=== PATIENT | female | born 1985 | race Caucasian/White ===

== ENCOUNTER → 2018-02-21 09:57 | Outpatient (CLI) | payer BC, SELFPAY ==
[2018-02-21 10:05] LABS: Adenovirus,PCR Not Detected (NotDetected); Bordetella Pertussis Not Detected (NotDetected); Chlamydophila Pneumoniae, PCR Not Detected (NotDetected); Coronavirus 229E Not Detected (NotDetected); Coronavirus NL63 Not Detected (NotDetected); Coronavirus OC43 Not Detected (NotDetected); Human Metapneumovirus Not Detected (NotDetected); Influenza A, PCR Not Detected (NotDetected); Influenza AH1, 2009 Not Detected (NotDetected); Influenza AH1, PCR Not Detected (NotDetected); Influenza AH3,PCR Not Detected (NotDetected); Influenza B, PCR Not Detected (NotDetected); Mycoplasma Pneumoniae, PCR Not Detected (NotDected); Parainfluenza 1, PCR Not Detected (NotDetected); Parainfluenza 2, PCR Not Detected (NotDetected); Parainfluenza 3, PCR Not Detected (NotDetected); Parainfluenza 4, PCR Not Detected (NotDetected); Respiratory Syncytial Virus Not Detected (NotDetected)
[2018-02-21 14:31] LABS: Coronovirus HKU1,PCR Detected (NotDetected); Rhinovirus/Enterovirus Detected (NotDetected)
== END ==
PROVIDERS: PCP Physician Assistant; Visit Provider Physician Assistant
DX: R09.89 Other specified symptoms and signs involving the circulatory and respiratory systems
CPT/HCPCS: 87486; 87581; 87633; 87798

== ENCOUNTER → 2020-06-24 11:13 | Outpatient (CLI) | payer BC, SELFPAY ==
[2020-06-24 13:29] LABS: Coronavirus 19 IgM Antibody Negative (Negative)
[2020-06-24 13:32] LABS: Coronavirus 19 IgG Antibody Positive (Negative)
[2020-06-25 15:49] LABS: Covid-19 Nasal PCR Sendout Lex Not Detected
== END ==
PROVIDERS: PCP Nurse Practitioner Family; Visit Provider Nurse Practitioner Family
DX: U07.1 COVID-19 (principal)
CPT/HCPCS: 36415; 86328; U0004

== ENCOUNTER 2020-09-20 08:58 | Emergency (ER) | payer BC, SELFPAY ==
[2020-09-20 09:14] VITALS: BP 117/75; PULSE 98; RESP 18; TEMP 36.6; O2SAT 97; BMI 36.0
[2020-09-20 09:23] LABS: UTC Strep Screen (Rapid) Negative (Negative)
--- NOTE | 2020-09-20 09:29 | HMH.EDUTC ---
[facility] [place] Disposition Clinical Impression: Viral syndrome Acute pharyngitis Qualifiers: Pharyngitis/tonsillitis etiology: unspecified etiology Qualified Code(s): J02.9 - Acute pharyngitis, unspecified Disposition: Home, Self-Care Condition on Discharge: Good Instructions: DI for Viral Syndrome, Preventing the Spread of Coronavirus Discharge Instructions Additional Instructions: Drink plenty of fluids. Take tylenol for pain or fever. Take the medications as directed. Follow up with your regular doctor. GO TO THE ER FOR ANY WORSENING SYMPTOMS FOLLOW THE DIRECTIONS ON THE COVID-19 HAND OUT THAT WE GAVE YOU REGARDING SELF-ISOLATION UNTIL YOU KNOW YOUR COVID-19 RESULTS Prescriptions: Ondansetron [Zofran 4mg ODT] 4 mg PO Q8HP PRN #10 tab.rapdis PRN Reason: Nausea Transmission Status: Received by [id number] Azithromycin [Z-Brody 250mg Tab*] 250 mg PO UD DOSE PK #6 tab Transmission Status: Received by [id number] Referrals: Maritza Griffin APRN [Primary Care Provider] - Time of Disposition: 09:34 Medical Decision Making - Medical Records Medical records reviewed: No: I reviewed the patient's medical records. - Lon Inquiry Pt receiving controlled substance: No Vital Signs: 09/20/20 09:14 09/20/20 09:35 Temperature 97.8 F 97.8 F Temperature Source Oral Pulse Rate 98 H Pulse Rate [Right Brachial] 98 H Respiratory Rate 18 18 Blood Pressure 117/75 Blood Pressure [Right Arm] 117/75 Blood Pressure Mean [Right Arm] 89 Blood Pressure Source [Right Arm] Automatic Cuff Blood Pressure Position [Right Arm] Sitting 02 Sat by Pulse Oximetry 97 Oxygen Delivery Method Room Air - Lab Data Lab results reviewed: Yes: I reviewed the patient's lab results. Lab Results 09/20/20 09:11: Strep Scn Rapid Clinic Negative Orders (Tests/Meds): ORDERS Category Date Time Status Covid-19 Nasal PCR ([facility]) Routine Lab 09/20/20 09:30 Received Strep Screen Confirmation Stat Micro 09/20/20 09:11 Received [facility] [place] HPI - General Stated complaint: headache,sore throat Time Seen by Provider: 09/20/20 09:15 Mode of Arrival: Ambulatory Source of Information: Patient Limitations: No Limitations Description of Symptoms (Recalled from Triage Doc. by RN): PATIENT C/O SORE THROAT AND HEADACHE SINCE YESTERDAY HEENT Symptoms (Recalled from RN notes): Yes Resp Symptoms (Recalled from RN notes): No Skin Symptoms (Recalled from RN notes): No MS Symptoms (Recalled from RN notes): No Functional Status (Recalled from RN notes): WNL - History of Present Illness Provider Complaint: She c/o 2 days of sore throat, body aches and feeling bad. She states she has a runny nose and some sinus congestion also. She denies any known exposure to COVID-19. 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 - Related Data Previous Rx's Medication Instructions Recorded Azithromycin [Z-Brody 250mg Tab*] 250 mg PO UD DOSE PK #6 tab 09/20/20 Ondansetron [Zofran 4mg ODT] 4 mg PO Q8HP PRN #10 tab.rapdis 09/20/20 Allergies Allergy/AdvReac Type Severity Reaction Status Date / Time cephalexin [From Keflex] Allergy Verified 09/20/20 09:19 Penicillins Allergy Verified 09/20/20 09:18 - Worker's Comp Is this a Worker's Comp case?: No [facility] History - Hepatitis A Screen Drug use history?: No High risk sexual behaviors?: No History of sexually transmitted infection?: No Currently employed?: No Childcare worker?: No Do you have indoor plumbing?: Yes Do you have electricity?: Yes Attestation statement:: This patient has been screened for Hepatitis A risk factors. I have reviewed the patient's past medical history: Yes - 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 Alcohol Intake: never Occupational Status: other ROS Obtained: Yes All systems reviewed & no additional complaints - Constitutional Constitutional: Reports chills, Reports fever(s), Reports poor appetite, Reports malaise
[2020-09-20 09:35] VITALS: BP 117/75; PULSE 98; RESP 18; TEMP 36.6; O2SAT 97
== END 2020-09-20 09:38 | disposition home or self-care (01) ==
PROVIDERS: Emergency Provider Nurse Practitioner Family; PCP Nurse Practitioner Family
DX: Z20.828 Contact with and (suspected) exposure to other viral communicable diseases (principal); B34.9 Viral infection, unspecified; J02.9 Acute pharyngitis, unspecified
CPT/HCPCS: 87880; 99202; U0003

== ENCOUNTER → 2020-10-02 11:18 | Outpatient (CLI) | payer BC, SELFPAY ==
[2020-10-02 16:25] LABS: Coronavirus 19 IgG Antibody Positive (Negative); Coronavirus 19 IgM Antibody Negative (Negative)
[2020-10-03 13:57] LABS: Covid-19 Nasal PCR Sendout Lex Not Detected
== END ==
PROVIDERS: PCP Nurse Practitioner Family; Visit Provider Nurse Practitioner Family
DX: Z03.818 Encounter for observation for suspected exposure to other biological agents ruled out (principal)
CPT/HCPCS: 36415; 86328; U0004

== ENCOUNTER → 2020-11-06 14:11 | Outpatient (CLI) | payer BC, SELFPAY ==
[2020-11-06 19:29] LABS: Coronavirus 19 IgG Antibody Positive (Negative); Coronavirus 19 IgM Antibody Negative (Negative)
[2020-11-08 13:58] LABS: Covid-19 Nasal PCR Sendout Lex Not Detected
== END ==
PROVIDERS: PCP Nurse Practitioner Family; Visit Provider Nurse Practitioner Family
DX: Z20.828 Contact with and (suspected) exposure to other viral communicable diseases (principal); Z86.19 Personal history of other infectious and parasitic diseases
CPT/HCPCS: 36415; 86328; U0004

== ENCOUNTER 2022-05-02 09:04 | Emergency (ER) | payer BC, SELFPAY ==
[2022-05-02 09:42] VITALS: BP 128/78; PULSE 111; RESP 17; TEMP 36.7; O2SAT 97; BMI 37.1
--- NOTE | 2022-05-02 09:48 | HMH.EDUTC ---
[facility] [place] Disposition Clinical Impression: Arm problems Disposition: Home, Self-Care Condition on Discharge: Good Instructions: DI for Arm Pain Additional Instructions: warm compresses on IV site may help with pain Over the Counter Motrin and Tylenol may help with pain Follow up with Family Doctor if no improvement or any worsening of symptoms Watch for signs of infection, redness, rash, drainage and streaking Straight to ER if any life threatening symptoms You was given outpatient order for Venous Doppler of left upper extremity make sure to call in the morning for time for procedure Referrals: Maritza Griffin APRN [Primary Care Provider] - As needed Time of Disposition: 10:11 Medical Decision Making - Lon Inquiry Pt receiving controlled substance: No Lon was queried for this patient: No Vital Signs: 05/02/22 09:42 05/02/22 10:08 Temperature 98.1 F 98.1 F Temperature Source Oral Pulse Rate 111 H Pulse Rate [Left Radial] 111 H Respiratory Rate 17 17 Blood Pressure 128/78 Blood Pressure [Right Arm] 128/78 Blood Pressure Mean [Right Arm] 94 02 Sat by Pulse Oximetry 97 [facility] [place] HPI - General Stated complaint: lt arm swelling/pain Time Seen by Provider: 05/02/22 09:49 Source of Information: Patient Description of Symptoms (Recalled from Triage Doc. by RN): patient comes in with complaints of left hand and arm swelling. patient had a procedure tuesday and had an iv. patient states that she had fluids and an antibiotic. left arm has redness and is slightly puffy. HEENT Symptoms (Recalled from RN notes): No Resp Symptoms (Recalled from RN notes): No Skin Symptoms (Recalled from RN notes): Yes MS Symptoms (Recalled from RN notes): No Functional Status (Recalled from RN notes): wnl - History of Present Illness Provider Complaint: Patient states that she had an IV placed on Tuesday and had IV antibiotic, fluids and they had to give her sugar in it because her sugar was low States that ever since she has been having achy like pain in her arm swelling States that she has been putting a heating pad on it but today it was still a little swollen so she came in - Related Data Previous Rx's Medication Instructions Recorded Azithromycin [Z-Brody 250mg Tab*] 250 mg PO UD DOSE PK #6 tab 09/20/20 Ondansetron [Zofran 4mg ODT] 4 mg PO Q8HP PRN #10 tab.rapdis 09/20/20 Allergies Allergy/AdvReac Type Severity Reaction Status Date / Time cephalexin [From Keflex] Allergy Verified 09/20/20 09:19 Penicillins Allergy Verified 09/20/20 09:18 - Worker's Comp Is this a Worker's Comp case?: No [facility] History - Hepatitis A Screen Attestation statement:: This patient has been screened for Hepatitis A risk factors. I have reviewed the patient's past medical history: Yes - 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 Alcohol Intake: never Occupational Status: other ROS Obtained: Yes All systems reviewed & no additional complaints, Yes Systems reviewed as appropriate & no additional complaints - Constitutional Constitutional: Reports system reviewed and no additional complaints, except as docu, Denies body ache, Denies chills, Denies fever(s) - ENT Ears, Nose, Mouth, and Throat: Reports system reviewed and no additional complaints, except as docu - Cardiovascular Cardiovascular: Reports system reviewed and no additional complaints, except as docu - Respiratory Respiratory: Reports system reviewed and no additional complaints, except as docu - Gastrointestinal Gastrointestingal: Reports: system reviewed and no additional complaints, except as docu - Allergic/Immunologic Comments: swelling and pain in her left arm after IV on Tuesday Physical Exam - General General appearance: alert, in no apparent distress - Respiratory Respiratory exam: Present: normal lung sounds bilaterally. Absent: respiratory distress - Cardiovascular Cardiovascular exam: Present: regular rate, normal rhythm. Absent: JVD - Expanded Upper
[2022-05-02 10:08] VITALS: BP 128/78; PULSE 111; RESP 17; TEMP 36.7
== END 2022-05-02 10:17 | disposition home or self-care (01) ==
PROVIDERS: Emergency Provider Nurse Practitioner; PCP Nurse Practitioner Family
DX: R60.0 Localized edema (principal)
CPT/HCPCS: 99211; 99281; G0463

== ENCOUNTER → 2022-05-03 13:39 | Outpatient (CLI) | payer BC, SELFPAY ==
--- NOTE | 2022-05-03 13:42 | CA_ITS ---
FINAL REPORT TECHNIQUE: Graded compression, spectral analysis and ultrasound images of the venous system of the upper extremity were obtained. CLINICAL HISTORY: .s/p lithotripsy 04/30/22, subsequent pain at lt wrist iv site radiating up arm. FINDINGS: The jugular vein, subclavian vein, axillary vein, brachial vein, and basilic venous system are fully compressible and demonstrate no evidence of thrombosis. A thrombus is identified in the left cephalic vein from the wrist to the elbow. Incidental note is made of a 1.2 cm left thyroid lobe nodule. IMPRESSION: Positive for thrombus in the left cephalic vein from wrist to elbow. A 1.2 cm left thyroid lobe nodule. Consider follow-up ultrasound in 6 months. Reviewed, Interpreted and Dictated by Sajan Hoang III, MD Transcribed by Huma Huynh Authenticated and [facility]
== END ==
PROVIDERS: PCP Nurse Practitioner Family; Visit Provider Nurse Practitioner
DX: M79.602 Pain in left arm (principal)
CPT/HCPCS: 93971

== ENCOUNTER → 2022-08-05 14:07 | Outpatient (CLI) | payer BC, SELFPAY ==
--- NOTE | 2022-08-05 14:08 | CA_ITS ---
FINAL REPORT TECHNIQUE: Sonographic images of the veins of the left upper extremity were obtained from axilla to antecubital fossa. Additionally, images of the internal jugular vein and subclavian vein were also obtained. CLINICAL HISTORY: Swelling LUE, hx left cephalic vein thrombosis COMPARISON: May 03, 2022 FINDINGS: The veins of the left upper extremity are compressible from axilla to antecubital fossa. Blood flow is demonstrated by both color and spectral Doppler as well. The internal jugular vein and subclavian vein are also patent. IMPRESSION: No evidence of venous thrombosis of the left upper extremity. Reviewed, Interpreted and Dictated by Sajan Hoang III, MD Transcribed by Haja Regan Authenticated and . [facility]
== END ==
PROVIDERS: PCP Family Medicine; Visit Provider Student in an Organized Health Care Education/Training Program
DX: I82.612 Acute embolism and thrombosis of superficial veins of left upper extremity (principal)
CPT/HCPCS: 93971

== ENCOUNTER 2022-08-15 10:26 | Emergency (ER) | payer BC, SELFPAY ==
[2022-08-15 10:45] VITALS: BP 124/81; PULSE 104; RESP 18; TEMP 37.1; O2SAT 97; BMI 37.1
[2022-08-15 10:51] LABS: UTC Strep Screen (Rapid) Negative (Negative)
[2022-08-15 10:52] LABS: UTC Influenza A Antigen Negative (Negative); UTC Influenza B Antigen Negative (Negative)
--- NOTE | 2022-08-15 10:56 | EXP.UTC ---
Discharge Plan Disposition Patient Disposition: Home, Self-Care Prescriptions Prescriptions: New fluticasone propionate [fluticasone propionate] 50 mcg/actuation spray,suspension 1 spray intranasal DAILY 14 Days Qty: 9.9 0RF azithromycin [Zithromax Z-Brody] 250 mg tablet 250 mg PO DAILY 5 Days Qty: 5 0RF Continued buspirone 7.5 mg tablet 7.5 mg PO BID 90 Days Qty: 180 1RF levocetirizine 5 mg tablet 5 mg PO DAILY 90 Days Qty: 90 2RF lisinopril 20 mg tablet 20 mg PO DAILY Qty: 90 3RF potassium citrate 15 mEq tablet extended release 30 meq PO DAILY 90 Days Qty: 180 1RF zafirlukast 20 mg tablet 20 mg PO BID 90 Days Qty: 180 3RF cyclobenzaprine 5 mg tablet 5 mg PO BID glycopyrrolate 1 mg tablet 1 mg PO BID Rx Instructions: 2 tabs am, 1 tab pm norethindrone-e.estradiol-iron [ 1.5/30 (28)] 1.5 mg-30 mcg (21)/75 mg (7) tablet 1 tab PO DAILY meloxicam 7.5 mg tablet 7.5 mg PO DAILY metformin 500 mg tablet 500 mg PO BID Rx Instructions: 1 tab am, 2 tabs pm topiramate 100 mg tablet 100 mg PO BID Rx Instructions: 1/2 tab am, 1 tab pm sertraline 50 mg tablet 50 mg PO DAILY pantoprazole 40 mg tablet,delayed release (DR/EC) 40 mg PO DAILY loratadine 10 mg tablet 10 mg PO DAILY No Action fluticasone propionate 50 mcg/actuation spray,suspension 2 spray NS DAILY Referrals Follow up/Referrals: Provider,Referral, MD [Referring] - See instructions Clinical Impressions Clinical Impression: Acute maxillary sinusitis, Otitis media Instructions Patient Instructions: DI for Sinusitis, Sinusitis Discharge ED Provider: Franky ([facility] [facility] [place] General Stated complaint: Sore throat, stuffy ears, drainage Mode of Arrival: Ambulatory Source of Information: Patient Limitations: No Limitations Time Seen by Provider: 08/15/22 10:56 Description of Symptoms (Recalled from Triage Doc. by RN): pt comes in with c/o nasal drainage, sore throat, bilateral ear pain, cough, fatigue. symptoms began tuesday. pt states she was seen at [facility], but has not felt began to feel better. HEENT Symptoms (Recalled from RN notes): Yes Resp Symptoms (Recalled from RN notes): Yes Skin Symptoms (Recalled from RN notes): No MS Symptoms (Recalled from RN notes): No Functional Status (Recalled from RN notes): n/a History of Present Illness Provider Complaint: 37 yr old female presents with c/o green nasal drainage, sore throat, bilateral ear pain, cough, fatigue. symptoms began Tuesday. pt states she was seen at [facility], but has not felt began to feel better. Onset (ago): day(s) Related Data Home Medications Medication Instructions Recorded Confirmed cyclobenzaprine 5 mg tablet 5 mg PO BID Arthritis 08/15/22 08/15/22 fluticasone propionate 50 2 spray intranasal DAILY Allergy 08/15/22 08/15/22 mcg/actuation nasal symptoms spray,suspension glycopyrrolate 1 mg tablet 1 mg PO BID Kidney stones 08/15/22 08/15/22 loratadine 10 mg tablet 10 mg PO DAILY Allergy symptoms 08/15/22 08/15/22 meloxicam 7.5 mg tablet 7.5 mg PO DAILY Arthritis 08/15/22 08/15/22 metformin 500 mg tablet 500 mg PO BID Diabetes 08/15/22 08/15/22 norethindrone 1.5 mg-ethinyl 1 tab PO DAILY control 08/15/22 08/15/22 estradiol 30 mcg(21)/iron 75 mg(7) tablet (June FE 1.5/30 (28)) pantoprazole 40 mg tablet,delayed 40 mg PO DAILY GERD 08/15/22 08/15/22 release sertraline 50 mg tablet 50 mg PO DAILY Depression 08/15/22 08/15/22 topiramate 100 mg tablet 100 mg PO BID Headache 08/15/22 08/15/22 Previous Rx's Medication Instructions Recorded buspirone 7.5 mg tablet 7.5 mg PO BID Anxiety 90 days #180 08/04/22 tabs levocetirizine 5 mg tablet 5 mg PO DAILY Allergies 90 days 08/04/22 #90 tabs lisinopril 20 mg tablet 20 mg PO DAILY HTN #90 tabs 08/04/22 potassium citrate 15 mEq (1,620 30 meq PO DAILY Renal stones 90
[2022-08-15 11:08] VITALS: BP 124/81; PULSE 104; RESP 18; TEMP 37.1
== END 2022-08-15 11:13 | disposition home or self-care (01) ==
PROVIDERS: Emergency Provider Nurse Practitioner Family; PCP Family Medicine
DX: J01.00 Acute maxillary sinusitis, unspecified (principal); H66.90 Otitis media, unspecified, unspecified ear
CPT/HCPCS: 87804; 87880; 96372; 99212; C9803; G0463; U0003; U0005

== ENCOUNTER → 2022-11-15 08:13 | Outpatient (CLI) | payer BC, SELFPAY ==
--- NOTE | 2022-11-15 08:14 | CT_ITS ---
FINAL REPORT TECHNIQUE: Thin section axial CT images of the facial bones and sinuses were obtained without contrast. Coronal reformatted images were also obtained.This study was performed with techniques to keep radiation doses as low as reasonably achievable, (ALARA). Individualized dose reduction techniques using automated exposure control or adjustment of mA and/or kV according to the patient''''s size were employed. CLINICAL HISTORY: nasal drainage FINDINGS: There is mild mucosal thickening in the bilateral maxillary sinuses. No other mucosal thickening is seen. No fluid levels are identified. The ostiomeatal units have an unremarkable appearance. There is a mild rightward nasal septal deviation. No fracture or acute bony abnormality is identified. IMPRESSION: Mild bilateral maxillary sinus disease. Reviewed, Interpreted and Dictated by Sajan Hoang III, MD Transcribed by Yudith Carvalho Authenticated and . [facility]
== END ==
PROVIDERS: PCP Family Medicine; Visit Provider Student in an Organized Health Care Education/Training Program
DX: J34.89 Other specified disorders of nose and nasal sinuses (principal); K21.9 Gastro-esophageal reflux disease without esophagitis; R09.89 Other specified symptoms and signs involving the circulatory and respiratory systems
CPT/HCPCS: 70486

== ENCOUNTER → 2022-11-19 12:51 | Outpatient (CLI) | payer BC, SELFPAY ==
--- NOTE | 2022-11-19 12:55 | US_ITS ---
FINAL REPORT CLINICAL HISTORY: follow-up on thyroid nodule from 04/2022 FINDINGS: Sonographic images of the thyroid were obtained. The right lobe of the thyroid measures 4.1 x 1.4 x 1.9 cm. The left lobe of the thyroid measures 4.6 x 1.7 x 2.0 cm. The isthmus measures 0.30 cm. Several small nodules are identified. There is a dominant nodule on the left. This nodule is solid and hypoechoic measuring 18 x 15 x 14 mm consistent with TI-RADS category 4. Other less than 5 mm nodules are cystic. IMPRESSION: Several small thyroid nodules. Recommended ultrasound-guided biopsy of the dominant nodule on the left. Reviewed, Interpreted and Dictated by Sajan Hoang III, MD Transcribed by Sherri Pedraza Authenticated and [facility]
== END ==
PROVIDERS: PCP Family Medicine; Visit Provider Family Medicine
DX: E04.1 Nontoxic single thyroid nodule (principal)
CPT/HCPCS: 76536

== ENCOUNTER → 2022-12-01 07:27 | Outpatient (CLI) | payer BC, OTHER, SELFPAY ==
--- NOTE | 2022-12-01 07:27 | US_ITS ---
FINAL REPORT CLINICAL HISTORY: . FINDINGS: Ultrasound guided thyroid biopsy. HISTORY: Left thyroid mass Attending radiologist: Dr. Pierson Physician Serging Machine Operator Automatic: Pierre Flaherty PA-C PROCEDURE: After informed consent was obtained and a time-out was performed, the patient was prepped and draped in usual sterile fashion over the left neck. Utilizing local anesthesia and sterile technique with a 25-gauge needle, access to lesion was obtained. 5 passes were made.The patient received no conscious sedation. The patient tolerated procedure well and left the department in good condition. IMPRESSION: Status post ultrasound guided biopsy of the left lobe of the thyroid without immediate complication. Films reviewed , interpreted and dictated by Dr. Pierson. Transcribed by Pierre Flaherty PA-C. Reviewed, Interpreted and Dictated by Morgan Pierson MD Transcribed by JASMINE Daniels Authenticated and [facility]
== END ==
PROVIDERS: PCP Family Medicine; Visit Provider Student in an Organized Health Care Education/Training Program
DX: E04.1 Nontoxic single thyroid nodule (principal)
CPT/HCPCS: 10005; 76536

== ENCOUNTER → 2022-12-27 08:19 | Outpatient (CLI) | payer BC, OTHER, SELFPAY ==
--- NOTE | 2022-12-27 08:19 | US_ITS ---
FINAL REPORT CLINICAL HISTORY: .repeat fna lt lobe-- path present-- pierre gu -- thyroseq sent FINDINGS: Ultrasound guided thyroid biopsy. HISTORY: . Nodule within the left lobe of the thyroid. Attending radiologist: Dr. Hoang Physician Reed Or Wind Instrument Repairer: Pierre Gu PA-C PROCEDURE: After informed consent was obtained and a time-out was performed, the patient was prepped and draped in usual sterile fashion over the left neck. Utilizing local anesthesia and sterile technique with a 25-gauge needle, access to lesion was obtained. Three passes were made. The pathologist indicated the specimens were adequate for diagnostic purposes. The patient received no conscious sedation. The patient tolerated procedure well and left the department in good condition. IMPRESSION: Status post ultrasound guided biopsy of thyroid without immediate complication. Films reviewed , interpreted and dictated by Dr. Hoang. Transcribed by Pierre Gu PA-C. Reviewed, Interpreted and Dictated by Sajan Hoang III, MD Transcribed by JASMINE Daniels Authenticated and [facility]
== END ==
PROVIDERS: PCP Family Medicine; Visit Provider Student in an Organized Health Care Education/Training Program
DX: E04.1 Nontoxic single thyroid nodule (principal)
CPT/HCPCS: 10005; 76536; 88172; 88173

== ENCOUNTER 2023-01-13 16:30 | Outpatient (RCR) | payer BC, OTHER, SELFPAY | END 2023-02-15 08:30 | disposition home or self-care (01) | LOC: PT 16:30 | PROVIDERS: PCP Family Medicine; Visit Provider Orthopaedic Surgery Adult Reconstructive Orthopaedic Surgery | DX: M70.62 Trochanteric bursitis, left hip (principal) | CPT/HCPCS: 97010; 97014; 97033; 97035; 97110; 97140; 97163; 97164; G0283 ==

== ENCOUNTER → 2023-02-04 16:21 | Outpatient (CLI) | payer BC, OTHER, SELFPAY ==
--- NOTE | 2023-02-04 16:37 | ECG_ITS ---
APPROVED REPORT Exam: Resting ECG HR:64 bpm ECG Measurements Heart Rate 64 AXES TX 176 P 36 QRSd 94 QRS 29 QT 387 T 43 QTc 396 Conclusion SINUS RHYTHM NORMAL ECG UNCONFIRMED REPORT Electronically signed by : Mauricio Mercedes MD 02/04/2023 21:09:42
[2023-02-04 17:32] LABS: Basophils # 0.1 K/mm3 (0-0.2); Basophils % 0.6 % (0.1-2.0); Eosinophils # 0.2 K/mm3 (0.0-0.4); Hematocrit 40.4 % (37.0-47.0); Hemoglobin 13.1 g/dL (12.2-16.2); Lymphocytes # 3.5 K/mm3 (0.7-4.5); Mean Corpuscular HGB Conc 32.4 g/dL (31.8-35.4); Mean Corpuscular Hemoglobin 29.2 pg (27.0-31.2); Mean Corpuscular Volume 90.3 fl (81-99); Mean Platelet Volume 7.7 fl (7.4-10.4); Monocytes # 0.4 K/mm3 (0.1-1.0); Neutrophils # 5.9 K/mm3 (1.8-7.8); Neutrophils % 58.4 % (37.0-80.0); Platelet Count 391 K/mm3 (142-424); Red Blood Count 4.48 M/mm3 (4.20-5.40); Red Cell Distribution Width 14.5 % (11.5-17.5)
[2023-02-04 17:56] LABS: Chloride 101 mmol/L (98-107); Potassium 4.5 mmoL/L (3.5-5.1); Sodium 136 mmol/L (136-145)
[2023-02-04 17:59] LABS: Alanine Aminotransferase 23 U/L (12-78); Albumin Level 3.9 g/dl (3.5-5.0); Albumin/Globulin Ratio 1.4 (1.1-1.8); Alkaline Phosphatase 49 U/L (38-126); Anion Gap 12.5 mEq/L (5-15); Aspartate Amino Transferase 22 U/L (14-36); Bilirubin,Total 0.2 mg/dl (0.2-1.3); Blood Urea Nitrogen 7 mg/dl (7-17); Carbon Dioxide 27 mmol/L (22.0-30.0); Estimated Glomerular Filt Rate 112 ml/min (>60); GFR (African American) 135 ML/MIN (>60); Globulin 2.7 g/dL (1.3-3.2); Glucose 79 mg/dl (74-100); Total Protein,Serum 6.6 g/dl (6.3-8.2)
== END ==
PROVIDERS: PCP Family Medicine; Visit Provider Student in an Organized Health Care Education/Training Program
DX: Z01.818 Encounter for other preprocedural examination (principal); E04.1 Nontoxic single thyroid nodule
CPT/HCPCS: 36415; 80053; 85025; 93005

== ENCOUNTER 2023-02-09 06:59 | Day surgery (SDC) | payer BC, OTHER, SELFPAY ==
[2023-02-08 11:30] VITALS: BMI 38.7
[2023-02-09] VITALS (14 sets, daily range): BP systolic 123–154; BP diastolic 75–91; PULSE 88–105; RESP 10–18; TEMP 36.2–36.6; O2SAT 93–95
[2023-02-09 07:15] LABS: Urine Pregnancy, HCG Qual. Negative (Negative)
--- NOTE | 2023-02-09 07:45 | EXP.ANES.CKL ---
[facility] Disclaimer: The information contained in this section may have been updated after the patient was seen, as this information can be updated by other users. 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 Allergic rhinitis Anxiety and depression Chronic throat clearing Deviated nasal septum Gastroesophageal reflux disease Nasal drainage Thyroid Nodule Surgical History H/O lithotripsy History of bladder surgery History of extraction of renal calculus History of sinus surgery Family History Mother Diabetes Coronary artery disease Hyperlipidemia Hypertension Father Coronary artery disease Hyperlipidemia Hypertension Other Family history of cancer 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 (Updated 02/09/23 @ 07:24 by Antionette Moss RN) Smoking Status: Never smoker second hand exposure: No alcohol intake: never substance use type: denies use current occupational status: employed Travel in the last 8 weeks: None household members: family housing: house lives independently: No marital status: education level: master's degree caffeine: Yes special meron needs: No agree to transfusion: No do you feel safe at home: Yes victim of physical abuse: No victim of emotional abuse: No victim of sexual abuse: No would you like helpful sources: No [facility] Anesthesia Checklist Patient Identification Patient Identification: Arm Band Structural Data Admitted From: Home Planned Operative Procedure/s: Left Hemithyroidectomy Consent for Planned Operative Procedure(s) Verified: Yes Verified Documents: Surgical Consent and History and Physical NPO Status Verified Time NPO: 00:00 Additional verifications Anesthesia Reactions: No Hx Blood Transfusions: No Blood Transfusion Reaction: No Airway Assessment C-Spine Mobility Assessed: Yes TMJ Mobility Assessed: Yes Dentition: Good Dentition Neurological Assessment Level of Consciousness: Awake and Alert Anesthesia Plan Anesthesia Risk discussed: Yes Anesthesia Plan: Verified ASA Class: II Anesthesia Type: General
--- NOTE | 2023-02-09 10:58 | EXP.OP.NOTE ---
Date of procedure: 02/09/23 Pre-op Diagnosis:: left thyroid nodule Post-op Diagnosis:: same Procedure performed:: left hemithyroidectomy Surgeon:: Renato Montano MD Anesthesia: GETA Estimated blood loss (mL): 10 Operative findings:: left hemithyroidectomy, palpable small nodule within lobe, no obvious central neck masses Operative note:: The patient was brought to the OR, laid in the supine position, and general anesthesia with a NIMS nerve monitoring endotracheal tube was induced.? Nerve monitor was set up and confirmed to be working appropriately.? Patient was prepped and draped in usual fashion.? Lidocaine with epinephrine 1-100,000 was injected below the incision site.? I dissected through the skin, subcutaneous tissues, and platysma.? The strap muscles were identified at?the midline raphae.? The strap muscles were divided at the raphae.? I then began to dissect the strap muscles off of the left? side of the?thyroid.? I isolated the superior pedicle and was taken down with a harmonic.? ?We then came inferiorly again freeing thyroid from the surrounding tissue.?I was able to palpate a firm nodule in the inferior aspect of the lobe, no obvious extrathyroidal extension seen. I then began to roll the thyroid in a lateral to medial fashion out?of the patient's neck.? The recurrent laryngeal nerve was identified and preserved during this process.? I dissected through Severino's ligament and dissected the lobe off the trachea. The thyroid was divided at the midline isthmus and then sent for permanent pathology.? Patient's neck was then thoroughly irrigated out.? Hemostasis was achieved with bipolar cautery.? The recurrent laryngeal nerve stimulated both proximally and distally at the end of the case.? 15 Upper Sorbian drain was fashioned in the patient's neck.? The?incision was then closed in 2 layers.? They?were?then turned back over to anesthesia to be awoken and extubated. Condition: stable Disposition: PACU Complications:: none
--- NOTE | 2023-02-09 11:05 | EXP.ANES.I ---
[facility] Anesthesia Record Part I Anesthesia Record I Intake, IV Amount: 1,100 Estimated blood loss (mL): 10 Urine output (mL): 0 Blood Pressure: 123/75 SaO2: 94 Pulse Rate: 102 Respiratory Rate: 10 Temperature: 97.7 F Patient is:: Drowsy, Mask O2, Oral/Nasal airway and Stable Stable to PACU at:: 11:03
[2023-02-09 11:22] LABS: POC Glucose,Bedside 108 (70-110)
--- NOTE | 2023-02-09 12:17 | SUR.PHASEII ---
Pt c/o headache and requesting tylenol. Contacted specialty clinic states MD is at lunch. Dr. Montano paged to call post op @ [phone].
--- NOTE | 2023-02-09 15:05 | P.PNANES_ITS ---
[facility] Anesthesia Record Part II Anesthesia Record Part II Discharge Time: 11:52 Destination: Surgical Day Care (OP Surgery) PACU nurse assessment reviewed?: Yes Patient Condition:: Good Anesthesia Complications:: None Swallowing reflex intact?: Yes Cyanosis?: No Blood Pressure: 132/81 Pulse Rate: 99 Temperature: 97.6 F Mental Status: Alert & Oriented Pain level:: 3 Nausea and/or vomitting:: None Intake, IV Amount: 0
[2023-02-09 20:36] LABS: POC Glucose,Bedside 95 (70-110)
== END 2023-02-09 12:40 | disposition home or self-care (01) ==
PROVIDERS: PCP Family Medicine; Visit Provider Student in an Organized Health Care Education/Training Program
PROC: (CPT 60225; principal; 2023-02-09 08:30)
DX: D44.0 Neoplasm of uncertain behavior of thyroid gland (principal); Z79.899 Other long term (current) drug therapy
CPT/HCPCS: 60225; 81025; 82962; 96374; J0330; J2405

== ENCOUNTER → 2023-02-23 13:42 | Outpatient (CLI) | payer BC, SELFPAY ==
[2023-02-23 16:24] LABS: Free T4 (Free Thyroxine) 1.16 ng/dl (0.78-2.19)
[2023-02-23 16:38] LABS: Thyroid Stimulating Hormone 1.56 uIU/mL (0.465-4.68)
== END ==
PROVIDERS: PCP Family Medicine; Visit Provider Student in an Organized Health Care Education/Training Program
DX: E89.0 Postprocedural hypothyroidism (principal)
CPT/HCPCS: 36415; 84439; 84443

== ENCOUNTER → 2023-04-27 23:29 | Outpatient (CLI) | payer BC, SELFPAY ==
[2023-04-27 17:21] LABS: Hemoglobin A1C 5.5 % (4.0-6.0)
== END ==
PROVIDERS: PCP Nurse Practitioner Family; Visit Provider Nurse Practitioner Family
DX: I10 Essential (primary) hypertension (principal); Z79.899 Other long term (current) drug therapy
CPT/HCPCS: 83036

== ENCOUNTER → 2023-06-24 11:00 | Outpatient (CLI) | payer BC, SELFPAY ==
[2023-06-24 16:33] LABS: Basophils % 0.3 % (0.1-2.0); Eosinophils # 0.2 K/mm3 (0.0-0.4); Hematocrit 43.8 % (37.0-47.0); Hemoglobin 13.5 g/dL (12.2-16.2); Lymphocytes # 2.4 K/mm3 (0.7-4.5); Lymphocytes % 24.6 % (10-50); Mean Corpuscular HGB Conc 30.7 g/dL (31.8-35.4); Mean Corpuscular Hemoglobin 27.9 pg (27.0-31.2); Mean Corpuscular Volume 90.7 fl (81-99); Mean Platelet Volume 9.1 fl (7.4-10.4); Monocytes # 0.3 K/mm3 (0.1-1.0); Monocytes % 3.3 % (1.7-9.3); Neutrophils # 6.9 K/mm3 (1.8-7.8); Neutrophils % 69.7 % (37.0-80.0); Platelet Count 363 K/mm3 (142-424); Red Blood Count 4.83 M/mm3 (4.20-5.40); Red Cell Distribution Width 14.1 % (11.5-17.5); White Blood Count 9.8 K/mm3 (4.8-10.8)
[2023-06-24 16:40] LABS: Alanine Aminotransferase 30 U/L (12-78); Albumin/Globulin Ratio 1.5 (1.1-1.8); Alkaline Phosphatase 64 U/L (38-126); Aspartate Amino Transferase 31 U/L (14-36); Bilirubin,Total 0.2 mg/dl (0.2-1.3); Blood Urea Nitrogen 7 mg/dl (7-17); Calcium 9.4 mg/dl (8.4-10.2); Carbon Dioxide 23 mmol/L (22.0-30.0); Chloride 108 mmol/L (98-107); Chol/HDL Ratio 4.4 (1-3.5); Cholesterol 162 mg/dl (140-200); Estimated Glomerular Filt Rate 111 ml/min (>60); GFR (African American) 135 ML/MIN (>60); Globulin 2.6 g/dL (1.3-3.2); Glucose 89 mg/dl (74-100); HDL Cholesterol 37 mg/dl (40-60); Sodium 139 mmol/L (136-145); Total Protein,Serum 6.6 g/dl (6.3-8.2); Triglycerides 236 mg/dl (30-150); VLDL Cholesterol 47 mg/dL (0-40)
[2023-06-24 16:51] LABS: Direct LDL Cholesterol 93.52 mg/dL (100-129)
[2023-06-24 16:55] LABS: Free T4 (Free Thyroxine) 0.95 ng/dl (0.78-2.19)
[2023-06-24 16:56] LABS: Triiodothryronine (T3) Uptake 25 % (23.5-40.5)
[2023-06-24 16:59] LABS: T4 (Thyroxine) 10.5 ug/dl (5.53-11.0)
[2023-06-24 17:13] LABS: Thyroid Stimulating Hormone 2.01 uIU/mL (0.465-4.68)
== END ==
PROVIDERS: PCP Nurse Practitioner Family; Visit Provider Nurse Practitioner Family
DX: E03.9 Hypothyroidism, unspecified (principal); I10 Essential (primary) hypertension; F41.9 Anxiety disorder, unspecified; Z79.899 Other long term (current) drug therapy
CPT/HCPCS: 80053; 80061; 84436; 84439; 84443; 84479; 85025

== ENCOUNTER → 2023-07-20 23:15 | Outpatient (CLI) | payer BC, SELFPAY | PROVIDERS: PCP Family Medicine; Visit Provider Family Medicine | DX: R35.0 Frequency of micturition (principal); B95.1 Streptococcus, group B, as the cause of diseases classified elsewhere | CPT/HCPCS: 87086; 87088; 87186 ==

== ENCOUNTER → 2023-07-29 17:20 | Outpatient (CLI) | payer BC, SELFPAY ==
[2023-07-29 18:28] LABS: Basophils % 0.4 % (0.1-2.0); Eosinophils # 0.2 K/mm3 (0.0-0.4); Eosinophils % 2.5 % (0.1-12.0); Hematocrit 39.4 % (37.0-47.0); Hemoglobin 12.6 g/dL (12.2-16.2); Lymphocytes % 34.1 % (10-50); Mean Corpuscular HGB Conc 31.9 g/dL (31.8-35.4); Mean Corpuscular Hemoglobin 29.3 pg (27.0-31.2); Mean Corpuscular Volume 91.8 fl (81-99); Mean Platelet Volume 8.2 fl (7.4-10.4); Monocytes # 0.4 K/mm3 (0.1-1.0); Monocytes % 4.9 % (1.7-9.3); Neutrophils # 5.2 K/mm3 (1.8-7.8); Neutrophils % 58.2 % (37.0-80.0); Platelet Count 447 K/mm3 (142-424); Red Blood Count 4.29 M/mm3 (4.20-5.40); Red Cell Distribution Width 13.9 % (11.5-17.5); White Blood Count 8.9 K/mm3 (4.8-10.8)
[2023-07-29 18:56] LABS: Hemoglobin A1C 6.1 % (4.0-6.0)
[2023-07-29 19:02] LABS: Erythrocyte Sedimentation Rate 24 mm/hr (0-20)
[2023-07-29 19:05] LABS: Anion Gap 16.9 mEq/L (5-15); Blood Urea Nitrogen 8 mg/dl (7-17); Calcium 9.1 mg/dl (8.4-10.2); Carbon Dioxide 24 mmol/L (22.0-30.0); Chloride 102 mmol/L (98-107); Estimated Glomerular Filt Rate 111 ml/min (>60); GFR (African American) 135 ML/MIN (>60); Glucose 89 mg/dl (74-100); Potassium 4.9 mmoL/L (3.5-5.1); Sodium 138 mmol/L (136-145)
[2023-07-29 19:11] LABS: C-Reactive Protein 7.2 mg/L (0-4)
[2023-07-29 20:14] LABS: Vitamin B12 463 pg/mL (239-931)
[2023-07-29 20:18] LABS: Folate > 20.00 ng/mL
[2023-08-03 09:20] LABS: Antinuclear Antibodies (ANA) Negative
== END ==
PROVIDERS: PCP Nurse Practitioner Family; Visit Provider Nurse Practitioner Family
DX: R63.5 Abnormal weight gain (principal); R20.2 Paresthesia of skin; R53.83 Other fatigue; G47.00 Insomnia, unspecified; Z68.39 Body mass index [BMI] 39.0-39.9, adult
CPT/HCPCS: 80048; 82607; 82746; 83036; 85025; 85651; 86038; 86140

== ENCOUNTER → 2023-10-05 09:18 | Outpatient (CLI) | payer BC, SELFPAY ==
--- NOTE | 2023-10-05 | US_ITS ---
FINAL REPORT CLINICAL HISTORY: HTN, bilateral rest pain, bilateral claudication COMPARISON: None FINDINGS: ANKLE-BRACHIAL PRESSURE INDICES Pressure indices are as follows: RIGHT LOWER EXTREMITY: Ankle-brachial pressure index: 1.2 Comments: Normal LEFT LOWER EXTREMITY: Ankle-brachial pressure index: 1.1 Comments: Normal IMPRESSION: No evidence of significant obstructive peripheral vascular disease of the lower extremities Reviewed, Interpreted and Dictated by Magaly Lau MD Transcribed by Huma Huynh Authenticated and [facility]
== END ==
PROVIDERS: PCP Nurse Practitioner Family; Visit Provider Nurse Practitioner Family
DX: I70.213 Atherosclerosis of native arteries of extremities with intermittent claudication, bilateral legs (principal)
CPT/HCPCS: 93923

== ENCOUNTER 2023-12-28 12:53 | Outpatient (CLI) | payer BC, OTHER, SELFPAY ==
--- NOTE | 2023-12-28 12:56 | CT_ITS ---
FINAL REPORT TECHNIQUE: Axial images through the abdomen and pelvis was performed by computed tomography. Oral contrast was given. This study was performed with techniques to keep radiation doses as low as reasonably achievable (ALARA). Individualized dose reduction techniques using automated exposure control or adjustment of mA and/or kV according to the patient's size were employed. CLINICAL HISTORY: abd pain FINDINGS: Abdomen: Lung bases are clear. Liver, spleen, pancreas and adrenal glands have a normal CT appearance in their limited unenhanced state. The gallbladder is normal. There are tiny nonobstructing bilateral renal stones. No obvious renal mass is present. No ureteral stones are present. No bowel obstruction is identified. There is a small umbilical hernia containing fat. Pelvis: The appendix is not visualized. There is mild fecal impaction in the distal colon. The uterus and ovaries are unremarkable. No distal ureteral stones are seen. Bladder is unremarkable. There is trace free fluid. There is no adenopathy. IMPRESSION: No bowel obstruction. Numerous tiny nonobstructing bilateral renal stones. Trace pelvic free fluid. Reviewed, Interpreted and Dictated by Morgan Pierson MD Transcribed by Sherri Pedraza Authenticated and [facility]
[2023-12-28 13:42] LABS: Basophils # 0.1 K/mm3 (0-0.2); Basophils % 0.5 % (0.1-2.0); Eosinophils # 0.2 K/mm3 (0.0-0.4); Eosinophils % 1.9 % (0.1-12.0); Hematocrit 35.7 % (37.0-47.0); Hemoglobin 13.8 g/dL (12.2-16.2); Lymphocytes # 2.6 K/mm3 (0.7-4.5); Lymphocytes % 24.5 % (10-50); Mean Corpuscular HGB Conc 38.7 g/dL (31.8-35.4); Mean Corpuscular Hemoglobin 34.6 pg (27.0-31.2); Mean Corpuscular Volume 89.5 fl (81-99); Mean Platelet Volume 7.8 fl (7.4-10.4); Monocytes # 0.3 K/mm3 (0.1-1.0); Neutrophils # 7.4 K/mm3 (1.8-7.8); Platelet Count 297 K/mm3 (142-424); Red Blood Count 3.99 M/mm3 (4.20-5.40); Red Cell Distribution Width 14.2 % (11.5-17.5); White Blood Count 10.6 K/mm3 (4.8-10.8)
[2023-12-28 14:25] LABS: Chloride 105 mmol/L (98-107); Potassium 4.5 mmoL/L (3.5-5.1); Sodium 138 mmol/L (136-145)
[2023-12-28 14:27] LABS: Amylase 61 U/L (30-110); Blood Urea Nitrogen 8 mg/dl (7-17); Estimated Glomerular Filt Rate 93 ml/min (>60); GFR (African American) 113 ML/MIN (>60)
[2023-12-28 14:28] LABS: Alanine Aminotransferase 28 U/L (12-78); Albumin/Globulin Ratio 1.5 (1.1-1.8); Alkaline Phosphatase 50 U/L (38-126); Anion Gap 11.5 mEq/L (5-15); Aspartate Amino Transferase 26 U/L (14-36); Bilirubin,Total 0.3 mg/dl (0.2-1.3); Calcium 9.6 mg/dl (8.4-10.2); Carbon Dioxide 26 mmol/L (22.0-30.0); Globulin 2.6 g/dL (1.3-3.2); Glucose 110 mg/dl (74-100); Lipase 64 U/L (23-300); Total Protein,Serum 6.6 g/dl (6.3-8.2)
== END 2023-12-28 23:59 ==
PROVIDERS: PCP Nurse Practitioner Family; Visit Provider Family Medicine
DX: R10.30 Lower abdominal pain, unspecified (principal); R10.9 Unspecified abdominal pain
CPT/HCPCS: 36415; 74176; 80053; 82150; 83690; 85025; 87086

== ENCOUNTER 2024-01-10 14:13 | Outpatient (CLI) | payer BC, SELFPAY ==
--- NOTE | 2024-01-10 14:14 | US_ITS ---
FINAL REPORT CLINICAL HISTORY: Thyroid Nodule COMPARISON: 11/19/2022 FINDINGS: THYROID ULTRASOUND: Since the prior exam of 11/19/2022 the left thyroid gland has been surgically resected. The right thyroid gland measures 4.9 x 1.6 x 1.6 cm in size. There is a 4 x 4 x 2 mm nodule in the right thyroid, solid, hypoechoic, a TI-RADS category 4 nodule. There is a 3 x 3 x 2 mm nodule, some, hypoechoic, TI-RADS category 4 nodule. There is a 5 x 5 x 3 mm nodule in the right rate, larger than noted on the previous exam, when the same nodule measured 3 x 3 x 2 mm in size. This nodule is hypoechoic, with punctate echogenic foci, a TI-RADS category 5 nodule. Recommend 6-month follow-up ultrasound IMPRESSION: In the interval since the prior exam of 2021 the patient has undergone a left thyroidectomy. 3 nodules are present in the right thyroid, 1 of which is larger than noted on the prior exam, a TI-RADS category 5 nodule. Recommend 6-month ultrasound follow-up. Reviewed, Interpreted and Dictated by Sajan Hoang III, MD Transcribed by Eula Alexander Authenticated and [facility]
== END 2024-01-10 23:59 ==
LOC: RAD 14:14
PROVIDERS: PCP Nurse Practitioner Family; Visit Provider Student in an Organized Health Care Education/Training Program
DX: E04.1 Nontoxic single thyroid nodule (principal)
CPT/HCPCS: 76536

== ENCOUNTER 2024-01-18 16:22 | Outpatient (CLI) | payer BC, SELFPAY ==
[2024-01-18 17:22] LABS: Free T4 (Free Thyroxine) 0.97 ng/dl (0.78-2.19)
[2024-01-18 17:35] LABS: Thyroid Stimulating Hormone 1.64 uIU/mL (0.465-4.68)
== END 2024-01-18 23:59 ==
LOC: LAB 16:22
PROVIDERS: PCP Nurse Practitioner Family; Visit Provider Student in an Organized Health Care Education/Training Program
DX: E89.0 Postprocedural hypothyroidism (principal)
CPT/HCPCS: 36415; 84439; 84443

== ENCOUNTER 2024-01-21 17:45 | Emergency (ER) | payer BC, SELFPAY ==
[2024-01-21 17:55] VITALS: BP 109/77; PULSE 103; RESP 20; TEMP 36.4; O2SAT 98; BMI 36.4
[2024-01-21 18:28] LABS: UTC Strep Screen (Rapid) Negative (Negative)
[2024-01-21 18:29] VITALS: BP 109/77; PULSE 103; RESP 20; TEMP 36.4; O2SAT 98
[2024-01-21 18:29] LABS: UTC Influenza A Antigen Negative (Negative); UTC Influenza B Antigen Negative (Negative)
--- NOTE | 2024-01-21 18:34 | EXP.UTC ---
Discharge Plan Disposition Patient Disposition: Home, Self-Care Condition: Good Prescriptions Prescriptions: New ondansetron 4 mg tablet,disintegrating 4 mg PO Q8H PRN (Reason: nausea and vomiting) Qty: 7 0RF No Action Fortify [place] Women Probiotic 50 billion cell capsule,delayed release(DR/EC) See Rx Instructions PO .COMPLEX Rx Instructions: orally daily; duloxetine 20 mg capsule,delayed release(DR/EC) 20 mg PO BID Qty: 60 2RF potassium citrate 15 mEq tablet extended release 30 meq PO DAILY 90 Days Qty: 180 1RF levocetirizine 5 mg tablet See Rx Instructions .ROUTE .COMPLEX Qty: 90 2RF Dose Instruction: TAKE 1 TABLET BY MOUTH EVERY DAY Rx Instructions: TAKE 1 TABLET BY MOUTH EVERY DAY meloxicam 7.5 mg tablet See Rx Instructions .ROUTE .COMPLEX Qty: 90 1RF Hold Instructions: Home Medication placed on hold at Doctor's office Dose Instruction: TAKE 1 TABLET BY MOUTH EVERY DAY FOR ARTHRITIS Rx Instructions: TAKE 1 TABLET BY MOUTH EVERY DAY FOR ARTHRITIS buspirone 7.5 mg tablet 7.5 mg PO BID 90 Days Qty: 180 1RF zafirlukast 20 mg tablet See Rx Instructions .ROUTE .COMPLEX Qty: 180 1RF Dose Instruction: TAKE 1 TABLET BY MOUTH TWICE A DAY FOR ALLERGIES Rx Instructions: TAKE 1 TABLET BY MOUTH TWICE A DAY FOR ALLERGIES phentermine [Adipex-P] 37.5 mg tablet 37.5 mg PO DAILY Qty: 30 3RF Rx Instructions: must administer 30 minutes before or 1-2 hours after breakfast pantoprazole 40 mg tablet,delayed release (DR/EC) 40 mg PO DAILY Qty: 90 3RF glycopyrrolate 1 mg tablet 1 mg PO BID 90 Days Qty: 180 0RF Rx Instructions: 2 tabs am, 1 tab pm propranolol 60 mg capsule,extended release 24 hr See Rx Instructions .ROUTE .COMPLEX Qty: 90 1RF Dose Instruction: TAKE 1 CAPSULE BY MOUTH EVERY DAY Rx Instructions: TAKE 1 CAPSULE BY MOUTH EVERY DAY lisinopril 10 mg tablet See Rx Instructions .ROUTE .COMPLEX Qty: 90 1RF Dose Instruction: TAKE 1 TABLET BY MOUTH EVERY DAY Rx Instructions: TAKE 1 TABLET BY MOUTH EVERY DAY ropinirole 0.25 mg tablet 0.25 mg PO HS Qty: 90 1RF Rx Instructions: administer 1-3 hours before bedtime metformin 500 mg tablet extended release 24 hr 1,000 mg PO DAILY 90 Days Qty: 180 1RF Multi Vitamin 9 mg iron/15 mL Liquid 1 ml PO DAILY famotidine 40 mg tablet 40 mg PO DAILY fluticasone propionate 50 mcg/actuation spray,suspension 2 spray NS DAILY norethindrone-e.estradiol-iron [.5/30 (28)] 1.5 mg-30 mcg (21)/75 mg (7) tablet 1 tab PO DAILY Referrals Follow up/Referrals: Joana Hanks APRN [Primary Care Provider] - See instructions Activity Restrictions/Add. Instructions Additional Instructions/Restrictions: No sign of a bacterial infection. Likely viral. Viruses can take 7-14 days to run their course. Nasal saline and bulb syringe or nose Arpita to remove nasal drainage to help with nasal congestion. Hard to eat, drink, sleep with nasal congestion so important to keep this cleaned out. Monitor temp. Tylenol or Motrin as needed for pain or fever Encourage fluids, water, Gatorade, Powerade, Pedialyte if /toddler/child Warm salt water gargles Warm fluids Sore throat lozenges Sleep elevated Humidifier/vaporizer Follow-up immediately for new or worsening symptoms or no noticeable improvement over the next 48-72 hours. Clinical Impressions Clinical Impression: Upper respiratory infection Qualifiers: URI type: unspecified viral URI Qualified Code(s): J06.9 - Acute upper respiratory infection, unspecified Nausea & vomiting Qualifiers: Vomiting type: unspecified Qualified Code(s): R11.2 - Nausea with vomiting, unspecified Instructions Patient Instructions: DI for Viral Upper Respiratory Infection -- Adult, Nausea and Vomiting-Adult Discharge ED Provider: Franky ([facility])Gwen [facility] HPI General Stated complaint: Vomiting, body ache BORGES fever Mode of Arrival: Ambulatory Source of Information: Patient Limitations: No Limitations Time Seen by Provider: 01/21/24 18:35 Description of Symptoms (Recalled from Triage Doc. by RN): PATIENT C/O VOMITING, BODY ACHES, HEADACHE AND NAUSEA SINCE LAST NIGHT HEENT Symptoms (Recalled from RN notes): Yes Resp Symptoms (Recalled from RN notes): No Skin Symptoms (Recalled from RN notes): No MS Symptoms (Recalled from RN notes): No Functional Status (Recalled from RN notes): WNL History of Present Illness Provider Complaint: 38 YR OLD FEMALE PRESENTS FOR C/O VOMITING, BODY ACHES, HEADACHE AND NAUSEA SINCE LAST NIGHT Related Data Home Medications Medication Instructions Recorded Confirmed fluticasone propionate 50 2 spray intranasal DAILY Allergy 08/15/22 01/18/24 mcg/actuation nasal symptoms spray,suspension norethindrone 1.5 mg-ethinyl 1 tab PO DAILY control 08/15/22 01/18/24 estradiol 30 mcg(21)/iron 75 mg(7) tablet (June FE 1.5/30 (28)) famotidine 40 mg tablet 40 mg PO DAILY Reflux/Acid reflux 02/07/23 01/18/24 multivitamin with minerals-iron 1 ml PO DAILY Supplement 02/07/23 01/18/24 fumarate 9 mg iron/15 mL oral liquid (Multi Vitamin) L.acid,devora-B.animal,bifid,infant See Rx Instructions PO .COMPLEX 12/13/23 01/18/24 50 billion cell capsule,delayed rel (Fortify [place] Women Probiotic) Previous Rx's Medication Instructions Recorded potassium citrate 15 mEq (1,620 30 meq PO DAILY Renal stones 90 08/04/22 mg) tablet,extended release days #180 tabs levocetirizine 5 mg tablet See Rx Instructions .Route 05/26/23 .COMPLEX #90 tabs meloxicam 7.5 mg tablet See Rx Instructions .Route 06/09/23 .COMPLEX #90 tabs buspirone 7.5 mg tablet 7.5 mg PO BID Anxiety 90 days #180 08/03/23 tabs zafirlukast 20 mg tablet See Rx Instructions .Route 08/31/23 .COMPLEX #180 tabs phentermine 37.5 mg tablet 37.5 mg PO DAILY #30 tabs 10/23/23 (Adipex-P) pantoprazole 40 mg tablet,delayed 40 mg PO DAILY GERD #90 tabs 11/01/23 release glycopyrrolate 1 mg tablet 1 mg PO BID Kidney stones 90 days 11/22/23 #180 tabs lisinopril 10 mg tablet See Rx Instructions .Route 12/19/23 .COMPLEX #90 tabs propranolol 60 mg capsule,24 See Rx Instructions .Route 12/19/23 hr,extended release .COMPLEX #90 caps duloxetine 20 mg capsule,delayed 20 mg PO BID #60 caps 01/09/24 release ropinirole 0.25 mg tablet 0.25 mg PO HS #90 tabs 01/16/24 metformin 500 mg tablet,extended 1,000 mg PO DAILY 90 days #180 tabs 01/20/24 release 24hr (osmotic) ondansetron 4 mg disintegrating 4 mg PO Q8H PRN nausea and 01/21/24 tablet vomiting #7 tabs Allergies Allergy/AdvReac Type Severity Reaction Status Date / Time Penicillins Allergy Severe Anaphylaxis Verified 01/18/24 15:33 cephalexin [From Keflex] Allergy Verified 01/18/24 15:33 Worker's Comp Is this a Worker's Comp case?: No [facility] Disclaimer: The information contained in this section may have been updated after the patient was seen, as this information can be updated by other users. 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) H/O lithotripsy H/O thyroidectomy History of bladder surgery History of extraction of renal calculus History of sinus surgery Status post thyroidectomy Family History , 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) Diabetes Mother Family history of cancer Coronary artery disease Mother Father Hyperlipidemia Mother Father Hypertension Mother Father 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 , 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) Smoking Status: Never smoker second hand exposure: No alcohol intake: never substance use type: denies use current occupational status: employed Travel in the last 8 weeks: None household members: family housing: house lives independently: No marital status: education level: master's degree caffeine: Yes special meron needs: No agree to transfusion: No do you feel safe at home: Yes victim of physical abuse: No victim of emotional abuse: No victim of sexual abuse: No would you like helpful sources: No ROS Obtained: Yes All systems reviewed & no additional complaints except as documented Constitutional Constitutional: Reports system reviewed and no additional complaints, except as documented, Reports as per HPI, Reports body ache and Reports fever(s) Eyes Eyes: Reports system reviewed and no additional complaints, except as documented ENT Ears, Nose, Mouth, and Throat: Reports system reviewed and no additional complaints, except as documented, Reports as per HPI and Reports nasal congestion Cardiovascular Cardiovascular: Reports system reviewed and no additional complaints, except as documented Respiratory Respiratory: Reports system reviewed and no additional complaints, except as documented Gastrointestinal Gastrointestingal: Reports system reviewed and no additional complaints, except as documented, as per HPI, nausea and vomiting Integumentary/Breasts Skin/Breast: Reports system reviewed and no additional complaints, except as documented Neurologic Neurologic: Reports system reviewed and no additional complaints, except as documented Endocrine Endocrine: Reports system reviewed and no additional complaints, except as documented Allergic/Immunologic Allergic/Immunologic: Reports system reviewed and no additional complaints, except as documented Physical Exam General General appearance: alert and in no apparent distress Head Head exam: atraumatic Eye Eye exam: Present normal appearance and PERRL ENT ENT exam: Present normal exam, normal oropharynx, mucous membranes moist and TM's normal bilaterally Respiratory Respiratory exam: Present normal lung sounds bilaterally Cardiovascular Cardiovascular exam: Present regular rate and normal rhythm Neurological Exam Neurological exam: Present alert and oriented X3 Skin Skin exam: Present warm and intact Medical Decision Making Medical Records Medical records reviewed: Yes I reviewed the patient's medical records. Lon Inquiry Pt receiving controlled substance: No Lon was queried for this patient: No Vital Signs: 01/21/24 17:55 01/21/24 18:29 Temperature 97.5 F L 97.5 F L Temperature Source Oral Pulse Rate 103 H Pulse Rate [Left Brachial] 103 H Respiratory Rate 20 20 Blood Pressure 109/77 L Blood Pressure [Left Arm] 109/77 L Blood Pressure Mean [Left Arm] 87 Blood Pressure Source [Left Arm] Automatic Cuff Blood Pressure Position [Left Arm] Sitting 02 Sat by Pulse Oximetry 98 Oxygen Delivery Method Room Air Lab Data Lab results reviewed: Yes I reviewed the patient's lab results. Lab Results 01/21/24 18:05: Influenza Type A Ag Negative, Influenza Type B Ag Negative, Strep Scn Rapid Clinic Negative Orders (Tests/Meds): ORDERS Category Date Time Status Strep Screen Confirmation Stat Micro 01/21/24 18:05 Received
[2024-01-21] MEDS: ONDANSETRON 4MG ODT 4 MG SL (18:36)
[2024-01-21 19:06] LABS: Adenovirus,PCR Not Detected (NotDetected); Coronavirus 19, PCR Not Detected (NotDetected); Coronavirus 229E Not Detected (NotDetected); Coronavirus NL63 Not Detected (NotDetected); Coronavirus OC43 Not Detected (NotDetected); Coronovirus HKU1,PCR Not Detected (NotDetected); Human Metapneumovirus Not Detected (NotDetected); Influenza A, PCR Not Detected (NotDetected); Influenza AH1, 2009 Not Detected (NotDetected); Influenza AH1, PCR Not Detected (NotDetected); Influenza AH3,PCR Not Detected (NotDetected); Influenza B, PCR Not Detected (NotDetected); Parainfluenza 1, PCR Not Detected (NotDetected); Parainfluenza 2, PCR Not Detected (NotDetected); Parainfluenza 3, PCR Not Detected (NotDetected); Parainfluenza 4, PCR Not Detected (NotDetected); Respiratory Syncytial Virus Not Detected (NotDetected); Rhinovirus/Enterovirus Not Detected (NotDetected)
== END 2024-01-21 19:04 | disposition home or self-care (01) ==
PROVIDERS: Emergency Provider Nurse Practitioner Family; PCP Nurse Practitioner Family
DX: R11.2 Nausea with vomiting, unspecified (principal); R51.9 Headache, unspecified; R50.9 Fever, unspecified; J06.9 Acute upper respiratory infection, unspecified; B34.9 Viral infection, unspecified
CPT/HCPCS: 87632; 87635; 87804; 87880; 99212; 99214; G0463

== ENCOUNTER 2024-02-05 13:35 | Emergency (ER) | payer BC, SELFPAY ==
[2024-02-05 14:10] VITALS: BP 134/82; PULSE 115; RESP 18; TEMP 36.8; O2SAT 96; BMI 36.3
--- NOTE | 2024-02-05 14:30 | EXP.UTC ---
Discharge Plan Disposition Patient Disposition: Home, Self-Care Condition: Good Prescriptions Prescriptions: New phenazopyridine [Pyridium] 200 mg tablet 200 mg PO Q8H 2 Days Qty: 6 0RF benzonatate 100 mg capsule 100 mg PO TIDP PRN (Reason: Cough) Qty: 30 0RF azithromycin [Zithromax] 250 mg tablet 250 mg PO UD DOSE PK Qty: 6 0RF Rx Instructions: Take two (2) tablets today, then one (1) tablet days #2 thru #5 nitrofurantoin monohyd/m-cryst [Macrobid] 100 mg Capsule 100 mg PO BID Qty: 10 0RF Rx Instructions: must administer with a meal/food No Action Fortify [place] [employer] Probiotic 50 billion cell capsule,delayed release(DR/EC) See Rx Instructions PO .COMPLEX Rx Instructions: orally daily; duloxetine 20 mg capsule,delayed release(DR/EC) 20 mg PO BID Qty: 60 2RF potassium citrate 15 mEq tablet extended release 30 meq PO DAILY 90 Days Qty: 180 1RF phentermine [Adipex-P] 37.5 mg tablet 37.5 mg PO DAILY Qty: 30 3RF Rx Instructions: must administer 30 minutes before or 1-2 hours after breakfast pantoprazole 40 mg tablet,delayed release (DR/EC) 40 mg PO DAILY Qty: 90 3RF glycopyrrolate 1 mg tablet 1 mg PO BID 90 Days Qty: 180 0RF Rx Instructions: 2 tabs am, 1 tab pm propranolol 60 mg capsule,extended release 24 hr See Rx Instructions .ROUTE .COMPLEX Qty: 90 1RF Dose Instruction: TAKE 1 CAPSULE BY MOUTH EVERY DAY Rx Instructions: TAKE 1 CAPSULE BY MOUTH EVERY DAY lisinopril 10 mg tablet See Rx Instructions .ROUTE .COMPLEX Qty: 90 1RF Dose Instruction: TAKE 1 TABLET BY MOUTH EVERY DAY Rx Instructions: TAKE 1 TABLET BY MOUTH EVERY DAY ropinirole 0.25 mg tablet 0.25 mg PO HS Qty: 90 1RF Rx Instructions: administer 1-3 hours before bedtime metformin 500 mg tablet extended release 24 hr 1,000 mg PO DAILY 90 Days Qty: 180 1RF buspirone 7.5 mg tablet 7.5 mg PO BID 90 Days Qty: 180 1RF levocetirizine 5 mg tablet See Rx Instructions .ROUTE .COMPLEX Qty: 90 2RF Dose Instruction: TAKE 1 TABLET BY MOUTH EVERY DAY Rx Instructions: TAKE 1 TABLET BY MOUTH EVERY DAY Multi Vitamin 9 mg iron/15 mL Liquid 1 ml PO DAILY famotidine 40 mg tablet 40 mg PO DAILY zafirlukast [Accolate] 20 mg tablet See Rx Instructions .ROUTE .COMPLEX Rx Instructions: TAKE 1 TABLET BY MOUTH TWICE A DAY FOR ALLERGIES fluticasone propionate 50 mcg/actuation spray,suspension 2 spray NS DAILY norethindrone-e.estradiol-iron [Junel FE .04/26 (28)] 1.5 mg-30 mcg (21)/75 mg (7) tablet 1 tab PO DAILY Referrals Follow up/Referrals: Tyrell Magana MD [Primary Care Provider] - See instructions Activity Restrictions/Add. Instructions Additional Instructions/Restrictions: Drink plenty of fluids. Take tylenol or ibuprofen for pain or fever. Take the medications as directed. Follow up with your regular doctor. GO TO THE ER FOR ANY WORSENING SYMPTOMS Throw your tooth brush away and get a new one. The pyridium will make your urine turn orange, this is an expected side effect. It will stain your clothes if it comes into contact with them. We will culture the urine. That will tell what bacteria is causing your infection and which antibiotics will treat it best. Sometimes the first antibiotic we prescribe turns out to not work against different bacteria. So, make sure you follow up within 3 days if you are not getting better. Clinical Impressions Clinical Impression: Strep throat, UTI (urinary tract infection) Stand Alone Forms Stand Alone Forms: Work/School Release Instructions Patient Instructions: DI for Strep Throat, DI for Urinary Tract Infection (UTI) Discharge ED Provider: Emeka Mathis [facility] General Stated complaint: st bond lower back pain frequent urination Time Seen by Provider: 02/05/24 14:30 History of Present Illness Provider Complaint: She states that for the past 2 days she has had sore throat, chills, malaise, low back pain, and dysuria. Related Data Home Medications Medication Instructions Recorded Confirmed fluticasone propionate 50 2 spray intranasal DAILY Allergy 08/15/22 02/05/24 mcg/actuation nasal symptoms spray,suspension norethindrone 1.5 mg-ethinyl 1 tab PO DAILY control 08/15/22 02/05/24 estradiol 30 mcg(21)/iron 75 mg(7) tablet (June FE 1.5/30 (28)) famotidine 40 mg tablet 40 mg PO DAILY Reflux/Acid reflux 02/07/23 02/05/24 multivitamin with minerals-iron 1 ml PO DAILY Supplement 02/07/23 02/05/24 fumarate 9 mg iron/15 mL oral liquid (Multi Vitamin) L.acid,devora-B.animal,bifid, See Rx Instructions PO .COMPLEX 12/13/23 02/05/24 50 billion cell capsule,delayed rel (Fortify [place] [employer] Probiotic) zafirlukast 20 mg tablet (Accolate) See Rx Instructions .Route .COMPLEX 02/05/24 02/05/24 Previous Rx's Medication Instructions Recorded potassium citrate 15 mEq (1,620 30 meq (2 x 15 mEq) PO DAILY Renal 08/04/22 mg) tablet,extended release stones 90 days #180 tabs phentermine 37.5 mg tablet 37.5 mg PO DAILY #30 tabs 10/23/23 (Adipex-P) pantoprazole 40 mg tablet,delayed 40 mg PO DAILY GERD #90 tabs 11/01/23 release glycopyrrolate 1 mg tablet 1 mg PO BID Kidney stones 90 days 11/22/23 #180 tabs lisinopril 10 mg tablet See Rx Instructions .Route 12/19/23 .COMPLEX #90 tabs propranolol 60 mg capsule,24 See Rx Instructions .Route 12/19/23 hr,extended release .COMPLEX #90 caps duloxetine 20 mg capsule,delayed 20 mg PO BID #60 caps 01/09/24 release ropinirole 0.25 mg tablet 0.25 mg PO HS #90 tabs 01/16/24 metformin 500 mg tablet,extended 1,000 mg (2 x 500 mg) PO DAILY 90 01/20/24 release 24hr (osmotic) days #180 tabs buspirone 7.5 mg tablet 7.5 mg PO BID Anxiety 90 days #180 02/01/24 tabs levocetirizine 5 mg tablet See Rx Instructions .Route 02/01/24 .COMPLEX #90 tabs azithromycin 250 mg tablet 250 mg PO UD DOSE PK #6 tabs 02/05/24 (Zithromax) benzonatate 100 mg capsule 100 mg PO TIDP PRN Cough #30 caps 02/05/24 nitrofurantoin 100 mg PO BID #10 caps 02/05/24 monohydrate/macrocrystals 100 mg capsule (Macrobid) phenazopyridine 200 mg tablet 200 mg PO Q8H 2 days #6 tabs 02/05/24 (Pyridium) Allergies Allergy/AdvReac Type Severity Reaction Status Date / Time Penicillins Allergy Severe Anaphylaxis Verified 02/05/24 14:37 cephalexin [From Keflex] Allergy Verified 02/05/24 14:37 [facility] Disclaimer: The information contained in this section may have been updated after the patient was seen, as this information can be updated by other users. 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) H/O lithotripsy H/O thyroidectomy History of bladder surgery History of extraction of renal calculus History of sinus surgery Status post thyroidectomy Family History , SERVICE TECH/WELDER) Diabetes Mother Family history of cancer Coronary artery disease Mother Father Hyperlipidemia Mother Father Hypertension Mother Father 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 Smoking Status: Never smoker second hand exposure: No alcohol intake: never substance use type: denies use current occupational status: employed Travel in the last 8 weeks: None household members: family housing: house lives independently: No marital status: education level: master's degree caffeine: Yes special meron needs: No agree to transfusion: No do you feel safe at home: Yes victim of physical abuse: No victim of emotional abuse: No victim of sexual abuse: No would you like helpful sources: No ROS Obtained: Yes All systems reviewed & no additional complaints except as documented Constitutional Constitutional: Reports chills and Reports fever(s) Eyes Eyes: Denies eye discharge ENT Ears, Nose, Mouth, and Throat: Reports as per HPI Cardiovascular Cardiovascular: Denies chest pain Respiratory Respiratory: Denies chest congestion and Reports cough Gastrointestinal Gastrointestingal: Reports nausea; Denies abdominal pain, constipation, cramping, diarrhea or vomiting Genitourinary Female Genitourinary: Reports as per HPI, Reports dysuria, Reports urinary frequency, Denies urinary incontinence, Reports urinary hesitancy and Reports urinary urgency Musculoskeletal Musculoskeletal: Denies arthralgias Integumentary/Breasts Skin/Breast: Denies rash Neurologic Neurologic: Denies paresthesias Physical Exam General General appearance: alert and in no apparent distress Head Head exam: atraumatic, normocephalic and normal inspection Eye Eye exam: Present normal appearance, PERRL and EOMI ENT ENT exam: Present mucous membranes moist and normal external ear exam Expanded ENT Exam TM/Canal exam: Bilateral TM: erythema and bulging Nose exam: Absent sinus tenderness Mouth exam: Present normal external inspection; Absent drooling Teeth exam: Present normal inspection Throat exam: Present tonsillar erythema, tonsillomegaly and tonsillar exudate Neck Neck exam: Present normal inspection, full ROM and trachea midline; Absent tenderness, meningismus or lymphadenopathy Chest Chest inspection: Present normal inspection and symmetric chest wall rise; Absent tenderness Respiratory Respiratory exam: Present normal lung sounds bilaterally; Absent respiratory distress, wheezes or stridor Cardiovascular Cardiovascular exam: Present regular rate and normal rhythm; Absent systolic murmur or diastolic murmur Abdominal Exam Abdominal exam: Present soft and normal bowel sounds; Absent distention, tenderness, guarding, rebound or rigidity Extremities Exam Extremities exam: Present normal inspection and normal capillary refill; Absent calf tenderness Back Exam Back exam: Present normal inspection and full ROM; Absent tenderness, CVA tenderness (R) or CVA tenderness (L) Neurological Exam Neurological exam: Present alert, oriented X3 and CN II-XII intact Psychiatric Psychiatric exam: Present normal affect and normal mood Skin Skin exam: Present warm, dry, intact and normal color Medical Decision Making Medical Records Medical records reviewed: No I reviewed the patient's medical records. Lon Inquiry Pt receiving controlled substance: No Lab Data Lab results reviewed: Yes I reviewed the patient's lab results.
[2024-02-05 14:42] LABS: UTC Strep Screen (Rapid) Positive (Negative)
[2024-02-05 14:43] LABS: Apearance,Urine Clear (Clear); Color,Urine Dark Yellow (Yellow); Protein,Urine Negative (Negative)
[2024-02-05 14:44] LABS: Bilirubin,Urine Negative (Negative); Blood, Urine Negative (Negative); Glucose,Urine (UA) Negative (Negative); Ketones,Urine Negative (Negative); UTC Leukocyte Esterase,Urine Trace (Negative); UTC Nitrate,Urine Negative (Negative); Urobilinogen,Urine 0.2 EU/dl (0.2)
[2024-02-05 15:13] VITALS: BP 134/82; PULSE 115; RESP 18; TEMP 36.8; O2SAT 96
== END 2024-02-05 15:13 | disposition home or self-care (01) ==
PROVIDERS: Emergency Provider Nurse Practitioner Family; PCP Family Medicine
DX: J02.0 Streptococcal pharyngitis (principal); N39.0 Urinary tract infection, site not specified; M54.50 Low back pain, unspecified; R35.0 Frequency of micturition; R68.83 Chills (without fever); R53.81 Other malaise; R30.0 Dysuria; F41.9 Anxiety disorder, unspecified; F32.A Depression, unspecified; K21.9 Gastro-esophageal reflux disease without esophagitis; E04.1 Nontoxic single thyroid nodule
CPT/HCPCS: 81003; 87086; 87880; 99212; 99214; G0463

== ENCOUNTER 2024-03-28 16:20 | Emergency (ER) | payer BC, SELFPAY ==
[2024-03-28 17:40] VITALS: BP 137/86; PULSE 85; RESP 18; TEMP 36.8; O2SAT 100; BMI 37.4
--- NOTE | 2024-03-28 17:54 | ED_ITS ---
Discharge Plan Disposition Patient Disposition: Home, Self-Care Condition: Good Prescriptions Prescriptions: New levofloxacin 500 mg tablet 500 mg PO DAILY Qty: 5 0RF No Action Fortify [place] [facility] Probiotic 50 billion cell capsule,delayed release(DR/EC) See Rx Instructions PO .COMPLEX Rx Instructions: orally daily; Zyrtec 10 mg capsule 10 mg PO DAILY PRN potassium citrate 15 mEq tablet extended release 30 meq PO DAILY 90 Days Qty: 180 1RF pantoprazole 40 mg tablet,delayed release (DR/EC) 40 mg PO DAILY Qty: 90 3RF propranolol 60 mg capsule,extended release 24 hr See Rx Instructions .ROUTE .COMPLEX Qty: 90 1RF Dose Instruction: TAKE 1 CAPSULE BY MOUTH EVERY DAY Rx Instructions: TAKE 1 CAPSULE BY MOUTH EVERY DAY lisinopril 10 mg tablet See Rx Instructions .ROUTE .COMPLEX Qty: 90 1RF Dose Instruction: TAKE 1 TABLET BY MOUTH EVERY DAY Rx Instructions: TAKE 1 TABLET BY MOUTH EVERY DAY ropinirole 0.25 mg tablet 0.25 mg PO HS Qty: 90 1RF Rx Instructions: administer 1-3 hours before bedtime metformin 500 mg tablet extended release 24 hr 1,000 mg PO DAILY 90 Days Qty: 180 1RF buspirone 7.5 mg tablet 7.5 mg PO BID 90 Days Qty: 180 1RF phentermine [Adipex-P] 37.5 mg tablet 37.5 mg PO DAILY Qty: 30 3RF Rx Instructions: must administer 30 minutes before or 1-2 hours after breakfast meloxicam 7.5 mg tablet 7.5 mg PO DAILY 90 Days Qty: 90 1RF duloxetine 20 mg capsule,delayed release(DR/EC) 20 mg PO BID 90 Days Qty: 180 1RF oxybutynin chloride 5 mg tablet extended release 24hr 5 mg PO DAILY Qty: 30 2RF Multi Vitamin 9 mg iron/15 mL Liquid 1 ml PO DAILY famotidine 40 mg tablet 40 mg PO DAILY zafirlukast [Accolate] 20 mg tablet See Rx Instructions .ROUTE .COMPLEX Rx Instructions: TAKE 1 TABLET BY MOUTH TWICE A DAY FOR ALLERGIES fluticasone propionate 50 mcg/actuation spray,suspension 2 spray NS DAILY Referrals Follow up/Referrals: Tyrell Magana MD [Primary Care Provider] - See instructions Activity Restrictions/Add. Instructions Additional Instructions/Restrictions: Increase fluids, water and not soda or tea. Can drink cranberry juice or cr anberry extract. Wipe front to back Wear cotton underwear Empty bladder after intercourse Start antibiotics immediately and make sure you take the full course although you may start to see improvement over the next 48 hours. You can eat yogurt or take probiotics to decrease diarrhea or yeast infection caused by the antibiotic Be sure to follow-up anytime for new or worsening symptoms in 48 hours for wound urine culture results be sure to let you PCP no recent urine for culture so they can request records and ensure that you have appropriate antibiotic if you are not getting better or getting worse. If symptoms worsen or do not improve return or be seen in the ER. Follow-up with primary care this week. Clinical Impressions Clinical Impression: UTI (urinary tract infection) Instructions Patient Instructions: DI for Urinary Tract Infection (UTI) Discharge ED [facility]: [facility] HPI General Stated complaint: possible uti Mode of Arrival: Ambulatory Source of Information: Patient Limitations: No Limitations Time Seen by Provider: 03/28/24 17:54 Description of Symptoms (Recalled from Triage Doc. by RN): Pt's symptoms are bladder prssure, flank pain, and right ear pain. HEENT Symptoms (Recalled from RN notes): Yes Resp Symptoms (Recalled from RN notes): No Skin Symptoms (Recalled from RN notes): No MS Symptoms (Recalled from RN notes): No Functional Status (Recalled from RN notes): n/a History of Present Illness Provider Complaint: 38 yr old female presents for c/o bladder pressure, flank pain, and right ear pain. Related Data Home Medications Medication Instructions Recorded Confirmed fluticasone propionate 50 2 spray intranasal DAILY Allergy 08/15/22 02/28/24 mcg/actuation nasal symptoms spray,suspension famotidine 40 mg tablet 40 mg PO DAILY Reflux/Acid reflux 02/07/23 02/28/24 multivitamin with minerals-iron 1 ml PO DAILY Supplement 02/07/23 02/28/24 fumarate 9 mg iron/15 mL oral liquid (Multi Vitamin) L.acid,devora-B.animal,bifid,infant See Rx Instructions PO .COMPLEX 12/13/23 02/28/24 50 billion cell capsule,delayed rel ([employer] [place] [facility] Probiotic) zafirlukast 20 mg tablet (Accolate) See Rx Instructions .Route .COMPLEX 02/05/24 02/28/24 cetirizine 10 mg capsule (Zyrtec) 10 mg PO DAILY PRN 03/12/24 03/12/24 Previous Rx's Medication Instructions Recorded potassium citrate 15 mEq (1,620 30 meq (2 x 15 mEq) PO DAILY Renal 08/04/22 mg) tablet,extended release stones 90 days #180 tabs pantoprazole 40 mg tablet,delayed 40 mg PO DAILY GERD #90 tabs 11/01/23 release lisinopril 10 mg tablet See Rx Instructions .Route 12/19/23 .COMPLEX #90 tabs propranolol 60 mg capsule,24 See Rx Instructions .Route 12/19/23 hr,extended release .COMPLEX #90 caps ropinirole 0.25 mg tablet 0.25 mg PO HS #90 tabs 01/16/24 metformin 500 mg tablet,extended 1,000 mg (2 x 500 mg) PO DAILY 90 01/20/24 release 24hr (osmotic) days #180 tabs buspirone 7.5 mg tablet 7.5 mg PO BID Anxiety 90 days #180 02/01/24 tabs phentermine 37.5 mg tablet 37.5 mg PO DAILY #30 tabs 02/20/24 (Adipex-P) duloxetine 20 mg capsule,delayed 20 mg PO BID 90 days #180 caps 02/27/24 release meloxicam 7.5 mg tablet 7.5 mg PO DAILY 90 days #90 tabs 02/27/24 oxybutynin chloride 5 mg 5 mg PO DAILY hyperhidrosis #30 03/26/24 tablet,extended release 24 hr tabs levofloxacin 500 mg tablet 500 mg PO DAILY #5 tabs 03/28/24 Allergies Allergy/AdvReac Type Severity Reaction Status Date / Time Penicillins Allergy Severe Anaphylaxis Verified 03/12/24 15:56 cephalexin [From Keflex] Allergy Verified 03/12/24 15:56 Worker's Comp Is this a Worker's Comp case?: No [facility] Disclaimer: The information contained in this section may have been updated after the patient was seen, as this information can be updated by other users. 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 , [employer]) Hoarseness Thyroid Nodule Deviated nasal septum Chronic throat clearing Nasal drainage Allergic rhinitis Anxiety and depression Gastroesophageal reflux disease Surgical History , [employer]) H/O thyroidectomy Status post thyroidectomy History of extraction of renal calculus History of bladder surgery H/O lithotripsy History of sinus surgery Family History , [employer] HEL[employer]) Diabetes Mother Family history of cancer Coronary artery disease Mother Father Hyperlipidemia Mother Father Hypertension Mother Father 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 , [employer]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) Smoking Status: Never smoker second hand exposure: No alcohol intake: never substance use type: denies use current occupational status: employed Travel in the last 8 weeks: None household members: family housing: house lives independently: No marital status: education level: master's degree caffeine: Yes special meron needs: No agree to transfusion: No do you feel safe at home: Yes victim of physical abuse: No victim of emotional abuse: No victim of sexual abuse: No would you like helpful sources: No ROS Obtained: Yes All systems reviewed & no additional complaints except as documented Constitutional Constitutional: Reports system reviewed and no additional complaints, except as documented Eyes Eyes: Reports system reviewed and no additional complaints, except as documented ENT Ears, Nose, Mouth, and Throat: Reports system reviewed and no additional complaints, except as documented, Reports as per HPI and Reports otalgia Cardiovascular Cardiovascular: Reports system reviewed and no additional complaints, except as documented Respiratory Respiratory: Reports system reviewed and no additional complaints, except as documented Genitourinary Female Genitourinary: Reports system reviewed and no additional complaints, ex cept as documented, Reports as per HPI, Reports dysuria, Reports flank pain, Reports urinary frequency, Reports urinary hesitancy and Reports urinary urgency Musculoskeletal Musculoskeletal: Reports system reviewed and no additional complaints, except as documented Neurologic Neurologic: Reports system reviewed and no additional complaints, except as documented Endocrine Endocrine: Reports system reviewed and no additional complaints, except as docu mented Hematologic/Lymphatic Henatologic/Lymphatic: Reports system reviewed and no additional complaints, except as documented Allergic/Immunologic Allergic/Immunologic: Reports system reviewed and no additional complaints, except as documented Physical Exam General General appearance: alert and in no apparent distress Head Head exam: atraumatic Eye Eye exam: Present normal appearance and PERRL ENT ENT exam: Present normal exam, normal oropharynx, mucous membranes moist and T M's normal bilaterally Respiratory Respiratory exam: Present normal lung sounds bilaterally Cardiovascular Cardiovascular exam: Present regular rate and normal rhythm Neurological Exam Neurological exam: Present alert and oriented X3 Psychiatric Psychiatric exam: Present normal affect Skin Skin exam: Present warm and intact Medical Decision Making Medical Records Medical records reviewed: Yes I reviewed the patient's medical records. Lon Inquiry Pt receiving controlled substance: No Lon was queried for this patient: No Vital Signs: 03/28/24 17:40 Temperature 98.3 F Temperature Source Oral Pulse Rate [Right Radial] 85 Respiratory Rate 18 Blood Pressure [Right Arm] 137/86 Blood Pressure Mean [Right Arm] 103 Blood Pressure Source [Right Arm] Automatic Cuff Blood Pressure Position [Right Arm] Sitting 02 Sat by Pulse Oximetry 100 Oxygen Delivery Method Room Air Lab Data Lab results reviewed: Yes I reviewed the patient's lab results.
[2024-03-28 18:07] LABS: Apearance,Urine Clear (Clear); Color,Urine Yellow (Yellow); Glucose,Urine (UA) Negative (Negative); Protein,Urine Negative (Negative); Specific Gravity, Urine 1.025 (1.005-1.030)
[2024-03-28 18:08] LABS: Bilirubin,Urine Negative (Negative); Blood, Urine Trace (Negative); Ketones,Urine Negative (Negative); UTC Leukocyte Esterase,Urine Trace (Negative); UTC Nitrate,Urine Negative (Negative); Urobilinogen,Urine 0.2 EU/dl (0.2)
--- NOTE | 2024-03-28 18:20 | PC.NURSE ---
Sent urine to lab via tube system
[2024-03-28 18:21] VITALS: BP 137/86; PULSE 85; RESP 18; TEMP 36.8; O2SAT 100
== END 2024-03-28 18:21 | disposition home or self-care (01) ==
PROVIDERS: Emergency Provider Nurse Practitioner Family; PCP Family Medicine
DX: N39.0 Urinary tract infection, site not specified (principal); B96.89 Other specified bacterial agents as the cause of diseases classified elsewhere; R10.30 Lower abdominal pain, unspecified
CPT/HCPCS: 81003; 87086; 99212; 99214; G0463

== ENCOUNTER 2024-04-25 09:31 | Outpatient (CLI) | payer BC, SELFPAY ==
[2024-04-25 16:34] LABS: Basophils # 0.1 K/mm3 (0-0.2); Basophils % 0.7 % (0.1-2.0); Eosinophils # 0.2 K/mm3 (0.0-0.4); Eosinophils % 2.4 % (0.1-12.0); Hematocrit 41.8 % (37.0-47.0); Hemoglobin 13.1 g/dL (12.2-16.2); Lymphocytes # 2.3 K/mm3 (0.7-4.5); Lymphocytes % 31.7 % (10-50); Mean Corpuscular HGB Conc 31.3 g/dL (31.8-35.4); Mean Corpuscular Hemoglobin 28.9 pg (27.0-31.2); Mean Corpuscular Volume 92.6 fl (81-99); Mean Platelet Volume 8.9 fl (7.4-10.4); Monocytes # 0.2 K/mm3 (0.1-1.0); Monocytes % 3.4 % (1.7-9.3); Neutrophils # 4.4 K/mm3 (1.8-7.8); Neutrophils % 61.8 % (37.0-80.0); Platelet Count 358 K/mm3 (142-424); Red Blood Count 4.51 M/mm3 (4.20-5.40); Red Cell Distribution Width 14.4 % (11.5-17.5); White Blood Count 7.1 K/mm3 (4.8-10.8)
[2024-04-25 16:59] LABS: Alanine Aminotransferase 24 U/L (12-78); Albumin Level 3.7 g/dl (3.5-5.0); Albumin/Globulin Ratio 1.4 (1.1-1.8); Alkaline Phosphatase 55 U/L (38-126); Aspartate Amino Transferase 28 U/L (14-36); Bilirubin,Total 0.3 mg/dl (0.2-1.3); Blood Urea Nitrogen 8 mg/dl (7-17); Calcium 9.2 mg/dl (8.4-10.2); Carbon Dioxide 22 mmol/L (22.0-30.0); Chloride 104 mmol/L (98-107); Chol/HDL Ratio 4.1 (1-3.5); Cholesterol 175 mg/dl (140-200); Estimated Glomerular Filt Rate 111 ml/min (>60); GFR (African American) 135 ML/MIN (>60); Globulin 2.7 g/dL (1.3-3.2); Glucose 74 mg/dl (74-100); HDL Cholesterol 43 mg/dl (40-60); Sodium 139 mmol/L (136-145); Total Protein,Serum 6.4 g/dl (6.3-8.2); Triglycerides 145 mg/dl (30-150); VLDL Cholesterol 29 mg/dL (0-40)
[2024-04-25 17:10] LABS: Direct LDL Cholesterol 107.04 mg/dL (100-129)
[2024-04-25 17:11] LABS: Free Thyroxine Index 2.5 ug/dL (5.93-13.13); T4 (Thyroxine) 9.9 ug/dl (5.53-11.0); Triiodothryronine (T3) Uptake 25 % (23.5-40.5)
[2024-04-25 17:12] LABS: 25-OH Vitamin D, Total 28.9 ng/mL (30-100)
[2024-04-25 17:25] LABS: Thyroid Stimulating Hormone 1.43 uIU/mL (0.465-4.68)
[2024-04-25 20:10] LABS: Hemoglobin A1C 5.5 % (4.0-6.0)
[2024-04-27 12:25] LABS: LH 2.5 mIU/mL (.); Progesterone 0.1 ng/mL (.)
[2024-05-03 17:35] LABS: Estrogen 43 pg/mL (.)
== END 2024-04-25 23:59 | disposition home or self-care (01) ==
LOC: LAB.DROPOF 04-27 09:32
PROVIDERS: PCP Nurse Practitioner Family; Visit Provider Nurse Practitioner Family
DX: I10 Essential (primary) hypertension (principal); E89.0 Postprocedural hypothyroidism; R73.03 Prediabetes; E55.9 Vitamin D deficiency, unspecified; Z68.39 Body mass index [BMI] 39.0-39.9, adult; Z79.84 Long term (current) use of oral hypoglycemic drugs
CPT/HCPCS: 80053; 80061; 82306; 82672; 83001; 83002; 83036; 84144; 84436; 84443; 84479; 85025

== ENCOUNTER 2024-06-13 09:31 | Outpatient (CLI) | payer BC, SELFPAY ==
--- NOTE | 2024-06-13 09:34 | MM_ITS ---
PROCEDURE INFORMATION: Exam: MG Bilateral Screening 3D Mammography Exam date and time: 06/13/2024 9:20 AM Age: 39 years old Clinical indication: Screening mammogram TECHNIQUE: Imaging protocol: Bilateral Screening tomosynthesis and 2D mammography including computer-aided detection (CAD) when performed. COMPARISON: No relevant prior studies available. FINDINGS: MAMMOGRAPHY: Breast composition: There are scattered areas of fibroglandular density. Mass: None. Architectural distortion: No new or suspicious architectural distortion. Calcifications: No new or suspicious calcifications are present Asymmetric density: No new or suspicious asymmetric density is present Skin thickening: None. Axillary adenopathy: None. IMPRESSION: No mammographic evidence of malignancy. Recommend annual screening mammography unless otherwise clinically indicated. ASSESSMENT: BI-RADS category 1: Negative.
== END 2024-06-13 23:59 | disposition home or self-care (01) ==
LOC: RAD 09:32
PROVIDERS: PCP Family Medicine; Visit Provider Physician Assistant
DX: Z12.31 Encounter for screening mammogram for malignant neoplasm of breast (principal)
CPT/HCPCS: 77063; 77067

== ENCOUNTER 2024-06-26 12:45 | Outpatient (CLI) | payer BC, SELFPAY ==
--- NOTE | 2024-06-26 12:45 | US_ITS ---
FINAL REPORT CLINICAL HISTORY: thyroid nodules COMPARISON: 01/10/2024 FINDINGS: THYROID ULTRASOUND: The right thyroid lobe measures 5 x 1.4 x 1.9 cm in size. 3 nodules are once again identified in the right lobe of the thyroid gland. Nodule A measures 4 mm in diameter, may contain punctate calcifications, and is slightly smaller than seen on the prior ultrasound. Nodule B measures 3 mm in size, and is stable in appearance. Nodule C measures 6 mm in greatest diameter, is also stable, and may contain punctate calcifications. No new nodules or masses are identified when compared with the prior exam. IMPRESSION: 3 nodules in the right lobe of the thyroid are either stable or slightly smaller in size. Would recommend 1 year follow-up thyroid ultrasound if clinically indicated. Reviewed, Interpreted and Dictated by Livan Rosales MD Transcribed by Eula Alexander Authenticated and [facility]
== END 2024-06-26 23:59 | disposition home or self-care (01) ==
LOC: RAD 12:45
PROVIDERS: PCP Family Medicine; Visit Provider Student in an Organized Health Care Education/Training Program
DX: E04.1 Nontoxic single thyroid nodule (principal); E89.0 Postprocedural hypothyroidism
CPT/HCPCS: 76536

== ENCOUNTER 2024-07-05 09:37 | Outpatient (CLI) | payer BC, SELFPAY | END 2024-07-05 23:59 | disposition home or self-care (01) | LOC: LAB.DROPOF 07-06 09:38 | PROVIDERS: PCP Nurse Practitioner Family; Visit Provider Nurse Practitioner Family | DX: N39.0 Urinary tract infection, site not specified (principal) | CPT/HCPCS: 87086 ==

== ENCOUNTER 2024-10-22 09:06 | Emergency (ER) | payer OTHER, BC, SELFPAY ==
--- NOTE | 2024-10-22 09:16 | EXP.UTC ---
Discharge Plan Prescriptions Prescriptions: New ibuprofen [IBU] 800 mg tablet 800 mg PO Q8HP PRN (Reason: Moderate Pain) Qty: 30 0RF No Action Fortify Pen Mar Women Probiotic 50 billion cell capsule,delayed release(DR/EC) See Rx Instructions PO .COMPLEX Rx Instructions: orally daily; Zyrtec 10 mg capsule 10 mg PO DAILY PRN tamsulosin 0.4 mg capsule PO Patient Comments: TAKE 1 CAPSULE BY MOUTH EVERY DAY metformin 500 mg tablet extended release 24 hr 1,000 mg PO ONCE Patient Comments: TAKE 2 TABLETS BY MOUTH EVERY DAY norethindrone-e.estradiol-iron [5/ (28)] 1.5 mg-30 mcg (21)/75 mg (7) tablet 1 tab PO DAILY Patient Comments: TAKE 1 TABLET BY MOUTH EVERY DAY potassium citrate 15 mEq tablet extended release 30 meq PO DAILY 90 Days Qty: 180 1RF ropinirole 0.5 mg tablet 0.5 mg PO HS Qty: 90 2RF Rx Instructions: administer 1-3 hours before bedtime buspirone 7.5 mg tablet 7.5 mg PO BID 90 Days Qty: 180 1RF meloxicam 7.5 mg tablet 7.5 mg PO DAILY 90 Days Qty: 90 0RF duloxetine 30 mg capsule,delayed release(DR/EC) 30 mg PO BID 90 Days Qty: 180 1RF zafirlukast 20 mg tablet See Rx Instructions .ROUTE .COMPLEX Qty: 180 1RF Dose Instruction: TAKE 1 TABLET BY MOUTH TWICE A DAY FOR ALLERGIES Rx Instructions: TAKE 1 TABLET BY MOUTH TWICE A DAY FOR ALLERGIES propranolol 60 mg capsule,extended release 24 hr See Rx Instructions .ROUTE .COMPLEX Qty: 90 0RF Dose Instruction: TAKE 1 CAPSULE BY MOUTH EVERY DAY Rx Instructions: TAKE 1 CAPSULE BY MOUTH EVERY DAY pantoprazole 40 mg tablet,delayed release (DR/EC) See Rx Instructions .ROUTE .COMPLEX Qty: 90 3RF Dose Instruction: TAKE 1 TABLET BY MOUTH EVERY DAY FOR GERD Rx Instructions: TAKE 1 TABLET BY MOUTH EVERY DAY FOR GERD lisinopril 10 mg tablet See Rx Instructions .ROUTE .COMPLEX Qty: 90 1RF Dose Instruction: TAKE 1 TABLET BY MOUTH EVERY DAY Rx Instructions: TAKE 1 TABLET BY MOUTH EVERY DAY glycopyrrolate 1 mg tablet 1 mg PO BID 90 Days Qty: 270 1RF Rx Instructions: 2 tabs am, 1 tab pm Multi Vitamin 9 mg iron/15 mL Liquid 1 ml PO DAILY famotidine 40 mg tablet 40 mg PO DAILY fluticasone propionate 50 mcg/actuation spray,suspension 2 spray NS DAILY Referrals Follow up/Referrals: Tyrell Magana MD [Primary Care Provider] - See instructions Activity Restrictions/Add. Instructions Additional Instructions/Restrictions: Rest the extremity, apply ice for 15 minutes as tolerated three or four times per day, Wear the carson wrap for compression, Elevate the extremity as tolerated while you are resting. Take ibuprofen for pain. I sent in a prescription to your pharmacy. Follow up with Dr. Gleason (podiatry). I put in a referral but you need to call her office and schedule an appointment. Follow up with your regular doctor. GO TO THE ER FOR ANY WORSENING SYMPTOMS Clinical Impressions Clinical Impression: Sprain of ankle, right, Right foot sprain Instructions Patient Instructions: DI for Ankle Sprain, Ibuprofen, DI for Foot Sprain, How to Apply an Elastic Wrap on Ankle Print Language Print Language: Gibraltarian Discharge ED Provider: Emeka Mathis [facility] General Stated complaint: WC tripped 10/18/24 pain right foot Time Seen by Provider: 10/22/24 09:16 History of Present Illness Provider Complaint: She states that 4 days ago she twisted her right foot and ankle. Since then she has had pain and swelling of her right ankle and foot. She denies any other injury or complaints. Related Data Home Medications ?Medication ?Instructions ?Recorded ?Confirmed fluticasone propionate 50 2 spray intranasal DAILY Allergy 08/15/22 09/03/24 mcg/actuation nasal symptoms spray,suspension famotidine 40 mg tablet 40 mg PO DAILY Reflux/Acid reflux 02/07/23 09/03/24 multivitamin with minerals-iron 1 ml PO DAILY Supplement 02/07/23 09/03/24 fumarate 9 mg iron/15 mL oral liquid (Multi Vitamin) L.acid,devora-B.animal,bifid,infant See Rx Instructions PO .COMPLEX 12/13/23 09/03/24 50 billion cell capsule,delayed rel (Fortify Pen Mar Women Probiotic) cetirizine 10 mg capsule (Zyrtec) 10 mg PO DAILY PRN 03/12/24 09/03/24 metformin 500 mg tablet,extended 1,000 mg PO ONCE 06/27/24 09/03/24 release 24 hr norethindrone 1.5 mg-ethinyl 1 tab PO DAILY 06/27/24 09/03/24 estradiol 30 mcg(21)/iron 75 mg(7) tablet (Junel FE 1.530 (28)) tamsulosin 0.4 mg capsule mg PO 06/27/24 09/03/24 Previous Rx's ?Medication ?Instructions ?Recorded potassium citrate 15 mEq (1,620 30 meq (2 x 15 mEq) PO DAILY Renal 08/04/22 mg) tablet,extended release stones 90 days #180 tabs buspirone 7.5 mg tablet 7.5 mg PO BID Anxiety 90 days #180 02/01/24 tabs meloxicam 7.5 mg tablet 7.5 mg PO DAILY 90 days #90 tabs 06/09/24 ropinirole 0.5 mg tablet 0.5 mg PO HS #90 tabs 06/12/24 duloxetine 30 mg capsule,delayed 30 mg PO BID 90 days #180 caps 07/09/24 release zafirlukast 20 mg tablet See Rx Instructions .Route 07/31/24 .COMPLEX #180 tabs propranolol 60 mg capsule,24 See Rx Instructions .Route 09/07/24 hr,extended release .COMPLEX #90 caps lisinopril 10 mg tablet See Rx Instructions .Route 09/11/24 .COMPLEX #90 tabs pantoprazole 40 mg tablet,delayed See Rx Instructions .Route 09/11/24 release .COMPLEX #90 tabs glycopyrrolate 1 mg tablet 1 mg PO BID Kidney stones 90 days 10/09/24 #270 tabs ibuprofen 800 mg tablet (IBU) 800 mg PO Q8HP PRN Moderate Pain 10/22/24 #30 tabs Allergies Allergy/AdvReac Type Severity Reaction Status Date / Time Penicillins Allergy Severe Anaphylaxis Verified 09/03/24 13:13 cephalexin (From Keflex) Allergy Vomiting Verified 10/22/24 09:46 [facility] Disclaimer: The information contained in this section may have been updated after the patient was seen, as this information can be updated by other users. 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 Multiple thyroid nodules Hoarseness Thyroid Nodule Deviated nasal septum Chronic throat clearing Nasal drainage Allergic rhinitis Anxiety and depression Gastroesophageal reflux disease Surgical History History of partial thyroidectomy done 02/09/23; left sided H/O thyroidectomy Status post thyroidectomy History of extraction of renal calculus History of bladder surgery H/O lithotripsy History of sinus surgery Family History Mother Diabetes Coronary artery disease Hyperlipidemia Hypertension Father Coronary artery disease Hyperlipidemia Hypertension Other Family history of cancer 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 Smoking Status: Never smoker second hand exposure: No alcohol intake: never substance use type: denies use current occupational status: employed household members: family housing: house lives independently: No marital status: education level: master's degree caffeine: Yes special meron needs: No agree to transfusion: No do you feel safe at home: Yes victim of physical abuse: No victim of emotional abuse: No victim of sexual abuse: No would you like helpful sources: No ROS Obtained: Yes All systems reviewed & no additional complaints except as documented Constitutional Constitutional: Denies chills and Denies fever(s) Eyes Eyes: Denies eye discharge ENT Ears, Nose, Mouth, and Throat: Denies dizziness, Denies otalgia and Denies sore throat Cardiovascular Cardiovascular: Denies chest pain Respiratory Respiratory: Denies shortness of breath, Denies chest congestion, Denies cough, Denies stridor and Denies wheezing Gastrointestinal Gastrointestingal: Denies nausea or vomiting Musculoskeletal Musculoskeletal: Reports system reviewed and no additional complaints, except as documented, Reports as per HPI and Denies numbness Integumentary/Breasts Skin/Breast: Denies redness, Denies rash and Denies wounds Neurologic Neurologic: Denies dizziness, Denies numbness and Denies paresthesias Allergic/Immunologic Allergic/Immunologic: Denies wheezing Physical Exam General General appearance: alert and in no apparent distress Head Head exam: atraumatic, normocephalic and normal inspection Eye Eye exam: Present normal appearance, PERRL and EOMI ENT ENT exam: Present normal exam, normal oropharynx, mucous membranes moist, TM's normal bilaterally and normal external ear exam Neck Neck exam: Present normal inspection, full ROM and trachea midline; Absent meningismus or lymphadenopathy Chest Chest inspection: Present normal inspection and symmetric chest wall rise; Absent tenderness Respiratory Respiratory exam: Present normal lung sounds bilaterally; Absent respiratory distress Cardiovascular Cardiovascular exam: Present regular rate and normal rhythm; Absent JVD Abdominal Exam Abdominal exam: Present soft and normal bowel sounds; Absent distention, tenderness or guarding Extremities Exam Extremities exam: Present normal capillary refill; Absent calf tenderness Expanded Lower Extremity Exam Right: Knee exam: Present normal inspection, full ROM and knee extension intact; Absent tenderness Lower leg exam: Present normal inspection, full ROM and Achilles tendon intact; Absent tenderness or Homans' sign Ankle exam: Present tenderness and swelling; Absent full ROM, abrasion, laceration, ecchymosis, deformity, crepitus, dislocation, erythema, tenderness over talofibular lig or anterior draw sign Foot/toe exam: Present tenderness and swelling; Absent full ROM, abrasion, laceration, ecchymosis, deformity, crepitus, dislocation, erythema, amputation, puncture wound, foreign body, calcaneal tenderness, tenderness at base of 5th metatarsal, nail avulsion or subungual hematoma Neurovascular/Tendon exam: Present normal capillary refill, normal 2-point discrimination and normal fine/light touch; Absent pulse deficit, motor deficit, sensory deficit, tendon deficit, extremity cold to touch or pallor Gait: observed and normal Back Exam Back exam: Present normal inspection; Absent tenderness Neurological Exam Neurological exam: Present alert and oriented X3 Psychiatric Psychiatric exam: Present normal affect and normal mood Skin Skin exam: Present warm, dry, intact and normal color Lymphatic Lymphatic Findings: no adenopathy Medical Decision Making Medical Records Medical records reviewed: No I reviewed the patient's medical records. Screening: Per USPSTF and CDC recommendations, given the prevalence of disease in our region, it is our hospital?s policy to screen for HIV and viral Hepatitis for all patients aged 18 and over and those with ongoing risk factors. Lon Inquiry Pt receiving controlled substance: No Orders (Tests/Meds): ORDERS Category Date Time Status Ankle XR -Right minimum 3 Views [XR ankle RT min 3V] Exams 10/22/24 09:15 Ordered Stat XR foot RT min 3V Stat Exams 10/22/24 09:15 Ordered Radiology Data #1: Image(s): Ankle Image Reviewed: Yes I reviewed the patient's radiology image and Yes I have reviewed radiologist's interpretation Preliminary Findings: No Fracture Seen Accession No. : [id number] Patient Name / ID : SELINA FARRAR / [id number] Exam Date : 10/22/2024 09:11:32 ( Final ) Study Comment : Sex / Age : F / 39Y Creator : HUMA SONG Dictator : Litigation Counsel : Hydrogenation Still Operator : HUMA SONG2 : Report Date : 10/22/2024 09:42:22 My Comment : PROCEDURE INFORMATION: Exam: XR Right Ankle Exam date and time: 10/22/2024 9:11 AM Age: 39 years old Clinical indication: Pain; Foot; Right TECHNIQUE: Imaging protocol: Radiologic exam of the right ankle. Views: 3 or more views. COMPARISON: CR XR ANKLE RT MIN 3V 10/22/2024 9:11 AM FINDINGS: Bones/joints: No evidence of fracture or dislocation. Soft tissues: Normal. IMPRESSION: Negative for fracture or dislocation #2: Image(s): Foot/Toes Image Reviewed: Yes I reviewed the patient's radiology image and Yes I have reviewed radiologist's interpretation Preliminary Findings: No Fracture Seen Accession No. : [id number] Patient Name / ID : SELINA FARRAR / [id number] Exam Date : 10/22/2024 09:13:27 ( Final ) Study Comment : Sex / Age : F / 39Y Creator : HUMA SONG Dictator : Litigation Counsel : Hydrogenation Still Operator : HUMA [email or web address] : Report Date : 10/22/2024 09:42:57 My Comment : PROCEDURE INFORMATION: Exam: XR Right Foot Exam date and time: 10/22/2024 9:13 AM Age: 39 years old Clinical indication: Pain; Foot; Right TECHNIQUE: Imaging protocol: Radiologic exam of the right foot. Views: 3 or more views. COMPARISON: CR XR ANKLE RT MIN 3V 10/22/2024 9:11 AM FINDINGS: Bones/joints: Normal. Soft tissues: Normal. IMPRESSION: No acute findings. Procedures Risk/Benefits of Procedure(s) Were Explained: Yes Orthopedic Splinting/Casting Injury #1: Side: right Lower Extremity Injury Location: ankle and foot Lower Extremity Immobilizer: Carson wrap and applied by nurse/dr leonardo Post Cast/Splinting Neuro Status: intact and no change Post Cast/Splinting Vasc Status: intact and no change
[2024-10-22 09:35] VITALS: BP 136/90; PULSE 83; RESP 20; TEMP 36.8; O2SAT 97; BMI 40.3
[2024-10-22 10:10] VITALS: BP 136/90; PULSE 83; RESP 20; TEMP 36.8; O2SAT 97
== END 2024-10-22 10:17 | disposition home or self-care (01) ==
PROVIDERS: Emergency Provider Nurse Practitioner Family; PCP Family Medicine
DX: S93.401A Sprain of unspecified ligament of right ankle, initial encounter (principal); S93.601A Unspecified sprain of right foot, initial encounter; M79.671 Pain in right foot; R22.41 Localized swelling, mass and lump, right lower limb
CPT/HCPCS: 73610; 73630; 99212; G0381

== ENCOUNTER 2024-11-13 16:00 | Outpatient (RCR) | payer BC, SELFPAY | END 2024-11-27 08:51 | disposition home or self-care (01) | LOC: PT 16:00 | PROVIDERS: Visit Provider Orthopaedic Surgery Adult Reconstructive Orthopaedic Surgery | DX: M70.61 Trochanteric bursitis, right hip (principal); M70.62 Trochanteric bursitis, left hip | CPT/HCPCS: 20560; 97014; 97033; 97035; 97110; 97163; 97164; 97530; G0283 ==

== ENCOUNTER 2024-11-26 09:11 | Outpatient (CLI) | payer BC, SELFPAY ==
[2024-11-26 16:54] LABS: Basophils % 0.4 % (0.1-2.0); Eosinophils # 0.1 K/mm3 (0.0-0.4); Hematocrit 41.3 % (37.0-47.0); Hemoglobin 13.4 g/dL (12.2-16.2); Lymphocytes # 1.7 K/mm3 (0.7-4.5); Lymphocytes % 21.6 % (10-50); Mean Corpuscular HGB Conc 32.4 g/dL (31.8-35.4); Mean Corpuscular Volume 89.4 fl (81-99); Mean Platelet Volume 9.6 fl (7.4-10.4); Monocytes # 0.6 K/mm3 (0.1-1.0); Monocytes % 7.9 % (1.7-9.3); Neutrophils # 5.5 K/mm3 (1.8-7.8); Neutrophils % 68.6 % (37.0-80.0); Platelet Count 309 K/mm3 (142-424); Red Blood Count 4.62 M/mm3 (4.20-5.40); Red Cell Distribution Width 14.3 % (11.5-17.5); White Blood Count 8.1 K/mm3 (4.8-10.8)
[2024-11-26 17:13] LABS: Alanine Aminotransferase 33 U/L (12-78); Albumin Level 3.7 g/dl (3.5-5.0); Albumin/Globulin Ratio 1.5 (1.1-1.8); Alkaline Phosphatase 59 U/L (38-126); Aspartate Amino Transferase 32 U/L (14-36); Bilirubin,Total 0.6 mg/dl (0.2-1.3); Blood Urea Nitrogen 8 mg/dl (7-17); Calcium 9.3 mg/dl (8.4-10.2); Carbon Dioxide 22 mmol/L (22.0-30.0); Chloride 104 mmol/L (98-107); Chol/HDL Ratio 4.3 (1-3.5); Cholesterol 153 mg/dl (140-200); Estimated Glomerular Filt Rate 111 ml/min (>60); GFR (African American) 134 ML/MIN (>60); Globulin 2.4 g/dL (1.3-3.2); Glucose 101 mg/dl (74-100); HDL Cholesterol 36 mg/dl (40-60); Sodium 135 mmol/L (136-145); Total Protein,Serum 6.1 g/dl (6.3-8.2); Triglycerides 187 mg/dl (30-150); VLDL Cholesterol 37 mg/dL (0-40)
[2024-11-26 17:24] LABS: Direct LDL Cholesterol 96.04 mg/dL (100-129)
[2024-11-26 17:28] LABS: 25-OH Vitamin D, Total 27.1 ng/mL (30-100)
[2024-11-26 17:32] LABS: Creatinine,Urine Random 143 mg/dL (Not Estab.); Microalbumin/Creatinine Ratio 25.6
[2024-11-26 17:43] LABS: Thyroid Stimulating Hormone 2.34 uIU/mL (0.465-4.68)
[2024-11-26 22:29] LABS: Hemoglobin A1C 5.8 % (4.0-6.0)
== END 2024-11-26 23:59 | disposition home or self-care (01) ==
LOC: LAB.DROPOF 11-27 09:12
PROVIDERS: PCP Nurse Practitioner Family; Visit Provider Nurse Practitioner Family
DX: Z98.890 Other specified postprocedural states (principal); Z90.89 Acquired absence of other organs; R53.83 Other fatigue; E55.9 Vitamin D deficiency, unspecified
CPT/HCPCS: 80050; 80053; 80061; 82043; 82306; 82570; 83036; 84443; 85025

== ENCOUNTER 2025-03-08 10:54 | Outpatient (CLI) | payer BC, SELFPAY ==
[2025-03-08 16:19] LABS: Basophils # 0.1 K/mm3 (0-0.2); Basophils % 0.5 % (0.1-2.0); Eosinophils # 0.2 K/mm3 (0.0-0.4); Eosinophils % 1.6 % (0.1-12.0); Hematocrit 39.5 % (37.0-47.0); Lymphocytes # 3.3 K/mm3 (0.7-4.5); Lymphocytes % 31.7 % (10-50); Mean Corpuscular HGB Conc 32.9 g/dL (31.8-35.4); Mean Corpuscular Hemoglobin 29.5 pg (27.0-31.2); Mean Corpuscular Volume 89.6 fl (81-99); Mean Platelet Volume 9.7 fl (7.4-10.4); Monocytes # 0.6 K/mm3 (0.1-1.0); Monocytes % 5.3 % (1.7-9.3); Neutrophils # 6.2 K/mm3 (1.8-7.8); Neutrophils % 60.6 % (37.0-80.0); Nucleated Red Blood Cells # 0 10^3/uL; Nucleated Red Blood Cells % 0 %; Platelet Count 343 K/mm3 (142-424); Red Blood Count 4.41 M/mm3 (4.20-5.40); Red Cell Distribution Width 13.5 % (11.5-17.5); White Blood Count 10.3 K/mm3 (4.8-10.8)
[2025-03-08 17:10] LABS: Alanine Aminotransferase 38 U/L (12-78); Albumin Level 3.9 g/dl (3.5-5.0); Albumin/Globulin Ratio 1.3 (1.1-1.8); Alkaline Phosphatase 54 U/L (38-126); Anion Gap 16.2 mEq/L (5-15); Aspartate Amino Transferase 32 U/L (14-36); Bilirubin,Total 0.2 mg/dl (0.2-1.3); Blood Urea Nitrogen 8 mg/dl (7-17); Calcium 9.3 mg/dl (8.4-10.2); Carbon Dioxide 19 mmol/L (22.0-30.0); Chloride 105 mmol/L (98-107); Estimated Glomerular Filt Rate 111 ml/min (>60); GFR (African American) 134 ML/MIN (>60); Glucose 137 mg/dl (74-100); Potassium 4.2 mmoL/L (3.5-5.1); Sodium 136 mmol/L (136-145); Total Protein,Serum 6.9 g/dl (6.3-8.2)
[2025-03-08 19:20] LABS: Triiodothryronine (T3) Uptake 25 % (23.5-40.5)
[2025-03-08 19:21] LABS: Free Thyroxine Index 2.9 ug/dL (5.93-13.13); T4 (Thyroxine) 11.7 ug/dl (5.53-11.0)
[2025-03-08 19:25] LABS: Hemoglobin A1C 5.8 % (4.0-6.0)
[2025-03-08 19:35] LABS: Thyroid Stimulating Hormone 3.27 uIU/mL (0.465-4.68)
[2025-03-09 04:26] LABS: FSH 1.2 mIU/mL (.); LH 1.1 mIU/mL (.)
--- OUTSIDE RECORDS SUMMARY | 2025-03-11 10:56 | XMS_ITS | Data Portability ---
Author Organization ELOISA EMI Beltre SALUDA CLOSED Address [address] [facility] [address] [place] [address] Care Team Providers Care Conference Services Director Name Role Phone LARISSA VILLANUEVA Primary Care Provider Assessment Encounter Date Assessment Date Assessment LastModified by Organization Details LastModified Time 10/27/2023 10/27/2023 We discussed kidney stone prevention. Follow up with [facility] in 6 months. Medical management of kidney stone prevention with potassium citrate. We discussed need for adequate hydration. Patient wishes to proceed with bilateral shockwave lithotripsy. She would prefer to have done this year while deductible is paid. [email or web address] Not available 11/06/2023 09:31:29 12/22/2023 12/22/2023 We discussed kidney stone prevention. Follow up with [facility] in 6 months. Medical management of kidney stone prevention with potassium citrate. We discussed need for adequate hydration. [email or web address] Not available 12/25/2023 11:58:30 06/07/2024 06/07/2024 We discussed kidney stone prevention with adequate hydration, avoidance of sodium and oxalate with increased dietary citrate. Follow-up with [facility]. Potassium citrate for stone prevention. [email or web address] Not available 06/10/2024 18:52:21 06/15/2024 06/15/2024 We reviewed options of management and she wants to proceed with ureteroscopy, laser lithotripsy next available. [email or web address] Not available 06/15/2024 11:32:37 10/11/2024 10/11/2024 [facility] results reviewed and continues to show small bilateral nonobstructing renal stones. We discussed kidney stone prevention with adequate hydration, reduced dietary intake of sodium and oxalate, increased dietary citrate. [email or web address] Not available 10/13/2024 12:26:15 Plan of Treatment Reminders Order Date Submit Date Provider Last Modified By Organization Details Last Modified Time Details Appointments None recorded. Lab urinalysis panel, auto 2023 024 [email or web address] [facility] Extended Services With [address], [place], [address], 4 05:43:35 culture, urine 2023 024 [facility], [address] [place] [address], [address], 4 10:22:32 urinalysis panel, auto 2023 024 [email or web address] 14 [facility] Extended Services With [address], [place], [address], 4 08:28:08 culture, urine 2023 024 [facility], [address] [place] [address], [address], 4 11:09:56 culture, urine 2022 023 [email or web address] 14 [facility], [address] [place] [address], [address], 3 11:05:20 urinalysis panel, auto 2022 023 [email or web address] 14 [facility] Extended Services With [address], [place], [address], 3 09:31:31 Referral None recorded. Procedures None recorded. Surgeries cystoscopy, with ureteroscop y, with lithotripsy , with insertion of ureteral stent (SURG) 2023 024 [email or web address] [facility] Professional Charges, [address] [facility], [address], [place], [address], 4 17:09:07 extra corporeal shockwave lithotripsy (SURG) 2022 023 [email or web address] [facility] (Surgery Scheduling), [address], [place], [address], 4 16:21:16 Imaging None recorded. Medication Orders hydrocodone 7.5 mg-acetamin ophen 325 mg tablet 2023 024 [facility][id number], [address] [place], [address], 4 11:34:32 ondansetron 4 mg disintegrat ing tablet 2023 024 [facility], [address] [place], [address], 4 11:34:30 tamsulosin 0.4 mg capsule 2023 024 [facility], [address] [place], [address], 4 11:34:29 potassium citrate ER 15 mEq (1,620 mg) tablet,exte nded release 2023 024 [email or web address] 14 [facility]/Pharmacy #3016, [address] [place], [address], 4 08:28:08 potassium citrate ER 15 mEq (1,620 mg) tablet,exte nded release 2022 0[email or web address] [address] [facility] [address] [place], [address], 3 11:05:20 Patient TargetsNo targets recorded. Patient Instructions Encounter Date Encounter Id Patient Instructions Last Modified By Organization Details Last Modified Time 06/07/2024 [id number] learning about healthy weight Not available 06/10/2024 18:52:22 06/15/2024 [id number] learning about depression [email or web address] Not available 06/15/2024 11:32:39 Reason for Referral None Reported. Results Created Date Observation Date Name Description Value Unit Range Abnormal Flag Note LastModifiedBy Organization Detail LastModifiedTime 10/27/2010/31/2023 URINE CULTU RE urine culture COLON Y COUNT : 10,00 0 - 100,0 00 CFU/M L Three or more isola molina; mixed skin segun . Not Available [facility] [address] [place], [address], 10/31/2023 12:09:38 10/27/2010/27/2023 urina lysis panel , auto Unknown Analyte Clean Catch Not Available [facility] Extended Services With [address], [place], [address], 10/27/2023 18:01:12 10/27/20 23 10/27/2023 urina lysis panel , auto Unknown Analyte Yellow Not Available [facility] Extended Services With [address], [place], [address], 10/27/2023 18:01:12 10/27/20 23 10/27/2023 urina lysis panel , auto Unknown Analyte Slight ly Hazy Not Available [facility] Extended Services With [address], [place], [address], 10/27/2023 18:01:12 10/27/20 23 10/27/2023 urina lysis panel , auto Unknown Analyte 1.005 Not Available [facility] Extended Services With [address], [place], [address], 10/27/2023 18:01:12 10/27/20 23 10/27/2023 urina lysis panel , auto Unknown Analyte 1.003- 1.035 Not Available [facility] Extended Services With [address], [place], [address], 10/27/2023 18:01:12 10/27/20 23 10/27/2023 urina lysis panel , auto Unknown Analyte 7.0 Not Available [facility] Extended Services With [address] [place], [address], 10/27/2023 18:01:12 10/27/20 23 10/27/2023 urina lysis panel , auto Unknown Analyte 5.0-8. 0 Not Available [facility] Extended Services With [address] Epstein, [place], [address], 10/27/2023 18:01:12 10/27/20 23 10/27/2023 urina lysis panel , auto Unknown Analyte 500 Pati/ul (++) Not Available [facility] Extended Services With [address] [place], [address], 10/27/2023 18:01:12 10/27/20 23 10/27/2023 urina lysis panel , auto Unknown Analyte Negati ve Not Available [facility] Extended Services With [address] [place], [address], 10/27/2023 18:01:12 10/27/20 23 10/27/2023 urina lysis panel , auto Unknown Analyte Negati ve Not Available [facility] Extended Services With [address] [place], [address], 10/27/2023 18:01:12 10/27/20 23 10/27/2023 urina lysis panel , auto Unknown Analyte Negati ve Not Available [facility] Extended Services With [address] [place], [address], 10/27/2023 18:01:12 10/27/20 23 10/27/2023 urina lysis panel , auto Unknown Analyte Negati ve Not Available [facility] Extended Services With [address], [place], [address], 10/27/2023 18:01:12 10/27/20 23 10/27/2023 urina lysis panel , auto Unknown Analyte Negati ve Not Available [facility] Extended Services With [address], [place], [address], 10/27/2023 18:01:12 10/27/20 23 10/27/2023 urina lysis panel , auto Unknown Analyte Normal Not Available [facility] Extended Services With [address], [place], [address], 10/27/2023 18:01:12 10/27/20 23 10/27/2023 urina lysis panel , auto Unknown Analyte Normal Not Available [facility] Extended Services With [address], [place], [address], 10/27/2023 18:01:12 10/27/20 23 10/27/2023 urina lysis panel , auto Unknown Analyte Negati ve Not Available [facility] Extended Services With [address], [place], [address], 10/27/2023 18:01:12 10/27/20 23 10/27/2023 urina lysis panel , auto Unknown Analyte Negati ve Not Available [facility] Extended Services With [address] Epstein, [place], [address], 10/27/2023 18:01:12 10/27/20 23 10/27/2023 urina lysis panel , auto Unknown Analyte Normal Not Available [facility] Extended Services With [address] [place], [address], 10/27/2023 18:01:12 10/27/20 23 10/27/2023 urina lysis panel , auto Unknown Analyte Normal 1 mg/dl Not Available [facility] Extended Services With [address] [place], [address], 10/27/2023 18:01:12 10/27/20 23 10/27/2023 urina lysis panel , auto Unknown Analyte Negati ve Not Available [facility] Extended Services With [address] [place], [address], 10/27/2023 18:01:12 10/27/20 23 10/27/2023 urina lysis panel , auto Unknown Analyte Negati ve Not Available [facility] Extended Services With [address] [place], [address], 10/27/2023 18:01:12 10/27/20 23 10/27/2023 urina lysis panel , auto Unknown Analyte 50 Neri/ul Not Available [facility] Extended Services With [address] [place], [address], 10/27/2023 18:01:12 10/27/20 23 10/27/2023 urina lysis panel , auto Unknown Analyte Negati ve Not Available [facility] Extended Services With [address] [place], [address], 10/27/2023 18:01:12 12/22/19 24 12/26/2023 URINE CULTU RE urine culture COLONY COUNT: > 100,00 0 CFU/ML Three or more isolat es; mixed skin segun. Not Available [facility] [address] [place] [address], [address], 12/26/2023 12:48:29 12/22/19 24 12/22/2023 urina lysis panel , auto Unknown Analyte Clean Catch Not Available [facility] Extended Services With [address], [place], [address], 12/22/2023 15:55:53 12/22/19 24 12/22/2023 urina lysis panel , auto Unknown Analyte Yellow Not Available [facility] Extended Services With [address] [place], [address], 12/22/2023 15:55:53 12/22/19 24 12/22/2023 urina lysis panel , auto Unknown Analyte Clear Not Available [facility] Extended Services With [address] [place], [address], 12/22/2023 15:55:53 12/22/19 24 12/22/2023 urina lysis panel , auto Unknown Analyte 1.015 Not Available [facility] Extended Services With [address], [place], [address], 12/22/2023 15:55:53 12/22/19 24 12/22/2023 urina lysis panel , auto Unknown Analyte 1.003- 1.035 Not Available [facility] Extended Services With [address], [place], [address], 12/22/2023 15:55:53 12/22/19 24 12/22/2023 urina lysis panel , auto Unknown Analyte 7.0 Not Available [facility] Extended Services With [address], [place], [address], 12/22/2023 15:55:53 12/22/19 24 12/22/2023 urina lysis panel , auto Unknown Analyte 5.0-8. 0 Not Available [facility] Extended Services With [address] [place], [address], 12/22/2023 15:55:53 12/22/19 24 12/22/2023 urina lysis panel , auto Unknown Analyte 500 Pati/ul (++) Not Available [facility] Extended Services With [address] [place], [address], 12/22/2023 15:55:53 12/22/19 24 12/22/2023 urina lysis panel , auto Unknown Analyte Negati ve Not Available [facility] Extended Services With [address] [place], [address], 12/22/2023 15:55:53 12/22/19 24 12/22/2023 urina lysis panel , auto Unknown Analyte Negati ve Not Available [facility] Extended Services With [address] [place], [address], 12/22/2023 15:55:53 12/22/19 24 12/22/2023 urina lysis panel , auto Unknown Analyte Negati ve Not Available [facility] Extended Services With [address] [place], [address], 12/22/2023 15:55:53 12/22/19 24 12/22/2023 urina lysis panel , auto Unknown Analyte Negati ve Not Available [facility] Extended Services With [address] [place], [address], 12/22/2023 15:55:53 12/22/19 24 12/22/2023 urina lysis panel , auto Unknown Analyte Negati ve Not Available [facility] Extended Services With [address] [place], [address], 12/22/2023 15:55:53 12/22/19 24 12/22/2023 urina lysis panel , auto Unknown Analyte Normal Not Available [facility] Extended Services With [address] [place], [address], 12/22/2023 15:55:53 12/22/19 24 12/22/2023 urina lysis panel , auto Unknown Analyte Normal Not Available [facility] Extended Services With [address] [place], [address], 12/22/2023 15:55:53 12/22/19 24 12/22/2023 urina lysis panel , auto Unknown Analyte 15 mg/dl (Sm) Not Available [facility] Extended Services With [address] [place], [address], 12/22/2023 15:55:53 12/22/19 24 12/22/2023 urina lysis panel , auto Unknown Analyte Negati ve Not Available [facility] Extended Services With [address] [place], [address], 12/22/2023 15:55:53 12/22/19 24 12/22/2023 urina lysis panel , auto Unknown Analyte Normal Not Available [facility] Extended Services With [address] [place], [address], 12/22/2023 15:55:53 12/22/19 24 12/22/2023 urina lysis panel , auto Unknown Analyte Normal 1 mg/dl Not Available [facility] Extended Services With [address] [place], [address], 12/22/2023 15:55:53 12/22/19 24 12/22/2023 urina lysis panel , auto Unknown Analyte 1 mg/dl (+) Not Available [facility] Extended Services With [address] [place], [address], 12/22/2023 15:55:53 12/22/19 24 12/22/2023 urina lysis panel , auto Unknown Analyte Negati ve Not Available [facility] Extended Services With [address] [place], [address], 12/22/2023 15:55:53 12/22/19 24 12/22/2023 urina lysis panel , auto Unknown Analyte 50 Neri/ul Not Available [facility] Extended Services With [address] [place], [address], 12/22/2023 15:55:53 12/22/19 24 12/22/2023 urina lysis panel , auto Unknown Analyte Negati ve Not Available [facility] Extended Services With [address] [place], [address], 12/22/2023 15:55:53 10/11/20 24 10/15/2024 URINE CULTU RE urine culture COLON Y COUNT : > 100,0 00 CFU/M L Three or more isola molina; mixed uroge nital segun . Not Available [facility] [address] [facility], [place], [address], 10/15/2024 09:23:01 10/11/20 24 10/11/2024 urina lysis panel , auto Unknown Analyte Clean Catch Not Available [facility] Extended Services With [address] [place], [address], 10/11/2024 16:43:25 10/11/20 24 10/11/2024 urina lysis panel , auto Unknown Analyte Yellow Not Available [facility] Extended Services With [address] [place], [address], 10/11/2024 16:43:25 10/11/20 24 10/11/2024 urina lysis panel , auto Unknown Analyte Clear Not Available [facility] Extended Services With [address], [place], [address], 10/11/2024 16:43:25 10/11/20 24 10/11/2024 urina lysis panel , auto Unknown Analyte 1.010 Not Available [facility] Extended Services With [address], [place], [address], 10/11/2024 16:43:25 10/11/20 24 10/11/2024 urina lysis panel , auto Unknown Analyte 1.003- 1.035 Not Available [facility] Extended Services With [address], [place], [address], 10/11/2024 16:43:25 10/11/20 24 10/11/2024 urina lysis panel , auto Unknown Analyte 7.0 Not Available [facility] Extended Services With [address], [place], [address], 10/11/2024 16:43:25 10/11/20 24 10/11/2024 urina lysis panel , auto Unknown Analyte 5.0-8. 0 Not Available [facility] Extended Services With [address], [place], [address], 10/11/2024 16:43:25 10/11/20 24 10/11/2024 urina lysis panel , auto Unknown Analyte 500 Pati/ul (++) Not Available [facility] Extended Services With [address], [place], [address], 10/11/2024 16:43:25 10/11/20 24 10/11/2024 urina lysis panel , auto Unknown Analyte Negati ve Not Available [facility] Extended Services With [address], [place], [address], 10/11/2024 16:43:25 10/11/20 24 10/11/2024 urina lysis panel , auto Unknown Analyte Negati ve Not Available [facility] Extended Services With [address] [place], [address], 10/11/2024 16:43:25 10/11/20 24 10/11/2024 urina lysis panel , auto Unknown Analyte Negati ve Not Available [facility] Extended Services With [address] [place], [address], 10/11/2024 16:43:25 10/11/20 24 10/11/2024 urina lysis panel , auto Unknown Analyte Negati ve Not Available [facility] Extended Services With [address] [place], [address], 10/11/2024 16:43:25 10/11/20 24 10/11/2024 urina lysis panel , auto Unknown Analyte Negati ve Not Available [facility] Extended Services With [address] [place], [address], 10/11/2024 16:43:25 10/11/20 24 10/11/2024 urina lysis panel , auto Unknown Analyte Normal Not Available [facility] Extended Services With [address] [place], [address], 10/11/2024 16:43:25 10/11/20 24 10/11/2024 urina lysis panel , auto Unknown Analyte Normal Not Available [facility] Extended Services With [address] [place], [address], 10/11/2024 16:43:25 10/11/20 24 10/11/2024 urina lysis panel , auto Unknown Analyte Negati ve Not Available [facility] With [address], [place], [address], 10/11/2024 16:43:25 10/11/20 24 10/11/2024 urina lysis panel , auto Unknown Analyte Negati ve Not Available [facility] Extended Services With [address], [place], [address], 10/11/2024 16:43:25 10/11/20 24 10/11/2024 urina lysis panel , auto Unknown Analyte Normal Not Available [facility] Extended Services With [address], [place], [address], 10/11/2024 16:43:25 10/11/20 24 10/11/2024 urina lysis panel , auto Unknown Analyte Normal 1 mg/dl Not Available [facility] With [address], [place], [address], 10/11/2024 16:43:25 10/11/20 24 10/11/2024 urina lysis panel , auto Unknown Analyte Negati ve Not Available [facility] Extended Services With [address], [place], [address], 10/11/2024 16:43:25 10/11/20 24 10/11/2024 urina lysis panel , auto Unknown Analyte Negati ve Not Available [facility] With [address], [place], [address], 10/11/2024 16:43:25 10/11/20 24 10/11/2024 urina lysis panel , auto Unknown Analyte Negati ve Not Available [facility] Extended Services With [facility] [address], [place], [address], 10/11/2024 16:43:25 10/11/20 24 10/11/2024 urina lysis panel , auto Unknown Analyte Negati ve Not Available [facility] Extended Services With [facility] [address], [place], [address], 10/11/2024 16:43:25 10/26/20 23 10/25/2023 XR, abdom en, 1 view No observ ation record ed. [email or web address] Not Available 2022 12:52:43 04/23/20 24 04/23/2024 XR, abdom en, 1 view No observ ation record ed. [email or web address] Not Available 2023 10:20:49 06/15/20 24 06/15/2024 CT, abdom en + pelvi s, w/o contr ast No observ ation record ed. [email or web address] [facility] [address] [place], [address], 06/15/2024 11:35:22 06/18/20 24 06/18/2024 XR, abdom en, 1 view No observ ation record ed. [email or web address] [facility] [address] [place], [address], 06/22/2024 09:05:33 10/12/20 24 10/08/2024 XR, abdom en, 1 view No observ ation record ed. [facility] Centralized Scheduling [address] [place], [address], 10/16/2024 17:29:52 Result Notes None recorded. Problems Name Problem SNOMED Code Status Onset Date Resolution Date Notes Provider Name and Address Organization Details Recorded Time Kidney stone 83801972 Active 017 ELOISA Mcdonough - [facility] 09/08/2017 15:24:19 Problem Notes None recorded. Procedures Surgical History Date Name Laterality Status Provider Name and Address Organization Details Recorded Time 3 Thyroid Surgery completed Dariel Rojo [facility] 04/21/2023 14:01:41 3 lobectomy of thyroid gland completed Kareen Mckeon [facility] 02/11/2023 14:40:26 1 EXTRA CORPOREAL SHOCKWAVE LITHOTRIPSY (SURG) completed [facility] 08/26/2022 15:15:13 9 CYSTOSCOPY, WITH URETEROSCOPY, WITH LITHOTRIPSY, WITH INSERTION OF URETERAL STENT (SURG) completed [facility] 10/10/2019 16:27:49 9 CYSTOSCOPY, WITH URETEROSCOPY, WITH LITHOTRIPSY, WITH INSERTION OF URETERAL STENT (SURG) completed [facility] 12/07/2019 13:05:02 7 [facility] 09/08/2017 15:24:36 7 CYSTOSCOPY, WITH URETEROSCOPY, WITH LITHOTRIPSY, WITH INSERTION OF URETERAL STENT (SURG) completed JOMAR JENKINS MD [address] [place] [address], [address] 06/04/2017 10:13:25 Kidney Stones completed [facility] 01/20/2017 14:07:46 Unlisted px accessory sinus completed [facility] 01/20/2017 14:07:59 Imaging Results Imaging Date Name Status LastModified by Organiz ation Details LastModified Time 10/25/2023 XR, abdomen, 1 view completed [email or web address] Information not available 10/27/2023 12:52:43 04/23/2024 XR, abdomen, 1 view completed [email or web address] Information not available 04/24/2024 10:20:49 06/15/2024 CT, abdomen + pelvis, w/o contrast completed [email or web address] [facility] [address], [place], [address], 06/15/2024 11:35:22 06/18/2024 XR, abdomen, 1 view completed [email or web address] [facility] [address] [place], [address], 06/22/2024 09:05:33 10/08/2024 XR, abdomen, 1 view completed NISHI [facility] [address] [place], [address], 10/16/2024 17:29:52 Procedure Notes None recorded. Medical Equipment None Reported. Allergies Allergen ID Allergen Name Allergen Category Reaction Reaction Severity Criticality Documentation Date Start Date Code Code System Note Provider Name and Address Organization Details Recorded Time 388972 Product containin g penicilli n (product) medicatio n Not available Not available Not available 01/20/2017 90052 8001 SNOMED Deseriee Carlisle [facility] 7 14:04:16 194542 Keflex medicatio n Not available Not available Not available 06/10/202242148 7 RxNorm Murelene Darrel [facility] 2 13:34:49 Medications Name Sig Start Date Stop Date Status Note LastModified by Organization Details LastModified Time verapamil ER (SR) 120 mg tablet,exte nded release TAKE 1 TABLET BY MOUTH EVERY DAY 06/07 completed Not Available Not Available Not Available glycopyrrol ate 1 mg tablet TAKE 2 TABLETS BY MOUTH EVERY MORNING AND 1 TABLET EVERY EVENING FOR KIDNEY STONES active Not Available Not Available No t Available buspirone 5 mg tablet 10/30 completed Not Available Not Available Not Available metformin 500 mg tablet TAKE 1 TABLET IN THE MORNING AND 2 IN THE EVENING active Not Available Not Available No t Available doxepin 50 mg capsule TAKE 1 CAPSULE BY MOUTH EACH DAY AT BEDTIME 06/07 completed Not Available Not Available Not Available promethazin e-DM 6.25 mg-15 mg/5 mL oral syrup 10/30 completed Not Available Not Available Not Available prednisone 10 mg tablet active Not Available Not Available Not Available doxycycline hyclate 100 mg capsule TAKE 1 CAPSULE BY MOUTH TWICE A DAY FOR 10 DAYS 10/11 completed Not Available Not Available Not Available labetalol 200 mg tablet 01/12 completed Not Available Not Available Not Available clindamycin HCl 300 mg capsule 11/06 completed Not Available Not Available Not Available triamcinolo ne acetonide 0.5 % topical cream 01/12 completed Not Available Not Available Not Available azithromyci n 250 mg tablet TAKE 2 TABLETS BY MOUTH TODAY, THEN TAKE 1 TABLET DAILY FOR 4 DAYS DIRECTED 06/07 completed Not Available Not Available Not Available ibuprofen 800 mg tablet 10/30 completed Not Available Not Available Not Available fluconazole 150 mg tablet 06/07 completed Not Available Not Available Not Available benzonatate 200 mg capsule 10/30 completed Not Available Not Available Not Available doxepin 25 mg capsule TAKE 1 CAPSULE BY MOUTH EVERY DAY AT BEDTIME 06/07 completed Not Available Not Available Not Available clarithromy kate 500 mg tablet 06/01 completed Not Available Not Available Not Available hydrocodone 5 mg-acetamin ophen 325 mg tablet TAKE 1 TABLET BY MOUTH EVERY 6 HOURS NEEDED FOR PAIN FOR UP TO 10 DAYS MAX DAILY: 4 TABLETS 06/07 completed Not Available Not Available Not Available fluconazole 200 mg tablet 01/12 completed Not Available Not Available Not Available promethazin e 12.5 mg tablet 01/12 completed Not Available Not Available Not Available phenazopyri dine 200 mg tablet TAKE ONE TABLET BY MOUTH AFTER MEALS active Not Available Not Available No t Available lisinopril 20 mg tablet TAKE 1 TABLET BY MOUTH EVERY DAY active Not Available Not Available No t Available ondansetron HCl 4 mg tablet TAKE 1 TABLET BY MOUTH EVERY 4 TO 6 HOURS NEEDED 06/07 completed Not Available Not Available Not Available famotidine 40 mg tablet TAKE 1 TABLET BY MOUTH EVERY DAY active Not Available Not Available No t Available prednisone 20 mg tablet 01/12 completed Not Available Not Available Not Available propranolol ER 60 mg capsule,24 hr,extended release TAKE 1 CAPSULE BY MOUTH EVERY DAY active Not Available Not Available No t Available clobetasol 0.05 % topical cream APPLY THIN COAT TO AFFECTED AREA TWICE A DAY 06/07 completed Not Available Not Available Not Available phentermine 37.5 mg tablet TAKE 1 TABLET BY MOUTH DAILY 30 MINUTES BEFORE OR 1-2 HOURS AFTER BREAKFAST active Not Available Not Available No t Available ciprofloxac in 500 mg tablet 01/18 completed Not Available Not Available Not Available sulfamethox azole 800 mg-trimetho prim 160 mg tablet 06/07 completed Not Available Not Available Not Available hydrocodone 10 mg-acetamin ophen 325 mg tablet 01/12 completed Not Available Not Available Not Available ondansetron 8 mg disintegrat ing tablet 10/30 completed Not Available Not Available Not Available meloxicam 7.5 mg tablet TAKE 1 TABLET BY MOUTH EVERY DAY FOR 90 DAYS active Not Available Not Available No t Available famotidine 20 mg tablet TAKE 1 TABLET BY MOUTH EVERY DAY AT BEDTIME NEEDED 06/07 completed Not Available Not Available Not Available amitriptyli ne 25 mg tablet TAKE 1 TABLET BY MOUTH EVERY DAY active Not Available Not Available No t Available mefenamic acid 250 mg capsule 10/30 completed Not Available Not Available Not Available tamsulosin 0.4 mg capsule TAKE 1 CAPSULE BY MOUTH EVERY DAY 2023 active Not Available Not Available Not Avai lable ropinirole 0.25 mg tablet TAKE ONE TABLET BY MOUTH NIGHTLY 1-3 HOURS BEFORE BEDTIME active Not Available Not Available No t Available benzonatate 100 mg capsule TAKE 1 CAPSULE BY MOUTH THREE TIMES A DAY NEEDED FOR COUGH 06/07 completed Not Available Not Available Not Available doxycycline monohydrate 100 mg capsule 03/06 completed Not Available Not Available Not Available hydrocodone 7.5 mg-acetamin ophen 325 mg tablet TAKE 1 TABLET BY MOUTH EVERY 4 TO 6 HOURS NEEDED active Not Available Not Available No t Available pantoprazol e 40 mg tablet,nahum yed release TAKE 1 TABLET BY MOUTH EVERY DAY FOR GERD active Not Available Not Available No t Available oseltamivir 75 mg capsule active Not Available Not Available Not Available metformin 1,000 mg tablet TAKE 1 TABLET BY MOUTH TWICE A DAY WITH A MEAL 06/07 completed Not Available Not Available Not Available ropinirole 0.5 mg tablet TAKE 1 TABLET BY MOUTH AT BEDTIME NIGHTLY - ADMINSTER 1 TO 3 HOURS BEFORE BEDTIME active Not Available Not Available No t Available ranitidine 150 mg tablet 10/30 completed Not Available Not Available Not Available lisinopril 10 mg tablet TAKE 1 TABLET BY MOUTH EVERY DAY active Not Available Not Available No t Available promethazin e 25 mg tablet Take 1 tablet every 4 hours by oral route as needed. 01/18 completed Not Available Not Available Not Available zafirlukast 20 mg tablet TAKE 1 TABLET BY MOUTH TWICE A DAY FOR ALLERGIES active Not Available Not Available No t Available oxybutynin chloride ER 5 mg tablet,exte nded release 24 hr TAKE 1 TABLET BY MOUTH EVERY DAY FOR HYPERHIDR OSIS active Not Available Not Available No t Available buspirone 7.5 mg tablet TAKE 1 TABLET BY MOUTH TWICE A DAY FOR ANXIETY active Not Available Not Available No t Available omeprazole 20 mg capsule,del ayed release 09/10 completed Not Available Not Available Not Available montelukast 10 mg tablet 01/12 completed Not Available Not Available Not Available codeine 10 mg-guaifene sin 100 mg/5 mL oral liquid TAKE 10 ML BY MOUTH EVERY 4 TO 6 HOURS NEEDED FOR COUGH 06/07 completed Not Available Not Available Not Available acyclovir 200 mg capsule TAKE 1 CAPSULE BY MOUTH 5 TIMES PER DAY. 06/07 completed Not Available Not Available Not Available fluticasone 100 mcg-salmete rol 50 mcg/dose blistr powdr for inhalation Inhale 1 puff twice a day by inhalatio n route. 11/06 completed Not Available Not Available Not Available ibuprofen 600 mg tablet TAKE 1 TABLET BY MOUTH THREE TIMES DAILY NEEDED FOR PAIN-TAKE WITH MEALS 06/07 completed Not Available Not Available Not Available levofloxaci n 500 mg tablet TAKE 1 TABLET BY MOUTH ONCE DAILY FOR 5 DAYS 06/07 completed Not Available Not Available Not Available levofloxaci n 750 mg tablet 06/07 completed Not Available Not Available Not Available scopolamine 1 mg over 3 days transdermal patch APPLY 1 PATCH ON THE SKIN EVERY 3 DAYS NEEDED FOR MOTION SICKNESS active Not Available Not Available No t Available methylpredn isolone 4 mg tablets in a dose pack 01/12 completed Not Available Not Available Not Available labetalol 100 mg tablet 01/12 completed Not Available Not Available Not Available albuterol sulfate HFA 90 mcg/actuati on aerosol inhaler 10/30 completed Not Available Not Available Not Available Vitamin D2 1,250 mcg (50,000 unit) capsule 01/12 completed Not Available Not Available Not Available hydroxyzine HCl 10 mg tablet TAKE 1 TABLET BY MOUTH THREE TIMES DAILY NEEDED 10/30 completed Not Available Not Available Not Available bromphenira mine-pseudo ephedrine-D M 2 mg-30 mg-10 mg/5 mL oral syrup 06/07 completed Not Available Not Available Not Available ondansetron 4 mg disintegrat ing tablet PLACE 1 TABLET SUBLINGUA LLY EVERY 4 HOURS NEEDED active Not Available Not Available No t Available cefdinir 300 mg capsule 01/12 completed Not Available Not Available Not Available topiramate 100 mg tablet TAKE 1 1/2 TABLETS BY MOUTH EVERY DAY 10/07 completed Not Available Not Available Not Available fluticasone propionate 50 mcg/actuati on nasal spray,suspe nsion INSTILL 1 SPRAY INTO EACH NOSTRIL EVERY DAY active Not Available Not Available No t Available metformin ER 500 mg tablet,exte nded release 24 hr TAKE 2 TABLETS BY MOUTH DAILY active Not Available Not Available No t Available sertraline 50 mg tablet TAKE 1 TABLET BY MOUTH EVERY DAY 06/07 completed Not Available Not Available Not Available doxycycline hyclate 100 mg tablet TAKE 1 TABLET BY MOUTH TWICE A DAY FOR 10 DAYS 02/11 completed Not Available Not Available Not Available loratadine 10 mg tablet TAKE 1 TABLET BY MOUTH EVERY DAY 06/07 completed Not Available Not Available Not Available Kariva (28) 0.15 mg-0.02 mg (21)/0.01 mg (5) tablet 10/30 completed Not Available Not Available Not Available Flonase 50 mcg/Actuati on nasl susp [place] 1 spray every day by intranasa l route. 01/12 completed Not Available Not Available Not Available azithromyci n 500 mg tablet 01/18 completed Not Available Not Available Not Available cyclobenzap rine 5 mg tablet TAKE 1 TABLET BY MOUTH TWICE A DAY 06/07 completed Not Available Not Available Not Available metformin ER 750 mg tablet,exte nded release 24 hr TAKE 2 TABLETS WITH MORNING MEAL AND 1 TABLET WITH EVENING MEAL ONCE A DAY 06/07 completed Not Available Not Available Not Available 12/17 (21) 1 mg-20 mcg tablet 10/30 completed Not Available Not Available Not Available 12/17 (28) 1 mg-20 mcg (21)/75 mg (7) tablet 10/30 completed Not Available Not Available Not Available (28) 1.5 mg-30 mcg (21)/75 mg (7) tablet TAKE 1 TABLET BY MOUTH EVERY DAY active Not Available Not Available No t Available metformin ER 1,000 mg tablet,exte nded release 24hr (osmotic) 01/12 completed Not Available Not Available Not Available nitrofurant oin monohydrate /macrocryst als 100 mg capsule TAKE 1 CAPSULE EVERY 12 HOURS FOR 10 DAYS. TAKE WITH FOOD active Not Available Not Available No t Available duloxetine 20 mg capsule,del ayed release TAKE 1 CAPSULE BY MOUTH TWICE A DAY 06/07 completed Not Available Not Available Not Available duloxetine 30 mg capsule,del ayed release TAKE 1 TABLET BY MOUTH TWICE A DAY FOR 90 DAYS active Not Available Not Available No t Available duloxetine 60 mg capsule,del ayed release Take 1 capsule every day by oral route. 10/30 completed Not Available Not Available Not Available glycopyrrol ate 06/06 completed Not Available Not Available Not Available lisinopril 01/12 completed Not Available Not Available Not Available verapamil 06/07 completed Not Available Not Available Not Available metformin 01/12 completed Not Available Not Available Not Available Accolate active Not Available Not Avai lable Not Available Levaquin 01/12 completed Not Available Not Available Not Available Topamax 01/12 completed Not Available Not Available Not Available multivitami n active Not Available Not Available Not Available Jolessa 0.15 mg-30 mcg (91) tablets,3 month dose pack 01/12 completed Not Available Not Available Not Available Havrix (PF) 1,440 APRIL unit/mL intramuscul ar syringe 10/30 completed Not Available Not Available Not Available levocetiriz ine 5 mg tablet TAKE 1 TABLET BY MOUTH EVERY DAY active Not Available Not Available No t Available Xyzal active Not Available Not Availa ble Not Available 12 Hour Decongestan t ER 120 mg tablet,exte nded release 06/07 completed Not Available Not Available Not Available potassium citrate ER 15 mEq (1,620 mg) tablet,exte nded release TAKE 1 TABLET BY MOUTH TWICE A DAY 2024 active Not Available Not Available Not Avai lable Xarelto 06/07 completed Not Available Not Available Not Available Xarelto 20 mg tablet TAKE 1 TABLET BY MOUTH EVERY DAY WITH EVENING MEAL 06/07 completed Not Available Not Available Not Available Xarelto DVT-PE Treatment 30-Day Starter 15 mg(42)-20 mg(9) tablet pack PLEASE SEE ATTACHED FOR DETAILED DIRECTION S 06/07 completed Not Available Not Available Not Available duloxetine 40 mg capsule,del ayed release TAKE 1 CAPSULE BY MOUTH EVERY DAY 06/07 completed Not Available Not Available Not Available Blisovi 24 Fe 1 mg-20 mcg (24)/75 mg (4) tablet 10/30 completed Not Available Not Available Not Available Afluria 4730-6445 (PF) 45 mcg(15 mcg x 3)/0.5 mL intramuscul ar syringe 01/12 completed Not Available Not Available Not Available Taytulla 1 mg-20 mcg (24)/75 mg (4) capsule 06/07 completed Not Available Not Available Not Available Taytulla 01/12 completed Not Available Not Available Not Available Flonase Sensimist 27.5 mcg/actuati on nasal spray,suspe nsion Take by nasal route. 01/12 completed Not Available Not Available Not Available Flucelvax Quad 5592-8603 (PF) 60 mcg (15 mcg x 4)/0.5 mL IM syringe 01/12 completed Not Available Not Available Not Available Afluria Quad 5963-2370 (PF) 60 mcg (15 mcg x 4)/0.5 mL IM syringe 10/30 completed Not Available Not Available Not Available Flucelvax Quad (PF) 60 mcg (15 mcg x 4)/0.5 mL IM syringe 10/30 completed Not Available Not Available Not Available ID NOW COVID-19 Test Kit TEST DIRECTED TODAY 02/11 completed Not Available Not Available Not Available Afluria Quad 60 mcg (15 mcg x 4)/0.5 mL intramuscul ar susp. 10/30 completed Not Available Not Available Not Available COVID-19 At-Home Test kit FOLLOW INSTRUCTI ONS INCLUDED WITH THE PACKAGE. 06/07 completed Not Available Not Available Not Available Vitals Date Recorded Body height Body mass index (BMI) Body weight Provider Name and Address Organization Details Last Updated DateTime 10/27/2023 170.18 cm 37.6 kg/m2 743325.17 g Dariel Rojo [facility] 10/27/2023 18:00:23 Date Recorded Body height Body mass index (BMI) Body weight Provider Name and Address Organization Details Last Updated DateTime 12/22/2023 170.18 cm 37.6 kg/m2 295330.17 madie Rojo [facility] 12/22/2023 15:54:24 Date Recorded Body height Body mass index (BMI) Body weight Provider Name and Address Organization Details Last Updated DateTime 06/07/2024 170.18 cm 37.6 kg/m2 [id number].Mela Rojo [facility] 06/07/2024 16:27:59 Date Recorded Body height Body mass index (BMI) Body weight Provider Name and Address Organization Details Last Updated DateTime 06/15/2024 170.18 cm 37.6 kg/m2 395154.17 madie Mora [facility] 06/15/2024 11:17:32 Date Recorded Body height Body mass index (BMI) Body weight Provider Name and Address Organization Details Last Updated DateTime 10/11/2024 170.18 cm 37.6 kg/m2 [id number].Mela Rojo [facility] 10/11/2024 16:21:07 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 Question Answer Notes LastModified by Organizat ion Details LastModified Time Tobacco Smoking Status [facility]2017 14:07:34 What Is Your Level Of Alcohol Consumption? Occasional [email or web address] Information not available 01/20/2017 How Much Tobacco Do You Chew? None [email or web address] Information not available 10/08/2019 What Was The Date Of Your Most Recent Tobacco Screening? 10/11/2024 [email or web address] Information not available 10/11/2024 How Much Tobacco Do You Smoke? No [email or web address] Information not available 10/08/2019 Sex: Female Functional Status None recorded. Mental Status None recorded. Family History Relationship Description Onset Age of this Age Resolved Age Notes LastModified by Organization Details LastModified Time Unspecified Relation Diabetes mellitus [email or web address] Not available 2016 14:07:17 Unspecified Relation Family history of malignant neoplasm [email or web address] Not available 2016 14:07:23 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 Condition Response Kidney Stones Y Anesthesia Complications N Anxiety Disorder Y Arthritis Y Cancer N High PSA Y Allergies/Hayfever Y Diabetes N Bleeding Disorder N Hypertension N Gynecological HistoryNo gynecological history recorded. Obstetrics History GPAL:G 0 P 0 0 0 0 Past Encounters Encounter ID Performer Location Encounter Start Date Encounter Closed Date Diagnosis/Indication Diagnosis SNOMED-CT Code Diagnosis ICD10 Code Diagnosis Note [id number] JOMAR JENKINS MD [facility] [address],[place] [address] 01/20/2017 13:35:35 01/27/2017 18:29:55 Recurrent urinary tract infection 366026838 N39.0 Kidney stone 97966487 N2 0.0 [id number] JOMAR JENKINS MD [facility] [address] [place] [address] 8 03/17/2017 15:53:55 03/29/2017 13:59:25 Kidney stone [id number] N20.0 [id number] JOMAR JENKINS MD [facility] [address] [place] [address],[address] [place] [address] 05/30/2017 13:46:27 05/30/2017 16:39:35 Ureteric stone 95628166 N20.1 [id number] JOMAR JENKINS MD [facility] [address] [place] [address],[address] [place] [address] 0 06/06/2017 14:01:34 06/15/2017 11:26:11 Kidney stone 88050231 N20.0 [id number] JOMAR JENKINS MD SURGERY SCHEDULE [address] [place] [address] 1 09/06/2017 12:02:35 09/06/2017 12:05:22 Postoperative pain 976253079 G89.18 [id number] JOMAR JENKINS MD [facility] [address],[place] [address] 09/08/2017 15:11:16 09/16/2017 14:12:36 Urinary tract infectious disease 00005860 N39.0 Kidney stone [id number] N2 0.0 [id number] JOMAR JENKINS MD [facility] [address],[place] [address] 01/12/2018 16:03:14 01/19/2018 17:57:28 Kidney stone [id number] N20.0 [id number] JOMAR JENKINS MD [facility] [address],[place] [address] 8 04/13/2018 16:18:20 04/19/2018 10:23:26 Kidney stone [id number] N20.0 Female str ess incontinence 52637625 N39.3 [id number] JOMAR JENKINS MD SURGERY SCHEDULE [address] [place] [address] 05/02/2018 12:37:08 05/02/2018 12:43:17 Postoperative pain 650526649 G89.18 Postoperative nausea 645 98048 R11.0 [id number] JOMAR JENKINS MD [facility] [address],[place] [address] 8 06/01/2018 14:03:58 06/08/2018 09:18:51 Female stress incontinence 30669101 N39.3 [id number] JOMAR JENKINS MD [facility] [address],[place] [address] 07/13/2018 15:58:52 08/01/2018 08:28:57 Female stress incontinence 27079400 N39.3 Kidney stone 51385946 N2 0.0 [id number] JOMAR JENKINS MD [facility] [address] [place], [place] [address] 11/06/2018 14:39:03 11/06/2018 16:18:12 Kidney stone [id number] N20.0 [id number] JOMAR JENKINS MD [facility] [address],[place] [address] 8 01/18/2019 16:46:50 01/29/2019 09:50:19 Kidney stone [id number] N20.0 [id number] JOMAR JENKINS MD [facility] [address],[place] [address] 8 06/21/2019 13:22:40 06/22/2019 11:29:21 Kidney stone [id number] N20.0 [id number] JOMAR JENKINS MD [facility] [address] [place] [address] 10/08/2019 14:40:47 10/08/2019 15:37:31 Renal colic 5947452 N23 Nausea 711696875 R11.0 Kidney stone [id number] N2 0.0 [id number] JOMAR JENKINS MD [facility] [address] [place] [address] 8 10/18/2019 15:30:34 10/29/2019 09:17:56 Kidney stone 14653914 N20.0 [id number] JOMAR JENKINS MD [facility] [address] [address] 0 03/06/2020 10:52:08 03/06/2020 11:57:49 Kidney stone [id number] N20.0 [id number] JOMAR JENKINS MD [facility] [address] [place] [address] 8 10/30/2020 16:09:29 10/31/2020 09:32:29 Urinary tract infectious disease 63892426 N39.0 Kidney stone 76620111 N2 0.0 [id number] JOMAR JENKINS MD [facility] [address],[place] [address] 0 02/17/2021 10:10:36 02/17/2021 11:10:26 Kidney stone [id number] N20.0 Nausea 326984813 R11.0 [id number] JOMAR JENKINS MD [facility] [address] [place] [address] 8 04/23/2021 15:42:16 04/24/2021 16:47:52 Kidney stone 37155722 N20.0 Female str ess incontinence 87379047 N39.3 [id number] JOMAR JENKINS MD [facility] [address] [place] [address] 8 05/28/2021 13:34:45 06/03/2021 13:36:03 Kidney stone [id number] N20.0 [id number] JOMAR JENKINS MD [facility] [address] [place] [address] 8 09/10/2021 15:48:39 09/10/2021 20:03:00 Kidney stone [id number] N20.0 [id number] JOMAR JENKINS MD [facility] [address] [place] [address] 8 03/11/2022 15:58:28 03/15/2022 18:21:01 Urinary tract infectious disease 86762703 N39.0 Kidney stone 07466389 N2 0.0 [id number] JOMAR JENKINS MD [facility] [address] [place] [address] 8 06/10/2022 13:22:52 06/11/2022 14:23:38 Urinary tract infectious disease 72212817 N39.0 Kidney stone 00741607 N2 0.0 [id number] JOMAR JENKINS MD [facility] [address],[place] [address] 8 10/07/2022 16:57:48 10/14/2022 14:35:22 Kidney stone [id number] N20.0 Urinary tr act infectious disease 25643661 N39.0 [id number] EMILE JAIMES [facility] [address] [place] [address] 02/11/2023 14:16:48 02/11/2023 15:13:01 Thyroid nodule 154302592 E04.1 02/11/2023 - soft incision, clean and intact; healing well with no signs of infections [id number] JOMAR JENKINS MD [facility] [address] [place] [address] 8 04/21/2023 13:29:14 04/21/2023 16:03:14 Kidney stone [id number] N20.0 Renal colic 8207772 N23 [id number] JOMAR JENKINS MD [facility] [address],[place] [address] 8 10/27/2023 16:02:00 10/31/2023 18:42:43 Kidney stone [id number] N20.0 Renal colic 2127281 N23 Urinary tr act infectious disease 99238464 N39.0 [id number] JOMAR JENKINS MD [facility] [address],[place] [address] 12/22/2023 15:42:28 12/22/2023 18:56:41 Kidney stone [id number] N20.0 Renal colic 6061762 N23 Urinary tr act infectious disease 89660798 N39.0 [id number] JOMAR JENKINS MD [facility] [address],[place] [address] 06/07/2024 15:09:31 06/07/2024 19:10:00 Kidney stone [id number] N20.0 Renal colic 7875141 N23 [id number] Alessandro Hood [facility] [address] [place] [address] 06/15/2024 11:06:59 06/15/2024 11:38:33 Ureteric stone 09108551 N20.1 Renal colic 5630707 N23 [id number] JOMAR JENKINS MD [facility] [address],[place] [address] 10/11/2024 16:03:12 10/11/2024 18:42:35 Urinary tract infectious disease 22973907 N39.0 Kidney stone 02723786 N2 0.0 Health Concerns Section Related Observation LastModified by Organization Detai ls LastModified Time None Recorded Concern Status LastModified by Organization Details LastModified Time None Recorded Advance Directives Directive None Recorded Payers Encounter Date Sequence Insurance Name Policy Number Policy Renee Covered Member ID Renee Member ID Guarantor Name 10/27/2023 1 [place] [id number] Celine F Dao [id number] Celine Dao 12/22/2023 1 [place] [id number] Celine F Dao [id number] Celine Dao 06/07/2024 1 [place] [id number] Celine F Dao [id number] Celine Dao 06/15/2024 1 [place] [id number] Celineantwan Dc [id number] Celine Dc 10/11/2024 1 [place] [id number] Celine Dc [id number] Celine Dc Notes Date Note Type Note Provider Name and Address Organization Details Recorded Time 10/27/2023 text/html 38-year-old gareth brown in the office for follow-up evaluation of urolithiasis. KUB performed on 10-25-2023 diagnosed 2 stones overlying right renal shadow measuring up to 4 mm, and one stone on the left measuring up to 5 mm. She has been taking potassium citrate for kidney stone prevention. No current flank pain or abdominal pain. No gross hematuria or dysuria. JOMAR JENKINS MD [address] [place] [address], [phone], [facility] 11/06/2023 09:31:54 12/22/2023 text/html 38-year-old gareth brown in the office for follow-up evaluation of urolithiasis status post ESWL, October 2023. She has been taking potassium citrate for kidney stone prevention. No gross hematuria. No dysuria. JOMAR JENKINS MD [address] [place] [address], [phone], [facility] 12/25/2023 11:58:53 06/07/2024 text/html 39-year-old gareth brown in the office for follow-up evaluation of urolithiasis status post ESWL, October 2023. She has been taking potassium citrate for kidney stone prevention. No current flank pain or abdominal pain. KUB from 04/23/2024 shows tiny left renal stone and 2 right renal stones, less than 4 mm. JOMAR JENKINS MD [address] [place] [address], [phone], [facility] 06/10/2024 18:53:11 06/15/2024 text/html 39-year-old gareth brown in the office for follow-up evaluation of urolithiasis She has history of ESWL, October 2023. She has been taking potassium citrate for kidney stone prevention. Right flank pain since [address] AP ([facility]) shows 3 mm right proximal ureteral stone. KUB from 04/23/2024 shows tiny left renal stone and 2 right renal stones, less than 4 mm. JOMAR JENKINS MD [address] [place] [address] [place], [phone], [facility] 06/15/2024 11:34:42 10/11/2024 text/html 39-year-old fema le in the office for follow-up evaluation of urolithiasis She has history of ESWL, October 2023. She has been taking potassium citrate for kidney stone prevention. Patient reports left flank discomfort that began yesterday, recent urination frequency, no other urination concerns, urination symptoms generally at baseline. KUB from 04/23/2024 shows tiny left renal stone and 2 right renal stones, less than 4 mm. KUB from earlier this week has not been faxed from [facility] and we are awaiting results for review. JOMAR JENKINS MD [facility] [place], [phone], [facility] 10/13/2024 12:26:31 OBGyn Episode No OBEpisode recorded.
--- OUTSIDE RECORDS SUMMARY | 2025-03-11 10:56 | XMS_ITS ---
Author Organization Unknown Medications Medication Instructions Effective Dates (start - stop) Status pantoprazole 40 MG Delayed R elease Oral Tablet 3945-91-11K18:00:00.000+00:0 0 - Completed pantoprazole 40 MG Delayed R elease Oral Tablet 8209-78-30Y09:00:00.000+00:0 0 - Completed {21 (ethinyl estradiol 0.03 MG / norethindrone acetate 1.5 MG Oral Tablet) / 7 (ferrous fumarate 75 MG Oral Tablet) } Pack [] [id number]:00:00.000+00:0 0 - Completed cyclobenzaprine hydrochlorid e 5 MG Oral Tablet 2526-65-02Z59:00:00.000+00:0 0 - Completed - 4426-12-78D14:00 :00.000+00:0 0 - Completed cyclobenzaprine hydrochlorid e 5 MG Oral Tablet 4177-91-19P75:00:00.000+00:0 0 - Completed cyclobenzaprine hydrochlorid e 5 MG Oral Tablet 8517-48-60F75:00:00.000+00:0 0 - Completed {21 (ethinyl estradiol 0.03 MG / norethindrone acetate 1.5 MG Oral Tablet) / 7 (ferrous fumarate 75 MG Oral Tablet) } Pack [] [id number]:00:00.000+00:0 0 - Completed cyclobenzaprine hydrochlorid e 5 MG Oral Tablet 5755-07-63Z61:00:00.000+00:0 0 - Completed pantoprazole 40 MG Delayed R elease Oral Tablet 0951-32-80N20:00:00.000+00:0 0 - Completed {21 (ethinyl estradiol 0.03 MG / norethindrone acetate 1.5 MG Oral Tablet) / 7 (ferrous fumarate 75 MG Oral Tablet) } Pack [[facility] ] [id number]:00:00.000+00:0 0 - Completed {21 (ethinyl estradiol 0.03 MG / norethindrone acetate 1.5 MG Oral Tablet) / 7 (ferrous fumarate 75 MG Oral Tablet) } Pack [[facility] ] 9583-01-26Z04:00:00.000+00:0 0 - Completed pantoprazole 40 MG Delayed R elease Oral Tablet 8452-21-65N48:00:00.000+00:0 0 - Completed {21 (ethinyl estradiol 0.03 MG / norethindrone acetate 1.5 MG Oral Tablet) / 7 (ferrous fumarate 75 MG Oral Tablet) } Pack [[facility] ] 7621-18-16R38:00:00.000+00:0 0 - Completed cyclobenzaprine hydrochlorid e 5 MG Oral Tablet 8236-84-49S95:00:00.000+00:0 0 - Completed fluticasone propionate 0.05 MG/ACTUAT Metered Dose Nasal Honor 6758-52-98H46:00:00 .000+00:0 0 - Completed verapamil hydrochloride 120 MG Extended Release Oral Tablet 5499-41-76D90:00:00.000+0 0:0 0 - Completed sertraline 50 MG Oral Tablet 01-07-10T:00:00.000+00:0 0 - Completed ondansetron 4 MG Disintegrat ing Oral Tablet 9079-41-86T65:00:00.000+00:0 0 - Completed cyclobenzaprine hydrochlorid e 5 MG Oral Tablet 6554-79-50T60:00:00.000+00:0 0 - Completed metformin hydrochloride 500 MG Oral Tablet 1682-63-73I11:00:00.000+00:0 0 - Completed meloxicam 7.5 MG Oral Tablet 01-27-16T:00:00.000+00:0 0 - Completed metformin hydrochloride 500 MG Oral Tablet 1027-09-50E02:00:00.000+00:0 0 - Completed meloxicam 7.5 MG Oral Tablet 01-07-25:00:00.000+00:0 0 - Completed metformin hydrochloride 500 MG Oral Tablet 3183-56-86N39:00:00.000+00:0 0 - Completed buspirone hydrochloride 7.5 MG Oral Tablet 1898-38-90X73:00:00.000+00:0 0 - Completed meloxicam 7.5 MG Oral Tablet 01-06-24:00:00.000+00:0 0 - Completed ondansetron 4 MG Disintegrat ing Oral Tablet [id number]:00:00.000+00:0 0 - Completed sertraline 50 MG Oral Tablet 01-26-03:00:00.000+00:0 0 - Completed sertraline 50 MG Oral Tablet 01-31-14:00:00.000+00:0 0 - Completed cyclobenzaprine hydrochlorid e 5 MG Oral Tablet 7022-61-57Q11:00:00.000+00:0 0 - Completed famotidine 40 MG Oral Tablet 01-08-30:00:00.000+00:0 0 - Completed ondansetron 4 MG Oral Tablet 01-28-15:00:00.000+00:0 0 - Completed meloxicam 7.5 MG Oral Tablet 02-01-13:00:00.000+00:0 0 - Completed lisinopril 10 MG Oral Tablet 01-27-10:00:00.000+00:0 0 - Completed lisinopril 10 MG Oral Tablet 01-09-19:00:00.000+00:0 0 - Completed {6 (azithromycin 250 MG Oral Tablet) } Pack [id number]:00:00.000+00:0 0 - Completed famotidine 40 MG Oral Tablet 01-30-09:00:00.000+00:0 0 - Completed lisinopril 20 MG Oral Tablet 01-09-01:00:00.000+00:0 0 - Completed topiramate 100 MG Oral Tablet 19-07-22:00:00.000+00:0 0 - Completed lisinopril 10 MG Oral Tablet 01-29-27:00:00.000+00:0 0 - Completed lisinopril 20 MG Oral Tablet 01-06-07:00:00.000+00:0 0 - Completed meloxicam 7.5 MG Oral Tablet 01-29-19:00:00.000+00:0 0 - Completed sertraline 50 MG Oral Tablet 01-30-04:00:00.000+00:0 0 - Completed famotidine 40 MG Oral Tablet 01-28-12:00:00.000+00:0 0 - Completed metformin hydrochloride 500 MG Oral Tablet 3784-10-14M68:00:00.000+00:0 0 - Completed metformin hydrochloride 500 MG Oral Tablet 9936-28-01J24:00:00.000+00:0 0 - Completed lisinopril 10 MG Oral Tablet 01-26-11:00:00.000+00:0 0 - Completed lisinopril 10 MG Oral Tablet 02-02-24:00:00.000+00:0 0 - Completed {6 (azithromycin 250 MG Oral Tablet) } Pack [id number]:00:00.000+00:0 0 - Completed 24 HR propranolol hydrochlor humera 60 MG Extended Release Oral Capsule [id number]:00:00.0 00+00:0 0 - Completed buspirone hydrochloride 7.5 MG Oral Tablet 0295-62-40V89:00:00.000+00:0 0 - Completed buspirone hydrochloride 7.5 MG Oral Tablet 0121-03-25E16:00:00.000+00:0 0 - Completed zafirlukast 20 MG Oral Tablet 20-12-13:00:00.000+00:0 0 - Completed 24 HR propranolol hydrochlor humera 60 MG Extended Release Oral Capsule 1997-23-07W04:00:00.0 00+00:0 0 - Completed levocetirizine dihydrochlori de 5 MG Oral Tablet 7818-72-88H45:00:00.000+00:0 0 - Completed fluconazole 150 MG Oral Tablet 2 769-70-95U71:00:00.000+00:0 0 - Completed 24 HR propranolol hydrochlor humera 60 MG Extended Release Oral Capsule 1710-47-62G53:00:00.0 00+00:0 0 - Completed zafirlukast 20 MG Oral Tablet 19-06-18:00:00.000+00:0 0 - Completed rivaroxaban 20 MG Oral Table t [Xarelto] [id number]:00:00.000+00:0 0 - Completed 24 HR propranolol hydrochlor humera 60 MG Extended Release Oral Capsule 2435-07-99F79:00:00.0 00+00:0 0 - Completed potassium citrate 15 MEQ Ext ended Release Oral Tablet 1590-05-48I12:00:00.000+00:0 0 - Completed potassium citrate 15 MEQ Ext ended Release Oral Tablet 1450-03-04K98:00:00.000+00:0 0 - Completed 24 HR propranolol hydrochlor humera 60 MG Extended Release Oral Capsule 8414-05-95O97:00:00.0 00+00:0 0 - Completed zafirlukast 20 MG Oral Tablet 20-03-18:00:00.000+00:0 0 - Completed zafirlukast 20 MG Oral Tablet 18-09-25:00:00.000+00:0 0 - Completed rivaroxaban 20 MG Oral Table t [Xarelto] 1377-62-25P22:00:00.000+00:0 0 - Completed buspirone hydrochloride 7.5 MG Oral Tablet 6096-83-64O11:00:00.000+00:0 0 - Completed fluconazole 150 MG Oral Tablet 2 029-82-16B95:00:00.000+00:0 0 - Completed potassium citrate 15 MEQ Ext ended Release Oral Tablet 4264-42-93T73:00:00.000+00:0 0 - Completed glycopyrrolate 1 MG Oral Tablet 4113-66-55Z26:00:00.000+00:0 0 - Completed glycopyrrolate 1 MG Oral Tablet 8705-80-28W52:00:00.000+00:0 0 - Completed doxycycline hyclate 100 MG O ral Tablet 3743-93-66Y23:00:00.000+00:0 0 - Completed levocetirizine dihydrochlori de 5 MG Oral Tablet 2913-83-26P60:00:00.000+00:0 0 - Completed levocetirizine dihydrochlori de 5 MG Oral Tablet 5528-94-45F70:00:00.000+00:0 0 - Completed glycopyrrolate 1 MG Oral Tablet 9305-00-75Y69:00:00.000+00:0 0 - Completed - 0223-89-85M04:00 :00.000+00:0 0 - Completed levocetirizine dihydrochlori de 5 MG Oral Tablet 8997-18-42X61:00:00.000+00:0 0 - Completed glycopyrrolate 1 MG Oral Tablet 1438-70-86B07:00:00.000+00:0 0 - Completed Patient Care team information Name Category Status Period Participants - - Proposed period not known -
== END 2025-03-08 23:59 | disposition home or self-care (01) ==
LOC: LAB.DROPOF 03-11 10:54
PROVIDERS: PCP Nurse Practitioner Family; Visit Provider Nurse Practitioner Family
DX: I10 Essential (primary) hypertension (principal); R63.5 Abnormal weight gain; R23.2 Flushing; Z68.41 Body mass index [BMI] 40.0-44.9, adult
CPT/HCPCS: 80053; 83001; 83002; 83036; 84436; 84443; 84479; 85025

== ENCOUNTER 2025-03-16 08:08 | Outpatient (CLI) | payer BC, SELFPAY ==
--- OUTSIDE RECORDS SUMMARY | 2025-03-16 08:10 | XMS_ITS | Data Portability ---
Author Organization ELOISA EMI [facility] Address [address] [place] [address] Care Team Providers Care Shuttler Name Role Phone LARISSA VILLANUEVA Primary Care Provider [phone] Assessment Encounter Date Assessment Date Assessment LastModified by Organization Details LastModified Time 10/27/2023 10/27/2023 We discussed kidney stone prevention. Follow up with [facility] in 6 months. Medical management of kidney stone prevention with potassium citrate. We discussed need for adequate hydration. Patient wishes to proceed with bilateral shockwave lithotripsy. She would prefer to have done this year while deductible is paid. [email or web address] Not available 11/06/2023 09:31:29 12/22/2023 12/22/2023 We discussed kidney stone prevention. Follow up with [facility] in 6 months. Medical management of kidney stone prevention with potassium citrate. We discussed need for adequate hydration. [email or web address] Not available 12/25/2023 11:58:30 06/07/2024 06/07/2024 We discussed kidney stone prevention with adequate hydration, avoidance of sodium and oxalate with increased dietary citrate. Follow-up with [facility]. Potassium citrate for stone prevention. [email or web address] Not available 06/10/2024 18:52:21 06/15/2024 06/15/2024 We reviewed options of management and she wants to proceed with ureteroscopy, laser lithotripsy next available. [email or web address] Not available 06/15/2024 11:32:37 10/11/2024 10/11/2024 [facility] results reviewed and continues to show small bilateral nonobstructing renal stones. We discussed kidney stone prevention with adequate hydration, reduced dietary intake of sodium and oxalate, increased dietary citrate. [email or web address] Not available 10/13/2024 12:26:15 Plan of Treatment Reminders Order Date Submit Date Provider Last Modified By Organization Details Last Modified Time Details Appointments None recorded. Lab urinalysis panel, auto 2023 024 [email or web address] 14 [facility] Extended Services With [address], [place], [address], 4 05:43:35 culture, urine [address] [facility], [address] [place] [address], [address], 4 10:22:32 urinalysis panel, auto 2023 024 [email or web address] 14 [facility] Extended Services With [address], [place], [address], 4 08:28:08 culture, urine [address] [facility], [address] [place] [address], [address], 4 11:09:56 culture, urine 2022 023 [email or web address] 14 [facility], [address] [place] [address], [address], 3 11:05:20 urinalysis panel, auto 2022 023 [email or web address] 14 [facility] Extended Services With [address] Epstein, [place], [address], 3 09:31:31 Referral None recorded. Procedures None recorded. Surgeries cystoscopy, with ureteroscop y, with lithotripsy , with insertion of ureteral stent (SURG) 2023 024 [email or web address] [facility] Place Of Service Professional Charges, [address] [facility], [address], [place], [address], 4 17:09:07 extra corporeal shockwave lithotripsy (SURG) 2022 023 [email or web address] [facility] (Surgery Scheduling), [address], [place], [address], 4 16:21:16 Imaging None recorded. Medication Orders hydrocodone 7.5 mg-acetamin ophen 325 mg tablet 2023 024 [facility]/Pharmacy #3016, [address] [place], [address], 4 11:34:32 ondansetron 4 mg disintegrat ing tablet 2023 024 [facility] [address] [place], [address], 4 11:34:30 tamsulosin 0.4 mg capsule 2023 024 [facility] [address] [place], [address], 4 11:34:29 potassium citrate ER 15 mEq (1,620 mg) tablet,exte nded release 2023 024 [email or web address] 14 [facility]/Pharmacy #3016, [address] [place], [address], 4 08:28:08 potassium citrate ER 15 mEq (1,620 mg) tablet,exte nded release 2022 023 [email or web address] 14 [facility] [address] [place], [address], 3 11:05:20 Patient TargetsNo targets recorded. Patient Instructions Encounter Date Encounter Id Patient Instructions Last Modified By Organization Details Last Modified Time 06/07/2024 [id number] learning about healthy weight [email or web address] Not available 06/10/2024 18:52:22 06/15/2024 [id number] learning about depression [email or web address] Not available 06/15/2024 11:32:39 Reason for Referral None Reported. Results Created Date Observation Date Name Description Value Unit Range Abnormal Flag Note LastModifiedBy Organization Detail LastModifiedTime 10/27/2010/31/2023 URINE CULTU RE urine culture COLON Y COUNT : 10,00 0 - 100,0 00 CFU/M L Three or more isola molina; mixed skin segun . Not Available [facility] [address] [place], [address], 10/31/2023 12:09:38 10/27/2010/27/2023 urina lysis panel , auto Unknown Analyte Clean Catch Not Available [facility] Extended Services With [address] Epstein, [place], [address], 10/27/2023 18:01:12 10/27/20 23 10/27/2023 urina lysis panel , auto Unknown Analyte Yellow Not Available [facility] Extended Services With [address] Epstein, [place], [address], 10/27/2023 18:01:12 10/27/20 23 10/27/2023 urina lysis panel , auto Unknown Analyte Slight ly Hazy Not Available [facility] Extended Services With [address], [place], [address], 10/27/2023 18:01:12 10/27/20 23 10/27/2023 urina lysis panel , auto Unknown Analyte 1.005 Not Available [facility] Extended Services With [address] Epstein, [place], [address], 10/27/2023 18:01:12 10/27/20 23 10/27/2023 urina lysis panel , auto Unknown Analyte 1.003- 1.035 Not Available [facility] Extended Services With [address] Epstein, [place], [address], 10/27/2023 18:01:12 10/27/20 23 10/27/2023 urina lysis panel , auto Unknown Analyte 7.0 Not Available [facility] Extended Services With [address] [place], [address], 10/27/2023 18:01:12 10/27/20 23 10/27/2023 urina lysis panel , auto Unknown Analyte 5.0-8. 0 Not Available [facility] Extended Services With [address] Epstein, [place], [address], 10/27/2023 18:01:12 10/27/20 23 10/27/2023 urina lysis panel , auto Unknown Analyte 500 Pati/ul (++) Not Available [facility] Extended Services With [address] [place], [address], 10/27/2023 18:01:12 10/27/20 23 10/27/2023 urina lysis panel , auto Unknown Analyte Negati ve Not Available [facility] Extended Services With [address] [place], [address], 10/27/2023 18:01:12 10/27/20 23 10/27/2023 urina lysis panel , auto Unknown Analyte Negati ve Not Available [facility] Extended Services With [address] [place], [address], 10/27/2023 18:01:12 10/27/20 23 10/27/2023 urina lysis panel , auto Unknown Analyte Negati ve Not Available [facility] Extended Services With [address] [place], [address], 10/27/2023 18:01:12 10/27/20 23 10/27/2023 urina lysis panel , auto Unknown Analyte Negati ve Not Available [facility] Extended Services With [address] Epstein, [place], [address], 10/27/2023 18:01:12 10/27/20 23 10/27/2023 urina lysis panel , auto Unknown Analyte Negati ve Not Available [facility] Extended Services With [address] Epstein, [place], [address], 10/27/2023 18:01:12 10/27/20 23 10/27/2023 urina lysis panel , auto Unknown Analyte Normal Not Available [facility] Extended Services With [address] Epstein, [place], [address], 10/27/2023 18:01:12 10/27/20 23 10/27/2023 urina lysis panel , auto Unknown Analyte Normal Not Available [facility] Extended Services With [address] Epstein, [place], [address], 10/27/2023 18:01:12 10/27/20 23 10/27/2023 urina lysis panel , auto Unknown Analyte Negati ve Not Available [facility] Extended Services With [address] Epstein, [place], [address], 10/27/2023 18:01:12 10/27/20 23 10/27/2023 urina lysis panel , auto Unknown Analyte Negati ve Not Available [facility] Extended Services With [address] Epstein, [place], [address], 10/27/2023 18:01:12 10/27/20 23 10/27/2023 urina lysis panel , auto Unknown Analyte Normal Not Available [facility] Extended Services With [address] [place], [address], 10/27/2023 18:01:12 10/27/20 23 10/27/2023 urina lysis panel , auto Unknown Analyte Normal 1 mg/dl Not Available [facility] Extended Services With [address] [place], [address], 10/27/2023 18:01:12 10/27/20 23 10/27/2023 urina lysis panel , auto Unknown Analyte Negati ve Not Available [facility] Extended Services With [address] [place], [address], 10/27/2023 18:01:12 10/27/20 23 10/27/2023 urina lysis panel , auto Unknown Analyte Negati ve Not Available [facility] Extended Services With [address] [place], [address], 10/27/2023 18:01:12 10/27/20 23 10/27/2023 urina lysis panel , auto Unknown Analyte 50 Neri/ul Not Available [facility] Extended Services With [address] [place], [address], 10/27/2023 18:01:12 10/27/20 23 10/27/2023 urina lysis panel , auto Unknown Analyte Negati ve Not Available [facility] Extended Services With [address] [place], [address], 10/27/2023 18:01:12 12/22/19 24 12/26/2023 URINE CULTU RE urine culture COLONY COUNT: > 100,00 0 CFU/ML Three or more isolat es; mixed skin segun. Not Available [facility] [address] [place] [address], [address], 12/26/2023 12:48:29 12/22/19 24 12/22/2023 urina lysis panel , auto Unknown Analyte Clean Catch Not Available [facility] Extended Services With [address] Epstein, [place], [address], 12/22/2023 15:55:53 12/22/19 24 12/22/2023 urina lysis panel , auto Unknown Analyte Yellow Not Available [facility] Extended Services With [address] [place], [address], 12/22/2023 15:55:53 12/22/19 24 12/22/2023 urina lysis panel , auto Unknown Analyte Clear Not Available [facility] Extended Services With [address] [place], [address], 12/22/2023 15:55:53 12/22/19 24 12/22/2023 urina lysis panel , auto Unknown Analyte 1.015 Not Available [facility] Extended Services With [address] Epstein, [place], [address], 12/22/2023 15:55:53 12/22/19 24 12/22/2023 urina lysis panel , auto Unknown Analyte 1.003- 1.035 Not Available [facility] Extended Services With [address] Epstein, [place], [address], 12/22/2023 15:55:53 12/22/19 24 12/22/2023 urina lysis panel , auto Unknown Analyte 7.0 Not Available [facility] Extended Services With [address] Epstein, [place], [address], 12/22/2023 15:55:53 12/22/19 24 12/22/2023 urina lysis panel , auto Unknown Analyte 5.0-8. 0 Not Available [facility] Extended Services With [address] [place], [address], 12/22/2023 15:55:53 12/22/19 24 12/22/2023 urina lysis panel , auto Unknown Analyte 500 Pati/ul (++) Not Available [facility] Extended Services With [address] [place], [address], 12/22/2023 15:55:53 12/22/19 24 12/22/2023 urina lysis panel , auto Unknown Analyte Negati ve Not Available [facility] Extended Services With [address] [place], [address], 12/22/2023 15:55:53 12/22/19 24 12/22/2023 urina lysis panel , auto Unknown Analyte Negati ve Not Available [facility] Extended Services With [address] [place], [address], 12/22/2023 15:55:53 12/22/19 24 12/22/2023 urina lysis panel , auto Unknown Analyte Negati ve Not Available [facility] Extended Services With [address] [place], [address], 12/22/2023 15:55:53 12/22/19 24 12/22/2023 urina lysis panel , auto Unknown Analyte Negati ve Not Available [facility] Extended Services With [address] [place], [address], 12/22/2023 15:55:53 12/22/19 24 12/22/2023 urina lysis panel , auto Unknown Analyte Negati ve Not Available [facility] Extended Services With [address] [place], [address], 12/22/2023 15:55:53 12/22/19 24 12/22/2023 urina lysis panel , auto Unknown Analyte Normal Not Available [facility] Extended Services With [address] [place], [address], 12/22/2023 15:55:53 12/22/19 24 12/22/2023 urina lysis panel , auto Unknown Analyte Normal Not Available [facility] Extended Services With [address] [place], [address], 12/22/2023 15:55:53 12/22/19 24 12/22/2023 urina lysis panel , auto Unknown Analyte 15 mg/dl (Sm) Not Available [facility] Extended Services With [address] [place], [address], 12/22/2023 15:55:53 12/22/19 24 12/22/2023 urina lysis panel , auto Unknown Analyte Negati ve Not Available [facility] Extended Services With [address] [place], [address], 12/22/2023 15:55:53 12/22/19 24 12/22/2023 urina lysis panel , auto Unknown Analyte Normal Not Available [facility] Extended Services With [address] [place], [address], 12/22/2023 15:55:53 12/22/19 24 12/22/2023 urina lysis panel , auto Unknown Analyte Normal 1 mg/dl Not Available [facility] Extended Services With [address] [place], [address], 12/22/2023 15:55:53 12/22/19 24 12/22/2023 urina lysis panel , auto Unknown Analyte 1 mg/dl (+) Not Available [facility] Extended Services With [address] [place], [address], 12/22/2023 15:55:53 12/22/19 24 12/22/2023 urina lysis panel , auto Unknown Analyte Negati ve Not Available [facility] Extended Services With [address] [place], [address], 12/22/2023 15:55:53 12/22/19 24 12/22/2023 urina lysis panel , auto Unknown Analyte 50 Neri/ul Not Available [facility] Extended Services With [address] [place], [address], 12/22/2023 15:55:53 12/22/19 24 12/22/2023 urina lysis panel , auto Unknown Analyte Negati ve Not Available [facility] Extended Services With [address] [place], [address], 12/22/2023 15:55:53 10/11/20 24 10/15/2024 URINE CULTU RE urine culture COLON Y COUNT : > 100,0 00 CFU/M L Three or more isola molina; mixed uroge nital segun . Not Available [facility] [address] [facility], [place], [address], 10/15/2024 09:23:01 10/11/20 24 10/11/2024 urina lysis panel , auto Unknown Analyte Clean Catch Not Available [facility] Extended Services With [address] [place], [address], 10/11/2024 16:43:25 10/11/20 24 10/11/2024 urina lysis panel , auto Unknown Analyte Yellow Not Available [facility] Extended Services With [address] [place], [address], 10/11/2024 16:43:25 10/11/20 24 10/11/2024 urina lysis panel , auto Unknown Analyte Clear Not Available [facility] Extended Services With [address], [place], [address], 10/11/2024 16:43:25 10/11/20 24 10/11/2024 urina lysis panel , auto Unknown Analyte 1.010 Not Available [facility] Extended Services With [address] Epstein, [place], [address], 10/11/2024 16:43:25 10/11/20 24 10/11/2024 urina lysis panel , auto Unknown Analyte 1.003- 1.035 Not Available [facility] Extended Services With [address], [place], [address], 10/11/2024 16:43:25 10/11/20 24 10/11/2024 urina lysis panel , auto Unknown Analyte 7.0 Not Available [facility] Extended Services With [address], [place], [address], 10/11/2024 16:43:25 10/11/20 24 10/11/2024 urina lysis panel , auto Unknown Analyte 5.0-8. 0 Not Available [facility] Extended Services With [address], [place], [address], 10/11/2024 16:43:25 10/11/20 24 10/11/2024 urina lysis panel , auto Unknown Analyte 500 Pati/ul (++) Not Available [facility] Extended Services With [address], [place], [address], 10/11/2024 16:43:25 10/11/20 24 10/11/2024 urina lysis panel , auto Unknown Analyte Negati ve Not Available [facility] Extended Services With [address], [place], [address], 10/11/2024 16:43:25 10/11/20 24 10/11/2024 urina lysis panel , auto Unknown Analyte Negati ve Not Available [facility] Extended Services With [address] [place], [address], 10/11/2024 16:43:25 10/11/20 24 10/11/2024 urina lysis panel , auto Unknown Analyte Negati ve Not Available [facility] Extended Services With [address] [place], [address], 10/11/2024 16:43:25 10/11/20 24 10/11/2024 urina lysis panel , auto Unknown Analyte Negati ve Not Available [facility] Extended Services With [address] [place], [address], 10/11/2024 16:43:25 10/11/20 24 10/11/2024 urina lysis panel , auto Unknown Analyte Negati ve Not Available [facility] Extended Services With [address] [place], [address], 10/11/2024 16:43:25 10/11/20 24 10/11/2024 urina lysis panel , auto Unknown Analyte Normal Not Available [facility] Extended Services With [address] [place], [address], 10/11/2024 16:43:25 10/11/20 24 10/11/2024 urina lysis panel , auto Unknown Analyte Normal Not Available [facility] Extended Services With [address] [place], [address], 10/11/2024 16:43:25 10/11/20 24 10/11/2024 urina lysis panel , auto Unknown Analyte Negati ve Not Available [facility] With [address], [place], [address], 10/11/2024 16:43:25 10/11/20 24 10/11/2024 urina lysis panel , auto Unknown Analyte Negati ve Not Available [facility] Extended Services With [address], [place], [address], 10/11/2024 16:43:25 10/11/20 24 10/11/2024 urina lysis panel , auto Unknown Analyte Normal Not Available [facility] Extended Services With [address], [place], [address], 10/11/2024 16:43:25 10/11/20 24 10/11/2024 urina lysis panel , auto Unknown Analyte Normal 1 mg/dl Not Available [facility] Extended [facility] With [address], [place], [address], 10/11/2024 16:43:25 10/11/20 24 10/11/2024 urina lysis panel , auto Unknown Analyte Negati ve Not Available [facility] Extended Services With [address], [place], [address], 10/11/2024 16:43:25 10/11/20 24 10/11/2024 urina lysis panel , auto Unknown Analyte Negati ve Not Available [facility] Extended Services With [address], [place], [address], 10/11/2024 16:43:25 10/11/20 24 10/11/2024 urina lysis panel , auto Unknown Analyte Negati ve Not Available [facility] Extended Services With [facility] [address], [place], [address], 10/11/2024 16:43:25 10/11/20 24 10/11/2024 urina lysis panel , auto Unknown Analyte Negati ve Not Available [facility] Extended Services With [facility] [address], [place], [address], 10/11/2024 16:43:25 10/26/20 23 10/25/2023 XR, abdom en, 1 view No observ ation record ed. [email or web address] Not Available 2022 12:52:43 04/23/20 24 04/23/2024 XR, abdom en, 1 view No observ ation record ed. [email or web address] Not Available 2023 10:20:49 06/15/20 24 06/15/2024 CT, abdom en + pelvi s, w/o contr ast No observ ation record ed. [email or web address] [facility] (Radiology) [address] [place], [address], 06/15/2024 11:35:22 06/18/20 24 06/18/2024 XR, abdom en, 1 view No observ ation record ed. [email or web address] [facility] Centralized Scheduling [address] [place], [address], 06/22/2024 09:05:33 10/12/20 24 10/08/2024 XR, abdom en, 1 view No observ ation record ed. [facility] Centralized Scheduling [address] [place], [address], 10/16/2024 17:29:52 Result Notes None recorded. Problems Name Problem SNOMED Code Status Onset Date Resolution Date Notes Provider Name and Address Organization Details Recorded Time Kidney stone 06088803 Active 017 ELOISA Mcdonough - [facility] 09/08/2017 15:24:19 Problem Notes None recorded. Procedures Surgical History Date Name Laterality Status Provider Name and Address Organization Details Recorded Time 3 Thyroid Surgery completed Dariel Rojo [facility] 04/21/2023 14:01:41 3 lobectomy of thyroid gland completed Kareen Mckeon [facility] 02/11/2023 14:40:26 1 EXTRA CORPOREAL SHOCKWAVE LITHOTRIPSY (SURG) completed [facility] 08/26/2022 15:15:13 9 CYSTOSCOPY, WITH URETEROSCOPY, WITH LITHOTRIPSY, WITH INSERTION OF URETERAL STENT (SURG) completed [facility] 10/10/2019 16:27:49 9 CYSTOSCOPY, WITH URETEROSCOPY, WITH LITHOTRIPSY, WITH INSERTION OF URETERAL STENT (SURG) completed [facility] 12/07/2019 13:05:02 7 [facility] 09/08/2017 15:24:36 7 CYSTOSCOPY, WITH URETEROSCOPY, WITH LITHOTRIPSY, WITH INSERTION OF URETERAL STENT (SURG) completed JOMAR JENKINS MD [address] [place] [address], [address] 06/04/2017 10:13:[address] [facility] 01/20/2017 14:07:46 Unlisted px accessory sinus completed [facility] 01/20/2017 14:07:59 Imaging Results Imaging Date Name Status LastModified by Organiz ation Details LastModified Time 10/25/2023 XR, abdomen, 1 view completed [email or web address] Information not available 10/27/2023 12:52:43 04/23/2024 XR, abdomen, 1 view completed [email or web address] Information not available 04/24/2024 10:20:49 06/15/2024 CT, abdomen + pelvis, w/o contrast completed [email or web address] [facility] (Radiology) [address], [place], [address], 06/15/2024 11:35:22 06/18/2024 XR, abdomen, 1 view completed [email or web address] [facility] Centralized Scheduling [address] [place], [address], 06/22/2024 09:05:33 10/08/2024 XR, abdomen, 1 view completed NISHI [facility] Centralized Scheduling [address] [place], [address], 10/16/2024 17:29:52 Procedure Notes None recorded. Medical Equipment None Reported. Allergies Allergen ID Allergen Name Allergen Category Reaction Reaction Severity Criticality Documentation Date Start Date Code Code System Note Provider Name and Address Organization Details Recorded Time [id number] Product containin g penicilli n (product) medicatio n Not available Not available Not available 01/20/2017 69874 8001 SNOMED Deseriee Jensen [facility] 7 14:04:16 520765 Keflex medicatio n Not available Not available Not available 06/10/202273655 7 RxNorm Murelene Darrel [facility] 2 13:34:49 Medications Name Sig Start Date [...] Available Flonase 50 mcg/Actuati on nasl susp Olin 1 spray every day by intranasa l [...] Not Available Not Available Not Available Afluria 0036-9569 (PF) 45 mcg(15 mcg x 3)/0.5 mL [...] Available Not Available Not Available Flucelvax Quad 2043-5832 (PF) 60 mcg (15 mcg x 4)/0.5 mL IM syringe 01/12 completed Not Available Not Available Not Available Afluria Quad 5570-6962 (PF) 60 mcg (15 mcg x 4)/0.5 [...] Updated DateTime 10/27/2023 170.18 cm 37.6 kg/m2 212909.17 g Dariel Rojo [facility] 10/27/2023 18:00:23 Date Recorded Body height Body mass index (BMI) Body weight Provider Name and Address Organization Details Last Updated DateTime 12/22/2023 170.18 cm 37.6 kg/m2 825774.17 madie Rojo [facility] 12/22/2023 15:54:24 Date Recorded Body height Body mass index (BMI) Body weight Provider Name and Address Organization Details Last Updated DateTime 06/07/2024 170.18 cm 37.6 kg/m2 650458.Mela Rojo [facility] 06/07/2024 16:27:59 Date Recorded Body height Body mass index (BMI) Body weight Provider Name and Address Organization Details Last Updated DateTime 06/15/2024 170.18 cm 37.6 kg/m2 495275.17 madie Mora [facility] 06/15/2024 11:17:32 Date Recorded Body height Body mass index (BMI) Body weight Provider Name and Address Organization Details Last Updated DateTime 10/11/2024 170.18 cm 37.6 kg/m2 921810.Mela Rojo [facility] 10/11/2024 16:21:07 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 Question Answer Notes LastModified by Organizat ion Details LastModified Time Tobacco Smoking Status [facility] 14:07:34 What Is Your Level Of Alcohol Consumption? Occasional [email or web address] Information not available 01/20/2017 How Much Tobacco Do You Chew? None [email or web address] Information not available 10/08/2019 What Was The Date Of Your Most Recent Tobacco Screening? 10/11/2024 [email or web address] Information not available 10/11/2024 How Much Tobacco Do You Smoke? No Information not available 10/08/2019 Sex: Female Functional [...] SNOMED-CT Code Diagnosis ICD10 Code Diagnosis Note [id number] JOMAR JENKINS MD [facility] [address],[place] [address] 01/20/2017 13:35:35 01/27/2017 18:29:55 Recurrent urinary tract infection 897718190 N39.0 Kidney stone 94528065 N2 0.0 [id number] JOMAR JENKINS MD [facility] [address] [place] [address] 8 03/17/2017 15:53:55 03/29/2017 13:59:25 Kidney stone 43810745 N20.0 [id number] JOMAR JENKINS MD [facility] [address] [place] [address],[place] [place] [address] 0 05/30/2017 13:46:27 05/30/2017 16:39:35 Ureteric stone 39233216 N20.1 [id number] JOMAR JENKINS MD [facility] [address] [place] [address],[address] [place] [address] 0 06/06/2017 14:01:34 06/15/2017 11:26:11 Kidney stone 13229835 N20.0 [id number] JOMAR JENKINS MD SURGERY SCHEDULE [address] [place] [address] 1 09/06/2017 12:02:35 09/06/2017 12:05:22 Postoperative pain 924373227 G89.18 [id number] JOMAR JENKINS MD [facility] [address],[place] [address] 09/08/2017 15:11:16 09/16/2017 14:12:36 Urinary tract infectious disease 25456932 N39.0 Kidney stone 05504740 N2 0.0 [id number] JOMAR JENKINS MD [facility] [address],[place] [address] 01/12/2018 16:03:14 01/19/2018 17:57:28 Kidney stone 10833535 N20.0 [id number] JOMAR JENKINS MD [facility] [address],[place] [address] 8 04/13/2018 16:18:20 04/19/2018 10:23:26 Kidney stone 61531109 N20.[address] Female str ess incontinence 28603080 N39.3 [id number] JOMAR JENKINS MD SURGERY SCHEDULE [address] [place] [address] 05/02/2018 12:37:08 05/02/2018 12:43:17 Postoperative pain 719049822 G89.18 Postoperative nausea 645 33488 R11.0 [id number] JOMAR JENKINS MD [facility] [address],[place] [address] 8 06/01/2018 14:03:58 06/08/2018 09:18:51 Female stress incontinence 92051906 N39.3 [id number] JOMAR JENKINS MD [facility] [address],[place] [address] 8 07/13/2018 15:58:52 08/01/2018 08:28:57 Female stress incontinence 49776781 N39.3 Kidney stone 08035121 N2 0.0 [id number] JOMAR JENKINS MD [facility] [address] [place], [place] [address] 11/06/2018 14:39:03 11/06/2018 16:18:12 Kidney stone 69908872 N20.0 [id number] JOMAR JENKINS MD [facility] [address],[place] [address] 8 01/18/2019 16:46:50 01/29/2019 09:50:19 Kidney stone 75090851 N20.0 [id number] JOMAR JENKINS MD [facility] [address],[place] [address] 8 06/21/2019 13:22:40 06/22/2019 11:29:21 Kidney stone 10322282 N20.0 [id number] JOMAR JENKINS MD [facility] [address] [place] [address] 0 10/08/2019 14:40:47 10/08/2019 15:37:31 Renal colic 3295424 N23 Nausea 466213239 R11.0 Kidney stone 65330029 N2 0.0 [id number] JOMAR JENKINS MD [facility] [address] [place] [address] 8 10/18/2019 15:30:34 10/29/2019 09:17:56 Kidney stone 73323472 N20.0 [id number] JOMAR JENKINS MD [facility] [address] [place] [address] 0 03/06/2020 10:52:08 03/06/2020 11:57:49 Kidney stone 94088394 N20.0 [id number] JOMAR JENKINS MD [facility] [address] [place] [address] 8 10/30/2020 16:09:29 10/31/2020 09:32:29 Urinary tract infectious disease 38158375 N39.0 Kidney stone 25799022 N2 0.0 [id number] JOMAR JENKINS MD [facility] [address] [place] [address] 0 02/17/2021 10:10:36 02/17/2021 11:10:26 Kidney stone 84454216 N20.0 Nausea 870190722 R11.0 [id number] JOMAR JENKINS MD [facility] [address] [place] [address] 8 04/23/2021 15:42:16 04/24/2021 16:47:52 Kidney stone 53730065 N20.0 Female str ess incontinence 53169808 N39.3 [id number] JOMAR JENKINS MD [facility] [address] [place] [address] 8 05/28/2021 13:34:45 06/03/2021 13:36:03 Kidney stone 69091534 N20.0 [id number] JOMAR JENKINS MD [facility] [address] [place] [address] 8 09/10/2021 15:48:39 09/10/2021 20:03:00 Kidney stone 12256508 N20.0 [id number] JOMAR JENKINS MD [facility] [address] [place] [address] 8 03/11/2022 15:58:28 03/15/2022 18:21:01 Urinary tract infectious disease 41350829 N39.0 Kidney stone 61938328 N2 0.0 [id number] JOMAR JENKINS MD [facility] [address] [place] [address] 8 06/10/2022 13:22:52 06/11/2022 14:23:38 Urinary tract infectious disease 04753198 N39.0 Kidney stone 89861430 N2 0.0 [id number] JOMAR JENKINS MD [facility] [address],[place] [address] 8 10/07/2022 16:57:48 10/14/2022 14:35:22 Kidney stone 80180209 N20.0 Urinary tr act infectious disease 22372609 N39.0 [id number] EMILE JAIMES MD [facility] [address] [place] [address] 02/11/2023 14:16:48 02/11/2023 15:13:01 Thyroid nodule 136822487 E04.1 02/11/2023 - soft incision, clean and intact; healing well with no signs of infections [id number] JOMAR JENKINS MD [facility] [address] [place] [address] 8 04/21/2023 13:29:14 04/21/2023 16:03:14 Kidney stone 27975811 N20.0 Renal colic 8790648 N23 [id number] JOMAR JENKINS MD [facility] [address],[place] [address] 8 10/27/2023 16:02:00 10/31/2023 18:42:43 Kidney stone 23990731 N20.0 Renal colic 5646681 N23 Urinary tr act infectious disease 13276642 N39.0 [id number] JOMAR JENKINS MD [facility] [address] [address] 12/22/2023 15:42:28 12/22/2023 18:56:41 Kidney stone 78660505 N20.0 Renal colic 1888174 N23 Urinary tr act infectious disease 84641699 N39.0 [id number] JOMAR JENKINS MD [facility] [address],[place] [address] 06/07/2024 15:09:31 06/07/2024 19:10:00 Kidney stone 22015836 N20.0 Renal colic 3632892 N23 [id number] Alessandro Hood [facility] [address] [place] [address] 06/15/2024 11:06:59 06/15/2024 11:38:33 Ureteric stone 45768191 N20.1 Renal colic 4102872 N23 [id number] JOMAR JENKINS MD [facility] [address],[place] [address] 10/11/2024 16:03:12 10/11/2024 18:42:35 Urinary tract infectious disease 30072179 N39.0 Kidney stone 20764937 N2 0.0 Health Concerns Section Related Observation LastModified by Organization Detai ls LastModified Time None Recorded Concern Status LastModified by Organization Details LastModified Time None Recorded Advance Directives Directive None Recorded Payers Encounter Date Sequence Insurance Name Policy Number Policy Renee Covered Member ID Renee Member ID Guarantor Name 10/27/2023 1 [place] [id number] Celine F Dao [id number] Celine Dao 12/22/2023 1 [place] [id number] Celine F Dao [id number] Celine Dao 06/07/2024 1 [place] [id number] Celine F Dao [id number] Celine Dao 06/15/2024 1 [place] [id number] 0 Celineantwan Dc [id number] Celine Dc 10/11/2024 1 [place] [id number] 0 Celine Dc [id number] Celine Dc Notes Date Note Type [...] gross hematuria or dysuria. JOMAR JENKINS MD [address] [place] [address], [phone], [facility] 11/06/2023 09:31:54 12/22/2023 text/html 38-year-old gareth brown in the office for follow-up evaluation of urolithiasis status post ESWL, October 2023. She has been taking potassium citrate for kidney stone prevention. No gross hematuria. No dysuria. JOMAR JENKINS MD [address] [place] [address], [phone], [facility] 12/25/2023 11:58:53 06/07/2024 text/html 39-year-old gareth brown in the office for follow-up evaluation of urolithiasis status post ESWL, October 2023. She has been taking potassium citrate for kidney stone prevention. No current flank pain or abdominal pain. KUB from 04/23/2024 shows tiny left renal stone and 2 right renal stones, less than 4 mm. JOMAR JENKINS MD [address] [place] [address], [phone], [facility] 06/10/2024 18:53:11 06/15/2024 text/html 39-year-old gareth brown in the office for follow-up evaluation of urolithiasis She has history of ESWL, October 2023. She has been taking potassium citrate for kidney stone prevention. Right flank pain since [address] AP ([facility]) shows 3 mm right proximal ureteral stone. KUB from 04/23/2024 shows tiny left renal stone and 2 right renal stones, less than 4 mm. JOMAR JENKINS MD [address] [place] [address] [place], [address], [facility] 06/15/2024 11:34:42 10/11/2024 text/html 39-year-old fema le [...] this week has not been faxed from [facility] and we are awaiting results for review. JOMAR JENKINS MD [facility] [place], [address], [facility] 10/13/2024 12:26:31 OBGyn Episode No OBEpisode recorded.
--- OUTSIDE RECORDS SUMMARY | 2025-03-16 08:11 | XMS_ITS ---
Author Organization Unknown Medications Medication Instructions Effective Dates (start - stop) Status pantoprazole 40 MG Delayed R elease Oral Tablet 3264-73-76J45:00:00.000+00:0 0 - Completed pantoprazole 40 MG Delayed R elease Oral Tablet 9831-61-50A17:00:00.000+00:0 0 - Completed {21 (ethinyl estradiol 0.03 MG / norethindrone acetate 1.5 MG Oral Tablet) / 7 (ferrous fumarate 75 MG Oral Tablet) } Pack [] 6232-46-52K77:00:00.000+00:0 0 - Completed cyclobenzaprine hydrochlorid e 5 MG Oral Tablet 4645-93-42A61:00:00.000+00:0 0 - Completed - 0849-29-50L90:00 :00.000+00:0 0 - Completed cyclobenzaprine hydrochlorid e 5 MG Oral Tablet 8439-04-60O51:00:00.000+00:0 0 - Completed cyclobenzaprine hydrochlorid e 5 MG Oral Tablet 7590-28-91B77:00:00.000+00:0 0 - Completed {21 (ethinyl estradiol 0.03 MG / norethindrone acetate 1.5 MG Oral Tablet) / 7 (ferrous fumarate 75 MG Oral Tablet) } Pack [] 7889-80-59Z76:00:00.000+00:0 0 - Completed cyclobenzaprine hydrochlorid e 5 MG Oral Tablet 7589-51-53G22:00:00.000+00:0 0 - Completed pantoprazole 40 MG Delayed R elease Oral Tablet 0286-43-92N35:00:00.000+00:0 0 - Completed {21 (ethinyl estradiol 0.03 MG / norethindrone acetate 1.5 MG Oral Tablet) / 7 (ferrous fumarate 75 MG Oral Tablet) } Pack [[facility] ] 6262-45-58H57:00:00.000+00:0 0 - Completed {21 (ethinyl estradiol 0.03 MG / norethindrone acetate 1.5 MG Oral Tablet) / 7 (ferrous fumarate 75 MG Oral Tablet) } Pack [[facility] ] [id number]:00:00.000+00:0 0 - Completed pantoprazole 40 MG Delayed R elease Oral Tablet 1106-83-86I39:00:00.000+00:0 0 - Completed {21 (ethinyl estradiol 0.03 MG / norethindrone acetate 1.5 MG Oral Tablet) / 7 (ferrous fumarate 75 MG Oral Tablet) } Pack [[facility] ] 9152-78-95R65:00:00.000+00:0 0 - Completed cyclobenzaprine hydrochlorid e 5 MG Oral Tablet 0310-23-44M30:00:00.000+00:0 0 - Completed fluticasone propionate 0.05 MG/ACTUAT Metered Dose Nasal [place] 5380-36-44S41:00:00 .000+00:0 0 - Completed verapamil hydrochloride 120 MG Extended Release Oral Tablet 6427-59-58T24:00:00.000+0 0:0 0 - Completed sertraline 50 MG Oral Tablet 01-07-10T:00:00.000+00:0 0 - Completed ondansetron 4 MG Disintegrat ing Oral Tablet 7338-35-64Q32:00:00.000+00:0 0 - Completed cyclobenzaprine hydrochlorid e 5 MG Oral Tablet 2658-44-92K34:00:00.000+00:0 0 - Completed metformin hydrochloride 500 MG Oral Tablet 6435-87-16O05:00:00.000+00:0 0 - Completed meloxicam 7.5 MG Oral Tablet 01-27-16T:00:00.000+00:0 0 - Completed metformin hydrochloride 500 MG Oral Tablet 0535-82-62C81:00:00.000+00:0 0 - Completed meloxicam 7.5 MG Oral Tablet 01-07-25:00:00.000+00:0 0 - Completed metformin hydrochloride 500 MG Oral Tablet 6167-44-32Y48:00:00.000+00:0 0 - Completed buspirone hydrochloride 7.5 MG Oral Tablet 8314-67-44Y21:00:00.000+00:0 0 - Completed meloxicam 7.5 MG Oral Tablet 01-06-24:00:00.000+00:0 0 - Completed ondansetron 4 MG Disintegrat ing Oral Tablet 3225-86-33K72:00:00.000+00:0 0 - Completed sertraline 50 MG Oral Tablet 01-26-03:00:00.000+00:0 0 - Completed sertraline 50 MG Oral Tablet 01-31-14:00:00.000+00:0 0 - Completed cyclobenzaprine hydrochlorid e 5 MG Oral Tablet 1714-72-69Z27:00:00.000+00:0 0 - Completed famotidine 40 MG Oral Tablet 01-08-30:00:00.000+00:0 0 - Completed ondansetron 4 MG Oral Tablet 01-28-15:00:00.000+00:0 0 - Completed meloxicam 7.5 MG Oral Tablet 02-01-13:00:00.000+00:0 0 - Completed lisinopril 10 MG Oral Tablet 01-27-10:00:00.000+00:0 0 - Completed lisinopril 10 MG Oral Tablet 01-09-19:00:00.000+00:0 0 - Completed {6 (azithromycin 250 MG Oral Tablet) } Pack 2841-36-67Z89:00:00.000+00:0 0 - Completed famotidine 40 MG Oral [...] Completed metformin hydrochloride 500 MG Oral Tablet 6432-43-68T89:00:00.000+00:0 0 - Completed metformin hydrochloride 500 MG Oral Tablet 8077-04-06U58:00:00.000+00:0 0 - Completed lisinopril 10 MG Oral Tablet 01-26-11:00:00.000+00:0 0 - Completed lisinopril 10 MG Oral Tablet 02-02-24:00:00.000+00:0 0 - Completed {6 (azithromycin 250 MG Oral Tablet) } Pack 5902-48-88J74:00:00.000+00:0 0 - Completed 24 HR propranolol hydrochlor humera 60 MG Extended Release Oral Capsule 7475-65-04M08:00:00.0 00+00:0 0 - Completed buspirone hydrochloride 7.5 MG Oral Tablet 4592-36-68M42:00:00.000+00:0 0 - Completed buspirone hydrochloride 7.5 MG Oral Tablet 0818-31-32J16:00:00.000+00:0 0 - Completed zafirlukast 20 MG Oral Tablet 20-12-13:00:00.000+00:0 0 - Completed 24 HR propranolol hydrochlor humera 60 MG Extended Release Oral Capsule 7526-00-95C02:00:00.0 00+00:0 0 - Completed levocetirizine dihydrochlori de 5 MG Oral Tablet 0088-09-73V11:00:00.000+00:0 0 - Completed fluconazole 150 MG Oral Tablet 2 108-56-56H15:00:00.000+00:0 0 - Completed 24 HR propranolol hydrochlor humera 60 MG Extended Release Oral Capsule 8682-42-68S94:00:00.0 00+00:0 0 - Completed zafirlukast 20 MG Oral Tablet 19-06-18:00:00.000+00:0 0 - Completed rivaroxaban 20 MG Oral Table t [Xarelto] 0250-22-26B76:00:00.000+00:0 0 - Completed 24 HR propranolol hydrochlor humera 60 MG Extended Release Oral Capsule 9429-56-80L49:00:00.0 00+00:0 0 - Completed potassium citrate 15 MEQ Ext ended Release Oral Tablet 3569-91-33R26:00:00.000+00:0 0 - Completed potassium citrate 15 MEQ Ext ended Release Oral Tablet 2116-73-56W65:00:00.000+00:0 0 - Completed 24 HR propranolol hydrochlor humera 60 MG Extended Release Oral Capsule 8575-95-46K09:00:00.0 00+00:0 0 - Completed zafirlukast 20 MG Oral Tablet 20-03-18:00:00.000+00:0 0 - Completed zafirlukast 20 MG Oral Tablet 18-09-25:00:00.000+00:0 0 - Completed rivaroxaban 20 MG Oral Table t [Xarelto] 8493-75-69M01:00:00.000+00:0 0 - Completed buspirone hydrochloride 7.5 MG Oral Tablet 7538-88-69I43:00:00.000+00:0 0 - Completed fluconazole 150 MG Oral Tablet 2 866-90-23K31:00:00.000+00:0 0 - Completed potassium citrate 15 MEQ Ext ended Release Oral Tablet 5258-57-96F57:00:00.000+00:0 0 - Completed glycopyrrolate 1 MG Oral Tablet 2056-78-69Q33:00:00.000+00:0 0 - Completed glycopyrrolate 1 MG Oral Tablet 6143-25-81G77:00:00.000+00:0 0 - Completed doxycycline hyclate 100 MG O ral Tablet 1032-93-58S02:00:00.000+00:0 0 - Completed levocetirizine dihydrochlori de 5 MG Oral Tablet 7708-39-69E36:00:00.000+00:0 0 - Completed levocetirizine dihydrochlori de 5 MG Oral Tablet 4709-50-45S09:00:00.000+00:0 0 - Completed glycopyrrolate 1 MG Oral Tablet 1523-00-69A42:00:00.000+00:0 0 - Completed - 2100-21-15H36:00 :00.000+00:0 0 - Completed levocetirizine dihydrochlori de 5 MG Oral Tablet 8330-31-75G22:00:00.000+00:0 0 - Completed glycopyrrolate 1 MG Oral Tablet 1412-09-12G68:00:00.000+00:0 0 - Completed Patient Care team information Name Category Status Period Participants - - Proposed period not known -
--- OUTSIDE RECORDS SUMMARY | 2025-03-16 08:11 | XMS_ITS | Data Portability ---
Author Organization [facility],, Main Office Address [address] [place] [address] Assessment Encounter Date Assessment Date Assessment LastModified by Organization Details LastModified Time 03/01/2022 03/01/2022 Annual gynecological exam performed. Patient will come back in a year unless there are new symptoms. Not available 03/01/2022 09:27:10 03/01/2023 03/01/2023 Annual gynecological exam performed. Patient will come back in a year unless there are new symptoms. [email or web address] Not available 03/01/2023 09:32:31 03/02/2024 03/02/2024 Annual gynecological exam performed. Patient will come back in a year unless there are new symptoms. Not available 03/02/2024 09:29:53 Plan of Treatment Reminders Order Date Submit Date Provider Last Modified By Organization Details Last Modified Time Details Appointments Saline-in fused sonogram 2024 04:00P Destiney Duque, DO Not available Not available Not available PRE-OP 15 2024 01:45P JASMINE Olguin Not available Not available Not available SURGERY 60 2024 01:00P Destiney Duque, DO Not available Not available Not available Lab urinalysi s, dipstick 2023 0405 024 [facility] Main Office, [address], [place], [address], 03/02/2024 10:45:01 test, urine 2023 024 [facility] Main Office, [address], [place], [address], 03/02/2024 10:45:02 urinalysi s, dipstick 2022 023 [facility] Main Office, [address], [place], [address], 03/01/2023 11:55:33 test, urine 2022 023 [facility] Main Office, [address], [place], [address], 03/01/2023 11:55:33 test, urine 2021 022 [facility] Main Office, [address], [place], [address], 03/01/2022 09:57:45 urinalysi s, dipstick 2021 022 [facility] Main Office, [address], [place], [address], 03/01/2022 09:58:07 Referral None recorded. Procedures None recorded. Surgeries None recorded. Imaging None recorded. Medication Orders () 1.5 mg-30 mcg (21)/75 mg (7) tablet 2023 024 [id number], [address] [place], [address], 03/02/2024 10:45:01 .04/26 (28) 1.5 mg-30 mcg (21)/75 mg (7) tablet 2021 022 [id number], [address] [place], [address], 03/01/2022 09:57:51 Patient TargetsNo targets recorded. Patient Instructions Encounter Date Encounter Id Patient Instructions Last Modified By Organization Details Last Modified Time 03/01/2023 [id number] premenstrual syndrome (PMS): care instructions [email or web address] Not available 03/04/2023 21:16:54 heavy menstrual periods: care instructions [email or web address] Not available 03/01/2023 11:55:33 Distinct and separate issues addressed beyond annual gynecology exam. Added 35-45 minutes on to visit. Patient's questions answered, concerns addressed. [email or web address] Not available 03/04/2023 21:16:01 Reason for Referral None Reported. Results Created Date Observation Date Name Description Value Unit Range Abnormal Flag Note LastModifiedBy Organization Detail LastModifiedTime 03/01/2003/03/2022 PAP TEST THIN PREP Pap test thin prep NEGATI VE FOR INTRAE PITHEL IAL LESION OR MALIGN DARIEN normal ACCES ILDEFONSO #: [id number] Sourc e: Cervi dru/E ndoce rvica l LMP: 02/09 Date Taken : 03/01 Speci men Type: ThinP rep Vial Date Repor anand: Clini dru Data: Last Pap: WNL () Cytot ech: Zulma Salter , CT( CP) Date Repor anand: Speci men Adequ acy: Satis facto ry for evalu ation Endoc ervic al/tr ansfo rmati on zone compo nent prese nt Gener al Categ oriza tion: NEGAT MARLIN FOR INTRA EPITH ELIAL LESIO N OR MALIG JEROMY This speci men has been jeff zed by the ThinP rep Imagi ng Syste m, an inter activ e compu ter syste m which chris ts the lab [place] the [place] of ThinP rep Pap Test slide s. Follo wing imagi ng, the slide was revie wed by a Cytot echno logis t and/o r Patho logis t. End of Repor t Techn ical servi luis provi ded by [facility] d/b/[facility], [address] [place] [address] Alberto Chow MD, Labor atory Direc tor. Case revie wed and diagn osis rende red at [facility] d[facility], [address] [place] [address] Alberto Chow MD, Labor atory [facility] tor. CONFI DENTI AL Not Available [facility] ([facility]) [address], [place], [address], 03/03/2022 10:26:43 03/01/20 22 03/01/2022 urina lysis , dipst ick Leukocytes - Not Available Main Of fice [address], [place], [address], 03/01/2022 09:28:53 03/01/20 22 03/01/2022 urina lysis , dipst ick Nitrite negati ve Not Available Main Office [address], [place], [address], 03/01/2022 09:28:53 03/01/20 22 03/01/2022 urina lysis , dipst ick Urobilinogen - Not Available Main Office [address], [place], [address], 03/01/2022 09:28:53 03/01/20 22 03/01/2022 urina lysis , dipst ick Protein - Not Available Main Offic e [address], [place], [address], 03/01/2022 09:28:53 03/01/20 22 03/01/2022 urina lysis , dipst ick pH 7.0 Not Available Main Offic e [address], [place], [address], 03/01/2022 09:28:53 03/01/20 22 03/01/2022 urina lysis , dipst ick Blood - Not Available Main Offic e [address], [place], [address], 03/01/2022 09:28:53 03/01/20 22 03/01/2022 urina lysis , dipst ick Specific [place] 1.005 Not Available Main O ffice [address], [place], [address], 03/01/2022 09:28:53 03/01/20 22 03/01/2022 urina lysis , dipst ick Ketone - Not Available Main Offic e [address], [place], [address], 03/01/2022 09:28:53 03/01/20 22 03/01/2022 urina lysis , dipst ick Bilirubin - Not Available Main Off ice [address], [place], [address], 03/01/2022 09:28:53 03/01/20 22 03/01/2022 urina lysis , dipst ick Glucose - Not Available Main Offic e [address], [place], [address], 03/01/2022 09:28:53 03/01/20 22 03/01/2022 pregn darien test, urine HCG negati ve Not Available Main Office [address], [place], [address], 03/01/2022 09:28:45 03/01/20 23 03/03/2023 PAP TEST THIN PREP Pap test thin prep NEGATI VE FOR INTRAE PITHEL IAL LESION OR MALIGN DARIEN normal ACCES ILDEFONSO #: [id number] Sourc e: Cervi dru/E ndoce rvica l LMP: [id number] Date Taken : 03/01 Speci men Type: ThinP rep Vial Date Repor anand: 023 Clini dru Data: Last Pap: wnl (403 2021) Cytot ech: Sherif Henley y, CT( CP) Date Repor anand: 023 Speci men Adequ acy: Satis facto ry for evalu ation Endoc ervic al/tr ansfo rmati on zone compo nent prese nt Gener al Categ oriza tion: NEGAT MARLIN FOR INTRA EPITH ELIAL LESIO N OR MALIG JEROMY This speci men has been jeff zed by the ThinP rep Imagi ng Syste m, an inter activ e compu ter syste m which chris ts the lab in [facility] of ThinP rep Pap Test slide s. Follo wing imagi ng, the slide was revie wed by a Cytot echno logis t and/o r Patho logis t. End of Repor t Techn ical servi luis provi ded by [facility] [employer], d/b/a [facility], [address] [place] [address] Alberto Chow MD, Labor atory Direc tor. Case revie wed and diagn osis rende red at [facility] [employer], d/b/a [facility], [address] [place] [address] Alberto Chow MD, Labor atory Direc tor. CONFI DENTI AL Not Available [facility] ([facility]) [address], [place], [address], 03/03/2023 14:35:15 03/01/20 23 03/01/2023 pregn darien test, urine HCG negati ve Not Available Main Office [address], [place], [address], 03/01/2023 09:35:20 03/01/20 23 03/01/2023 urina lysis , dipst ick Leukocytes - Not Available Main Of fice [address], [place], [address], 03/01/2023 09:35:12 03/01/20 23 03/01/2023 urina lysis , dipst ick Nitrite negati ve Not Available Main Office [address], [place], [address], 03/01/2023 09:35:12 03/01/20 23 03/01/2023 urina lysis , dipst ick Urobilinogen - Not Available Main Office [address], [place], [address], 03/01/2023 09:35:12 03/01/20 23 03/01/2023 urina lysis , dipst ick Protein - Not Available Main Offic e [address], [place], [address], 03/01/2023 09:35:12 03/01/20 23 03/01/2023 urina lysis , dipst ick pH 5.0 Not Available Main Offic e [address], [place], [address], 03/01/2023 09:35:12 03/01/20 23 03/01/2023 urina lysis , dipst ick Blood - Not Available Main Offic e [address], [place], [address], 03/01/2023 09:35:12 03/01/20 23 03/01/2023 urina lysis , dipst ick Specific [place] 1.005 Not Available Main O ffice [address], [place], [address], 03/01/2023 09:35:12 03/01/20 23 03/01/2023 urina lysis , dipst ick Ketone - Not Available Main Offic e [address], [place], [address], 03/01/2023 09:35:12 03/01/20 23 03/01/2023 urina lysis , dipst ick Bilirubin - Not Available Main Off ice [address], [place], [address], 03/01/2023 09:35:12 03/01/20 23 03/01/2023 urina lysis , dipst ick Glucose - Not Available Main Offic e [address], [place], [address], 03/01/2023 09:35:12 03/02/20 24 03/05/2024 PAP TEST THIN PREP Pap test thin prep Negati ve for Intrae pithel ial Lesion or Malign darien normal ACCES ILDEFONSO #: [id number] Sourc e: Cervi dru/E ndoce rvica l LMP: 024 Date Taken : 03/02 Speci men Type: ThinP rep Vial Date Repor anand: Clini dru Data: Last Pap: wnl (403 2022) Cytot ech: Haley Tang , CT( CP) Date Repor anand: Speci men Adequ acy: Satis facto ry for evalu ation Endoc ervic al/tr ansfo rmati on zone compo nent prese nt Gener al Categ oriza tion: NEGAT MARLIN FOR INTRA EPITH ELIAL LESIO N OR MALIG JEROMY This speci men has been jeff zed by the ThinP rep Imagi ng Syste m, an inter activ e compu ter syste m which chris ts the lab in the [place] of ThinP rep Pap Test slide s. Follo wing imagi ng, the slide was revie wed by a Cytot echno logis t and/o r Patho logis t. End of Repor t Techn ical servi luis provi ded by [facility], [employer], d/b/a [facility], [address] [place] [address] Maura ramachandran MD, Labor atory Dire tor. Case revie wed and diagn osis rende red at [facility]is ts, [employer], d/b/a [facility], [address] [place] [address] Maura ramachandran MD, Labor atory Dire tor. CONFI DENTI AL Not Available [facility] ([facility]) [address], [place], [address], 03/05/2024 13:27:25 03/02/20 24 03/02/2024 urina lysis , dipst ick Leukocytes - Not Available Main Of fice [address], [place], [address], 03/02/2024 09:31:39 03/02/20 24 03/02/2024 urina lysis , dipst ick Nitrite negati ve Not Available Main Office [address], [place], [address], 03/02/2024 09:31:39 03/02/20 24 03/02/2024 urina lysis , dipst ick Urobilinogen - Not Available Main Office [address], [place], [address], 03/02/2024 09:31:39 03/02/20 24 03/02/2024 urina lysis , dipst ick Protein - Not Available Main Offic e [address], [place], [address], 03/02/2024 09:31:39 03/02/20 24 03/02/2024 urina lysis , dipst ick pH 7.0 Not Available Main Offic e [address], [place], [address], 03/02/2024 09:31:39 03/02/20 24 03/02/2024 urina lysis , dipst ick Blood - Not Available Main Offic e [address], [place], [address], 03/02/2024 09:31:39 03/02/20 24 03/02/2024 urina lysis , dipst ick Specific [place] 1.005 Not Available Main O ffice [address], [place], [address], 03/02/2024 09:31:39 03/02/20 24 03/02/2024 urina lysis , dipst ick Ketone - Not Available Main Offic e [address], [place], [address], 03/02/2024 09:31:39 03/02/20 24 03/02/2024 urina lysis , dipst ick Bilirubin - Not Available Main Off ice [address], [place], [address], 03/02/2024 09:31:39 03/02/20 24 03/02/2024 pregn darien test, urine HCG negati ve Not Available Main Office [address], [place], [address], 03/02/2024 09:31:43 03/06/20 25 03/06/2025 urina lysis , dipst ick Leukocytes trace Not Available Main Of fice [address], [place], [address], 03/06/2025 09:53:49 03/06/20 25 03/06/2025 urina lysis , dipst ick Nitrite negati ve Not Available Main Office [address], [place], [address], 03/06/2025 09:53:49 03/06/20 25 03/06/2025 urina lysis , dipst ick Urobilinogen - Not Available Main Office [address], [place], [address], 03/06/2025 09:53:49 03/06/20 25 03/06/2025 urina lysis , dipst ick Protein - Not Available Main Offic e [address], [place], [address], 03/06/2025 09:53:49 03/06/20 25 03/06/2025 urina lysis , dipst ick pH 6.0 Not Available Main Offic e [address], [place], [address], 03/06/2025 09:53:49 03/06/20 25 03/06/2025 urina lysis , dipst ick Specific [place] 1.005 Not Available Main O ffice [address], [place], [address], 03/06/2025 09:53:49 03/06/20 25 03/06/2025 urina lysis , dipst ick Ketone - Not Available Main Offic e [address], [place], [address], 03/06/2025 09:53:49 03/06/20 25 03/06/2025 urina lysis , dipst ick Bilirubin - Not Available Main Off ice [address], [place], [address], 03/06/2025 09:53:49 03/06/2003/06/2025 pregn darien test, urine HCG negati ve Not Available Main Office [address], [place], [address], 03/06/2025 09:53:58 06/15/20 24 06/13/2024 imagi ng/di agnos tic resul t No observ ation record ed. [facility] [place] (Main) [address] [facility] , [place], [address], 06/19/2024 10:39:19 03/13/2003/13/2025 imagi ng/di agnos tic resul t No observ ation record ed. [id number] [id number], [place], [address], 03/13/2025 16:54:53 03/13/20 25 03/13/2025 imagi ng/di agnos tic resul t No observ ation record ed. [id number], [place], [address], 03/13/2025 16:55:06 Result Notes None recorded. Procedures Surgical History Date Name Laterality Status Provider Name and Address Organization Details Recorded Time 5 Date of Last Pap Smear completed [facility], 03/06/2025 09:53:36 4 Date of Last Mammogram completed [facility], 03/06/2025 10:00:47 Kidney endoscopy completed JASMINE Lira [address] [address], [place], [address], [facility] AND [facility], 01/14/2020 11:20:09 Imaging Results Imaging Date Name Status LastModified by Organiz ation Details LastModified Time 06/13/2024 imaging/diag nostic result completed [facility] [place] (Main) [address], [place], [address], 06/19/2024 10:39:19 03/13/2025 imaging/diag nostic result active [id number], [place], [address], 03/13/2025 16:54:53 03/13/2025 imaging/diag nostic result active [id number], [place], [address], 03/13/2025 16:55:06 Procedure Notes None recorded. Medical Equipment None Reported. Allergies Allergen ID Allergen Name Allergen Category Reaction Reaction Severity Criticality Documentation Date Start Date Code Code System Note Provider Name and Address Organization Details Recorded Time 794 Product containin g penicilli n (product) medicatio n anaphylax is severe Not available 12/12/2017 26228 8001 SNOMED Mitraannalisa Garcia [facility], 8 11:40:08 Medications Name Sig Start Date Stop Date Status Note LastModified by Organization Details LastModified Time verapamil ER (SR) 120 mg tablet,exte nded release TAKE 1 TABLET BY MOUTH EVERY DAY 03/02 completed Not Available Not Available Not Available glycopyrrol ate 1 mg tablet TAKE 2 TABLETS BY MOUTH IN THE MORNING AND 1 TABLET BY MOUTH AT NIGHT active Not Available Not Available No t Available buspirone 5 mg tablet 01/26 completed Not Available Not Available Not Available metformin 500 mg tablet TAKE 1 TABLET IN THE MORNING AND 2 IN THE EVENING 03/02 completed Not Available Not Available Not Available doxepin 50 mg capsule TAKE 1 CAPSULE BY MOUTH EACH DAY AT BEDTIME 03/02 completed Not Available Not Available Not Available promethazin e-DM 6.25 mg-15 mg/5 mL oral syrup 01/14 completed Not Available Not Available Not Available prednisone 10 mg tablet 03/02 completed Not Available Not Available Not Available doxycycline hyclate 100 mg capsule TAKE 1 CAPSULE BY MOUTH TWICE A DAY X 10 DAYS 03/06 completed Not Available Not Available Not Available ropinirole 1 mg tablet TAKE 1 TABLET BY MOUTH EVERY DAY active Not Available Not Available No t Available azithromyci n 250 mg tablet TAKE 2 TABLETS BY MOUTH TODAY, THEN TAKE 1 TABLET DAILY FOR 4 DAYS DIRECTED 03/02 completed Not Available Not Available Not Available ibuprofen 800 mg tablet TAKE 1 TABLET BY MOUTH EVERY 8 HOURS NEEDED FOR MODERATE PAIN 03/06 completed Not Available Not Available Not Available fluconazole 150 mg tablet PLEASE SEE ATTACHED FOR DETAILED DIRECTION S 03/06 completed Not Available Not Available Not Available benzonatate 200 mg capsule 01/14 completed Not Available Not Available Not Available doxepin 25 mg capsule TAKE 1 CAPSULE BY MOUTH EVERY DAY AT BEDTIME 03/02 completed Not Available Not Available Not Available hydrocodone 5 mg-acetamin ophen 325 mg tablet TAKE 1 TABLET BY MOUTH EVERY 6 HOURS NEEDED FOR PAIN FOR UP TO 10 DAYS MAX DAILY: 4 TABLETS 03/02 completed Not Available Not Available Not Available promethazin e 12.5 mg tablet 12/12 completed Not Available Not Available Not Available phenazopyri dine 200 mg tablet TAKE ONE TABLET BY MOUTH AFTER MEALS 03/06 completed Not Available Not Available Not Available lisinopril 20 mg tablet TAKE 1 TABLET BY MOUTH EVERY DAY 03/01 completed Not Available Not Available Not Available ondansetron HCl 4 mg tablet TAKE 1 TABLET BY MOUTH EVERY 4 TO 6 HOURS NEEDED 03/01 completed Not Available Not Available Not Available famotidine 40 mg tablet TAKE 1 TABLET BY MOUTH EVERY DAY active Not Available Not Available No t Available prednisone 20 mg tablet 12/12 completed Not Available Not Available Not Available propranolol ER 60 mg capsule,24 hr,extended release TAKE 1 CAPSULE BY MOUTH EVERY DAY active Not Available Not Available No t Available clobetasol 0.05 % topical cream APPLY THIN COAT TO AFFECTED AREA TWICE A DAY 03/01 completed Not Available Not Available Not Available Zyrtec 10 mg tablet Take 1 tablet every day by oral route. active Not Available Not Available No t Available phentermine 37.5 mg tablet TAKE 1 TABLET BY MOUTH DAILY 30 MINUTES BEFORE OR 1-2 HOURS AFTER BREAKFAST 03/06 completed Not Available Not Available Not Available ciprofloxac in 500 mg tablet 12/18 completed Not Available Not Available Not Available sulfamethox azole 800 mg-trimetho prim 160 mg tablet TAKE 1 TABLET BY ORAL ROUTE EVERY 12 HOURS FOR 3 DAYS 03/02 completed Not Available Not Available Not Available hydrocodone 10 mg-acetamin ophen 325 mg tablet 12/12 completed Not Available Not Available Not Available Mircette (28) 0.15 mg-0.02 mg (21)/0.01 mg (5) tablet Take 1 tablet every day by oral route. 12/18 completed Not Available Not Available Not Available tramadol 50 mg tablet TAKE 1/2 TABLET BY MOUTH EVERY 6 HOURS NEEDED FOR PAIN 03/06 completed Not Available Not Available Not Available ondansetron 8 mg disintegrat ing tablet 01/26 completed Not Available Not Available Not Available meloxicam 7.5 mg tablet TAKE 1 TABLET BY MOUTH EVERY DAY FOR 90 DAYS active Not Available Not Available No t Available famotidine 20 mg tablet TAKE 1 TABLET BY MOUTH EVERY DAY AT BEDTIME NEEDED 01/26 completed Not Available Not Available Not Available amitriptyli ne 25 mg tablet TAKE 1 TABLET BY MOUTH EVERY DAY 03/02 completed Not Available Not Available Not Available mefenamic acid 250 mg capsule Take 1 capsule every 6 hours by oral route as needed. 03/01 completed Not Available Not Available Not Available tamsulosin 0.4 mg capsule TAKE 1 CAPSULE BY MOUTH EVERY DAY 03/06 completed Not Available Not Available Not Available ropinirole 0.25 mg tablet TAKE ONE TABLET BY MOUTH NIGHTLY 1-3 HOURS BEFORE BEDTIME 03/06 completed Not Available Not Available Not Available benzonatate 100 mg capsule TAKE 1 CAPSULE BY MOUTH THREE TIMES A DAY NEEDED FOR COUGH 03/02 completed Not Available Not Available Not Available doxycycline monohydrate 100 mg capsule 01/14 completed Not Available Not Available Not Available hydrocodone 7.5 mg-acetamin ophen 325 mg tablet TAKE 1 TABLET BY MOUTH EVERY 4 TO 6 HOURS NEEDED 03/06 completed Not Available Not Available Not Available pantoprazol e 40 mg tablet,nahum yed release TAKE 1 TABLET BY MOUTH EVERY DAY FOR GERD active Not Available Not Available No t Available oseltamivir 75 mg capsule 03/06 completed Not Available Not Available Not Available metformin 1,000 mg tablet TAKE 1 TABLET BY MOUTH TWICE A DAY WITH A MEAL 03/01 completed Not Available Not Available Not Available ropinirole 0.5 mg tablet TAKE 1 TABLET BY MOUTH AT BEDTIME NIGHTLY - ADMINSTER 1 TO 3 HOURS BEFORE BEDTIME 03/06 completed Not Available Not Available Not Available ranitidine 150 mg tablet 01/26 completed Not Available Not Available Not Available lisinopril 10 mg tablet TAKE 1 TABLET BY MOUTH EVERY DAY active Not Available Not Available No t Available promethazin e 25 mg tablet 03/06 completed Not Available Not Available Not Available zafirlukast 20 mg tablet TAKE 1 TABLET BY MOUTH TWICE A DAY FOR ALLERGIES 03/06 completed Not Available Not Available Not Available oxybutynin chloride ER 5 mg tablet,exte nded release 24 hr TAKE 1 TABLET BY MOUTH EVERY DAY FOR HYPERHIDR OSIS 03/06 completed Not Available Not Available Not Available buspirone 7.5 mg tablet TAKE 1 TABLET BY MOUTH TWICE A DAY FOR ANXIETY active Not Available Not Available No t Available omeprazole 20 mg capsule,del ayed release TAKE 1 CAPSULE BY MOUTH 30 MINUTES BEFORE MORNING MEAL EACH DAY 03/01 completed Not Available Not Available Not Available montelukast 10 mg tablet 12/12 completed Not Available Not Available Not Available codeine 10 mg-guaifene sin 100 mg/5 mL oral liquid TAKE 10 ML BY MOUTH EVERY 4 TO 6 HOURS NEEDED FOR COUGH 03/06 completed Not Available Not Available Not Available acyclovir 200 mg capsule TAKE 1 CAPSULE BY MOUTH 5 TIMES PER DAY. 03/02 completed Not Available Not Available Not Available ibuprofen 600 mg tablet TAKE 1 TABLET BY MOUTH THREE TIMES DAILY NEEDED FOR PAIN-TAKE WITH MEALS 03/01 completed Not Available Not Available Not Available levofloxaci n 500 mg tablet TAKE 1 TABLET BY MOUTH ONCE DAILY FOR 5 DAYS 03/06 completed Not Available Not Available Not Available levofloxaci n 750 mg tablet 03/02 completed Not Available Not Available Not Available scopolamine 1 mg over 3 days transdermal patch APPLY 1 PATCH ON THE SKIN EVERY 3 DAYS NEEDED FOR MOTION SICKNESS 03/06 completed Not Available Not Available Not Available albuterol sulfate HFA 90 mcg/actuati on aerosol inhaler 01/26 completed Not Available Not Available Not Available hydroxyzine HCl 10 mg tablet 03/01 completed Not Available Not Available Not Available bromphenira mine-pseudo ephedrine-D M 2 mg-30 mg-10 mg/5 mL oral syrup 03/02 completed Not Available Not Available Not Available ondansetron 4 mg disintegrat ing tablet PLACE 1 TABLET SUBLINGUA LLY EVERY 4 HOURS NEEDED 03/06 completed Not Available Not Available Not Available cefdinir 300 mg capsule 12/12 completed Not Available Not Available Not Available topiramate 100 mg tablet TAKE 1 1/2 TABLETS BY MOUTH EVERY DAY 03/01 completed Not Available Not Available Not Available metformin ER 500 mg tablet,exte nded release 24 hr TAKE 2 TABLETS BY MOUTH ONCE FOR 90 DAYS active Not Available Not Available No t Available sertraline 50 mg tablet TAKE ONE TABLET BY MOUTH ONCE DAILY FOR DEPRESSIO N 03/02 completed Not Available Not Available Not Available doxycycline hyclate 100 mg tablet TAKE 1 TABLET BY MOUTH TWICE A DAY FOR 10 DAYS 03/01 completed Not Available Not Available Not Available loratadine 10 mg tablet TAKE 1 TABLET BY MOUTH EVERY DAY 03/02 completed Not Available Not Available Not Available azithromyci n 500 mg tablet 12/18 completed Not Available Not Available Not Available cyclobenzap rine 5 mg tablet TAKE 1 TABLET BY MOUTH TWICE A DAY 03/02 completed Not Available Not Available Not Available metformin ER 750 mg tablet,exte nded release 24 hr TAKE 2 TABLETS WITH MORNING MEAL AND 1 TABLET WITH EVENING MEAL DAILY 03/01 completed Not Available Not Available Not Available 12/17 (21) 1 mg-20 mcg tablet TAKE 1 TABLET BY MOUTH EVERY DAY for three weeks, then skip sugar pill week and start new pack 05/03 completed Not Available Not Available Not Available 12/17 (28) 1 mg-20 mcg (21)/75 mg (7) tablet TAKE 1 TABLET BY MOUTH EVERY DAY 09/15 completed Not Available Not Available Not Available (28) 1.5 mg-30 mcg (21)/75 mg (7) tablet TAKE 1 TABLET BY MOUTH EVERY DAY active Not Available Not Available No t Available nitrofurant oin monohydrate /macrocryst als 100 mg capsule TAKE 1 CAPSULE EVERY 12 HOURS FOR 10 DAYS. TAKE WITH FOOD 03/06 completed Not Available Not Available Not Available duloxetine 20 mg capsule,del ayed release TAKE ONE TABLET BY MOUTH TWICE A DAY active Not Available Not Available No t Available duloxetine 30 mg capsule,del ayed release TAKE 1 CAPSULE BY MOUTH TWICE A DAY FOR 90 DAYS active Not Available Not Available No t Available duloxetine 60 mg capsule,del ayed release 1 tablet at night 01/26 completed Not Available Not Available Not Available Accolate 20 active Not Available Not Avai lable Not Available multivitami n active Not Available Not Available Not Available Baby Aspirin 03/02 completed Not Available Not Available Not Available Havrix (PF) 1,440 APRIL unit/mL intramuscul ar syringe 01/26 completed Not Available Not Available Not Available levocetiriz ine 5 mg tablet TAKE 1 TABLET BY MOUTH EVERY DAY 03/02 completed Not Available Not Available Not Available 12 Hour Decongestan t ER 120 mg tablet,exte nded release TAKE 1 TABLET BY MOUTH EVERY 12 HOURS 03/01 completed Not Available Not Available Not Available Protonix 40 mg granules delayed-rel ease packet Take 1 packet every day by oral route. 03/02 completed Not Available Not Available Not Available cholecalcif jorge (vitamin D3) 125 mcg (5,000 unit) tablet TAKE 1 TABLET BY MOUTH EVERY DAY active Not Available Not Available No t Available potassium citrate ER 15 mEq (1,620 mg) tablet,exte nded release TAKE 1 TABLET BY MOUTH TWICE A DAY active Not Available Not Available No t Available Urocit-K 15 03/02 completed Not Available Not Available Not Available Gianvi (28) 3 mg-0.02 mg tablet Please specify direction s, refills and quantity active Not Available Not Available No t Available Probiotic active Not Available Not Linh ilable Not Available Xarelto 20 mg tablet TAKE 1 TABLET BY MOUTH EVERY DAY WITH EVENING MEAL 03/01 completed Not Available Not Available Not Available Xarelto DVT-PE Treatment 30-Day Starter 15 mg(42)-20 mg(9) tablet pack PLEASE SEE ATTACHED FOR DETAILED DIRECTION S 03/01 completed Not Available Not Available Not Available Flonase Allergy Relief 50 mcg/actuati on nasal spray,suspe nsion [place] 1 spray every day by intranasa l route. active Not Available Not Available No t Available duloxetine 40 mg capsule,del ayed release TAKE 1 CAPSULE BY MOUTH EVERY DAY 03/06 completed Not Available Not Available Not Available Blisovi 24 Fe 1 mg-20 mcg (24)/75 mg (4) tablet Take 1 tablet every day by oral route for 28 days. 10/08 completed Not Available Not Available Not Available Taytulla 1 mg-20 mcg (24)/75 mg (4) capsule Take 1 capsule every day by oral route. 09/15 completed Not Available Not Available Not Available Flucelvax Quad [id number] (PF) 60 mcg (15 mcg x 4)/0.5 mL IM syringe 01/26 completed Not Available Not Available Not Available Flucelvax Quad (PF) 60 mcg (15 mcg x 4)/0.5 mL IM syringe 01/26 completed Not Available Not Available Not Available ID NOW COVID-19 Test Kit TEST DIRECTED TODAY 03/01 completed Not Available Not Available Not Available Afluria Quad 60 mcg (15 mcg x 4)/0.5 mL intramuscul ar susp. 01/26 completed Not Available Not Available Not Available COVID-19 At-Home Test kit FOLLOW INSTRUCTI ONS INCLUDED WITH THE PACKAGE. active Not Available Not Available No t Available Vitals Date Recorded Body weight Heart rate Body temperature Systolic blood pressure Diastolic blood pressure Provider Name and Address Organization Details Last Updated DateTime 2 363357. 84 g 102 /min 95.2 [degF] 119 mm[Hg] 87 mm[Hg] [facility], 2 09:27:45 Date Recorded Body height Body mass index (BMI) Body weight Heart rate Body temperature Systolic blood pressure Diastolic blood pressure Provider Name and Address Organization Details Last Updated DateTime 3 167.64 cm 38.9 kg/m2 418263. 76 g 85 /min 97.6 [degF] 121 mm[Hg] 87 mm[Hg] [facility], 3 09:33:00 Date Recorded Body height Body mass index (BMI) Body weight Heart rate Body temperature Systolic blood pressure Diastolic blood pressure Provider Name and Address Organization Details Last Updated DateTime 4 167.64 cm 37.3 kg/m2 391358. 56 g 83 /min 96.9 [degF] 132 mm[Hg] 88 mm[Hg] [facility], 4 09:30:14 Date Recorded Body height Body mass index (BMI) Body weight Heart rate Body temperature Provider Name and Address Organization Details Last Updated DateTime 03/06/2025 167.64 cm 43.7 kg/m2 355914.5 3 g 83 /min 97.4 [degF] [facility], 5 09:53:14 Date Recorded Systolic blood pressure Diastolic blood pressure Provider Name and Address Organization Details Last Updated DateTime 03/06/2025 160 mm[Hg] 100 mm[Hg] [facility] F[facility], 03/06/2025 10:27:41 Date Recorded Body height Body mass index (BMI) Body weight Heart rate Body temperature Systolic blood pressure Diastolic blood pressure Provider Name and Address Organization Details Last Updated DateTime 5 167.64 cm 43.6 kg/m2 206296. 94 g 85 /min 96.5 [degF] 169 mm[Hg] 112 mm[Hg] Dave Johnson [facility], 5 15:52:24 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 Question Answer Notes LastModified by Organizat ion Details LastModified Time Tobacco Smoking Status Never Smoker Not Available [employer] 09/23/2020 03:20:23 Able To Swim? Yes Information not available 12/12/2017 Accident Related Injury No Information not available 12/12/2017 Do You Have An Advance Directive? No [id number] Information not available 09/23/2020 What Is Your Level Of Alcohol Consumption? Occasional [id number] Information not available 09/23/2020 How Many Years Have You Consumed Alcohol? 12 [id number] Information not available 09/23/2020 Animal Exposure? Yes Informat ion not available 12/12/2017 Are You Currently Sexually Active With Anyone Who Has Traveled (within The Last 12 Weeks) To A Zika-affected Area? No [id number] Information not available 09/23/2020 Do You Wear A Helmet When Biking? No [id number] Information not available 09/23/2020 Are You Blind Or Do You Have Difficulty Seeing? No [id number] Information not available 09/23/2020 What Is Your Level Of Caffeine Consumption? Occasional [id number] Information not available 09/23/2020 How Much Tobacco Do You Chew? None [id number] Information not available 09/23/2020 Concerns About Meeting Basic Needs (food, Housing, Heat, Etc)? No Information not available 12/12/2017 Are You Currently Employed? Yes [id number] Information not available 09/23/2020 Are You Deaf Or Do You Have Serious Difficulty Hearing? No [id number] Information not available 09/23/2020 What Type Of Diet Are You Following? REGULAR [id number] Information not available 09/23/2020 Which Illicit Or Recreational Drugs Have You Used? 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 Yes Information not available 12/12/2017 Have There Been Any Changes To Your Family Or Social Situation? No [id number] Information no t available 09/23/2020 Are There Any Guns Present In Your Home? Yes [id number] Information not available 09/23/2020 Hard Of Hearing Or Deaf In One Or Both Ears? No Information not available 12/12/2017 Legally Blind In One Or Both Eyes? No Information no t available 12/12/2017 Live Alone Or With Others? With Others Information not available 12/12/2017 Do You Have A Medical Power Of Fish Agent? No [id number] Information not available 09/23/2020 What Was The Date Of Your Most Recent Tobacco Screening? 12/18/2018 [id number] Information not available 09/23/2020 How Many Children Do You Have? 0 [id number] Information not available 09/23/2020 Performs Monthly Self-breast Exam? No Information no t available 12/12/2017 Do You Have Any Pets? Yes [id number] Information not available 09/23/2020 Difficulty Reading? No Information not available 12/12/2017 Seat Belts Used Routinely Yes Information not available 12/12/2017 Are You Sexually Active? Yes [id number] Information not available 09/23/2020 Smoke Alarm In Home Yes Information not available 12/12/2017 Do You Have Smoke And Carbon Monoxide Detectors In Your Home? Yes [id number] Information not available 09/23/2020 Are You Passively Exposed To Smoke? No Information no t available 12/12/2017 Are There Any Smokers In Your House? No Information not available 12/12/2017 How Much Tobacco Do You Smoke? No [id number] Information not available 09/23/2020 General Stress Level Medium Information not available 12/12/2017 Sun Exposure Occasional Information not available 12/12/2017 Do You Use Sunscreen Routinely? Yes [id number] Information not available 09/23/2020 TB Risk Low Information no t available 12/12/2017 Has Tobacco Cessation Counseling Been Provided? No [id number] Information not available 09/23/2020 Difficulty Watching TV? No Information not available 12/12/2017 Sex: Unknown Functional Status Question Answer Note LastModified by Organizat ion Details LastModified Time Do you have difficulty walking or climbing stairs? No [id number] Information not available 09/23/2020 Do you have transportation difficulties? No [id number] Information not available 09/23/2020 Are you able to walk? YESWOREST [id number] Information not available 09/23/2020 Do you have difficulty doing errands alone? No [id number] Information not available 09/23/2020 Are you able to care for yourself? Yes [id number] Information n ot available 09/23/2020 Do you have difficulty dressing or bathing? No [id number] Information not available 09/23/2020 What is your exercise level? Occasional [id number] Information not available 09/23/2020 Mental Status Question Answer Note LastModified by Organization D etails LastModified Time Do you have difficulty concentrating, remembering or making decisions? No [id number] Information no t available 09/23/2020 Family History Relationship Description Onset Age of this Age Resolved Age Notes LastModified by Organization Details LastModified Time Mother Hypertensive disorder [email or web address] Not available 12/12 11:47:55 Mother Diabetes mellitus [email or web address] Not available 12/12 11:48:11 Mother Family history of malignant neoplasm mantle cell lympho ma [email or web address] Not available 09/15/2020 08:26:46 Mother Kidney disease [email or web address] Not available 12/12 11:48:53 Mother Arthritis [email or web address] Not availa ble 12/12/2017 11:49:07 Mother Headache [email or web address] Not availab le 12/12/2017 11:49:26 Father Hypertensive disorder [email or web address] Not available 12/12 11:47:55 Father Heart disease [email or web address] Not available 12/12 11:48:23 Father Arthritis [email or web address] Not availa ble 12/12/2017 11:49:07 Father Headache [email or web address] Not availab le 12/12/2017 11:49:26 Brother Hypertensive disorder [email or web address] Not available 12/12 11:47:55 Sister Hypertensive disorder [email or web address] Not available 12/12 11:47:55 Sister Family history of malignant neoplasm cervic al cancer [email or web address] Not available 09/15/2020 08:26:46 Sister Headache [email or web address] Not availab le 12/12/2017 11:49:26 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 Condition Response Coronary Artery Disease N Other N Gout N Blood Diseases N Kidney Stones Y Hyperthyroidism N Enlarged Prostate N Blood Transfusion N COPD N Depression N Dermatologic Disorders N Gestational Diabetes N Anxiety Disorder N Autoimmune disease N Muscle, Joint, or Bone Problems N Obesity N Vision or Eye Problems N Arthritis N Infertility N Polyps N Mental Disorder N Cancer N Varicosities N Stroke N Neurologic/Epilepsy N Headaches N Fibromyalgia N Kidney Disease N Heart Problems N Ear or Hearing Problems N Hospitalizations N Acne N Eating Disorder N Skin Problems N MRSA exposure N Constipation N Heartburn N Art (IVF or FET) N Bladder Problems N Bleeding Disorder N Tuberculosis N AIDS/HIV N G.E.R.D N Asthma N Trauma/Violence N Hepatitis N Pulmonary Embolism N Chronic Ear Infections N Chicken Pox N Autism Spectrum Disorder (ASD) N Thrombophilias N Allergies (Food, seasonal, environmental ) N Colon Cancer N Drug/Latex Allergies/Reactions N Breast Cancer N Lung Disease N Hypothyroidism N Defects or Inherited Disease N Developmental or Behavioral Disorders N Breast Problem N Difficulty Swallowing N Hematologic disorders N Anesthesia Complications N History of STI N Deep Vein Thrombosis N Polycystic ovary syndrome N Meniere's disease N History of abnormal pap N Endometriosis N High Cholesterol N Liver Disease N Allergies/Hayfever N Kidney Problems N Thyroid Problems N GI Problems N ADD/ADHD N Anemia N Mental Illness N Psychiatric Illness N Diabetes N Ovarian Cancer N Pulmonary (TB, Asthma) N Seizures/Epilepsy N Congestive Heart Failure (CHF) N Hyperlipidemia N Eczema N Diverticulitis N Abuse/Domestic Violence N Depression/ depression N Heart Disease N Hypertension N Pre-Eclampsia N Osteoporosis N Gynecological History Statement/Question Response Abnormal Pap N Flow Heavy Date of Last Mammogram 06/13/2024 Date of LMP 02/14/2025 STIs/STDs N HPV Vaccine N Duration of Flow (days) 10 Age at Menarche 12 Current Control Method BCPs Frequency of Cycle (Q days) Sexually Active? Y Menses Monthly N Date of Last Pap Smear 03/06/2025 Sexual Problems? N Desired Control Method Ablation LMP Approximate Obstetrics History GPAL:G 0 P 0 0 0 0 Immunizations Vaccine Type Date Status Note Provider Nam e and Address Organization Details Recorded Time Influenza, split virus, quadrivalent, preservative 7 completed Not Available [facility] 12/29/2019 02:17:09 Past Encounters Encounter ID Performer Location Encounter Start Date Encounter Closed Date Diagnosis/Indication Diagnosis SNOMED-CT Code Diagnosis ICD10 Code Diagnosis Note [id number] Dandy Duque DO Main Office [address] [place] [address] 12/12/2017 10:53:18 12/12/2017 12:31:17 Gynecologic examination 88439507 Z01.411 Body mass index 30+ - obesity 728145058 Z68.35 Screening for malignant neoplasm of colon 105092520 Z12.11 Screening for mental disorders 259618290 Z13.89 Alcohol co nsumption screening 210745157 Z13.89 Contracept ion care management 266281333 Z30.9 [id number] Dandy Duque DO Main Office [address] [place] [address] 12/18/2018 13:19:35 12/18/2018 14:12:33 Renewal of prescription 059547359 Z76.0 Gynecologi c examination 64842950 Z01.411 pap Secondary dysmenorrhea 70288895 N94.5 Contraception care 69422 5005 Z30.41 Screening for malignant neoplasm of colon 948560941 Z12.11 Body mass index 30+ - obesity 716510636 Z68.32 [id number] Dandy Duque DO Main Office [address] [facility] [place] [address] 01/14/2020 10:28:34 01/14/2020 11:48:12 Gynecologic examination 60457596 Z01.411 pap Renewal of prescription 846093030 Z76.0 Secondary dysmenorrhea 38089540 N94.5 controlled Contraception care 48708 5005 Z30.41 [id number] Dandy Duque DO Main Office [address] [facility] [place] [address] 09/15/2020 08:26:11 09/15/2020 09:30:10 Irregular periods 19859127 N92.5 labs and u/s ordered Pain in pelvis 92235166 R10.2 Secondary dysmenorrhea 55768871 N94.5 controlled Break-thro ugh bleeding 24737530 N92.1 [id number] Dandy Duque DO Main Office [address] [place] [address] 09/22/2020 13:35:58 09/22/2020 14:23:12 Irregular periods 28592516 N92.0 Pain in pelvis 48713123 R10.2 Cyst of right ovary 1223 019906 5324784 N83.291 Menorrhagia 240371861 N9 2.0 [id number] Dandy Duque DO Main Office [address] [place] [address] 11/25/2020 09:27:34 11/25/2020 10:52:01 Abnormal uterine bleeding 9600284127 9100 N93.8 Pain in pelvis 62178509 R10.2 Cyst of right ovary 1223 901472 7019838 N83.291 Cyst of left ovary 16605 86601 8848084 N83.292 [id number] Dandy Duque DO Main Office [address] [place] [address] 01/26/2021 15:10:31 01/26/2021 16:10:47 Pain in pelvis 16007034 R10.2 resolved/c ontrolled Dryness of vulva 5653670 3 N90.89 Gynecologi c examination 07776897 Z01.411 pap Cyst of right ovary 1223 914312 2652730 N83.291 symptoms resolved Cyst of left ovary 58675 44492 9348816 N83.292 symptoms resolved Leukocytes in urine 2757 08797 R82.79 Screening for mental disorders 896127831 Z13.89 [id number] Dandy Duque DO Main Office [address] [place] [address] 03/01/2022 09:17:45 03/01/2022 10:00:18 Gynecologic examination 88252251 Z01.419 pap Renewal of prescription 443504657 Z76.0 Screening for mental disorders 860359375 Z13.89 [id number] Dandy Duque DO Main Office [address] [place] [address] 03/01/2023 09:17:53 03/01/2023 10:37:56 Gynecologic examination 63050543 Z01.411 pap Menorrhagia 562041249 N9 2.0 u/s, consider mirena or ablation Screening for mental disorders 841404086 Z13.89 Genetic sc reening for disorder 713862840 Z13.71 brac testing today Premenstru al tension syndrome 17842316 N94.3 [id number] Dandy Duque DO Main Office [address] [place] [address] 03/02/2024 09:21:06 03/02/2024 10:16:59 Renewal of prescription 510170116 Z76.0 Gynecologi c examination 58881095 Z01.411 pap. patient given phone # to schedule screening mammogram ([facility]) Screening for mental disorders 717944115 Z13.89 [id number] JASMINE Lira Main Office [address] [place] [address] 03/06/2025 09:45:36 03/06/2025 10:22:07 [facility] examination 429568780 Z01.411 pap. has had mammogram. Menorrhagia 230869460 N9 2.0 u/s, considerin g ablation Break-thro ugh bleeding 01636270 N92.1 Secondary dysmenorrhea 84934951 N94.5 Elevated blood-pressure reading without diagnosis of hypertension 950041170 R03.0 has doctors appt. tomorrow, will check then and check at home. has appt. with us for u/s 03/13, discussed ablation, will need to d/c ocps. [id number] Juan Espitia Main Office [address] [place] [address] 03/13/2025 15:47:12 03/13/2025 16:56:19 Health Concerns Section Related Observation LastModified by Organization Detai ls LastModified Time None Recorded Concern Status LastModified by Organization Details LastModified Time None Recorded Advance Directives Directive N: Payers Encounter Date Sequence Insurance Name Policy Number Policy Renee Covered Member ID Renee Member ID Guarantor Name 03/01/2022 1 [place] [id number] Celine Sandrine Dao [id number] Celine F Dao 03/01/2023 1 [place] [id number] Celine F Dao [id number] Celine F Dao 03/02/2024 1 [place] [id number] 0 Celine F Dao [id number] Celine F Dao Notes Date Note Type Note Provider Name and Address Organization Details Recorded Time 03/01/2022 text/html Annual GYNReport ed bypatient.History:no gynecologic complaints; no change in interval history Menstrual cycle:Normal menses Urinary symptoms:No hematuria; No incontinence Vulva:No genital lesion; c/o occasional vulvar dryness Vagina:Normal vaginal discharge Breast:No breast pain; No breast lump; No nipple discharge Current Contraception:Satisf ied with current contraception; Oral contraceptives Sexual complaints:No sexual complaints; No pain during intercourse; Normal libido Menopausal Symptoms:No menopausal symptoms; Normal vaginal lubrication Psychological symptoms:No depression; No anxiety; No PMDD Preventive measures:Followed with yearly pap smears Patient presents for annual. no problems or issues at this time DO [address], [place], [address], [facility], 04/18/2022 17:39:25 03/01/2023 text/html Annual GYNReport ed bypatient.History:he belinda periods (on ocp), some months heavier than others. Menstrual cycle:Menorrhagia Urinary symptoms:No hematuria; No incontinence Vulva:No genital lesion Vagina:Normal vaginal discharge Breast:No breast pain; No breast lump; No nipple discharge Sexual complaints:No sexual complaints; No pain during intercourse; Normal libido Menopausal Symptoms:No menopausal symptoms; Normal vaginal lubrication Psychological symptoms:No depression;Anxiety Preventive measures:Followed with yearly pap smears DO [address], [place], [address], [facility], 03/04/2023 21:16:59 03/02/2024 text/html Annual GYNReport ed bypatient.History:no gynecologic complaints; no change in interval history Menstrual cycle:Normal menses Urinary symptoms:No hematuria; No incontinence Vulva:No genital lesion Vagina:Normal vaginal discharge Breast:No breast pain; No breast lump; No nipple discharge Current Contraception:Satisf ied with current contraception; Oral contraceptives Sexual complaints:No sexual complaints; No pain during intercourse; Normal libido Menopausal Symptoms:No menopausal symptoms; Normal vaginal lubrication Psychological symptoms:No depression; No anxiety; No PMDD Preventive measures:Followed with yearly pap smears; Needs to schedule mammogram (for May) Dandy Duque, DO [address], [place], [address], [facility], 03/16/2024 20:21:04 OBGyn Episode No OBEpisode recorded.
== END 2025-03-16 23:59 | disposition home or self-care (01) ==
LOC: LAB 08:09
PROVIDERS: PCP Nurse Practitioner Family; Visit Provider Nurse Practitioner Family
DX: R63.5 Abnormal weight gain (principal); Z68.41 Body mass index [BMI] 40.0-44.9, adult; I10 Essential (primary) hypertension; R23.2 Flushing
CPT/HCPCS: 36415; 82533

== ENCOUNTER 2025-05-09 12:52 | Outpatient (CLI) | payer BC, SELFPAY ==
--- OUTSIDE RECORDS SUMMARY | 2025-04-30 14:38 | XMS_ITS | Encounter Summary ---
Author Organization [facility] [email or web address] Address [address] [place] [address] Care Team Providers Care Asbestos Abatement Worker Name Role Phone Tyrell Magana MD Primary Care Provider +1- [phone] Encounter Details Date Type Department Care Team (Latest Contact Info) Description 04/30/2025 2:38 PM EDT - 04/30/2025 3:53 PM EDT Hospital Encounter [facility] Preadmission Testing [address] [facility] [address] [place] [address] Dandy Duque MD [address] [facility] [address] [place] [address] Pre-op testing (Primary Dx); RLS (restless legs syndrome) Discharge Disposition: Home or Self Care 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 Tobacco Use Types Packs/Day Years Used Date Smoking Tobacco: Never Smokeless Tobacco: Never Alcohol Use Standard Drinks/Week Comments Not Currently 0 (1 standard drink = 0.6 oz pur e alcohol) RARELY Interpersonal Safety Answer Date Record ed Family or friends hurt you Not on file 12/16 Family or friends insult you Not on file Family or friends threaten you Not on file 0 12/16/2023 Family or friends scream or curse at you Not on file 12/16/2023 Housing Stability Answer Date Recorded Living situation today Not on file Living situation problems Not on file 2023 Family and Community Support Answer Apolinar e Recorded Help with Day to Day Activities Not on file 12/16/2023 Feeling Lonely or Isolated Not on file 12/16 Educational Attainment Answer Date Surinder rded Speak language other than Chilean at home Not on file 12/16/2023 Want help with school or training Not on file 12/16/2023 Depression Answer Date Recorded PHQ-2 Risk Not on file 12/16/2023 Disabilities Answer Date Recorded Difficulty concentrating Not on file 024 Difficulty doing errands alone Not on file 0 12/16/2023 Substance Use Answer Date Recorded Used [...] ARTHRITIS 10/29/2023 metFORMIN (GLUCOPHAGE) 500 MG tablet pantoprazole (PROTONIX) 40 MG tablet Take 1 tablet (40 mg total) by mouth daily. potassium citrate (Urocit-K 15) 15 mEq TbER 10/29/2023 propranoloL (Inderal LA) 60 MG 24 hr capsule 03/24/2023 rOPINIRole (REQUIP) 0.25 MG tabletIndication s:restless leg syndrome Take 4 tablets (1 mg total) by mouth daily. 10/29/2023 zafirlukast (Accolate) 20 MG tablet 10/29/2023 Missing or Non-Formulary Medication PROBIOTIC. multivit with calcium,iron,min (MULTIVITAMIN-CA LCIUM AND IRON ORAL) 10/29/2023 norethindrone-et hinyl estradiol-iron (Junel FE 1.5/30, 28,) 1.5 mg-30 mcg (21)/75 mg (7) per tablet 10/29/2023 b complex vitamins tablet Take 1 tablet by mouth daily. cyclobenzaprine (FLEXERIL) 5 MG tablet Take 1 tablet (5 mg total) by mouth 2 (two) times daily. 10/29/2023 nitrofurantoin, macrocrystal-mon ohydrate, (MACROBID) 100 MG capsule [...] BILATERAL ESWL; Surgeon: Hira Rider MD; Location: [facility]; Service: Urology; Laterality: Bilateral; ESWL CONF #: [id number] SPOKE TO ARUN SINUS SURGERY X 2 [...] 14 capsule 0 norethindrone-ethinyl estradiol-iron (Junel FE .,) 1.5 mg-30 mcg (21)/75 mg (7) per [...] 82 BPM ATRIAL RATE (MCT) 82 BPM [place] Interval 170 ms QRS-INTERVAL (MSEC) 92 ms QT Interval 354 ms QTC Interval 413 ms P Kake 55 degrees R AXIS (MCT) 69 degrees T Wave Kake 65 degrees [place] Diagnosis Normal sinus rhythm Normal ECG Confirmed [...] electronically signed by Nithin Matamoros MD Voice mail list processor technology ([employer]) is used for the dictation of this note and sound-alike words might be erroneously placed despite reviewing this note for accuracy. Errors in dictation may reflect use of voice recognition software and not all errors in mail list processor may have been detected prior to signing. [...] Deepa Goyal RN - 04/30/2025 3:00 PM Ora: MEDICATION INSTRUCTIONS Medication List ASK your doctor [...] Notes to patient: PROBIOTIC - STOP TODAY 6 MULTIVITAMIN-CALCIUM AND IRON ORAL Medication Adjustments for Surgery: Other (Comment) Notes to patient: STOP TODAY 6 nitrofurantoin (macrocrystal-monohydrate) 100 MG capsule Commonly known [...] electronically signed by Nithin Matamoros MD Voice mail list processor technology (Power Scribe) is used for the dictation of this note and sound-alike words might be erroneously placed despite reviewing this note for accuracy. Errors in dictation may reflect use of voice recognition software and not all errors in mail list processor may have been detected prior to signing. [...] electronically signed by Nithin Matamoros MD Voice mail list processor technology ([employer]) is used for the dictation of this note and sound-alike words might be erroneously placed despite reviewing this note for accuracy. Errors in dictation may reflect use of voice recognition software and not all errors in mail list processor may have been detected prior to signing. us Dandy Duque MD IMG DIAGNOSTIC IMAGING ORDERA BLES Final Result * Screen, urine (04/30/2025 3:08 PM EDT) Preg Test, Ur Negative Negative, Inconclusive 04/30/2025 3:26 PM EDT [facility] Urine 04/30/2025 3:08 PM EDT 04/30/2025 3:08 PM EDT us Dandy Duque MD URINE ORDERABLES Final Result Performing Organization Address City/State/[facility] Co de Phone Number [facility] [address] [phone] * (ABNORMAL) Comprehensive metabolic panel (04/30/2025 3:07 PM EDT) Sodium 138 136 - 146 meq/L 04/30/2025 3:32 PM EDT [facility] Potassium 3.9 3.5 - 5.1 meq/L 04/30/2025 3:32 PM EDT [facility] Chloride 102 102 - 112 meq/L 04/30/2025 3:32 PM EDT [facility] CO2 28 21 - 32 meq/L 04/30/2025 3:32 PM [facility] Calcium 9.6 8.5 - 10.1 mg/dL 04/30/2025 3:32 PM [facility] Glucose 105 74 - 106 mg/dL 04/30/2025 3:32 PM [facility] BUN 11 7 - 22 mg/dL 04/30/2025 3:32 PM [facility] Creatinine 0.85 0.55 - 1.02 mg/dL 04/30/2025 3:32 PM [facility] BUN/Creatinine 13 8 - 20 04/30/2025 3:32 PM [facility] Albumin 3.5 3.4 - 5.0 g/dL 04/30/2025 3:32 PM [facility] Alkaline Phosphatase 50 27 - 136 U/L 04/30/2025 3:32 PM [facility] ALT 54 12 - 78 U/L 04/30/2025 3:32 PM [facility] AST 46(H) 5 - 37 U/L 04/30/2025 3:32 PM [facility] Total Bilirubin 0.2 0.2 - 1.3 mg/dL 04/30/2025 3:32 PM [facility] Protein, Total 7.0 6.4 - 8.2 gm/dL 04/30/2025 3:32 PM [facility] Anion Gap 12 9 - 20 04/30/2025 3:32 PM [facility] A/G Ratio 1.0(L) 1.1 - 2.5 04/30/2025 3:32 PM [facility] Globulin 3.5 1.5 - 4.5 g/dL 04/30/2025 3:32 PM [facility] Osmolality Calc 275.4 mOsm/kg 3:32 PM [facility] eGFR (mL/min/1.73m2) >60 >=60 mL/min/1.7 3m2 04/30/2025 3:32 PM [facility] Comment:ESTIMATED GFR IS NOT ACCURATE CREATININE CLEARANCE IN PREDICTING GLOMERULAR FILTRATION RATE. ESTIMATED GFR IS NOT APPLICABLE FOR DIALYSIS PATIENTS. Blood Venipuncture / Unknown 04/30/2025 3:07 PM EDT 04/30/2025 3:07 PM EDT Dandy Duque MD LAB BLOOD ORDERABLES Final Re sult [facility] [address] [place], [place] [address] [phone] * CBC with automated diff (04/30/2025 3:07 PM EDT) WBC 9.2 3.9 - 10.0 K/ L 04/30/2025 3:22 PM EDT [facility] RBC 4.59 3.93 - 5.22 M/ L 04/30/2025 3:22 PM EDT [facility] Hemoglobin 13.7 11.2 - 15.7 GM/DL 04/30/2025 3:22 PM EDT [facility] Hematocrit 41.8 34.1 - 44.9 % 04/30/2025 3:22 PM EDT [facility] MCV 91 79 - 95 fL 04/30/2025 3:22 PM EDT [facility] MCH 29.8 25.6 - 32.2 pg 04/30/2025 3:22 PM EDT [facility] MCHC 32.8 32.2 - 36.5 GM/DL 04/30/2025 3:22 PM EDT [facility] RDW 14.3 11.6 - 14.4 % 04/30/2025 3:22 PM EDT [facility] Platelets 345 163 - 369 K/CU MM 04/30/2025 3:22 PM EDT [facility] MPV 9.4 9.4 - 12.4 fL 04/30/2025 3:22 PM EDT [facility] % Neutros 52 34 - 71 % 04/30/2025 3:22 PM EDT [facility] % Lymphs 37 19 - 53 % 04/30/2025 3:22 PM EDT [facility] % Monos 8 4 - 13 % 04/30/2025 3:22 PM EDT [facility] % Eos 2 1 - 7 % 04/30/2025 3:22 PM EDT [facility] % Baso 0 0 - 1 % 04/30/2025 3:22 PM EDT [facility] # Neutros 4.80 1.56 - 6.13 K/ L 04/30/2025 3:22 PM EDT [facility] # Lymphs 3.39 1.18 - 3.74 K/ L 04/30/2025 3:22 PM EDT [facility] # Monos 0.71 0.24 - 0.82 K/ L 04/30/2025 3:22 PM EDT [facility] # Eos 0.20 0.04 - 0.54 K/ L 04/30/2025 3:22 PM EDT [facility] # Baso 0.04 0.01 - 0.08 K/ L 04/30/2025 3:22 PM EDT [facility] Immature Granulocytes-Re lative 0.40 0.00 - 0.60 % 04/30/2025 3:22 PM EDT [facility] # IG 0.04 0.00 - 0.05 K/uL 04/30/2025 3:22 PM EDT [facility] Blood Venipuncture / Unknown 04/30/2025 3:07 PM EDT 04/30/2025 3:07 PM EDT Narrative [facility] - 04/30/2025 3:22 PM EDT [...] Blast? Flag noted Atypical Lymph flag noted us Dandy Duque MD LAB BLOOD ORDERABLES Final Re sult [facility] [address] [employer] [address] [phone] * ECG 12 lead (04/30/2025 1:59 PM EDT) VENTRICULAR RATE EKG/MIN 82 BPM GE MUSE ATRIAL RATE (MCT) 82 BPM GE MUSE [place] Interval 170 ms GE MUSE QRS-INTERVAL (MSEC) 92 ms GE MUSE QT Interval 354 ms GE MUSE QTC Interval 413 ms GE MUSE P Kake 55 degrees GE MUSE R AXIS (MCT) 69 degrees GE MUSE T Wave Kake 65 degrees GE MUSE [place] Diagnosis Normal sinus rhythm Normal ECG Confirmed [...] (RLS) documented in this encounter Care Teams Asbestos Abatement Worker Relationship Specialty Start Date End Date Tyrell Magana MD [address] [place] [address] PCP - General Family Medicine 11/15/23 documented as of this encounter
--- OUTSIDE RECORDS SUMMARY | 2025-04-30 15:54 | XMS_ITS | Encounter Summary ---
Author Organization [employer] Address [address] [place] [address] Care Team Providers Care Counter Cutter Name Role Phone Tyrell Magana MD Primary Care Provider [phone]- [phone] Encounter Details Date Type Department Care Team (Latest Contact Info) Description 04/30/2025 3:54 PM EDT - 04/30/2025 11:59 PM EDT Hospital Encounter [facility] [address] [place] [address] Dandy Duque MD [address] [facility] [address] [place] [address] Discharge Disposition: Home or Self Care Social [...] Date Surinder rded Speak language other than Emir[place] at home Not on file 12/16/2023 Want [...] electronically signed by Nithin Matamoros MD Voice foreclosure field inspector technology (Power Scribe) is used for the dictation of this note and sound-alike words might be erroneously placed despite reviewing this note for accuracy. Errors in dictation may reflect use of voice recognition software and not all errors in foreclosure field inspector may have been detected prior to signing. [...] electronically signed by Nithin Matamoros MD Voice foreclosure field inspector technology (Power Scribe) is used for the dictation of this note and sound-alike words might be erroneously placed despite reviewing this note for accuracy. Errors in dictation may reflect use of voice recognition software and not all errors in foreclosure field inspector may have been detected prior to signing. Dandy Duque MD [facility] Final Result documented in this encounter Visit Diagnoses Not on filedocumented in this encounter Care Teams Counter Cutter Relationship Specialty Start Date End Date Tyrell Magana MD [address] [place] [id number] PCP - General Family Medicine 11/15/23 documented as of this encounter
--- OUTSIDE RECORDS SUMMARY | 2025-05-06 09:19 | XMS_ITS | Encounter Summary ---
Author Organization [employer] Address [address] [place] [address] Care Team Providers Care Installation And Repair Technician Name Role Phone Tyrell Magana MD Primary Care Provider [phone]- [phone] Reason for Visit * Auth/Cert (Routine) Specialty Diagnoses / Procedures Referred By Bao bautista Referred To Contact Diagnoses Excessive or frequent menstruation Encounter for gynecological examination with abnormal finding Excessive, frequent and irregular menstruation Secondary dysmenorrhea N92.0 Z01.411 N92.1 N94.5 Procedures PA HYSTEROSCOPY ENDOMETRIAL ABLATION PA LAPS FULG/EXC OVARY VISCERA/PERITONEAL SURFACE ROBOTIC LAPAROSCOPY,RESECTION ENDOMETRIAL ABLATION, ENDOMETRIUM Justice Miller MD [address] [facility] [address] [place] [address] Phone: tel: fax: Referral ID Status Reason Start Date Expiration Date Visits Re quested Visits Authorized [id number] 03/14/2025 1 1 Encounter Details Date Type Department Care Team (Latest Contact Info) Description 05/06/2025 9:19 AM EDT - 05/06/2025 3:19 PM EDT Hospital Encounter [facility] Surgery Department [address] [place] [address] [place] Miller MD 170 [facility] [address] [place] [address] Excessive or frequent menstruation; Encounter for gynecological [...] Date Surinder rded Speak language other than Paraguayan at home Not on file 12/16/2023 Want [...] Everywhere. * General Anesthesia Adult Care After (Paraguayan) * Diagnostic Laparoscopy Care After (Paraguayan) * Endometrial Ablation Care After (Paraguayan) documented in this encounter Medications at Time [...] mcg (21)/75 mg (7) per tablet 10/29/2023 documented as of this encounter H&P Notes * Justice Miller MD - 05/06/2025 12:52 PM EDT History of Present Illness History Of Present Illness Celine Dc is a 39 y.o. female presenting with [...] wave (eswl) (Bilateral, 11/17/2023); Kidney stone surgery; [place] tooth extraction; Sinus surgery; Colon surgery; and [...] 2 times daily norethindrone-ethinyl estradiol-iron (Junel FE .04/26, ,) 1.5 mg-30 mcg (21)/75 mg (7) [...] ATRIAL RATE (MCT) 04/30/2025 82 BPM Final [place] Interval 04/30/2025 170 ms Final QRS-INTERVAL (MSEC) 04/30/2025 92 ms Final QT Interval 04/30/2025 354 ms Final QTC Interval 04/30/2025 413 ms Final P [place] 04/30/2025 55 degrees Final R AXIS (MCT) 04/30/2025 69 degrees Final T Wave [place] 04/30/2025 65 degrees Final [place] Diagnosis 04/30/2025 Final Value:Normal sinus rhythm Normal [...] electronically signed by Nithin Matamoros MD Voice operating theatre technician technology (Power Scribe) is used for the dictation of this note and sound-alike words might be erroneously placed despite reviewing this note for accuracy. Errors in dictation may reflect use of voice recognition software and not all errors in operating theatre technician may have been detected prior to signing. Assessment & Plan AUB Pelvic pain Dysmenorrhea Bmi Laparoscopy Hsc d/c endometrial ablation Electronically signed by: [place] Miller MD, 05/06/2025 at 12:52 PM documented in this encounter Plan of Treatment Not on file documented as of this encounter Procedures Procedure Name Priority Date/Time Associated Diagnosis Comments NOVA GLUCOSE POC Routine 05/06/2025 2:12 PM EDT TISSUE EXAM [facility] AP Routine 05/06/2025 1:43 PM EDT Excessive or frequent menstruation Encounter for gynecological examination with abnormal finding Excessive, frequent and irregular menstruation Secondary dysmenorrhea PA HYSTEROSCOPY ENDOMETRIAL ABLATION 05/06/2025 12:58 PM EDT Excessive or frequent menstruation Encounter for gynecological examination with abnormal finding Excessive, frequent and irregular menstruation Secondary dysmenorrhea Case Notes This case needs to be Robotic per TEJAS Love PA LAPS ABD PRTM&OMENTUM DX W/WO SPEC BR/WA SPX 05/06/2025 12:58 PM EDT Excessive or frequent menstruation Encounter for gynecological examination with abnormal finding Excessive, frequent and irregular menstruation Secondary dysmenorrhea Case Notes This case needs to be Robotic per TEJAS Love EKG-SCANNED 05/06/2025 documented in this encounter Results * Glucose, Nova Meter (05/06/2025 2:12 PM EDT) [facility] POC-GLUCOSE 104 70 - 110 mg/dL 05/06/2025 2:13 PM EDT [facility] Comment: In the event of poor peripheral blood flow, venous or arterial blood should be used due to the potential of erroneous results. No action Require Student Services Counselor [id number] 05/06/2025 2:13 PM EDT [facility] Blood WHOLE BLOOD / Unknown 05/06/2025 2:12 PM EDT 05/06/2025 2:13 PM EDT Narrative [facility] - 05/06/2025 2:13 PM EDT Student Services Counselor ID is - [id number] [place] Miller MD POINT OF CARE TEST ORDERABLES Final Result [facility] [address] [place] [address] [phone] * Tissue Exam (05/06/2025 1:43 PM EDT) [facility] AP RESULT See Note: [facility] Comment: [facility] [address] [place] [address] or [phone] Heath Pruett M.D., Mixer And Scaler PATIENT NAME LABORATORY NO. CELINE BAUTISTA. [id number] AGE SEX SSN CLIENT REF # [facility] 39 1985 F [id number] [address] REQUESTING Gustavo [place] [address] JUSTICE MILLER DATE COLLECTED DATE RECEIVED DATE [...] rendered by Ailyn Siddiqui M.D., F.C.A.P. at [employer], [facility], [address] [place] [address]. GROSS DESCRIPTION: Labeled endometrial curettings consists of multiple pieces of rocha-brown soft tissue measuring 3.0 x 2.5 x 0.6 cm in aggregate. Specimens are filtered and submitted entirely in 3 blocks. BKO REVIEWED, DIAGNOSED AND ELECTRONICALLY SIGNED BY: Ailyn Siddiqui M.D., F.C.A.P. CPT CODES: [id number] Tissue SPECIMEN FROM ENDOMETRIUM OBTAINED BY CURETTAGE / Unknown 05/06/2025 1:43 PM EDT Justice Miller MD PATHOLOGY/CYTOLOGY ORDERABLES Final Result [facility] [address] [place] [address] * EKG-SCANNED (05/06/2025) Narrative 05/06/2025 Ordered by [...] MD) documented in this encounter Care Teams Installation And Repair Technician Relationship Specialty Start Date End Date Tyrell Magana MD [address] [place] [address] [place] [address] PCP - General Family Medicine 11/15/23 documented as of this encounter
--- OUTSIDE RECORDS SUMMARY | 2025-05-06 12:00 | XMS_ITS | Encounter Summary ---
Author Organization [facility] Address [address] [place] [address] Care Team Providers Care Unloader Name Role Phone Tyrell Magana MD Primary Care Provider +1- [phone] Reason for Visit * Auth/Cert (Routine) Specialty Diagnoses / Procedures Referred By Bao bautista Referred To Contact Diagnoses Excessive or frequent menstruation Encounter for gynecological examination with abnormal finding Excessive, frequent and irregular menstruation Secondary dysmenorrhea N92.0 Z01.411 N92.1 N94.5 Procedures [place] HYSTEROSCOPY ENDOMETRIAL ABLATION [place] LAPS FULG/EXC OVARY VISCERA/PERITONEAL SURFACE ROBOTIC LAPAROSCOPY,RESECTION ENDOMETRIAL ABLATION, ENDOMETRIUM Justice Miller MD [address] [facility] [address] [place] [address] Phone: tel: fax: Referral ID Status Reason Start Date Expiration Date Visits Re quested Visits Authorized [id number] 03/14/2025 1 1 Encounter Details Date Type Department Care Team (Late st Contact Info) Description 05/06/2025 12:00 PM EDT - 05/06/2025 1:52 PM EDT Surgery [facility] Surgery Department [address] [place] [address] Justice Miller MD [address] [facility] [address] [place] [address] Diagnostic LAPAROSCOPY, ENDOMETRIAL ABLATION 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 Tobacco [...] Date Surinder rded Speak language other than Gabonese at home Not on file 12/16/2023 Want [...] Everywhere. * General Anesthesia Adult Care After (Gabonese) * Diagnostic Laparoscopy Care After (Gabonese) * Endometrial Ablation Care After (Gabonese) documented in this encounter Medications at Time [...] ORAL) 10/29/2023 norethindrone-et hinyl estradiol-iron (Junel FE 1.5/, 28,) 1.5 mg-30 mcg (21)/75 mg (7) [...] wave (eswl) (Bilateral, 11/17/2023); Kidney stone surgery; [place] tooth extraction; Sinus surgery; Colon surgery; and [...] ATRIAL RATE (MCT) 04/30/2025 82 BPM Final [place] Interval 04/30/2025 170 ms Final QRS-INTERVAL (MSEC) 04/30/2025 92 ms Final QT Interval 04/30/2025 354 ms Final QTC Interval 04/30/2025 413 ms Final P [place] 04/30/2025 55 degrees Final R AXIS (MCT) 04/30/2025 69 degrees Final T Wave [place] 04/30/2025 65 degrees Final [place] Diagnosis 04/30/2025 Final Value:Normal sinus rhythm Normal [...] electronically signed by Nithin Matamoros MD Voice systems navigator technology (Power Scribe) is used for the dictation of this note and sound-alike words might be erroneously placed despite reviewing this note for accuracy. Errors in dictation may reflect use of voice recognition software and not all errors in systems navigator may have been detected prior to signing. Assessment & Plan AUB Pelvic pain Dysmenorrhea Bmi Laparoscopy Hsc d/c endometrial ablation Electronically signed by: Justice Miller MD, 05/06/2025 at 12:52 PM documented in this encounter Plan of Treatment Not on file documented as of this encounter Procedures Procedure Name Priority Date/Time Associated Diagnosis Comments NOVA GLUCOSE POC Routine 05/06/2025 2:12 PM EDT TISSUE EXAM [facility] AP Routine 05/06/2025 1:43 PM EDT Excessive or frequent menstruation Encounter for gynecological examination with abnormal finding Excessive, frequent and irregular menstruation Secondary dysmenorrhea [place] HYSTEROSCOPY ENDOMETRIAL ABLATION 05/06/2025 12:58 PM EDT Excessive or frequent menstruation Encounter for gynecological examination with abnormal finding Excessive, frequent and irregular menstruation Secondary dysmenorrhea Case Notes This case needs to be Robotic per TEJAS Love [place] LAPS ABD PRTM&OMENTUM DX W/WO SPEC BR/WA [...] - 110 mg/dL 05/06/2025 2:13 PM EDT [facility] Comment: In the event of poor peripheral blood flow, venous or arterial blood should be used due to the potential of erroneous results. No action Require Communication Electronic Technician [id number] 05/06/2025 2:13 PM EDT [facility] Blood WHOLE BLOOD / Unknown 05/06/2025 2:12 PM EDT 05/06/2025 2:13 PM EDT Narrative [facility] - 05/06/2025 2:13 PM EDT Communication Electronic Technician ID is - [id number] Justice Miller MD POINT OF CARE TEST ORDERABLES Final Result [facility] [address] [place] [address], [facility] [phone] * Tissue Exam (05/06/2025 1:43 PM EDT) AP RESULT See Note: [facility] Comment: [facility] [address] [place] [address] or [phone] Heath Pruett M.D., Corporate Sales Trainer PATIENT NAME LABORATORY NO. [address]CELINE JEFFERS. [id number] AGE SEX SSN CLIENT REF # [facility] Frances 1985 F [id number] [address] REQUESTING M.Patricia. [place] [address] JUSTICE MILLER DATE COLLECTED DATE RECEIVED DATE [...] rendered by Ailyn Siddiqui M.D., F.C.A.P. at [employer], [address] [place] [address]. GROSS DESCRIPTION: Labeled endometrial curettings consists of multiple pieces of rocha-brown soft tissue measuring 3.0 x 2.5 x 0.6 cm in aggregate. Specimens are filtered and submitted entirely in 3 blocks. BKO REVIEWED, DIAGNOSED AND ELECTRONICALLY SIGNED BY: Ailyn Siddiqui M.D., F.C.A.P. CPT CODES: [id number] Tissue SPECIMEN FROM ENDOMETRIUM OBTAINED BY CURETTAGE / Unknown 05/06/2025 1:43 PM EDT Justice Miller MD PATHOLOGY/CYTOLOGY ORDERABLES Final Result [facility] [address] [place] [address] * EKG-SCANNED (05/06/2025) Narrative 05/06/2025 Ordered by [...] MD) documented in this encounter Care Teams Unloader Relationship Specialty Start Date End Date Tyrell Magana MD [address] [place] [address] [place] [address] PCP - General Family Medicine 11/15/23 documented as of this encounter
--- OUTSIDE RECORDS SUMMARY | 2025-05-06 12:59 | XMS_ITS | Encounter Summary ---
Author Organization [employer] Address [address] [place] [address] Care Team Providers Care Central Supply Nurse Name Role Phone Tyrell Magana MD Primary Care Provider [phone]- [phone] Reason for Visit * Auth/Cert (Routine) Specialty Diagnoses / Procedures Referred By Bao bautista Referred To Contact Diagnoses Excessive or frequent menstruation Encounter for gynecological examination with abnormal finding Excessive, frequent and irregular menstruation Secondary dysmenorrhea N92.0 Z01.411 N92.1 N94.5 Procedures [place] HYSTEROSCOPY ENDOMETRIAL ABLATION MA LAPS FULG/EXC OVARY VISCERA/PERITONEAL SURFACE ROBOTIC LAPAROSCOPY,RESECTION ENDOMETRIAL ABLATION, ENDOMETRIUM Dandy Duque MD [address] [facility] [address] [place] [address] Phone: tel: fax: Referral ID Status Reason Start Date Expiration Date Visits Re quested Visits Authorized [id number] 03/14/2025 1 1 Encounter Details Date Type Department Care Team (Late st Contact Info) Description 05/06/2025 12:59 PM EDT Anesthesia Event [facility] Surgery Department [address] [place] [address] Chery Gill CRNA [address] [place] [address] Efren Mcfarland MD [address] [place], [place] [id number] Anesthesia Record Procedure Summary Procedure Name Responsible Anesthesiologist Anesthesia Start Time Anesthesia Stop Time Diagnostic LAPAROSCOPY, ENDOMETRIAL ABLATION Chery Gill CRNA 05/06/25 1259 05/06/25 1410 Events Date Time Event Comment 05/06/2025 1014 1259 An Start Patient identif ied and chart reviewed. 1259 An Start Data Anesthesia mac abby and monitors checked. 1302 Pre-Induction Eval FDA anest hesia machine pre-use checkout completed. Patient status reassessed prior to start of anesthesia care. 1304 An Induction 1306 An Intubation 1310 Anesthesia Ready 1359 An Extubation 1409 an stop data 1409 Handoff to Receiving I compl eted my handoff to the receiving clinician during which we: 1. Identified the patient. 2. Identified the responsible provider. 3. Reviewed the pertinent medical history. 4. Discussed the surgical course. 5. Reviewed intra-op anesthesia management and issues during anesthesia. 6. Set expectations for post-procedure period. 7. Allowed opportunity for questions and acknowledgement of understanding. 1410 An Stop Meds Name Total dexamethasone (DECADRON) injection 4 mg/ mL 8 mg fentaNYL (SUBLIMAZE) injection 100 mcg lidocaine (XYLOCAINE) injection 2% 100 m g ondansetron (ZOFRAN) injection vial 4 mg propofol (DIPRIVAN) injection 10 mg/mL b olus 300 mg rocuronium (ZEMURON) 100 mg/10 mL inject ion 50 mg aztreonam (AZACTAM) 2 g in sodium chlori de 0.9 % (NS) MBP IVPB Cannot be calculated clindamycin (CLEOCIN) IVPB 900 mg in dex trose 5 % 50 mL (premix) Cannot be calculated electrolyte-R (NORMOSOL-R) infusion 90 m L sugammadex (BRIDION) injection 200 mg ketorolac (TORADOL) injection 30 mg/mL 1 5 mg * Agents Name O2 N2O Air SEVOFLURANE * Blood No blood administrations on file. Lines, Drains, and Airways Type Details Placement Removal Wound 05/06/25; 1326; Inci mercy; Abdomen; Not applicable; sites x 3 05/06/25 1326 by Roberto Carlos Aviles RN Wound 05/06/25; 1326; Inci mercy; Perineum; Not applicable; mesh panty 05/06/25 1326 by Roberto Carlos Aviles RN Peripheral IV Placement Date: 08/22; Placement Time: 1020; Size: 20 G; Orientation: Right; Location: Antecubital; Site Prep: Chlorhexidine ; Insertion attempts: 1; Securement Method: Taped; Removal Date: 05/06/25; Removal Time: 1519; Removal Reason: Per order 05/06/25 1020 by Sindy Arteaga RN 05/06/25 1519 by Kareen Vazquez RN ETT Placement Date 05/06; Placement Time 1306 (created via procedure documentation); Airway Size 7; Airway Cuffed Yes; Removal Date 05/06/25; Removal Time 1409 05/06/25 1306 by Chery Gill CRNA 05/06/25 1409 by Chery Gill CRNA documented in this encounter 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 Tobacco Use Types Packs/Day Years [...] Date Surinder rded Speak language other than Serbian at home Not on file 12/16/2023 Want [...] on file documented as of this encounter OR Notes * Anesthesia Postprocedure Evaluation - Chery Gill CRNA - 05/06/2025 2:10 PM EDT Patient: Celine Dc Procedure Summary Date: 05/06/25 Room / Location: [facility] OR [facility] OPERATING ROOM Anesthesia Start: 1259 Anesthesia Stop: Procedures: Diagnostic LAPAROSCOPY, ENDOMETRIAL ABLATION ABLATION, ENDOMETRIUM Diagnosis: Excessive or frequent menstruation Encounter for gynecological examination with abnormal finding Excessive, frequent and irregular menstruation Secondary dysmenorrhea (N92.0 Z01.411 N92.1 N94.5) Surgeons: Dandy Duque MD Responsible Provider: Chery Gill CRNA Anesthesia Type: general ASA Status: 3 Anesthesia Type: general Vitals Value Taken Time BP 141/82 05/06/25 1408 Temp 98 05/06/25 1410 Pulse 92 05/06/25 1410 Resp 15 05/06/25 1410 SpO2 93 % 05/06/25 1410 Vitals shown include unfiled device data. Wt 119.9 kg (264 lb 6.4 oz) LMP 04/08/2025 (Exact Date) BMI 42.68 kg/m?? Anesthesia Post Evaluation Chery Gill CRNA 05/06/2025 2:10 PM EDT * Anesthesia Procedure Notes - Chery Gill CRNA - 05/06/2025 1:14 PM EDT Associated Order(s): Intubation Intubation Authorized by: Chery Gill CRNA Performed by: Chery Gill CRNA Date/Time: 05/06/2025 1:06 PM Urgency: elective Indications and Patient Condition Indications for airway management: anesthesia and airway protection Spontaneous Ventilation: absent Sedation level: general anesthesia Preoxygenated: yes Patient position: sniffing no Mask difficulty assessment: 2 - vent by mask + OA or adjuvant +/- NMBA no Final Airway Details Final airway type: endotracheal airway Endotracheal tube type: ETT Cuffed: yes Successful intubation technique: direct laryngoscopy Endotracheal tube insertion site: oral Blade: Welch Blade size: #2 ETT size (mm): 7.0 Cormack-Lehane Classification: grade I - full view of glottis Placement verified by: chest auscultation and capnometry Measured from: lips ETT to lips (cm): 22 Number of attempts at approach: 1 Number of other approaches attempted: 0 * Anesthesia Preprocedure Evaluation - Babita Bennett MD - 05/06/2025 10:13 AM EDT Anesthesia Pre Evaluation Ms. Celine Dc is a 39 y.o. female being evaluated for the following: Date/Time: 05/06/25 1200 Procedures: ROBOTIC LAPAROSCOPY, ENDOMETRIAL ABLATION Special Equipment ABLATION, ENDOMETRIUM Location: [facility] OR [address] [place] [address] OPERATING ROOM Surgeons: Dandy Duque MD Relevant Problems ANESTHESIA (+) CON (obstructive sleep apnea) CARDIOVASCULAR (+) HTN (hypertension) ENDOCRINE (+) Diabetes mellitus, type 2 (HCC) GASTROINTESTINAL (+) GERD (gastroesophageal reflux disease) /RENAL (within normal limits) NEURO/PSYCH (+) Migraines RESPIRATORY SYSTEM (within normal limits) Clinical information reviewed: NPO Status Date of last liquid: 05/05/25 Time of last liquid: 2199 Date of last solid: 05/05/25 Time of last solid: 2199 Physical Exam Airway Mallampati: II TM distance: >3 FB Neck ROM: full Cardiovascular - normal exam Dental - normal exam Pulmonary - normal exam Abdominal - normal exam Anesthesia Plan ASA 3 Planned anesthetic: general Anesthesia Plan Factors- The patient is not a current smoker. Induction: intravenous Postoperative Plan- Postoperative administration of opioids is intended. Trial extubation is planned. Informed Consent- Anesthetic plan and risks discussed with patient. Blood Consent- Use of blood products discussed with patient who. Plan discussed with HYDROMETER FINISHER. documented in this encounter Plan of Treatment Not on file documented as of this encounter Procedures Procedure Name Priority Date/Time Associated Diagnosis Comments ANESTHESIA INTUBATION Routine 05/06/2025 1:06 PM EDT documented in this encounter Results * AN SINGLE LUMEN INTUBATION (05/06/2025 1:06 PM EDT) Chery Chiu CRNA - 05/06/2025 1:06 PM EDT Chery Gill CRNA 05/06/2025 1:14 PM Intubation Authorized by: Chery Gill CRNA Performed by: Chery Gill CRNA Date/Time: 05/06/2025 1:06 PM Urgency: elective Indications and Patient Condition Indications for airway management: anesthesia and airway protection Spontaneous Ventilation: absent Sedation level: general anesthesia Preoxygenated: yes Patient position: sniffing no Mask difficulty assessment: 2 - vent by mask + OA or adjuvant +/- NMBA no Final Airway Details Final airway type: endotracheal airway Endotracheal tube type: ETT Cuffed: yes Successful intubation technique: direct laryngoscopy Endotracheal tube insertion site: oral Blade: Welch Blade size: #2 ETT size (mm): 7.0 Cormack-Lehane Classification: grade I - full view of glottis Placement verified by: chest auscultation and capnometry Measured from: lips ETT to lips (cm): 22 Number of attempts at approach: 1 Number of other approaches attempted: 0 Chery Gill CRNA ANESTHESIA ORDERABLES Final Result documented in this encounter Visit Diagnoses Not on filedocumented in this encounter Administered Medications Inactive Administered Medications - up to 3 most recent administrations Medication Order MAR Action Action Date Dose Rate Site dexAMETHasone (DECADRON) injection As needed, intravenous, Starting on Tue05/06/25 at 1304, Anesthesia Intra-op Given 05/06/2025 1:04 PM EDT 8 mg electrolyte-R (NORMOSOL-R) infusion intravenous, Continuous, Starting on Tue05/06/25 at 1000, Pre-op New Bag 05/06/2025 1:34 PM EDT 150 mL/hr 150 mL/hr New Bag 05/06/2025 11:19 AM EDT fentaNYL PF (SUBLIMAZE) injection As needed, intravenous, Starting on Tue05/06/25 at 1304, Anesthesia Intra-op Given 05/06/2025 1:35 PM EDT 50 mcg Given 05/06/2025 1:04 PM EDT 50 mcg ketorolac (TORADOL) injection As needed, intravenous, Starting on Tue05/06/25 at 1405, Anesthesia Intra-op Given 05/06/2025 2:05 PM EDT 15 mg lidocaine (XYLOCAINE) injection 2% As needed, intravenous, Starting on Tue05/06/25 at 1304, Anesthesia Intra-op Given 05/06/2025 1:04 PM EDT 100 mg ondansetron (ZOFRAN) injection As needed, intravenous, Starting on Tue05/06/25 at 1405, Anesthesia Intra-op Given 05/06/2025 2:05 PM EDT 4 mg propofol (DIPRIVAN) injection 10 mg/mL bolus As needed, intravenous, Starting on Tue05/06/25 at 1304, Anesthesia Intra-op Given 05/06/2025 1:46 PM EDT 100 mg Given 05/06/2025 1:04 PM EDT 200 mg rocuronium (ZEMURON) injection As needed, intravenous, Starting on Tue05/06/25 at 1304, Anesthesia Intra-op Given 05/06/2025 1:52 PM EDT 10 mg Given 05/06/2025 1:04 PM EDT 40 mg sugammadex (BRIDION) injection As needed, intravenous, Starting on Tue05/06/25 at 1358, Anesthesia Intra-op Given 05/06/2025 1:58 PM EDT 200 mg documented in this encounter Care Teams Central Supply Nurse Relationship Specialty Start Date End Date Tyrell Magana MD [address] [place] [address] [place] [address] PCP - General Family Medicine 11/15/23 documented as of this encounter
--- NOTE | 2025-05-09 13:00 | US_ITS ---
FINAL REPORT TECHNIQUE: Limited sonographic images of the thyroid were obtained. CLINICAL HISTORY: Follow up on thyroid nodules COMPARISON: 06/26/2024 FINDINGS: The right lobe of the thyroid measures 5.0 x 1.9 x 1.4 cm. Nodule A is heterogeneous located in the upper lobe measuring 5 x 5 mm consistent with TR 4. Nodule B is in the mid lobe measuring 6 x 4 mm consistent with TR 4. Nodule C is in the lower lobe measuring 10 x 9 mm, larger than previous. The left lobe is surgically absent. The isthmus measures 5 mm. IMPRESSION: Redemonstrated are 3 right thyroid lobe nodules. Dominant focus in the lower lobe now measures 1 cm. Recommend 1 year follow-up as per TI-RADS criteria. Reviewed, Interpreted and Dictated by Livan Roslaes MD Transcribed by Sherri Pedraza Authenticated and [facility]
--- OUTSIDE RECORDS SUMMARY | 2025-05-09 13:53 | XMS_ITS | Clinical Summary ---
Author Organization [facility] Address [address] [place] [address] Care Team Providers Care Crowning Hammer Operator Name Role Phone Unavailable Primary Care Provider Unavailabl e Allergies Active Allergy Reactions Criticality Noted Date Comments Penicillins Shortness Of Breath 06/23/2009 Medications ascorbic acid (VITAMIN C) 500 mg tabletIndication s:Headache(784.0 ) Take 1 Tab by mouth DAILY. Active B Complex Vitamins (VITAMIN B COMPLEX) TabIndications:H eadache(784.0) Take 1 Tab by mouth DAILY. Active Multivitamin (MULTI-VITAMIN) TabIndications:H eadache(784.0) Take 1 Tab by mouth DAILY. Active ibuprofen (MOTRIN) 800 mg tabletIndication s:Back pain Take 1 Tab by mouth EVERY 6 TO 8 HOURS PRN for Pain. 90 Tab 3 02/07/2010 Active Levonorgestrel-E thinyl Estrad (SEASONALE) 0.15-30 mg-mcg 3MPkIndications: Headache(784.0), Family planning Take 1 Tab by mouth Daily. 90 Tab 0 02/09/2010 Active topiramate (TOPAMAX) 25 mgIndications:Mi graine headache Take 1 Tab by mouth Daily. 30 Tab 3 06/16/2010 Active Topiramate (TOPAMAX) 50 mg TabIndications:M igraine headache Take 1 Tab by mouth Every evening. 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 overweight 05/01/2010 Anxiety 05/01/2010 Family History 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 Relation Name Comments Arthritis-Osteo Father Elevated Lipids Father Heart Cath Father Hypertension Father Aortic Aneurysm Maternal Aunt Heart Disease Maternal Grandfather Cancer Maternal Grandmother brain t umor Diabetes Maternal Grandmother Hypertension Maternal Grandmother Allergy-Severe Mother Anxiety Mother Arthritis-Osteo Mother Autoimmune Mother Depression Mother Diabetes Mother Elevated Lipids Mother Heart Cath Mother High Cholesterol Mother Hypertension Mother Cancer Sister 1 cervical Hypertension Sister 1 Allergic Rhinitis Sister 2 Relation Name Status Comments Brother Alive Father Alive Maternal Aunt Maternal Grandfather Maternal Grandmother Mother Alive Sister 1 Alive Sister 2 Alive 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 Tobacco Use Types Packs/Day Years Used Date Smoking Tobacco: Never Alcohol Use Standard Drinks/Week Comments Yes 0 (1 standard drink = 0.6 oz pur e alcohol) social drinker Comments No Sex and Gender Information Value Date Recorded Sex Assigned at Not on file Legal Sex Female 8:40 PM EST Gender Identity Not on file Sexual Orientation Not on file Last Filed Vital Signs Vital Sign Reading Time Taken Comments Blood Pressure 112/78 06/26/2010 7:26 PM EDT Pulse 84 06/26/2010 7:26 PM EDT Temperature 36.7 C (98 F) 06/26/2010 7:26 PM EDT Respiratory Rate 16 06/26/2010 7:26 PM EDT Oxygen Saturation - - Inhaled Oxygen Concentration - - Weight 101.2 kg (223 lb) 06/26/2010 7:26 PM EDT Height 167.6 cm (5' 6 ) 06/26/2010 7:26 PM EDT Body Mass Index 35.99 06/26/2010 7:26 PM EDT Plan of Treatment Health Maintenance Due Date Last Done Comments HEP C SCREENING 1984 PAP SMEAR EVERY 3 YR (Cervic al Cancer Screen) 1984 ANNUAL WELLNESS EXAM 1987 DTAP/TDAP/TD VACCINE (1 - Tdap) 2003 INFLUENZA VACCINE (Season Ended) 2025 HEP A VACCINE Aged Out No longer elig ible based on patient's age to complete this topic HIB VACCINE Aged Out No longer eligi ble based on patient's age to complete this topic ROTOVIRUS VACCINE Aged Out No longer eligible based on patient's age to complete this topic Insurance [address] [place] [address] BLUE [facility]
--- OUTSIDE RECORDS SUMMARY | 2025-05-09 13:53 | XMS_ITS | Encounter Summary ---
Author Organization [facility] Address [address] [place] [address] Care Team Providers Care Legal Job Titles Name Role Phone Dustin Gomez MD Primary Care Provider Unavailabl e Doctor, No Primary Care Provider Unavailabl e Reason for Visit * Reason Onset Date Comments Medications Refill 03/23/2011 Encounter Details Date Type Department Care Team (Late st Contact Info) Description 03/23/2011 Refill [facility] [address] [place] [address] Dustin Gomez MD 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 Tobacco Use Types Packs/Day Years Used Date Smoking Tobacco: Never Alcohol Use Standard Drinks/Week Comments Yes 0 (1 standard drink = 0.6 oz pur e alcohol) social drinker Comments No Sex and Gender Information Value Date Recorded Sex Assigned at Not on file Legal Sex Female 8:40 PM EST Gender Identity Not on file Sexual Orientation Not on file documented as of this encounter Plan of Treatment Not on file documented as of this encounter Visit Diagnoses Not on filedocumented in this encounter Care Teams Legal Job Titles Relationship Specialty Start Date End Date Dustin Gomez MD PCP - General 08/02/08 02/11/14 , ELOISA Vides PCP - General Family Medicine 02/12/14 12/30/17 documented as of this encounter
--- OUTSIDE RECORDS SUMMARY | 2025-05-09 13:54 | XMS_ITS | Continuity of Care Document ---
Author Organization [facility],, Main Office Address [address] [place] [address] Assessment No assessment recorded. Plan of Treatment Reminders Order Date Submit Date Provider Last Modified By Organization Details Last Modified Time Details Appointments POST-OP 2024 10:00A M JASMINE Lira Not available Not available Not available Lab urinalysi s, dipstick 2024 025 trini Main Office, [address], [place], [address], 03/31/2025 12:44:30 test, urine 2024 025 trini Main Office, [address], [place], [address], 03/31/2025 12:44:30 Referral None recorded. Procedures None recorded. Surgeries None recorded. Imaging None recorded. Medication Orders None recorded. Patient TargetsNo targets recorded. Patient Instructions Encounter Date Encounter Id Patient Instructions Last Modified By Organization Details Last Modified Time 03/13/2025 [id number] wants to do endo ablation, sis endo bx scheduled trini Not available 03/13/2025 21:00:25 Reason for Referral None Reported. Results Created Date Observation Date Name Description Value Unit Range Abnormal Flag Note LastModifiedBy Organization Detail LastModifiedTime 03/13/2003/13/2025 pregn nanci test, urine HCG negati ve Not Available Main Office [address], [place], [address], 03/13/2025 15:53:15 03/13/20 25 03/13/2025 urina lysis , dipst ick Leukocytes - Not Available Main Of fice [address], [place], [address], 03/13/2025 15:53:06 03/13/20 25 03/13/2025 urina lysis , dipst ick Nitrite negati ve Not Available Main Office [address], [place], [address], 03/13/2025 15:53:06 03/13/20 25 03/13/2025 urina lysis , dipst ick Urobilinogen - Not Available Main Office [address], [place], [address], 03/13/2025 15:53:06 03/13/20 25 03/13/2025 urina lysis , dipst ick Protein - Not Available Main Offic e [address], [place], [address], 03/13/2025 15:53:06 03/13/20 25 03/13/2025 urina lysis , dipst ick pH 6.0 Not Available Main Offic e [address], [place], [address], 03/13/2025 15:53:06 03/13/20 25 03/13/2025 urina lysis , dipst ick Specific [place] 1.005 Not Available Main O ffice [address], [place], [address], 03/13/2025 15:53:06 03/13/20 25 03/13/2025 urina lysis , dipst ick Ketone - Not Available Main Offic e [address], [place], [address], 03/13/2025 15:53:06 03/13/20 03/13/2025 urina lysis , dipst ick Bilirubin - Not Available Main Off ice [address], [place], [address], 03/13/2025 15:53:06 03/13/20 25 03/13/2025 imagi ng/di agnos tic resul t No observ ation record ed. [id number], [place], [address], 03/13/2025 16:54:53 03/13/20 25 03/13/2025 imagi ng/di agnos tic resul t No observ ation record ed. [id number], [place], [address], 03/13/2025 16:55:06 03/27/20 25 03/27/2025 imagi ng/di agnos tic resul t No observ ation record ed. [id number], [place], [address], 03/27/2025 17:03:25 03/27/20 25 03/27/2025 imagi ng/di agnos tic resul t No observ ation record ed. [id number], [place], [address], 03/27/2025 17:03:40 Result Notes None recorded. Procedures Surgical History Date Name Laterality Status Provider Name and Address Organization Details Recorded Time 5 Date of Last Pap Smear completed [facility], 03/06/2025 09:53:36 4 Date of Last Mammogram completed [facility], 03/06/2025 10:00:47 Kidney endoscopy completed JASMINE Lira [address], [place], [address], [facility], 01/14/2020 11:20:09 Imaging Results None recorded. Procedure Notes None recorded. Medical Equipment None Reported. Allergies Allergen ID Allergen Name Allergen Category Reaction Reaction Severity Criticality Documentation Date Start Date Code Code System Note Provider Name and Address Organization Details Recorded Time 794 Product containin g penicilli n (product) medicatio n anaphylax is severe Not available 12/12/2017 [id number] REMINGTON Garcia [facility], [facility], 8 11:40:08 Medications Name Sig Start Date Stop Date Status Note LastModified by Organization Details LastModified Time verapamil ER (SR) 120 mg tablet,exte nded release TAKE 1 TABLET BY MOUTH EVERY DAY 03/02 completed Not Available Not Available Not Available glycopyrrol ate 1 mg tablet TAKE 1 TABLET BY MOUTH TWICE A DAY FOR KIDNEY STONES FOR 90 DAYS 2 TABS AM, 1 TAB PM active Not Available Not Available No t [...] Available Not Available ibuprofen 800 mg tablet Take 1 tablet 3 times a day by oral route for 10 days. 2024 active Not Available Not Available Not Avai lable fluconazole 150 mg tablet PLEASE SEE ATTACHED FOR DETAILED DIRECTION S 03/06 completed Not Available Not Available Not Available benzonatate 200 mg capsule 01/14 completed Not Available Not Available Not Available doxepin 25 mg capsule TAKE 1 CAPSULE BY MOUTH EVERY DAY AT BEDTIME 03/02 completed Not Available Not Available Not Available hydrocodone 5 mg-acetamin ophen 325 mg tablet Take 1 tablet every 4 hours by oral route as needed for 3 days. 2024 active Not Available Not Available Not Avai lable ondansetron HCl 8 mg tablet Take 1 tablet twice a day by oral route for 3 days. 2024 active Not Available Not Available Not Avai lable promethazin e 12.5 mg tablet 12/12 completed [...] completed Not Available Not Available Not Available amlodipine 5 mg tablet TAKE 1 TABLET BY MOUTH EVERY DAY 04/30 completed Not Available Not Available Not Available [...] Available ondansetron 8 mg disintegrat ing tablet PLACE 1 TABLET EVERY 8 HOURS BY TRANSLING UAL ROUTE active Not Available Not Available No t Available meloxicam 7.5 mg tablet TAKE 1 [...] Available Not Available pantoprazol e 40 mg tablet,anhum yed release TAKE 1 TABLET BY MOUTH [...] TAKE 1 TABLET BY MOUTH EVERY DAY 04/30 completed Not Available Not Available Not Available promethazin e 25 mg tablet 03/06 completed Not Available Not Available Not Available zafirlukast 20 mg tablet TAKE 1 TABLET BY MOUTH TWICE A DAY FOR ALLERGIES active Not Available Not Available No t Available lisinopril 30 mg tablet TAKE 1 TABLET BY MOUTH [...] 500 mg tablet,exte nded release 24 hr 1000 MG (2 X 500 MG) ORALLY ONCE FOR 90 DAYS active Not Available Not Available No t Available sertraline 50 mg tablet TAKE ONE TABLET BY MOUTH ONCE DAILY FOR DEPRESSIO N 03/02 completed Not Available Not Available Not Available cholecalcif jorge (vitamin D3) 125 mcg (5,000 unit) capsule TAKE 1 CAPSULE BY MOUTH EVERY DAY active Not Available Not Available No t Available doxycycline hyclate 100 mg tablet TAKE [...] Not Available Not Available Not Available 12/17 () 1 mg-20 mcg tablet TAKE 1 TABLET [...] HOURS FOR 10 DAYS. TAKE WITH FOOD 04/09 /2025 completed Not Available Not Available Not Available duloxetine 20 mg capsule,del ayed release TAKE ONE TABLET BY MOUTH TWICE A DAY 04/30 completed Not Available Not Available Not Available [...] completed Not Available Not Available Not Available hydrochloro thiazide 12.5 mg tablet TAKE 2 TABLETS BY MOUTH EVERY DAY active Not Available Not Available No t Available Havrix (PF) 1,440 APRIL unit/mL intramuscul [...] Relief 50 mcg/actuati on nasal spray,suspe nsion [place] 1 spray every day by intranasa l [...] Available Not Available Not Available Flucelvax Quad 2755-5951 (PF) 60 mcg (15 mcg x 4)/0.5 [...] FOLLOW INSTRUCTI ONS INCLUDED WITH THE PACKAGE. 04/30 completed Not Available Not Available Not Available Vitals Date Recorded Body height Body mass index (BMI) Body weight Heart rate Body temperature Systolic blood pressure Diastolic blood pressure Provider Name and Address Organization Details Last Updated DateTime 5 167.64 cm 43.6 kg/m2 420271. 94 g 85 /min 96.5 [degF] 169 mm[Hg] 112 mm[Hg] [facility], 5 15:52:24 Date Recorded Body height Body mass index (BMI) Body weight Heart rate Body temperature Systolic blood pressure Diastolic blood pressure Provider Name and Address Organization Details Last Updated DateTime 5 167.64 cm 43.4 kg/m2 097175. 35 g 95 /min 96.7 [degF] 142 mm[Hg] 99 mm[Hg] [facility], 5 16:01:48 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 Question Answer Notes LastModified by Organizat ion Details LastModified Time Tobacco Smoking Status Never Smoker Not Available [facility] 09/23/2020 03:20:23 Able To Swim? Yes Information not available 12/12/2017 Accident Related Injury No Information not available 12/12/2017 Do You Have An Advance Directive? No [id number] Information not available 09/23/2020 How Many Years Have You Consumed Alcohol? 12 [id number] Information not available 09/23/2020 Animal Exposure? Yes Informat ion not available 12/12/2017 Are You Currently Sexually Active With Anyone Who Has Traveled (within The Last 12 Weeks) To A Zika-affected Area? No [id number] Information not available 09/23/2020 Do You Wear A Helmet When Biking? No [id number] Information not available 09/23/2020 Are You Blind Or Do You Have Difficulty Seeing? No [id number] Information not available 09/23/2020 What Is Your Level Of Caffeine Consumption? Occasional [id number] Information not available 09/23/2020 How Much Tobacco Do You Chew? None [id number] Information not available 09/23/2020 Concerns About Meeting Basic Needs (food, Housing, Heat, Etc)? No Information not available 12/12/2017 Are You Deaf Or Do You Have Serious Difficulty Hearing? No [id number] Information not available 09/23/2020 What Type Of Diet Are You Following? REGULAR [id number] Information not available 09/23/2020 Which Illicit Or Recreational Drugs Have You Used? None [id number] Information not available 09/23/2020 Education Post Graduate Information not available 12/12/2017 Family History Of Heart Disease? Yes Information not available 12/12/2017 Have There Been Any Changes To Your Family Or Social Situation? No [id number] Information no t available 09/23/2020 Are There Any Guns Present In Your Home? Yes [id number] Information not available 09/23/2020 Hard Of Hearing Or Deaf In One Or Both Ears? No Information not available 12/12/2017 Legally Blind In One Or Both Eyes? No Information no t available 12/12/2017 Live Alone Or With Others? With Others Information not available 12/12/2017 Do You Have A Medical Power Of Security Vehicle Patrol Officer? No [id number] Information not available 09/23/2020 What Was The Date Of Your Most Recent Tobacco Screening? 12/18/2018 [id number] Information not available 09/23/2020 How Many Children Do You Have? 0 [id number] Information not available 09/23/2020 Performs Monthly Self-breast Exam? No Information no t available 12/12/2017 Do You Have Any Pets? Yes [id number] Information not available 09/23/2020 Difficulty Reading? No Information not available 12/12/2017 Seat Belts Used Routinely Yes Information not available 12/12/2017 Are You Sexually Active? Yes [id number] Information not available 09/23/2020 Smoke Alarm In Home Yes Information not available 12/12/2017 Do You Have Smoke And Carbon Monoxide Detectors In Your Home? Yes [id number] Information not available 09/23/2020 Are You Passively Exposed To Smoke? No Information no t available 12/12/2017 Are There Any Smokers In Your House? No Information not available 12/12/2017 How Much Tobacco Do You Smoke? No [id number] Information not available 09/23/2020 General Stress Level Medium Information not available 12/12/2017 Sun Exposure Occasional Information not available 12/12/2017 Do You Use Sunscreen Routinely? Yes [id number] Information not available 09/23/2020 TB Risk Low Information no t available 12/12/2017 Has Tobacco Cessation Counseling Been Provided? No [id number] Information not available 09/23/2020 Difficulty Watching TV? No Information not available 12/12/2017 Do You Have Difficulty Walking Or Climbing Stairs? No [id number] Information not available 09/23/2020 Sex: Unknown Functional Status Question Answer Note LastModified by Organizat ion Details LastModified Time What is your level of alcohol consumption? Occasional [id number] Information not available 09/23/2020 Are you currently employed? Yes [id number] Information not available 09/23/2020 Do you have transportation difficulties? No [id number] Information not available 09/23/2020 Are you able to walk? YESWOREST [id number] Information not available 09/23/2020 Do you have difficulty doing errands alone? No [id number] Information not available 09/23/2020 Are you able to care for yourself? 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 No [id number] Information not available 09/23/2020 What is your exercise level? Occasional [id number] Information not available 09/23/2020 Mental Status Question Answer Note LastModified by Organization D etails LastModified Time Do you have difficulty concentrating, remembering or making decisions? No [id number] Information no t available 09/23/2020 Family History Relationship Description Onset Age of this Age Resolved Age Notes LastModified by Organization Details LastModified Time Mother Hypertensive disorder [email or web address] Not available 12/12 11:47:55 Mother Diabetes mellitus [email or web address] Not available 12/12 11:48:11 Mother Family history of malignant neoplasm mantle cell lympho ma [email or web address] Not available 09/15/2020 08:26:46 Mother Kidney disease [...] history of malignant neoplasm cervic al cancer Not available 09/15/2020 08:26:46 Sister Headache [email or web address] Not availab le 12/12/2017 11:49:26 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 Condition Response Coronary Artery Disease N Other N Gout N Blood Diseases N Kidney Stones Y Hyperthyroidism N Enlarged Prostate N Blood Transfusion N Dermatologic Disorders N Depression N COPD N Gestational Diabetes N Anxiety Disorder N [...] virus, quadrivalent, preservative 7 completed Not Available [facility] 12/29/2019 02:17:09 Past Encounters Encounter ID Performer Location Encounter Start Date Encounter Closed Date Diagnosis/Indication Diagnosis SNOMED-CT Code Diagnosis ICD10 Code Diagnosis Note [id number] Dandy Duque DO Main Office [address] [place] [address] 03/06/2025 09:45:36 03/06/2025 10:22:07 Well woman health examination 604721674 Z01.411 pap. has had mammogram. Menorrhagia 632300375 N9 2.0 u/s, considerin g ablation Leukocytes in urine 2757 58302 R82.998 Pain in pelvis 65675954 R10.2 resolved/c ontrolled [id number] Dandy Duque DO Main Office [address] [place] [address] 03/13/2025 15:47:12 03/13/2025 16:56:19 Abnormal uterine bleeding 2677696084 9100 N93.8 Pain in pelvis 27617179 R10.2 Large ovary 36600462 N83 .8 Health Concerns Section Related Observation LastModified by Organization Detai ls LastModified Time None Recorded Concern Status LastModified by Organization Details LastModified Time None Recorded Payers Encounter Date Sequence Insurance Name Policy Number Policy Renee Covered Member ID Renee Member ID Guarantor Name 03/13/2025 1 [place] [id number] Celine Dc [id number] Celine Dc OBGyn Episode No OBEpisode recorded.
--- OUTSIDE RECORDS SUMMARY | 2025-05-09 13:54 | XMS_ITS | Continuity of Care Document ---
Author Organization [facility],, Main Office Address [address] [place] [address] Assessment No assessment recorded. Plan of Treatment Reminders Order Date Submit Date Provider Last Modified By Organization Details Last Modified Time Details Appointments POST-OP 2024 10:00A M JASMINE Lira Not available Not available Not available Lab urinalysi s, dipstick 2024 025 trini Main Office, [address], [place], [address], 03/31/2025 15:48:51 test, urine 2024 025 trini Main Office, [address], [place], [address], 03/31/2025 15:48:51 Referral None recorded. Procedures None recorded. Surgeries None recorded. Imaging None recorded. Medication Orders None recorded. Patient TargetsNo targets recorded. Patient InstructionsNo instructions recorded. Reason for Referral None Reported. Results Created Date Observation Date Name Description Value Unit Range Abnormal Flag Note LastModifiedBy Organization Detail LastModifiedTime 03/27/2003/27/2025 urina lysis , dipst ick Leukocytes - Not Available Main Of fice [address], [place], [address], 03/27/2025 16:02:31 03/27/20 25 03/27/2025 urina lysis , dipst ick Nitrite negati ve Not Available Main Office [address], [place], [address], 03/27/2025 16:02:31 03/27/20 25 03/27/2025 urina lysis , dipst ick Urobilinogen - Not Available Main Office [address], [place], [address], 03/27/2025 16:02:31 03/27/20 25 03/27/2025 urina lysis , dipst ick Protein - Not Available Main Offic e [address], [place], [address], 03/27/2025 16:02:31 03/27/20 25 03/27/2025 urina lysis , dipst ick pH 6.0 Not Available Main Offic e [address], [place], [address], 03/27/2025 16:02:31 03/27/20 25 03/27/2025 urina lysis , dipst ick Specific [place] 1.005 Not Available Main O ffice [address], [place], [address], 03/27/2025 16:02:31 03/27/20 25 03/27/2025 urina lysis , dipst ick Ketone - Not Available Main Offic e [address], [place], [address], 03/27/2025 16:02:31 03/27/20 25 03/27/2025 urina lysis , dipst ick Bilirubin - Not Available Main Off ice [address], [place], [address], 03/27/2025 16:02:31 03/27/20 25 03/27/2025 urina lysis , dipst ick Glucose Not Available Main Offic e [address], [place], [address], 03/27/2025 16:02:31 03/27/20 25 03/27/2025 pregn nanci test, urine HCG negati ve Not Available Main Office [address], [place], [address], 03/27/2025 16:02:40 03/13/20 25 03/13/2025 imagi ng/di agnos tic resul t No observ ation record ed. [id number], [place], [address], 03/13/2025 16:54:53 03/13/20 25 03/13/2025 imagi ng/di agnos tic resul t No observ ation record ed. [id number], [place], [address], 03/13/2025 16:55:06 03/27/20 25 03/27/2025 imagi ng/di agnos tic resul t No observ ation record ed. [id number], [place], [address], 03/27/2025 17:03:25 03/27/20 25 03/27/2025 imagi ng/di agnos tic resul t No observ ation record ed. [id number], [place], [address], 03/27/2025 17:03:40 Result Notes None recorded. Procedures Surgical History Date Name Laterality Status Provider Name and Address Organization Details Recorded Time 5 Date of Last Pap Smear completed [facility], 03/06/2025 09:53:36 4 Date of Last Mammogram completed [facility], 03/06/2025 10:00:47 Kidney endoscopy completed JASMINE Lira [address], [place], [address], [facility], 01/14/2020 11:20:09 Imaging Results None recorded. Procedure Notes None recorded. Medical Equipment None Reported. Allergies Allergen ID Allergen Name Allergen Category Reaction Reaction Severity Criticality Documentation Date Start Date Code Code System Note Provider Name and Address Organization Details Recorded Time 794 Product containin g penicilli n (product) medicatio n anaphylax is severe Not available 12/12/2017 74889 8001 SNOMED Mitra Garcia [facility], [place] - [place] [facility], 8 11:40:08 Medications Name [...] Not Available 12/17 () 1 mg-20 mcg (21)/75 mg (7) tablet TAKE 1 TABLET BY MOUTH EVERY DAY 09/15 completed Not Available Not Available Not Available () 1.5 mg-30 mcg (21)/75 mg (7) [...] Relief 50 mcg/actuati on nasal spray,suspe nsion [place] 1 spray every day by intranasa l [...] Available Not Available Not Available Flucelvax Quad 3013-7763 (PF) 60 mcg (15 mcg x 4)/0.5 [...] Updated DateTime 5 167.64 cm 43.4 kg/m2 084798. 35 g 95 /min 96.7 [degF] 142 mm[Hg] 99 mm[Hg] Dave Johnson [facility], 5 16:01:48 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 Question Answer Notes LastModified by Organizat ion Details LastModified Time Tobacco Smoking Status Never Smoker Not Available [employer] 09/23/2020 03:20:23 Able To Swim? Yes Information not available 12/12/2017 Accident Related Injury No Information not available 12/12/2017 Do You Have An Advance Directive? No [id number] Information not available 09/23/2020 How Many Years Have You Consumed Alcohol? 12 [id number] Information not available 09/23/2020 Animal Exposure? Yes Informat ion not available 12/12/2017 Are You Currently Sexually Active With Anyone Who Has Traveled (within The Last 12 Weeks) To A Zika-affected Area? No [id number] Information not available 09/23/2020 Do You Wear A Helmet When Biking? No [id number] Information not available 09/23/2020 Are You Blind Or Do You Have Difficulty Seeing? No [id number] Information not available 09/23/2020 What Is Your Level Of Caffeine Consumption? Occasional [id number] Information not available 09/23/2020 How Much Tobacco Do You Chew? None [id number] Information not available 09/23/2020 Concerns About Meeting Basic Needs (food, Housing, Heat, Etc)? No Information not available 12/12/2017 Are You Deaf Or Do You Have Serious Difficulty Hearing? No [id number] Information not available 09/23/2020 What Type Of Diet Are You Following? REGULAR [id number] Information not available 09/23/2020 Which Illicit Or Recreational Drugs Have You Used? None [id number] Information not available 09/23/2020 Education Post Graduate Information not available 12/12/2017 Family History Of Heart Disease? Yes Information not available 12/12/2017 Have There Been Any Changes To Your Family Or Social Situation? No [id number] Information no t available 09/23/2020 Are There Any Guns Present In Your Home? Yes [id number] Information not available 09/23/2020 Hard Of Hearing Or Deaf In One Or Both Ears? No Information not available 12/12/2017 Legally Blind In One Or Both Eyes? No Information no t available 12/12/2017 Live Alone Or With Others? With Others Information not available 12/12/2017 Do You Have A Medical Power Of Display Designer Outside? No [id number] Information not available 09/23/2020 What Was The Date Of Your Most Recent Tobacco Screening? 12/18/2018 [id number] Information not available 09/23/2020 How Many Children Do You Have? 0 [id number] Information not available 09/23/2020 Performs Monthly Self-breast Exam? No Information no t available 12/12/2017 Do You Have Any Pets? Yes [id number] Information not available 09/23/2020 Difficulty Reading? No Information not available 12/12/2017 Seat Belts Used Routinely Yes Information not available 12/12/2017 Are You Sexually Active? Yes [id number] Information not available 09/23/2020 Smoke Alarm In Home Yes Information not available 12/12/2017 Do You Have Smoke And Carbon Monoxide Detectors In Your Home? Yes [id number] Information not available 09/23/2020 Are You Passively Exposed To Smoke? No Information no t available 12/12/2017 Are There Any Smokers In Your House? No Information not available 12/12/2017 How Much Tobacco Do You Smoke? No [id number] Information not available 09/23/2020 General Stress Level Medium Information not available 12/12/2017 Sun Exposure Occasional Information not available 12/12/2017 Do You Use Sunscreen Routinely? Yes [id number] Information not available 09/23/2020 TB Risk Low Information no t available 12/12/2017 Has Tobacco Cessation Counseling Been Provided? No [id number] Information not available 09/23/2020 Difficulty Watching TV? No Information not available 12/12/2017 Do You Have Difficulty Walking Or Climbing Stairs? No [id number] Information not available 09/23/2020 Sex: Unknown Functional Status Question Answer Note LastModified by Organizat ion Details LastModified Time What is your level of alcohol consumption? Occasional [id number] Information not available 09/23/2020 Are you currently employed? Yes [id number] Information not available 09/23/2020 Do you have transportation difficulties? No [id number] Information not available 09/23/2020 Are you able to walk? YESWOREST [id number] Information not available 09/23/2020 Do you have difficulty doing errands alone? No [id number] Information not available 09/23/2020 Are you able to care for yourself? 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 No [id number] Information not available 09/23/2020 What is your exercise level? Occasional [id number] Information not available 09/23/2020 Mental Status Question Answer Note LastModified by Organization D etails LastModified Time Do you have difficulty concentrating, remembering or making decisions? No [id number] Information no t available 09/23/2020 Family History Relationship Description Onset Age of this Age Resolved Age Notes LastModified by Organization Details LastModified Time Mother Hypertensive disorder [email or web address] Not available 12/12 11:47:55 Mother Diabetes mellitus [email or web address] Not available 12/12 11:48:11 Mother Family history of malignant neoplasm mantle cell lympho ma [email or web address] Not available 09/15/2020 08:26:46 Mother Kidney disease [...] history of malignant neoplasm cervic al cancer [id number] Not available 09/15/2020 08:26:46 Sister Headache [email or web address] Not availab le 12/12/2017 11:49:26 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 Condition Response Coronary Artery Disease N Other N Gout N Blood Diseases N Kidney Stones Y Hyperthyroidism N Enlarged Prostate N Blood Transfusion N COPD N Depression N Dermatologic Disorders N Gestational Diabetes N Anxiety Disorder N Muscle, Joint, or Bone Problems N Autoimmune disease N Obesity N Vision or Eye Problems N Arthritis N Polyps N Infertility N Mental Disorder N Cancer N Stroke N Varicosities N Neurologic/Epilepsy N Fibromyalgia N Headaches N Kidney Disease N Heart Problems N [...] virus, quadrivalent, preservative 7 completed Not Available [facility] 02:17:09 Past Encounters Encounter ID Performer Location Encounter Start Date Encounter Closed Date Diagnosis/Indication Diagnosis SNOMED-CT Code Diagnosis ICD10 Code Diagnosis Note [id number] Dandy Duque DO Main Office [address] [place] [address] 03/06/2025 09:45:36 03/06/2025 10:22:07 Well woman health examination 202299430 Z01.411 pap. has had mammogram. Menorrhagia 078470735 N9 2.0 u/s, considerin g ablation Leukocytes in urine 2757 44419 R82.998 Pain in pelvis 26553718 R10.2 resolved/c ontrolled [id number] Dandy Duque DO Main Office [address] [place] [address] 03/13/2025 15:47:12 03/13/2025 16:56:19 Abnormal uterine bleeding 3476759831 9100 N93.8 Pain in pelvis 59471243 R10.2 Large ovary 52623229 N83 .8 [id number] Dandy Duque DO Main Office [address] [place] [address] 03/27/2025 15:58:46 03/28/2025 07:59:23 Abnormal uterine bleeding 0483795344 9100 N93.8 Pain in pelvis 10065108 R10.2 Large ovary 45983157 N83 .8 Health Concerns Section Related Observation LastModified by Organization Detai ls LastModified Time None Recorded Concern Status LastModified by Organization Details LastModified Time None Recorded Payers Encounter Date Sequence Insurance Name Policy Number Policy Renee Covered Member ID Renee Member ID Guarantor Name 03/27/2025 1 [employer] [id number] Celine Dc [id number] Celine Dc OBGyn Episode No OBEpisode recorded.
--- OUTSIDE RECORDS SUMMARY | 2025-05-09 13:54 | XMS_ITS | Referral Summary ---
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 Name Role Phone Tyrell Magana MD Primary Care Provider [phone]- [phone] Encounters Date Type Department Care Team Description 05/06/2025 Travel 05/06/2025 12:00 PM EDT - 05/06/2025 1:52 PM EDT Surgery [facility] Surgery Department [address] [place] [id number] Justice Miller MD Diagnostic LAPAROSCOPY, ENDOMETRIAL ABLATION 05/06/2025 12:59 PM EDT Anesthesia Event [facility] Surgery Department [address] [place] [address] Chery Gill CRNA Booker, Philip Craig, MD 05/06/2025 9:19 AM EDT - 05/06/2025 3:19 PM EDT Hospital Encounter [facility] Surgery Department [address] [place] [address] Justice Miller MD Excessive or frequent menstruation; Encounter for gynecological examination with abnormal finding; Excessive, frequent and irregular menstruation; Secondary dysmenorrhea Discharge Disposition: Home or Self Care 04/30/2025 3:54 PM EDT - 04/30/2025 11:59 PM EDT Hospital Encounter [facility] Diagnostic Imaging [address] [place] [address] Justice Miller MD Discharge Disposition: Home or Self Care 04/30/2025 Travel 04/30/2025 2:38 PM EDT - 04/30/2025 3:53 PM EDT Hospital Encounter [facility]readmission Testing [address] [place] [address] Justice Miller MD Pre-op testing (Primary Dx); RLS (restless legs syndrome) Discharge Disposition: Home or Self Care from Last 3 Months Allergies Active Allergy Reactions Criticality Noted Date Comments Cephalexin Nausea And Vomiting 11/16/2023 Other reaction(s): Syncope Penicillin Anaphylaxis High 11/16/2023 Medications busPIRone (BUSPAR) 7.5 MG tablet Take 1 tablet (7.5 mg total) by mouth 2 (two) times daily. 10/29/20 23 Active famotidine (PEPCID) 40 MG tablet Take 1 tablet (40 mg total) by mouth daily. 10/29/20 23 Active glycopyrrolate (RobinuL) 1 mg tablet 10/29/20 23 Active levocetirizine (Xyzal) 5 MG tablet 10/29/20 23 Active lisinopriL (PRINIVIL,ZEST RIL) 10 MG tablet Take 1 tablet (10 mg total) by mouth 3 (three) times daily. 10/29/20 23 Active meloxicam (MOBIC) 7.5 MG tablet TAKE 1 TABLET BY MOUTH EVERY DAY FOR ARTHRITIS 10/29/20 23 Active metFORMIN (GLUCOPHAGE) 500 MG tablet Active multivit with calcium,iron,m in (MULTIVITAMIN- CALCIUM AND IRON ORAL) 10/29/20 23 Active norethindrone- ethinyl estradiol-iron (Junel FE 1.5/30, 28,) 1.5 mg-30 mcg (21)/75 mg (7) per tablet 10/29/20 23 Active pantoprazole (PROTONIX) 40 MG tablet Take 1 tablet (40 mg total) by mouth daily. Active potassium citrate (Urocit-K 15) 15 mEq TbER 10/29/20 23 Active propranoloL (Inderal LA) 60 MG 24 hr capsule 03/24/20 23 Active rOPINIRole (REQUIP) 0.25 MG tabletIndicati ons:restless leg syndrome Take 4 tablets (1 mg total) by mouth daily. 10/29/20 Active zafirlukast (Accolate) 20 MG tablet 10/29/20 Active DULoxetine (CYMBALTA) 30 MG capsule Take 1 capsule (30 mg total) by mouth daily. Active fluticasone propionate (FLONASE) 50 mcg/actuation nasal spray Administer 1 spray into each nostril daily. Active hydroCHLOROthi azide (MICROZIDE) 12.5 mg capsule Take 1 capsule (12.5 mg total) by mouth daily. Active Missing or Non-Formulary Medication PROBIOTIC. Active cholecalcifero l (VITAMIN D3) 125 mcg (5,000 unit) tablet Take 1 tablet (5,000 Units total) by mouth daily. Active cetirizine (ZyrTEC) 10 MG tablet Take 1 tablet (10 mg total) by mouth daily. Active cyclobenzaprin e (FLEXERIL) 5 MG tablet Take 1 tablet (5 mg total) by mouth 2 (two) times daily. 10/29/20 025 Discontinued phentermine (Adipex-P) 37.5 mg tablet 10/29/20 025 Discontinued sertraline (ZOLOFT) 50 MG tablet Take 1 tablet (50 mg total) by mouth daily. 10/29/20 025 Discontinued b complex vitamins tablet Take 1 tablet by mouth daily. 025 Discontinued nitrofurantoin , macrocrystal-m onohydrate, (MACROBID) 100 MG capsule Take 1 capsule (100 mg total) by mouth 2 (two) times daily. 14 capsule 11/17/20 025 Discontinued Active Problems Problem Noted Date Diagnosed Date Diabetes mellitus, type 2 05/06/2025 Migraines 04/30/2025 RLS (restless legs syndrome) 04/30/2025 Morbid obesity 11/17/2023 HTN (hypertension) CON (obstructive sleep apnea) GERD (gastroesophageal reflux disease) 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 Tobacco Use Types Packs/Day Years Used Date Smoking Tobacco: Never Smokeless Tobacco: Never Tobacco Cessation:Counseling Given: Not Answered Alcohol Use Standard Drinks/Week Comments Not Currently [...] Date Surinder rded Speak language other than Tanzanian at home Not on file 12/16/2023 Want [...] PM CDT Sexual Orientation Not on file Last Filed [...] 6.4 oz) 025 10:06 AM EDT Height 167.6 cm (5' 6 ) 04/30/2025 2:50 PM EDT Body Mass Index 42.68 04/30/2025 2:50 PM EDT Plan of Treatment Not on file Procedures Procedure Name Priority Date/Time Associated Diagnosis Comments NOVA GLUCOSE POC Routine 05/06/2025 2:12 PM EDT TISSUE EXAM [facility] AP Routine 05/06/2025 1:43 PM EDT Excessive or frequent menstruation Encounter for gynecological examination with abnormal finding Excessive, frequent and irregular menstruation Secondary dysmenorrhea ANESTHESIA INTUBATION Routine 05/06/2025 1:06 PM EDT OH HYSTEROSCOPY ENDOMETRIAL ABLATION 05/06/2025 12:58 PM EDT Excessive or frequent menstruation Encounter for gynecological examination with abnormal finding Excessive, frequent and irregular menstruation Secondary dysmenorrhea Case Notes This case needs to be Robotic per TEJAS Love OH LAPS ABD PRTM&OMENTUM DX W/WO SPEC BR/WA SPX 05/06/2025 12:58 PM EDT Excessive or frequent menstruation Encounter for gynecological examination with abnormal finding Excessive, frequent and irregular menstruation Secondary dysmenorrhea Case Notes This case needs to be Robotic per TEJAS Love EKG-SCANNED 05/06/2025 XR CHEST PA AND LATERAL Routine 04/30/2025 4:00 PM EDT Pre-op testing SCREEN, URINE Routine 04/30/2025 3:08 PM EDT Pre-op testing COMPREHENSIVE METABOLIC PANEL Routine 04/30/2025 3:07 PM EDT Pre-op testing CBC W/ AUTO DIFF Routine 04/30/2025 3:07 PM EDT Pre-op testing FS_MODEL_IP_ECG 12-LEAD Routine 04/30/2025 1:59 PM EDT Pre-op testing from Last 3 Months Results * Glucose, Nova Meter (05/06/2025 2:12 PM EDT) POC-GLUCOSE 104 70 - 110 mg/dL 05/06/2025 2:13 PM EDT [facility] Comment: In the event of poor peripheral blood flow, venous or arterial blood should be used due to the potential of erroneous results. No action Require Hander In [id number] 05/06/2025 2:13 PM EDT [facility] Blood WHOLE BLOOD / Unknown 05/06/2025 2:12 PM EDT 05/06/2025 2:13 PM EDT Narrative [facility] - 05/06/2025 2:13 PM EDT Hander In ID is - [id number] us Justice Miller MD POINT OF CARE TEST ORDERABLES Final Result [facility] [address] [phone] * Tissue Exam (05/06/2025 1:43 PM EDT) AP RESULT See Note: [facility] Comment: [facility] [address] [place] [address] or [phone] Heath Pruett M.D., Journeyman Patternmaker PATIENT NAME LABORATORY NO. CELINE BAUTISTA. [id number] AGE SEX SSN CLIENT REF # [facility] 39 1985 F [id number] 150 [facility] REQUESTING Gustavo ATTENDING [place] [address] JUSTICE MILLER DATE COLLECTED DATE RECEIVED DATE [...] rendered by Ailyn Siddiqui M.D., F.C.A.P. at [employer], [address] [place] [address]. GROSS DESCRIPTION: Labeled endometrial curettings consists of multiple pieces of rocha-brown soft tissue measuring 3.0 x 2.5 x 0.6 cm in aggregate. Specimens are filtered and submitted entirely in 3 blocks. BKO REVIEWED, DIAGNOSED AND ELECTRONICALLY SIGNED BY: Ailyn Siddiqui M.D., Liyah CPT CODES: [id number] Tissue SPECIMEN FROM ENDOMETRIUM OBTAINED BY CURETTAGE / Unknown 05/06/2025 1:43 PM EDT Justice Miller MD PATHOLOGY/CYTOLOGY ORDERABLES Final Result [facility] [address] [place] [address] * AN SINGLE LUMEN INTUBATION (05/06/2025 1:06 PM EDT) Narrative Chery Gill CRNA - 05/06/2025 1:06 PM EDT Chery [...] Chery Gill CRNA ANESTHESIA ORDERABLES Final Result * EKG-SCANNED (05/06/2025) Narrative 05/06/2025 Ordered by an unspecified provider. us Default Scanning Provider SCAN ORDERS Final Result * X-ray chest PA and lateral (04/30/2025 4:00 PM EDT) Anatomical Region Laterality Modality Chest X-Ray 04/30/2025 5:32 PM EDT Impressions 04/30/2025 5:34 PM EDT Unremarkable two-view chest. Images reviewed, interpreted, dictated and electronically signed by Nithin Matamoros MD Voice policy value calculator technology (Power Scribe) is used for the dictation of this note and sound-alike words might be erroneously placed despite reviewing this note for accuracy. Errors in dictation may reflect use of voice recognition software and not all errors in policy value calculator may have been detected prior to signing. [...] electronically signed by Nithin Matamoros MD Voice policy value calculator technology (Power Scribe) is used for the dictation of this note and sound-alike words might be erroneously placed despite reviewing this note for accuracy. Errors in dictation may reflect use of voice recognition software and not all errors in policy value calculator may have been detected prior to signing. Justice Miller MD IMG DIAGNOSTIC IMAGING ORDERA BLES Final Result * Screen, urine (04/30/2025 3:08 PM EDT) Preg Test, Ur Negative Negative, Inconclusive 04/30/2025 3:26 PM EDT [facility] Urine 04/30/2025 3:08 PM EDT 04/30/2025 3:08 PM EDT Justice Miller MD URINE ORDERABLES Final Result Performing Organization Address City/State/[facility] Co de Phone Number [facility] [address] [employer] [phone] * CBC with automated diff (04/30/2025 3:07 PM EDT) Pathologist [facility] WBC 9.2 3.9 - 10.0 K/ L 04/30/2025 3:22 PM EDT [facility] RBC 4.59 3.93 - 5.22 M/ L 04/30/2025 3:22 PM EDT [facility] Hemoglobin 13.7 11.2 - 15.7 GM/DL 04/30/2025 3:22 PM EDT [facility] Hematocrit 41.8 34.1 - 44.9 % 04/30/2025 3:22 PM EDT [facility] MCV 91 79 - 95 fL 04/30/2025 3:22 PM EDT [facility] MCH 29.8 25.6 - 32.2 pg 04/30/2025 3:22 PM EDT [facility] MCHC 32.8 32.2 - 36.5 GM/DL 04/30/2025 3:22 PM EDT [facility] RDW 14.3 11.6 - 14.4 % 04/30/2025 3:22 PM EDT [facility] Platelets 345 163 - 369 K/CU MM 04/30/2025 3:22 PM EDT [facility] MPV 9.4 9.4 - 12.4 fL 04/30/2025 3:22 PM EDT [facility] % Neutros 52 34 - 71 % 04/30/2025 3:22 PM EDT [facility] % Lymphs 37 19 - 53 % 04/30/2025 3:22 PM EDT [facility] % Monos 8 4 - 13 % 04/30/2025 3:22 PM EDT [facility] % Eos 2 1 - 7 % 04/30/2025 3:22 PM EDT [facility] % Baso 0 0 - 1 % 04/30/2025 3:22 PM EDT [facility] # Neutros 4.80 1.56 - 6.13 K/ L 04/30/2025 3:22 PM EDT [facility] # Lymphs 3.39 1.18 - 3.74 K/ L 04/30/2025 3:22 PM EDT [facility] # Monos 0.71 0.24 - 0.82 K/ L 04/30/2025 3:22 PM EDT [facility] # Eos 0.20 0.04 - 0.54 K/ L 04/30/2025 3:22 PM EDT [facility] # Baso 0.04 0.01 - 0.08 K/ L 04/30/2025 3:22 PM EDT [facility] Immature Granulocytes-Re lative 0.40 0.00 - 0.60 % 04/30/2025 3:22 PM EDT [facility] # IG 0.04 0.00 - 0.05 K/uL 04/30/2025 3:22 PM EDT [facility] Blood Venipuncture / Unknown 04/30/2025 3:07 PM EDT 04/30/2025 3:07 PM EDT Narrative [facility] - 04/30/2025 3:22 PM EDT When [...] Flag noted Atypical Lymph flag noted us Justice Miller MD LAB BLOOD ORDERABLES Final Re sult [facility] [address] [employer] [place] [address], [facility] [phone] * (ABNORMAL) Comprehensive metabolic panel (04/30/2025 3:07 PM EDT) Sodium 138 136 - 146 meq/L 04/30/2025 3:32 PM EDT [facility] Potassium 3.9 3.5 - 5.1 meq/L 04/30/2025 3:32 PM EDT [facility] Chloride 102 102 - 112 meq/L 04/30/2025 3:32 PM EDT [facility] CO2 28 21 - 32 meq/L 04/30/2025 3:32 PM EDT [facility] Calcium 9.6 8.5 - 10.1 mg/dL 04/30/2025 3:32 PM EDT [facility] Glucose 105 74 - 106 mg/dL 04/30/2025 3:32 PM EDT [facility] BUN 11 7 - 22 mg/dL 04/30/2025 3:32 PM EDT [facility] Creatinine 0.85 0.55 - 1.02 mg/dL 04/30/2025 3:32 PM EDT [facility] BUN/Creatinine 13 8 - 20 04/30/2025 3:32 PM EDT [facility] Albumin 3.5 3.4 - 5.0 g/dL 04/30/2025 3:32 PM EDT [facility] Alkaline Phosphatase 50 27 - 136 U/L 04/30/2025 3:32 PM EDT [facility] ALT 54 12 - 78 U/L 04/30/2025 3:32 PM EDT [facility] AST 46(H) 5 - 37 U/L 04/30/2025 3:32 PM EDT [facility] Total Bilirubin 0.2 0.2 - 1.3 mg/dL 04/30/2025 3:32 PM EDT [facility] Protein, Total 7.0 6.4 - 8.2 gm/dL 04/30/2025 3:32 PM EDT [facility] Anion Gap 12 9 - 20 04/30/2025 3:32 PM EDT [facility] A/G Ratio 1.0(L) 1.1 - 2.5 04/30/2025 3:32 PM EDT [facility] Globulin 3.5 1.5 - 4.5 g/dL 04/30/2025 3:32 PM EDT [facility] Osmolality Calc 275.4 mOsm/kg 3:32 PM EDT [facility] eGFR (mL/min/1.73m2) >60 >=60 mL/min/1.7 3m2 04/30/2025 3:32 PM EDT [facility] Comment:ESTIMATED GFR IS NOT ACCURATE CREATININE CLEARANCE IN PREDICTING GLOMERULAR FILTRATION RATE. ESTIMATED GFR IS NOT APPLICABLE FOR DIALYSIS PATIENTS. Blood Venipuncture / Unknown 04/30/2025 3:07 PM EDT 04/30/2025 3:07 PM EDT Justice Miller MD LAB BLOOD ORDERABLES Final Re sult Performing Organization Address City/[facility] Co de Phone Number [facility] [address] [place] [address] * ECG 12 lead (04/30/2025 1:59 PM EDT) VENTRICULAR RATE EKG/MIN 82 BPM GE MUSE ATRIAL RATE (MCT) 82 BPM GE MUSE [place] Interval 170 ms GE MUSE QRS-INTERVAL (MSEC) 92 ms GE MUSE QT Interval 354 ms GE MUSE QTC Interval 413 ms GE MUSE P [place] 55 degrees GE MUSE R AXIS (MCT) 69 degrees GE MUSE T Wave [place] 65 degrees GE MUSE [place] Diagnosis Normal sinus rhythm Normal ECG Confirmed by Gustavo FITZGERALD SUZANNE ([id number]) on 04/30/2025 4:57:51 PM GE MUSE 04/30/2025 1:59 PM EDT 04/30/2025 4:57 PM EDT Justice Miller MD ECG ORDERABLES Final Result Performing Organization Address City/[facility]/ZIP Co de Phone Number GE MUSE from Last 3 Months Insurance BLUE CROSS/BLUE SHIELD Advance Directives For more information, please contact: [phone] * Full Code (Latest Code Status on File) Date Activated Date Inactivated Comments 11/17/2023 11:34 AM 11/17/2023 6:14 PM Care Teams [employer] 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
--- OUTSIDE RECORDS SUMMARY | 2025-05-09 13:54 | XMS_ITS | Data Portability ---
Author Organization ELOISA EMI [facility] [place] [facility] Address [address] [facility] [address] [place] [address] Care Team Providers Care Assistant Winemaker Name Role Phone LARISSA VILLANUEVA Primary Care Provider [phone] Assessment Encounter Date Assessment Date Assessment LastModified by Organization Details LastModified Time 10/27/2023 10/27/2023 We discussed kidney stone prevention. Follow up with [facility] in 6 months. Medical management of kidney stone prevention with potassium citrate. We discussed need for adequate hydration. Patient wishes to proceed with bilateral shockwave lithotripsy. She would prefer to have done this year while deductible is paid. [email or web address] Not available 11/06/2023 09:31:29 12/22/2023 12/22/2023 We discussed kidney stone prevention. Follow up with [facility] in 6 months. Medical management of kidney stone prevention with potassium citrate. We discussed need for adequate hydration. [email or web address] Not available 12/25/2023 11:58:30 06/07/2024 06/07/2024 We discussed kidney stone prevention with adequate hydration, avoidance of sodium and oxalate with increased dietary citrate. Follow-up with [facility]. Potassium citrate for stone prevention. Not available 06/10/2024 18:52:21 06/15/2024 06/15/2024 We reviewed options of management and she wants to proceed with ureteroscopy, laser lithotripsy next available. [email or web address] Not available 06/15/2024 11:32:37 10/11/2024 10/11/2024 [facility] results reviewed and continues to show small bilateral nonobstructing renal stones. We discussed kidney stone prevention with adequate hydration, reduced dietary intake of sodium and oxalate, increased dietary citrate. [email or web address] Not available 10/13/2024 12:26:15 Plan of Treatment Reminders Order Date Submit Date Provider Last Modified By Organization Details Last Modified Time Details Appointments None recorded. Lab urinalysis panel, auto 2023 024 [email or web address] [facility] Extended Services With [address] Epstein, [place], [address], 4 05:43:35 culture, urine 2023 024 [facility], [address] [place] [address], [id number], 4 10:22:32 urinalysis panel, auto 2023 024 [email or web address] 14 [facility] Extended Services With [address] Epstein, [place], [address], 4 08:28:08 culture, urine 2023 024 [facility], [address] [place] [address], [address], 4 11:09:56 culture, urine 2022 023 [email or web address] 14 [facility], [address] [place] [address], [id number], 3 11:05:20 urinalysis panel, auto 2022 023 [email or web address] [facility] Extended Services With [address] Epstein, [place], [address], 3 09:31:31 Referral None recorded. Procedures None recorded. Surgeries cystoscopy, with ureteroscop y, with lithotripsy , with insertion of ureteral stent (SURG) 2023 024 [email or web address] [facility], [address] [facility], [address], [place], [address], 4 17:09:07 extra corporeal shockwave lithotripsy (SURG) 2022 023 [email or web address] [facility] (Surgery Scheduling), [address], [place], [address], 4 16:21:16 Imaging None recorded. Medication Orders hydrocodone 7.5 mg-acetamin ophen 325 mg tablet 2023 024 [id number], [address] [place], [address], 4 11:34:32 ondansetron 4 mg disintegrat ing tablet 2023 024 [facility] [address] [place], [address], 4 11:34:30 tamsulosin 0.4 mg capsule 2023 024 [facility] [address] [place], [address], 4 11:34:29 potassium citrate ER 15 mEq (1,620 mg) tablet,exte nded release 2023 024 [email or web address] 14 [facility] #3016, [address] [place], [address], 4 08:28:08 potassium citrate ER 15 mEq (1,620 mg) tablet,exte nded release 2022 023 [email or web address] 14 [facility] [address] [place], [address], 3 11:05:20 Patient TargetsNo targets recorded. Patient Instructions Encounter Date Encounter Id Patient Instructions Last Modified By Organization Details Last Modified Time 06/07/2024 [id number] learning about healthy weight [email or web address] Not available 06/10/2024 18:52:22 06/15/2024 [id number] learning about depression [email or web address] Not available 06/15/2024 11:32:39 Reason for Referral None Reported. Results Created Date Observation Date Name Description Value Unit Range Abnormal Flag Note LastModifiedBy Organization Detail LastModifiedTime 10/27/2010/31/2023 URINE CULTU RE urine culture COLON Y COUNT : 10,00 0 - 100,0 00 CFU/M L Three or more isola molina; mixed skin segun . Not Available [facility] [address] [place], [address], 10/31/2023 12:09:38 10/27/2010/27/2023 urina lysis panel , auto Unknown Analyte Clean Catch Not Available [facility] Extended Services With [address] Epstein, [place], [address], 10/27/2023 18:01:12 10/27/20 23 10/27/2023 urina lysis panel , auto Unknown Analyte Yellow Not Available [facility] Extended Services With [address] Epstein, [place], [address], 10/27/2023 18:01:12 10/27/20 23 10/27/2023 urina lysis panel , auto Unknown Analyte Slight ly Hazy Not Available [facility] Extended Services With [address] Epstein, [place], [address], 10/27/2023 18:01:12 10/27/20 23 10/27/2023 urina lysis panel , auto Unknown Analyte 1.005 Not Available [facility] Extended Services With [address] Epstein, [place], [address], 10/27/2023 18:01:12 10/27/20 23 10/27/2023 urina lysis panel , auto Unknown Analyte 1.003- 1.035 Not Available [facility] Extended Services With [address] Epstein, [place], [address], 10/27/2023 18:01:12 10/27/20 23 10/27/2023 urina lysis panel , auto Unknown Analyte 7.0 Not Available [facility] Extended Services With [address] [place], [address], 10/27/2023 18:01:12 10/27/20 23 10/27/2023 urina lysis panel , auto Unknown Analyte 5.0-8. 0 Not Available [facility] Extended Services With [address] Epstein, [place], [address], 10/27/2023 18:01:12 10/27/20 23 10/27/2023 urina lysis panel , auto Unknown Analyte 500 Pati/ul (++) Not Available [facility] Extended Services With [address] [place], [address], 10/27/2023 18:01:12 10/27/20 23 10/27/2023 urina lysis panel , auto Unknown Analyte Negati ve Not Available [facility] Extended Services With [address] [place], [address], 10/27/2023 18:01:12 10/27/20 23 10/27/2023 urina lysis panel , auto Unknown Analyte Negati ve Not Available [facility] Extended Services With [address] [place], [address], 10/27/2023 18:01:12 10/27/20 23 10/27/2023 urina lysis panel , auto Unknown Analyte Negati ve Not Available [facility] Extended Services With [address] [place], [address], 10/27/2023 18:01:12 10/27/20 23 10/27/2023 urina lysis panel , auto Unknown Analyte Negati ve Not Available [facility] Extended Services With [address] Epstein, [place], [address], 10/27/2023 18:01:12 10/27/20 23 10/27/2023 urina lysis panel , auto Unknown Analyte Negati ve Not Available [facility] Extended Services With [address] Epstein, [place], [address], 10/27/2023 18:01:12 10/27/20 23 10/27/2023 urina lysis panel , auto Unknown Analyte Normal Not Available [facility] Extended Services With [address] Epstein, [place], [address], 10/27/2023 18:01:12 10/27/20 23 10/27/2023 urina lysis panel , auto Unknown Analyte Normal Not Available [facility] Extended Services With [address] Epstein, [place], [address], 10/27/2023 18:01:12 10/27/20 23 10/27/2023 urina lysis panel , auto Unknown Analyte Negati ve Not Available [facility] Extended Services With [address] Epstein, [place], [address], 10/27/2023 18:01:12 10/27/20 23 10/27/2023 urina lysis panel , auto Unknown Analyte Negati ve Not Available [facility] Extended Services With [address] Epstein, [place], [address], 10/27/2023 18:01:12 10/27/20 23 10/27/2023 urina lysis panel , auto Unknown Analyte Normal Not Available [facility] Extended Services With [address] [place], [address], 10/27/2023 18:01:12 10/27/20 23 10/27/2023 urina lysis panel , auto Unknown Analyte Normal 1 mg/dl Not Available [facility] Extended Services With [address] [place], [address], 10/27/2023 18:01:12 10/27/20 23 10/27/2023 urina lysis panel , auto Unknown Analyte Negati ve Not Available [facility] Extended Services With [address] [place], [address], 10/27/2023 18:01:12 10/27/20 23 10/27/2023 urina lysis panel , auto Unknown Analyte Negati ve Not Available [facility] Extended Services With [address] [place], [address], 10/27/2023 18:01:12 10/27/20 23 10/27/2023 urina lysis panel , auto Unknown Analyte 50 Neri/ul Not Available [facility] Extended Services With [address] [place], [address], 10/27/2023 18:01:12 10/27/20 23 10/27/2023 urina lysis panel , auto Unknown Analyte Negati ve Not Available [facility] Extended Services With [address] [place], [address], 10/27/2023 18:01:12 12/22/19 24 12/26/2023 URINE CULTU RE urine culture COLONY COUNT: > 100,00 0 CFU/ML Three or more isolat es; mixed skin segun. Not Available [facility] [address] [place] [address], [address], 12/26/2023 12:48:29 12/22/19 24 12/22/2023 urina lysis panel , auto Unknown Analyte Clean Catch Not Available [facility] Extended Services With [address] Epstein, [place], [address], 12/22/2023 15:55:53 12/22/19 24 12/22/2023 urina lysis panel , auto Unknown Analyte Yellow Not Available [facility] Extended Services With [address] [place], [address], 12/22/2023 15:55:53 12/22/19 24 12/22/2023 urina lysis panel , auto Unknown Analyte Clear Not Available [facility] Extended Services With [address] [place], [address], 12/22/2023 15:55:53 12/22/19 24 12/22/2023 urina lysis panel , auto Unknown Analyte 1.015 Not Available [facility] Extended Services With [address] Epstein, [place], [address], 12/22/2023 15:55:53 12/22/19 24 12/22/2023 urina lysis panel , auto Unknown Analyte 1.003- 1.035 Not Available [facility] Extended Services With [address] Epstein, [place], [address], 12/22/2023 15:55:53 12/22/19 24 12/22/2023 urina lysis panel , auto Unknown Analyte 7.0 Not Available [facility] Extended Services With [address] Epstein, [place], [address], 12/22/2023 15:55:53 12/22/19 24 12/22/2023 urina lysis panel , auto Unknown Analyte 5.0-8. 0 Not Available [facility] Extended Services With [address] [place], [address], 12/22/2023 15:55:53 12/22/19 24 12/22/2023 urina lysis panel , auto Unknown Analyte 500 Ptai/ul (++) Not Available [facility] Extended Services With [address] [place], [address], 12/22/2023 15:55:53 12/22/19 24 12/22/2023 urina lysis panel , auto Unknown Analyte Negati ve Not Available [facility] Extended Services With [address] [place], [address], 12/22/2023 15:55:53 12/22/19 24 12/22/2023 urina lysis panel , auto Unknown Analyte Negati ve Not Available [facility] Extended Services With [address] [place], [address], 12/22/2023 15:55:53 12/22/19 24 12/22/2023 urina lysis panel , auto Unknown Analyte Negati ve Not Available [facility] Extended Services With [address] [place], [address], 12/22/2023 15:55:53 12/22/19 24 12/22/2023 urina lysis panel , auto Unknown Analyte Negati ve Not Available [facility] Extended Services With [address] [place], [address], 12/22/2023 15:55:53 12/22/19 24 12/22/2023 urina lysis panel , auto Unknown Analyte Negati ve Not Available [facility] Extended Services With [address] [place], [address], 12/22/2023 15:55:53 12/22/19 24 12/22/2023 urina lysis panel , auto Unknown Analyte Normal Not Available [facility] Extended Services With [address] [place], [address], 12/22/2023 15:55:53 12/22/19 24 12/22/2023 urina lysis panel , auto Unknown Analyte Normal Not Available [facility] Extended Services With [address] [place], [address], 12/22/2023 15:55:53 12/22/19 24 12/22/2023 urina lysis panel , auto Unknown Analyte 15 mg/dl (Sm) Not Available [facility] Extended Services With [address] [place], [address], 12/22/2023 15:55:53 12/22/19 24 12/22/2023 urina lysis panel , auto Unknown Analyte Negati ve Not Available [facility] Extended Services With [address] [place], [address], 12/22/2023 15:55:53 12/22/19 24 12/22/2023 urina lysis panel , auto Unknown Analyte Normal Not Available [facility] Extended Services With [address] [place], [address], 12/22/2023 15:55:53 12/22/19 24 12/22/2023 urina lysis panel , auto Unknown Analyte Normal 1 mg/dl Not Available [facility] Extended Services With [address] [place], [address], 12/22/2023 15:55:53 12/22/19 24 12/22/2023 urina lysis panel , auto Unknown Analyte 1 mg/dl (+) Not Available [facility] Extended Services With [address] [place], [address], 12/22/2023 15:55:53 12/22/19 24 12/22/2023 urina lysis panel , auto Unknown Analyte Negati ve Not Available [facility] Extended Services With [address] [place], [address], 12/22/2023 15:55:53 12/22/19 24 12/22/2023 urina lysis panel , auto Unknown Analyte 50 Neri/ul Not Available [facility] Extended Services With [address] [place], [address], 12/22/2023 15:55:53 12/22/19 24 12/22/2023 urina lysis panel , auto Unknown Analyte Negati ve Not Available [facility] Extended Services With [address] [place], [address], 12/22/2023 15:55:53 10/11/20 24 10/15/2024 URINE CULTU RE urine culture COLON Y COUNT : > 100,0 00 CFU/M L Three or more isola molina; mixed uroge nital segun . Not Available [facility] [address] [facility], [place], [address], 10/15/2024 09:23:01 10/11/20 24 10/11/2024 urina lysis panel , auto Unknown Analyte Clean Catch Not Available [facility] Extended Services With [address] [place], [address], 10/11/2024 16:43:25 10/11/20 24 10/11/2024 urina lysis panel , auto Unknown Analyte Yellow Not Available [facility] Extended Services With [address] [place], [address], 10/11/2024 16:43:25 10/11/20 24 10/11/2024 urina lysis panel , auto Unknown Analyte Clear Not Available [facility] Extended Services With [address] Epstein, [place], [address], 10/11/2024 16:43:25 10/11/20 24 10/11/2024 urina lysis panel , auto Unknown Analyte 1.010 Not Available [facility] Extended Services With [address] Epstein, [place], [address], 10/11/2024 16:43:25 10/11/20 24 10/11/2024 urina lysis panel , auto Unknown Analyte 1.003- 1.035 Not Available [facility] Extended Services With [address], [place], [address], 10/11/2024 16:43:25 10/11/20 24 10/11/2024 urina lysis panel , auto Unknown Analyte 7.0 Not Available [facility] Extended Services With [address], [place], [address], 10/11/2024 16:43:25 10/11/20 24 10/11/2024 urina lysis panel , auto Unknown Analyte 5.0-8. 0 Not Available [facility] Extended Services With [address], [place], [address], 10/11/2024 16:43:25 10/11/20 24 10/11/2024 urina lysis panel , auto Unknown Analyte 500 Pati/ul (++) Not Available [facility] Extended Services With [address], [place], [address], 10/11/2024 16:43:25 10/11/20 24 10/11/2024 urina lysis panel , auto Unknown Analyte Negati ve Not Available [facility] Extended Services With [address] Epstein, [place], [address], 10/11/2024 16:43:25 10/11/20 24 10/11/2024 urina lysis panel , auto Unknown Analyte Negati ve Not Available [facility] Extended Services With [address] [place], [address], 10/11/2024 16:43:25 10/11/20 24 10/11/2024 urina lysis panel , auto Unknown Analyte Negati ve Not Available [facility] Extended Services With [address] [place], [address], 10/11/2024 16:43:25 10/11/20 24 10/11/2024 urina lysis panel , auto Unknown Analyte Negati ve Not Available [facility] Extended Services With [address] [place], [address], 10/11/2024 16:43:25 10/11/20 24 10/11/2024 urina lysis panel , auto Unknown Analyte Negati ve Not Available [facility] Extended Services With [address] [place], [address], 10/11/2024 16:43:25 10/11/20 24 10/11/2024 urina lysis panel , auto Unknown Analyte Normal Not Available [facility] Extended Services With [address] [place], [address], 10/11/2024 16:43:25 10/11/20 24 10/11/2024 urina lysis panel , auto Unknown Analyte Normal Not Available [facility] Extended Services With [address] [place], [address], 10/11/2024 16:43:25 10/11/20 24 10/11/2024 urina lysis panel , auto Unknown Analyte Negati ve Not Available [facility] With [address], [place], [address], 10/11/2024 16:43:25 10/11/20 24 10/11/2024 urina lysis panel , auto Unknown Analyte Negati ve Not Available [facility] Extended Services With [address], [place], [address], 10/11/2024 16:43:25 10/11/20 24 10/11/2024 urina lysis panel , auto Unknown Analyte Normal Not Available [facility] Extended Services With [address], [place], [address], 10/11/2024 16:43:25 10/11/20 24 10/11/2024 urina lysis panel , auto Unknown Analyte Normal 1 mg/dl Not Available [facility] With [address], [place], [address], 10/11/2024 16:43:25 10/11/20 24 10/11/2024 urina lysis panel , auto Unknown Analyte Negati ve Not Available [facility] Extended Services With [address] Epstein, [place], [address], 10/11/2024 16:43:25 10/11/20 24 10/11/2024 urina lysis panel , auto Unknown Analyte Negati ve Not Available [facility] With [address], [place], [address], 10/11/2024 16:43:25 10/11/20 24 10/11/2024 urina lysis panel , auto Unknown Analyte Negati ve Not Available [facility] [place] Extended Services With [facility] [address], [place], [address], 10/11/2024 16:43:25 10/11/20 24 10/11/2024 urina lysis panel , auto Unknown Analyte Negati ve Not Available [facility] [place] Extended Services With [facility] [address], [place], [address], 10/11/2024 16:43:25 10/26/20 23 10/25/2023 XR, abdom en, 1 view No observ ation record ed. [email or web address] Not Available 2022 12:52:43 04/23/20 24 04/23/2024 XR, abdom en, 1 view No observ ation record ed. [email or web address] Not Available 2023 10:20:49 06/15/20 24 06/15/2024 CT, abdom en + pelvi s, w/o contr ast No observ ation record ed. [email or web address] [facility] (Radiology) [address] [place], [address], 06/15/2024 11:35:22 06/18/20 24 06/18/2024 XR, abdom en, 1 view No observ ation record ed. [email or web address] [facility] Centralized Scheduling [address] [place], [address], 06/22/2024 09:05:33 10/12/20 24 10/08/2024 XR, abdom en, 1 view No observ ation record ed. [email or web address] Centralized Scheduling [address] [place], [address], 10/16/2024 17:29:52 Result Notes None recorded. Problems Name Problem SNOMED Code Status Onset Date Resolution Date Notes Provider Name and Address Organization Details Recorded Time Kidney stone 71280561 Active 017 ELOISA Mcdonough - [facility] 09/08/2017 15:24:19 Problem Notes None recorded. Procedures Surgical History Date Name Laterality Status Provider Name and Address Organization Details Recorded Time 3 Thyroid Surgery completed Jovanelenarturo Templet [facility] 04/21/2023 14:01:41 3 lobectomy of thyroid gland completed Kareen Levin [facility] 02/11/2023 14:40:26 1 EXTRA CORPOREAL SHOCKWAVE LITHOTRIPSY (SURG) completed [facility] 08/26/2022 15:15:13 9 CYSTOSCOPY, WITH URETEROSCOPY, WITH LITHOTRIPSY, WITH INSERTION OF URETERAL STENT (SURG) completed [facility] 10/10/2019 16:27:49 9 CYSTOSCOPY, WITH URETEROSCOPY, WITH LITHOTRIPSY, WITH INSERTION OF URETERAL STENT (SURG) completed [facility] 12/07/2019 13:05:02 7 Kidney Stones completed [facility] 09/08/2017 15:24:36 7 CYSTOSCOPY, WITH URETEROSCOPY, WITH LITHOTRIPSY, WITH INSERTION OF URETERAL STENT (SURG) completed JOMAR JENKINS MD [address] [place] [address], [address] 06/04/2017 10:13:25 Kidney Stones completed [facility] 01/20/2017 14:07:46 Unlisted px [facility] 01/20/2017 14:07:59 Imaging Results None recorded. Procedure Notes None recorded. Medical Equipment None Reported. Allergies Allergen ID Allergen Name Allergen Category Reaction Reaction Severity Criticality Documentation Date Start Date Code Code System Note Provider Name and Address Organization Details Recorded Time 420701 Product containin g penicilli n (product) medicatio n Not available Not available Not available 01/20/2017 91582 8001 SNOMED [facility] 7 14:04:16 483153 Keflex medicatio n Not available Not available Not available 06/10/202295538 7 RxNorm [facility] 2 13:34:49 Medications Name [...] Available Flonase 50 mcg/Actuati on nasl susp Dupont 1 spray every day by intranasa l [...] Not Available Not Available Not Available Afluria 0361-9126 (PF) 45 mcg(15 mcg x 3)/0.5 mL [...] Available Not Available Not Available Flucelvax Quad 0365-6661 (PF) 60 mcg (15 mcg x 4)/0.5 mL IM syringe 01/12 completed Not Available Not Available Not Available Afluria Quad (PF) 60 mcg (15 mcg x [...] Updated DateTime 12/22/2023 170.18 cm 37.6 kg/m2 557165.17 g Jovanelene [facility] 12/22/2023 15:54:24 Date Recorded Body height Body mass index (BMI) Body weight Provider Name and Address Organization Details Last Updated DateTime 06/07/2024 170.18 cm 37.6 kg/m2 417109.17 g Jovanelene [facility] 06/07/2024 16:27:59 Date Recorded Body height Body mass index (BMI) Body weight Provider Name and Address Organization Details Last Updated DateTime 06/15/2024 170.18 cm 37.6 kg/m2 340370.17 g Cass Mora [facility] 06/15/2024 11:17:32 Date Recorded Body height Body mass index (BMI) Body weight Provider Name and Address Organization Details Last Updated DateTime 10/11/2024 170.18 cm 37.6 kg/m2 998180.17 g [facility] 16:21:07 Date Recorded Body height Body mass index (BMI) Body weight Provider Name and Address Organization Details Last Updated DateTime 10/27/2023 170.18 cm 37.6 kg/m2 300669.17 g Murelene Darrel [facility] 10/27/2023 18:00:23 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 Question Answer Notes LastModified by Organizat ion Details LastModified Time Tobacco Smoking Status [facility] 14:07:34 How Much Tobacco Do You Chew? None [email or web address] Information not available 10/08/2019 What Was The Date Of Your Most Recent Tobacco Screening? 10/11/2024 [email or web address] Information not available 10/11/2024 How Much Tobacco Do You Smoke? No Information not available 10/08/2019 Sex: Female Functional Status Question Answer Note LastModified by Organizat ion Details LastModified Time What is your level of alcohol consumption? Occasional [email or web address] Information not available 01/20/2017 Mental Status None recorded. Family History Relationship Description Onset Age of this Age Resolved Age Notes LastModified by Organization Details LastModified Time Unspecified Relation Diabetes mellitus [email or web address] Not available 2016 14:07:17 Unspecified Relation Family history of malignant neoplasm [email or web address] Not available 2016 14:07:23 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 Condition Response Allergies/Hayfever Y Kidney Stones Y Anesthesia Complications N Diabetes N Anxiety Disorder Y Bleeding Disorder N Arthritis Y Cancer N High PSA Y Hypertension N Gynecological HistoryNo gynecological history recorded. Obstetrics History GPAL:G 0 P 0 0 0 0 Past Encounters Encounter ID Performer Location Encounter Start Date Encounter Closed Date Diagnosis/Indication Diagnosis SNOMED-CT Code Diagnosis ICD10 Code Diagnosis Note [id number] [facility] [address] [address] 01/20/2017 13:35:35 01/27/2017 18:29:55 Recurrent urinary tract infection 029344551 N39.0 Kidney stone 89632062 N2 0.0 [id number] [facility] [address] [address] 03/17/2017 15:53:55 03/29/2017 13:59:25 Kidney stone [id number] N20.0 [id number] JOMAR JENKINS MD [facility] [address] [place] [address] 05/30/2017 13:46:27 05/30/2017 16:39:35 Ureteric stone 49091856 N20.1 [id number] JOMAR JENKINS MD [facility] [address] [place] [phone] 06/06/2017 14:01:34 06/15/2017 11:26:11 Kidney stone 26010353 N20.0 [id number] JOMAR JENKINS MD SURGERY SCHEDULE [address] [place] [address] 09/06/2017 12:02:35 09/06/2017 12:05:22 Postoperative pain 369832439 G89.18 [id number] JOMAR JENKINS MD [facility] [address] [address] 09/08/2017 15:11:16 09/16/2017 14:12:36 Urinary tract infectious disease 37832442 N39.0 Kidney stone 78680675 N2 0.0 [id number] JOMAR JENKINS MD [facility] [place] [address] [address] [address] 01/12/2018 16:03:14 01/19/2018 17:57:28 Kidney stone 62175437 N20.0 [id number] JOMAR JENKINS MD [place] [address] [address] [address] 04/13/2018 16:18:20 04/19/2018 10:23:26 Kidney stone 35146301 N20.[address] ess incontinence 75585068 N39.3 [id number] JOMAR JENKINS MD SURGERY SCHEDULE [address] [place] [address] 1 05/02/2018 12:37:08 05/02/2018 12:43:17 Postoperative pain 847624371 G89.18 Postoperative nausea 645 14046 R11.0 [id number] JOMAR JENKINS MD [facility] [address] [address] 06/01/2018 14:03:58 06/08/2018 09:18:51 Female stress incontinence 95083563 N39.3 [id number] JOMAR JENKINS MD [facility] [address] [address] 07/13/2018 15:58:52 08/01/2018 08:28:57 Female stress incontinence 00026501 N39.3 Kidney stone 57971104 N2 0.0 [id number] JOMAR JENKINS MD [facility] [address] [place] [address] 0 11/06/2018 14:39:03 11/06/2018 16:18:12 Kidney stone 92245398 N20.0 [id number] JOMAR JENKINS MD [facility] [address] [place] [address] 8 01/18/2019 16:46:50 01/29/2019 09:50:19 Kidney stone 47052423 N20.0 [id number] JOMAR JENKINS MD [facility] [address] [place] [address] 8 06/21/2019 13:22:40 06/22/2019 11:29:21 Kidney stone 43914448 N20.0 [id number] JOMAR JENKINS MD [facility] [address] [place] [address] 0 10/08/2019 14:40:47 10/08/2019 15:37:31 Renal colic 8446782 N23 Nausea 251736711 R11.0 Kidney stone 75991740 N2 0.0 [id number] JOMAR JENKINS MD [facility] [address] [place] [address] 8 10/18/2019 15:30:34 10/29/2019 09:17:56 Kidney stone 49958305 N20.0 [id number] JOMAR JENKINS MD [facility] [address] [place] [address] 0 03/06/2020 10:52:08 03/06/2020 11:57:49 Kidney stone 94766828 N20.0 [id number] JOMAR JENKINS MD [facility] [address] [place] [address] 8 10/30/2020 16:09:29 10/31/2020 09:32:29 Urinary tract infectious disease 40053576 N39.0 Kidney stone 72268089 N2 0.0 [id number] JOMAR JENKINS MD [facility] [address] [place] [address] 02/17/2021 10:10:36 02/17/2021 11:10:26 Kidney stone 15727685 N20.0 Nausea 366096983 R11.0 [id number] JOMAR JENKINS MD [facility] [address] [place] [address] 8 04/23/2021 15:42:16 04/24/2021 16:47:52 Kidney stone 03840226 N20.0 Female str ess incontinence 31123682 N39.3 [id number] JOMAR JENKINS MD [facility] [address] [address] 05/28/2021 13:34:45 06/03/2021 13:36:03 Kidney stone 58586064 N20.0 [id number] JOMAR JENKINS MD [facility] [address] [address] 09/10/2021 15:48:39 09/10/2021 20:03:00 Kidney stone 48926032 N20.0 [id number] JOMAR JENKINS MD [facility] [address] [address] 03/11/2022 15:58:28 03/15/2022 18:21:01 Urinary tract infectious disease 36665401 N39.0 Kidney stone 57395188 N2 0.0 [id number] JOMAR JENKINS MD [facility] [address] [place] [address] 8 06/10/2022 13:22:52 06/11/2022 14:23:38 Urinary tract infectious disease 43148107 N39.0 Kidney stone 62500730 N2 0.0 [id number] JOMAR JENKINS MD [facility] [address] [place] [address] 10/07/2022 16:57:48 10/14/2022 14:35:22 Kidney stone 01419118 N20.0 Urinary tr act infectious disease 87790999 N39.0 [id number] EMILE JAIMES MD [facility] [address] [place] [address] 02/11/2023 14:16:48 02/11/2023 15:13:01 Thyroid nodule 110687288 E04.1 02/11/2023 - soft incision, clean and intact; healing well with no signs of infections [id number] JOMAR JENKINS MD [facility] [address] [place] [id number] 04/21/2023 13:29:14 04/21/2023 16:03:14 Kidney stone 85775249 N20.0 Renal colic 2334072 N23 [id number] JOMAR JENKINS MD [facility] [address] ,[address] [place] [address] 10/27/2023 16:02:00 10/31/2023 18:42:43 Kidney stone 95197803 N20.0 Renal colic 9946931 N23 Urinary tr act infectious disease 00765237 N39.0 [id number] JOMAR JENKINS MD [facility] [address] ,[address] [place] [address] 12/22/2023 15:42:28 12/22/2023 18:56:41 Kidney stone 54304360 N20.0 Renal colic 2850399 N23 Urinary tr act infectious disease 95825823 N39.0 [id number] JOMAR JENKINS MD [facility] [address] ,[address] [place] [address] 06/07/2024 15:09:31 06/07/2024 19:10:00 Kidney stone 12586082 N20.0 Renal colic 7395053 N23 [id number] JOMAR JENKINS MD [facility] [address] [place] [address] 06/15/2024 11:06:59 06/15/2024 11:38:33 Ureteric stone 48884197 N20.1 Renal colic 4722163 N23 [id number] JOMAR JENKINS MD [facility] [place] [facility] [address] [address] 10/11/2024 16:03:12 10/11/2024 18:42:35 Urinary tract infectious disease 05299480 N39.0 Kidney stone 28839677 N2 0.0 Health Concerns Section Related Observation LastModified by Organization Detai ls LastModified Time None Recorded Concern Status LastModified by Organization Details LastModified Time None Recorded Advance Directives Directive None Recorded Payers Insurance Date Sequence Insurance Name Policy Number Policy Renee Covered Member ID Renee Member ID Guarantor Name 03/30/2021 PAYMENT PLAN Celine Dc 10/14/2024 1 [place] [id number] Celine Dc [id number] Celine Dc Notes Date Note Type [...] gross hematuria or dysuria. JOMAR JENKINS MD [address] [place] [address], [phone], [facility] 11/06/2023 09:31:54 12/22/2023 text/html 38-year-old femsadie le in the office for follow-up evaluation of urolithiasis status post ESWL, October 2023. She has been taking potassium citrate for kidney stone prevention. No gross hematuria. No dysuria. JOMAR JENKINS MD [address] [place] [address], [phone], [facility] 12/25/2023 11:58:53 06/07/2024 text/html 39-year-old gareth le in the office for follow-up evaluation of urolithiasis status post ESWL, October 2023. She has been taking potassium citrate for kidney stone prevention. No current flank pain or abdominal pain. KUB from 04/23/2024 shows tiny left renal stone and 2 right renal stones, less than 4 mm. JOMAR JENKINS MD [address] [place] [address], [phone], [facility] 06/10/2024 18:53:11 06/15/2024 text/html 39-year-old femsadie brown in the office for follow-up evaluation of urolithiasis She has history of ESWL, October 2023. She has been taking potassium citrate for kidney stone prevention. Right flank pain since [address] AP ([facility]) shows 3 mm right proximal ureteral stone. KUB from 04/23/2024 shows tiny left renal stone and 2 right renal stones, less than 4 mm. JOMAR JENKINS MD [address] [place] [address], [phone], [facility] 06/15/2024 11:34:42 10/11/2024 text/html 39-year-old gareth brown in the office [...] this week has not been faxed from [facility] and we are awaiting results for review. JOMAR JENKINS MD [address] [place] [address], [phone], [facility] 10/13/2024 12:26:31 OBGyn Episode No OBEpisode recorded.
--- OUTSIDE RECORDS SUMMARY | 2025-05-09 13:54 | XMS_ITS | Encounter Summary ---
Author Organization [facility] Address [address] [place] [address] Care Team Providers Care Cryogenics Repairer Name Role Phone Dustin Gomez MD Primary Care Provider Unavailabl e Doctor, No Primary Care Provider Unavailabl e Encounter Details Date Type Department Care Team (Latest Contact Info) Description 04/09/2010 Transcribe Orders [facility] [address] [place] [address] Dustin Gomez MD Hypopotassemia (Primary Dx) 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 Tobacco Use Types Packs/Day Years [...] on file documented as of this encounter Results * (ABNORMAL) Potassium (04/09/2010 8:10 AM EDT) POTASSIUM 3.4(L) 3.6 - 5.0 MMOL/L [facility] 04/09/2010 8:10 AM EDT 04/09/2010 11:51 AM EDT us Dustin Gomez MD CHEMISTRY ORDERABLES Final Resul t [facility] [address] [facility] [place] [address] documented in this encounter Visit Diagnoses Diagnosis Hypopotassemia- Primary documented in this encounter Care Teams Cryogenics Repairer Relationship Specialty Start Date End Date Dustin Gomez MD PCP - General 08/02/08 02/11/14 Vicki Villavicencio [place] PCP - General Family Medicine 02/12/14 12/30/17 documented as of this encounter
--- OUTSIDE RECORDS SUMMARY | 2025-05-09 13:54 | XMS_ITS | Encounter Summary ---
Author Organization [employer] Address [address] [place] [address] Care Team Providers Care Revenue Inspector Name Role Phone Tyrell Magana MD Primary Care Provider [phone] Encounter Details Date Type Department Care Team (Latest Contact Info) Description 05/06/2025 Travel 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 Tobacco Use Types Packs/Day Years [...] Date Surinder rded Speak language other than Thai at home Not on file 12/16/2023 Want [...] on filedocumented in this encounter Care Teams Revenue Inspector Relationship Specialty Start Date End Date Tyrell Magana MD [address] [place] [address] [place] [id number] PCP - General Family Medicine 11/15/23 documented as of this encounter
--- OUTSIDE RECORDS SUMMARY | 2025-05-09 13:54 | XMS_ITS | Data Portability ---
Author Organization [facility],, Main Office Address [address] [place] [address] Assessment Encounter Date Assessment Date Assessment LastModified by Organization Details LastModified Time 03/06/2025 03/06/2025 Annual gynecological exam performed. Patient will come back in a year unless there are new symptoms. [email or web address] Not available 03/06/2025 09:52:21 Plan of Treatment Reminders Order Date Submit Date Provider Last Modified By Organization Details Last Modified Time Details Appointments POST-OP 2024 10:00A JASMINE Olguin Not available Not available Not available Lab urinalysi s, dipstick 2024 025 [facility], [address], [place], [address], 03/31/2025 15:48:51 test, urine 2024 025 [facility], [address], [place], [address], 03/31/2025 15:48:51 urinalysi s, dipstick 2024 025 [facility] Main Office, [address], [place], [address], 03/31/2025 12:44:30 test, urine 2024 025 [facility], [address], [place], [address], 03/31/2025 12:44:30 urinalysi s, dipstick 2024 025 [facility] Main Office, [address], [place], [address], 03/06/2025 17:18:46 test, urine 2024 025 [facility] Main Office, [address], [place], [address], 03/06/2025 17:18:46 Referral None recorded. Procedures None recorded. Surgeries None recorded. Imaging None recorded. Medication Orders None recorded. Patient TargetsNo targets recorded. Patient Instructions Encounter Date Encounter Id Patient Instructions Last Modified By Organization Details Last Modified Time 03/06/2025 [id number] heavy menstrual periods: care instructions [email or web address] Not available 03/06/2025 17:18:46 Risks of not following up discussed. Questions answered. Potential problems explained with risks Distinct and separate issues addressed beyond annual gynecology exam. Added 35-45 minutes on to visit. Patient's questions answered, concerns addressed. [email or web address] Not available 03/29/2025 13:33:06 03/13/2025 [id number] wants to do endo ablation, sis endo bx scheduled gveloudis Not available 03/13/2025 21:00:25 Reason for Referral None Reported. Results Created Date Observation Date Name Description Value Unit Range Abnormal Flag Note LastModifiedBy Organization Detail LastModifiedTime 03/06/2003/08/2025 PAP TEST THIN PREP Pap test thin prep Negati ve for Intrae pithel ial Lesion or Malign nanci normal ACCES ILDEFONSO #: [id number] Sourc e: Cervi dru/E ndoce rvica l LMP: 025 Date Taken : 03/06 Speci men Type: ThinP rep Vial Date Repor anand: 2024 Clini dru Data: Last Pap: wnl (404 2023) Cytot ech: MODESTO Dodson( CP) Date Repor anand: 2024 Speci men Adequ acy: Satis facto ry for evalu ation Endoc ervic al/tr ansfo rmati on zone compo nent prese nt Gener al Categ oriza tion: NEGAT MARLIN FOR INTRA EPITH ELIAL LESIO N OR MALIG SANDOR This speci men has been jeff zed by the ThinP rep Imagi ng Syste m, an inter activ e compu ter syste m which chris ts the lab in the scree [place] of ThinP rep Pap Test slide s. Follo wing imagi ng, the slide was revie wed by a Cytot echno logis t and/o r Patho logis t. Cervi dru cytol ogy is a scree ashley test prima rily for squam ous cance rs and precu rsors and has assoc iated false -nega tive and false -posi tive resul ts. New techn ologi es such as liqui d-bas ed prepa ratio ns may decre ase but will not elimi shelly all false -nega tive resul ts. Regul ar sampl ing and follo w-up of unexp argenis d clini dru signs and sympt oms are recom amisha d to minim ize false negat marlin resul ts. End of Repor t Techn ical servi luis provi ded by [facility] [employer], d/b/a Path [facility], [address] [place] [address] Maura ramachandran MD, Labor atory Direc tor. Case revie wed and diagn osis rende red at [facility] [employer], d/b/a [facility], [address] [place] [address] Maura ramachandran MD, Labor atory Direc tor. CONFI DENTI AL Not Available [facility] ([facility]) [address], [place], [address], 03/08/2025 12:11:10 03/06/20 25 03/06/2025 urina lysis , dipst ick Leukocytes trace Not Available Main Of fice [address], [place], [address], 03/06/2025 09:53:49 03/06/2003/06/2025 urina lysis , dipst ick Nitrite negati ve Not Available Main Office [address], [place], [address], 03/06/2025 09:53:49 03/06/20 25 03/06/2025 urina lysis , dipst ick Urobilinogen - Not Available Main Office [address], [place], [address], 03/06/2025 09:53:49 03/06/2003/06/2025 urina lysis , dipst ick Protein - Not Available Main Offic e [address], [place], [address], 03/06/2025 09:53:49 03/06/2003/06/2025 urina lysis , dipst ick pH 6.0 Not Available Main Offic e [address], [place], [address], 03/06/2025 09:53:49 03/06/2003/06/2025 urina lysis , dipst ick Specific [place] Patent 1.005 Not Available Main O ffice [address], [place], [address], 03/06/2025 09:53:49 03/06/2003/06/2025 urina lysis , dipst ick Ketone - Not Available Main Offic e [address], [place], [address], 03/06/2025 09:53:49 03/06/20 25 03/06/2025 urina lysis , dipst ick Bilirubin - Not Available Main Off ice [address], [place], [address], 03/06/2025 09:53:49 03/06/20 25 03/06/2025 pregn nanci test, urine HCG negati ve Not Available Main Office [address], [place], [address], 03/06/2025 09:53:58 03/13/20 25 03/13/2025 pregn nanci test, urine HCG negati ve Not Available Main Office [address], [place], [address], 03/13/2025 15:53:15 03/13/20 25 03/13/2025 urina lysis , dipst ick Leukocytes - Not Available Main Of fice [address], [place], [address], 03/13/2025 15:53:06 03/13/20 25 03/13/2025 urina lysis , dipst ick Nitrite negati ve Not Available Main Office [address], [place], [address], 03/13/2025 15:53:06 03/13/20 25 03/13/2025 urina lysis , dipst ick Urobilinogen - Not Available Main Office [address], [place], [address], 03/13/2025 15:53:06 03/13/20 25 03/13/2025 urina lysis , dipst ick Protein - Not Available Main Offic e [address], [place], [address], 03/13/2025 15:53:06 03/13/20 25 03/13/2025 urina lysis , dipst ick pH 6.0 Not Available Main Offic e [address], [place], [address], 03/13/2025 15:53:06 04/16/03/13/2025 urina lysis , dipst ick Specific [place] Patent 1.005 Not Available Main O ffice [address], [place], [address], 03/13/2025 15:53:06 03/13/2003/13/2025 urina lysis , dipst ick Ketone - Not Available Main Offic e [address], [place], [address], 03/13/2025 15:53:06 03/13/2003/13/2025 urina lysis , dipst ick Bilirubin - Not Available Main Off ice [address], [place], [address], 03/13/2025 15:53:06 03/27/20 25 04/01/2025 SURGI DRU PATHO LOGY surgical pathology View Report ACCCRISTOPHER ILDEFONSO #: [id number] Patie nt Name: MARGY ZAPATA Age-S ex-DO B: 39y F [birth year] Proce dure Date: 03/27 Acccristopher ildefonso Date: Pt Acct# : Repor t Date: Locat ion: OFFIC E Physi timothy( s): Mega Casey dis, DO P A T H O L O G Y R E P O R T DIAGN OSIS: Endom etriu m, biops y: Inact marlin endom etriu m. Negat marlin for hyper plasi a or malig sandor . Mckay Jones MD elect richardson aldrich 04/01 02:08 PM Gross Descr iptio n: Recei shabbir in forma ney label ed Reinaldo aldrich, Margy moncada and sigifredom etria l biops y are multi ple piece s of rocha-b rown tissu e aggre gatin g 1.4 x 0.5 x less than 0.1 cm. The speci mens are filte red and submi tted entir finn in casse tte 1A, M/1. (R, RR13, pc9) Gross ing servi luis provi ded by [facility] [employer] [facility] log[facility] [employer], d/b/a [facility] [address] [place], [address] Maura ramachandran MD, [facility]. Micro scopi c Descr iptio n: Micro scopi c exami natio n is perfo rmed. Clini dru Histo ry: N92.0 Exces sive and frequ ent menst ruati on with regul ar cycle Speci men List: Endom etria l biops y Unles s speci fied other baca above , the quali ty of the H and E and any other stain s perfo rmed is satis facto ry, and any inter nal or exter nal posit marlin and negat marlin contr ols react appro priat finn. End of Repor t Techn ical servi luis provi ded by [facility] [employer] Patho logis [employer], d/b/a [employer] [facility], [address] [place] [address] Maura ramachandran MD, [facility]. Case revie wed and diagn osis rende red at [facility] [employer] [facility] [employer], d/b/a [facility], [address], [place] [address] Inderjit Ponce MD, [facility]. CONFI DENTI AL Not Available [facility] ([facility]) [address], [place], [address], 04/01/2025 15:12:19 03/27/20 25 03/27/2025 urina lysis , dipst ick Leukocytes - Not Available Main Of fice [address], [place], [address], 03/27/2025 16:02:31 03/27/20 25 03/27/2025 urina lysis , dipst ick Nitrite negati ve Not Available Main Office [address], [place], [address], 03/27/2025 16:02:31 03/27/20 25 03/27/2025 urina lysis , dipst ick Urobilinogen - Not Available Main Office [address], [place], [address], 03/27/2025 16:02:31 03/27/20 25 03/27/2025 urina lysis , dipst ick Protein - Not Available Main Offic e [address], [place], [address], 03/27/2025 16:02:31 03/27/20 25 03/27/2025 urina lysis , dipst ick pH 6.0 Not Available Main Offic e [address], [place], [address], 03/27/2025 16:02:31 03/27/20 25 03/27/2025 urina lysis , dipst ick Specific [place] Patent 1.005 Not Available Main O ffice [address], [place], [address], 03/27/2025 16:02:31 03/27/20 25 03/27/2025 urina lysis , dipst ick Ketone - Not Available Main Offic e [address], [place], [address], 03/27/2025 16:02:31 03/27/20 25 03/27/2025 urina lysis , dipst ick Bilirubin - Not Available Main Off ice [address], [place], [address], 03/27/2025 16:02:31 03/27/20 25 03/27/2025 urina lysis , dipst ick Glucose Not Available Main Offic e [address], [place], [address], 03/27/2025 16:02:31 03/27/20 25 03/27/2025 pregn nanci test, urine HCG negati ve Not Available Main Office [address], [place], [address], 03/27/2025 16:02:40 03/13/20 25 03/13/2025 imagi ng/di agnos tic resul t No observ ation record ed. [id number], [place], [address], 03/13/2025 16:54:53 03/13/20 25 03/13/2025 imagi ng/di agnos tic resul t No observ ation record ed. [id number], [place], [address], 03/13/2025 16:55:06 03/27/20 25 03/27/2025 imagi ng/di agnos tic resul t No observ ation record ed. [id number], [place], [address], 03/27/2025 17:03:25 03/27/20 25 03/27/2025 imagi ng/di agnos tic resul t No observ ation record ed. [id number], [place], [address], 03/27/2025 17:03:40 Result Notes None recorded. Procedures Surgical History Date Name Laterality Status Provider Name and Address Organization Details Recorded Time 5 Date of Last Pap Smear completed [facility], 03/06/2025 09:53:36 4 Date of Last Mammogram completed [facility], 03/06/2025 10:00:47 Kidney endoscopy completed JASMINE Lira [address], [place], [address], [facility], 01/14/2020 11:20:09 Imaging Results None recorded. Procedure Notes None recorded. Medical Equipment None Reported. Allergies Allergen ID Allergen Name Allergen Category Reaction Reaction Severity Criticality Documentation Date Start Date Code Code System Note Provider Name and Address Organization Details Recorded Time 794 Product containin g penicilli n (product) medicatio n anaphylax is severe Not available 12/12/2017 55547 8001 SNOMED Mitra Garcia [facility], 8 11:40:08 Medications Name [...] Available Not Available ranitidine 150 mg tablet 03/01 /2021 completed Not Available Not Available Not Available [...] Relief 50 mcg/actuati on nasal spray,suspe nsion [place] 1 spray every day by intranasa l [...] Available Not Available Not Available Flucelvax Quad 9418-3317 (PF) 60 mcg (15 mcg x 4)/0.5 [...] Updated DateTime 03/06/2025 167.64 cm 43.7 kg/m2 093762.5 3 g 83 /min 97.4 [degF] Dave Johnson [facility], 09:53:14 Date Recorded Systolic blood pressure Diastolic blood pressure Provider Name and Address Organization Details Last Updated DateTime 03/06/2025 160 mm[Hg] 100 mm[Hg] Nicolerosalee King [facility], 03/06/2025 10:27:41 Date Recorded Body height Body mass index (BMI) Body weight Heart rate Body temperature Systolic blood pressure Diastolic blood pressure Provider Name and Address Organization Details Last Updated DateTime 04/16/202 5 167.64 cm 43.6 kg/m2 622786. 94 g 85 /min 96.5 [degF] 169 mm[Hg] 112 mm[Hg] [facility], 5 15:52:24 Date Recorded Body height Body mass index (BMI) Body weight Heart rate Body temperature Systolic blood pressure Diastolic blood pressure Provider Name and Address Organization Details Last Updated DateTime 5 167.64 cm 43.4 kg/m2 045146. 35 g 95 /min 96.7 [degF] 142 mm[Hg] 99 mm[Hg] [facility], 5 16:01:48 Date Recorded Body height Body mass index (BMI) Body weight Heart rate Body temperature Systolic blood pressure Diastolic blood pressure Provider Name and Address Organization Details Last Updated DateTime 5 167.64 cm 43.4 kg/m2 076611. 35 g 98 /min 97 [degF] 116 mm[Hg] 91 mm[Hg] Nicole [facility]EC[facility], 5 13:15:01 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 Question Answer Notes LastModified by Organizat ion Details LastModified Time Tobacco Smoking Status Never Smoker Not Available [facility] 09/23/2020 03:20:23 Able To Swim? Yes Information not available 12/12/2017 Accident Related Injury No Information not available 12/12/2017 Do You Have An Advance Directive? No [id number] Information not available 09/23/2020 How Many Years Have You Consumed Alcohol? 12 [id number] Information not available 09/23/2020 Animal Exposure? Yes Informat ion not available 12/12/2017 Are You Currently Sexually Active With Anyone Who Has Traveled (within The Last 12 Weeks) To A Zika-affected Area? No [id number] Information not available 09/23/2020 Do You Wear A Helmet When Biking? No [id number] Information not available 09/23/2020 Are You Blind Or Do You Have Difficulty Seeing? No [id number] Information not available 09/23/2020 What Is Your Level Of Caffeine Consumption? Occasional [id number] Information not available 09/23/2020 How Much Tobacco Do You Chew? None [id number] Information not available 09/23/2020 Concerns About Meeting Basic Needs (food, Housing, Heat, Etc)? No Information not available 12/12/2017 Are You Deaf Or Do You Have Serious Difficulty Hearing? No [id number] Information not available 09/23/2020 What Type Of Diet Are You Following? REGULAR [id number] Information not available 09/23/2020 Which Illicit Or Recreational Drugs Have You Used? None [id number] Information not available 09/23/2020 Education Post Graduate Information not available 12/12/2017 Family History Of Heart Disease? Yes Information not available 12/12/2017 Have There Been Any Changes To Your Family Or Social Situation? No [id number] Information no t available 09/23/2020 Are There Any Guns Present In Your Home? Yes [id number] Information not available 09/23/2020 Hard Of Hearing Or Deaf In One Or Both Ears? No Information not available 12/12/2017 Legally Blind In One Or Both Eyes? No Information no t available 12/12/2017 Live Alone Or With Others? With Others Information not available 12/12/2017 Do You Have A Medical Power Of Frame Stripper? No [id number] Information not available 09/23/2020 What Was The Date Of Your Most Recent Tobacco Screening? 12/18/2018 [id number] Information not available 09/23/2020 How Many Children Do You Have? 0 [id number] Information not available 09/23/2020 Performs Monthly Self-breast Exam? No Information no t available 12/12/2017 Do You Have Any Pets? Yes [id number] Information not available 09/23/2020 Difficulty Reading? No Information not available 12/12/2017 Seat Belts Used Routinely Yes Information not available 12/12/2017 Are You Sexually Active? Yes [id number] Information not available 09/23/2020 Smoke Alarm In Home Yes Information not available 12/12/2017 Do You Have Smoke And Carbon Monoxide Detectors In Your Home? Yes [id number] Information not available 09/23/2020 Are You Passively Exposed To Smoke? No Information no t available 12/12/2017 Are There Any Smokers In Your House? No Information not available 12/12/2017 How Much Tobacco Do You Smoke? No [id number] Information not available 09/23/2020 General Stress Level Medium Information not available 12/12/2017 Sun Exposure Occasional Information not available 12/12/2017 Do You Use Sunscreen Routinely? Yes [id number] Information not available 09/23/2020 TB Risk Low Information no t available 12/12/2017 Has Tobacco Cessation Counseling Been Provided? No [id number] Information not available 09/23/2020 Difficulty Watching TV? No Information not available 12/12/2017 Do You Have Difficulty Walking Or Climbing Stairs? No [id number] Information not available 09/23/2020 Sex: Unknown Functional Status Question Answer Note LastModified by Organizat ion Details LastModified Time What is your level of alcohol consumption? Occasional [id number] Information not available 09/23/2020 Are you currently employed? Yes [id number] Information not available 09/23/2020 Do you have transportation difficulties? No [id number] Information not available 09/23/2020 Are you able to walk? YESWOREST [id number] Information not available 09/23/2020 Do you have difficulty doing errands alone? No [id number] Information not available 09/23/2020 Are you able to care for yourself? 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 No [id number] Information not available 09/23/2020 What is your exercise level? Occasional [id number] Information not available 09/23/2020 Mental Status Question Answer Note LastModified by Organization D etails LastModified Time Do you have difficulty concentrating, remembering or making decisions? No [id number] Information no t available 09/23/2020 Family History Relationship Description Onset Age of this Age Resolved Age Notes LastModified by Organization Details LastModified Time Mother Hypertensive disorder dcongleton Not available 12/12 11:47:55 Mother Diabetes mellitus dcongleton Not available 12/12 11:48:11 Mother Family history of malignant neoplasm mantle cell lympho ma [id number] Not available 09/15/2020 08:26:46 Mother Kidney disease [...] history of malignant neoplasm cervic al cancer [id number] Not available 09/15/2020 08:26:46 Sister Headache dcongleton [...] virus, quadrivalent, preservative 7 completed Not Available [facility] 12/29/2019 02:17:09 Past Encounters Encounter ID Performer Location Encounter Start Date Encounter Closed Date Diagnosis/Indication Diagnosis SNOMED-CT Code Diagnosis ICD10 Code Diagnosis Note [id number] JASMINE Lira Main Office [address] [place] [address] 12/12/2017 10:53:18 12/12/2017 12:31:17 Gynecologic examination 18467853 Z01.411 Body mass index 30+ - obesity 565291796 Z68.35 Screening for malignant neoplasm of colon 100391277 Z12.11 Screening for mental disorders 806049491 Z13.89 Alcohol co nsumption screening 655862856 Z13.89 Contracept ion care management 768555461 Z30.9 [id number] Dandy Duque DO Main Office [address] [place] [address] 12/18/2018 13:19:35 12/18/2018 14:12:33 Renewal of prescription 364583385 Z76.0 Gynecologi c examination 09846309 Z01.411 pap Secondary dysmenorrhea 81742711 N94.5 Contraception care 78688 5005 Z30.41 Screening for malignant neoplasm of colon 880583594 Z12.11 Body mass index 30+ - obesity 133578785 Z68.32 [id number] Dandy Duque DO Main Office [address] [place] [address] 01/14/2020 10:28:34 01/14/2020 11:48:12 Gynecologic examination 25462045 Z01.411 pap Renewal of prescription 732876562 Z76.0 Secondary dysmenorrhea 39755196 N94.5 controlled Contraception care 16854 5005 Z30.41 [id number] Dandy Duque DO Main Office [address] [place] [address] 09/15/2020 08:26:11 09/15/2020 09:30:10 Irregular periods 27410796 N92.5 labs and u/s ordered Pain in pelvis 39700309 R10.2 Secondary dysmenorrhea 86934965 N94.5 controlled Break-thro ugh bleeding 34055167 N92.1 [id number] Dandy Duque DO Main Office [address] [place] [address] 09/22/2020 13:35:58 09/22/2020 14:23:12 Irregular periods 73739198 N92.0 Pain in pelvis 16206822 R10.2 Cyst of right ovary 1223 316181 0262785 N83.291 Menorrhagia 481753372 N9 2.0 [id number] Dandy Duque DO Main Office [address] [place] [address] 11/25/2020 09:27:34 11/25/2020 10:52:01 Abnormal uterine bleeding 3337909047 9100 N93.8 Pain in pelvis 10855282 R10.2 Cyst of right ovary 1223 194135 4018123 N83.291 Cyst of left ovary 99230 27957 8405189 N83.292 [id number] Dandy Duque DO Main Office [address] [place] [address] [place] [address] 01/26/2021 15:10:31 01/26/2021 16:10:47 Pain in pelvis 44345992 R10.2 resolved/c ontrolled Dryness of vulva 9939136 3 N90.89 Gynecologi c examination 20922757 Z01.411 pap Cyst of right ovary 1223 037982 9201899 N83.291 symptoms resolved Cyst of left ovary 95127 86336 8551207 N83.292 symptoms resolved Leukocytes in urine 2757 89637 R82.79 Screening for mental disorders 762169222 Z13.89 [id number] Dandy Duque DO Main Office [address] [place] [address] [place] [address] 03/01/2022 09:17:45 03/01/2022 10:00:18 Gynecologic examination 95472454 Z01.419 pap Renewal of prescription 736600038 Z76.0 Screening for mental disorders 277490189 Z13.89 [id number] Dandy Duque DO Main Office [address] [place] [address] 03/01/2023 09:17:53 03/01/2023 10:37:56 Gynecologic examination 75531174 Z01.411 pap Menorrhagia 108126483 N9 2.0 u/s, consider mirena or ablation Screening for mental disorders 474602236 Z13.89 Genetic sc reening for disorder 749226149 Z13.71 bra testing today Premenstru al tension syndrome 01006361 N94.3 [id number] Dandy Duque DO Main Office [address] [place] [address] [place] [address] 03/02/2024 09:21:06 03/02/2024 10:16:59 Renewal of prescription 891810508 Z76.0 Gynecologi c examination 65985722 Z01.411 pap. patient given phone # to schedule screening mammogram ([facility] [place]) Screening for mental disorders 048788008 Z13.89 [id number] Dandy Duque DO Main Office [address] [place] [place] [address] 03/06/2025 09:45:36 03/06/2025 10:22:07 Well woman health examination 036068758 Z01.411 pap. has had mammogram. Menorrhagia 025576346 N9 2.0 u/s, considerin g ablation Leukocytes in urine 2757 48409 R82.998 Pain in pelvis 44225735 R10.2 resolved/c ontrolled [id number] Dandy Duque DO Main Office [address] [place] [address] 03/13/2025 15:47:12 03/13/2025 16:56:19 Abnormal uterine bleeding 9579841620 9100 N93.8 Pain in pelvis 51062451 R10.2 Large ovary 63589601 N83 .8 [id number] Dandy Duque DO Main Office [address] [place] [address] [place] [address] 03/27/2025 15:58:46 03/28/2025 07:59:23 Abnormal uterine bleeding [id number] 9100 N93.8 Pain in pelvis [id number] R10.2 Large ovary [id number] N83 .8 [id number] Dandy Duque DO Main Office [address] [place] [address] 04/30/2025 13:10:48 04/30/2025 14:21:57 Pre-surgery evaluation [id number] Z01.818 robotic laser laparoscop y, hysterosco py, D&C, novasure endometria l ablation, lysis of adhesions, decompress ion of ovarian cysts Nausea [id number] R11.0 for post-op Menorrhagia [id number] N9 2.0 Pain in pelvis 05908920 R10.2 Cyst of left ovary [id number] 2043980 N83.202 [id number] Dandy Duque DO Main Office [address] [place] [address] 05/06/2025 09:53:34 05/06/2025 09:53:57 Health Concerns Section Related Observation LastModified by Organization Detai ls LastModified Time None Recorded Concern Status LastModified by Organization Details LastModified Time None Recorded Advance Directives Directive N: Payers Insurance Date Sequence Insurance Name Policy Number Policy Renee Covered Member ID Renee Member ID Guarantor Name 04/30/2025 1 [employer]ARAN [place] [id number] Celine Dc [id number] Celine Dc 05/04/2025 1 [place] [id number] Celine Dc [id number] Celine Dc Notes Date Note Type Note Provider Name and Address Organization Details Recorded Time 03/06/2025 text/html Annual GYNReport ed bypatient.History: long, heavy periods, even on BC, spotting in between periods, some stress incontinence. Menstrual cycle:Severe dysmenorrhea;Tulio rhagia(sometimes clots);Bleeding lasts more than 7 days;Bleeding between periods Urinary symptoms:No hematuria;Stress incontinence Vulva:No genital lesion Vagina:Normal vaginal discharge Breast:No breast pain; No breast lump; No nipple discharge Sexual complaints:No sexual complaints; No pain during intercourse; Normal libido Menopausal Symptoms:Normal vaginal lubrication;Hot flashes;Insomnia due to night sweats Psychological symptoms:No depression; No anxiety; No PMDD Preventive measures:Followed with yearly pap smears; Mammogram performed within the past year Dandy Duque, [address], [place], [address], [facility], 03/29/2025 13:34:21 OBGyn Episode No OBEpisode recorded.
--- OUTSIDE RECORDS SUMMARY | 2025-05-09 13:54 | XMS_ITS | Encounter Summary ---
Author Organization [facility] Address [address] [place] [address] Care Team Providers Care Senior Qa Engineer Name Role Phone Dustin Gomez MD Primary Care Provider Unavailabl e Doctor, Vicki Primary Care Provider Unavailabl e Reason for Visit * Reason Onset Date Comments Referral Status 04/16/2010 Encounter Details Date Type Department Care Team (Late st Contact Info) Description 04/16/2010 Telephone [facility] [address] [place] [address] Jesus Osborne APRN Referral Status 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 Tobacco Use Types Packs/Day Years [...] on file documented as of this encounter Miscellaneous Notes * Telephone Encounter - Faiza Marley - 04/16/2010 3:13 PM EDT Aunmichele Mckeon has an appt with Dr. Ochoa on 2010 @ 1:00!! :) documented in this encounter Plan of Treatment Not on file documented as of this encounter Visit Diagnoses Not on filedocumented in this encounter Care Teams Senior Qa Engineer Relationship Specialty Start Date End Date Dustin Gomez MD PCP - General 08/02/08 02/11/14 , [place] Vides PCP - General Family Medicine 02/12/14 12/30/17 documented as of this encounter
--- OUTSIDE RECORDS SUMMARY | 2025-05-09 13:54 | XMS_ITS | Encounter Summary ---
Author Organization [employer] [facility] [employer] Address [address] [place] [address] Care Team Providers Care Barbecue Cook Name Role Phone Tyrell Magana MD Primary Care Provider +1- [phone] Encounter Details Date Type Department Care Team (Latest Contact Info) Description 04/30/2025 Travel 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 Tobacco Use Types Packs/Day [...] Date Surinder rded Speak language other than Kittitian at home Not on file 12/16/2023 Want [...] on filedocumented in this encounter Care Teams Barbecue Cook Relationship Specialty Start Date End Date Tyrell Magana MD [address] [place] [address] PCP - General Family Medicine 11/15/23 documented as of this encounter
--- OUTSIDE RECORDS SUMMARY | 2025-05-09 13:55 | XMS_ITS | Encounter Summary ---
Author Organization [facility] Address [address] [place] [address] Care Team Providers Care Attendant Lodging Facilities Name Role Phone Dustin Gomez MD Primary Care Provider Unavailabl e Doctor, Vicki Primary Care Provider Unavailabl e Encounter Details Date Type Department Care Team (Late st Contact Info) Description 08/02/2008 Historical Encounter Global Dustin Gomez MD 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 Tobacco Use Types Packs/Day Years Used Date Smoking Tobacco: Never Assessed Comments Unknown Sex and Gender Information Value Date Recorded Sex Assigned at Not on file Legal Sex Female 8:40 PM EST Gender Identity Not on file Sexual Orientation Not on file documented as of this encounter Plan of Treatment Not on file documented as of this encounter Visit Diagnoses Not on filedocumented in this encounter Care Teams Attendant Lodging Facilities Relationship Specialty Start Date End Date Dustin Gomez MD PCP - General 08/02/08 02/11/14 [facility] [place] PCP - General Family Medicine 02/12/14 12/30/17 documented as of this encounter
--- OUTSIDE RECORDS SUMMARY | 2025-05-09 13:55 | XMS_ITS | Encounter Summary ---
Author Organization [facility] [employer] [facility] Address [address] [place] [address] Care Team Providers Care Junior Business Analyst Name Role Phone Tyrell Magana MD Primary Care Provider +1- [phone] Encounter Details Date Type Department Care Team (Late st Contact Info) Description 05/14/2021 Transcribed Document [facility] [address] [place] [address] ProviderBen MD [address] [place], [place] [address] 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 Tobacco Use Types Packs/Day Years Used Date Smoking Tobacco: Never Assessed Comments Unknown Sex and Gender Information Value Date Recorded Sex Assigned at Female 2022 8:07 PM CDT Legal Sex Female 8:07 PM CDT Gender Identity Female 2022 8:07 PM CDT Sexual Orientation Not on file documented as of this encounter Miscellaneous Notes * Cerner Conversion Note - Historical ProviderMD - 05/14/2021 5:20 PM CDT PAT Adult Entered On: 05/14/2021 17:24 EDT Performed On: 05/14/2021 17:20 EDT by Caesar Patten, Rn Height and Weight, Clinical Dosing Height Source : Measured Height Entry Format : [place] Height, Feet : 0 ft(Converted to: 0 cm, 0 Inch) Height, Inches : 66 Inch(Converted to: 5 ft 6 Inch, 167.64 cm) Clinical Height : 167.64 cm Weight Source : Standing scale Weight Entry Format : [place] Clinical Dosing Weight : 104.32 kg Weight, Pounds : 229 lb Weight, Ounces : 8 oz Body Surface Area (BSA) : 2.12 m2 Body Mass Index : 37.1 kg/m2 (HI) [place] Body Weight : 59 kg Chastity Erazo, Nurse Certification Engineer - 05/15/2021 7:15 EDT Health Histories Smoking Status : Never (less than 100 in lifetime; none in last 30 days) Smokeless Tobacco Status : Never Implant/Device Type, Movie Projectionist and Model : bladder sling Caesar Patten Rn - 05/14/2021 17:20 EDT 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 (As Of: 05/14/2021 17:24:24 EDT) Tobacco: Never (less than 100 in lifetime) Smoking Status. (Last Updated: 10/09/2019 18:09:18 EST by Zainab Morales, LESLIE) Alcohol: Alcohol Use History Yes. Use in Last 12 Months: Yes. Alcohol Use Comment couple times a year . (Last Updated: 05/14/2021 17:20:49 EDT by Caesar Patten Rn) Substance Abuse: Drug Use Hx: No. Use in Last 12 Months: No. (Last Updated: 10/09/2019 18:09:23 EST by Zainab Morales RN) Infectious Disease History Has the patient ever been tested for COVID-19? : Yes, Patient stated results pending Date of COVID-19 test known? : Yes Date of COVID-19 Test : 05/13/2021 EDT Does patient have symptoms of COVID-19? : No COVID19 Screening : No Experiencing Infectious Disease Symptoms : No symptoms Physical contact outside [place] in the last 30 days : No Infectious Disease History : Chicken pox/Shingles Tuberculosis Symptoms : None Caesar Patten Rn - 05/14/2021 17:20 EDT COVID19 PreProcedure Screening Is this an Emergent or Add on Procedure? : No Date PreProcedure COVID-19 test known? : Yes Date of PreProcedure COVID-19 : 05/13/2021 EDT Has patient been isolated since the test : No Exposed to COVID19 symptoms since test? : No Caesar Patten Rn - 05/14/2021 17:20 EDT Anesthesia/Transfusion History Family History of Anesthesia Reaction : No prior transfusion(s) Blood Transfusion Acceptable to Patient : Yes Transfusion History : Prior anesthesia without reaction Family History of Anesthesia Reaction : Other: mother - excessive somnolence Caesar Patten Rn - 05/14/2021 17:20 EDT Functional Assessment Functional ADL Evaluation Index EBN Bathing : Independent (2) Dressing : Independent (2) Toileting : Independent (2) Transferring Bed or Chair : Independent (2) Continence : Independent (2) Feeding : Independent (2) Caesar Patten Rn - 05/14/2021 17:20 EDT ADL Index Score : 12 Caesar Patten Rn - 05/14/2021 17:20 EDT Advance Directive Patient has Advance Directive *Q : No, patient refuses Advance Directive information Caesar Patten Rn - 05/14/2021 17:20 EDT Spiritual/Cultural Needs Any Spiritual/Cultural Needs or Requests : No Caesar Patten Rn - 05/14/2021 17:20 EDT [place] Suicide Severity Rating Scale (C-SSRS) CSSRS Past Month Wish to be : No CSSRS Past Month Suicidal Thoughts : No CSSRS Lifetime Suicide Behavior : No Suicide Severity Rating Score : 0 Suicide Severity Rating : No Additional Care Required at this time Caesar Patten Rn - 05/14/2021 17:20 EDT Psychosocial History Do You Have a History of the Following? : Patient denies history Currently in Unsafe Situation : No Caesar Patten Rn - 05/14/2021 17:20 EDT General Info Support Person/Patient Interactive Video Technician : Yes Support Person/Pt Rep Name : Jason Dc - Support Person/Pt Rep Contact Information : [phone] Want Family/Rep/Phys Notified of Admit : No Emergency Contact #1 : ` Emergency Contact #1 Phone Number : ` Emergency Contact #1 Relationship : ` Emergency Contact #2 : ` Emergency Contact #2 Phone Number : ` Emergency Contact #2 Relationship : ` Information Obtained From : Patient Primary Language : Swiss Preferred Communication Mode : Verbal Communication Barrier : None Primer Supervisor Needed : No Caesar Patten Rn - 05/14/2021 17:20 EDT Porter Scale Porter Sensory Perception : No impairment Porter Moisture : Rarely moist Porter Activity : Walks frequently Porter Mobility : No limitation Porter Nutrition : Adequate Porter Friction and Shear : No apparent problem Porter Score : 22 Caesar Patten Rn - 05/14/2021 17:20 EDT Sleep Apnea Risk Assmt BMI Greater Than 35 kg/m2 : Yes Neck Circumference Greater Than 40 cm : No STOP-BANG Sleep Apnea Risk Level Score : 4 Chastity Erazo, Nurse Certification Engineer - 05/15/2021 7:15 EDT Hx of Obstructive Sleep Apnea Diagnosis : No Snore Loudly : Yes Tired, Fatigued, or Sleepy During Day : Yes Observed Stopping Breathing During Sleep : No Have/Are Being Treated for Hypertension : Yes Age over 50 Years Old : No Gender Male : No Caesar Patten Rn - 05/14/2021 17:20 EDT documented in this encounter Plan of Treatment Not on file documented as of this encounter Visit Diagnoses Not on filedocumented in this encounter Care Teams Junior Business Analyst Relationship Specialty Start Date End Date Tyrell Magana MD [address] [place] [address] PCP - General Family Medicine 11/15/23 documented as of this encounter
--- OUTSIDE RECORDS SUMMARY | 2025-05-09 13:55 | XMS_ITS | Encounter Summary ---
Author Organization [employer] Address [address] [place] [address] Care Team Providers Care Weeder Name Role Phone Tyrell Magana MD Primary Care Provider +1- [phone] Encounter Details Date Type Department Care Team (Late st Contact Info) Description 10/10/2019 Transcribed Document [facility] [place] Family Medicine [address] [place] [address] ProviderBen MD [address] [place], [place] [address] 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 Tobacco Use Types Packs/Day Years Used Date Smoking Tobacco: Never Assessed Comments Unknown Sex and Gender Information Value Date Recorded Sex Assigned at Female 2022 8:07 PM CDT Legal Sex Female 8:07 PM CDT Gender Identity Female 2022 8:07 PM CDT Sexual Orientation Not on file documented as of this encounter Miscellaneous Notes * Cerner Conversion Note - Ben ProviderMD - 10/10/2019 12:22 PM BR[facility] POURER [facility] Main OR PostOp Summary Primary Physician: JOMAR JENKINS MD Finalized Date/Time: 10/10/19 15:33:31 Pt. Name: CELINE DC /Sex: 1985 Female Med Rec #: [id number] Physician: JOMAR JENKINS MD Financial #: [id number] Pt. Type: O Room/Bed: /1 Admit/Disch: 10/10/19 09:16:00 - Institution: [facility] Main OR PostOp Case Times Entry 1 In PACU II 10/10/19 14:21:00 Ready for PACU II 10/10/19 15:05:00 Discharge Discharge from PACU 10/10/19 15:22:00 II Last Modified By: RENAY ROSSI RN 10/10/19 15:23:27 Finalized By: RENAY ROSSI, RN Document Signatures Signed By: RENAY ROSSI RN 10/10/19 15:33 Electronically signed by [facility] Conversion Roller Mill Tender Cerner at 03/13/2023 7:13 PM CDT documented in this encounter Plan of Treatment Not on file documented as of this encounter Visit Diagnoses Not on filedocumented in this encounter Care Teams Weeder Relationship Specialty Start Date End Date Tyrell Magana MD [address] [place] [address] PCP - General Family Medicine 11/15/23 documented as of this encounter
--- OUTSIDE RECORDS SUMMARY | 2025-05-09 13:55 | XMS_ITS | Encounter Summary ---
Author Organization [employer] Address [address] [place] [address] Care Team Providers Care Carder Blankets Name Role Phone Tyrell Magana MD Primary Care Provider [phone]- [phone] Encounter Details Date Type Department Care Team (Late st Contact Info) Description 05/15/2021 Transcribed Document [facility] [place] Family Medicine [address] [place] [address] ProviderBen MD [address] [place], [place] [id number] 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 Tobacco Use Types Packs/Day Years Used Date Smoking Tobacco: Never Assessed Comments Unknown Sex and Gender Information Value Date Recorded Sex Assigned at Female 2022 8:07 PM CDT Legal Sex Female 8:07 PM CDT Gender Identity Female 2022 8:07 PM CDT Sexual Orientation Not on file documented as of this encounter Miscellaneous Notes * Cerner Conversion Note - Ben ProviderMD - 05/15/2021 7:56 AM CDT [facility] Main OR IntraOp Summary Primary Physician: JOMAR JENKINS MD Finalized Date/Time: 05/26/21 11:04:59 Pt. Name: CELINE DC D.O.B./Sex: 1985 Female Med Rec #: [id number] Physician: JMOAR JENKINS MD Financial #: [id number] Pt. Type: O Room/Bed: Admit/Disch: 05/15/21 06:21:00 - 05/15/21 10:33:00 Institution: [facility] IntraOp Case Attendance Entry 1 Entry 2 Entry 3 Case Attendee JOMAR JENKINS MD Poff, Janie, Issa Nobles Role Performed Surgeon/Proceduralist, Home Energy Inspector, First Supervisor M[employer] First Time In 05/15/21 07:37:00 05/15/21 07:37:00 05/15/21 07:37:00 Time Out 05/15/21 08:47:00 05/15/21 08:47:00 05/15/21 08:47:00 Procedure Extracorporeal Extracorporeal Extracorporeal Shockwave Shockwave Shockwave Lithotripsy(Right) Lithotripsy(Right) Lithotripsy(Right) Other Attendee [employer] Superficial Wound Closed By: Last Modified By: Maryan Suarez RN Poff, Janie, RN Poff, Janie, RN 05/15/21 08:47:25 05/15/21 08:47:25 05/15/21 08:47:25 Entry 4 Entry 5 Case Attendee DARA MONTIEL NA CELLAROSI-YORBA, MARIA, MD-ANS Role Performed MCAT INSTRUCTOR/Nurse Director Of Distance Learning Anesthesiologist of Record Time In 05/15/21 07:37:00 05/15/21 07:37:00 Time Out 05/15/21 08:47:00 05/15/21 08:47:00 Procedure Extracorporeal Extracorporeal Shockwave Shockwave Lithotripsy(Right) Lithotripsy(Right) Other Attendee Superficial Wound Closed By: Last Modified By: Maryan Suarez RN Poff, Janie, RN 05/15/21 08:47:25 05/15/21 08:47:[address] [facility] IntraOp Case Attendance Audit 05/15/21 08:47:59 Hair Preparer: GAYATHRI Modifier: POFFJAN 5 <+> Case Attendee 5 <*> Procedure Extracorporeal Shockwave Lithotripsy(Right) 05/15/21 08:47:25 Hair Preparer: GAYATHRI Modifier: POFFJAN 1 <+> Time Out 1 <*> Procedure Extracorporeal Shockwave Lithotripsy(Right) 2 <+> Time In 2 <+> Time Out 2 <*> Procedure Extracorporeal Shockwave Lithotripsy(Right) 3 <+> Time In 3 <+> Time Out 3 <*> Procedure Extracorporeal Shockwave Lithotripsy(Right) 4 <+> Time In 4 <+> Time Out 4 <*> Procedure Extracorporeal Shockwave Lithotripsy(Right) 5 <+> Time In 5 <+> Time Out 5 <*> Procedure Extracorporeal Shockwave Lithotripsy(Right) [facility] IntraOp Case Times Entry 1 Patient In Room Time 05/15/21 07:37:00 Out Room Time 05/15/21 08:47:00 Anesthesia Start Time 05/15/21 07:37:00 Stop Time 05/15/21 08:47:00 Surgery / Procedure Times Start Time 05/15/21 07:56:00 Stop Time 05/15/21 08:42:00 Last Modified By: Maryan Suarez RN 05/15/21 08:47:[address] [facility] IntraOp Case Times Audit 05/15/21 08:47:22 Hair Preparer: POFFJAN Modifier: POFFJAN <+> 1 Out Room Time <+> 1 Stop Time 05/15/21 08:42:50 Hair Preparer: POFFJAN Modifier: POFFJAN <+> 1 Stop Time [facility] IntraOp Communication Entry 1 Communication To Family/Significant other Comment Procedure start Communication By Maryan Suarez RN Date and Time 05/15/21 08:00:00 Last Modified By: Maryan Suarez RN 05/15/21 08:14:[address] [facility] IntraOp Delays Entry 1 Delay Reason Other Duration 7 Minute(s) Comment Surgeon arrived to sign consent and vikash patient at 0730 Last Modified By: Maryan Suarez RN 05/15/21 08:08:[address] [facility] IntraOp Departure from OR Entry 1 Integumentary Assessment Integumentary WDL Assessment WDL Transfer/Handoff Transfer to PACU Phase I Handoff Method Phone call Post-op Transport Stretcher/Robert Via Patient Transport DARA MONTIEL NA, Accompanied by Maryan Suarez RN Last Modified By: Maryan Suarez RN 05/15/21 08:14:[address] [facility] IntraOp Fire Risk Assessment Entry 1 Fire Info Surgical Site or 0- No Incision Above the Xyphoid Open O2 Source 0- No (Mask or Cannula) Available Ignition 1- Yes (ESU, Laser, Light Source) Fire Risk 1 Assessment Score Fire Score Fire Risk Yes Assessment Complete Fire Risk Maryan Suarez RN Assessment Verified By Fire Risk 05/15/21 07:56:00 Assessment Verified Date/Time Fire Risk Standard Fire Yes Safety Precautions Followed Last Modified By: Maryan Suarez RN 05/15/21 08:11:[address] [facility] IntraOp General Case Farm Mortgage Agent 1 Case Information OR OR [address] [facility] Case Level 1 Room Verified Yes Wound Class II - Clean-Contaminated Specialty Urology Anesthesia Type General ASA Class 3 Diagnosis Preop Diagnosis Right renal calculus Postop Same As Preop Yes Postop Diagnosis Right renal calculus Last Modified By: Maryan Suarez RN 05/15/21 08:16:[address] [facility] IntraOp Intraoperative Assessment Entry 1 Handoff Report Chastity Erazo, Nurse Received from Operations Assistant Handoff Method Bedside/Face to face, Online nursing summary Valid History / Yes Physical in Chart Preoperative Yes Checklist Reviewed/Evaluated Allergies Reviewed Yes Patient is Latex No Sensitive Isolation Not applicable Precautions Noted Level of WDL Consciousness (WDL = Alert, Oriented to Person, Place, and Time) Skin Assessment Yes Verified Present Upon IVs Arrival to OR Last Modified By: Maryan Suarez RN 05/15/21 08:13:[address] [facility] IntraOp Intraoperative Equipment Entry 1 Type Monitoring Equipment Intraop Monitoring Electrocardiogram Five lead placement (ECG) Electrode Placement Blood Pressure Non-Invasive BP Device Source Antiembolic Devices Antiembolic Devices Sequential compression device, knee high Antiembolic Device Bilateral Location Antiembolic Device [id number] ID Number Scopes Photo/Video Documentation Photo No Video No Intraop Equipment Sequential compression Comment devices on and in operation prior to induction. Last Modified By: Maryan Suarez RN 05/15/21 08:16:[address] [facility] IntraOp Patient Positioning Entry 1 Procedure Extracorporeal Shockwave Lithotripsy(Right) Body Position Supine Left Arm Position Resting at side Right Arm Position Resting at side Left Leg Position Uncrossed, parallel Right Leg Position Uncrossed, parallel Position Comments Supine with legs elevated on wedge and pillows Feet Uncrossed Yes Pressure Points Yes Checked Positioning Devices Head Rest, Pad, Elbow, Pad, Elbow, Wedge, Safety Strap, Chest, Table, Cysto, Pillows Positioned By DARA MONTIEL NA, PerezIssa Poff, Janie, LESLIE, JOMAR JENKINS MD Position Verified Positioning Yes Verified by Anesthesia Positioning Yes Verified by Surgeon Last Modified By: Maryan Suarez RN 05/15/21 08:10:[address] [facility] IntraOp Sign In Entry 1 Patient, Site, Yes Procedure Identified Surgical Consent Yes Confirmed Relevant Surgical Yes Documents Available Surgical Site Yes Marked by person performing procedure Anesthesia Machine Yes Check Completed Medication Checks Yes Completed Allergies Yes Airway Difficult Yes Airway/Aspiration Risk Difficult Yes Airway/Aspiration Intervention Equipment Available Blood Loss Risk No Blood Loss Yes Intervention Equipment Prepared and Ready Blood Identifiers Not applicable Verified Per Policy Hypothermia Risk Yes Warming Measures Yes Taken Last Modified By: Maryan Suarez RN 05/15/21 08:08:[address] [facility] IntraOp Sign Out Entry 1 RN Confirmation Surgical Yes Procedure(s) Identified Instrument, Sponge N/A and Sharps Counts Correct/Documented Equipment Problems N/A Documented Specimen Labeled N/A Correctly Urinary Catheter N/A Documented in IView [place] Patient Yes Recovery Concerns Reviewed with Anesthesia Provider, Surgeon and RN [place] Patient Yes Management Concerns Reviewed with Anesthesia Provider, Surgeon and RN Safety Checklist Yes Elements Complete? RN Sign Out Maryan Suarez RN Signature RN Sign Out 05/15/21 08:47:00 Signature Date/Time Plan of Care Outcome - Fire Risk OUTCOME STATEMENT: Goal met Patient is free from injury related to surgical fire Plan of Care Outcome - Pt Positioning OUTCOME STATEMENT: Goal met Absence of signs and symptoms of positioning injury. Plan of Care Outcome - Skin Prep OUTCOME STATEMENT: Goal met Intraoperative care is consistent with measures to prevent infection Plan of Care Outcome - Xray/Images OUTCOME STATEMENT: Goal met Absence of observable signs or symptoms of radiation injury Plan of Care Outcome - Counts OUTCOME STATEMENT: Goal met Absence of signs and symptoms of injury related to extraneous objects Last Modified By: Maryan Suarez RN 05/15/21 08:47:[address] [facility] IntraOp Sign Out Audit 05/15/21 08:47:36 Hair Preparer: GAYATHRI Modifier: AURAJAN <+> 1 RN Sign Out Signature Date/Time 05/15/21 08:17:56 Hair Preparer: GAYATHRI Modifier: GAYATHRI 1 <*> OUTCOME STATEMENT: Absence of N/A observable signs or symptoms of radiation injury [facility] IntraOp Surgical Procedures Entry 1 Procedure Extracorporeal Shockwave Lithotripsy Modifiers Right Additional Right extracorporeal Procedure shockwave lithotripsy Description Primary Procedure Yes Primary Surgeon JOMAR JENKINS MD Start 05/15/21 07:56:00 Stop 05/15/21 08:42:00 Anesthesia Type General Specialty Urology Wound Class I - Clean Last Modified By: Maryan Suarez RN 05/15/21 08:47:[address] [facility] IntraOp Surgical Procedures Audit 05/15/21 08:47:30 Hair Preparer: GAYATHRI Modifier: GAYATHRI <+> [address] [facility] IntraOp Temp Regulation Devices Entry 1 Temp Regulation Temperature Forced Air Warming Regulation Device device, Room temperature, Warm blankets Temperature 30486 Regulation Device Serial/Unit Number Temperature Upper body Regulation Site Temperature MONTIEL, DARA, NA Regulation Device Applied by Last Modified By: Maryan Suarez RN 05/15/21 08:17:[address] [facility] IntraOP Time Out Entry 1 Procedure to be Extracorporeal Performed Shockwave Lithotripsy(Right) Time Out Time Out Pause Time 05/15/21 07:56:00 All activity Yes suspended (unless life threatening emergency) Team Verbally Correct patient Confirms Information identity, Correct side and site are marked, Consent form is present and accurate, Agreement on the procedure to be done, Correct patient position, Relevant images/results properly labeled/appropriately displayed, Confirm antibiotics have been administered, Performed in location of procedure after prepped/draped Antibiotic Yes Prophylaxis Administered Or In Progress Within the Last 60 Minutes Beta Terell N/A Administered Venous Yes Thromboembolism Prophylaxis Required Anticipated Critical Events Surgeon None expected Anesthesia Provider None expected Essential Imaging Yes Labeled and Displayed Last Modified By: Maryan Suarez RN 05/15/21 08:12:40 Case Comments <None> Finalized By: OVI NUNEZ Document Signatures Signed By: Maryan Suarez RN 05/15/21 08:48 OVI NUNEZ 05/26/21 11:05 Unfinalized History Date/Time Username Reason for Unfinalizing Freetext Reason for Unfinalizing 05/26/21 11:04 [email or web address] Correct Billing documented in this encounter Plan of Treatment Not on file documented as of this encounter Visit Diagnoses Not on filedocumented in this encounter Care Teams Carder Blankets Relationship Specialty Start Date End Date Tyrell Magana MD [address] [place] [address] PCP - General Family Medicine 11/15/23 documented as of this encounter
--- OUTSIDE RECORDS SUMMARY | 2025-05-09 13:55 | XMS_ITS | Encounter Summary ---
Author Organization Healthcare Address [address] [place] [address] Care Team Providers Care Comprehensive Ophthalmologist Name Role Phone Oriana Murcia Primary Care Provider Encounter Details Date Type Department Care Team (Late st Contact Info) Description 12/13/2024 Lab Requisition [facility] [address] [place] [address] Kiel Alexander MD [address] [place] [address] Localized swelling, mass and lump, unspecified 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 Tobacco Use Types Packs/Day Years Used Date Smoking Tobacco: Never Comments Unknown Sex and Gender Information Value Date Recorded Sex Assigned at Not on file Legal Sex Female 7:31 PM EDT Gender Identity Not on file Sexual Orientation Not on file documented as of this encounter Plan of Treatment Not on file documented as of this encounter Procedures Procedure Name Priority Date/Time Associated Diagnosis Comments SURGICAL PATHOLOGY CONSULT Routine 12/13/2024 1:26 PM EST Localized swelling, mass and lump, unspecified documented in this encounter Results * Surgical Pathology Consult (12/13/2024 1:26 PM EST) Case Report Sugical Pathology Consult Case: [id number] Authorizing Provider: Kiel Alexander MD Collected: 12/13/2024 1326 Ordering Location: [facility] Received: 12/13/2024 1327 Pathologist: Gaviota Crooks MD Specimen: Soft Tissue, [id number] 12/13/2024 4:12 PM EST [facility] Final Diagnosis SOFT TISSUE, LEFT DORSAL WRIST MASS, EXCISION (OUTSIDE SLIDES, COLLECTED 12/27/24): - LYMPH NODE AND FIBROADIPOSE TISSUE WITH NO SIGNIFICANT PATHOLOGIC ABNORMALITY. - NEGATIVE FOR MALIGNANCY IN SAMPLED TISSUE. 12/13/2024 4:12 PM EST [facility] at 1612 EST Clinical Information R22.9 - Localized swelling, mass and lump, unspecified [ICD-10-CM] 12/13/2024 4:12 PM EST [facility] Gross Description A. [id number] Received along with a corresponding pathology report from [facility] are 6 slides and 1 block labeled outside case: [id number] collected on 11/23/2024. 12/13/2024 4:12 PM EST [facility] Note: A resident was involved in the service. I attest I examined the relevant preparations for the specimens and confirmed the diagnosis or interpretation. 12/13/2024 4:12 PM EST [facility] Tissue Soft tissue / Unknown 12/13/2024 1:26 PM EST 12/13/2024 1:27 PM EST us Kiel Alexander MD LAB PATHOLOGY ORDERABLES Final Result [facility] [address] [place] [address] documented in this encounter Visit Diagnoses Diagnosis Localized swelling, mass and lump, unspecified documented in this encounter Care Teams Comprehensive Ophthalmologist Relationship Specialty Start Date End Date Oriana Murcia PA [address] [place] [address] PCP - General 04/10/21 documented as of this encounter
--- OUTSIDE RECORDS SUMMARY | 2025-05-09 13:55 | XMS_ITS | Encounter Summary ---
Author Organization [employer] Address [address] [place] [address] Care Team Providers Care Sandblaster Paint Sprayer Name Role Phone Tyrell Magana MD Primary Care Provider +1- [phone] Encounter Details Date Type Department Care Team (Late st Contact Info) Description 10/10/2019 Transcribed Document [facility] [place] [address] [place] [address] ProviderBen MD [address] [place], [place] [address] 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 Tobacco Use Types Packs/Day Years Used Date Smoking Tobacco: Never Assessed Comments Unknown Sex and Gender Information Value Date Recorded Sex Assigned at Female 2022 8:07 PM CDT Legal Sex Female 8:07 PM CDT Gender Identity Female 2022 8:07 PM CDT Sexual Orientation Not on file documented as of this encounter Miscellaneous Notes * Cerner Conversion Note - Ben Quintanilla MD - 10/10/2019 12:50 PM ICU REGISTERED NURSE Patient: CELINE DC Age: 34 Years Sex: Female : 1985 *Operation Cystoscopy, left ureteral stone manipulation, ureteral stent placement Left ESWL Indication for Surgery Left ureteral stone, moved back to renal pelvis *Preoperative Diagnosis Left ureteral stone *Postoperative Diagnosis Left ureteral stone, moved back to renal pelvis *Surgeon(s) Primary Surgeon Tiburcio *Estimated Blood Loss 0 ml *Findings Left ureteral stone, moved back to renal pelvis *Specimen(s) None Complications None Date of Service No qualifying data available. Electronically signed by Cesar Raymond Conversion Diesel Engine Mechanic Apprentice Cerner at 03/13/2023 7:09 PM CDT documented in this encounter Plan of Treatment Not on file documented as of this encounter Visit Diagnoses Not on filedocumented in this encounter Care Teams Sandblaster Paint Sprayer Relationship Specialty Start Date End Date Tyrell Magana MD [address] [place] [address] PCP - General Family Medicine 11/15/23 documented as of this encounter
--- OUTSIDE RECORDS SUMMARY | 2025-05-09 13:55 | XMS_ITS | Encounter Summary ---
Author Organization [employer] Address [address] [place] [address] Care Team Providers Care Candle Cutter Name Role Phone Tyrell Magana MD Primary Care Provider [phone] Encounter Details Date Type Department Care Team (Late st Contact Info) Description 10/10/2019 Transcribed Document [facility] [place] Family Medicine [address] [place] [address] ProviderBen MD [address] [place] [address] 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 Tobacco Use Types Packs/Day Years [...] - Ben ProviderMD - 10/10/2019 12:22 PM RUBBER TIRE AND TUBES SUPERVISOR [facility] Main OR IntraOp Summary Primary Physician: JOMAR JENKINS MD Finalized Date/Time: 10/11/19 12:49:48 Pt. Name: CELINE MARKS /Sex: 1985 Female Med Rec #: [id number] Physician: JOMAR JENKINS MD Financial #: [id number] Pt. Type: O Room/Bed: /1 Admit/Disch: 10/10/19 09:16:00 - 10/10/19 15:22:00 Institution: [facility] IntraOp Case Attendance Entry 1 Entry 2 Entry 3 Case Attendee JOMAR JENKINS MD SHEWCRAFT, SUZANNE K, CHALKLEY, JUDSON E, MANAGER EMERGENCY DEPARTMENT, PUBLIC RECORDS RESEARCHER -ANS Role Performed Surgeon/Proceduralist, PUBLIC RECORDS RESEARCHER/Nurse Cable Systems Installer Anesthesiologist First Time In 10/10/19 12:05:00 10/10/19 12:05:00 10/10/19 12:05:00 Time Out 10/10/19 13:35:00 10/10/19 13:35:00 10/10/19 13:35:00 Procedure Extracorporeal Extracorporeal Extracorporeal Shockwave Shockwave Shockwave Lithotripsy(Left), Lithotripsy(Left), Lithotripsy(Left), Ureteral Stent Insertion Ureteral Stent Insertion Ureteral Stent Insertion Other Attendee SUPERVISIOR Superficial Wound JOMAR JENKINS MD Closed By: Last Modified By: Kiley Scott RN Parker, Katherine, RN Parker, Katherine, RN 10/10/19 13:16:04 10/10/19 13:38:32 10/10/19 12:54:41 Entry 4 Entry 5 Entry 6 Case Attendee REED MUNOZ RN Baker, Amanda S, Madden, Jerrild Bread Oven Operator Role Performed Information Security Risk Analyst, Second Scrub, First Internet Database Specialist Time In 10/10/19 12:05:00 10/10/19 12:05:00 10/10/19 12:05:00 Time Out 10/10/19 13:35:00 10/10/19 12:39:00 10/10/19 13:35:00 Procedure Extracorporeal Ureteral Stent Insertion Extracorporeal Shockwave Shockwave Lithotripsy(Left), Lithotripsy(Left), Ureteral Stent Insertion Ureteral Stent Insertion Other Attendee RELIEF Superficial Wound Closed By: Last Modified By: Kiley Scott, Kiley Alexander, Kiley Alexander RN 10/10/19 12:54:41 10/10/19 12:54:41 10/10/19 13:38:32 Entry 7 Entry 8 Case Attendee Tyler, KileyLESLIE gutierrez MICHELLE R, APRN, PUBLIC RECORDS RESEARCHER Role Performed Information Security Risk Analyst, First PUBLIC RECORDS RESEARCHER/Nurse Cable Systems Installer Time In 10/10/19 12:45:00 10/10/19 12:05:00 Time Out 10/10/19 13:35:00 10/10/19 12:33:00 Procedure Extracorporeal Ureteral Stent Insertion Shockwave Lithotripsy(Left) Other Attendee Superficial Wound Closed By: Last Modified By: Kiley Scott RN Parker, Katherine, RN 10/10/19 13:38:32 10/10/19 13:16:04 [facility] IntraOp Case Attendance Audit 10/10/19 13:38:32 Supervisor Varnish: DANY Modifier: PARKEK 1 <+> Time Out 1 <*> Procedure Extracorporeal Shockwave Lithotripsy(Left), Ureteral Stent Insertion 2 <+> Time Out 2 <*> Procedure Extracorporeal Shockwave Lithotripsy(Left), Ureteral Stent Insertion 3 <+> Time Out 3 <*> Procedure Extracorporeal Shockwave Lithotripsy(Left), Ureteral Stent Insertion 4 <+> Time Out 4 <*> Procedure Extracorporeal Shockwave Lithotripsy(Left), Ureteral Stent Insertion 5 <*> Procedure Ureteral Stent Insertion 6 <+> Time Out 6 <*> Procedure Extracorporeal Shockwave Lithotripsy(Left), Ureteral Stent Insertion 7 <+> Time Out 7 <*> Procedure Extracorporeal Shockwave Lithotripsy(Left) 8 <*> Procedure Ureteral Stent Insertion 10/10/19 13:16:04 Supervisor Varnish: DANY Modifier: PARKEK 1 <*> Case Attendee JOMAR JENKINS MD 1 <*> Role Performed Surgeon/Proceduralist, First 1 <*> Time In 10/10/19 12:05:00 1 <*> Procedure Extracorporeal Shockwave Lithotripsy(Left), Ureteral Stent Insertion 1 <*> Superficial Wound Closed By: JOMAR JENKINS MD 2 <*> Case Attendee ALMA ROSA GARZA APRN, PUBLIC RECORDS RESEARCHER 2 <*> Role Performed PUBLIC RECORDS RESEARCHER/Nurse Cable Systems Installer 2 <*> Time In 10/10/19 12:05:00 2 <*> Procedure Extracorporeal Shockwave Lithotripsy(Left), Ureteral Stent Insertion 3 <*> Case Attendee KIMMY RILEY MD-ANS 3 <*> Role Performed Anesthesiologist 3 <*> Time In 10/10/19 12:05:00 3 <*> Procedure Extracorporeal Shockwave Lithotripsy(Left), Ureteral Stent Insertion 3 <*> Other Attendee SUPERVISIOR 4 <*> Case Attendee REED MUNOZ, RN 4 <*> Role Performed Information Security Risk Analyst, Second 4 <*> Time In 10/10/19 12:05:00 4 <*> Procedure Extracorporeal Shockwave Lithotripsy(Left), Ureteral Stent Insertion 4 <*> Other Attendee RELIEF 5 <*> Case Attendee Chastity Gray, Bread Oven Operator 5 <*> Role Performed Scrub, First 5 <*> Time In 10/10/19 12:05:00 5 <*> Time Out 10/10/19 12:39:00 5 <*> Procedure Ureteral Stent Insertion 6 <*> Case Attendee Issa Perez 6 <*> Role Performed Internet Database Specialist 6 <*> Time In 10/10/19 12:05:00 6 <*> Procedure Extracorporeal Shockwave Lithotripsy(Left), Ureteral Stent Insertion 7 <*> Case Attendee Kiley Scott, RN 7 <*> Role Performed Information Security Risk Analyst, First 7 <*> Time In 10/10/19 12:45:00 7 <*> Procedure Extracorporeal Shockwave Lithotripsy(Left) 8 <+> Case Attendee 8 <+> Role Performed 8 <*> Time In 10/10/19 12:05:00 8 <*> Time Out 10/10/19 13:03:00 8 <+> Procedure 10/10/19 13:08:18 Supervisor Varnish: DANY Modifier: DANY 1 <*> Procedure Extracorporeal Shockwave Lithotripsy(Left), Ureteral Stone Manipulation Laser, Ureteral Stent Insertion 2 <*> Procedure Extracorporeal Shockwave Lithotripsy(Left), Ureteral Stone Manipulation Laser, Ureteral Stent Insertion 3 <*> Procedure Extracorporeal Shockwave Lithotripsy(Left), Ureteral Stone Manipulation Laser, Ureteral Stent Insertion 4 <*> Procedure Extracorporeal Shockwave Lithotripsy(Left), Ureteral Stone Manipulation Laser, Ureteral Stent Insertion 5 <*> Procedure Ureteral Stone Manipulation Laser, Ureteral Stent Insertion 6 <*> Procedure Extracorporeal Shockwave Lithotripsy(Left), Ureteral Stone Manipulation Laser, Ureteral Stent Insertion 7 <*> Procedure Extracorporeal Shockwave Lithotripsy(Left) <+> 8 Time In 10/10/19 13:03:21 Supervisor Varnish: DANY Modifier: PARKEK 1 <*> Procedure Extracorporeal Shockwave Lithotripsy(Left), Ureteral Stone Manipulation Laser, Ureteral Stent Insertion 2 <+> Time In 2 <*> Procedure Extracorporeal Shockwave Lithotripsy(Left), Ureteral Stone Manipulation Laser, Ureteral Stent Insertion 3 <+> Time In 3 <*> Procedure Extracorporeal Shockwave Lithotripsy(Left), Ureteral Stone Manipulation Laser, Ureteral Stent Insertion 4 <+> Time In 4 <*> Procedure Extracorporeal Shockwave Lithotripsy(Left), Ureteral Stone Manipulation Laser, Ureteral Stent Insertion 5 <+> Time In 5 <*> Procedure Ureteral Stone Manipulation Laser, Ureteral Stent Insertion 6 <+> Time In 6 <*> Procedure Extracorporeal Shockwave Lithotripsy(Left), Ureteral Stone Manipulation Laser, Ureteral Stent Insertion 7 <*> Procedure Extracorporeal Shockwave Lithotripsy(Left) <+> 8 Time Out [facility] IntraOp Case Times Entry 1 Patient In Room Time 10/10/19 12:05:00 Out Room Time 10/10/19 13:35:00 Anesthesia Start Time 10/10/19 12:05:00 Stop Time 10/10/19 13:35:00 Surgery / Procedure Times Start Time 10/10/19 12:22:00 Stop Time 10/10/19 13:29:00 Last Modified By: Kiley Scott RN 10/10/19 13:29:14 [facility] IntraOp Case Times Audit 10/10/19 13:38:31 Supervisor Varnish: DANY Modifier: PARKEK <+> 1 Out Room Time <+> 1 Stop Time 10/10/19 13:29:14 Supervisor Varnish: GERALDOEK Modifier: PARKEK <+> 1 Stop Time [facility] IntraOp Communication Entry 1 Communication To Family/Significant other Comment START OF PROCEDURES Communication By REED MUNOZ RN Date and Time 10/10/19 12:24:00 Last Modified By: Kiley Scott RN 10/10/19 12:55:34 [facility] IntraOp Departure from OR Entry 1 Integumentary Assessment Integumentary WDL Assessment WDL Transfer/Handoff Transfer to PACU Phase I Handoff Method Bedside/Face to face, Phone call Handoff Reported to LC NORWOOD RN Post-op Transport Stretcher/Gurney Via Patient Transport ALMA ROSA GARZA, Accompanied by [place] JEROME, Kiley Scott RN Last Modified By: Kiley Scott RN 10/10/19 12:56:37 [facility] IntraOp Dressing and Packing Entry 1 Type Dressing Location OPSITE Wound Dressing Item Other Applied By JOMAR JENKINS MD Other Comments TEGADERM Last Modified By: Kiley Scott RN 10/10/19 12:57:30 [facility] IntraOp Fire Risk Assessment Entry 1 Fire Info Surgical Site or 0- No Incision Above the Xyphoid Open O2 Source 1- Yes (Mask or Cannula) Available Ignition 1- Yes (ESU, Laser, Light Source) Fire Risk 2 Assessment Score Fire Score Fire Risk Yes Assessment Complete Fire Risk Kiley Scott RN Assessment Verified By Fire Risk 10/10/19 12:07:00 Assessment Verified Date/Time Fire Risk Standard Fire Yes Safety Precautions Followed Last Modified By: Kiley Scott RN 10/10/19 12:57:49 [facility] IntraOp General Case Incising Machine Operator 1 Case Information OR OR 19 [facility] Case Level 1 Room Verified Yes Wound Class II - Clean-Contaminated Specialty SN Urology Anesthesia Type General ASA Class 2 Diagnosis Preop Diagnosis LEFT RENAL STONE Postop Same As Preop Yes Postop Diagnosis LEFT RENAL STONE Last Modified By: Kiley Scott RN 10/10/19 12:58:28 [facility] IntraOp General Case Data Audit 10/10/19 13:26:41 Supervisor Varnish: DANY Modifier: DANY 1 <*> Preop Diagnosis RIGHT RENAL STONE 1 <*> Postop Diagnosis RIGHT RENAL STONE [facility] IntraOp Implant Log Entry 1 Type Implant (Synthetic) Implant Log Implant Type Other Implant STENT URET BRAID + Identification [id number] Description Implant Quantity 1 Implant Site OPSITE Implant [id number] Identification Lot Number Implant [place] Identification Sci:Urology/Gynecology Tomb Maker Helper Name: Implant [id number] Identification Catalog Number Implant Size 6 FR X 24 CM Implant Has an Yes Expiration Date Tissue Implant Last Modified By: Kiley Scott RN 10/10/19 13:21:15 [facility] IntraOp Intraoperative Assessment Entry 1 Valid History / Yes Physical in Chart Preoperative Yes Checklist Reviewed/Evaluated Allergies Reviewed Yes Patient is Latex No Sensitive Isolation Not applicable Precautions Noted Level of WDL Consciousness (WDL = Alert, Oriented to Person, Place, and Time) Skin Assessment No Verified Present Upon IVs Arrival to OR Last Modified By: Kiley Scott RN 10/10/19 12:58:37 [facility] IntraOp Intraoperative Equipment Entry 1 Entry 2 Type Monitoring Equipment Equipment Equipment Other ID Number [id number] Setting Intraop Monitoring Electrocardiogram Three lead placement (ECG) Electrode Placement Blood Pressure Non-Invasive BP Device Source Blood Pressure Location Pulse Oximeter Probe Site Antiembolic Devices Antiembolic Devices Sequential compression device, knee high Antiembolic Device Bilateral Location Antiembolic Device ID Number Antiembolic Device 40 mmHg Setting Scopes Flexible Endoscopes Used Scope Serial Number/Identificatio n Number Photo/Video Documentation Photo No Video No Intraop Equipment Sequential compression Comment devices on and in operation prior to induction. Last Modified By: Kiley Scott RN Parker, Katherine, RN 10/10/19 12:59:21 10/10/19 12:59:21 [facility] IntraOp Medication Admin Entry 1 Entry 2 Medication/Irrigant Normal Saline 0.9% lidocaine 2% urojet 1000ml irrigation - 10ml jelly - [id number] Combo Med List Time Administered Route of Irrigation TOPICAL Administration Dose Dose 500 Unit of Measure ml ml Volume Administered By JOMAR JENKINS MD JOHNSON, JUSTIN DALE, MD Procedure Irrigation Irrigant Volume In Irrigant Volume Out Last Modified By: Kiley Scott RN Parker, Katherine, RN 10/10/19 13:02:41 10/10/19 13:02:41 [facility] IntraOp Patient Positioning Entry 1 Procedure Extracorporeal Shockwave Lithotripsy(Left), Ureteral Stent Insertion Body Position Lithotomy Left Arm Position Tucked and padded at side Right Arm Position Tucked and padded at side Left Leg Position Secured in Leg Renee Right Leg Position Secured in Leg Renee Feet Uncrossed Yes Pressure Points Yes Checked Positioning Devices Head Rest, Table, Cysto, Pad, Elbow, Stirrups/Leg Renee, Cysto Device Position PT. IN LITHOTOMY POSITION FOLLOWED BY SUPINE WITH WEDGE PILLOW Positioned By JOMAR JENKINS MD, ALMA ROSA GARZA APRN, [place], REED MUNOZ RN, Issa Perez Position Verified Positioning Yes Verified by Anesthesia Positioning Yes Verified by Surgeon Last Modified By: Kiley Scott RN 10/10/19 13:05:24 [facility] IntraOp Patient Positioning Audit 10/10/19 13:08:18 Supervisor Varnish: GERALDOMYCHAL Modifier: PARKEK 1 <*> Procedure Extracorporeal Shockwave Lithotripsy(Left), Ureteral Stone Manipulation Laser, Ureteral Stent Insertion 10/10/19 13:05:24 Supervisor Varnish: GERALDOMYCHAL Modifier: PARKEK 1 <*> Procedure Extracorporeal Shockwave Lithotripsy(Left), Ureteral Stone Manipulation Laser, Ureteral Stent Insertion 1 <+> Device Position 1 <*> Positioned By JOMAR JENKINS MD [facility] IntraOp Sign In Entry 1 Patient, Site, Yes Procedure Identified Surgical Consent Yes Confirmed Relevant Surgical Yes Documents Available Surgical Site Yes Marked by person performing procedure Anesthesia Machine Yes Check Completed Medication Checks Yes Completed Allergies Yes Airway Difficult Yes Airway/Aspiration Risk Difficult Yes Airway/Aspiration Intervention Equipment Available Blood Loss Risk Yes Blood Loss Yes Intervention Equipment Prepared and Ready Blood Identifiers Not applicable Verified Per Policy Hypothermia Risk Yes Warming Measures Yes Taken Last Modified By: Kiley Scott RN 10/10/19 13:05:35 [facility] IntraOp Sign Out Entry 1 RN Confirmation [...] Checklist Yes Elements Complete? RN Sign Out Kiley Scott RN Signature RN Sign Out 10/10/19 13:26:00 Signature Date/Time Plan of Care Outcome - [...] related to extraneous objects Last Modified By: Kiley Scott RN 10/10/19 13:05:55 [facility] IntraOp Sign Out Audit 10/10/19 13:26:48 Supervisor Varnish: DANY Modifier: PARKEK <+> 1 RN Sign Out Signature Date/Time [facility] IntraOp Skin Prep Entry 1 Procedure Ureteral Stent Insertion Prescribed N/A Pre-Surgical Prep Completed Prep Area genitalia Intraop Prep Integumentary WDL Assessment WDL Prep Agents Betadine solution Prep by REED MUNOZ RN Hair Removal Methods No hair removal performed Last Modified By: Kiley Scott RN 10/10/19 13:06:37 [facility] IntraOp Skin Prep Audit 10/10/19 13:08:41 Supervisor Varnish: GERALDOEK Modifier: PARKEK 1 <*> Procedure Ureteral Stent Insertion 10/10/19 13:08:19 Supervisor Varnish: DANY Modifier: PARKEK 1 <*> Procedure Ureteral Stent Insertion [facility] IntraOp Surgical Procedures Entry 1 Entry 2 Procedure Extracorporeal Ureteral Stent Insertion Shockwave Lithotripsy Modifiers Left Additional (LT ESWL, LT Procedure URETEROSCOPY, STENT Description PLACEMENT Primary Procedure Yes No Primary Surgeon JOMAR JENKINS MD JOHNSON, JUSTIN DALE, MD Start 10/10/19 12:22:00 10/10/19 12:22:00 Stop 10/10/19 13:29:00 10/10/19 13:29:00 Physician States Cecum Reached Anesthesia Type General General Specialty SN Urology SN Urology Wound Class II - Clean-Contaminated II - Clean-Contaminated Last Modified By: Kiley Scott RN Parker, Katherine, RN 10/10/19 13:08:41 10/10/19 13:08:41 [facility] IntraOp Surgical Procedures Audit 10/10/19 13:29:51 Supervisor Varnish: DANY Modifier: PARKEK 2 <*> Procedure Ureteral Stent Insertion 2 <+> Specialty 10/10/19 13:29:33 Supervisor Varnish: GERALDOEK Modifier: PARKEK 1 <*> Procedure Extracorporeal Shockwave Lithotripsy 10/10/19 13:29:17 Supervisor Varnish: GERALDOEK Modifier: PARKEK <+> 1 Stop <+> 2 Stop [facility] IntraOp Temp Regulation Devices Entry 1 Temp Regulation Temperature Warm blankets, Forced Regulation Device Air Warming device Temperature Upper body Regulation Site Temperature monitored per Regulation Comment anesthesia, madie hugger available Last Modified By: Kiley Scott RN 10/10/19 13:08:53 [facility] IntraOP Time Out Entry 1 Procedure to be Extracorporeal Performed Shockwave Lithotripsy(Left), Ureteral Stent Insertion Time Out Time Out Pause Time 10/10/19 12:22:00 All activity Yes suspended (unless life threatening emergency) Team Verbally Correct patient Confirms Information identity, Correct side and site are marked, Consent form is present and accurate, Agreement on the procedure to be done, Correct patient position, Relevant images/results properly labeled/appropriately displayed, Confirm antibiotics have been administered, Confirm the skin prep has dried, Confirm prosthesis/implant/devic e is present, Performed in location of procedure after prepped/draped Antibiotic Yes Prophylaxis Administered Or In Progress Within the Last 60 Minutes Beta Terell N/A Administered Venous Yes Thromboembolism Prophylaxis Required Anticipated Critical Events Surgeon None expected Anesthesia Provider None expected Nursing Assures Sterility of instruments, Equipment concerns or issues, Implant Availability, Other Essential Imaging Yes Labeled and Displayed Last Modified By: Kiley Scott RN 10/10/19 13:10:34 Case Comments <None> Finalized By: OVI NUNEZ Document Signatures Signed By: Kiley Scott RN 10/10/19 13:38 OVI NUNEZ 10/11/19 12:49 Unfinalized History Date/Time Username Reason for Unfinalizing Freetext Reason for Unfinalizing 10/11/19 12:48 WATJERRYDR Correct Billing documented in this encounter Plan of Treatment Not on file documented as of this encounter Visit Diagnoses Not on filedocumented in this encounter Care Teams Candle Cutter Relationship Specialty Start Date End Date Tyrell Magana MD [address] [place] [id number] PCP - General Family Medicine 11/15/23 documented as of this encounter
--- OUTSIDE RECORDS SUMMARY | 2025-05-09 13:55 | XMS_ITS | Encounter Summary ---
Author Organization [employer] Address [address] [place] [address] Care Team Providers Care Platform Consultant Name Role Phone Tyrell Magana MD Primary Care Provider [phone]- [phone] Encounter Details Date Type Department Care Team (Late st Contact Info) Description 05/15/2021 Transcribed Document [facility] [place] Family Medicine [address] [place] [address] ProviderBen MD [address] [place], [place] [id number] 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 Tobacco Use Types Packs/Day Years [...] Conversion Note - Ben Quintanilla MD - 05/15/2021 9:47 AM CDT Patient Education Materials Follows: Lithotripsy, Care After This sheet gives you information about how to care for yourself after your procedure. Your health care provider may also give you more specific instructions. If you have problems or questions, contact your health care provider. What can I expect after the procedure? After the procedure, it is common to have: ??? Some blood in your urine. This should only last for a few days. ??? Soreness in your back, sides, or upper abdomen for a few days. ??? Blotches or bruises on your back where the pressure wave entered the skin. ??? Pain, discomfort, or nausea when pieces (fragments) of the kidney stone move through the tube that carries urine from the kidney to the bladder (ureter). Stone fragments may pass soon after the procedure, but they may continue to pass for up to 4?8 weeks. ? If you have severe pain or nausea, contact your health care provider. This may be caused by a large stone that was not broken up, and this may mean that you need more treatment. ??? Some pain or discomfort during urination. ??? Some pain or discomfort in the lower abdomen or (in men) at the base of the penis. Follow these instructions at home: Medicines ??? Take uunj-tqq-osfqkxq and prescription medicines only as told by your health care provider. ??? If you were prescribed an antibiotic medicine, take it as told by your health care provider. Do not stop taking the antibiotic even if you start to feel better. ??? Do not drive for 24 hours if you were given a medicine to help you relax (sedative). ??? Do not drive or use heavy machinery while taking prescription pain medicine. Eating and drinking ??? Drink enough water and fluids to keep your urine clear or pale yellow. This helps any remaining pieces of the stone to pass. It can also help prevent new stones from forming. ??? Eat plenty of fresh fruits and vegetables. ??? Follow instructions from your health care provider about eating and drinking restrictions. You may be instructed: ? To reduce how much salt (sodium) you eat or drink. Check ingredients and nutrition facts on packaged foods and beverages. ? To reduce how much meat you eat. ??? Eat the recommended amount of calcium for your age and gender. Ask your health care provider how much calcium you should have. General instructions ??? Get plenty of rest. ??? Most people can resume normal activities 1?2 days after the procedure. Ask your health care provider what activities are safe for you. ??? Your health care provider may direct you to lie in a certain position (postural drainage) and tap firmly (percuss) over your kidney area to help stone fragments pass. Follow instructions as told by your health care provider. ??? If directed, strain all urine through the strainer that was provided by your health care provider. ? Keep all fragments for your health care provider to see. Any stones that are found may be sent to a medical lab for examination. The stone may be as small as a grain of salt. ??? Keep all follow-up visits as told by your health care provider. This is important. Contact a health care provider if: ??? You have pain that is severe or does not get better with medicine. ??? You have nausea that is severe or does not go away. ??? You have blood in your urine longer than your health care provider told you to expect. ??? You have more blood in your urine. ??? You have pain during urination that does not go away. ??? You urinate more frequently than usual and this does not go away. ??? You develop a rash or any other possible signs of an allergic reaction. Get help right away if: ??? You have severe pain in your back, sides, or upper abdomen. ??? You have severe pain while urinating. ??? Your urine is very dark red. ??? You have blood in your stool (feces). ??? You cannot pass any urine at all. ??? You feel a strong urge to urinate after emptying your bladder. ??? You have a fever or chills. ??? You develop shortness of breath, difficulty breathing, or chest pain. ??? You have severe nausea that leads to persistent vomiting. ??? You faint. Summary ??? After this procedure, it is common to have some pain, discomfort, or nausea when pieces (fragments) of the kidney stone move through the tube that carries urine from the kidney to the bladder (ureter). If this pain or nausea is severe, however, you should contact your health care provider. ??? Most people can resume normal activities 1?2 days after the procedure. Ask your health care provider what activities are safe for you. ??? Drink enough water and fluids to keep your urine clear or pale yellow. This helps any remaining pieces of the stone to pass, and it can help prevent new stones from forming. ??? If directed, strain your urine and keep all fragments for your health care provider to see. Fragments or stones may be as small as a grain of salt. ??? Get help right away if you have severe pain in your back, sides, or upper abdomen or have severe pain while urinating. This information is not intended to replace advice given to you by your health care provider. Make sure you discuss any questions you have with your health care provider. Document Revised: 02/25/2020 Document Reviewed: 10/05/2017 [employer] Patient Education ? 2019 [employer]. Pharmacology General Anesthesia, Adult, Care After This sheet gives you information about how to care for yourself after your procedure. Your health care provider may also give you more specific instructions. If you have problems or questions, contact your health care provider. What can I expect after the procedure? After the procedure, the following side effects are common: ??? Pain or discomfort at the IV site. ??? Nausea. ??? Vomiting. ??? Sore throat. ??? Trouble concentrating. ??? Feeling cold or chills. ??? Weak or tired. ??? Sleepiness and fatigue. ??? Soreness and body aches. These side effects can affect parts of the body that were not involved in surgery. Follow these instructions at home: For at least 24 hours after the procedure: ??? Have a responsible adult stay with you. It is important to have someone help care for you until you are awake and alert. ??? Rest as needed. ??? Do not: ? Participate in activities in which you could fall or become injured. ? Drive. ? Use heavy machinery. ? Drink alcohol. ? Take sleeping pills or medicines that cause drowsiness. ? Make important decisions or sign legal documents. ? Take care of children on your own. Eating and drinking ??? Follow any instructions from your health care provider about eating or drinking restrictions. ??? When you feel hungry, start by eating small amounts of foods that are soft and easy to digest (bland), such as toast. Gradually return to your regular diet. ??? Drink enough fluid to keep your urine pale yellow. ??? If you vomit, rehydrate by drinking water, juice, or clear broth. General instructions ??? If you have sleep apnea, surgery and certain medicines can increase your risk for breathing problems. Follow instructions from your health care provider about wearing your sleep device: ? Anytime you are sleeping, including during daytime naps. ? While taking prescription pain medicines, sleeping medicines, or medicines that make you drowsy. ??? Return to your normal activities as told by your health care provider. Ask your health care provider what activities are safe for you. ??? Take wklw-gsj-yesfaxy and prescription medicines only as told by your health care provider. ??? If you smoke, do not smoke without supervision. ??? Keep all follow-up visits as told by your health care provider. This is important. Contact a health care provider if: ??? You have nausea or vomiting that does not get better with medicine. ??? You cannot eat or drink without vomiting. ??? You have pain that does not get better with medicine. ??? You are unable to pass urine. ??? You develop a skin rash. ??? You have a fever. ??? You have redness around your IV site that gets worse. Get help right away if: ??? You have difficulty breathing. ??? You have chest pain. ??? You have blood in your urine or stool, or you vomit blood. Summary ??? After the procedure, it is common to have a sore throat or nausea. It is also common to feel tired. ??? Have a responsible adult stay with you for the first 24 hours after general anesthesia. It is important to have someone help care for you until you are awake and alert. ??? When you feel hungry, start by eating small amounts of foods that are soft and easy to digest (bland), such as toast. Gradually return to your regular diet. ??? Drink enough fluid to keep your urine pale yellow. ??? Return to your normal activities as told by your health care provider. Ask your health care provider what activities are safe for you. This information is not intended to replace advice given to you by your health care provider. Make sure you discuss any questions you have with your health care provider. Document Revised: 11/17/2018 Document Reviewed: 06/30/2018 [employer] Patient Education ? 2020 [employer] Procedures Outpatient Surgery, Adult, Care After These instructions provide you with information about caring for yourself after your procedure. Your health care provider may also give you more specific instructions. Your treatment has been planned according to current medical practices, but problems sometimes occur. Call your health care provider if you have any problems or questions after your procedure. What can I expect after the procedure? After the procedure, it is common to have: ??? Tenderness and numbness at the surgical site. ??? Swelling and bruising around the surgical site. ??? Nausea. Follow these instructions at home: For at least 24 hours after the procedure: ??? Have a responsible adult stay with you. It is important to have someone help care for you until you are awake and alert. ??? Rest as needed. ??? Do not: ? Participate in activities in which you could fall or become injured. ? Drive. ? Use heavy machinery. ? Drink alcohol. ? Take sleeping pills or medicines that cause drowsiness. ? Make important decisions or sign legal documents. ? Take care of children on your own. Activity ??? Return to your normal activities as told by your health care provider. Ask your health care provider what activities are safe for you. ??? Do not lift anything that is heavier than 10 lb (4.5 kg), or the limit that your health care provider tells you, until your health care provider says it is okay. ??? Do not play contact sports until your health care provider says it is okay. Incision care ??? Follow instructions from your health care provider about how to take care of an incision, if you have one. Make sure you: ? Wash your hands with soap and water before you change your bandage (dressing). If soap and water are not available, use hand it risk advisor. ? Change your dressing as told by your health care provider. ? Leave stitches (sutures), skin glue, or adhesive strips in place. These skin closures may need to stay in place for 2 weeks or longer. If adhesive strip edges start to loosen and curl up, you may trim the loose edges. Do not remove adhesive strips completely unless your health care provider tells you to do that. ??? Check your incision area every day for signs of infection. Check for: ? More redness, swelling, or pain. ? More fluid or blood. ? Warmth. ? Pus or a bad smell. Medicines ??? Take zfot-hmx-rvzyesl and prescription medicines only as told by your health care provider. ??? Do not drive or use heavy machinery while taking prescription pain medicines. Eating and drinking ??? Follow the diet recommended by your health care provider. ??? When you are hungry, begin eating light and bland foods such as toast. Gradually return to your regular diet. ??? If you vomit: ? Drink water, juice, or soup when you can drink without vomiting. ? Make sure you have little or no nausea before eating solid foods. General instructions ??? If you have sleep apnea, surgery and certain medicines can increase your risk for breathing problems. Follow instructions from your HCP about wearing your sleep device: ? Anytime you are sleeping, including during daytime naps. ? While taking prescription pain medicines, sleeping medicines, or medicines that make you drowsy. ??? Do not use any tobacco products, such as cigarettes, chewing tobacco, and e-cigarettes, for as long as possible. ??? If you smoke, do not smoke without supervision. ??? Keep all follow-up visits as told by your health care provider. This is important. Contact a health care provider if: ??? You have more redness, swelling, or pain around your incision. ??? You have more fluid or blood coming from your incision. ??? Your incision feels warm to the touch. ??? You have pus or a bad smell coming from your incision. ??? You have a fever. ??? You feel light-headed or you faint. ??? You develop a rash. ??? You keep feeling nauseous or keep vomiting. ??? You have very bad pain, even after taking the medicines your health care provider has prescribed or recommended. ??? You have constipation. Get help right away if: ??? You are unable to pass urine. ??? You have trouble breathing. Summary ??? Have a responsible adult stay with you for at least 24 hours after the procedure. ??? Nausea is common after a procedure. Make sure you have little or no nausea before eating solid foods. Follow the diet recommended by your health care provider. ??? Ask your health care provider what activities are safe for you. This information is not intended to replace advice given to you by your health care provider. Make sure you discuss any questions you have with your health care provider. Document Revised: 02/12/2019 Document Reviewed: 03/06/2017 [employer] Patient Education ? 2020 [employer]. documented in this encounter Plan of Treatment Not on file documented as of this encounter Visit Diagnoses Not on filedocumented in this encounter Care Teams Platform Consultant Relationship Specialty Start Date End Date Tyrell Magana MD [address] [place] [id number] PCP - General Family Medicine 11/15/23 documented as of this encounter
--- OUTSIDE RECORDS SUMMARY | 2025-05-09 13:55 | XMS_ITS | Encounter Summary ---
Author Organization [employer] Address [address] [place] [address] Care Team Providers Care Berry Grower Name Role Phone Tyrell Magana MD Primary Care Provider [phone]- [phone] Encounter Details Date Type Department Care Team (Late st Contact Info) Description 05/15/2021 Transcribed Document [facility] [place] [address] [place] [address] ProviderBen MD [address] [place], [place] [id number] 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 Tobacco Use Types Packs/Day Years [...] Ben ProviderMD - 05/15/2021 7:56 AM CDT [facility] Main OR Preop Summary Primary Physician: JOMAR JENKINS MD Finalized Date/Time: 05/15/21 15:48:11 Pt. Name: CELINE DC D.O.B./Sex: 1985 Female Med Rec #: [id number] Physician: JOMAR JENKINS MD Financial #: [id number] Pt. Type: O Room/Bed: /11 Admit/Disch: 05/15/21 06:21:00 - 05/15/21 10:33:00 Institution: [facility] PreOp Case Times Entry 1 In Preop 05/15/21 06:54:00 Ready for Holding n/a Room Patient Ready for 05/15/21 07:26:00 Surgery Patient Out of Preop 05/15/21 07:37:00 Patient Out of n/a Holding Room Last Modified By: Heather Lipscomb RN 05/15/21 15:48:10 [facility] PreOp Case Times Audit 05/15/21 15:48:10 Mold Maintenance Technician: [id number] Modifier: JUDITH <+> 1 Patient Out of Preop Finalized By: Heather Lipscomb, RN Document Signatures Signed By: Heather Lipscomb RN 05/15/21 15:48 Electronically signed by [facility] Conversion Rehabilitation Inspector Cerner at 03/13/2023 7:11 PM CDT documented in this encounter Plan of Treatment Not on file documented as of this encounter Visit Diagnoses Not on filedocumented in this encounter Care Teams Berry Grower Relationship Specialty Start Date End Date Tyrell Magana MD [address] [place] [id number] PCP - General Family Medicine 11/15/23 documented as of this encounter
--- OUTSIDE RECORDS SUMMARY | 2025-05-09 13:55 | XMS_ITS | Encounter Summary ---
Author Organization [facility] Address [address] [place] [address] Care Team Providers Care Project Manager/Team Coach Name Role Phone Dustin Gomez MD Primary Care Provider Unavailabl e Doctor, Vicki Primary Care Provider Unavailabl e Encounter Details Date Type Department Care Team (Late st Contact Info) Description 07/04/2009 Abstract Initial Department [address] [facility] [place] [address] [place], [place] 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 Tobacco Use Types Packs/Day Years [...] on filedocumented in this encounter Care Teams Project Manager/Team Coach Relationship Specialty Start Date End Date Dustin Gomez MD PCP - General 08/02/08 02/11/14 Doctor, ELOISA Vides PCP - General Family Medicine 02/12/14 12/30/17 documented as of this encounter
--- OUTSIDE RECORDS SUMMARY | 2025-05-09 13:55 | XMS_ITS | Encounter Summary ---
Author Organization [employer] Address [address] [place] [address] Care Team Providers Care Metal Buggy Operator Name Role Phone yTrell Magana MD Primary Care Provider +1- [phone] Encounter Details Date Type Department Care Team (Late st Contact Info) Description 10/10/2019 Transcribed Document [facility] [place] [address] [place] [address] ProviderBen MD [address] [place], [place] [address] 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 Tobacco Use Types Packs/Day Years [...] Note - Ben Quintanilla MD - 10/10/2019 3:14 PM SPARE HAND CARDING Patient Education Materials Follows: Ureteral Stent Implantation Ureteral stent implantation is a procedure to insert (implant) a flexible, soft, plastic tube (stent) into a tube (ureter) that drains urine from the kidneys. The stent supports the ureter while it heals and helps to drain urine from the kidneys. You may have a ureteral stent implanted after having a procedure to remove a blockage from the ureter (ureterolysis or pyeloplasty).?You may also have a stent implanted to open the flow of urine when you have a blockage caused by a kidney stone, tumor, blood clot, or infection. You have two ureters, one on each side of the body. The ureters connect the kidneys to the organ that holds urine until it passes out of the body (bladder). The stent is placed so that one end is in the kidney, and one end is in the bladder. The stent is usually taken out after your ureter has healed. Depending on your condition, you may have a stent for just a few weeks, or you may have a long-term stent that will need to be replaced every few months. Tell a health care provider about: ??? Any allergies you have. ??? All medicines you are taking, including vitamins, herbs, eye drops, creams, and whxi-bep-hkanjnx medicines. ??? Any problems you or family members have had with anesthetic medicines. ??? Any blood disorders you have. ??? Any surgeries you have had. ??? Any medical conditions you have. ??? Whether you are or may be . What are the risks? Generally, this is a safe procedure. However, problems may occur, including: ??? Infection. ??? Bleeding. ??? Allergic reactions to medicines. ??? Damage to other structures or organs. Tearing (perforation) of the ureter is possible. ??? Movement of the stent away from where it is placed during surgery (migration). What happens before the procedure? Ask your health care provider about: ? Changing or stopping your regular medicines. This is especially important if you are taking diabetes medicines or blood thinners. ? Taking medicines such as aspirin and ibuprofen. These medicines can thin your blood. Do not take these medicines before your procedure if your health care provider instructs you not to. ??? Follow instructions from your health care provider about eating or drinking restrictions. ??? Do not drink alcohol and do not use any tobacco products before your procedure, as told by your health care provider. ??? You may be given antibiotic medicine to help prevent infection. ??? Plan to have someone take you home after the procedure. ??? If you go home right after the procedure, plan to have someone with you for 24 hours. What happens during the procedure? An IV tube will be inserted into one of your veins. ??? You will be given a medicine to make you fall asleep (general anesthetic). You may also be given a medicine to help you relax (sedative). ??? A thin, tube-shaped instrument with a light and tiny camera at the end (cystoscope) will be inserted into your urethra. The urethra is the tube that drains urine from the bladder out of the body. In men, the urethra opens at the end of the penis. In women, the urethra opens in front of the vaginal opening. ??? The cystoscope will be passed into your bladder. ??? A thin wire (guide wire) will be passed through your bladder and into your ureter. This is used to guide the stent into your ureter. ??? The stent will be inserted into your ureter. ??? The guide wire and the cystoscope will be removed. ??? A flexible tube (catheter) will be inserted through your urethra so that one end is in your bladder. This helps to drain urine from your bladder. The procedure may vary among hospitals and health care providers. What happens after the procedure? Your blood pressure, heart rate, breathing rate, and blood oxygen level will be monitored often until the medicines you were given have worn off. ??? You may continue to receive medicine and fluids through an IV tube. ??? You may have some soreness or pain in your abdomen and urethra. Medicines will be available to help you. ??? You will be encouraged to get up and walk around as soon as you can. ??? You will have a catheter draining your urine. ??? You will have some blood in your urine. ??? Do not drive for 24 hours if you received a sedative. This information is not intended to replace advice given to you by your health care provider. Make sure you discuss any questions you have with your health care provider. Document Released: 11/11/2001 Document Revised: 04/21/2017 Document Reviewed: 05/28/2016 [employer] Patient Education ? 2019 [employer]. Lithotripsy, Care After This sheet gives you [...] these instructions at home: Medicines ??? Take xiot-fmh-wvstfsd and prescription medicines only as told by [...] what activities are safe for you. ??? If directed, strain all urine through [...] have with your health care provider. Document Released: 12/03/2008 Document Revised: 10/05/2017 Document Reviewed: 10/05/2017 [employer] Patient Education ? 2019 [employer]. Outpatient Surgery, Adult, Care After These instructions [...] and water are not available, use hand model home sales greeter. ? Change your dressing as told by [...] or a bad smell. Medicines ??? Take pubz-hrn-vosjtey and prescription medicines only as told by [...] have with your health care provider. Document Released: 03/06/2017 Document Revised: 06/22/2018 Document Reviewed: 03/06/2017 [employer] Patient Education ? 2019 [employer]. documented in this encounter Plan of Treatment Not on file documented as of this encounter Visit Diagnoses Not on filedocumented in this encounter Care Teams Metal Buggy Operator Relationship Specialty Start Date End Date Tyrell Magana MD [address] [place] [address] PCP - General Family Medicine 11/15/23 documented as of this encounter
--- OUTSIDE RECORDS SUMMARY | 2025-05-09 13:55 | XMS_ITS | Encounter Summary ---
Author Organization [employer] Address [address] [place] [address] Care Team Providers Care Installer Soft Top Name Role Phone Tyrell Magana MD Primary Care Provider +1- [phone] Encounter Details Date Type Department Care Team (Late st Contact Info) Description 10/10/2019 Transcribed Document [facility] [place] [address] [place] [address] ProviderBen MD [address] [place] [address] 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 Tobacco Use Types [...] Conversion Note - Ben ProviderMD - 10/10/2019 12:15 PM ROLL TENDER [facility] Main OR Preop Summary Primary Physician: JOMAR JENKINS MD Finalized Date/Time: 10/10/19 12:06:45 Pt. Name: CELINE DC /Sex: 1985 Female Med Rec #: [id number] Physician: JOMAR JENKINS MD Financial #: [id number] Pt. Type: O Room/Bed: /1 Admit/Disch: 10/10/19 09:16:00 - Institution: [facility] PreOp Case Times Entry 1 In Preop 10/10/19 09:30:00 Ready for Holding n/a Room Patient Ready for 10/10/19 11:28:00 Surgery Patient Out of Preop 10/10/19 12:02:00 Patient Out of n/a Holding Room Last Modified By: Heather Lipscomb RN 10/10/19 12:06:44 Finalized By: Heather Lipscomb, RN Document Signatures Signed By: Heather Lipscomb RN 10/10/19 12:06 Electronically signed by [facility] Conversion Spray Foam Installer Cerner at 03/13/2023 7:11 PM CDT documented in this encounter Plan of Treatment Not on file documented as of this encounter Visit Diagnoses Not on filedocumented in this encounter Care Teams Installer Soft Top Relationship Specialty Start Date End Date Tyrell Magana MD [address] [place] [address] PCP - General Family Medicine 11/15/23 documented as of this encounter
--- OUTSIDE RECORDS SUMMARY | 2025-05-09 13:55 | XMS_ITS | Encounter Summary ---
Author Organization [employer] Address [address] [place] [address] Care Team Providers Care Control Panel Assembler Name Role Phone Tyrell Magana MD Primary Care Provider +1- [phone] Encounter Details Date Type Department Care Team (Late st Contact Info) Description 05/15/2021 Transcribed Document [facility] [place] [facility] [place] [address] ProviderBen MD [address] [place] [id number] 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 Tobacco Use Types Packs/Day Years [...] Note - Ben Quintanilla MD - 05/15/2021 8:37 AM CDT DATE OF PROCEDURE: 05/15/2021 SURGEON: Lincoln Dey MD PREOPERATIVE DIAGNOSIS: Right renal stone. POSTOPERATIVE DIAGNOSIS: Right renal stone. PROCEDURE PERFORMED: Right extracorporeal shockwave lithotripsy. ANESTHESIA: General. BLOOD LOSS: None. COMPLICATIONS: None. SPECIMENS: None. DESCRIPTION OF PROCEDURE: The patient was correctly identified in the preoperative holding area. Informed consent was obtained. She was taken to procedure room and positioned in supine position. Anesthesia induced. Once all appropriate lines and monitors were placed, she was then repositioned on the Lithotripter table to position the stone within the Lithotripter focus using biplanar fluoroscopy. All pressure points were padded. Proper time-out of procedure completed. Preoperative antibiotics had been given. With the stone within the Lithotripter focus, escalating voltage from 18-24 kv was used throughout the case. A total of 2400 shocks were administered to the stone. A 3-minute pause was performed after 100 shocks to allow for renal vasoconstriction. Serial fluoroscopy was used throughout the case to confirm stone within the Lithotripter focus and to monitor fragmentation of stone. At the conclusion of procedure, adequate fragmentation was identified. DISPOSITION: The patient tolerated the procedure well. She was taken to recovery room in stable condition. She was discharged home with instructions for outpatient followup with [facility]. /[id number] Lincoln Dey MD JDJ/AQ / JDJ / MODL /[id number] Electronically signed by [facility] Conversion Nuclear Medicine Pet Ct Technologist Cerner at 03/13/2023 6:58 PM CDT documented in this encounter Plan of Treatment Not on file documented as of this encounter Visit Diagnoses Not on filedocumented in this encounter Care Teams Control Panel Assembler Relationship Specialty Start Date End Date Tyrell Magana MD [address] [place] [address] PCP - General Family Medicine 11/15/23 documented as of this encounter
--- OUTSIDE RECORDS SUMMARY | 2025-05-09 13:55 | XMS_ITS | Encounter Summary ---
Author Organization [employer] Address [address] [place] [address] Care Team Providers Care Soft Drink Powder Mixer Name Role Phone Tyrell Magana MD Primary Care Provider +1- [phone] Encounter Details Date Type Department Care Team (Late st Contact Info) Description 10/09/2019 Transcribed Document [facility] [place] [address] [place] [address] ProviderBen MD [address] [place] [address] 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 Tobacco Use Types [...] Cerner Conversion Note - Historical ProviderMD - 10/09/2019 6:09 PM CASER IN PAT Adult Entered On: 10/09/2019 18:11 EST Performed On: 10/09/2019 18:09 EST by Zainab Morales RN Pain Assessment Pain Assessment : Initial assessment Pain Scale Used : 0-10 Scale Location : Flank, left JILLIAN, LESLIE MACIAS - 10/10/2019 10:57 EST Height and Weight, Clinical Dosing Height Source : Measured Height Entry Format : [place] Height, Inches : 67 Inch(Converted to: 5 ft 7 Inch, 170.18 cm) Clinical Height : 170.18 cm Weight Source : Standing scale Weight Entry Format : [place] Clinical [facility] Weight : 101.36 kg Weight, Pounds : 223 lb Body Surface Area (BSA) : 2.12 m2 Body Mass Index : 35 kg/m2 (HI) [place] Body Weight : 61 kg GILBERTO WALSH RN - 10/10/2019 10:57 EST Health Histories Smoking Status : Never (less than 100 in lifetime; none in last 30 days) Smokeless Tobacco Status : Never Zainab Morales RN - 10/09/2019 18:09 EST 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 (As Of: 10/10/2019 10:59:31 EST) Tobacco: Never (less than 100 in lifetime) Smoking Status. (Last Updated: 10/09/2019 18:09:18 EST by Zainab Morales RN) Alcohol: Alcohol Use Comment rarely. (Last Updated: 06/02/2017 07:34:25 EDT by CLEVELAND SANCHEZ RN) Substance Abuse: Drug Use Hx: No. Use in Last 12 Months: No. (Last Updated: 10/09/2019 18:09:23 EST by Zainab Morales RN) Infectious Disease History Infectious Disease History : Chicken pox/Shingles Fever/Chills Last 48 Hours : No Travel To Regions with Travel Advisories : No Travel Outside [place] Within Last 30 Days : No Contact With Traveler to Advisory Region : No Tuberculosis Symptoms : None Zainab Morales RN - 10/09/2019 18:09 EST Anesthesia/Transfusion History Blood Transfusion Acceptable to Patient : Yes GILBERTO WALSH RN - 10/10/2019 10:57 EST Family History of Anesthesia Reaction : No prior transfusion(s) Transfusion History : Prior anesthesia without reaction Family History of Anesthesia Reaction : None Zainab Morales RN - 10/09/2019 18:09 EST Advance Directive Patient has Advance Directive *Q : No, patient refuses Advance Directive information Zainab Morales RN - 10/09/2019 18:09 EST [place] Suicide Severity Rating Scale (C-SSRS) CSSRS Past Month Wish to be : No CSSRS Past Month Suicidal Thoughts : No CSSRS Lifetime Suicide Behavior : No Suicide Severity Rating Score : 0 Suicide Severity Rating : No Additional Care Required at this time Zainab Morales RN - 10/09/2019 18:09 EST Psychosocial History Do You Have a History of the Following? : Patient denies history Currently in Unsafe Situation : No Zainab Morales RN - 10/09/2019 18:09 EST General Info Support Person/Patient Alfalfa Dehydrator Operator : Yes Support Person/Pt Rep Name : Moy [phone] Want Family/Rep/Phys Notified of Admit : No Information Obtained From : Patient Primary Language : Finnish Preferred Communication Mode : Verbal Communication Barrier : None Zainab Morales RN - 10/09/2019 18:09 EST Porter Scale Porter Sensory Perception : No impairment Porter Moisture : Rarely moist Porter Activity : Walks frequently Porter Mobility : No limitation Porter Nutrition : Adequate Porter Friction and Shear : No apparent problem Porter Score : 22 GILBERTO WALSH RN - 10/10/2019 10:57 EST Sleep Apnea Risk Assmt BMI Greater Than 35 kg/m2 : Yes Neck Circumference Greater Than 40 cm : Yes STOP-BANG Sleep Apnea Risk Level Score : 4 GILBERTO WALSH RN - 10/10/2019 10:57 EST Hx of Obstructive Sleep Apnea Diagnosis : No Snore Loudly : Yes Tired, Fatigued, or Sleepy During Day : No Observed Stopping Breathing During Sleep : No Have/Are Being Treated for Hypertension : Yes Age over 50 Years Old : No Gender Male : No Zainab Morales RN - 10/09/2019 18:09 EST Pain Scale Intensity : 2 GILBERTO WALSH RN - 10/10/2019 10:57 EST Image 4 - Images currently included in the form version of this document have not been included in the text rendition version of the form. documented in this encounter Plan of Treatment Not on file documented as of this encounter Visit Diagnoses Not on filedocumented in this encounter Care Teams Soft Drink Powder Mixer Relationship Specialty Start Date End Date Tyrell Magana MD [address] [place] [address] PCP - General Family Medicine 11/15/23 documented as of this encounter
--- OUTSIDE RECORDS SUMMARY | 2025-05-09 13:55 | XMS_ITS | Encounter Summary ---
Author Organization [facility] Address [address] [place] [address] Care Team Providers Care Cable Installer Repairer Helper Name Role Phone Dustin Gomez MD Primary Care Provider Unavailabl e Doctor, Vicki Primary Care Provider Unavailabl e Encounter Details Date Type Department Care Team (Late st Contact Info) Description 09/21/2008 Historical Encounter Global Jesus Osborne APRN 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 Tobacco Use Types Packs/Day Years [...] on filedocumented in this encounter Care Teams Cable Installer Repairer Helper Relationship Specialty Start Date End Date Dustin Gomez MD PCP - General 08/02/08 02/11/14 Vicki Villavicencio [place] PCP - General Family Medicine 02/12/14 12/30/17 documented as of this encounter
--- OUTSIDE RECORDS SUMMARY | 2025-05-09 13:55 | XMS_ITS | Encounter Summary ---
Author Organization [facility] Address [address] [place] [address] Care Team Providers Care Real Estate Sales Supervisor Name Role Phone Dustin Gomez MD Primary Care Provider Unavailabl e Doctor, Vicki Primary Care Provider Unavailabl e Encounter Details Date Type Department Care Team (Late st Contact Info) Description 08/14/2007 Historical Encounter Global Leann Bond MD [address] [facility] [address] [place] [address] 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 Tobacco Use Types Packs/Day Years [...] on filedocumented in this encounter Care Teams Real Estate Sales Supervisor Relationship Specialty Start Date End Date Dustin Gomez MD PCP - General 08/02/08 02/11/14 Vicki Villavicencio [place] PCP - General Family Medicine 02/12/14 12/30/17 documented as of this encounter
--- OUTSIDE RECORDS SUMMARY | 2025-05-09 13:55 | XMS_ITS | Clinical Summary ---
Author Organization [facility] Address [address] [place] [address] Care Team Providers Care Cardiovascular Disease Specialist Name Role Phone Oriana Murcia Primary Care Provider Family History 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 Relation Name Comments Cardiac disorder Father Conversions - Other Father High blo od cholesterol Hypertension Father Conversions - Other Mother High blo od cholesterol Hypertension Mother Other cancer Mother Relation Name Status Comments Father Mother 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 Tobacco Use Types Packs/Day Years Used Date Smoking Tobacco: Never Comments Unknown Sex and Gender Information Value Date Recorded Sex Assigned at Not on file Legal Sex Female 7:31 PM EDT Gender Identity Not on file Sexual Orientation Not on file Last Filed Vital Signs Vital Sign Reading Time Taken Comments Blood Pressure - - Pulse - - Temperature - - Respiratory Rate - - Oxygen Saturation - - Inhaled Oxygen Concentration - - Weight 98 kg (216 lb 0.1 oz) 07/31/2015 8:07 AM EDT Height 169.2 cm (5' 6.6 ) 07/31/2015 8:07 AM EDT Body Mass Index 34.24 07/31/2015 8:07 AM EDT Plan of Treatment Not on file Insurance ANTHEM Care Teams Cardiovascular Disease Specialist Relationship Specialty Start Date End Date Oriana Murcia PA [address] [place] [address] PCP - General 04/10/21
--- OUTSIDE RECORDS SUMMARY | 2025-05-09 13:55 | XMS_ITS | Encounter Summary ---
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 [facility] [place] [address] CELINE DC :1985 Visit Time:10/10/2019 What to do next Your Diagnosis Calculus of kidney, Calculus of kidney Instructions From Your Care Team Diet after Discharge: Resume usual diet as tolerated, Do not drink any alcoholic beverages, Drink at least 8-10 glasses of water per day Activity after Discharge: As tolerated, Rest and relax today, No strenuous activity Lifting Restrictions: No heavy lifting over [address] IN [address] Driving after Discharge: Do not drive until 24 hours after no longer taking pain medications May Return to Work/School: Showering/Bathing: May shower, No tub bathing, soaking or swimming Notify Provider of: blood clots in urine, unable to urinate, fever >101 Wound/Incision Care after Discharge: Keep operative site/wound site clean and dry, DO NOT change dressing; may reinforce it as needed eswl procedure Discharge Follow Up Instructions: Provide discharge instructions for ESWL procedure Follow Up Instructions: Schedule follow up with [facility] Follow Up Instructions: F/U 1 weeks Follow Up Instructions: stent care Follow-Up Appointments Follow Up with JOMAR JENKINS MD When 10/18/2019 03:45 PM EST Comments Appointment has been made JESICA SCHEDULED Where: [address] [place] [address] Scooters (1) Medications What How Much When Instructions Next Dose acetaminophen-hydrocodone ([place] 7.5 mg-325 mg oral tablet) 1 Tablet(s) Oral Every 6 Hours as needed for for pain Duration: 3 Day(s) Printed Prescription DULoxetine (Cymbalta 60 mg oral delayed release capsule) Oral Every Day DULoxetine (Cymbalta) 60 Milligram(s) Oral Every Day ethinyl estradiol-norethindrone (Taytulla 1 mg-20 mcg oral capsule) Oral Every Day fluticasone nasal (Childrens Flonase 50 mcg/ inh nasal spray) 1 [place](s) Nasal Every Day glycopyrrolate 1 Milligram(s) Oral At Bedtime levocetirizine (Xyzal 5 mg oral tablet) Oral Every Evening lisinopril 10 Milligram(s) Oral Every Day multivitamin 1 tablet Oral Every Day topiramate (Topamax 100 mg oral tablet) 1/2 Tab Oral Every Day zafirlukast (Accolate 20 mg oral tablet) 1 Tablet(s) Oral Two Times A Day Take your medications faithfully. Do NOT skip medication. Do NOT stop taking medications without the direction of a physician. Carry a list of your medications with you at all times, and take this medication list with you to your first follow up visit. Report any side effects. Avoid herbal remedies unless discussed with your physician. As part of your treatment plan, your physician may have prescribed a limited course of a controlled substance. This medication may be given to help people with moderate or severe pain or for other medical conditions, but there are risks involved with treatment. Common side effects may include nausea, constipation, drowsiness, sweating, itching, dry mouth, and rash. More serious side effects may include cognitive and motor impairment, like problems with thinking, concentrating, alertness, and movement (e.g. slowed reflexes), and driving and operating heavy machinery can be dangerous. It is important for you to talk to your physician if you have these side effects or questions. These controlled substances can produce physical dependence and be habit-forming if taken for an extended period of time, which means that the body has gotten used to them and may experience withdrawal symptoms if they are abruptly stopped. Withdrawal symptoms can include runny nose, sweating, goose bumps, diarrhea, abdominal cramping, rapid heartbeat, difficulty sleeping, and nervousness. Please dispose of unused and medications per pharmacy guidance. Education Materials Ureteral Stent Implantation Ureteral stent implantation is [...] a blockage from the ureter (ureterolysis or pyeloplasty). You may also have a stent implanted to [...] including vitamins, herbs, eye drops, creams, and gfkp-gyu-cqwgyll medicines. ??? Any problems you or family [...] 11/11/2001 Document Revised: 04/21/2017 Document Reviewed: 05/28/2016 [employer] Patient Education ?? 2019 [employer]. Lithotripsy, Care After This sheet gives you [...] may continue to pass for up to 4???8 weeks. ? If you have severe pain [...] these instructions at home: Medicines ??? Take epvu-jfe-qnuckwj and prescription medicines only as told by [...] ??? Most people can resume normal activities 1???2 days after the procedure. Ask your health [...] ??? Most people can resume normal activities 1???2 days after the procedure. Ask your health [...] 12/03/2008 Document Revised: 10/05/2017 Document Reviewed: 10/05/2017 [employer] Patient Education ?? 2019 [employer] Outpatient Surgery, Adult, Care After These instructions [...] and water are not available, use hand speech pathology assistant. ? Change your dressing as told by [...] or a bad smell. Medicines ??? Take bxeb-gsn-polkynz and prescription medicines only as told by [...] 03/06/2017 Document Revised: 06/22/2018 Document Reviewed: 03/06/2017 [employer] Patient Education ?? 2019 [employer] acetaminophen and hydrocodone (a SEET a MIN oh fen and mya galan KOE done) Hycet, Lorcet, [place], Verdrocet, Vicodin, Xodol, Zamicet What is the most important information I should know about acetaminophen and hydrocodone? MISUSE OF OPIOID MEDICINE CAN CAUSE ADDICTION, OVERDOSE, OR . Keep the medication in a place where others cannot get to it. An overdose of acetaminophen can damage your liver or cause . Call your doctor at once if you have pain in your upper stomach, loss of appetite, dark urine, or jaundice (yellowing of your skin or eyes). Taking opioid medicine during may cause life-threatening withdrawal symptoms in the . Fatal side effects can occur if you use opioid medicine with alcohol, or with other drugs that cause drowsiness or slow your breathing. Stop taking this medicine and call your doctor right away if you have skin redness or a rash that spreads and causes blistering and peeling. What is acetaminophen and hydrocodone? Hydrocodone is an opioid pain medication, sometimes called a narcotic. Acetaminophen is a less potent pain reliever that increases the effects of hydrocodone. Acetaminophen and hydrocodone is a combination medicine used to relieve moderate to severe pain. Acetaminophen and hydrocodone may also be used for purposes not listed in this medication guide. What should I discuss with my healthcare provider before taking acetaminophen and hydrocodone? You should not use this medicine if you are allergic to acetaminophen or hydrocodone, or if you have: ?? severe asthma or breathing problems; or ?? a blockage in your stomach or intestines. Tell your doctor if you have ever had: ?? liver disease; ?? a drug or alcohol addiction; ?? kidney disease; ?? a head injury or seizures; ?? urination problems; or ?? problems with your thyroid, pancreas, or gallbladder. If you use opioid medicine while you are , your baby could become dependent on the drug. This can cause life-threatening withdrawal symptoms in the baby after it is born. Babies born dependent on opioids may need medical treatment for several weeks. Do not breast-feed. This medicine can pass into breast milk and cause drowsiness, breathing problems, or in a nursing baby. How should I take acetaminophen and hydrocodone? Follow all directions on your prescription label. Never take this medicine in larger amounts, or for longer than prescribed. An overdose can damage your liver or cause . Tell your doctor if the medicine seems to stop working as well in relieving your pain. Always check your bottle to make sure you have received the correct pills (same brand and type) of medicine prescribed by your doctor. Never share this medicine with another person, especially someone with a history of drug abuse or addiction. MISUSE CAN CAUSE ADDICTION, OVERDOSE, OR . Keep the medicine in a place where others cannot get to it. Selling or giving away acetaminophen and hydrocodone is against the law. Measure liquid medicine carefully. Use the dosing syringe provided, or use a medicine dose-measuring device (not a kitchen spoon). If you need surgery or medical tests, tell the doctor ahead of time that you are using this medicine. You should not stop using this medicine suddenly. Follow your doctor's instructions about tapering your dose. Store at room temperature away from moisture and heat. Keep track of your medicine. You should be aware if anyone is using it improperly or without a prescription. Do not keep leftover opioid medication. Just one dose can cause in someone using this medicine accidentally or improperly. Ask your pharmacist where to locate a drug take-back disposal program. If there is no take-back program, flush the unused medicine down the toilet. What happens if I miss a dose? Since this medicine is used for pain, you are not likely to miss a dose. Skip any missed dose if it is almost time for your next dose. Do not use two doses at one time. What happens if I overdose? Seek emergency medical attention or call the Poison Help line at . An overdose of acetaminophen and hydrocodone can be fatal. The first signs of an acetaminophen overdose include loss of appetite, nausea, vomiting, stomach pain, sweating, and confusion or weakness. Later symptoms may include pain in your upper stomach, dark urine, and yellowing of your skin or the whites of your eyes. Overdose can also cause severe muscle weakness, pinpoint pupils, very slow breathing, extreme drowsiness, or coma. What should I avoid while taking acetaminophen and hydrocodone? Avoid driving or operating machinery until you know how this medicine will affect you. Dizziness or drowsiness can cause falls, accidents, or severe injuries. Do not drink alcohol. Dangerous side effects or could occur. Ask a doctor or pharmacist before using any other medicine that may contain acetaminophen (sometimes abbreviated as APAP). Taking certain medications together can lead to a fatal overdose. What are the possible side effects of acetaminophen and hydrocodone? Get emergency medical help if you have signs of an allergic reaction: hives; difficulty breathing; swelling of your face, lips, tongue, or throat. Opioid medicine can slow or stop your breathing, and may occur. A person caring for you should seek emergency medical attention if you have slow breathing with long pauses, blue colored lips, or if you are hard to wake up. In rare cases, acetaminophen may cause a severe skin reaction that can be fatal. This could occur even if you have taken acetaminophen in the past and had no reaction. Stop taking this medicine and call your doctor right away if you have skin redness or a rash that spreads and causes blistering and peeling. Call your doctor at once if you have: ?? noisy breathing, sighing, shallow breathing; ?? a light-headed feeling, like you might pass out; ?? liver problems--nausea, upper stomach pain, tiredness, loss of appetite, dark urine, andrew-colored stools, jaundice (yellowing of the skin or eyes); or ?? low cortisol levels-- nausea, vomiting, loss of appetite, dizziness, worsening tiredness or weakness. Seek medical attention right away if you have symptoms of serotonin syndrome, such as: agitation, hallucinations, fever, sweating, shivering, fast heart rate, muscle stiffness, twitching, loss of coordination, nausea, vomiting, or diarrhea. Serious side effects may be more likely in older adults and those who are overweight, malnourished, or debilitated. Long-term use of opioid medication may affect fertility (ability to have children) in men or women. It is not known whether opioid effects on fertility are permanent. Common side effects include: ?? dizziness, drowsiness, feeling tired; ?? nausea, vomiting, stomach pain; ?? constipation; or ?? headache. This is not a complete list of side effects and others may occur. Call your doctor for medical advice about side effects. You may report side effects to FDA at 2-450-HNA-3892. What other drugs will affect acetaminophen and hydrocodone? You may have breathing problems or withdrawal symptoms if you start or stop taking certain other medicines. Tell your doctor if you also use an antibiotic, antifungal medication, heart or blood pressure medication, seizure medication, or medicine to treat HIV or hepatitis C. Opioid medication can interact with many other drugs and cause dangerous side effects or . Be sure your doctor knows if you also use: ?? cold or allergy medicines, bronchodilator asthma/COPD medication, or a diuretic ('water pill'); ?? medicines for motion sickness, irritable bowel syndrome, or overactive bladder; ?? other narcotic medications--opioid pain medicine or prescription cough medicine; ?? a sedative like Valium--diazepam, alprazolam, lorazepam, Xanax, Klonopin, Versed, and others; ?? drugs that make you sleepy or slow your breathing--a sleeping pill, muscle relaxer, medicine to treat mood disorders or mental illness; ?? drugs that affect serotonin levels in your body--a stimulant, or medicine for depression, Parkinson's disease, migraine headaches, serious infections, or nausea and vomiting. This list is not complete. Other drugs may affect acetaminophen and hydrocodone, including prescription and bqrw-ipo-ctjhcnx medicines, vitamins, and herbal products. Not all possible interactions are listed here. Where can I get more information? Your doctor or pharmacist can provide more information about acetaminophen and hydrocodone. Remember, keep this and all other medicines out of the reach of children, never share your medicines with others, and use this medication only for the indication prescribed. Every effort has been made to ensure that the information provided by [employer] ('[employer]') is accurate, up-to-date, and complete, but no guarantee is made to that effect. Drug information contained herein may be time sensitive. [employer] information has been compiled for use by healthcare practitioners and consumers in the [place] and therefore [employer] does not warrant that uses outside of the [place] are appropriate, unless specifically indicated otherwise. [employer]'s drug information does not endorse drugs, diagnose patients or recommend therapy. [employer] drug information is an informational resource designed to assist licensed healthcare practitioners in caring for their patients and/or to serve consumers viewing this service as a supplement to, and not a substitute for, the expertise, skill, knowledge and judgment of healthcare practitioners. The absence of a warning for a given drug or drug combination in no way should be construed to indicate that the drug or drug combination is safe, effective or appropriate for any given patient. [employer] does not assume any responsibility for any aspect of healthcare administered with the aid of information [employer] provides. The information contained herein is not intended to cover all possible uses, directions, precautions, warnings, drug interactions, allergic reactions, or adverse effects. If you have questions about the drugs you are taking, check with your doctor, nurse or pharmacist. Copyright 5099-7104 [facility]. Version: 15.02. Revision Date: 10/02/2018. Emergency Awareness and Preventative Care STROKE is an EMERGENCY Every Minute Counts Act FAST and Check for these signs: FACE Does the face look uneven? ARM Does one arm drift down? SPEECH Does their speech sound strange? TIME Call at any sign of stroke Stroke Risk Factors Atrial Fibrillation (irregular heartbeat) Diabetes Family history of stroke Heart Disease Heavy alcohol use High Blood Pressure High Cholesterol Physical inactivity and obesity Smoking Cigarette Smoking The facts are clear, cigarette smoking will shorten your life. Smoking can cause many illnesses along the way. As a healthcare provider, we recommend that you stop smoking. Assistance with quitting is available by contacting 1-761-AOFE-NOW. This is a free resource providing counseling, support, and referral. Or you may contact your personal physician. National Suicide Prevention Lifeline: The National Suicide Prevention Lifeline is a national network of local crisis centers that provides free and confidential emotional support to people in suicidal crisis or emotional distress 24 hours a day, 7 days a week. Don't Wait! Stop a Heart Attack Before it Starts What is a heart attack? A heart attack is damage or to a part of the heart from severely decreased or lack of blood flow to the heart. Over time, arteries can become narrow from the buildup of fat and cholesterol, which is called plaque. The plaque can rupture causing a blood clot to form. When the blood clot forms, the artery can become severely narrowed or completely blocked, causing a heart attack. Heart attack is the leading cause of in the [place]. 85% of muscle damage occurs within the first 2 hours. Delay in the recognition of heart attack symptoms increases the chances of . Know the early symptoms of a heart attack: Nausea Feeling of fullness in chest Jaw Pain Pain that travels down one or both arms Fatigue/being tired Anxiety Back Pain Chest pressure, squeezing, or discomfort Shortness of breath Sweating, or a cold sweat Feeling of impending doom There are unusual signs of a heart attack, too! Women, the elderly, and diabetics may present with atypical symptoms: Fainting/dizziness Weakness Confusion Risk Factors for a Heart Attack Some heart disease risk factors, such as age and family history, cannot be changed. Others, like smoking and lack of exercise, can be changed. Smoking High Cholesterol High Blood Pressure Family History Obesity Age Gender (Males are at higher risk) Lack of Exercise Diabetes Diet Stress Excessive Alcohol Intake If you or someone you know is experiencing the signs and symptoms of a heart attack, DON???T DELAY. Call immediately and seek help. If someone collapses, perform CPR! Do not attempt to drive if you are having symptoms of heart attack. Hands-Only CPR Why Hands-Only CPR? Hands-Only CPR has been shown to be as effective as conventional CPR for cardiac arrests that occur outside of a hospital. Survival depends on immediately receiving CPR from someone nearby. How do you perform Hands-Only CPR? There are two easy steps: Call if you see a teen or adult collapse Push hard and fast in the center of the chest at a beat of 100 beats per minute. Save a life! 4 WAYS TO GET AHEAD OF SEPSIS SEPSIS is a MEDICAL EMERGENCY. Time matters! Infections put you and your family at risk for a life-threatening condition called sepsis. Sepsis is the body's extreme response to an infection. It is life-threatening, and without timely treatment, sepsis can rapidly lead to tissue damage, organ failure, and . Sepsis happens when an infection you already have-in your skin, lungs, urinary tract or somewhere else-triggers a chain reaction throughout your body. 1 PREVENT INFECTIONS Take good care of chronic conditions. Talk to your doctor about getting the recommended vaccines. 2 PRACTICE GOOD HYGIENE Wash your hands frequently. Keep cuts or open sores clean and covered until they are healed. 3 KNOW THE SYMPTOMS Confusion or disorientation Shortness of breath High heart rate Fever, shivering, or feeling very cold Extreme pain or discomfort Clammy or sweaty skin 4 ACT FAST Get medical care IMMEDIATELY if you suspect sepsis or if you have an infection that is not getting better or is getting worse. To learn more about sepsis and how to prevent infections, visit www.cdc.gov/sepsis. Test Results Laboratory or Other Results This Visit (last charted value for your 10/10/2019 visit) General Chemistry 10/10/2019 1:43 PM Glucose POC2: 73 mg/dL -- Normal range between ( 70 and 110 ) Device Comment 1: Device Comment 1 Diagnostic Radiology 10/10/2019 10:40 AM CR Abdomen 1 Vw: CR Abdomen 1 Vw Patient Name:CELINE DC I have received this information and was given the opportunity to ask questions. Patient/Information Support Project Manager Name: Patient/Information Support Project Manager Signature: Relationship to Patient: Clinician/Hospital Information Support Project Manager Signature: Date: Electronically signed by Segundo [facility] Conversion Typewriter Assembly And [employer] Inspector Edgarner at 03/13/2023 7:23 PM CDT documented in this encounter Plan of Treatment Not on file documented as of this encounter Visit Diagnoses Not on filedocumented in this encounter Care Teams Outreach Counselor Relationship Specialty Start Date End Date Tyrell Magana MD [address] [place] [id number] PCP - General Family Medicine 11/15/23 documented as of this encounter
--- OUTSIDE RECORDS SUMMARY | 2025-05-09 13:55 | XMS_ITS | Encounter Summary ---
Author Organization [employer] Address [address] [place] [address] Care Team Providers Care Laundry Tub Maker Name Role Phone Tyrell Magana MD Primary Care Provider +1- [phone] Encounter Details Date Type Department Care Team (Late st Contact Info) Description 05/15/2021 Transcribed Document [facility] [place] [address] [place] [address] ProviderBen MD [address] [place] [address] 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 Tobacco Use Types [...] Conversion Note - Ben ProviderMD - 05/15/2021 10:30 AM CDT [facility] [place] [address] CELINE DC :1985 Visit Time:05/15/2021 What to do next Your Diagnosis Calculus of kidney, Calculus of kidney Instructions From Your Care Team See separate sheet provided for instructions regarding postural drainage. You have been given Hydrocodone/Acetaminophen 5/325 at 10:15am. Your next dose can be taken at 4:15pm. Discharge Follow Up Instructions: Provide discharge instructions for ESWL procedure Follow Up Instructions: Schedule follow up with KUB Follow Up Instructions: F/U 2 weeks Follow-Up Appointments Follow Up with JOMAR JENKINS MD When Within 2 weeks Comments Follow up appointment is scheduled at the [place] location for 05/28/21 at 1:45pm. Please arrive to this appointment at least 20 minutes early for scheduled KUB X-Ray. Where: [address] [place] [address]- Medications What How Much When Instructions Next Dose cyclobenzaprine (Flexeril) 5 Milligram(s) Oral Two Times A Day as needed for Facet Joint Syndrome busPIRone (BuSpar) 7.5 Milligram(s) Oral Two Times A Day ethinyl estradiol-norethindrone (Junel 1.5/ 30 oral tablet) 1 Tablet(s) Oral Every Day fluticasone nasal (Flonase) 1 [place](s) Nostrils Both Every Day as needed for Allergies glycopyrrolate (glycopyrrolate 1 mg oral tablet) 1 Tablet(s) Oral Three Times A Day 2 tabs in AM 1 tab in PM levocetirizine (Xyzal 5 mg oral tablet) 1 Tablet(s) Oral Every Evening lisinopril (lisinopril 20 mg oral tablet) 1 Tablet(s) Oral Every Day meloxicam (meloxicam 7.5 mg oral tablet) 1 Tablet(s) Oral Every Day metFORMIN (metFORMIN 750 mg oral tablet, extended release) 2 Tablet(s) Oral At Bedtime multivitamin 1 tablet Oral Every Day pantoprazole (Protonix 40 mg oral delayed release tablet) 1 Tablet(s) Oral Every Day sertraline (Zoloft 50 mg oral tablet) 1 Tablet(s) Oral At Bedtime topiramate (Topamax 100 mg oral tablet) 1.5 Tablet(s) Oral Every Day zafirlukast (Accolate 20 mg [...] and medications per pharmacy guidance. Education Materials Outpatient Surgery, Adult, Care After These instructions [...] and water are not available, use hand plant assigner. ? Change your dressing as told by [...] or a bad smell. Medicines ??? Take xcoi-omr-bfpvlnb and prescription medicines only as told by [...] provider. Document Revised: 02/12/2019 Document Reviewed: 03/06/2017 [employer] Patient Education ?? 2020 [employer] General Anesthesia, Adult, Care After This sheet [...] activities are safe for you. ??? Take moyi-wcw-xeksimd and prescription medicines only as told by [...] provider. Document Revised: 11/17/2018 Document Reviewed: 06/30/2018 [employer] Patient Education ?? 2020 [employer]. Lithotripsy, Care After This sheet gives you [...] these instructions at home: Medicines ??? Take czbj-wdd-rwqwbdb and prescription medicines only as told by [...] provider. Document Revised: 02/25/2020 Document Reviewed: 10/05/2017 [employer] Patient Education ?? 2020 [employer] Emergency Awareness and Preventative Care STROKE is [...] Assistance with quitting is available by contacting 8-367-SZEN-NOW. This is a free resource providing counseling, [...] This Visit (last charted value for your 05/15/2021 visit) Microbiology 05/13/2021 11:18 AM SARS-CoV-2 (COVID19 PCR): Negative General Chemistry 05/15/2021 7:18 AM Glucose POC2: 78 mg/dL -- Normal range between ( 70 and 110 ) Device Comment 1: Notified MD GALLO Diagnostic Radiology 05/15/2021 6:40 AM CR Abdomen 1 Vw: CR Abdomen 1 Vw Patient Name:CELINE DC I have received this information and was given the opportunity to ask questions. Patient/Degreaser Operator Name: Patient/Degreaser Operator Signature: Relationship to Patient: Clinician/Hospital Degreaser Operator Signature: Date: Electronically signed by [facility], [facility] Conversion Jelly Filter Tender Cerner at 03/13/2023 7:03 PM CDT documented in this encounter Plan of Treatment Not on file documented as of this encounter Visit Diagnoses Not on filedocumented in this encounter Care Teams Laundry Tub Maker Relationship Specialty Start Date End Date Tyrell Magana MD [address] [place] [address] PCP - General Family Medicine 11/15/23 documented as of this encounter
--- OUTSIDE RECORDS SUMMARY | 2025-05-09 13:55 | XMS_ITS | Encounter Summary ---
Author Organization [employer] Address [address] [place] [address] Care Team Providers Care Meat Scrubber Name Role Phone Tyrell Magana MD Primary Care Provider +1- [phone] Encounter Details Date Type Department Care Team (Late st Contact Info) Description 10/10/2019 Transcribed Document [facility] [place] [address] [place] [address] ProviderBen MD [address] [place] [id number] 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 Tobacco Use Types Packs/Day Years [...] Conversion Note - Ben ProviderMD - 10/10/2019 1:20 PM INFANT CHILDCARE PROVIDER DATE OF PROCEDURE: 10/10/2019 SURGEON: Lincoln Dey MD PREOPERATIVE DIAGNOSIS: Left ureteral stone. POSTOPERATIVE DIAGNOSIS: Left ureteral stone with stone manipulation to the renal pelvis. PROCEDURES PERFORMED: 1. Cystourethroscopy. 2. Left ureteral stent placement. 3. Left ureteral stone manipulation. 4. Left extracorporeal shock wave lithotripsy. ANESTHESIA: General. BLOOD LOSS: None. COMPLICATIONS: None. SPECIMENS: None. OPERATIVE FINDINGS: 1. A 6-Malaysian x 24 cm stent placed with good coil seen proximally and distally. 2. Stone with manipulation back to the renal pelvis for better ESWL. 3. Good fragmentation by fluoroscopy after completion of ESWL. DESCRIPTION OF PROCEDURE: The patient was correctly identified in the preoperative holding area. Informed consent was obtained after the risks and benefits were reviewed with the patient. She was taken to the procedure room, positioned in supine position. Anesthesia was induced. She was repositioned to the lithotomy position. All pressure points were padded. Proper time-out procedure was completed. Preoperative antibiotics had been given. The genitourinary area was prepped and draped in normal sterile fashion. Rigid cystoscopy was performed. No foreign bodies, masses, or lesions were noted within the urinary bladder. The left ureteral orifice was identified and cannulated with a wire. The stone was visualized within the mid to proximal ureter. A 6-Malaysian x 24 cm ureteral stent was used to manipulate the stone and reposition the stone within the renal pelvis. The stent had good curl proximally and distally by fluoroscopy and cystoscopy respectively. The patient's bladder was drained. The string of the stent was secured to the patient's inner thigh using Tegaderm. Lidocaine jelly was instilled for local analgesia. The patient was then repositioned on the operative table to position the stone within the lithotripter focus using biplanar fluoroscopy. Escalating voltage from 18 to 24 kV was used throughout the case. A total of 2400 shocks were administered throughout the case. Continuous fluoroscopy was used to visualize the stone. There was good fragmentation of the stone by fluoroscopy at the conclusion of the procedure. DISPOSITION: The patient was awoken from anesthesia and taken to the recovery room in stable condition. She was discharged home with instruction for outpatient followup and KUB. /[id number] MD GERHARD Garcia/FLOWER / GERHARD / CATYL /[id number] Electronically signed by Segundo, [facility] Conversion Home Appliance Technician Cerner at 03/13/2023 7:06 PM CDT documented in this encounter Plan of Treatment Not on file documented as of this encounter Visit Diagnoses Not on filedocumented in this encounter Care Teams Meat Scrubber Relationship Specialty Start Date End Date Tyrell Magana MD [address] [place] [address] PCP - General Family Medicine 11/15/23 documented as of this encounter
--- OUTSIDE RECORDS SUMMARY | 2025-05-09 13:55 | XMS_ITS | Encounter Summary ---
Author Organization [employer] Address [address] [place] [address] Care Team Providers Care Shift Boss Name Role Phone Tyrell Magana MD Primary Care Provider +1- [phone] Encounter Details Date Type Department Care Team (Late st Contact Info) Description 10/10/2019 Transcribed Document [facility] [place] [place] [address] [place] [address] ProviderBen MD [address] [place], [place] [id number] 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 Tobacco Use Types Packs/Day Years [...] Conversion Note - Ben ProviderMD - 10/10/2019 11:38 AM MOSS PICKER Patient: CELINE DC Age: 34 years Sex: Female : 1985 Associated Diagnoses: None Author: SIMIN STILES APRN Chief Complaint L renal stone Review of Systems ROS reviewed as documented in chart no change since last seen by surgeon Health Status Allergies: Allergic Reactions (Selected) Severity Not Documented Penicillin- Anaphylactic reaction., Allergies (1) Active Reaction penicillin Anaphylactic reaction Current medications: (Selected) Inpatient Medications Ordered Lactated Ringers Injection intravenous solution 1,000 mL: 20 mL/Hr, IntraVENous Levaquin: 500 mg, 100 mL, 100 mL/Hr, IV Piggyback, 1-Time Normal Saline Flush: 10 mL, IV Push, On-CALL, PRN: Other (See Comment) Normal Saline Flush: 10 mL, IV Push, Q12H lidocaine 1% injectable solution: 0.5 mL, IntraDermal, 1-Time, PRN: Other (See Comment) Documented Medications Documented Accolate 20 mg oral tablet: 1 Tab, Oral, BID, 0 Refill(s) Childrens Flonase 50 mcg/inh nasal spray: 1 [place], Nasal, Daily, 0 Refill(s) Cymbalta 60 mg oral delayed release capsule: Cap, Oral, Daily, 0 Refill(s) Cymbalta: 60 mg, Oral, Daily, 0 Refill(s) Taytulla 1 mg-20 mcg oral capsule: Cap, Oral, Daily, 0 Refill(s) Topamax 100 mg oral tablet: 1/2 Tab, Oral, Daily, 0 Refill(s) Xyzal 5 mg oral tablet: Tab, Oral, QPM, 0 Refill(s) glycopyrrolate: 1 mg, Oral, At Bedtime, 0 Refill(s) lisinopril: 10 mg, Oral, Daily, 0 Refill(s) multivitamin: 1 tablet, Oral, Daily, 0 Refill(s), Home Medications (10) Active Accolate 20 mg oral tablet 20 mg = 1 Tab, Oral, BID Childrens Flonase 50 mcg/inh nasal spray 1 [place], Nasal, Daily Cymbalta 60 mg, Oral, Daily Cymbalta 60 mg oral delayed release capsule , Oral, Daily glycopyrrolate 1 mg, Oral, At Bedtime lisinopril 10 mg, Oral, Daily multivitamin 1 tablet, Oral, Daily Taytulla 1 mg-20 mcg oral capsule , Oral, Daily Topamax 100 mg oral tablet 1/2 Tab, Oral, Daily Xyzal 5 mg oral tablet , Oral, QPM , Medications (5) Active Scheduled: (2) #NaCl 0.9% *FLUSH* inj 10 mL 10 mL, IV Push, Q12H levofloxacin/D5w *PREMIX* 500 mg 100 mL, IV Piggyback, 1-Time Continuous: (1) lactated ringers 1,000 mL 1,000 mL, IntraVENous, 20 mL/Hr PRN: (2) #NaCl 0.9% *FLUSH* inj 10 mL 10 mL, IV Push, On-CALL lidocaine 1% *PF* inj 2 mL 0.5 mL, IntraDermal, 1-Time Problem list: All Problems Urinary tract infection / SNOMED CT 052852982 / Confirmed Sinusitis / SNOMED CT 88896435 / Confirmed Renal calculus / SNOMED CT 689460833 / Confirmed Migraine / SNOMED CT 59435871 / Confirmed Insulin resistance / SNOMED CT 9169665207 / Confirmed High blood pressure / SNOMED CT 73867082 / Confirmed Facet joint syndrome / SNOMED CT 456788289 / Confirmed DDD (degenerative disc disease), lumbosacral / SNOMED CT 876602770 / Confirmed At risk for sleep apnea / IMO 22418405 / Confirmed, Active Problems (9) At risk for sleep apnea DDD (degenerative disc disease), lumbosacral Facet joint syndrome High blood pressure Insulin resistance Migraine Renal calculus Sinusitis Urinary tract infection Histories Past 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: No active or resolved past medical history items have been selected or recorded. Family History: No family history items have been selected or recorded. Procedure history: kidney stone removal x2. sinus surgery x2. wisdom tooth removal. bladder sling. 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 Social & Psychosocial Habits Alcohol 06/02/2017 Alcohol Use Comment rarely Substance Abuse 10/09/2019 Recreational Drug Use History No Recreational Drug Use Last 12 Months No Tobacco 10/09/2019 Smoking Status Never (less than 100 in l . Physical Examination VS/Measurements Vital Signs/Vital Measures 10/10/2019 11:00 EST Systolic Blood Pressure 119 mmHg Diastolic Blood Pressure 74 mmHg Temperature Source Temporal artery scanning Temperature Mode Fahrenheit Heart Rate Monitored 88 bpm Respiratory Rate 20 Breaths/Min Oxygen Saturation 96 % Oxygen Therapy Mode Room air , Vitals Signs (last 24 hrs) Last Charted Minimum Maximum Mon HR 88 (OCT 10 11:00) 88 (OCT 10 11:00) 88 (OCT 10 11:00) Resp Rate 20 (NOV 13 11:00) 20 (OCT 10:) 20 (OCT 10:) SBP 119 (OCT 10:) 119 (OCT 10:) 119 (OCT 10:) DBP 74 (OCT 10:) 74 (OCT 10 11:00) 74 (OCT 10 11:00) SpO2 96 (OCT 10:) 96 (OCT 10:) 96 (OCT 10:) , Measurements from flowsheet : Measurements 10/09/2019 18:09 EST Height Source Measured Height Entry Format [place] Height/Length SAMMARINESE 67 Inch CLINICALHEIGHT 170.18 cm [place] Body Weight 61 kg Weight Source Standing scale Weight Entry Format [place] Weight Sudanese lb 223 lb CLINICALWEIGHT 101.36 kg Body Surface Area (BSA) 2.12 m2 Body Mass Index 35 kg/m2 HI General: Alert and oriented, No acute distress, obese. Eye: Pupils are equal, round and reactive to light, Extraocular movements are intact, glasses. HENT: Normocephalic, Normal hearing. Neck: Supple, Non-tender. Respiratory: Lungs are clear to auscultation, Respirations are non-labored. Cardiovascular: Normal rate, Regular rhythm, No murmur, No gallop, No edema. Gastrointestinal: Soft, Non-tender. Genitourinary: No costovertebral angle tenderness. Lymphatics: No lymphadenopathy neck, axilla, groin. Musculoskeletal: Normal range of motion, Normal strength. Integumentary: Warm, Dry, [place]. Neurologic: Alert, Oriented. Psychiatric: Cooperative, Appropriate mood & affect. Review / Management Results review: No qualifying data available, Lab results 10/10/2019 11:18 EST Device Comment 1 Device Comment 1 Glucose POC2 75 mg/dL . Impression and Plan Condition: Stable. documented in this encounter Plan of Treatment Not on file documented as of this encounter Visit Diagnoses Not on filedocumented in this encounter Care Teams Shift Boss Relationship Specialty Start Date End Date Tyrell Magana MD [address] [place] [address] PCP - General Family Medicine 11/15/23 documented as of this encounter
--- OUTSIDE RECORDS SUMMARY | 2025-05-09 13:55 | XMS_ITS | Encounter Summary ---
Author Organization [facility] Address [address] [place] [address] Care Team Providers Care Camp Maintenance Supervisor Name Role Phone Dustin Gomez MD Primary Care Provider Unavailabl e Doctor, Vicki Primary Care Provider Unavailabl e Encounter Details Date Type Department Care Team (Late st Contact Info) Description 08/14/2007 Historical Encounter Global Leann Bond MD [address] [facility] [address] [place] [address] 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 Tobacco Use Types Packs/Day Years [...] on filedocumented in this encounter Care Teams Camp Maintenance Supervisor Relationship Specialty Start Date End Date Dustin Gomez MD PCP - General 08/02/08 02/11/14 Vicki Villavicencio [place] PCP - General Family Medicine 02/12/14 12/30/17 documented as of this encounter
--- OUTSIDE RECORDS SUMMARY | 2025-05-09 13:55 | XMS_ITS | Encounter Summary ---
Author Organization [employer] Address [address] [place] [address] Care Team Providers Care High School History Teacher Name Role Phone Tyrell Magana MD Primary Care Provider +1- [phone] Encounter Details Date Type Department Care Team (Late st Contact Info) Description 10/10/2019 Transcribed Document [facility] [place] [address] [place] [address] ProviderBen MD [address] [place], [place] [address] 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 Tobacco Use Types Packs/Day Years [...] - Ben ProviderMD - 10/10/2019 12:22 PM FACILITIES PLANNER [facility] Main OR PACU Summary Primary Physician: JOMAR JENKINS MD Finalized Date/Time: 10/10/19 14:18:09 Pt. Name: CELINE DC /Sex: 1985 Female Med Rec #: [id number] Physician: JOMAR JENKINS MD Financial #: [id number] Pt. Type: O Room/Bed: /1 Admit/Disch: 10/10/19 09:16:00 - Institution: [facility] Main OR PACU I Case Times Entry 1 In PACU I 10/10/19 13:39:00 Ready for PACU 10/10/19 14:00:00 Discharge Discharge from PACU 10/10/19 14:20:00 I Last Modified By: Aisha Bone RN 10/10/19 14:17:55 [facility] Main OR PACU Acuity Entry 1 Start Time 10/10/19 14:00:00 Stop Time 10/10/19 14:20:00 Acuity Level [facility] PACU Acuity I Last Modified By: Aisha Bone RN 10/10/19 14:18:05 Finalized By: Aisha Bone RN Document Signatures Signed By: Aisha Bone RN 10/10/19 14:18 Electronically signed by [facility] Conversion Resource Paraprofessional Cerner at 03/13/2023 7:13 PM CDT documented in this encounter Plan of Treatment Not on file documented as of this encounter Visit Diagnoses Not on filedocumented in this encounter Care Teams High School History Teacher Relationship Specialty Start Date End Date Tyrell Magana MD [address] [place] [address] PCP - General Family Medicine 11/15/23 documented as of this encounter
--- OUTSIDE RECORDS SUMMARY | 2025-05-09 13:56 | XMS_ITS | Encounter Summary ---
Author Organization [employer] iatives Address [address] [place] [address] Care Team Providers Care Sheet Folder Name Role Phone Tyrell Magana MD Primary Care Provider [phone]- [phone] Encounter Details Date Type Department Care Team (Late st Contact Info) Description 05/15/2021 Transcribed Document [facility] [place] [address] [place] [address] ProviderBen MD [address] [place], [place] [address] 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 Tobacco Use Types Packs/Day Years Used Date Smoking Tobacco: Never Assessed Comments Unknown Sex and Gender Information Value Date Recorded Sex Assigned at Female 2022 8:07 PM CDT Legal Sex Female 8:07 PM CDT Gender Identity Female 2022 8:07 PM CDT Sexual Orientation Not on file documented as of this encounter Miscellaneous Notes * Cerner Conversion Note - Historical ProviderMD - 05/15/2021 7:20 AM CDT Patient: CELINE DC Age: 35 years Sex: Female : 1985 Associated Diagnoses: None Author: SIMIN STILES MANAGER TECHNICAL SALES Chief Complaint R renal stone Review of Systems ROS reviewed as documented in chart no change since last seen by surgeon Health Status Allergies: Allergic Reactions (Selected) Severity Not Documented Keflex- Vomiting and syncope. Penicillin- Anaphylactic reaction., Allergies (2) Active Reaction Keflex Vomiting penicillin Anaphylactic reaction Current medications: (Selected) Inpatient Medications Ordered Lactated Ringers Injection intravenous solution 1,000 mL: 20 mL/Hr, IntraVENous Levaquin: 500 mg, 100 mL, 100 mL/Hr, IV Piggyback, 1-Time Levaquin: 500 mg, 100 mL, 100 mL/Hr, IV Piggyback, 1-Time Normal Saline Flush: 10 mL, IV Push, On-CALL, PRN: Other (See Comment) Normal Saline Flush: 10 mL, IV Push, Q12H Documented Medications Documented Accolate 20 mg oral tablet: 1 Tab, Oral, BID, 0 Refill(s) BuSpar: 7.5 mg, Oral, BID, 0 Refill(s) Flexeril: 5 mg, Oral, BID, PRN: Facet Joint Syndrome, 0 Refill(s) Flonase: 1 [place], Nostrils Both, Daily, PRN: Allergies, 0 Refill(s) Junel 1.5/30 oral tablet: 1 Tab, Oral, Daily, 0 Refill(s) Protonix 40 mg oral delayed release tablet: 1 Tab, Oral, Daily, 30 Tab, 0 Refill(s) Topamax 100 mg oral tablet: 1.5 Tab, Oral, Daily, 0 Refill(s) Xyzal 5 mg oral tablet: 1 Tab, Oral, QPM, 0 Refill(s) Zoloft 50 mg oral tablet: 1 Tab, Oral, At Bedtime, 0 Refill(s) glycopyrrolate 1 mg oral tablet: 1 Tab, Oral, TID, 2 tabs in AM 1 tab in PM, 0 Refill(s) lisinopril 20 mg oral tablet: 1 Tab, Oral, Daily, 30 Tab, 0 Refill(s) meloxicam 7.5 mg oral tablet: 1 Tab, Oral, Daily, 0 Refill(s) metFORMIN 750 mg oral tablet, extended release: 2 Tab, Oral, At Bedtime, 0 Refill(s) multivitamin: 1 tablet, Oral, Daily, 0 Refill(s), Home Medications (14) Active Accolate 20 mg oral tablet 20 mg = 1 Tab, Oral, BID BuSpar 7.5 mg, Oral, BID Flexeril 5 mg, PRN, Oral, BID Flonase 1 [place], PRN, Nostrils Both, Daily glycopyrrolate 1 mg oral tablet 1 mg = 1 Tab, Oral, TID Junel 1.5/30 oral tablet 1 Tab, Oral, Daily lisinopril 20 mg oral tablet 20 mg = 1 Tab, Oral, Daily meloxicam 7.5 mg oral tablet 7.5 mg = 1 Tab, Oral, Daily metFORMIN 750 mg oral tablet, extended release 1,500 mg = 2 Tab, Oral, At Bedtime multivitamin 1 tablet, Oral, Daily Protonix 40 mg oral delayed release tablet 40 mg = 1 Tab, Oral, Daily Topamax 100 mg oral tablet 150 mg = 1.5 Tab, Oral, Daily Xyzal 5 mg oral tablet 5 mg = 1 Tab, Oral, QPM Zoloft 50 mg oral tablet 50 mg = 1 Tab, Oral, At Bedtime , Medications (5) Active Scheduled: (3) #NaCl 0.9% *FLUSH* inj 10 mL 10 mL, IV Push, Q12H levofloxacin/D5w *PREMIX* 500 mg 100 mL, IV Piggyback, 1-Time levofloxacin/D5w *PREMIX* 500 mg 100 mL, IV Piggyback, 1-Time Continuous: (1) lactated ringers 1,000 mL 1,000 mL, IntraVENous, 20 mL/Hr PRN: (1) #NaCl 0.9% *FLUSH* inj 10 mL 10 mL, IV Push, On-CALL Problem list: All Problems Urinary tract infection / SNOMED CT 084095503 / Confirmed Sinusitis / SNOMED CT 06955474 / Confirmed Renal calculus / SNOMED CT 774181822 / Confirmed Migraine / SNOMED CT 19245940 / Confirmed Kidney stone / SNOMED CT 404391748 / Confirmed Insulin resistance / SNOMED CT 4537836592 / Confirmed High blood pressure / SNOMED CT 96187933 / Confirmed Facet joint syndrome / SNOMED CT 905145309 / Confirmed DDD (degenerative disc disease), lumbosacral / SNOMED CT 047112913 / Confirmed At risk for sleep apnea / IMO 15148093 / Confirmed, Active Problems (10) At risk for sleep apnea DDD (degenerative disc disease), lumbosacral Facet joint syndrome High blood pressure Insulin resistance Kidney stone Migraine Renal calculus Sinusitis Urinary tract infection Histories Past 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: No active or resolved past medical history items have been selected or recorded. Family History: No family history items have been selected or recorded. Procedure history: Cystourethroscopy, with ureteroscopy and%2For pyeloscopy; with lithotripsy including insertion of indwelling ureteral stent (eg, Mccormick or double-J type) (64096) on 10/10/2019 at 34 Years. kidney stone removal x5. sinus surgery x2. wisdom tooth removal. bladder sling. 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 Social & Psychosocial Habits Alcohol 05/14/2021 Alcohol Use History, Social Habits Yes Alcohol Use in Last Twelve Months Yes Alcohol Use Comment couple times a year Substance Abuse 10/09/2019 Recreational Drug Use History No Recreational Drug Use Last 12 Months No Tobacco 10/09/2019 Smoking Status Never (less than 100 in l . Physical Examination VS/Measurements Vital Signs/Vital Measures 05/15/2021 7:00 EDT Systolic Blood Pressure 128 mmHg Diastolic Blood Pressure 73 mmHg Temperature Source Temporal artery scanning Temperature Mode Fahrenheit Temperature, Fahrenheit 97.8 Deg F Heart Rate Monitored 78 bpm Respiratory Rate 16 Breaths/Min Oxygen Saturation 100 % Oxygen Therapy Mode Room air , Vitals Signs (last 24 hrs) Last Charted Minimum Maximum Temp 97.8 (MAY 15 07:00) 97.8 (MAY 15 07:00) 97.8 (MAY 15 07:00) Mon HR 78 (MAY 15 07:00) 78 (MAY 15 07:00) 78 (MAY 15 07:00) Resp Rate 16 (MAY 15 07:00) 16 (MAY 15 07:00) 16 (MAY 15 07:00) SBP 128 (MAY 15 07:00) 128 (MAY 15 07:00) 128 (MAY 15 07:00) DBP 73 (MAY 15 07:00) 73 (MAY 15 07:00) 73 (MAY 15 07:00) SpO2 100 (MAY 15 07:00) 100 (MAY 15 07:00) 100 (MAY 15 07:00) , Measurements from flowsheet : Measurements 05/14/2021 17:20 EDT Height Source Measured Height Entry Format [place] Height/Length, VIET[place]ESE (ft) 0 ft Height/Length VIET[place]ESE 66 Inch CLINICALHEIGHT 167.64 cm [place] Body Weight 59 kg Weight Source Standing scale Weight Entry Format [place] Weight Yemeni lb 229 lb Weight Yemeni oz 8 oz CLINICALWEIGHT 104.32 kg Body Surface Area (BSA) 2.12 m2 Body Mass Index 37.1 kg/m2 HI General: Alert and oriented, No acute distress, obese. Eye: Pupils are equal, round and reactive to light, Extraocular movements are intact, glasses. HENT: Normocephalic, Normal hearing. Neck: Supple, Non-tender. Respiratory: Lungs are clear to auscultation, Respirations are non-labored. Cardiovascular: Normal rate, Regular rhythm, No murmur, No edema. Gastrointestinal: Soft, Non-tender. Genitourinary: No costovertebral angle tenderness. Lymphatics: No lymphadenopathy neck, axilla, groin. Musculoskeletal: Normal range of motion, Normal strength. Integumentary: Warm, Dry, [place]. Neurologic: Alert, Oriented. Psychiatric: Cooperative, Appropriate mood & affect. Review / Management Results review: No qualifying data available, Lab results 05/15/2021 7:18 EDT Device Comment 1 Notified MD GALLO Glucose POC2 78 mg/dL . Impression and Plan Condition: Stable. documented in this encounter Plan of Treatment Not on file documented as of this encounter Visit Diagnoses Not on filedocumented in this encounter Care Teams Sheet Folder Relationship Specialty Start Date End Date Tyrell Magana MD [address] [place] [address] PCP - General Family Medicine 11/15/23 documented as of this encounter
--- OUTSIDE RECORDS SUMMARY | 2025-05-09 13:56 | XMS_ITS | Clinical Summary ---
Author Organization [employer]atives Address [address] [place] [address] Care Team Providers Care Economics Faculty Member Name Role Phone Tyrell Magana MD Primary Care Provider +1- [phone] Allergies Active Allergy Reactions Criticality Noted Date [...] 23 Active norethindrone- ethinyl estradiol-iron (Junel FE .5/30, 28,) 1.5 mg-30 mcg (21)/75 mg (7) per tablet 10/29/20 Active pantoprazole (PROTONIX) 40 MG tablet Take 1 tablet (40 mg total) by mouth daily. Active potassium citrate (Urocit-K 15) 15 mEq TbER 10/29/20 Active propranoloL (Inderal LA) 60 MG 24 hr capsule 03/24/20 Active rOPINIRole (REQUIP) 0.25 MG tabletIndicati ons:restless [...] (obstructive sleep apnea) GERD (gastroesophageal reflux disease) Encounters Date Type Department Care Team Description 05/06/2025 12:59 PM EDT Anesthesia Event [facility] Surgery Department [address] [place] [address] Chery Gill CRNA Booker, Philip Craig, MD 05/06/2025 12:00 PM EDT - 05/06/2025 1:52 PM EDT Surgery [facility] Surgery Department [address] [place] [address] Justice Miller MD Diagnostic LAPAROSCOPY, ENDOMETRIAL ABLATION 05/06/2025 9:19 AM EDT - 05/06/2025 3:19 PM EDT Hospital Encounter [facility] Surgery Department [address] [place] [address] Justice Miller MD Excessive or frequent menstruation; Encounter for gynecological examination with abnormal finding; Excessive, frequent and irregular menstruation; Secondary dysmenorrhea Discharge Disposition: Home or Self Care 05/06/2025 Travel 04/30/2025 3:54 PM EDT - 04/30/2025 11:59 PM EDT Hospital Encounter [facility] Diagnostic Imaging [address] [place] [address] Justice Miller MD Discharge Disposition: Home or Self Care 04/30/2025 2:38 PM EDT - 04/30/2025 3:53 PM EDT Hospital Encounter [facility] Preadmission Testing [address] [facility] [address] [place] [address] Justice Miller MD Pre-op testing (Primary Dx); RLS (restless legs syndrome) Discharge Disposition: Home or Self Care 04/30/2025 Travel from Last 3 Months 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 Tobacco Use Types Packs/Day Years [...] Date Surinder rded Speak language other than Tajik at home Not on file 12/16/2023 Want [...] 04/30/2025 2:50 PM EDT Plan of Treatment Health Maintenance Due Date Last Done Comments Diabetic Kidney Health Evalu ation (KED) 1985 Diabetic Eye Exam 1994 Diabetic foot exam 1994 Depression Screening (12+) 1996 HIV Screening 1999 Hepatitis C Screening 2002 Pneumococcal Vaccine: 0-49 Y ears (1 of 2 - PCV) 2003 Lipid Panel 2004 Pap Smear 2005 DTAP/TDAP/TD VACCINES (2 - T d or Tdap) 08/14/2008 08/14/1998 Breast Cancer Screening 2024 COVID-19 VACCINE (5 - 2023-2 5 season) 2024 06/22/2022, 10/20/2021, 01/16/2021, Additional history exists Hemoglobin A1C 05/06/2025 Influenza Vaccine (Season Ended) 2025 08/28/20 Tobacco Cessation Counseling and Screening (12+) 05/06/2026 05/06/2025 Procedures Procedure Name Priority Date/Time Associated Diagnosis Comments NOVA GLUCOSE POC Routine 05/06/2025 2:12 PM EDT TISSUE EXAM [facility] AP Routine 05/06/2025 1:43 PM EDT Excessive or frequent menstruation Encounter for gynecological examination with abnormal finding Excessive, frequent and irregular menstruation Secondary dysmenorrhea ANESTHESIA INTUBATION Routine 05/06/2025 1:06 PM EDT UT HYSTEROSCOPY ENDOMETRIAL ABLATION 05/06/2025 12:58 PM EDT Excessive or frequent menstruation Encounter for gynecological examination with abnormal finding Excessive, frequent and irregular menstruation Secondary dysmenorrhea Case Notes This case needs to be Robotic per TEJAS Love UT LAPS ABD PRTM&OMENTUM DX W/WO SPEC BR/WA [...] Glucose, Nova Meter (05/06/2025 2:12 PM EDT) [facility] POC-GLUCOSE 104 70 - 110 mg/dL 05/06/2025 2:13 PM EDT [facility] Comment: In the event of poor peripheral blood flow, venous or arterial blood should be used due to the potential of erroneous results. No action Require Orchestra Musician [id number] 05/06/2025 2:13 PM EDT [facility] Blood WHOLE BLOOD / Unknown 05/06/2025 2:12 PM EDT 05/06/2025 2:13 PM EDT Narrative [facility] - 05/06/2025 2:13 PM EDT Orchestra Musician ID is - [id number] Justice Miller MD POINT OF CARE TEST ORDERABLES Final Result [facility] [address] [place] [address], [facility] [phone] * Tissue Exam (05/06/2025 1:43 PM EDT) [facility] AP RESULT See Note: [facility] Comment: [facility] [address] [place] [address] or [phone] Heath Pruett M.D., Paint Line Supervisor PATIENT NAME LABORATORY NO. [address] CELINE DC. [id number] AGE SEX SSN CLIENT REF # [facility] 39 1985 F [id number] [address] REQUESTING Gustavo [place] [address] JUSTICE MILLER DATE COLLECTED DATE RECEIVED DATE [...] rendered by Ailyn Siddiqui M.D., F.C.A.P. at [employer], [address] [place] [address]. GROSS DESCRIPTION: Labeled endometrial curettings consists of multiple pieces of rocha-brown soft tissue measuring 3.0 x 2.5 x 0.6 cm in aggregate. Specimens are filtered and submitted entirely in 3 blocks. BKO REVIEWED, DIAGNOSED AND ELECTRONICALLY SIGNED BY: Ailyn Siddiqui M.D., F.C.A.P. CPT CODES: [id number] Tissue SPECIMEN FROM ENDOMETRIUM OBTAINED BY CURETTAGE / Unknown 05/06/2025 1:43 PM EDT Justice Miller MD PATHOLOGY/CYTOLOGY ORDERABLES Final Result [facility] [address] [place] [address] * AN SINGLE LUMEN INTUBATION (05/06/2025 1:06 [...] 1 Number of other approaches attempted: 0 [facility] ANESTHESIA ORDERABLES Final Result * EKG-SCANNED (05/06/2025) Narrative 05/06/2025 Ordered by an unspecified provider. Default Scanning Provider SCAN ORDERS Final Result * X-ray chest PA and lateral (04/30/2025 4:00 PM EDT) Anatomical Region Laterality Modality Chest X-Ray 04/30/2025 5:32 PM EDT Impressions 04/30/2025 5:34 PM EDT Unremarkable two-view chest. Images reviewed, interpreted, dictated and electronically signed by Nithin Matamoros MD Voice miniature set constructor technology (Power Scribe) is used for the dictation of this note and sound-alike words might be erroneously placed despite reviewing this note for accuracy. Errors in dictation may reflect use of voice recognition software and not all errors in miniature set constructor may have been detected prior to signing. [...] electronically signed by Nithin Matamoros MD Voice miniature set constructor technology (Power Scribe) is used for the dictation of this note and sound-alike words might be erroneously placed despite reviewing this note for accuracy. Errors in dictation may reflect use of voice recognition software and not all errors in miniature set constructor may have been detected prior to signing. Justice Miller MD IMG DIAGNOSTIC IMAGING ORDERA BLES Final Result * Screen, urine (04/30/2025 3:08 PM EDT) Preg Test, Ur Negative Negative, Inconclusive 04/30/2025 3:26 PM EDT [facility] Urine 04/30/2025 3:08 PM EDT 04/30/2025 3:08 PM EDT Justice Miller MD URINE ORDERABLES Final Result [facility] [address] [place] [address] * CBC with automated diff (04/30/2025 3:07 PM EDT) WBC 9.2 3.9 - 10.0 K/ L 04/30/2025 3:22 PM EDT [facility] RBC 4.59 3.93 - 5.22 M/ L 04/30/2025 3:22 PM EDT [facility] Hemoglobin 13.7 11.2 - 15.7 GM/DL 04/30/2025 3:22 PM EDT [facility] Hematocrit 41.8 34.1 - 44.9 % 04/30/2025 3:22 PM EDT [facility] MCV 91 79 - 95 fL 04/30/2025 3:22 PM EDT [facility] MCH 29.8 25.6 - 32.2 pg 04/30/2025 3:22 PM EDT [facility] MCHC 32.8 32.2 - 36.5 GM/DL 04/30/2025 3:22 PM EDT [facility] RDW 14.3 11.6 - 14.4 % 04/30/2025 3:22 PM EDT [facility] Platelets 345 163 - 369 K/CU MM 04/30/2025 3:22 PM EDT [facility] MPV 9.4 9.4 - 12.4 fL 04/30/2025 3:22 PM EDT [facility] % Neutros 52 34 - 71 % 04/30/2025 3:22 PM EDT [facility] % Lymphs 37 19 - 53 % 04/30/2025 3:22 PM EDT [facility] % Monos 8 4 - 13 % 04/30/2025 3:22 PM EDT [facility] % Eos 2 1 - 7 % 04/30/2025 3:22 PM EDT [facility] % Baso 0 0 - 1 % 04/30/2025 3:22 PM EDT [facility] # Neutros 4.80 1.56 - 6.13 K/ L 04/30/2025 3:22 PM EDT [facility] # Lymphs 3.39 1.18 - 3.74 K/ L 04/30/2025 3:22 PM EDT [facility] # Monos 0.71 0.24 - 0.82 K/ L 04/30/2025 3:22 PM EDT [facility] # Eos 0.20 0.04 - 0.54 K/ L 04/30/2025 3:22 PM EDT [facility] # Baso 0.04 0.01 - 0.08 K/ L 04/30/2025 3:22 PM EDT [facility] Immature Granulocytes-Re lative 0.40 0.00 - 0.60 % 04/30/2025 3:22 PM EDT [facility] # IG 0.04 0.00 - 0.05 K/uL 04/30/2025 3:22 PM EDT [facility] Blood Venipuncture / Unknown 04/30/2025 3:07 PM EDT 04/30/2025 3:07 PM EDT Narrative [facility] - 04/30/2025 3:22 PM EDT [...] Blast? Flag noted Atypical Lymph flag noted Justice Miller MD LAB BLOOD ORDERABLES Final Re sult [facility] [address] [employer] [address] [phone] * (ABNORMAL) Comprehensive metabolic panel (04/30/2025 3:07 PM EDT) Sodium 138 136 - 146 meq/L 04/30/2025 3:32 PM EDT [facility] Potassium 3.9 3.5 - 5.1 meq/L 04/30/2025 3:32 PM EDT [facility] Chloride 102 102 - 112 meq/L 04/30/2025 3:32 PM EDT [facility] CO2 28 21 - 32 meq/L 04/30/2025 3:32 PM EDT [facility] Calcium 9.6 8.5 - 10.1 mg/dL 04/30/2025 3:32 PM EDT [facility] Glucose 105 74 - 106 mg/dL 04/30/2025 3:32 PM EDT [facility] BUN 11 7 - 22 mg/dL 04/30/2025 3:32 PM EDT [facility] Creatinine 0.85 0.55 - 1.02 mg/dL 04/30/2025 3:32 PM EDT [facility] BUN/Creatinine 13 8 - 20 04/30/2025 3:32 PM EDT [facility] Albumin 3.5 3.4 - 5.0 g/dL 04/30/2025 3:32 PM EDT [facility] Alkaline Phosphatase 50 27 - 136 U/L 04/30/2025 3:32 PM EDT [facility] ALT 54 12 - 78 U/L 04/30/2025 3:32 PM EDT [facility] AST 46(H) 5 - 37 U/L 04/30/2025 3:32 PM EDT [facility] Total Bilirubin 0.2 0.2 - 1.3 mg/dL 04/30/2025 3:32 PM EDT [facility] Protein, Total 7.0 6.4 - 8.2 gm/dL 04/30/2025 3:32 PM EDT [facility] Anion Gap 12 9 - 20 04/30/2025 3:32 PM EDT [facility] A/G Ratio 1.0(L) 1.1 - 2.5 04/30/2025 3:32 PM EDT [facility] Globulin 3.5 1.5 - 4.5 g/dL 04/30/2025 3:32 PM EDT [facility] Osmolality Calc 275.4 mOsm/kg 3:32 PM EDT [facility] eGFR (mL/min/1.73m2) >60 >=60 mL/min/1.7 3m2 04/30/2025 3:32 PM EDT [facility] Comment:ESTIMATED GFR IS NOT ACCURATE CREATININE CLEARANCE IN PREDICTING GLOMERULAR FILTRATION RATE. ESTIMATED GFR IS NOT APPLICABLE FOR DIALYSIS PATIENTS. Blood Venipuncture / Unknown 04/30/2025 3:07 PM EDT 04/30/2025 3:07 PM EDT Justice Miller MD LAB BLOOD ORDERABLES Final Re sult [facility] [address] [place] [address], [facility] [phone] * ECG 12 lead (04/30/2025 1:59 PM EDT) VENTRICULAR RATE EKG/MIN 82 BPM GE MUSE ATRIAL RATE (MCT) 82 BPM GE MUSE UT Interval 170 ms GE MUSE QRS-INTERVAL (MSEC) 92 ms GE MUSE QT Interval 354 ms GE MUSE QTC Interval 413 ms GE MUSE P [place] 55 degrees GE MUSE R AXIS (MCT) 69 degrees GE MUSE T Wave [place] 65 degrees GE MUSE [place] Diagnosis Normal sinus rhythm Normal ECG Confirmed by Gustavo FITZGERALD SUZANNE ([id number]) on 04/30/2025 4:57:51 PM GE MUSE 04/30/2025 1:59 PM EDT 04/30/2025 4:57 PM EDT us Justice Miller MD ECG ORDERABLES Final Result GE MUSE from Last 3 Months Insurance BLUE CROSS/BLUE SHIELD Advance Directives For more information, please contact: [phone] * Full Code (Latest Code Status on File) Date Activated Date Inactivated Comments 11/17/2023 11:34 AM 11/17/2023 6:14 PM Care Teams Economics Faculty Member Relationship Specialty Start Date End Date Tyrell Magana MD [address] [place] [address] PCP - General Family Medicine 11/15/23
--- OUTSIDE RECORDS SUMMARY | 2025-05-09 13:56 | XMS_ITS | Encounter Summary ---
Author Organization [employer] Address [address] [place] [address] Care Team Providers Care Cut Off Machine Helper Name Role Phone Tyrell Magana MD Primary Care Provider +1- [phone] Encounter Details Date Type Department Care Team (Late st Contact Info) Description 05/15/2021 Transcribed Document [facility] Family Medicine [address] [place] [address] ProviderBen MD [address] [place], [place] [address] 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 Tobacco Use Types Packs/Day Years [...] Ben ProviderMD - 05/15/2021 7:56 AM CDT [facility] Main OR PostOp Summary Primary Physician: JOMAR JENKINS MD Finalized Date/Time: 05/15/21 10:50:17 Pt. Name: CELINE DC D.O.B./Sex: 1985 Female Med Rec #: [id number] Physician: JOMAR JENKINS MD Financial #: [id number] Pt. Type: O Room/Bed: /11 Admit/Disch: 05/15/21 06:21:00 - Institution: [facility] Main OR PostOp Case Times Entry 1 In PACU II 05/15/21 09:25:00 Ready for PACU II 05/15/21 10:33:00 Discharge Discharge from PACU 05/15/21 10:33:00 II Last Modified By: ENIO DOS SANTOS RN 05/15/21 10:50:13 Finalized By: ENIO DOS SANTOS RN Document Signatures Signed By: ENIO DOS SANTOS RN 05/15/21 10:50 Electronically signed by [facility] Conversion Floorwalker Cerner at 03/13/2023 7:20 PM CDT documented in this encounter Plan of Treatment Not on file documented as of this encounter Visit Diagnoses Not on filedocumented in this encounter Care Teams Cut Off Machine Helper Relationship Specialty Start Date End Date Tyrell Magana MD [address] [place] [address] PCP - General Family Medicine 11/15/23 documented as of this encounter
--- OUTSIDE RECORDS SUMMARY | 2025-05-09 13:56 | XMS_ITS | Encounter Summary ---
Author Organization [employer] Address [address] [place] [address] Care Team Providers Care Rubber Trimmer Name Role Phone Tyrell Magana MD Primary Care Provider +1- [phone] Encounter Details Date Type Department Care Team (Late st Contact Info) Description 05/15/2021 Transcribed Document [facility] [place] [address] [place] [address] ProviderBen MD [address] [place], [place] [address] 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 Tobacco Use Types Packs/Day Years [...] Ben ProviderMD - 05/15/2021 7:56 AM CDT [facility] Main OR PACU Summary Primary Physician: JOMAR JENKINS MD Finalized Date/Time: 05/15/21 09:30:35 Pt. Name: CELINE DC D.O.B./Sex: 1985 Female Med Rec #: [id number] Physician: JOMAR JENKINS MD Financial #: [id number] Pt. Type: O Room/Bed: Admit/Disch: 05/15/21 06:21:00 - Institution: [facility] Main OR PACU I Case Times Entry 1 In PACU I 05/15/21 08:50:00 Ready for PACU 05/15/21 09:22:00 Discharge Discharge from PACU 05/15/21 09:22:00 I Last Modified By: Anjelica Cueto RN 05/15/21 09:29:46 Finalized By: Anjelica Cueto RN Document Signatures Signed By: Anjelica Cueto RN 05/15/21 09:30 Electronically signed by [facility] Conversion Child And Family Services Worker Cerner at 03/13/2023 7:21 PM CDT documented in this encounter Plan of Treatment Not on file documented as of this encounter Visit Diagnoses Not on filedocumented in this encounter Care Teams Rubber Trimmer Relationship Specialty Start Date End Date Tyrell Magana MD [address] [place] [address] PCP - General Family Medicine 11/15/23 documented as of this encounter
== END 2025-05-09 23:59 | disposition home or self-care (01) ==
LOC: RAD 12:53
PROVIDERS: PCP Nurse Practitioner Family; Visit Provider Nurse Practitioner Family
DX: E04.2 Nontoxic multinodular goiter (principal)
CPT/HCPCS: 76536

== ENCOUNTER 2025-06-07 10:24 | Outpatient (CLI) | payer BC, SELFPAY ==
--- OUTSIDE RECORDS SUMMARY | 2025-04-30 14:38 | XMS_ITS | Encounter Summary ---
Author Organization [employer] ([place], [place], [place], [place]) Address [address] [place] [address] Care Team Providers Care Top Lift Trimmer Name Role Phone Tyrell Magana MD Primary Care Provider [phone]- [phone] Encounter Details Date Type Department Care Team (Latest Contact Info) Description 04/30/2025 2:38 PM EDT - 04/30/2025 3:53 PM EDT Hospital Encounter [facility] Preadmission Testing [address] [facility] [address] [place] [address] Dandy Duque MD [address] [facility] [address] [place] [address] Pre-op testing (Primary Dx); RLS (restless legs [...] Date Surinder rded Speak language other than Pashto at home Not on file 12/16/2023 Want [...] daily. glycopyrrolate (RobinuL) 1 mg tablet 10/29/2023 hydroCHLOROthiaz humera (MICROZIDE) 12.5 mg capsule Take 1 capsule (12.5 mg total) by mouth daily. levocetirizine (Xyzal) 5 MG tablet 10/29/2023 lisinopriL (PRINIVIL,ZESTRI L) 10 MG tablet Take 1 tablet (10 mg total) by mouth 3 (three) times daily. 10/29/2023 meloxicam (MOBIC) 7.5 MG tablet TAKE 1 TABLET BY MOUTH EVERY DAY FOR ARTHRITIS 10/29/2023 metFORMIN (GLUCOPHAGE) 500 MG tablet Missing or Non-Formulary Medication PROBIOTIC. multivit with calcium,iron,min (MULTIVITAMIN-CA LCIUM AND IRON ORAL) 10/29/2023 norethindrone-et hinyl estradiol-iron (Junel FE 1.5/30, 28,) 1.5 mg-30 mcg (21)/75 mg (7) per tablet 10/29/2023 pantoprazole (PROTONIX) 40 MG tablet Take 1 tablet (40 mg total) by mouth daily. potassium citrate (Urocit-K 15) 15 mEq TbER 10/29/2023 propranoloL (Inderal LA) 60 MG 24 hr capsule 03/24/2023 rOPINIRole (REQUIP) 0.25 MG tabletIndication s:restless leg syndrome Take 4 tablets (1 mg total) by mouth daily. 10/29/2023 zafirlukast (Accolate) 20 MG tablet 10/29/2023 b complex vitamins tablet Take 1 tablet by mouth daily. 5 cyclobenzaprine (FLEXERIL) 5 MG tablet Take 1 tablet (5 mg total) by mouth 2 (two) times daily. 10/29/2023 5 nitrofurantoin, macrocrystal-mon ohydrate, (MACROBID) 100 MG capsule Take 1 capsule (100 mg total) by mouth 2 (two) times daily. 14 capsule 11/17/2023 5 phentermine (Adipex-P) 37.5 mg tablet 10/29/2023 5 sertraline (ZOLOFT) 50 MG tablet [...] BILATERAL ESWL; Surgeon: Hira Rider MD; Location: [facility]; Service: Urology; Laterality: Bilateral; ESWL CONF #: [id number] SPOKE TO ARUN SINUS SURGERY X 2 [...] 14 capsule 0 norethindrone-ethinyl estradiol-iron (Junel FE 1.5, ,) 1.5 mg-30 mcg (21)/75 mg (7) [...] 354 ms QTC Interval 413 ms P Anderson 55 degrees R AXIS (MCT) 69 degrees T Wave Anderson 65 degrees [place] Diagnosis Normal sinus rhythm Normal ECG Confirmed [...] electronically signed by Nithin Matamoros MD Voice kiss mixer technology ([employer]) is used for the dictation of this note and sound-alike words might be erroneously placed despite reviewing this note for accuracy. Errors in dictation may reflect use of voice recognition software and not all errors in kiss mixer may have been detected prior to signing. [...] documented in this encounter Plan of Treatment Upcoming Encounters Date Type Department Care Team (Latest Contact Info) Description 06/12/2025 12:02 PM EDT Hospital Encounter [facility] Operating Room [address] [place] [address] Vaibhav Chester MD [address] [place] [address] 06/12/2025 12:02 PM EDT - 06/12/2025 1:49 PM EDT Surgery [facility] Operating Room [address] [place] [address] Vaibhav Chester MD [address] [place] [address] (LEFT HIP ARTHROSCOPIC BURSECTOMY, POSSIBLE ABDUCTOR REPAIR) Scheduled Procedures Name Priority Associated Diagnoses Date/Ti me BURSECTOMY, HIP Trochanteric bursitis, left hip 06/12/2025 12:02 PM EDT documented as of this encounter Procedures Procedure [...] electronically signed by Nithin Matamoros MD Voice kiss mixer technology (Power Scribe) is used for the dictation of this note and sound-alike words might be erroneously placed despite reviewing this note for accuracy. Errors in dictation may reflect use of voice recognition software and not all errors in kiss mixer may have been detected prior to signing. [...] electronically signed by Nithin Matamoros MD Voice kiss mixer technology (Power Scribe) is used for the dictation of this note and sound-alike words might be erroneously placed despite reviewing this note for accuracy. Errors in dictation may reflect use of voice recognition software and not all errors in kiss mixer may have been detected prior to signing. us Dandy Duque MD IMG DIAGNOSTIC IMAGING ORDERA BLES Final Result * Screen, urine (04/30/2025 3:08 PM EDT) Pathologist [facility] Preg Test, Ur Negative Negative, Inconclusive 04/30/2025 3:26 PM EDT [facility] Urine 04/30/2025 3:08 PM EDT 04/30/2025 3:08 PM EDT us Dandy Duque MD URINE ORDERABLES Final Result [facility] [address] [phone] * (ABNORMAL) Comprehensive metabolic panel (04/30/2025 3:07 PM EDT) [facility] Sodium 138 136 - 146 meq/L 04/30/2025 3:32 PM EDT [facility] Potassium 3.9 3.5 - 5.1 meq/L 04/30/2025 3:32 PM EDT [facility] Chloride 102 102 - 112 meq/L 04/30/2025 3:32 PM EDT [facility] CO2 28 21 - 32 meq/L 04/30/2025 3:32 PM EDT [facility] Calcium 9.6 8.5 - 10.1 mg/dL 04/30/2025 3:32 PM EDT [facility] Glucose 105 74 - 106 mg/dL 04/30/2025 3:32 PM EDT [facility] BUN 11 7 - 22 mg/dL 04/30/2025 3:32 PM T [facility] Creatinine 0.85 0.55 - 1.02 mg/dL 04/30/2025 3:32 PM EDT [facility] BUN/Creatinine 13 8 - 20 04/30/2025 3:32 PM EDT [facility] Albumin 3.5 3.4 - 5.0 g/dL 04/30/2025 3:32 PM EDT [facility] Alkaline Phosphatase 50 27 - 136 U/L 04/30/2025 3:32 PM EDT [facility] ALT 54 12 - 78 U/L 04/30/2025 3:32 PM EDT [facility] AST 46(H) 5 - 37 U/L 04/30/2025 3:32 PM EDT [facility] Total Bilirubin 0.2 0.2 - 1.3 mg/dL 04/30/2025 3:32 PM EDT [facility] Protein, Total 7.0 6.4 - 8.2 gm/dL 04/30/2025 3:32 PM EDT [facility] Anion Gap 12 9 - 20 04/30/2025 3:32 PM EDT [facility] A/G Ratio 1.0(L) 1.1 - 2.5 04/30/2025 3:32 PM EDT [facility] Globulin 3.5 1.5 - 4.5 g/dL 04/30/2025 3:32 PM EDT [facility] Osmolality Calc 275.4 mOsm/kg 3:32 PM EDT [facility] eGFR (mL/min/1.73m2) >60 >=60 mL/min/1.7 3m2 04/30/2025 3:32 PM EDT [facility] Comment:ESTIMATED GFR IS NOT ACCURATE CREATININE CLEARANCE IN PREDICTING GLOMERULAR FILTRATION RATE. ESTIMATED GFR IS NOT APPLICABLE FOR DIALYSIS PATIENTS. Blood Venipuncture / Unknown 04/30/2025 3:07 PM EDT 04/30/2025 3:07 PM EDT Dandy Duque MD LAB BLOOD ORDERABLES Final Re sult [facility] [address] [phone] * CBC with automated diff (04/30/2025 3:07 PM EDT) WBC 9.2 3.9 - 10.0 K/ L 04/30/2025 3:22 PM EDT [facility] RBC 4.59 3.93 - 5.22 M/ L 04/30/2025 3:22 PM EDT [facility] Hemoglobin 13.7 11.2 - 15.7 GM/DL 04/30/2025 3:22 PM EDT [facility] Hematocrit 41.8 34.1 - 44.9 % 04/30/2025 3:22 PM EDT [facility] MCV 91 79 - 95 fL 04/30/2025 3:22 PM EDT [facility] MCH 29.8 25.6 - 32.2 pg 04/30/2025 3:22 PM EDT [facility] MCHC 32.8 32.2 - 36.5 GM/DL 04/30/2025 3:22 PM EDT [facility] RDW 14.3 11.6 - 14.4 % 04/30/2025 3:22 PM EDT [facility] Platelets 345 163 - 369 K/CU MM 04/30/2025 3:22 PM EDT [facility] MPV 9.4 9.4 - 12.4 fL 04/30/2025 3:22 PM EDT [facility] % Neutros 52 34 - 71 % 04/30/2025 3:22 PM EDT [facility] % Lymphs 37 19 - 53 % 04/30/2025 3:22 PM EDT [facility] % Monos 8 4 - 13 % 04/30/2025 3:22 PM EDT [facility] % Eos 2 1 - 7 % 04/30/2025 3:22 PM EDT [facility] % Baso 0 0 - 1 % 04/30/2025 3:22 PM EDT [facility] # Neutros 4.80 1.56 - 6.13 K/ L 04/30/2025 3:22 PM EDT [facility] # Lymphs 3.39 1.18 - 3.74 K/ L 04/30/2025 3:22 PM EDT [facility] # Monos 0.71 0.24 - 0.82 K/ L 04/30/2025 3:22 PM EDT [facility] # Eos 0.20 0.04 - 0.54 K/ L 04/30/2025 3:22 PM EDT [facility] # Baso 0.04 0.01 - 0.08 K/ L 04/30/2025 3:22 PM EDT [facility] Immature Granulocytes-Re lative 0.40 0.00 - 0.60 % 04/30/2025 3:22 PM EDT [facility] # IG 0.04 0.00 - 0.05 K/uL 04/30/2025 3:22 PM EDT [facility] Blood Venipuncture / Unknown 04/30/2025 3:07 PM EDT 04/30/2025 3:07 PM EDT [facility] - 04/30/2025 3:22 PM EDT When [...] MD LAB BLOOD ORDERABLES Final Re sult [facility] [address] [place] [address], [facility] [phone] * ECG 12 lead (04/30/2025 1:59 PM EDT) VENTRICULAR RATE EKG/MIN 82 BPM GE MUSE ATRIAL RATE (MCT) 82 BPM GE MUSE NC Interval 170 ms GE MUSE QRS-INTERVAL (MSEC) 92 ms GE MUSE QT Interval 354 ms GE MUSE QTC Interval 413 ms GE MUSE P Anderson 55 degrees GE MUSE R AXIS (MCT) 69 degrees GE MUSE T Wave Anderson 65 degrees GE MUSE [place] Diagnosis Normal sinus rhythm Normal ECG Confirmed by Gustavo FITZGERALD SUZANNE ([id number]) on 04/30/2025 4:57:51 PM GE MUSE 04/30/2025 1:59 PM EDT 04/30/2025 4:57 PM EDT Dandy Duque MD ECG ORDERABLES Final Result Performing Organization Address City/[facility]/ZIP Co de Phone Number GE MUSE documented in this encounter Visit [...] (restless legs syndrome) Restless legs syndrome (RLS) Trochanteric bursitis, left hip documented in this encounter Care Teams Top Lift Trimmer Relationship Specialty Start Date End Date Tyrell Magana MD [address] [place] [address] PCP - General Family Medicine 11/15/23 documented as of this encounter
--- OUTSIDE RECORDS SUMMARY | 2025-05-06 09:19 | XMS_ITS | Encounter Summary ---
Author Organization [employer] ([place], [place], [place], [place]) Address [address] [place] [address] Care Team Providers Care Cook Boat Name Role Phone Tyrell Magana MD Primary Care Provider [phone]- [phone] Reason for Visit * Auth/Cert (Routine) Specialty Diagnoses / Procedures Referred By Bao bautista Referred To Contact Diagnoses Excessive or frequent menstruation Encounter for gynecological examination with abnormal finding Excessive, frequent and irregular menstruation Secondary dysmenorrhea N92.0 Z01.411 N92.1 N94.5 Procedures [place] HYSTEROSCOPY ENDOMETRIAL ABLATION [place] LAPS FULG/EXC OVARY VISCERA/PERITONEAL SURFACE ROBOTIC LAPAROSCOPY,RESECTION ENDOMETRIAL ABLATION, ENDOMETRIUM Justice Miller MD 170 [facility] [address] [place] [address] Phone: tel: fax: Referral ID Status Reason Start Date Expiration Date Visits Re quested Visits Authorized [id number] 03/14/2025 1 1 Encounter Details Date Type Department Care Team (Latest Contact Info) Description 05/06/2025 9:19 AM EDT - 05/06/2025 3:19 PM EDT Hospital Encounter [facility] Surgery Department [address] [place] [address] [place] Miller MD 170 [facility] [address] [place] [address] Excessive or frequent menstruation; Encounter for gynecological [...] Date Surinder rded Speak language other than Bahamian at home Not on file 12/16/2023 Want [...] Everywhere. * General Anesthesia Adult Care After (Bahamian) * Diagnostic Laparoscopy Care After (Bahamian) * Endometrial Ablation Care After (Bahamian) documented in this encounter Medications at Time [...] 10/29/2023 zafirlukast (Accolate) 20 MG tablet 10/29/2023 documented as of this encounter [...] wave (eswl) (Bilateral, 11/17/2023); Kidney stone surgery; [place] tooth extraction; Sinus surgery; Colon surgery; and [...] ATRIAL RATE (MCT) 04/30/2025 82 BPM Final [place] Interval 04/30/2025 170 ms Final QRS-INTERVAL (MSEC) 04/30/2025 92 ms Final QT Interval 04/30/2025 354 ms Final QTC Interval 04/30/2025 413 ms Final P [place] 04/30/2025 55 degrees Final R AXIS (MCT) 04/30/2025 69 degrees Final T Wave [place] 04/30/2025 65 degrees Final [place] Diagnosis 04/30/2025 Final Value:Normal sinus rhythm Normal [...] electronically signed by Nithin Matamoros MD Voice slab inspector technology (Power QBInternationalibe) is used for the dictation of this note and sound-alike words might be erroneously placed despite reviewing this note for accuracy. Errors in dictation may reflect use of voice recognition software and not all errors in slab inspector may have been detected prior to [...] endometriosis. Hysteroscopy, D and C, endometrial ablation. BAR GAUGER AND LUBRICATOR TENDER: Caesar Becker. ESTIMATED BLOOD LOSS: Minimal. COMPLICATIONS: [...] endometrial ablation system was used following the postmaster relief's recommendations. The uterine cavity was tested before [...] available for care 24 hours a day. /[id number] MD HOUSTON Dey/FLOWER DENSON: 05/06/2025 14:15:25 / GV / AQS /[id number] documented in this encounter Plan of Treatment Upcoming Encounters Date Type Department Care Team (Latest Contact Info) Description 06/12/2025 12:02 PM EDT Hospital Encounter [facility] Operating Room [address] [place] [address] Vaibhav Chester MD [address] [place] [phone] 06/12/2025 12:02 PM EDT - 06/12/2025 1:49 PM EDT Surgery [facility] Operating Room [address] [place] [address] Vaibhav Chester MD [address] [place] [phone] (LEFT HIP ARTHROSCOPIC BURSECTOMY, POSSIBLE ABDUCTOR REPAIR) Scheduled Procedures Name Priority Associated Diagnoses Date/Ti me BURSECTOMY, HIP Trochanteric bursitis, left hip 06/12/2025 12:02 PM EDT documented as of this encounter Procedures Procedure Name Priority Date/Time Associated Diagnosis Comments NOVA GLUCOSE POC Routine 05/06/2025 2:12 PM EDT TISSUE EXAM [facility] AP Routine 05/06/2025 1:43 PM EDT Excessive or frequent menstruation Encounter for gynecological examination with abnormal finding Excessive, frequent and irregular menstruation Secondary dysmenorrhea VA HYSTEROSCOPY ENDOMETRIAL ABLATION 05/06/2025 12:58 PM EDT Excessive or frequent menstruation Encounter for gynecological examination with abnormal finding Excessive, frequent and irregular menstruation Secondary dysmenorrhea Case Notes This case needs to be Robotic per Dr. Miller, TEJAS [place] LAPS ABD PRTM&OMENTUM DX W/WO SPEC BR/WA [...] - 110 mg/dL 05/06/2025 2:13 PM EDT [facility] Comment: In the event of poor peripheral blood flow, venous or arterial blood should be used due to the potential of erroneous results. No action Require [place] Supervisor [id number] 05/06/2025 2:13 PM EDT [facility] Blood WHOLE BLOOD / Unknown 05/06/2025 2:12 PM EDT 05/06/2025 2:13 PM EDT Narrative [facility] - 05/06/2025 2:13 PM EDT [place] Supervisor ID is - [id number] [place] Miller MD POINT OF CARE TEST ORDERABLES Final Result [facility] [address] [phone] * Tissue Exam (05/06/2025 1:43 PM EDT) AP RESULT See Note: [facility] Comment: [facility] [address] [place] [address] or [phone] Heath Pruett M.D., Ad Copy Writer PATIENT NAME LABORATORY NO. CELINE BAUTISTA. [id number] AGE SEX SSN CLIENT REF # [facility] 39 1985 F [id number] 150 [facility] REQUESTING [place]ING [place] [address] JUSTICE MILLER DATE COLLECTED DATE RECEIVED DATE REPORTED 05/06/2025 05/06/202505/0705/07/2025 DIAGNOSIS: ENDOMETRIUM, CURETTINGS: Benign endometrium exhibiting changes [...] Professional interpretation rendered by Ailyn Siddiqui M.D., Liyah at [facility], [address] [place] [address]. GROSS DESCRIPTION: Labeled endometrial curettings consists of multiple pieces of rocha-brown soft tissue measuring 3.0 x 2.5 x 0.6 cm in aggregate. Specimens are filtered and submitted entirely in 3 blocks. BKO REVIEWED, DIAGNOSED AND ELECTRONICALLY SIGNED BY: Ailyn Siddiqui M.D., F.C.A.P. CPT CODES: [id number] Tissue SPECIMEN FROM ENDOMETRIUM OBTAINED BY CURETTAGE / Unknown 05/06/2025 1:43 PM EDT [place] Miller MD PATHOLOGY/CYTOLOGY ORDERABLES Final Result Performing Organization Address City/State/[facility] Co de Phone Number [facility] [address] [place] [address] * EKG-SCANNED (05/06/2025) Narrative 05/06/2025 Ordered by [...] mention of complication, not stated as uncontrolled Trochanteric bursitis, left hip documented in this encounter Administered Medications Inactive Administered Medications - up to 3 most recent administrations Medication Order MAR Action Action Date Dose Rate Site electrolyte-R (NORMOSOL-R) infusion intravenous, Continuous, Starting on 05/06/25 at 1000, Pre-op New Bag 05/06/2025 1:34 [...] MD) documented in this encounter Care Teams Cook Boat Relationship Specialty Start Date End Date Tyrell Magana MD [address] [place] [address] [place] [address] PCP - General Family Medicine 11/15/23 documented as of this encounter
--- OUTSIDE RECORDS SUMMARY | 2025-05-06 12:00 | XMS_ITS | Encounter Summary ---
Author Organization [facility] ([place], [place], [place], [place]) Address [address] [place] [address] Care Team Providers Care Dumping Machine Operator Name Role Phone Tyrell Magana MD Primary Care Provider +1- [phone] Reason for Visit * Auth/Cert (Routine) Specialty Diagnoses / Procedures Referred By Bao bautista Referred To Contact Diagnoses Excessive or frequent menstruation Encounter for gynecological examination with abnormal finding Excessive, frequent and irregular menstruation Secondary dysmenorrhea N92.0 Z01.411 N92.1 N94.5 Procedures [place] HYSTEROSCOPY ENDOMETRIAL ABLATION [place] LAPS FULG/EXC OVARY VISCERA/PERITONEAL SURFACE ROBOTIC LAPAROSCOPY,RESECTION ENDOMETRIAL ABLATION, ENDOMETRIUM Justice Miller MD [address] [facility] [address] [place] [address] Phone: tel: fax: Referral ID Status Reason Start Date Expiration Date Visits Re quested Visits Authorized [id number] 03/14/2025 1 1 Encounter Details Date Type Department Care Team (Late st Contact Info) Description 05/06/2025 12:00 PM EDT - 05/06/2025 1:52 PM EDT Surgery [facility] Surgery Department [address] [place] [address] Justice Miller MD [address] [facility] [address] [place] [address] Diagnostic LAPAROSCOPY, ENDOMETRIAL ABLATION 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 Tobacco [...] Date Surinder rded Speak language other than Romansh at home Not on file 12/16/2023 Want [...] Everywhere. * General Anesthesia Adult Care After (Romansh) * Diagnostic Laparoscopy Care After (Romansh) * Endometrial Ablation Care After (Romansh) documented in this encounter Medications at Time [...] ORAL) 10/29/2023 norethindrone-et hinyl estradiol-iron (Junel FE 1.5, ,) 1.5 mg-30 [...] wave (eswl) (Bilateral, 11/17/2023); Kidney stone surgery; [place] tooth extraction; Sinus surgery; Colon surgery; and [...] ATRIAL RATE (MCT) 04/30/2025 82 BPM Final [place] Interval 04/30/2025 170 ms Final QRS-INTERVAL (MSEC) 04/30/2025 92 ms Final QT Interval 04/30/2025 354 ms Final QTC Interval 04/30/2025 413 ms Final P [place] 04/30/2025 55 degrees Final R AXIS (MCT) 04/30/2025 69 degrees Final T Wave [place] 04/30/2025 65 degrees Final [place] Diagnosis 04/30/2025 Final Value:Normal sinus rhythm Normal [...] electronically signed by Nithin Matamoros MD Voice oil and gas recruiter technology (Power [employer]-Ev[employer] Industriesibe) is used for the dictation of this note and sound-alike words might be erroneously placed despite reviewing this note for accuracy. Errors in dictation may reflect use of voice recognition software and not all errors in oil and gas recruiter may have been detected prior to signing. Assessment & Plan AUB Pelvic pain Dysmenorrhea Bmi Laparoscopy Hsc d/c endometrial ablation Electronically signed by: Jutsice Miller MD, 05/06/2025 at 12:52 PM documented in this encounter OR Notes * Op Note - Justice Miller MD - 05/06/2025 2:53 PM EDT DATE OF PROCEDURE: 05/06/2025 PREOPERATIVE DIAGNOSES: Menorrhagia, pelvic pain. PROCEDURES PERFORMED: Laparoscopic-assisted laparoscopy with diagnosis of minimal endometriosis. Hysteroscopy, D and C, endometrial ablation. OFFICE SERVICES ASSISTANT: Caesar Becker. ESTIMATED BLOOD LOSS: Minimal. COMPLICATIONS: [...] endometrial ablation system was used following the bridge attacher's recommendations. The uterine cavity was tested before [...] available for care 24 hours a day. /[id number] MD HOUSTON Dey/AQ / HOUSTON / AQS /[id number] documented in this encounter Plan of Treatment Upcoming Encounters Date Type Department Care Team (Latest Contact Info) Description 06/12/2025 12:02 PM EDT Hospital Encounter [facility] Operating Room [address] [place] [address] Vaibhav Chester MD [address] [place] [address] 06/12/2025 12:02 PM EDT - 06/12/2025 1:49 PM EDT Surgery [facility] Operating Room [address] [place] [address] Vaibhav Chester MD [address] [place] [phone] (LEFT HIP ARTHROSCOPIC BURSECTOMY, POSSIBLE ABDUCTOR REPAIR) Scheduled Procedures Name Priority Associated Diagnoses Date/Ti me BURSECTOMY, HIP Trochanteric bursitis, left hip 06/12/2025 12:02 PM EDT documented as of this encounter Procedures Procedure Name Priority Date/Time Associated Diagnosis Comments NOVA GLUCOSE POC Routine 05/06/2025 2:12 PM EDT TISSUE EXAM [facility] AP Routine 05/06/2025 1:43 PM EDT Excessive or frequent menstruation Encounter for gynecological examination with abnormal finding Excessive, frequent and irregular menstruation Secondary dysmenorrhea [place] HYSTEROSCOPY ENDOMETRIAL ABLATION 05/06/2025 12:58 PM EDT Excessive or frequent menstruation Encounter for gynecological examination with abnormal finding Excessive, frequent and irregular menstruation Secondary dysmenorrhea Case Notes This case needs to be Robotic per TEJAS Love [place] LAPS ABD PRTM&OMENTUM DX W/WO SPEC BR/WA SPX 05/06/2025 12:58 PM EDT Excessive or frequent menstruation Encounter for gynecological examination with abnormal finding Excessive, frequent and irregular menstruation Secondary dysmenorrhea Case Notes This case needs to be Robotic per Dr. Miller, ADRIANASURE EKG-SCANNED 05/06/2025 documented in this encounter Results * Glucose, Nova Meter (05/06/2025 2:12 PM EDT) POC-GLUCOSE 104 70 - 110 mg/dL 05/06/2025 2:13 PM EDT [facility] Comment: In the event of poor peripheral blood flow, venous or arterial blood should be used due to the potential of erroneous results. No action Require Manager Of Health [id number] 05/06/2025 2:13 PM EDT [facility] Blood WHOLE BLOOD / Unknown 05/06/2025 2:12 PM EDT 05/06/2025 2:13 PM EDT Narrative [facility] - 05/06/2025 2:13 PM EDT Manager Of Health ID is - [id number] Justice Miller MD POINT OF CARE TEST ORDERABLES Final Result [facility] [address] [phone] * Tissue Exam (05/06/2025 1:43 PM EDT) Pathologist [facility] AP RESULT See Note: [facility] Comment: [facility] [address] [place] [address] or [phone] Heath Pruett M.D., Stenographer Print Shop PATIENT NAME LABORATORY NO. [id number] CELINE MARKS. [id number] AGE SEX SSN CLIENT REF # [facility] 39 1985 F [id number] [address] REQUESTING Gustavo [place] [address] JUSTICE MILLER DATE COLLECTED DATE RECEIVED DATE [...] Professional interpretation rendered by Ailyn Siddiqui M.D., Sandrine.C.AMorris at [employer] [facility], [address] [place] [address]. GROSS DESCRIPTION: Labeled endometrial curettings consists of multiple pieces of rocha-brown soft tissue measuring 3.0 x 2.5 x 0.6 cm in aggregate. Specimens are filtered and submitted entirely in 3 blocks. BKO REVIEWED, DIAGNOSED AND ELECTRONICALLY SIGNED BY: Ailyn Siddiqui M.D., F.C.A.P. CPT CODES: [id number] Tissue SPECIMEN FROM ENDOMETRIUM OBTAINED BY CURETTAGE / Unknown 05/06/2025 1:43 PM EDT Justice Miller MD PATHOLOGY/CYTOLOGY ORDERABLES Final Result [facility] [address] [place] [address] * EKG-SCANNED (05/06/2025) Narrative 05/06/2025 Ordered by [...] Excessive or frequent menstruation Secondary dysmenorrhea Dysmenorrhea Trochanteric bursitis, left hip documented in this [...] irrigation solution (CANCELED) As needed, Starting on 05/06/25 at 1332, Intra-op 1332 (Given - Provid er: Justice Miller MD) documented in this encounter Care Teams Dumping Machine Operator Relationship Specialty Start Date End Date Tyrell Magana MD [address] [place] [address] [place] [address] PCP - General Family Medicine 11/15/23 documented as of this encounter
--- OUTSIDE RECORDS SUMMARY | 2025-05-06 12:59 | XMS_ITS | Encounter Summary ---
Author Organization [employer] ([place], [place], [place], [place]) Address [address] [place] [address] Care Team Providers Care Receivables Specialist Name Role Phone Tyrell Magana MD Primary Care Provider [phone]- [phone] Reason for Visit * Auth/Cert (Routine) Specialty Diagnoses / Procedures Referred By Bao t Referred To Contact Diagnoses Excessive or frequent menstruation Encounter for gynecological examination with abnormal finding Excessive, frequent and irregular menstruation Secondary dysmenorrhea N92.0 Z01.411 N92.1 N94.5 Procedures [place] HYSTEROSCOPY ENDOMETRIAL ABLATION [place] LAPS FULG/EXC OVARY VISCERA/PERITONEAL SURFACE ROBOTIC LAPAROSCOPY,RESECTION ENDOMETRIAL ABLATION, ENDOMETRIUM Dandy Duque MD [address] [facility] [address] [place] [address] Phone: tel: fax: Referral ID Status Reason Start Date Expiration Date Visits Re quested Visits Authorized [id number] 03/14/2025 1 1 Encounter Details Date Type Department Care Team (Late st Contact Info) Description 05/06/2025 12:59 PM EDT Anesthesia Event [facility] Surgery Department [address] [place] [address] Chery Gill CRNA [address] [place] [address] Efren Mcfarland MD [address] [place] [address] Anesthesia Record Procedure Summary Procedure Name Responsible [...] mesh panty 05/06/25 1326 by Roberto Carlos Aviles, LESLIE Peripheral IV Placement Date: 08/22; Placement Time: [...] Date Surinder rded Speak language other than Mosotho at home Not on file 12/16/2023 Want [...] Procedure Summary Date: 05/06/25 Room / Location: [facility] OR [facility] OPERATING ROOM Anesthesia Start: 1259 Anesthesia Stop: [...] ENDOMETRIAL ABLATION Special Equipment ABLATION, ENDOMETRIUM Location: [facility] OR [facility] OPERATING ROOM Surgeons: Dandy Duque MD Relevant [...] discussed with patient who. Plan discussed with MICROSOFT BI ARCHITECT. documented in this encounter Plan of Treatment Upcoming Encounters Date Type Department Care Team (Latest Contact Info) Description 06/12/2025 12:02 PM EDT Hospital Encounter [facility] Operating Room [address] [place] [address] Vaibhav Chester MD [facility] [place] [address] 06/12/2025 12:02 PM EDT - 06/12/2025 1:49 PM EDT Surgery [facility] Operating Room [address] [place] [address] Vaibhav Chester MD [facility] [place] [address] (LEFT HIP ARTHROSCOPIC BURSECTOMY, POSSIBLE ABDUCTOR REPAIR) [...] mg documented in this encounter Care Teams Receivables Specialist Relationship Specialty Start Date End Date Tyrell Magana MD [address] [place] [address] [place] [address] PCP - General Family Medicine 11/15/23 documented as of this encounter
--- OUTSIDE RECORDS SUMMARY | 2025-06-10 10:26 | XMS_ITS | Continuity of Care Document ---
Author Organization [facility],, Main Office Address [address] [place] [address] Assessment No assessment recorded. Plan of Treatment Reminders Order Date Submit Date Provider Last Modified By Organization Details Last Modified Time Details Appointments ESTABLISH ED PATIENT 15 2024 10:00A M JASMINE Lira Not available Not available Not available Lab urinalysi s, dipstick 2024 025 a[address]axon Main Office, [address], [place], [address], 05/18/2025 18:40:38 Referral None recorded. Procedures None recorded. Surgeries None recorded. Imaging None recorded. Medication Orders None recorded. Patient TargetsNo targets recorded. Patient Instructions Encounter Date Encounter Id Patient Instructions Last Modified By Organization Details Last Modified Time 05/16/2025 [id number] Risks of not following up discussed. Questions answered. Potential problems explained with risks [email or web address] Not available 2025 12:37:55 Reason for Referral None Reported. Results Created Date Observation Date Name Description Value Unit Range Abnormal Flag Note LastModifiedBy Organization Detail LastModifiedTime 05/16/2005/16/2025 urina lysis , dipst ick Leukocytes - Not Available Main Of fice [address], [place], [address], 05/16/2025 09:51:34 05/16/2005/16/2025 urina lysis , dipst ick Nitrite negati ve Not Available Main Office [address], [place], [address], 05/16/2025 09:51:34 05/16/20 25 05/16/2025 urina lysis , dipst ick Urobilinogen - Not Available Main Office [address], [place], [address], 05/16/2025 09:51:34 05/16/20 25 05/16/2025 urina lysis , dipst ick Protein - Not Available Main Offic e [address], [place], [address], 05/16/2025 09:51:34 05/16/20 25 05/16/2025 urina lysis , dipst ick pH 6.0 Not Available Main Offic e [address], [place], [address], 05/16/2025 09:51:34 05/16/20 25 05/16/2025 urina lysis , dipst ick Specific [place] 1.005 Not Available Main O ffice [address], [place], [address], 05/16/2025 09:51:34 05/16/20 25 05/16/2025 urina lysis , dipst ick Ketone - Not Available Main Offic e [address], [place], [address], 05/16/2025 09:51:34 05/16/20 25 05/16/2025 urina lysis , dipst ick Bilirubin - Not Available Main Off ice [address], [place], [address], 05/16/2025 09:51:34 Result Notes None recorded. Procedures Surgical History Date Name Laterality Status Provider Name and Address Organization Details Recorded Time robotic assisted surgery completed JASMINE Lira [address], [place], [address], [facility], 05/18/2025 18:38:06 5 Date of Last Pap Smear completed [facility], 03/06/2025 09:53:36 4 Date of Last Mammogram completed [facility], 03/06/2025 10:00:47 Kidney endoscopy completed JASMINE Lira [address], [place], [address], [facility], 01/14/2020 11:20:09 Imaging Results None recorded. Procedure Notes None recorded. Medical Equipment None Reported. Allergies Allergen ID Allergen Name Allergen Category Reaction Reaction Severity Criticality Documentation Date Start Date Code Code System Note Provider Name and Address Organization Details Recorded Time 794 Product containin g penicilli n (product) medicatio n anaphylax is severe Not available 12/12/2017 19064 8001 SNOMED Mitra [facility], 8 11:40:08 Medications Name [...] day by oral route for 10 days. 05/23 completed Not Available Not Available Not Available [...] oral route as needed for 3 days. 05/16 completed Not Available Not Available Not Available ondansetron HCl 8 mg tablet Take 1 tablet twice a day by oral route for 3 days. 05/16 completed Not Available Not Available Not Available [...] Not Available Not Available Not Available lisinopril 40 mg tablet TAKE 1 TABLET BY MOUTH EVERY DAY active Not Available Not Available No t Available ondansetron 4 mg disintegrat ing tablet [...] completed Not Available Not Available Not Available pregabalin 75 mg capsule TAKE 1 CAPSULE BY MOUTH EVERYDAY AT BEDTIME active Not Available Not Available No t Available Accolate 20 active Not Available Not [...] Relief 50 mcg/actuati on nasal spray,suspe nsion [place] 1 spray every day by intranasa l [...] Available Not Available Not Available Flucelvax Quad 3068-0327 (PF) 60 mcg (15 mcg x 4)/0.5 [...] Body weight Heart rate Body temperature Systolic And Diastolic Provider Name and Address Organization Details Last Updated DateTime 5 167.64 cm 44.2 kg/m2 345429. 31 g 93 /min 96.6 [degF] 147/100 mm[Hg] Dave Johnson [facility], 5 09:49:48 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 Question Answer Notes LastModified by Organizat ion Details LastModified Time Tobacco Smoking Status Never Smoker Not Available [employer] 09/23/2020 03:20:23 Able To Swim? Yes Information not available 12/12/2017 Accident Related Injury No Information not available 12/12/2017 Do You Have An Advance Directive? No [id number] Information not available 09/23/2020 How Many Years Have You Consumed Alcohol? 12 [id number] Information not available 09/23/2020 Animal Exposure? Yes Informat ion not available 12/12/2017 Are You Currently Sexually Active With Anyone Who Has Traveled (within The Last 12 Weeks) To A Zika-affected Area? No [id number] Information not available 09/23/2020 Do You Wear A Helmet When Biking? No [id number] Information not available 09/23/2020 Are You Blind Or Do You Have Difficulty Seeing? No [id number] Information not available 09/23/2020 What Is Your Level Of Caffeine Consumption? Occasional [id number] Information not available 09/23/2020 How Much Tobacco Do You Chew? None [id number] Information not available 09/23/2020 Concerns About Meeting Basic Needs (food, Housing, Heat, Etc)? No Information not available 12/12/2017 Are You Deaf Or Do You Have Serious Difficulty Hearing? No [id number] Information not available 09/23/2020 What Type Of Diet Are You Following? REGULAR [id number] Information not available 09/23/2020 Which Illicit Or Recreational Drugs Have You Used? None [id number] Information not available 09/23/2020 Education Post Graduate Information not available 12/12/2017 Family History Of Heart Disease? Yes Information not available 12/12/2017 Have There Been Any Changes To Your Family Or Social Situation? No [id number] Information no t available 09/23/2020 Are There Any Guns Present In Your Home? Yes [id number] Information not available 09/23/2020 Hard Of Hearing Or Deaf In One Or Both Ears? No Information not available 12/12/2017 Legally Blind In One Or Both Eyes? No Information no t available 12/12/2017 Live Alone Or With Others? With Others Information not available 12/12/2017 Do You Have A Medical Power Of Bow Maker Gift Wrapping? No [id number] Information not available 09/23/2020 What Was The Date Of Your Most Recent Tobacco Screening? 12/18/2018 [id number] Information not available 09/23/2020 How Many Children Do You Have? 0 [id number] Information not available 09/23/2020 Performs Monthly Self-breast Exam? No Information no t available 12/12/2017 Do You Have Any Pets? Yes [id number] Information not available 09/23/2020 Difficulty Reading? No Information not available 12/12/2017 Seat Belts Used Routinely Yes Information not available 12/12/2017 Are You Sexually Active? Yes [id number] Information not available 09/23/2020 Smoke Alarm In Home Yes Information not available 12/12/2017 Do You Have Smoke And Carbon Monoxide Detectors In Your Home? Yes [id number] Information not available 09/23/2020 Are You Passively Exposed To Smoke? No Information no t available 12/12/2017 Are There Any Smokers In Your House? No Information not available 12/12/2017 How Much Tobacco Do You Smoke? No [id number] Information not available 09/23/2020 General Stress Level Medium Information not available 12/12/2017 Sun Exposure Occasional Information not available 12/12/2017 Do You Use Sunscreen Routinely? Yes [id number] Information not available 09/23/2020 TB Risk Low Information no t available 12/12/2017 Has Tobacco Cessation Counseling Been Provided? No [id number] Information not available 09/23/2020 Difficulty Watching TV? No Information not available 12/12/2017 Do You Have Difficulty Walking Or Climbing Stairs? No [id number] Information not available 09/23/2020 Sex: Unknown Functional Status Question Answer Note LastModified by Organizat ion Details LastModified Time What is your level of alcohol consumption? Occasional [id number] Information not available 09/23/2020 Are you currently employed? Yes [id number] Information not available 09/23/2020 Do you have transportation difficulties? No [id number] Information not available 09/23/2020 Are you able to walk? YESWOREST [id number] Information not available 09/23/2020 Do you have difficulty doing errands alone? No [id number] Information not available 09/23/2020 Are you able to care for yourself? 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 No [id number] Information not available 09/23/2020 What is your exercise level? Occasional [id number] Information not available 09/23/2020 Mental Status Question Answer Note LastModified by Organization D etails LastModified Time Do you have difficulty concentrating, remembering or making decisions? No [id number] Information no t available 09/23/2020 Family History Relationship Description Onset Age of this Age Resolved Age Notes LastModified by Organization Details LastModified Time Mother Hypertensive disorder [email or web address] Not available 12/12 11:47:55 Mother Diabetes mellitus [email or web address] Not available 12/12 11:48:11 Mother Family history of malignant neoplasm mantle cell lympho ma [email or web address] Not available 09/15/2020 08:26:46 Mother Kidney disease [...] history of malignant neoplasm cervic al cancer [email or web address] Not available 09/15/2020 08:26:46 Sister Headache [place] [...] Age at Menarche 12 Current Control Method Ablation Frequency of Cycle (Q days) Sexually Active? Y Menses Monthly N Date of Last Pap Smear 03/06/2025 Sexual Problems? N LMP Approximate Obstetrics History GPAL:G 0 P 0 0 0 0 Immunizations Vaccine Type Date Status Note Provider Nam e and Address Organization Details Recorded Time Influenza, split virus, quadrivalent, preservative 7 completed Not Available [facility] 12/29/2019 02:17:09 Past Encounters Encounter ID Performer Location Encounter Start Date Encounter Closed Date Diagnosis/Indication Diagnosis SNOMED-CT Code Diagnosis ICD10 Code Diagnosis Note [id number] Dandy Duque DO Main Office [address] [place] [address] 04/30/2025 13:10:48 04/30/2025 14:21:57 Menorrhagia 484494192 N92.0 Pain in pelvis 93466445 R10.2 [id number] Dandy Duque DO Main Office [address] [place] [address] 05/06/2025 09:53:34 05/06/2025 09:53:57 Menorrhagia 816197970 N92.0 [id number] Dandy Duque DO Main Office [address] [place] [address] [place] [address] 05/16/2025 09:46:04 05/16/2025 10:34:16 Postoperative visit 103253791 Z48.89 Health Concerns Section Related Observation LastModified by Organization Detai ls LastModified Time None Recorded Concern Status LastModified by Organization Details LastModified Time None Recorded Payers Encounter Date Sequence Insurance Name Policy Number Policy Renee Covered Member ID Renee Member ID Guarantor Name 05/16/2025 1 [place] [id number] Cleine Dc [id number] Celine Dc Notes Date Note Type Note Provider Name and Address Organization Details Recorded Time 05/16/2025 text/html Post-OpReported bypatient.Onset/Leonid ing:date of surgery: (05/06/2025) Quality:procedure: (robotic laser laparoscopy, hysteroscopy, D&C, endometrial ablation) Context:reason for procedure: (heavy irregular bleeding); operative findings: (minimal endometriosis, adhesions); operative complications: (none mentioned in report); postoperative complications: (none); pathology findings: (benign: report reviewed) Associated Symptoms:incision healing well; no fatigue; normal appetite; normal bowel function; no constipation; no nausea; no emesis; no pain; no fever; no bleeding; no lower extremity edema/pain; no dysuria/urinary symptoms Dandy Duque, DO [address], [place], [address], [facility], 2025 12:38:02 OBGyn Episode No OBEpisode recorded.
--- OUTSIDE RECORDS SUMMARY | 2025-06-10 10:26 | XMS_ITS | Encounter Summary ---
Author Organization [facility] Address [address] [place] [address] Care Team Providers Care Facing Machine Operator Name Role Phone Dustin Gomez MD Primary Care Provider Unavailabl e Doctor, No Primary Care Provider Unavailabl e Encounter Details Date Type Department Care Team (Latest Contact Info) Description 04/09/2010 Transcribe Orders [facility] [address] [place] [address] Dustin Gomez MD Hypopotassemia (Primary [...] EDT) POTASSIUM 3.4(L) 3.6 - 5.0 MMOL/L [facility] 04/09/2010 8:10 AM EDT 04/09/2010 11:51 AM EDT us Dustin Gomez MD CHEMISTRY ORDERABLES Final Resul t [facility] [address] [facility] [place] [address] documented in this encounter Visit Diagnoses Diagnosis Hypopotassemia- Primary documented in this encounter Care Teams Facing Machine Operator Relationship Specialty Start Date End Date Dustin Gomez MD PCP - General 08/02/08 02/11/14 Vicki Villavicencio [place] PCP - General Family Medicine 02/12/14 12/30/17 documented as of this encounter
--- OUTSIDE RECORDS SUMMARY | 2025-06-10 10:26 | XMS_ITS | Encounter Summary ---
Author Organization [facility] Address [address] [place] [address] Care Team Providers Care Upper Stitcher Name Role Phone Dustin Gomez MD Primary Care Provider Unavailabl e Doctor, Vicki Primary Care Provider Unavailabl e Reason for Visit * Reason Onset Date Comments Medications Refill 03/23/2011 Encounter Details Date Type Department Care Team (Late st Contact Info) Description 03/23/2011 Refill [facility] [address] [place] [address] Dustin Gomez MD 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 [...] on filedocumented in this encounter Care Teams Upper Stitcher Relationship Specialty Start Date End Date Dustin Gomez MD PCP - General 08/02/08 02/11/14 , ELOISA Vides PCP - General Family Medicine 02/12/14 12/30/17 documented as of this encounter
--- OUTSIDE RECORDS SUMMARY | 2025-06-10 10:26 | XMS_ITS | Clinical Summary ---
Author Organization [facility] Address [address] [place] [address] Care Team Providers Care Grounds Cleaner Name Role Phone Unavailable Primary Care Provider [...] VACCINE (1 - Tdap) 2003 INFLUENZA VACCINE (#1) 2025 HEP A VACCINE Aged Out No longer elig ible based on patient's age to complete this topic HIB VACCINE Aged Out No longer eligi ble based on patient's age to complete this topic ROTOVIRUS VACCINE Aged Out No longer eligible based on patient's age to complete this topic Insurance [address] [address] BLUE [facility]
--- OUTSIDE RECORDS SUMMARY | 2025-06-10 10:26 | XMS_ITS | Data Portability ---
Author Organization [facility],, Main Office Address [address] [place] [address] Assessment Encounter Date Assessment Date Assessment LastModified by Organization Details LastModified Time 04/30/2025 04/30/2025 Patient presents for evaluation. History and physical exam indicate: aub. Annual gynecological exam performed. Patient will come back in a year unless there are new symptoms. trini Not available 05/18/2025 20:22:59 Plan of Treatment Reminders Order Date Submit Date Provider Last Modified By Organization Details Last Modified Time Details Appointments ESTABLISH ED PATIENT 15 2024 10:00A JASMINE Olguin Not available Not available Not available Lab urinalysi s, dipstick 2024 025 aclaxon Main Office, [address], [place], [address], 05/18/2025 18:40:38 urinalysi s, dipstick 2024 025 trini Main Office, [address], [place], [address], 03/31/2025 15:48:51 test, urine 2024 025 trini Main Office, [address], [place], [address], 03/31/2025 15:48:51 urinalysi s, dipstick 2024 025 trini Main Office, [address], [place], [address], 03/31/2025 12:44:30 test, urine 2024 025 trini Main Office, [address], [place], [address], 03/31/2025 12:44:30 Referral None recorded. Procedures None recorded. Surgeries None recorded. Imaging None recorded. Medication Orders None recorded. Patient TargetsNo targets recorded. Patient Instructions Encounter Date Encounter Id Patient Instructions Last Modified By Organization Details Last Modified Time 03/13/2025 [id number] wants to do endo ablation, sis endo bx scheduled gveloudis Not available 03/13/2025 21:00:25 04/30/2025 [id number] heavy menstrual periods: care instructions aclaxon Not available 04/30/2025 15:35:58 Conservative and surgical options discussed, alternatives reviewed. Risks associated with each were reviewed. All questions answered. Pros and cons were reviewed. State with vasectomy gveloudis Not available 05/18/2025 20:24:28 05/06/2025 [id number] heavy menstrual periods: care instructions gveloudis Not available 2025 12:37:21 procedure gveloudis Not available 2024 12:37:15 05/16/2025 [id number] Risks of not following up discussed. Questions [...] e: Cervi dru/E ndoce rvica l LMP: [id number] Date Taken : 03/06 Speci men Type: ThinP rep Vial Date Repor anand: 2024 Clini dru Data: Last Pap: wnl (404 2023) Cytot ech: Balbina Lott, CT( CP) Date Repor anand: 2024 Speci men [...] ded by [facility], d/b/a Haritha amaro, [address] [place] [address] Maura ramachandran MD, [facility]. Case revie wed and diagn osis rende red at [facility], d/b/a Haritha amaro, [address] [place] [address] Maura ramachandran MD, [facility] at[facility]. CONFI DENTI AL Not Available [facility] ([facility]) [address], [place], [address], 03/08/2025 12:11:10 03/06/2003/06/2025 urina lysis , dipst ick Leukocytes trace Not Available Main Of fice [address], [place], [address], 03/06/2025 09:53:49 03/06/2003/06/2025 urina lysis , dipst ick Nitrite negati ve Not Available Main Office [address], [place], [address], 03/06/2025 09:53:49 03/06/2003/06/2025 urina lysis , dipst ick Urobilinogen - Not Available Main Office [address], [place], [address], 03/06/2025 09:53:49 03/06/2003/06/2025 urina lysis , dipst ick Protein - Not Available Main Offic e [address], [place], [address], 03/06/2025 09:53:49 03/06/2003/06/2025 urina lysis , dipst ick pH 6.0 Not Available Main Offic e [address], [place], [address], 03/06/2025 09:53:49 03/06/2003/06/2025 urina lysis , dipst ick Specific [place] 1.005 Not Available Main O ffice [address], [place], [address], 03/06/2025 09:53:49 03/06/2003/06/2025 urina lysis , dipst ick Ketone - Not Available Main Offic e [address], [place], [address], 03/06/2025 09:53:49 03/06/2003/06/2025 urina lysis , dipst ick Bilirubin - Not Available Main Off ice [address], [place], [address], 03/06/2025 09:53:49 03/06/20 25 03/06/2025 pregn nanci test, urine HCG negati ve Not Available Main Office [address], [place], [address], 03/06/2025 09:53:58 03/13/20 25 03/13/2025 pregn nanci test, urine HCG negati ve Not Available Main Office [address], [place], [address], 03/13/2025 15:53:15 03/13/20 25 03/13/2025 urina lysis , dipst ick Leukocytes - Not Available Main Of fice [address], [place], [address], 03/13/2025 15:53:06 03/13/20 25 03/13/2025 urina lysis , dipst ick Nitrite negati ve Not Available Main Office [address], [place], [address], 03/13/2025 15:53:06 03/13/20 25 03/13/2025 urina lysis , dipst ick Urobilinogen - Not Available Main Office [address], [place], [address], 03/13/2025 15:53:06 03/13/20 25 03/13/2025 urina lysis , dipst ick Protein - Not Available Main Offic e [address], [place], [address], 03/13/2025 15:53:06 03/13/20 25 03/13/2025 urina lysis , dipst ick pH 6.0 Not Available Main Offic e [address], [place], [address], 03/13/2025 15:53:06 03/13/20 25 03/13/2025 urina lysis , dipst ick Specific [place] 1.005 Not Available Main O ffice [address], [place], [address], 03/13/2025 15:53:06 03/13/20 25 03/13/2025 urina lysis , dipst ick Ketone - Not Available Main Offic e [address], [place], [address], 03/13/2025 15:53:06 03/13/20 25 03/13/2025 urina lysis , dipst ick Bilirubin - Not Available Main Off ice [address], [place], [address], 03/13/2025 15:53:06 03/27/20 25 04/01/2025 SURGI DRU PATHO LOGY surgical pathology View Report ACCES ILDEFONSO #: [id number] 63 Patie nt [...] label ed Reinaldo aldrich, Margy moncada and endom etria l biops y are multi ple piece s of rocha-b rown tissu e aggre gatin g 1.4 x 0.5 x less than 0.1 cm. The speci mens are filte red and submi tted entir finn in casse tte 1A, M/1. (HMR, RR13, pc9) Gross ing servi luis provi ded [facility] [employer] [employer], d/b/a [facility] [address] [place], [address] Maura ramachandran MD, [facility]. Micro scopi c Descr iptio [...] Techn ical servi luis provi ded by [facility], d/b/a [facility], [address] [place] [address] Maura ramachandran MD, [facility]. Case revie wed and diagn osis rende red at [facility], d/b/a [facility], [address], [place] [address] Inderjit Ponce MD, [facility]. CONFI DENTI AL Not Available [facility] ([facility]) [address], [place], [address], 04/01/2025 15:12:19 03/27/20 25 03/27/2025 urina lysis , dipst ick Leukocytes - Not Available Main Of fice [address], [place], [address], 03/27/2025 16:02:31 03/27/20 25 03/27/2025 urina lysis , dipst ick Nitrite negati ve Not Available Main Office [address], [place], [address], 03/27/2025 16:02:31 03/27/20 25 03/27/2025 urina lysis , dipst ick Urobilinogen - Not Available Main Office [address], [place], [address], 03/27/2025 16:02:31 03/27/20 25 03/27/2025 urina lysis , dipst ick Protein - Not Available Main Offic e [address], [place], [address], 03/27/2025 16:02:31 03/27/20 25 03/27/2025 urina lysis , dipst ick pH 6.0 Not Available Main Offic e [address], [place], [address], 03/27/2025 16:02:31 03/27/20 25 03/27/2025 urina lysis , dipst ick Specific [place] 1.005 Not Available Main O ffice [address], [place], [address], 03/27/2025 16:02:31 03/27/20 25 03/27/2025 urina lysis , dipst ick Ketone - Not Available Main Offic e [address], [place], [address], 03/27/2025 16:02:31 03/27/20 25 03/27/2025 urina lysis , dipst ick Bilirubin - Not Available Main Off ice [address], [place], [address], 03/27/2025 16:02:31 03/27/20 25 03/27/2025 urina lysis , dipst ick Glucose Not Available Main Offic e [address], [place], [address], 03/27/2025 16:02:31 03/27/20 25 03/27/2025 pregn nanci test, urine HCG negati ve Not Available Main Office [address], [place], [address], 03/27/2025 16:02:40 05/16/20 25 05/16/2025 urina lysis , dipst ick Leukocytes - Not Available Main Of fice [address], [place], [address], 05/16/2025 09:51:34 05/16/20 25 05/16/2025 urina lysis , dipst ick Nitrite negati ve Not Available Main Office [address], [place], [address], 05/16/2025 09:51:34 05/16/20 25 05/16/2025 urina lysis , dipst ick Urobilinogen - Not Available Main Office [address], [place], [address], 05/16/2025 09:51:34 05/16/20 25 05/16/2025 urina lysis , dipst ick Protein - Not Available Main Offic e [address], [place], [address], 05/16/2025 09:51:34 05/16/20 25 05/16/2025 urina lysis , dipst ick pH 6.0 Not Available Main Offic e [address], [place], [address], 05/16/2025 09:51:34 05/16/20 25 05/16/2025 urina lysis , dipst ick Specific [place] 1.005 Not Available Main O ffice [address], [place], [address], 05/16/2025 09:51:34 05/16/20 25 05/16/2025 urina lysis , dipst ick Ketone - Not Available Main Offic e [address], [place], [address], 05/16/2025 09:51:34 05/16/20 25 05/16/2025 urina lysis , dipst ick Bilirubin - Not Available Main Off ice [address], [place], [address], 05/16/2025 09:51:34 03/13/20 25 03/13/2025 imagi ng/di agnos tic resul t No observ ation record ed. [id number] [address], [place], [address], 03/13/2025 16:54:53 03/13/20 25 03/13/2025 imagi ng/di agnos tic resul t No observ ation record ed. [id number], [place], [address], 03/13/2025 16:55:06 03/27/20 25 03/27/2025 imagi ng/di agnos tic resul t No observ ation record ed. [id number], [place], [address], 03/27/2025 17:03:25 03/27/20 25 03/27/2025 imagi ng/di agnos tic resul t No observ ation record ed. [id number], [place], [address], 03/27/2025 17:03:40 Result Notes None recorded. Procedures Surgical History Date Name Laterality Status Provider Name and Address Organization Details Recorded Time robotic assisted surgery completed JASMINE Lira [address], [place], [address], [facility], 05/18/2025 18:38:06 5 Date of Last Pap Smear completed [facility], 03/06/2025 09:53:36 4 Date of Last Mammogram completed [facility], 03/06/2025 10:00:47 Kidney endoscopy completed JASMINE Lira [address], [place], [address], [facility], 01/14/2020 11:20:09 Imaging Results None recorded. Procedure Notes None recorded. Medical Equipment None Reported. Allergies Allergen ID Allergen Name Allergen Category Reaction Reaction Severity Criticality Documentation Date Start Date Code Code System Note Provider Name and Address Organization Details Recorded Time 794 Product containin g penicilli n (product) medicatio n anaphylax is severe Not available 12/12/2017 07472 8001 SNOMED Mitra Jose [facility], 8 11:40:08 Medications [...] Relief 50 mcg/actuati on nasal spray,suspe nsion [place] 1 spray every day by intranasa l [...] Available Not Available Not Available Flucelvax Quad 2004-6834 (PF) 60 mcg (15 mcg x 4)/0.5 [...] Updated DateTime 5 167.64 cm 43.6 kg/m2 891060. 94 g 85 /min 96.5 [degF] 169/112 mm[Hg] [facility], 5 15:52:24 Date Recorded Body height Body mass index (BMI) Body weight Heart rate Body temperature Systolic And Diastolic Provider Name and Address Organization Details Last Updated DateTime 5 167.64 cm 43.4 kg/m2 684276. 35 g 95 /min 96.7 [degF] 142/99 mm[Hg] [facility], 5 16:01:48 Date Recorded Body height Body mass index (BMI) Body weight Heart rate Body temperature Systolic And Diastolic Provider Name and Address Organization Details Last Updated DateTime 5 167.64 cm 43.4 kg/m2 313944. 35 g 98 /min 97 [degF] 116/91 mm[Hg] Nicole [facility], 5 13:15:01 Date Recorded Body height Body mass index (BMI) Body weight Heart rate Body temperature Systolic And Diastolic Provider Name and Address Organization Details Last Updated DateTime 5 167.64 cm 44.2 kg/m2 406440. 31 g 93 /min 96.6 [degF] 147/100 mm[Hg] [facility], 5 09:49:48 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 Question Answer Notes LastModified by Organizat ion Details LastModified Time Tobacco Smoking Status Never Smoker Not Available [employer] 09/23/2020 03:20:23 Able To Swim? Yes Information not available 12/12/2017 Accident Related Injury No Information not available 12/12/2017 Do You Have An Advance Directive? No [id number] Information not available 09/23/2020 How Many Years Have You Consumed Alcohol? 12 [id number] Information not available 09/23/2020 Animal Exposure? Yes Informat ion not available 12/12/2017 Are You Currently Sexually Active With Anyone Who Has Traveled (within The Last 12 Weeks) To A Zika-affected Area? No [id number] Information not available 09/23/2020 Do You Wear A Helmet When Biking? No [id number] Information not available 09/23/2020 Are You Blind Or Do You Have Difficulty Seeing? No [id number] Information not available 09/23/2020 What Is Your Level Of Caffeine Consumption? Occasional [id number] Information not available 09/23/2020 How Much Tobacco Do You Chew? None [id number] Information not available 09/23/2020 Concerns About Meeting Basic Needs (food, Housing, Heat, Etc)? No Information not available 12/12/2017 Are You Deaf Or Do You Have Serious Difficulty Hearing? No [id number] Information not available 09/23/2020 What Type Of Diet Are You Following? REGULAR [id number] Information not available 09/23/2020 Which Illicit Or Recreational Drugs Have You Used? None [id number] Information not available 09/23/2020 Education Post Graduate Information not available 12/12/2017 Family History Of Heart Disease? Yes Information not available 12/12/2017 Have There Been Any Changes To Your Family Or Social Situation? No [id number] Information no t available 09/23/2020 Are There Any Guns Present In Your Home? Yes [id number] Information not available 09/23/2020 Hard Of Hearing Or Deaf In One Or Both Ears? No Information not available 12/12/2017 Legally Blind In One Or Both Eyes? No Information no t available 12/12/2017 Live Alone Or With Others? With Others Information not available 12/12/2017 Do You Have A Medical Power Of Director Banking? No [id number] Information not available 09/23/2020 What Was The Date Of Your Most Recent Tobacco Screening? 12/18/2018 [id number] Information not available 09/23/2020 How Many Children Do You Have? 0 [id number] Information not available 09/23/2020 Performs Monthly Self-breast Exam? No Information no t available 12/12/2017 Do You Have Any Pets? Yes [id number] Information not available 09/23/2020 Difficulty Reading? No Information not available 12/12/2017 Seat Belts Used Routinely Yes Information not available 12/12/2017 Are You Sexually Active? Yes [id number] Information not available 09/23/2020 Smoke Alarm In Home Yes Information not available 12/12/2017 Do You Have Smoke And Carbon Monoxide Detectors In Your Home? Yes [id number] Information not available 09/23/2020 Are You Passively Exposed To Smoke? No Information no t available 12/12/2017 Are There Any Smokers In Your House? No Information not available 12/12/2017 How Much Tobacco Do You Smoke? No [id number] Information not available 09/23/2020 General Stress Level Medium Information not available 12/12/2017 Sun Exposure Occasional Information not available 12/12/2017 Do You Use Sunscreen Routinely? Yes [id number] Information not available 09/23/2020 TB Risk Low Information no t available 12/12/2017 Has Tobacco Cessation Counseling Been Provided? No [id number] Information not available 09/23/2020 Difficulty Watching TV? No Information not available 12/12/2017 Do You Have Difficulty Walking Or Climbing Stairs? No [id number] Information not available 09/23/2020 Sex: Unknown Functional Status Question Answer Note LastModified by Organizat ion Details LastModified Time What is your level of alcohol consumption? Occasional [id number] Information not available 09/23/2020 Are you currently employed? Yes [id number] Information not available 09/23/2020 Do you have transportation difficulties? No [id number] Information not available 09/23/2020 Are you able to walk? YESWOREST [id number] Information not available 09/23/2020 Do you have difficulty doing errands alone? No [id number] Information not available 09/23/2020 Are you able to care for yourself? 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 No [id number] Information not available 09/23/2020 What is your exercise level? Occasional [id number] Information not available 09/23/2020 Mental Status Question Answer Note LastModified by Organization D etails LastModified Time Do you have difficulty concentrating, remembering or making decisions? No [id number] Information no t available 09/23/2020 Family History Relationship Description Onset Age of this Age Resolved Age Notes LastModified by Organization Details LastModified Time Mother Hypertensive disorder d[place] Not available 12/12 11:47:55 Mother Diabetes mellitus [email or web address] Not available 12/12 11:48:11 Mother Family history of malignant neoplasm mantle cell lympho ma [email or web address] Not available 09/15/2020 08:26:46 Mother Kidney disease [...] history of malignant neoplasm cervic al cancer [email or web address] Not available 09/15/2020 08:26:46 Sister Headache dcongleton [...] preservative 7 completed Not Available [facility] 12/29/2019 02:17:09 Past Encounters Encounter ID Performer Location Encounter Start Date Encounter Closed Date Diagnosis/Indication Diagnosis SNOMED-CT Code Diagnosis ICD10 Code Diagnosis Note [id number] JASMINE Lira Main Office [address] [place] [address] 12/12/2017 10:53:18 12/12/2017 12:31:17 Gynecologic examination 74855425 Z01.411 Body mass index 30+ - obesity 311792978 Z68.35 Screening for malignant neoplasm of colon 218808116 Z12.11 Screening for mental disorders 360483692 Z13.89 Alcohol co nsumption screening 861503536 Z13.89 Contracept ion care management 052522398 Z30.9 [id number] Dandy Duque DO Main Office [address] [place] [address] 12/18/2018 13:19:35 12/18/2018 14:12:33 Renewal of prescription 068296369 Z76.0 Gynecologi c examination 93451710 Z01.411 pap Secondary dysmenorrhea 02319714 N94.5 Contraception care 68613 5005 Z30.41 Screening for malignant neoplasm of colon 324342821 Z12.11 Body mass index 30+ - obesity 007925610 Z68.32 [id number] Dandy Duque DO Main Office [address] [place] [address] 01/14/2020 10:28:34 01/14/2020 11:48:12 Gynecologic examination 39759678 Z01.411 pap Renewal of prescription 329090101 Z76.0 Secondary dysmenorrhea 44807370 N94.5 controlled Contraception care 56786 5005 Z30.41 [id number] Dandy Duque DO Main Office [address] [place] [address] 09/15/2020 08:26:11 09/15/2020 09:30:10 Irregular periods 71535602 N92.5 labs and u/s ordered Pain in pelvis 04576711 R10.2 Secondary dysmenorrhea 04713488 N94.5 controlled Break-thro ugh bleeding 31257612 N92.1 [id number] Dandy Duque DO Main Office [address] [place] [address] 09/22/2020 13:35:58 09/22/2020 14:23:12 Irregular periods 49831310 N92.0 Pain in pelvis 17963380 R10.2 Cyst of right ovary 1223 899755 1661751 N83.291 Menorrhagia 029566121 N9 2.0 [id number] Dandy Duque DO Main Office [address] [place] [address] [place] [address] 11/25/2020 09:27:34 11/25/2020 10:52:01 Abnormal uterine bleeding 7398771976 9100 N93.8 Pain in pelvis 29095046 R10.2 Cyst of right ovary 1223 610702 6681899 N83.291 Cyst of left ovary 14511 71564 8828096 N83.292 [id number] Dandy Duque DO Main Office [address] [place] [address] 01/26/2021 15:10:31 01/26/2021 16:10:47 Pain in pelvis 98729680 R10.2 resolved/c ontrolled Dryness of vulva 1432364 3 N90.89 Gynecologi c examination 74823115 Z01.411 pap Cyst of right ovary 1223 128706 0308067 N83.291 symptoms resolved Cyst of left ovary 06164 70561 3236483 N83.292 symptoms resolved Leukocytes in urine 2757 16457 R82.79 Screening for mental disorders 380301019 Z13.89 [id number] Dandy Duque DO Main Office [address] [place] [address] 03/01/2022 09:17:45 03/01/2022 10:00:18 Gynecologic examination 85388672 Z01.419 pap Renewal of prescription 556711297 Z76.0 Screening for mental disorders 981101701 Z13.89 [id number] Dandy Duque DO Main Office [address] [address] 03/01/2023 09:17:53 03/01/2023 10:37:56 Gynecologic examination 40058066 Z01.411 pap Menorrhagia 855051971 N9 2.0 u/s, consider mirena or ablation Screening for mental disorders 355111660 Z13.89 Genetic sc reening for disorder 313885476 Z13.71 bra testing today Premenstru al tension syndrome 49307239 N94.3 [id number] Dandy Duque DO Main Office [address] [address] 03/02/2024 09:21:06 03/02/2024 10:16:59 Renewal of prescription 592300156 Z76.0 Gynecologi c examination 03627979 Z01.411 pap. patient given phone # to schedule screening mammogram ([facility]) Screening for mental disorders 652960406 Z13.89 [id number] Dandy Duque DO Main Office [address] [address] 03/06/2025 09:45:36 03/06/2025 10:22:07 Well woman health examination 214329399 Z01.411 pap. has had mammogram. Menorrhagia 956045586 N9 2.0 u/s, considerin g ablation Leukocytes in urine 2757 93422 R82.998 Pain in pelvis 44331981 R10.2 resolved/c ontrolled [id number] Dandy Duque DO Main Office [address] [place] [address] 03/13/2025 15:47:12 03/13/2025 16:56:19 Abnormal uterine bleeding 2069107172 9100 N93.8 Pain in pelvis 79464775 R10.2 Large ovary 43821479 N83 .8 [id number] Dandy Duque DO Main Office [address] [place] [address] 03/27/2025 15:58:46 03/28/2025 07:59:23 Abnormal uterine bleeding 1667546637 9100 N93.8 Pain in pelvis 81467645 R10.2 Large ovary 95639364 N83 .8 [id number] Dandy Duque DO Main Office [address] [place] [address] 04/30/2025 13:10:48 04/30/2025 14:21:57 Menorrhagia 558974333 N92.0 Pain in pelvis 03044328 R10.2 [id number] Dandy Duque DO Main Office [address] [address] 05/06/2025 09:53:34 05/06/2025 09:53:57 Menorrhagia 527116172 N92.0 [id number] Dandy Duque DO Main Office [address] [address] 05/16/2025 09:46:04 05/16/2025 10:34:16 Postoperative visit 620672847 Z48.89 Health Concerns Section Related Observation LastModified by Organization Detai ls LastModified Time None Recorded Concern Status LastModified by Organization Details LastModified Time None Recorded Advance Directives Directive N: Payers Insurance Date Sequence Insurance Name Policy Number Policy Renee Covered Member ID Renee Member ID Guarantor Name 04/30/2025 1 [place] [id number] Celinedalia Dc [id number] Celine F Dao 05/27/2025 1 [place] [id number] Celine F Dao [id number] Celine Sandrine Dc Notes Date Note Type Note Provider Name and Address Organization Details Recorded Time 04/30/2025 text/html Pre-OpReported bypatient.Surgery to be Performed:robotic laser laparoscopy, hysteroscopy, D&C, novasure endometrial ablation, lysis of adhesions, decompression of ovarian cysts Context/Condition Being Addressed:pelvic pain, menorrhagia Location:[facility] Severity:severe Risk Factorsno cognitive impairment; no functional impairment; no malnutrition; no frailty; able to climb a flight of stairs (exercise capacity>4 METS); non-smoker; no alcohol misuse; no illicit drug use;regular NSAID use;obstructive sleep apnea;chronic cardiopulmonary condition(HTN);obese Anesthesia hx:no hx of anesthesia complications;family history of anesthesia complications(patient 's mother: unsure what the complication was) Functional Ability:able to walk up stairs; able to perform heavy work around the house; no difficulty walking up hills Patient presents for evaluation. Discussed laparoscopy, hysteroscopy, D&C, novasure endometrial ablation. Dandy Duque, DO [address], [place], [address], [facility], 05/18/2025 20:27:12 05/16/2025 text/html Post-OpReported bypatient.Onset/Timin g:date of surgery: (05/06/2025) Quality:procedure: (robotic laser laparoscopy, [...] symptoms Dandy Duque, DO [address] [facility] [address], [place], [address], [facility], 2025 12:38:02 OBGyn Episode No OBEpisode recorded.
--- OUTSIDE RECORDS SUMMARY | 2025-06-10 10:27 | XMS_ITS | Encounter Summary ---
Author Organization [facility] Address [address] [place] [address] Care Team Providers Care Table Attendant Name Role Phone Dustin Gomez MD Primary Care Provider Unavailabl e Doctor, Vicki Primary Care Provider Unavailabl e Reason for Visit * Reason Onset Date Comments Referral Status 04/16/2010 Encounter Details Date Type Department Care Team (Late st Contact Info) Description 04/16/2010 Telephone [facility] [address] [place] [address] Jesus Osborne APRN Referral Status [...] on filedocumented in this encounter Care Teams Table Attendant Relationship Specialty Start Date End Date Dustin Gomez MD PCP - General 08/02/08 02/11/14 , ELOISA Vides PCP - General Family Medicine 02/12/14 12/30/17 documented as of this encounter
--- OUTSIDE RECORDS SUMMARY | 2025-06-10 10:27 | XMS_ITS | Encounter Summary ---
Author Organization [employer] ([place], [place], [place], [place]) Address [address] [place] [address] Care Team Providers Care Mine Engineering Supervisor Name Role Phone Tyrell Magana MD Primary Care Provider +1- [phone] Encounter Details Date Type Department Care Team [...] Date Surinder rded Speak language other than Finnish at home Not on file 12/16/2023 Want [...] as of this encounter Plan of Treatment Upcoming Encounters Date Type Department Care Team (Latest Contact Info) Description 06/12/2025 12:02 PM EDT Hospital Encounter [facility] Operating Room [address] [place] [address] Vaibhav Chester MD [address] [place] [address] 06/12/2025 12:02 PM EDT - 06/12/2025 1:49 PM EDT Surgery [facility] Operating Room [address] [place] [address] Vaibhav Chester MD [address] [place] [address] (LEFT HIP ARTHROSCOPIC BURSECTOMY, POSSIBLE ABDUCTOR REPAIR) Scheduled Procedures Name Priority Associated Diagnoses Date/Ti me BURSECTOMY, HIP Trochanteric bursitis, left hip 06/12/2025 12:02 PM EDT documented as of this encounter Visit Diagnoses Not on filedocumented in this encounter Care Teams Mine Engineering Supervisor Relationship Specialty Start Date End Date Tyrell Magana MD [address] [place] [address] [place] [address] PCP - General Family Medicine 11/15/23 documented as of this encounter
--- OUTSIDE RECORDS SUMMARY | 2025-06-10 10:27 | XMS_ITS | Referral Summary ---
Author Organization [employer] ([place], [place], [place], [place]) Address [address] [place] [address] Care Team Providers Care Field Account Manager Name Role Phone Tyrell Magana MD Primary Care Provider +1- [phone] Encounters Date Type Department Care Team Description 05/06/2025 Travel 05/06/2025 12:00 PM EDT - 05/06/2025 1:52 PM EDT Surgery [facility] Surgery Department [address] [place] [address] Justice Miller MD Diagnostic LAPAROSCOPY, ENDOMETRIAL ABLATION 05/06/2025 12:59 PM EDT Anesthesia Event [facility] Surgery Department [address] [place] [address] Chery Gill CRNA Booker, Philip Craig, MD 05/06/2025 9:19 AM EDT - 05/06/2025 3:19 PM EDT Hospital Encounter [facility] Surgery Department [address] [place] [address] Justice Miller MD Excessive or frequent menstruation; Encounter for gynecological examination with abnormal finding; Excessive, frequent and irregular menstruation; Secondary dysmenorrhea Discharge Disposition: Home or Self Care 04/30/2025 3:54 PM EDT - 04/30/2025 11:59 PM EDT Hospital Encounter [facility] Diagnostic Imaging [address] [place] [address] Justice Miller MD Discharge Disposition: Home or Self Care 04/30/2025 Travel 04/30/2025 2:38 PM EDT - 04/30/2025 3:53 PM EDT Hospital Encounter [facility] [address] [place] [address] Justice Miller MD Pre-op testing (Primary Dx); RLS (restless legs syndrome) Discharge Disposition: Home or Self Care from Last 3 Months Allergies Active Allergy Reactions Criticality Noted Date Comments Cephalexin Nausea And Vomiting 11/16/2023 Other reaction(s): Syncope Penicillin Anaphylaxis High 11/16/2023 Medications busPIRone (BUSPAR) 7.5 MG tablet Take 1 tablet (7.5 mg total) by mouth 2 (two) times daily. 3 Active famotidine (PEPCID) 40 MG tablet Take 1 tablet (40 mg total) by mouth daily. 3 Active glycopyrrolate (RobinuL) 1 mg tablet 3 Active levocetirizine (Xyzal) 5 MG tablet 3 Active lisinopriL (PRINIVIL,ZESTR IL) 10 MG tablet Take 1 tablet (10 mg total) by mouth 3 (three) times daily. 3 Active meloxicam (MOBIC) 7.5 MG tablet TAKE 1 TABLET BY MOUTH EVERY DAY FOR ARTHRITIS 3 Active metFORMIN (GLUCOPHAGE) 500 MG tablet Active multivit with calcium,iron,mi n (MULTIVITAMIN-C ALCIUM AND IRON ORAL) 3 Active norethindrone-e thinyl estradiol-iron (Junel FE 1.5/30, 28,) 1.5 mg-30 mcg (21)/75 mg (7) per tablet 3 Active pantoprazole (PROTONIX) 40 MG tablet Take 1 tablet (40 mg total) by mouth daily. Active potassium citrate (Urocit-K 15) 15 mEq TbER 3 Active propranoloL (Inderal LA) 60 MG 24 hr capsule 3 Active rOPINIRole (REQUIP) 0.25 MG tabletIndicatio ns:restless leg syndrome Take 4 tablets (1 mg total) by mouth daily. 3 Active zafirlukast (Accolate) 20 MG tablet 3 Active DULoxetine (CYMBALTA) 30 MG capsule Take 1 capsule (30 mg total) by mouth daily. Active fluticasone propionate (FLONASE) 50 mcg/actuation nasal spray Administer 1 spray into each nostril daily. Active hydroCHLOROthia zide (MICROZIDE) 12.5 mg capsule Take 1 capsule (12.5 mg total) by mouth daily. Active Missing or Non-Formulary Medication PROBIOTIC. Active cholecalciferol (VITAMIN D3) 125 mcg (5,000 unit) tablet Take 1 tablet (5,000 Units total) by mouth daily. Active cetirizine (ZyrTEC) 10 MG tablet Take 1 tablet (10 mg total) by mouth daily. Active Active Problems Problem Noted Date Diagnosed [...] Date Surinder rded Speak language other than Monegasque at home Not on file 12/16/2023 Want [...] 04/30/2025 2:50 PM EDT Plan of Treatment Upcoming Encounters Date Type Department Care Team (Latest Contact Info) Description 06/12/2025 12:02 PM EDT Hospital Encounter [facility] Operating Room [address] [place] [address] Vaibhav Chester MD [address] [place] [address] 06/12/2025 12:02 PM EDT - 06/12/2025 1:49 PM EDT Surgery [facility] Operating Room [address] [place] [address] Vaibhav Chester MD [address] [place] [id number] (LEFT HIP ARTHROSCOPIC BURSECTOMY, POSSIBLE ABDUCTOR REPAIR) Scheduled Procedures Name Priority Associated Diagnoses Date/Ti me BURSECTOMY, HIP Trochanteric bursitis, left hip 06/12/2025 12:02 PM EDT Procedures Procedure Name Priority Date/Time Associated Diagnosis Comments NOVA GLUCOSE POC Routine 05/06/2025 2:12 PM EDT TISSUE EXAM [facility] AP Routine 05/06/2025 1:43 PM EDT Excessive or frequent menstruation Encounter for gynecological examination with abnormal finding Excessive, frequent and irregular menstruation Secondary dysmenorrhea ANESTHESIA INTUBATION Routine 05/06/2025 1:06 PM EDT [place] HYSTEROSCOPY ENDOMETRIAL ABLATION 05/06/2025 12:58 PM EDT Excessive or frequent menstruation Encounter for gynecological examination with abnormal finding Excessive, frequent and irregular menstruation Secondary dysmenorrhea Case Notes This case needs to be Robotic per TEJAS Love [place] LAPS ABD PRTM&OMENTUM DX W/WO SPEC BR/WA [...] Glucose, Nova Meter (05/06/2025 2:12 PM EDT) [facility] POC-GLUCOSE 104 70 - 110 mg/dL 05/06/2025 2:13 PM EDT [facility] Comment: In the event of poor peripheral blood flow, venous or arterial blood should be used due to the potential of erroneous results. No action Require Contact Agent [phone] 05/06/2025 2:13 PM EDT [facility] Blood WHOLE BLOOD / Unknown 05/06/2025 2:12 PM EDT 05/06/2025 2:13 PM EDT Narrative [facility] - 05/06/2025 2:13 PM EDT Contact Agent ID is - [phone] Justice Miller MD POINT OF CARE TEST ORDERABLES Final Result [facility] [address] [place] [address], [facility] [phone] * Tissue Exam (05/06/2025 1:43 PM EDT) AP RESULT See Note: [facility] Comment: [facility] [address] [place] [address] or [phone] Heath Pruett M.D., Service Member PATIENT NAME LABORATORY NO. 17[address] CELINE MARKS. [id number] AGE SEX SSN CLIENT REF # [facility] 39 1985 F [id number] [address] REQUESTING Gustavo [place] [address] JUSTICE MILLER DATE COLLECTED DATE RECEIVED DATE [...] rendered by Ailyn Siddiqui M.D., F.C.A.P. at [email or web address], [address] [place] [address]. GROSS DESCRIPTION: Labeled endometrial curettings consists of multiple pieces of rocha-brown soft tissue measuring 3.0 x 2.5 x 0.6 cm in aggregate. Specimens are filtered and submitted entirely in 3 blocks. BKO REVIEWED, DIAGNOSED AND ELECTRONICALLY SIGNED BY: Ailyn Siddiqui M.D., F.C.A.P. CPT CODES: [id number] Tissue SPECIMEN FROM ENDOMETRIUM OBTAINED BY CURETTAGE / Unknown 05/06/2025 1:43 PM EDT Justice Miller MD PATHOLOGY/CYTOLOGY ORDERABLES Final Result [facility] [address] [place] [address] * AN SINGLE LUMEN INTUBATION (05/06/2025 1:06 [...] electronically signed by Nithin Matamoros MD Voice unix system administrator technology (Power Scribe) is used for the dictation of this note and sound-alike words might be erroneously placed despite reviewing this note for accuracy. Errors in dictation may reflect use of voice recognition software and not all errors in unix system administrator may have been detected prior to signing. [...] electronically signed by Nithin Matamoros MD Voice unix system administrator technology (Power Scribe) is used for the dictation of this note and sound-alike words might be erroneously placed despite reviewing this note for accuracy. Errors in dictation may reflect use of voice recognition software and not all errors in unix system administrator may have been detected prior to signing. us Justice Miller MD IMG DIAGNOSTIC IMAGING ORDERA BLES Final Result * Screen, urine (04/30/2025 3:08 PM EDT) Preg Test, Ur Negative Negative, Inconclusive 04/30/2025 3:26 PM EDT [facility] Urine 04/30/2025 3:08 PM EDT 04/30/2025 3:08 PM EDT us Justice Miller MD URINE ORDERABLES Final Result [facility] [address] [id number], [facility] [phone] * CBC with automated diff (04/30/2025 3:07 [...] [facility] [address] [phone] * (ABNORMAL) Comprehensive metabolic panel (04/30/2025 3:07 [...] 8.5 - 10.1 mg/dL 04/30/2025 3:32 PM T [facility] Glucose 105 74 - 106 mg/dL 04/30/2025 3:32 PM EDT [facility] BUN 11 7 - 22 mg/dL 04/30/2025 3:32 PM T [facility] Creatinine 0.85 0.55 - 1.02 mg/dL 04/30/2025 3:32 PM T [facility] BUN/Creatinine 13 8 - 20 04/30/2025 3:32 PM T [facility] Albumin 3.5 3.4 - 5.0 g/dL 04/30/2025 3:32 PM T [facility] Alkaline Phosphatase 50 27 - 136 U/L 04/30/2025 3:32 PM T [facility] ALT 54 12 - 78 U/L 04/30/2025 3:32 PM T [facility] AST 46(H) 5 - 37 U/L 04/30/2025 3:32 PM T [facility] Total Bilirubin 0.2 0.2 - 1.3 mg/dL 04/30/2025 3:32 PM T [facility] Protein, Total 7.0 6.4 - 8.2 gm/dL 04/30/2025 3:32 PM T [facility] Anion Gap 12 9 - 20 04/30/2025 3:32 PM T [facility] A/G Ratio 1.0(L) 1.1 - 2.5 04/30/2025 3:32 PM T [facility] Globulin 3.5 1.5 - 4.5 g/dL 04/30/2025 3:32 PM T [facility] Osmolality Calc 275.4 mOsm/kg 3:32 PM T [facility] [...] ORDERABLES Final Re sult Performing Organization Address City/[facility]/ZIP Co de Phone Number [facility] [address] [phone] * ECG 12 lead (04/30/2025 1:59 PM EDT) VENTRICULAR RATE EKG/MIN 82 BPM GE MUSE ATRIAL RATE (MCT) 82 BPM GE MUSE WI Interval 170 ms GE MUSE QRS-INTERVAL (MSEC) 92 ms GE MUSE QT Interval 354 ms GE MUSE QTC Interval 413 ms GE MUSE P [place] 55 degrees GE MUSE R AXIS (MCT) 69 degrees GE MUSE T Wave [place] 65 degrees GE MUSE [place] Diagnosis Normal sinus rhythm Normal ECG Confirmed by Gustavo FITZGERALD, ALMA ROSA ([id number]) on 04/30/2025 4:57:51 PM GE MUSE 04/30/2025 1:59 PM EDT 04/30/2025 4:57 PM EDT Justice Miller MD ECG ORDERABLES Final Result Performing Organization Address City/[facility] Co de Phone Number GE MUSE from Last 3 Months Insurance BLUE CROSS/BLUE SHIELD Advance Directives For more information, please contact: [phone] * Full Code (Latest Code Status on File) Date Activated Date Inactivated Comments 11/17/2023 11:34 AM 11/17/2023 6:14 PM Care Teams Field Account Manager Relationship Specialty Start Date End Date Tyrell Magana MD [address] [place] [address] PCP - General Family Medicine 11/15/23
--- OUTSIDE RECORDS SUMMARY | 2025-06-10 10:27 | XMS_ITS | Data Portability ---
Author Organization ELOISA EMI [facility] [place] [facility] Address [address] [facility] [place] [address] Care Team Providers Care Nursing Support Worker Name Role Phone LARISSA VILLANUEVA Primary Care Provider Assessment Encounter Date Assessment Date Assessment LastModified by Organization Details LastModified Time 06/07/2024 06/07/2024 We discussed kidney stone prevention with adequate hydration, avoidance of sodium and oxalate with increased dietary citrate. Follow-up with KUB. Potassium citrate for stone prevention. [email or web address] Not available 06/10/2024 18:52:21 06/15/2024 06/15/2024 We reviewed options of management and she wants to proceed with ureteroscopy, laser lithotripsy next available. [email or web address] Not available 06/15/2024 11:32:37 10/11/2024 10/11/2024 KUB results reviewed and continues to show small bilateral nonobstructing renal stones. We discussed kidney stone prevention with adequate hydration, reduced dietary intake of sodium and oxalate, increased dietary citrate. [email or web address] Not available 10/13/2024 12:26:15 05/27/2025 05/27/2025 Assessment: Left hip trochanteric bursitis with hip abduction weakness and tight IT band. Partial tear of abductors appreciated on MRI. Plan: The pathogenesis of trochanteric bursitis was discussed today. It was discussed that she is not causing damage to the joint, but this can be a very painful and limiting disorder. We discussed injections and I informed her CSI is for inflammation and not a fix to the overall problem. We discussed how bursitis is a symptom, not the problem. MRI disc is necessary to evaluate the extent of the abductor tear. When she returns with disk, we will further discuss a bursectomy or abductor repair. Pt returns today with MRI disk. Given her continued pain and limitations despite PT and other conservative methods, surgical intervention is a viable option. Pt would like to move forward with bursectomy and possible abductor repair. Ultimately, having the glutes fire properly is the intermediate fix to her problems. The indications, alternatives, risks, and benefits were fully discussed. The risks include but are not limited to infection, neurovascular injury, bleeding, persistent pain, stiffness, adhesions, heterotopic ossification, instability, blood clot, and medical problems. The duration of recovery was fully discussed. All questions were asked and answered. [email or web address] Not available 06/03/2025 07:54:23 05/28/2025 05/28/2025 Brought in her MRI today. Please see yesterday's note for full detail including MRI impression. [email or web address] Not available 05/28/2025 09:06:39 Plan of Treatment Reminders Order Date Submit Date Provider Last Modified By Organization Details Last Modified Time Details Appointments [facility] A[facility]LIA OUTPT 2024 08:30A M ANGÉLICA CROWDER MD Not available Not available Not available HOSPITAL FOLLOW-UP 2024 10:45A M CELSA CHOW PA-C Not available Not available Not available Lab urinalysi s panel, auto 2023 024 [email or web address] 4 [facility] [place] [facility], [address] [place] [address] Dr V[address] , [place], [address], 10/12/2024 05:43:35 culture, urine 2023 024 [facility] [place] [facility], [facility] [place], [address], 10/12/2024 10:22:32 Referral None recorded. Procedures None recorded. Surgeries cystoscop y, with ureterosc opy, with lithotrip sy, with insertion of ureteral stent (SURG) 2023 024 [email or web address] [facility] Professional Charges, [facility] [address], [place], [address], 07/09/2024 17:09:07 Imaging None recorded. Medication Orders hydrocodo ne 7.5 mg-acetam inophen [address] [facility]armacy #[id number], [address] [place], [address], 06/15/2024 11:34:32 ondansetr on 4 mg disintegr ating tablet [address] [facility] #[id number], [address] [place], [address], 06/15/2024 11:34:30 tamsulosi n 0.4 mg capsule [address] [id number] [address] [place], [address], 06/15/2024 11:34:29 Patient TargetsNo targets recorded. Patient Instructions Encounter Date Encounter Id Patient Instructions Last Modified By Organization Details Last Modified Time 06/07/2024 [id number] learning about healthy weight [email or web address] Not available 06/10/2024 18:52:22 06/15/2024 [id number] learning about depression Not available 06/15/2024 11:32:39 Reason for Referral None Reported. Results Created Date Observation Date Name Description Value Unit Range Abnormal Flag Note LastModifiedBy Organization Detail LastModifiedTime 10/11/2010/15/2024 URINE CULTU RE urine culture COLON Y COUNT : > 100,0 00 CFU/M L Three or more isola molina; mixed uroge nital segun . Not Available [facility] [address] [place], [address], 10/15/2024 09:23:01 10/11/2010/11/2024 urina lysis panel , auto Unknown Analyte Clean Catch Not Available [facility] [facility] With [address], [place], [address], 10/11/2024 16:43:25 10/11/20 24 10/11/2024 urina lysis panel , auto Unknown Analyte Yellow Not Available [facility] Extended Services With [address], [place], [address], 10/11/2024 16:43:25 10/11/20 24 10/11/2024 urina lysis panel , auto Unknown Analyte Clear Not Available [facility] Extended Services With [address], [place], [address], 10/11/2024 16:43:25 10/11/20 24 10/11/2024 urina lysis panel , auto Unknown Analyte 1.010 Not Available [facility] Extended Services With [address] Epstein, [place], [address], 10/11/2024 16:43:25 10/11/20 24 10/11/2024 urina lysis panel , auto Unknown Analyte 1.003- 1.035 Not Available [facility] With [address], [place], [address], 10/11/2024 16:43:25 10/11/20 24 10/11/2024 urina lysis panel , auto Unknown Analyte 7.0 Not Available [facility] Extended Services With [address] Epstein, [place], [address], 10/11/2024 16:43:25 10/11/20 24 10/11/2024 urina lysis panel , auto Unknown Analyte 5.0-8. 0 Not Available [facility] Services With [address], [place], [address], 10/11/2024 16:43:25 10/11/20 24 10/11/2024 urina lysis panel , auto Unknown Analyte 500 Pati/ul (++) Not Available [facility] Services With [address] Epstein, [place], [address], 10/11/2024 16:43:25 10/11/20 24 10/11/2024 urina lysis panel , auto Unknown Analyte Negati ve Not Available [facility] With [address] [place], [address], 10/11/2024 16:43:25 10/11/20 24 10/11/2024 urina lysis panel , auto Unknown Analyte Negati ve Not Available [facility] With [address] Epstein, [place], [address], 10/11/2024 16:43:25 10/11/20 24 10/11/2024 urina lysis panel , auto Unknown Analyte Negati ve Not Available [facility] With [address] Epstein, [place], [address], 10/11/2024 16:43:25 10/11/20 24 10/11/2024 urina lysis panel , auto Unknown Analyte Negati ve Not Available [facility] With [address] Epstein, [place], [address], 10/11/2024 16:43:25 10/11/20 24 10/11/2024 urina lysis panel , auto Unknown Analyte Negati ve Not Available [facility] With [address] Epstein, [place], [address], 10/11/2024 16:43:25 10/11/20 24 10/11/2024 urina lysis panel , auto Unknown Analyte Normal Not Available [facility] Extended Services With [address] [place], [address], 10/11/2024 16:43:25 10/11/20 24 10/11/2024 urina lysis panel , auto Unknown Analyte Normal Not Available [facility] Extended Services With [address] Epstein, [place], [address], 10/11/2024 16:43:25 10/11/20 24 10/11/2024 urina lysis panel , auto Unknown Analyte Negati ve Not Available [facility] With [address] [place], [address], 10/11/2024 16:43:25 10/11/20 24 10/11/2024 urina lysis panel , auto Unknown Analyte Negati ve Not Available [facility] Extended Services With [address] [place], [address], 10/11/2024 16:43:25 10/11/20 24 10/11/2024 urina lysis panel , auto Unknown Analyte Normal Not Available [facility] Extended Services With [address] [place], [address], 10/11/2024 16:43:25 10/11/20 24 10/11/2024 urina lysis panel , auto Unknown Analyte Normal 1 mg/dl Not Available [facility] Services With [address] [place], [address], 10/11/2024 16:43:25 10/11/20 24 10/11/2024 urina lysis panel , auto Unknown Analyte Negati ve Not Available [facility] With [address] [place], [address], 10/11/2024 16:43:25 10/11/20 24 10/11/2024 urina lysis panel , auto Unknown Analyte Negati ve Not Available [facility] With [address] [place], [address], 10/11/2024 16:43:25 10/11/20 24 10/11/2024 urina lysis panel , auto Unknown Analyte Negati ve Not Available [facility] [facility] [address], [place], [address], 10/11/2024 16:43:25 10/11/20 24 10/11/2024 urina lysis panel , auto Unknown Analyte Negati ve Not Available [facility] [place] [facility] [address] Epstein, [place], [address], 10/11/2024 16:43:25 06/15/20 24 06/15/2024 CT, abdom en + pelvi s, w/o contr ast No observ ation record ed. [email or web address] [facility] (Radiology) [address] [place], [address], 06/15/2024 11:35:22 06/18/20 24 06/18/2024 XR, abdom en, 1 view No observ ation record ed. [email or web address] [place] [address] Centralized Scheduling [address] [place], [address], 06/22/2024 09:05:33 10/12/20 24 10/08/2024 XR, abdom en, 1 view No observ ation record ed. [facility] [address] [place], [address], 10/16/2024 17:29:52 05/27/20 25 05/27/2025 XR, hip, unila teral , 2 or 3 view [facility] [address] [place] [address] [employer] t Name: JAYA PRESCOTTORD Eleno bautista : 984 Eleno bautista [address] Aleksandra carrera [facility] er: ALISON KAMARAH EXAM DATE: 2024 EXAM: XR LT HIP UNILAT ERAL, 2 OR 3 VWS COMPAR GABY: None. HISTOR Y: Left hip pain. FINDIN GS: No fractu re is identi fied. There are mild degene rative change s in the left hip. There is minima l to mild medial joint space loss. There is mild margin al spurri ng. Limite d visual izatio n of the contra latera l hip demons trates mild degene rative change . IMPRES ILDEFONSO: 1. There are mild degene rative change s in the left hip. Interp reted By: Yenni pinto MD Electr on ly Signed By: Yenni pinto MD on 025 1:11 PM [email or web address] [facility]iology [address] [place], [address], 05/30/2025 11:19:46 05/27/20 25 04/30/2025 MRI, hip, w/o contr ast No observ ation record ed. [email or web address] Not Available 11/2024 08:11:29 Result Notes Documentation Provider Name and Address Organization Details Recorded Time Xr, Hip, Unilateral, 2 Or 3 View : [facility] [address] [place] [address] Patient Name: CELINE MARKS Patient : [id number] Patient Ordering Provider: ANGÉLICA CROWDER EXAM DATE: 05/27/2025 EXAM: XR LT HIP UNILATERAL, 2 OR 3 VWS COMPARISON: None. HISTORY: Left hip pain. FINDINGS: No fracture is identified. There are mild degenerative changes in the left hip. There is minimal to mild medial joint space loss. There is mild marginal spurring. Limited visualization of the contralateral hip demonstrates mild degenerative change. IMPRESSION: 1. There are mild degenerative changes in the left hip. Interpreted By: Hira Miller MD Andra Watson [facility] 05/30/2025 11:19:46 Problems Name Problem SNOMED Code Status Onset Date Resolution Date Notes Provider Name and Address Organization Details Recorded Time Kidney stone 42011707 Active 017 Dariel Rojo [facility] 09/08/2017 15:24:19 Problem Notes None recorded. Procedures Surgical History Date Name Laterality Status Provider Name and Address Organization Details Recorded Time 3 Thyroid Surgery completed Dariel Rojo [facility] 04/21/2023 14:01:41 3 lobectomy of thyroid gland completed Kareen Sci [facility] 02/11/2023 14:40:26 1 EXTRA CORPOREAL SHOCKWAVE LITHOTRIPSY (SURG) completed [facility] 08/26/2022 15:15:13 9 CYSTOSCOPY, WITH URETEROSCOPY, WITH LITHOTRIPSY, WITH INSERTION OF URETERAL STENT (SURG) completed [facility] 10/10/2019 16:27:49 9 CYSTOSCOPY, WITH URETEROSCOPY, WITH LITHOTRIPSY, WITH INSERTION OF URETERAL STENT (SURG) completed [facility] 12/07/2019 13:05:02 7 Kidney Stones completed Dariel Rojo [facility] 09/08/2017 15:24:36 7 CYSTOSCOPY, WITH URETEROSCOPY, WITH LITHOTRIPSY, WITH INSERTION OF URETERAL STENT (SURG) completed JOMAR JENKINS MD [address] [place] [address], [address] 06/04/2017 10:13:25 [facility] 14:07:46 Unlisted px accessory sinus [facility] 01/20/2017 14:07:59 Imaging Results None recorded. Procedure Notes None recorded. Medical Equipment None Reported. Allergies Allergen ID Allergen Name Allergen Category Reaction Reaction Severity Criticality Documentation Date Start Date Code Code System Note Provider Name and Address Organization Details Recorded Time 008978 Product containin g penicilli n (product) medicatio n Not available Not available Not available 01/20/2017 97723 8001 SNOMED Deseriee Cowan [facility] 7 14:04:16 745985 Keflex medicatio n Not available Not available Not available 06/10/202216709 7 RxNorm Dariel Rojo [facility] 2 13:34:49 Medications Name Sig [...] MOUTH TWICE A DAY X 10 DAYS active Not Available Not Available No t Available ropinirole 1 mg tablet TAKE 1 TABLET BY MOUTH EVERY DAY active Not Available Not Available No t Available labetalol 200 mg tablet 01/12 completed [...] TAKE 1 TABLET BY MOUTH THREE TIMES A DAY FOR 10 DAYS active Not Available Not Available No t Available fluconazole 150 mg tablet PLEASE SEE ATTACHED FOR DETAILED DIRECTION S active Not Available Not Available No t Available benzonatate 200 mg capsule 10/30 completed Not Available Not Available Not Available doxepin 25 mg capsule TAKE 1 CAPSULE BY MOUTH EVERY DAY AT BEDTIME 06/07 completed Not Available Not Available Not Available clarithromy kate 500 mg tablet 06/01 completed Not Available Not Available Not Available hydrocodone 5 mg-acetamin ophen 325 mg tablet TAKE 1 TABLET BY MOUTH EVERY 4 HOURS NEEDED FOR 3 DAYS active Not Available Not Available No t Available ondansetron HCl 8 mg tablet TAKE 1 TABLET BY MOUTH TWICE A DAY FOR 3 DAYS active Not Available Not Available No t Available fluconazole 200 mg tablet 01/12 completed [...] Not Available Not Available No t Available amlodipine 5 mg tablet TAKE 1 [...] MOUTH EVERY 6 HOURS NEEDED FOR PAIN active Not Available Not Available No t Available ondansetron 8 mg disintegrat ing tablet [...] 4 hours by oral route as needed. active Not Available Not Available No t Available zafirlukast 20 mg tablet TAKE 1 [...] Available Flonase 50 mcg/Actuati on nasl susp [place] 1 spray every day by intranasa l [...] Available 12/17 () 1 mg-20 mcg tablet 10/30 completed Not [...] Not Available Not Available No t Available glycopyrrol ate 06/06 completed Not Available [...] Not Available Not Available No t Available Xarelto 06/07 completed Not Available Not Available [...] Not Available Not Available Not Available Afluria (PF) 45 mcg(15 mcg x 3)/0.5 mL [...] Available Not Available Not Available Flucelvax Quad 1251-4497 (PF) 60 mcg (15 mcg x 4)/0.5 [...] and Address Organization Details Last Updated DateTime 05/27/2025 170.18 cm 39.9 kg/m2 640626.05 madie Mcqueen [facility] 05/27/2025 13:17:00 Date Recorded Body height Body mass index (BMI) Body weight Provider Name and Address Organization Details Last Updated DateTime 05/28/2025 170.18 cm 39.9 kg/m2 661244.05 madie Mcqueen [facility] 05/28/2025 08:36:28 Date Recorded Body height Body mass index (BMI) Body weight Provider Name and Address Organization Details Last Updated DateTime 06/07/2024 170.18 cm 37.6 kg/m2 168281.17 g Dariel Rojo [facility] 06/07/2024 16:27:59 Date Recorded Body height Body mass index (BMI) Body weight Provider Name and Address Organization Details Last Updated DateTime 06/15/2024 170.18 cm 37.6 kg/m2 446112.17 madie Mora [facility] 06/15/2024 11:17:32 Date Recorded Body height Body mass index (BMI) Body weight Provider Name and Address Organization Details Last Updated DateTime 10/11/2024 170.18 cm 37.6 kg/m2 021504.17 madie Rojo [facility] 10/11/2024 16:21:07 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 Question Answer Notes LastModified by [employer] Details LastModified Time Tobacco Smoking Status [facility] 01/20/2017 14:07:34 How Much Tobacco Do You Chew? None [email or web address] Information not available 10/08/2019 What Was The Date Of Your Most Recent Tobacco Screening? 10/11/2024 [email or web address] Information not available 10/11/2024 How Much Tobacco Do You Smoke? No [email or web address] Information not available 10/08/2019 Sex: Female Functional Status Question Answer Note LastModified by Organizat ion Details LastModified Time What is your level of alcohol consumption? Occasional [email or web address] Information not available 01/20/2017 Mental Status None recorded. Family History Relationship Description Onset Age of this Age Resolved Age Notes LastModified by Organization Details LastModified Time Unspecified Relation Diabetes mellitus magali Not available 2016 14:07:17 Unspecified Relation Family history of malignant neoplasm magali Not available 2016 14:07:23 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 Condition [...] SNOMED-CT Code Diagnosis ICD10 Code Diagnosis Note [id number] JOMAR JENKINS MD [facility] [address] [place] [address] 01/20/2017 13:35:35 01/27/2017 18:29:55 Recurrent urinary tract infection 084873213 N39.0 Kidney stone 84357988 N2 0.0 [id number] JOMAR JENKINS MD [facility] [address] [place] [address] 03/17/2017 15:53:55 03/29/2017 13:59:25 Kidney stone 93803103 N20.0 [id number] JOMAR JENKINS MD [facility] [address] [facility] [place] [address] 0 05/30/2017 13:46:27 05/30/2017 16:39:35 Ureteric stone 41357349 N20.1 [id number] JOMAR JENKINS MD [facility] [address] [place] [address],[address] [place] [address] 0 06/06/2017 14:01:34 06/15/2017 11:26:11 Kidney stone 77156919 N20.0 [id number] JOMAR JENKINS MD SURGERY SCHEDULE [address] [place] [address] 09/06/2017 12:02:35 09/06/2017 12:05:22 Postoperative pain 815159455 G89.18 [id number] JOMAR JENKINS MD [place] [address] [place] [address] 09/08/2017 15:11:16 09/16/2017 14:12:36 Urinary tract infectious disease 13776915 N39.0 Kidney stone 93061941 N2 0.0 [id number] JOMAR JENKINS MD [facility] [address] [place] [address] 8 01/12/2018 16:03:14 01/19/2018 17:57:28 Kidney stone 97643570 N20.0 [id number] JOMAR JENKINS MD [facility] [address] [place] [address] 8 04/13/2018 16:18:20 04/19/2018 10:23:26 Kidney stone 97924371 N20.0 Female str ess incontinence 08299876 N39.3 [id number] JOMAR JENKINS MD SURGERY SCHEDULE [address] [place] [address] 05/02/2018 12:37:08 05/02/2018 12:43:17 Postoperative pain 567540253 G89.18 Postoperative nausea 645 06163 R11.0 [id number] JOMAR JENKINS MD [facility] [address] [place] [address] 8 06/01/2018 14:03:58 06/08/2018 09:18:51 Female stress incontinence 13497450 N39.3 [id number] JOMAR JENKINS MD [facility] [address] [place] [address] 8 07/13/2018 15:58:52 08/01/2018 08:28:57 Female stress incontinence 58302414 N39.3 Kidney stone 30654572 N2 0.0 [id number] JOMAR JENKINS MD [facility] [address] [place] [address] 11/06/2018 14:39:03 11/06/2018 16:18:12 Kidney stone 18412256 N20.0 [id number] JOMAR JENKINS MD [facility] [address] [place] [address] 8 01/18/2019 16:46:50 01/29/2019 09:50:19 Kidney stone 02996189 N20.0 [id number] JOMAR JENKINS MD [facility] [address] [place] [address] 8 06/21/2019 13:22:40 06/22/2019 11:29:21 Kidney stone 59263290 N20.0 [id number] JOMAR JENKINS MD [facility] [address] [facility] [address] [facility] [facility] [facility] [place] [address] 0 10/08/2019 14:40:47 10/08/2019 15:37:31 Renal colic 3191496 N23 Nausea 721265591 R11.0 Kidney stone 97537415 N2 0.0 [id number] JOMAR JENKINS MD [facility] [address] [place] [address] 8 10/18/2019 15:30:34 10/29/2019 09:17:56 Kidney stone 84630793 N20.0 [id number] JOMAR JENKINS MD [facility] [address] [address] [facility] [facility] [facility] [place] [address] 0 03/06/2020 10:52:08 03/06/2020 11:57:49 Kidney stone 14399665 N20.0 [id number] JOMAR JENKINS MD [facility] [address] [place] [address] 10/30/2020 16:09:29 10/31/2020 09:32:29 Urinary tract infectious disease 69374277 N39.0 Kidney stone 81167146 N2 0.0 [id number] JOMAR JENKINS MD [facility] [address] [address] [facility] [facility] [place] [address] 0 02/17/2021 10:10:36 02/17/2021 11:10:26 Kidney stone 12159325 N20.0 Nausea 984616361 R11.0 [id number] JOMAR JENKINS MD [facility] [address] [place] [address] 8 04/23/2021 15:42:16 04/24/2021 16:47:52 Kidney stone 57699641 N20.0 Female str ess incontinence 53941927 N39.3 [id number] JOMAR JENKINS MD [facility] [address] [place] [address] 8 05/28/2021 13:34:45 06/03/2021 13:36:03 Kidney stone 99293068 N20.0 [id number] JOMAR JENKINS MD [facility] [address] [place] [address] 8 09/10/2021 15:48:39 09/10/2021 20:03:00 Kidney stone [id number] N20.0 [id number] JOMAR JENKINS MD [facility] [address] [place] [address] 8 03/11/2022 15:58:28 03/15/2022 18:21:01 Urinary tract infectious disease 66607163 N39.0 Kidney stone [id number] N2 0.0 [id number] JOMAR JENKINS MD [facility] [address] [place] [address] 8 06/10/2022 13:22:52 06/11/2022 14:23:38 Urinary tract infectious disease 71510484 N39.0 Kidney stone 18083131 N2 0.0 [id number] JOMAR JENKINS MD [facility] [address] [place] [address] 8 10/07/2022 16:57:48 10/14/2022 14:35:22 Kidney stone 77522961 N20.0 Urinary tr act infectious disease 19003357 N39.0 [id number] EMILE JAIMES MD DC ENT [address] [place] [address] 02/11/2023 14:16:48 02/11/2023 15:13:01 Thyroid nodule 724953735 E04.1 02/11/2023 - soft incision, clean and intact; healing well with no signs of infections [id number] JOMAR JENKINS MD [facility] [address] [place] [place] [address] 8 04/21/2023 13:29:14 04/21/2023 16:03:14 Kidney stone 82439893 N20.0 Renal colic 1622183 N23 [id number] JOMAR JENKINS MD [facility] [address] [place] [address] 10/27/2023 16:02:00 10/31/2023 18:42:43 Kidney stone 02739631 N20.0 Renal colic 7500606 N23 Urinary tr act infectious disease 16472409 N39.0 [id number] JOMAR JENKINS MD [facility] [address] [place] [address] 8 12/22/2023 15:42:28 12/22/2023 18:56:41 Kidney stone 11003672 N20.0 Renal colic 7084927 N23 Urinary tr act infectious disease 50167161 N39.0 [id number] JOMAR JENKINS MD [facility] [address] [place] [address] 8 06/07/2024 15:09:31 06/07/2024 19:10:00 Kidney stone 88028163 N20.0 Renal colic 1642304 N23 [id number] JOMAR JENKINS MD [facility] [address] [place] [address] RD,[address] [place], [place] [address] 06/15/2024 11:06:59 06/15/2024 11:38:33 Ureteric stone 86096202 N20.1 Renal colic 9541795 N23 [id number] JOMAR JENKINS MD [facility] [address] [place] [address] 8 10/11/2024 16:03:12 10/11/2024 18:42:35 Urinary tract infectious disease 55083037 N39.0 Kidney stone 37770788 N2 0.0 [id number] ANGÉLICA CROWDER MD [facility] [place] [address] [place], [place] [address] 05/27/2025 12:57:42 05/27/2025 13:47:09 Trochanteric bursitis of left hip 7315362773 03953 M70.62 Tendinitis of left gluteal tendon 1664965587 99757 M76.02 [id number] ANGÉLICA CROWDER MD [facility] [address] [place] [address] 05/28/2025 08:32:24 05/28/2025 08:55:59 Health Concerns Section Related Observation LastModified by Organization Detai ls LastModified Time None Recorded Concern Status LastModified by Organization Details LastModified Time None Recorded Advance Directives Directive None Recorded Payers Insurance Date Sequence Insurance Name Policy Number Policy Renee Covered Member ID Renee Member ID Guarantor Name 03/30/2021 PAYMENT PLAN Celine Marks 06/09/2025 1 [place] [id number] Celine F Selina [id number] Celine Marks Notes Date Note Type Note Provider Name and Address Organization Details Recorded Time 06/07/2024 text/html 39-year-old gareth brown in the office for follow-up evaluation of urolithiasis status post ESWL, October 2023. She has been taking potassium citrate for kidney stone prevention. No current flank pain or abdominal pain. KUB from 04/23/2024 shows tiny left renal stone and 2 right renal stones, less than 4 mm. JOMAR JENKINS MD [address] [place] [address], [phone], [facility] 06/10/2024 18:53:11 06/15/2024 text/html 39-year-old gareth brown in the office for follow-up evaluation of urolithiasis She has history of ESWL, October 2023. She has been taking potassium citrate for kidney stone prevention. Right flank pain since [address] AP ([facility]) shows 3 mm right proximal ureteral stone. KUB from 04/23/2024 shows tiny left renal stone and 2 right renal stones, less than 4 mm. JOMAR JENKINS MD [address] [place] [address], [address], [facility] 06/15/2024 11:34:42 10/11/2024 text/html 39-year-old gareth brown [...] this week has not been faxed from [facility] and we are awaiting results for review. JOMAR JENKINS MD [facility] [place], [address], [facility] 10/13/2024 12:26:31 05/27/2025 text/html WHAT: Left Hip.WHEN: 8 monthsHOW: no injurySYMPTOMS:Sharron n is intermittent dull ache in nature.The patient does not have numbness or tinglingThey do not have popping and clickingThey are not able to sleep comfortably with this injury.Their pain is made better with resting the limbTheir pain is exacerbated by sitting, pressureOverall, the patient would say that their pain is not well-controlled at this time PAIN: 7 /10, at worstX-RAY: [facility], 2 monthsINJECTION: 2 CSI with adequate relief ANGÉLICA CROWDER MD [address] [place], [address], [facility] 06/03/2025 07:55:33 05/28/2025 text/html Patient comes in today for FU Left Hip.Patient states they are same than last visit.Brought in her MRI today. Please see yesterday's note for full detail including MRI impression. ANGÉLICA CROWDER MD [address] [place], [address], [facility] 05/28/2025 09:06:59 OBGyn Episode No OBEpisode recorded.
--- OUTSIDE RECORDS SUMMARY | 2025-06-10 10:28 | XMS_ITS | Encounter Summary ---
Author Organization [employer] ([place], [place], [place], [place]) Address [address] [place] [address] Care Team Providers Care Grinder Operator Surface Tool Name Role Phone Tyrell Magana MD Primary Care Provider [phone] Encounter Details Date Type Department Care Team [...] Description 06/12/2025 12:02 PM EDT Hospital Encounter [facility] ([place], [place]) Operating Room [address] [place] [address] Vaibhav Chester MD [address] [place] [address] 06/12/2025 12:02 PM EDT - 06/12/2025 1:[address] [facility] ([place], [place]) Operating Room [address] [place] [address] Vaibhav Chester MD [address] [place] [address] (LEFT HIP ARTHROSCOPIC BURSECTOMY, POSSIBLE ABDUCTOR REPAIR) Scheduled Procedures Name Priority Associated Diagnoses Date/Ti me BURSECTOMY, HIP Trochanteric bursitis, left hip 06/12/2025 12:02 PM EDT documented as of this encounter Visit Diagnoses Not on filedocumented in this encounter Care Teams Grinder Operator Surface Tool Relationship Specialty Start Date End Date Tyrell Magana MD [address] [place] [address] [place] [address] PCP - General Family Medicine 11/15/23 documented as of this encounter
--- OUTSIDE RECORDS SUMMARY | 2025-06-10 10:28 | XMS_ITS | Clinical Summary ---
Author Organization Healthcare Address [address] [place] [address] Care Team Providers Care Independent Freight Agent Name Role Phone Oirana Murcia Primary Care Provider [phone] Family History 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 Relation Name Comments [...] Not on file Insurance ANTHEM Care Teams Independent Freight Agent Relationship Specialty Start Date End Date Oriana Murcia PA [address] [place] [address] PCP - General 04/10/21
--- OUTSIDE RECORDS SUMMARY | 2025-06-10 10:29 | XMS_ITS | Continuity of Care Document ---
Author Organization [facility],, Main Office Address [address] [place] [address] Assessment Encounter Date Assessment Date Assessment LastModified by Organization Details LastModified Time 04/30/2025 04/30/2025 Patient presents for evaluation. History and physical exam indicate: aub. Annual gynecological exam performed. Patient will come back in a year unless there are new symptoms. [email or web address] Not available 05/18/2025 20:22:59 Plan of Treatment Reminders Order Date Submit Date Provider Last Modified By Organization Details Last Modified Time Details Appointments ESTABLISH ED PATIENT 15 2024 10:00A M JASMINE Lira Not available Not available Not available Lab None recorded. Referral None recorded. Procedures None recorded. Surgeries None recorded. Imaging None recorded. Medication Orders None recorded. Patient TargetsNo targets recorded. Patient Instructions Encounter Date Encounter Id Patient Instructions Last Modified By Organization Details Last Modified Time 04/30/2025 [id number] heavy menstrual periods: care instructions [email or web address] Not available 04/30/2025 15:35:58 Conservative and surgical options discussed, alternatives reviewed. Risks associated with each were reviewed. All questions answered. Pros and cons were reviewed. State with vasectomy [email or web address] Not available 05/18/2025 20:24:28 Reason for Referral None Reported. Procedures Surgical History Date Name Laterality Status Provider Name and Address Organization Details Recorded Time robotic assisted surgery completed JASMINE Lira [address], [place], [address], [facility], 05/18/2025 18:38:06 04/09/202 5 Date of Last Pap Smear completed [facility], 03/06/2025 09:53:36 4 Date of Last Mammogram completed [facility], 03/06/2025 10:00:47 Kidney endoscopy completed JASMINE Lira [address], [place], [address], [facility], 01/14/2020 11:20:09 Imaging Results None recorded. Procedure Notes None recorded. Medical Equipment None Reported. Allergies Allergen ID Allergen Name Allergen Category Reaction Reaction Severity Criticality Documentation Date Start Date Code Code System Note Provider Name and Address Organization Details Recorded Time 794 Product containin g penicilli n (product) medicatio n anaphylax is severe Not available 12/12/2017 [address]505 8001 SNJAMIE Garcia [facility], 8 11:40:08 Medications [...] completed Not Available Not Available Not Available [facility]12/17 (21) 1 mg-20 mcg tablet TAKE 1 [...] Relief 50 mcg/actuati on nasal spray,suspe nsion [place] 1 spray every day by intranasa l [...] Available Not Available Not Available Flucelvax Quad 7933-8312 (PF) 60 mcg (15 mcg x 4)/0.5 [...] Updated DateTime 5 167.64 cm 43.4 kg/m2 245990. 35 g 98 /min 97 [degF] 116/91 mm[Hg] Nicole King [facility], 5 13:15:01 Date Recorded Body height Body mass index (BMI) Body weight Heart rate Body temperature Systolic And Diastolic Provider Name and Address Organization Details Last Updated DateTime 5 167.64 cm 44.2 kg/m2 522840. 31 g 93 /min 96.6 [degF] 147/100 mm[Hg] [facility], 5 09:49:48 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 Question Answer Notes LastModified by Organizat ion Details LastModified Time Tobacco Smoking Status Never Smoker Not Available [facility] 09/23/2020 03:20:23 Able To Swim? Yes Information not available 12/12/2017 Accident Related Injury No Information not available 12/12/2017 Do You Have An Advance Directive? No [id number] Information not available 09/23/2020 How Many Years Have You Consumed Alcohol? 12 [id number] Information not available 09/23/2020 Animal Exposure? Yes Informat ion not available 12/12/2017 Are You Currently Sexually Active With Anyone Who Has Traveled (within The Last 12 Weeks) To A Zika-affected Area? No [id number] Information not available 09/23/2020 Do You Wear A Helmet When Biking? No [id number] Information not available 09/23/2020 Are You Blind Or Do You Have Difficulty Seeing? No [id number] Information not available 09/23/2020 What Is Your Level Of Caffeine Consumption? Occasional [id number] Information not available 09/23/2020 How Much Tobacco Do You Chew? None [id number] Information not available 09/23/2020 Concerns About Meeting Basic Needs (food, Housing, Heat, Etc)? No Information not available 12/12/2017 Are You Deaf Or Do You Have Serious Difficulty Hearing? No [id number] Information not available 09/23/2020 What Type Of Diet Are You Following? REGULAR [id number] Information not available 09/23/2020 Which Illicit Or Recreational Drugs Have You Used? None [id number] Information not available 09/23/2020 Education Post Graduate Information not available 12/12/2017 Family History Of Heart Disease? Yes Information not available 12/12/2017 Have There Been Any Changes To Your Family Or Social Situation? No [id number] Information no t available 09/23/2020 Are There Any Guns Present In Your Home? Yes [id number] Information not available 09/23/2020 Hard Of Hearing Or Deaf In One Or Both Ears? No Information not available 12/12/2017 Legally Blind In One Or Both Eyes? No Information no t available 12/12/2017 Live Alone Or With Others? With Others Information not available 12/12/2017 Do You Have A Medical Power Of Refractory Furnace Designer? No [id number] Information not available 09/23/2020 What Was The Date Of Your Most Recent Tobacco Screening? 12/18/2018 [id number] Information not available 09/23/2020 How Many Children Do You Have? 0 [id number] Information not available 09/23/2020 Performs Monthly Self-breast Exam? No Information no t available 12/12/2017 Do You Have Any Pets? Yes [id number] Information not available 09/23/2020 Difficulty Reading? No Information not available 12/12/2017 Seat Belts Used Routinely Yes Information not available 12/12/2017 Are You Sexually Active? Yes [id number] Information not available 09/23/2020 Smoke Alarm In Home Yes Information not available 12/12/2017 Do You Have Smoke And Carbon Monoxide Detectors In Your Home? Yes [id number] Information not available 09/23/2020 Are You Passively Exposed To Smoke? No Information no t available 12/12/2017 Are There Any Smokers In Your House? No Information not available 12/12/2017 How Much Tobacco Do You Smoke? No [id number] Information not available 09/23/2020 General Stress Level Medium Information not available 12/12/2017 Sun Exposure Occasional Information not available 12/12/2017 Do You Use Sunscreen Routinely? Yes [id number] Information not available 09/23/2020 TB Risk Low Information no t available 12/12/2017 Has Tobacco Cessation Counseling Been Provided? No [id number] Information not available 09/23/2020 Difficulty Watching TV? No Information not available 12/12/2017 Do You Have Difficulty Walking Or Climbing Stairs? No [id number] Information not available 09/23/2020 Sex: Unknown Functional Status Question Answer Note LastModified by Organizat ion Details LastModified Time What is your level of alcohol consumption? Occasional [id number] Information not available 09/23/2020 Are you currently employed? Yes [id number] Information not available 09/23/2020 Do you have transportation difficulties? No [id number] Information not available 09/23/2020 Are you able to walk? YESWOREST [id number] Information not available 09/23/2020 Do you have difficulty doing errands alone? No [id number] Information not available 09/23/2020 Are you able to care for yourself? 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 No [id number] Information not available 09/23/2020 What is your exercise level? Occasional [id number] Information not available 09/23/2020 Mental Status Question Answer Note LastModified by Organization D etails LastModified Time Do you have difficulty concentrating, remembering or making decisions? No [id number] Information no t available 09/23/2020 Family History Relationship Description Onset Age of this Age Resolved Age Notes LastModified by Organization Details LastModified Time Mother Hypertensive disorder [email or web address] Not available 12/12 11:47:55 Mother Diabetes mellitus [email or web address] Not available 12/12 11:48:11 Mother Family history of malignant neoplasm mantle cell lympho ma [email or web address] Not available 09/15/2020 08:26:46 Mother Kidney disease [...] history of malignant neoplasm cervic al cancer [id number] Not available 09/15/2020 08:26:46 Sister Headache [email or web address] Not availab le 12/12/2017 11:49:26 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 Condition Response Coronary Artery Disease N Other N Gout N Kidney Stones Y Blood Diseases N Hyperthyroidism N Enlarged Prostate N Blood Transfusion N Dermatologic Disorders N Depression N COPD N Gestational Diabetes N Anxiety Disorder N Muscle, Joint, or Bone Problems N Autoimmune disease N Obesity N Vision or Eye Problems N Arthritis N Polyps N Infertility N Mental Disorder N Cancer N Varicosities N Stroke N Neurologic/Epilepsy N Headaches N Fibromyalgia N Kidney Disease N Heart Problems N Ear or Hearing Problems N Hospitalizations N Acne N Skin Problems N Eating Disorder N MRSA exposure N Heartburn N Constipation N Art (IVF or FET) N Bladder Problems N Bleeding Disorder N Tuberculosis N AIDS/HIV N G.E.R.D N Asthma N Trauma/Violence N Hepatitis N Pulmonary Embolism N Chronic Ear Infections N Chicken Pox N Autism Spectrum Disorder (ASD) N Thrombophilias N Allergies (Food, seasonal, environmental ) N Colon Cancer N Breast Cancer N Drug/Latex Allergies/Reactions N Hypothyroidism N Lung Disease N Defects or Inherited Disease N Developmental [...] Failure (CHF) N Hyperlipidemia N Eczema N Abuse/Domestic Violence N Diverticulitis N Depression/ depression N Heart Disease N [...] virus, quadrivalent, preservative 7 completed Not Available [facility] 12/29/2019 02:17:09 Past Encounters Encounter ID Performer Location Encounter Start Date Encounter Closed Date Diagnosis/Indication Diagnosis SNOMED-CT Code Diagnosis ICD10 Code Diagnosis Note [id number] Dandy Duque, Main Office [address] [place] [address] 04/30/2025 13:10:48 04/30/2025 14:21:57 Menorrhagia 133352494 N92.0 Pain in pelvis 99533531 R10.2 Health Concerns Section Related Observation LastModified by Organization Detai ls LastModified Time None Recorded Concern Status LastModified by Organization Details LastModified Time None Recorded Payers Encounter Date Sequence Insurance Name Policy Number Policy Renee Covered Member ID Renee Member ID Guarantor Name 04/30/2025 1 [place] [id number] Celine Dc [id number] Celine Dc Notes Date Note Type [...] laparoscopy, hysteroscopy, D&C, novasure endometrial ablation. Dandy Duque DO [address], [place], [address], [facility], 05/18/2025 20:27:12 05/16/2025 text/html Post-OpReported bypatient.Onset/Poli g:date of surgery: (05/06/2025) Quality:procedure: (robotic laser [...] lower extremity edema/pain; no dysuria/urinary symptoms Dandy Duque DO [address], [place], [address], [facility], 2025 12:38:02 OBGyn Episode No OBEpisode recorded.
--- OUTSIDE RECORDS SUMMARY | 2025-06-10 10:29 | XMS_ITS | Encounter Summary ---
Author Organization [facility] Address [address] [place] [address] Care Team Providers Care Rental Clerk Name Role Phone Dustin Gomez MD Primary Care Provider Unavailabl e Doctor, Vicki Primary Care Provider Unavailabl e Encounter Details Date Type Department Care Team (Late st Contact Info) Description 07/04/2009 Abstract Initial Department [address] [facility] [place] [address] [place], [place] 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 Tobacco Use Types Packs/Day [...] on filedocumented in this encounter Care Teams Rental Clerk Relationship Specialty Start Date End Date Dustin Gomez MD PCP - General 08/02/08 02/11/14 Doctor, ELOISA Vides PCP - General Family Medicine 02/12/14 12/30/17 documented as of this encounter
--- OUTSIDE RECORDS SUMMARY | 2025-06-10 10:30 | XMS_ITS | Continuity of Care Document ---
Author Organization [facility],, Main [place] [address] Assessment No assessment recorded. Plan of Treatment [...] Modified By Organization Details Last Modified Time 05/06/2025 05055 heavy menstrual periods: care instructions [email or web address] Not available 2025 12:37:21 procedure [email or web address] Not available 2024 12:37:15 Reason for Referral None Reported. Procedures Surgical History Date Name Laterality Status Provider Name and Address Organization Details Recorded Time 5 robotic assisted surgery completed [address], [place], [address], [facility], 05/18/2025 18:38:06 5 Date of Last Pap Smear completed [facility], 03/06/2025 09:53:36 4 Date of Last Mammogram completed [facility], 03/06/2025 10:00:47 Kidney endoscopy completed [address], [place], [address], [facility], 01/14/2020 11:20:09 Imaging Results None recorded. Procedure Notes None recorded. Medical Equipment None Reported. Allergies Allergen ID Allergen Name Allergen Category Reaction Reaction Severity Criticality Documentation Date Start Date Code Code System Note Provider Name and Address Organization Details Recorded Time 794 Product containin g penicilli n (product) medicatio n anaphylax is severe Not available 12/12/2017 99360 8001 SNOMED Mitra Garcia [facility], [facility], 8 [...] Relief 50 mcg/actuati on nasal spray,suspe nsion Hydro 1 spray every day by intranasa l [...] Available Not Available Not Available Flucelvax Quad 8464-9729 (PF) 60 mcg (15 mcg x 4)/0.5 [...] Updated DateTime 5 167.64 cm 44.2 kg/m2 555686. 31 g 93 /min 96.6 [degF] 147/100 mm[Hg] Dave Johnson [facility], 5 09:49:48 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 Question Answer Notes LastModified by Organizat ion Details LastModified Time Tobacco Smoking Status Never Smoker Not Available [employer] 09/23/2020 03:20:23 Able To Swim? Yes Information not available 12/12/2017 Accident Related Injury No Information not available 12/12/2017 Do You Have An Advance Directive? No [id number] Information not available 09/23/2020 How Many Years Have You Consumed Alcohol? 12 [id number] Information not available 09/23/2020 Animal Exposure? Yes Informat ion not available 12/12/2017 Are You Currently Sexually Active With Anyone Who Has Traveled (within The Last 12 Weeks) To A Zika-affected Area? No [id number] Information not available 09/23/2020 Do You Wear A Helmet When Biking? No [id number] Information not available 09/23/2020 Are You Blind Or Do You Have Difficulty Seeing? No [id number] Information not available 09/23/2020 What Is Your Level Of Caffeine Consumption? Occasional [id number] Information not available 09/23/2020 How Much Tobacco Do You Chew? None [id number] Information not available 09/23/2020 Concerns About Meeting Basic Needs (food, Housing, Heat, Etc)? No Information not available 12/12/2017 Are You Deaf Or Do You Have Serious Difficulty Hearing? No [id number] Information not available 09/23/2020 What Type Of Diet Are You Following? REGULAR [id number] Information not available 09/23/2020 Which Illicit Or Recreational Drugs Have You Used? None [id number] Information not available 09/23/2020 Education Post Graduate Information not available 12/12/2017 Family History Of Heart Disease? Yes Information not available 12/12/2017 Have There Been Any Changes To Your Family Or Social Situation? No [id number] Information no t available 09/23/2020 Are There Any Guns Present In Your Home? Yes [id number] Information not available 09/23/2020 Hard Of Hearing Or Deaf In One Or Both Ears? No Information not available 12/12/2017 Legally Blind In One Or Both Eyes? No Information no t available 12/12/2017 Live Alone Or With Others? With Others Information not available 12/12/2017 Do You Have A Medical Power Of Metrology Engineer? No [id number] Information not available 09/23/2020 What Was The Date Of Your Most Recent Tobacco Screening? 12/18/2018 [id number] Information not available 09/23/2020 How Many Children Do You Have? 0 [id number] Information not available 09/23/2020 Performs Monthly Self-breast Exam? No Information no t available 12/12/2017 Do You Have Any Pets? Yes [id number] Information not available 09/23/2020 Difficulty Reading? No Information not available 12/12/2017 Seat Belts Used Routinely Yes Information not available 12/12/2017 Are You Sexually Active? Yes [id number] Information not available 09/23/2020 Smoke Alarm In Home Yes Information not available 12/12/2017 Do You Have Smoke And Carbon Monoxide Detectors In Your Home? Yes [id number] Information not available 09/23/2020 Are You Passively Exposed To Smoke? No Information no t available 12/12/2017 Are There Any Smokers In Your House? No Information not available 12/12/2017 How Much Tobacco Do You Smoke? No [id number] Information not available 09/23/2020 General Stress Level Medium Information not available 12/12/2017 Sun Exposure Occasional Information not available 12/12/2017 Do You Use Sunscreen Routinely? Yes [id number] Information not available 09/23/2020 TB Risk Low Information no t available 12/12/2017 Has Tobacco Cessation Counseling Been Provided? No [id number] Information not available 09/23/2020 Difficulty Watching TV? No Information not available 12/12/2017 Do You Have Difficulty Walking Or Climbing Stairs? No [id number] Information not available 09/23/2020 Sex: Unknown Functional Status Question Answer Note LastModified by Organizat ion Details LastModified Time What is your level of alcohol consumption? Occasional [id number] Information not available 09/23/2020 Are you currently employed? Yes [id number] Information not available 09/23/2020 Do you have transportation difficulties? No [id number] Information not available 09/23/2020 Are you able to walk? YESWOREST [id number] Information not available 09/23/2020 Do you have difficulty doing errands alone? No [id number] Information not available 09/23/2020 Are you able to care for yourself? 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 No [id number] Information not available 09/23/2020 What is your exercise level? Occasional [id number] Information not available 09/23/2020 Mental Status Question Answer Note LastModified by Organization D etails LastModified Time Do you have difficulty concentrating, remembering or making decisions? No [id number] Information no t available 09/23/2020 Family History Relationship Description Onset Age of this Age Resolved Age Notes LastModified by Organization Details LastModified Time Mother Hypertensive disorder [email or web address] Not available 12/12 11:47:55 Mother Diabetes mellitus [email or web address] Not available 12/12 11:48:11 Mother Family history of malignant neoplasm mantle cell lympho ma [email or web address] Not available 09/15/2020 08:26:46 Mother Kidney disease [...] history of malignant neoplasm cervic al cancer [email or web address] Not available 09/15/2020 08:26:46 Sister Headache [email or web address] [...] Polyps N Mental Disorder N Cancer N Stroke [...] Cancer N Lung Disease N Hypothyroidism N Developmental or Behavioral Disorders N Defects or Inherited Disease N Breast Problem N Difficulty Swallowing N Hematologic disorders N Anesthesia Complications N History of STI N Deep Vein Thrombosis N Polycystic ovary syndrome N Meniere's disease N History of abnormal pap N Endometriosis N High Cholesterol N Liver Disease N Allergies/Hayfever N Kidney Problems N Thyroid Problems N GI Problems N ADD/ADHD N Anemia N Mental Illness N Psychiatric Illness N Ovarian Cancer N Diabetes N Pulmonary (TB, Asthma) N Seizures/Epilepsy N Congestive Heart Failure (CHF) N Hyperlipidemia N Eczema N Diverticulitis N Abuse/Domestic Violence N Depression/ depression N Heart Disease N Pre-Eclampsia N Hypertension N Osteoporosis N Gynecological History Statement/Question Response [...] virus, quadrivalent, preservative 7 completed Not Available [facility] 12/29/2019 02:17:09 Past Encounters Encounter ID Performer Location Encounter Start Date Encounter Closed Date Diagnosis/Indication Diagnosis SNOMED-CT Code Diagnosis ICD10 Code Diagnosis Note [id number] Dandy Duque DO Main Office [address] [place] [address] 04/30/2025 13:10:48 04/30/2025 14:21:57 Menorrhagia 150423011 N92.0 Pain in pelvis 99198591 R10.2 [id number] Dandy Duque DO Main Office [address] [place] [address] 05/06/2025 09:53:34 05/06/2025 09:53:57 Menorrhagia 887732365 N92.0 Health Concerns Section Related Observation LastModified by Organization Detai ls LastModified Time None Recorded Concern Status LastModified by Organization Details LastModified Time None Recorded Payers Encounter Date Sequence Insurance Name Policy Number Policy Renee Covered Member ID Renee Member ID Guarantor Name 05/06/2025 1 [place] [id number] Celine Dc [id number] Celine Dc Notes Date Note Type [...] no dysuria/urinary symptoms Dandy Duque DO [address], [place], [address], [facility], 2025 12:38:02 OBGyn Episode No OBEpisode recorded.
--- OUTSIDE RECORDS SUMMARY | 2025-06-10 10:30 | XMS_ITS | Encounter Summary ---
Author Organization [employer] ([place], [place], [place], [place]) Address [address] [place] [address] Care Team Providers Care Fund Manager Name Role Phone Tyrell Magana MD Primary Care Provider +1- [phone] Encounter Details Date Type Department Care Team (Late st Contact Info) Description 10/10/2019 Transcribed Document [facility] [place] [address] ProviderBen MD [address] [place] [address] 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 Tobacco Use Types [...] Conversion Note - Ben ProviderMD - 10/10/2019 12:50 PM ATTORNEY GENERAL Patient: CELINE MARKS Age: 34 Years Sex: Female : 1985 [...] Date of Service No qualifying data available. documented in this encounter Plan of Treatment Upcoming Encounters Date Type Department Care Team (Latest Contact Info) Description 06/12/2025 12:02 PM EDT Hospital Encounter [facility] Operating Room [address] [place] [address] Vaibhav Chester MD [address] [place] [address] 06/12/2025 12:02 PM EDT - 06/12/2025 1:49 PM EDT Surgery [facility] Operating Room [address] [place] [address] Vaibhav Chester MD [facility] [place] [address] (LEFT HIP ARTHROSCOPIC BURSECTOMY, POSSIBLE ABDUCTOR REPAIR) Scheduled Procedures Name Priority Associated Diagnoses Date/Ti me BURSECTOMY, HIP Trochanteric bursitis, left hip 06/12/2025 12:02 PM EDT documented as of this encounter Visit Diagnoses Not on filedocumented in this encounter Care Teams Fund Manager Relationship Specialty Start Date End Date Tyrell Magana MD [address] [place] [address] [place] [address] PCP - General Family Medicine 11/15/23 documented as of this encounter
--- OUTSIDE RECORDS SUMMARY | 2025-06-10 10:30 | XMS_ITS | Encounter Summary ---
Author Organization [employer] ([place], [place], [place], [place]) Address [address] [place] [address] Care Team Providers Care Marine Farmer Name Role Phone Tyrell Magnaa MD Primary Care Provider +1- [phone] Encounter Details Date Type Department Care Team (Late st Contact Info) Description 10/10/2019 Transcribed Document [facility] [address] [place] [address] ProviderBen MD [address] [place] [address] 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 Tobacco Use Types [...] Cerner Conversion Note - Historical ProviderMD - 10/10/2019 3:15 PM RHEUMATOLOGY SPECIALIST [facility] [place] [address] [place] :1985 Visit [...] Follow Up Instructions: Schedule follow up with [facility] Follow Up Instructions: F/U 1 weeks Follow Up Instructions: stent care Follow-Up Appointments Follow Up with JOMAR JENKINS MD When 10/18/2019 03:45 PM EST Comments Appointment has been made JESICA SCHEDULED Where: [address] [place] [address] [employer] (1) Medications What How Much When Instructions Next Dose acetaminophen-hydrocodone (Richwood 7.5 mg-325 mg oral tablet) 1 Tablet(s) Oral Every 6 Hours as needed for for pain Duration: 3 Day(s) Printed Prescription DULoxetine (Cymbalta 60 mg oral delayed release capsule) Oral Every Day DULoxetine (Cymbalta) 60 Milligram(s) Oral Every Day ethinyl estradiol-norethindrone (Taytulla 1 mg-20 mcg oral capsule) Oral Every Day fluticasone nasal (Childrens Flonase 50 mcg/ inh nasal spray) 1 [place](s) Nasal Every Day glycopyrrolate 1 Milligram(s) Oral [...] including vitamins, herbs, eye drops, creams, and rabv-phl-jtqftei medicines. ??? Any problems you or family [...] 11/11/2001 Document Revised: 04/21/2017 Document Reviewed: 05/28/2016 [employer] Interactive Patient Education ?? 2019 [employer]. Lithotripsy, Care After This sheet gives [...] these instructions at home: Medicines ??? Take jvse-sap-xwnuare and prescription medicines only as told by [...] 12/03/2008 Document Revised: 10/05/2017 Document Reviewed: 10/05/2017 [employer] Interactive Patient Education ?? 2019 [employer] Outpatient Surgery, Adult, Care After These [...] and water are not available, use hand boom tender. ? Change your dressing as told by [...] or a bad smell. Medicines ??? Take bpwb-qyh-psvzujr and prescription medicines only as told by [...] 03/06/2017 Document Revised: 06/22/2018 Document Reviewed: 03/06/2017 [employer] Interactive Patient Education ?? 2019 [employer]. acetaminophen and hydrocodone (a SEET a MIN oh fen and mya droe KOE done) Hycet, Lorcet, Richwood, Verdrocet, Vicodin, Xodol, Zamicet What is the [...] may report side effects to FDA at 6-427-BID-6835. What other drugs will affect acetaminophen and [...] affect acetaminophen and hydrocodone, including prescription and jmcb-vkc-gqprfbv medicines, vitamins, and herbal products. Not all [...] to ensure that the information provided by [employer]. ('[employer]') is accurate, up-to-date, and complete, but no guarantee is made to that effect. Drug information contained herein may be time sensitive. [employer] information has been compiled for use by healthcare practitioners and consumers in the [place] and therefore [employer] does not warrant that uses outside of the [place] are appropriate, unless specifically indicated otherwise. [employer]'s drug information does not endorse drugs, diagnose patients or recommend therapy. [employer] drug information is an informational resource designed [...] effective or appropriate for any given patient. [employer] does not assume any responsibility for any aspect of healthcare administered with the aid of information [employer] provides. The information contained herein is not intended to cover all possible uses, directions, precautions, warnings, drug interactions, allergic reactions, or adverse effects. If you have questions about the drugs you are taking, check with your doctor, nurse or pharmacist. Copyright 5675-7857 [employer]. Version: 15.02. Revision Date: 10/02/2018. Emergency Awareness [...] Assistance with quitting is available by contacting 0-835-OCOU-NOW. This is a free resource providing counseling, [...] was given the opportunity to ask questions. Patient/Physician Neonatology Name: Patient/Physician Neonatology Signature: Relationship to Patient: Clinician/Hospital Physician Neonatology Signature: Date: Electronically signed by Cesar Raymond Conversion Production Material Coordinator Nando at 03/13/2023 7:23 PM CDT documented in this encounter Plan of Treatment Upcoming Encounters Date Type Department Care Team (Latest Contact Info) Description 06/12/2025 12:02 PM EDT Hospital Encounter [facility] Operating Room [address] [place] [address] Vaibhav Chester MD [address] [facility] [place] [address] 06/12/2025 12:02 PM EDT - 06/12/2025 1:49 PM EDT Surgery [facility] Operating Room [address] [place] [address] Vaibhav Chester MD [address] [place] [address] (LEFT HIP ARTHROSCOPIC BURSECTOMY, POSSIBLE ABDUCTOR REPAIR) Scheduled Procedures Name Priority Associated Diagnoses Date/Ti me BURSECTOMY, HIP Trochanteric bursitis, left hip 06/12/2025 12:02 PM EDT documented as of this encounter Visit Diagnoses Not on filedocumented in this encounter Care Teams Marine Farmer Relationship Specialty Start Date End Date Tyrell Magana MD [address] [facility] [address] PCP - General Family Medicine 11/15/23 documented as of this encounter
--- OUTSIDE RECORDS SUMMARY | 2025-06-10 10:30 | XMS_ITS | Encounter Summary ---
Author Organization [facility] Address [address] [place] [address] Care Team Providers Care Tree Planter Name Role Phone Dustin Gomez MD Primary Care Provider Unavailabl e Doctor, Vicki Primary Care Provider Unavailabl e Encounter Details Date Type Department Care Team (Late st Contact Info) Description 08/14/2007 Historical Encounter Global Leann Bond MD [address] [facility] [address] [place] [address] 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 Tobacco Use Types Packs/Day Years [...] on filedocumented in this encounter Care Teams Tree Planter Relationship Specialty Start Date End Date Dustin Gomez MD PCP - General 08/02/08 02/11/14 Vicki Villavicencio [place] PCP - General Family Medicine 02/12/14 12/30/17 documented as of this encounter
--- OUTSIDE RECORDS SUMMARY | 2025-06-10 10:30 | XMS_ITS | Encounter Summary ---
Author Organization [employer] ([place], [place], [place], [place]) Address [address] [place] [address] Care Team Providers Care Strategic Solutions Consultant Name Role Phone Tyrell Magana MD Primary Care Provider +1- [phone] Encounter Details Date Type Department Care Team (Late st Contact Info) Description 10/10/2019 Transcribed Document [facility] Family Medicine [address] [place] [address] ProviderBen MD [address] [place] [address] 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 Tobacco Use Types [...] - Ben ProviderMD - 10/10/2019 12:22 PM BIOPHYSICS PROFESSOR [facility] Main OR PostOp Summary Primary Physician: JOMAR JENKINS MD Finalized Date/Time: 10/10/19 15:33:31 Pt. Name: CELINE DC /Sex: 1985 Female Med Rec #: [id number] Physician: JOMAR JENKINS MD Financial #: [id number] Pt. Type: O Room/Bed: /1 Admit/Disch: 10/10/19 09:16:00 - Institution: [facility] Main OR PostOp Case Times Entry 1 In PACU II 10/10/19 14:21:00 Ready for PACU II 10/10/19 15:05:00 Discharge Discharge from PACU 10/10/19 15:22:00 II Last Modified By: RENAY ROSSI RN 10/10/19 15:23:27 Finalized By: RENAY ROSSI, RN Document Signatures Signed By: RENAY ROSSI RN 10/10/19 15:33 Electronically signed by Segundo [facility] Conversion Heat Curer Cerner at 03/13/2023 7:13 PM CDT documented in this encounter Plan of Treatment Upcoming Encounters Date Type Department Care Team (Latest Contact Info) Description 06/12/2025 12:02 PM EDT Hospital Encounter [facility] Operating Room [address] [place] [address] Vaibhav Chester MD [address] [place] [address] 06/12/2025 12:02 PM EDT - 06/12/2025 1:49 PM EDT Surgery [facility] Operating Room [address] [place] [address] Vaibhav Chester MD [address] [place] [address] (LEFT HIP ARTHROSCOPIC BURSECTOMY, POSSIBLE ABDUCTOR REPAIR) Scheduled Procedures Name Priority Associated Diagnoses Date/Ti me BURSECTOMY, HIP Trochanteric bursitis, left hip 06/12/2025 12:02 PM EDT documented as of this encounter Visit Diagnoses Not on filedocumented in this encounter Care Teams Strategic Solutions Consultant Relationship Specialty Start Date End Date Tyrell Magana MD [address] [place] [address] PCP - General Family Medicine 11/15/23 documented as of this encounter
--- OUTSIDE RECORDS SUMMARY | 2025-06-10 10:30 | XMS_ITS | Encounter Summary ---
Author Organization [employer] ([place], [place], [place], [place]) Address [address] [place] [address] Care Team Providers Care Truck Safety Inspector Name Role Phone Tyrell Magana MD Primary Care Provider +1- [phone] Encounter Details Date Type Department Care Team (Late st Contact Info) Description 10/10/2019 Transcribed Document [facility] Family Medicine [address] [place] [address] ProviderBen MD [address] [place] [address] 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 Tobacco Use Types [...] - Ben ProviderMD - 10/10/2019 12:22 PM THREAD SEPARATOR [facility] Main OR PACU Summary Primary Physician: JOMAR JENKINS MD Finalized Date/Time: 10/10/19 14:18:09 Pt. Name: CELINE DC /Sex: 1985 Female Med Rec #: [id number] Physician: JOMAR JENKINS MD Financial #: [id number] Pt. Type: O Room/Bed: /1 Admit/Disch: 10/10/19 09:16:00 - Institution: [facility] Main OR PACU I Case Times Entry 1 In PACU I 10/10/19 13:39:00 Ready for PACU 10/10/19 14:00:00 Discharge Discharge from PACU 10/10/19 14:20:00 I Last Modified By: Aisha Bone RN 10/10/19 14:17:55 [facility] Main OR PACU Acuity Entry 1 Start Time 10/10/19 14:00:00 Stop Time 10/10/19 14:20:00 Acuity Level [facility] PACU Acuity I Last Modified By: Aisha Bone RN 10/10/19 14:18:05 Finalized By: Aisha Bone RN Document Signatures Signed By: Aisha Bone RN 10/10/19 14:[address] Seg[address] [facility] Conversion Immigration Consultant Cerner at 03/13/2023 7:13 PM CDT documented in this encounter Plan of Treatment Upcoming Encounters Date Type Department Care Team (Latest Contact Info) Description 06/12/2025 12:02 PM EDT Hospital Encounter [facility] Operating Room [address] [place] [address] Vaibhav Chester MD [address] [place] [address] 06/12/2025 12:02 PM EDT - 06/12/2025 1:49 PM EDT Surgery [facility] Operating Room [address] [place] [address] Vaibhav Chester MD [address] [place] [address] (LEFT HIP ARTHROSCOPIC BURSECTOMY, POSSIBLE ABDUCTOR REPAIR) Scheduled Procedures Name Priority Associated Diagnoses Date/Ti me BURSECTOMY, HIP Trochanteric bursitis, left hip 06/12/2025 12:02 PM EDT documented as of this encounter Visit Diagnoses Not on filedocumented in this encounter Care Teams Truck Safety Inspector Relationship Specialty Start Date End Date Tyrell Magana MD [address] [place] [address] PCP - General Family Medicine 11/15/23 documented as of this encounter
--- OUTSIDE RECORDS SUMMARY | 2025-06-10 10:30 | XMS_ITS | Encounter Summary ---
Author Organization [employer] ([place], [place], [place], [place]) Address [address] [place] [address] Care Team Providers Care Carpenters Supervisor Name Role Phone Tyrell Magana MD Primary Care Provider +1- [phone] Encounter Details Date Type Department Care Team (Late st Contact Info) Description 10/10/2019 Transcribed Document [facility] [place] Family Medicine [address] [place] [address] ProviderBen MD [address] [place] [address] 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 Tobacco Use Types [...] - Ben ProviderMD - 10/10/2019 12:15 PM ACCOUNT ANALYST [facility] Main OR Preop Summary Primary Physician: JOMAR JENKINS MD Finalized Date/Time: 10/10/19 12:06:45 Pt. Name: CELINE DC /Sex: 1985 Female Med Rec #: [id number] Physician: JOMAR JENKINS MD Financial #: [id number] Pt. Type: O Room/Bed: /1 Admit/Disch: 10/10/19 09:16:00 - Institution: [facility] PreOp Case Times Entry 1 In Preop 10/10/19 09:30:00 Ready for Holding n/a Room Patient Ready for 10/10/19 11:28:00 Surgery Patient Out of Preop 10/10/19 12:02:00 Patient Out of n/a Holding Room Last Modified By: Heather Lipscomb, RN 10/10/19 12:06:44 Finalized By: Heather Lipscomb, RN Document Signatures Signed By: Heather Lipscomb RN 10/10/19 12:06 Electronically signed by Segundo [facility] Conversion Trimming Cutter Machine Cerner at 03/13/2023 7:11 PM CDT documented in this encounter Plan of Treatment Upcoming Encounters Date Type Department Care Team (Latest Contact Info) Description 06/12/2025 12:02 PM EDT Hospital Encounter [facility] Operating Room [address] [place] [address] Vaibhav Chester MD [address] [place] [address] 06/12/2025 12:02 PM EDT - 06/12/2025 1:49 PM EDT Surgery [facility] Operating Room [address] [place] [address] Vaibhav Chester MD [address] [place] [address] (LEFT HIP ARTHROSCOPIC BURSECTOMY, POSSIBLE ABDUCTOR REPAIR) Scheduled Procedures Name Priority Associated Diagnoses Date/Ti me BURSECTOMY, HIP Trochanteric bursitis, left hip 06/12/2025 12:02 PM EDT documented as of this encounter Visit Diagnoses Not on filedocumented in this encounter Care Teams Carpenters Supervisor Relationship Specialty Start Date End Date Tyrell Magana MD [address] [place] [address] PCP - General Family Medicine 11/15/23 documented as of this encounter
--- OUTSIDE RECORDS SUMMARY | 2025-06-10 10:30 | XMS_ITS | Encounter Summary ---
Author Organization [employer] ([place], [place], [place], [place]) Address [address] [place] [address] Care Team Providers Care Executive Vice President Name Role Phone Tyrell Magana MD Primary Care Provider +1- [phone] Encounter Details Date Type Department Care Team (Late st Contact Info) Description 10/10/2019 Transcribed Document [facility] Family Medicine [facility] [place] [address] ProviderBen MD [address] [place] [address] 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 Tobacco Use Types [...] Conversion Note - Ben ProviderMD - 10/10/2019 3:14 PM DOUGHNUT FRYER Patient Education Materials Follows: Ureteral Stent Implantation [...] including vitamins, herbs, eye drops, creams, and rjnz-ztu-xclrtsj medicines. ??? Any problems you or family [...] 11/11/2001 Document Revised: 04/21/2017 Document Reviewed: 05/28/2016 Elsevier Interactive Patient Education ? 2019 Elsevier Inc. Lithotripsy, Care After This sheet gives [...] these instructions at home: Medicines ??? Take yyyi-jqb-kgalpap and prescription medicines only as told by [...] 12/03/2008 Document Revised: 10/05/2017 Document Reviewed: 10/05/2017 eSnips Interactive Patient Education ? 2019 [employer]. Outpatient Surgery, Adult, Care After These instructions [...] and water are not available, use hand fundraising director. ? Change your dressing as told by [...] or a bad smell. Medicines ??? Take lysh-yet-anemmev and prescription medicines only as told by [...] 03/06/2017 Document Revised: 06/22/2018 Document Reviewed: 03/06/2017 eSnips Interactive Patient Education ? 2019 [employer]. Electronically signed by Segundo, [facility] Conversion Wrapper Stemmer Operator Cerner at 03/13/2023 7:16 PM CDT documented in this encounter Plan of Treatment Upcoming Encounters Date Type Department Care Team (Latest Contact Info) Description 06/12/2025 12:02 PM EDT Hospital Encounter [facility] Operating Room [address] [place] [address] Vaibhav Chester MD [facility] [place] [address] 06/12/2025 12:02 PM EDT - 06/12/2025 1:49 PM EDT Surgery [facility] Operating Room [address] [place] [address] Vaibhav Chester MD [address] [place] [address] (LEFT HIP ARTHROSCOPIC BURSECTOMY, POSSIBLE ABDUCTOR REPAIR) Scheduled Procedures Name Priority Associated Diagnoses Date/Ti me BURSECTOMY, HIP Trochanteric bursitis, left hip 06/12/2025 12:02 PM EDT documented as of this encounter Visit Diagnoses Not on filedocumented in this encounter Care Teams Executive Vice President Relationship Specialty Start Date End Date Tyrell Magana MD [address] [place] [address] [place] [address] PCP - General Family Medicine 11/15/23 documented as of this encounter
--- OUTSIDE RECORDS SUMMARY | 2025-06-10 10:30 | XMS_ITS | Encounter Summary ---
Author Organization [employer] ([place], [place], [place], [place]) Address [address] [place] [address] Care Team Providers Care Administrative Professional Name Role Phone Tyrell Magana MD Primary Care Provider +1- [phone] Encounter Details Date Type Department Care Team (Late st Contact Info) Description 10/10/2019 Transcribed Document [facility] Family Medicine [address] [place] [address] ProviderBen MD [address] [place] [address] 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 Tobacco Use Types Packs/Day [...] Conversion Note - Historical ProviderMD - 10/10/2019 1:20 PM DOCUMENT CONTROL SPECIALIST DATE OF PROCEDURE: 10/10/2019 SURGEON: Lincoln Dey MD PREOPERATIVE DIAGNOSIS: Left ureteral stone. POSTOPERATIVE DIAGNOSIS: Left ureteral stone with stone manipulation to the renal pelvis. PROCEDURES PERFORMED: 1. Cystourethroscopy. 2. Left ureteral stent placement. 3. Left ureteral stone manipulation. 4. Left extracorporeal shock wave lithotripsy. ANESTHESIA: General. BLOOD LOSS: None. COMPLICATIONS: None. SPECIMENS: None. OPERATIVE FINDINGS: 1. A 6-Bahamian x 24 cm stent placed with good [...] within the mid to proximal ureter. A 6-Bahamian x 24 cm ureteral stent was used [...] with instruction for outpatient followup and KUB. /[id number] MD GERHARD Garcia/FLOWER / GERHARD / MODL /[id number] Electronically signed by Segundo, [facility] Julio Delicatessen Manager Cerner at 03/13/2023 7:06 PM CDT documented in this encounter Plan of Treatment Upcoming Encounters Date Type Department Care Team (Latest Contact Info) Description 06/12/2025 12:02 PM EDT Hospital Encounter [facility] Operating Room 1 [place] [address] Vaibhav Chester MD [address] [place] [address] 06/12/2025 12:02 PM EDT - 06/12/2025 1:49 PM EDT Surgery [facility] Operating Room [address] [place] [address] Vaibhav Chester MD [address] [place] [address] (LEFT HIP ARTHROSCOPIC BURSECTOMY, POSSIBLE ABDUCTOR REPAIR) Scheduled Procedures Name Priority Associated Diagnoses Date/Ti me BURSECTOMY, HIP Trochanteric bursitis, left hip 06/12/2025 12:02 PM EDT documented as of this encounter Visit Diagnoses Not on filedocumented in this encounter Care Teams Administrative Professional Relationship Specialty Start Date End Date Tyrell Magana MD [address] [place] [address] PCP - General Family Medicine 11/15/23 documented as of this encounter
--- OUTSIDE RECORDS SUMMARY | 2025-06-10 10:30 | XMS_ITS | Continuity of Care Document ---
Author Organization [facility] ORTHOPEDICS [address] [place] [address] Care Team Providers Care Public Speaking Coach Name Role Phone RICH LARISSA Primary Care Provider Assessment Encounter Date Assessment Date Assessment LastModified by Organization Details LastModified Time 05/28/2025 05/28/2025 Brought in her MRI today. Please see yesterday's note for full detail including MRI impression. [email or web address] Not available 05/28/2025 09:06:39 Plan of Treatment Reminders Order Date Submit Date Provider Last Modified By Organization Details Last Modified Time Details Appointments [facility] OUTPT 2024 08:30A M ANGÉLICA CROWDER [...] Abnormal Flag Note LastModifiedBy Organization Detail LastModifiedTime 05/27/20 25 05/27/2025 XR, hip, unila teral , 2 or 3 view [facility] [address] [place] [address] Patien t Name: JAYA bautista : [address] bautista 81 Orderi ng Provid er: ALISON JONES AM EXAM DATE: 2024 EXAM: XR LT HIP [...] Interp reted By: Yenni pinto MD Electr onical ly Signed By: Yenni pinto MD on 025 1:11 PM [email or web address] [facility] Radiology [address] [place], [address], 05/30/2025 11:19:46 05/27/20 25 04/30/2025 MRI, hip, w/o contr ast No observ ation record ed. [email or web address] Not Available 11/2024 08:11:29 Result Notes None recorded. Problems Name Problem SNOMED Code Status Onset Date Resolution Date Notes Provider Name and Address Organization Details Recorded Time Kidney stone 30340791 Active 017 Dariel espinoza [facility] 09/08/2017 15:24:19 Problem Notes None recorded. Procedures Surgical History Date Name Laterality Status Provider Name and Address Organization Details Recorded Time 3 Thyroid Surgery completed Dariel Rojo [facility] 04/21/2023 14:01:41 3 lobectomy of thyroid gland completed Kareen Mckeon [facility] 02/11/2023 14:40:26 1 EXTRA CORPOREAL SHOCKWAVE LITHOTRIPSY (SURG) completed [facility] 08/26/2022 15:15:13 9 CYSTOSCOPY, WITH URETEROSCOPY, WITH LITHOTRIPSY, WITH INSERTION OF URETERAL STENT (SURG) completed [facility] 10/10/2019 16:27:49 9 CYSTOSCOPY, WITH URETEROSCOPY, WITH LITHOTRIPSY, WITH INSERTION OF URETERAL STENT (SURG) completed Alessandro Hood [facility] 12/07/2019 13:05:02 7 Kidney Stones completed Dariel Rojo [facility] 09/08/2017 15:24:36 7 CYSTOSCOPY, WITH URETEROSCOPY, WITH LITHOTRIPSY, WITH INSERTION OF URETERAL STENT (SURG) completed JOMAR JENKINS MD [address] [place] [address], [id number] 06/04/2017 10:13:25 Kidney Stones [facility] 01/20/2017 14:07:46 Unlisted px accessory sinus completed [facility] 01/20/2017 14:07:59 Imaging Results None recorded. Procedure Notes None recorded. Medical Equipment None Reported. Allergies Allergen ID Allergen Name Allergen Category Reaction Reaction Severity Criticality Documentation Date Start Date Code Code System Note Provider Name and Address Organization Details Recorded Time 227985 Product containin g penicilli n (product) medicatio n Not available Not available Not available 01/20/2017 83125 8001 SNOMED [facility] 7 14:04:16 479835 Keflex medicatio n Not available Not available Not available 06/10/202240835 7 RxNorm Dariel Rojo [facility] 2 13:34:49 Medications Name Sig Start Date [...] Available Flonase 50 mcg/Actuati on nasl susp [place] 1 spray every day by intranasa l [...] Not Available Not Available Not Available Afluria 9396-0318 (PF) 45 mcg(15 mcg x 3)/0.5 mL [...] Available Not Available Not Available Flucelvax Quad 1397-5100 (PF) 60 mcg (15 mcg x 4)/0.5 [...] Updated DateTime 05/28/2025 170.18 cm 39.9 kg/m2 182156.05 g Daxa Jamesughn [facility] 05/28/2025 08:36:28 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 Question Answer Notes LastModified by Cur[employer] Details LastModified Time Tobacco Smoking Status Never Smoker Sandy espinoza [facility] 01/20/2017 14:07:34 How Much Tobacco Do You Chew? None [email or web address] Information not available 10/08/2019 What Was The Date Of Your Most Recent Tobacco Screening? 10/11/2024 [email or web address] Information not available 10/11/2024 How Much Tobacco Do You Smoke? No [email or web address] Information not available 10/08/2019 Sex: Female Functional Status Question Answer Note LastModified by [employer] Details LastModified Time What is your level [...] 14:07:23 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 Condition Response Allergies/Hayfever Y Anxiety Disorder Y Diabetes N Bleeding Disorder N Arthritis Y Kidney Stones Y High PSA Y Anesthesia Complications N Cancer N Hypertension N Gynecological HistoryNo gynecological history recorded. Obstetrics History GPAL:G 0 P 0 0 0 0 Past Encounters Encounter ID Performer Location Encounter Start Date Encounter Closed Date Diagnosis/Indication Diagnosis SNOMED-CT Code Diagnosis ICD10 Code Diagnosis Note [id number] ANGÉLICA CROWDER MD [facility] [address] [place] [address] 05/27/2025 12:57:42 05/27/2025 13:47:09 Trochanteric bursitis of left hip 0678446053 23979 M70.62 Tendinitis of left gluteal tendon 3583618062 80145 M76.02 [id number] ANGÉLICA CROWDER MD [facility] [address] [place] [address] 05/28/2025 08:32:24 05/28/2025 08:55:59 Health Concerns Section Related Observation LastModified by Organization Detai ls LastModified Time None Recorded Concern Status LastModified by Organization Details LastModified Time None Recorded Payers Encounter Date Sequence Insurance Name Policy Number Policy Renee Covered Member ID Renee Member ID Guarantor Name 05/28/2025 1 [place] [id number] Celine Dc [id number] Celine Dc Notes Date Note Type Note Provider Name and Address Organization Details Recorded Time 05/28/2025 text/html Patient comes in today for FU Left Hip.Patient states they are same than last visit.Brought in her MRI today. Please see yesterday's note for full detail including MRI impression. ANGÉLICA CROWDER MD [address] [place] [address], [phone], [facility] 05/28/2025 09:06:59 OBGyn Episode No OBEpisode recorded.
--- OUTSIDE RECORDS SUMMARY | 2025-06-10 10:30 | XMS_ITS | Encounter Summary ---
Author Organization Healthcare Address [address] [place] [address] Care Team Providers Care Junior Buyer Name Role Phone Oriana Murcia Primary Care Provider Encounter Details Date Type Department Care Team (Late st Contact Info) Description 12/13/2024 Lab Requisition [facility] [address] [place] [address] Kiel Alexander MD [address] [place] [address] Localized swelling, mass and lump, unspecified Social [...] EST) Case Report Sugical Pathology Consult Case: [id number] Authorizing Provider: Kiel Alexander MD Collected: 12/13/2024 1326 Ordering Location: [facility] Received: 12/13/2024 1327 Pathologist: Gaviota Crooks MD Specimen: Soft Tissue, [id number] 12/13/2024 4:12 PM EST [facility] Final Diagnosis SOFT TISSUE, LEFT DORSAL WRIST MASS, EXCISION (OUTSIDE SLIDES, COLLECTED 12/27/24): - LYMPH NODE AND FIBROADIPOSE TISSUE WITH NO SIGNIFICANT PATHOLOGIC ABNORMALITY. - NEGATIVE FOR MALIGNANCY IN SAMPLED TISSUE. 12/13/2024 4:12 PM EST [facility] at 1612 EST Clinical Information R22.9 - Localized swelling, mass and lump, unspecified [ICD-10-CM] 12/13/2024 4:12 PM EST [facility] Gross Description A. [id number] Received along with a corresponding pathology report from [facility] are 6 slides and 1 block labeled outside case: [id number] collected on 11/23/2024. 12/13/2024 4:12 PM EST [facility] Note: A resident was involved in the service. I attest I examined the relevant preparations for the specimens and confirmed the diagnosis or interpretation. 12/13/2024 4:12 PM EST [facility] Tissue Soft tissue / Unknown 12/13/2024 1:26 PM EST 12/13/2024 1:27 PM EST us Kiel Alexander MD LAB PATHOLOGY ORDERABLES Final Result [facility] [address] [place] [address] documented in this encounter Visit Diagnoses Diagnosis Localized swelling, mass and lump, unspecified documented in this encounter Care Teams Junior Buyer Relationship Specialty Start Date End Date Oriana Murcia PA [address] [place] [address] PCP - General 04/10/21 documented as of this encounter
--- OUTSIDE RECORDS SUMMARY | 2025-06-10 10:30 | XMS_ITS | Encounter Summary ---
Author Organization [employer] ([place], [place], [place], [place]) Address [address] [place] [address] Care Team Providers Care Night Order Selector Name Role Phone Tyrell Magana MD Primary Care Provider +1- [phone] Encounter Details Date Type Department Care Team (Late st Contact Info) Description 10/09/2019 Transcribed Document [facility] [place] [address] [place] [address] ProviderBen MD [address] [place] [address] 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 Tobacco Use Types [...] - Historical ProviderMD - 10/09/2019 6:09 PM FLAT FOLDER PAT Adult Entered On: 10/09/2019 18:11 EST Performed On: 10/09/2019 18:09 EST by Zainab Morales, LESLIE Pain Assessment Pain Assessment : Initial assessment Pain Scale Used : 0-10 Scale Location : Flank, left JILLIANGILBERTO RN - 10/10/2019 10:57 EST Height and Weight, Clinical Dosing Height Source : Measured Height Entry Format : Woods Height, Inches : 67 Inch(Converted to: 5 ft 7 Inch, 170.18 cm) Clinical Height : 170.18 cm Weight Source : Standing scale Weight Entry Format : Woods Clinical Dosing Weight : 101.36 kg Weight, Pounds : 223 lb Body Surface Area (BSA) : 2.12 m2 Body Mass Index : 35 kg/m2 (HI) [place] Body Weight : 61 kg GILBERTO WALSH [...] by Zainab Morales, LESLIE) Alcohol: Alcohol Use Comment rarely. (Last Updated: [...] Zainab Morales RN - 10/09/2019 18:09 EST [place] Suicide Severity Rating Scale (C-SSRS) CSSRS Past [...] 10/09/2019 18:09 EST General Info Support Person/Patient Piece Jobber : Yes Support Person/Pt Rep Name : Moy [phone] Rajinder Family/Rep/Phys Notified of Admit : No Information Obtained From : Patient Primary Language : Slovenian Preferred Communication Mode : Verbal Communication Barrier [...] Hospital Encounter [facility] Operating Room [address] [place] [address] Vaibhav Chester MD [address] [place] [address] 06/12/2025 12:02 PM EDT - 06/12/2025 1:49 PM EDT Surgery [facility] Operating Room [address] [place] [address] Vaibhav Chester MD [address] [place] [address] (LEFT HIP ARTHROSCOPIC BURSECTOMY, POSSIBLE ABDUCTOR REPAIR) Scheduled Procedures Name Priority Associated Diagnoses Date/Ti me BURSECTOMY, HIP Trochanteric bursitis, left hip 06/12/2025 12:02 PM EDT documented as of this encounter Visit Diagnoses Not on filedocumented in this encounter Care Teams Night Order Selector Relationship Specialty Start Date End Date Tyrell Magana MD [address] [place] [facility] [address] [place] [address] PCP - General Family Medicine 11/15/23 documented as of this encounter
--- OUTSIDE RECORDS SUMMARY | 2025-06-10 10:30 | XMS_ITS | Encounter Summary ---
Author Organization [facility] Address [address] [place] [address] Care Team Providers Care Pottery Kiln Builder Name Role Phone Dustin Gomez MD Primary [...] on filedocumented in this encounter Care Teams Pottery Kiln Builder Relationship Specialty Start Date End Date Dustin Gomez MD PCP - General 08/02/08 02/11/14 Vicki Villavicencio [place] PCP - General Family Medicine 02/12/14 12/30/17 documented as of this encounter
--- OUTSIDE RECORDS SUMMARY | 2025-06-10 10:30 | XMS_ITS | Encounter Summary ---
Author Organization [facility] Address [address] [place] [address] Care Team Providers Care Retail Route Supervisor Name Role Phone Dustin Gomez MD Primary Care Provider Unavailabl e Doctor, Vicki Primary Care Provider Unavailabl e Encounter Details Date Type Department Care Team (Late st Contact Info) Description 08/14/2007 Historical Encounter Global Leann Bond MD [address] [facility] [address] [place] [address] 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 Tobacco Use Types Packs/Day Years [...] on filedocumented in this encounter Care Teams Retail Route Supervisor Relationship Specialty Start Date End Date Dustin Gomez MD PCP - General 08/02/08 02/11/14 Vicki Villavicencio [place] PCP - General Family Medicine 02/12/14 12/30/17 documented as of this encounter
--- OUTSIDE RECORDS SUMMARY | 2025-06-10 10:30 | XMS_ITS | Encounter Summary ---
Author Organization [employer] ([place], [place], [place], [place]) Address [address] [place] [address] Care Team Providers Care Chili Maker Name Role Phone Tyrell Magana MD Primary Care Provider +1- [phone] Encounter Details Date Type Department Care Team (Late st Contact Info) Description 05/15/2021 Transcribed Document [facility] [facility] [place] [address] ProviderBen MD [address] [place] [address] 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 Tobacco Use Types Packs/Day [...] 05/15/2021 7:56 AM CDT [facility] Main OR Preop Summary Primary Physician: JOMAR JENKINS MD Finalized Date/Time: 05/15/21 15:48:11 Pt. Name: CELINE DC /Sex: 1985 Female Med Rec #: [id number] Physician: JOMAR JENKINS MD Financial #: [id number] Pt. Type: O Room/Bed: /11 Admit/Disch: 05/15/21 06:21:00 - 05/15/21 10:33:00 Institution: [facility] PreOp Case Times Entry 1 In Preop 05/15/21 06:54:00 Ready for Holding n/a Room Patient Ready for 05/15/21 07:26:00 Surgery Patient Out of Preop 05/15/21 07:37:00 Patient Out of n/a Holding Room Last Modified By: Heather Lipscomb, RN 05/15/21 15:48:[address] [facility] PreOp Case Times Audit 05/15/21 15:48:10 Guidance Counselor: [id number] Modifier: [email or web address] <+> 1 Patient Out of Preop Finalized By: Heather Lipscomb, RN Document Signatures Signed By: Heather Lipscomb RN 05/15/21 15:48 Electronically signed by [facility] Conversion Warehouse Delivery Manager Cerner at 03/13/2023 7:11 PM CDT documented in this encounter Plan of Treatment Upcoming Encounters Date Type Department Care Team (Latest Contact Info) Description 06/12/2025 12:02 PM EDT Hospital Encounter [facility] Operating Room [address] [place] [address] Vaibhav Chester MD [address] [place] [address] 06/12/2025 12:02 PM EDT - 06/12/2025 1:49 PM EDT Surgery [facility] Operating Room [address] [place] [address] Vaibhav Chester MD [address] [place] [address] (LEFT HIP ARTHROSCOPIC BURSECTOMY, POSSIBLE ABDUCTOR REPAIR) Scheduled Procedures Name Priority Associated Diagnoses Date/Ti me BURSECTOMY, HIP Trochanteric bursitis, left hip 06/12/2025 12:02 PM EDT documented as of this encounter Visit Diagnoses Not on filedocumented in this encounter Care Teams Chili Maker Relationship Specialty Start Date End Date Tyrell Magana MD [address] [place] [address] PCP - General Family Medicine 11/15/23 documented as of this encounter
--- OUTSIDE RECORDS SUMMARY | 2025-06-10 10:30 | XMS_ITS | Encounter Summary ---
Author Organization [facility] Address [address] [place] [address] Care Team Providers Care Municipal Maintenance Worker Name Role Phone Dustin Gomez MD Primary [...] on filedocumented in this encounter Care Teams Municipal Maintenance Worker Relationship Specialty Start Date End Date Dustin Gomez MD PCP - General 08/02/08 02/11/14 Vicki Villavicencio [place] PCP - General Family Medicine 02/12/14 12/30/17 documented as of this encounter
--- OUTSIDE RECORDS SUMMARY | 2025-06-10 10:30 | XMS_ITS | Encounter Summary ---
Author Organization [employer] ([place], [place], [place], [place]) Address [address] [place] [address] Care Team Providers Care Urgent Care Technician Name Role Phone Tyrell Magana MD Primary Care Provider [phone]- [phone] Encounter Details Date Type Department Care Team (Late st Contact Info) Description 05/14/2021 Transcribed Document [facility] [place] [facility] [place] [address] ProviderBen MD [address] [place] [address] 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 Tobacco Use Types [...] Source : Measured Height Entry Format : [place] Height, Feet : 0 ft(Converted to: 0 cm, 0 Inch) Height, Inches : 66 Inch(Converted to: 5 ft 6 Inch, 167.64 cm) Clinical Height : 167.64 cm Weight Source : Standing scale Weight Entry Format : [place] Clinical Dosing Weight : 104.32 kg Weight, Pounds : 229 lb Weight, Ounces : 8 oz Body Surface Area (BSA) : 2.12 m2 Body Mass Index : 37.1 kg/m2 (HI) [place] Body Weight : 59 kg Chastity Erazo, Nurse Demolition Specialist - 05/15/2021 7:15 EDT Health Histories Smoking Status : Never (less than 100 in lifetime; none in last 30 days) Smokeless Tobacco Status : Never Implant/Device Type, Ve Teacher and Model : bladder sling Caesar Patten Rn - 05/14/2021 17:20 EDT 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 (As Of: 05/14/2021 17:24:24 EDT) Tobacco: Never (less than 100 in lifetime) Smoking Status. (Last Updated: 10/09/2019 18:09:18 EST by Zainab Morales, LESLIE) Alcohol: Alcohol Use History Yes. Use in Last 12 Months: Yes. Alcohol Use Comment couple times a year . (Last Updated: 05/14/2021 17:20:49 EDT by Caesar Patten, Leslie) Substance Abuse: Drug Use Hx: No. Use in Last 12 Months: No. (Last Updated: 10/09/2019 18:09:23 EST by Zainab Morales, LESLIE) Infectious Disease History Has the patient ever [...] Caesar Patten Rn - 05/14/2021 17:20 EDT [place] Suicide Severity Rating Scale (C-SSRS) CSSRS Past [...] 05/14/2021 17:20 EDT General Info Support Person/Patient Design Engineering Specialist : Yes Support Person/Pt Rep Name : Jason Dc - Support Person/Pt Rep Contact Information : [phone] Want Family/Rep/Phys Notified of Admit : No Emergency Contact #1 : ` Emergency Contact #1 Phone Number : ` Emergency Contact #1 Relationship : ` Emergency Contact #2 : ` Emergency Contact #2 Phone Number : ` Emergency Contact #2 Relationship : ` Information Obtained From : Patient Primary Language : Croatian Preferred Communication Mode : Verbal Communication Barrier : None Backwinder Needed : No Caesar Patten Rn - [...] Level Score : 4 Chastity Erazo, Nurse Demolition Specialist - 05/15/2021 7:15 EDT Hx of Obstructive [...] Description 06/12/2025 12:02 PM EDT Hospital Encounter [facility] Operating [address] [place] [address] Vaibhav Chester MD [address] [place] [address] 06/12/2025 12:02 PM EDT - 06/12/2025 1:49 PM EDT Surgery [facility] Operating Room [address] [place] [address] Vaibhav Chester MD [address] [place] [address] (LEFT HIP ARTHROSCOPIC BURSECTOMY, POSSIBLE ABDUCTOR REPAIR) Scheduled Procedures Name Priority Associated Diagnoses Date/Ti me BURSECTOMY, HIP Trochanteric bursitis, left hip 06/12/2025 12:02 PM EDT documented as of this encounter Visit Diagnoses Not on filedocumented in this encounter Care Teams Urgent Care Technician Relationship Specialty Start Date End Date Tyrell Magana MD [address] [place] [address] [place] [address] PCP - General Family Medicine 11/15/23 documented as of this encounter
--- OUTSIDE RECORDS SUMMARY | 2025-06-10 10:30 | XMS_ITS | Encounter Summary ---
Author Organization [employer] ([place], [place], [place], [place]) Address [address] [place] [address] Care Team Providers Care Government Sales Manager Name Role Phone Tyrell Magana MD Primary Care Provider +1- [phone] Encounter Details Date Type Department Care Team (Late st Contact Info) Description 10/10/2019 Transcribed Document [facility] [place] [facility] [place] [address] ProviderBen MD [address] [place] [address] 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 Tobacco Use Types [...] Conversion Note - Historical ProviderMD - 10/10/2019 11:38 AM SUPERSONIC ENGINEER Patient: CELINE DC Age: 34 years Sex: [...] Childrens Flonase 50 mcg/inh nasal spray: 1 [place], Nasal, Daily, 0 Refill(s) Cymbalta 60 mg [...] Childrens Flonase 50 mcg/inh nasal spray 1 [place], Nasal, Daily Cymbalta 60 mg, Oral, Daily [...] Problems Urinary tract infection / SNOMED CT 048517260 / Confirmed Sinusitis / SNOMED CT 19362818 / Confirmed Renal calculus / SNOMED CT 474664970 / Confirmed Migraine / SNOMED CT 24714301 / Confirmed Insulin resistance / SNOMED CT 2159281838 / Confirmed High blood pressure / SNOMED CT 48253226 / Confirmed 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 DDD (degenerative disc disease), lumbosacral / SNOMED CT 877626694 / Confirmed At risk for sleep apnea / IMO 42796395 / Confirmed, Active Problems (9) At risk [...] 88 (OCT 10 11:00) Resp Rate 20 (OCT 10:00) 20 (OCT 10 11:00) 20 (OCT 10 11:) SBP 119 (OCT 10:) 119 (OCT 10 11:00) 119 (OCT 10:) DBP 74 (OCT 10 11:00) 74 (OCT 10 11:00) 74 (OCT 10 11:00) SpO2 96 (OCT 10:) 96 (OCT 10:) 96 (OCT 10:) , Measurements from flowsheet : Measurements 10/09/2019 18:09 EST Height Source Measured Height Entry Format [place] Height/Length [place] 67 Inch CLINICALHEIGHT 170.18 cm [place] Body Weight 61 kg Weight Source Standing scale Weight Entry Format [place] Weight Guatemalan lb 223 lb CLINICALWEIGHT 101.36 kg Body [...] of motion, Normal strength. Integumentary: Warm, Dry, [place]. Neurologic: Alert, Oriented. Psychiatric: Cooperative, Appropriate mood & affect. Review / Management Results review: No qualifying data available, Lab results 10/10/2019 11:18 EST Device Comment 1 Device Comment 1 Glucose POC2 75 mg/dL . Impression and Plan Condition: Stable. Electronically signed by Cesar Raymond Conversion Ordnance Truck Installation Mechanic Cerner at 03/13/2023 7:18 PM CDT documented in this encounter Plan of Treatment Upcoming Encounters Date Type Department Care Team (Latest Contact Info) Description 06/12/2025 12:02 PM EDT Hospital Encounter [facility] Operating Room [address] [place] [id number] Vaibhav Chester MD [address] [place] [address] 06/12/2025 12:02 PM EDT - 06/12/2025 1:49 PM EDT Surgery [facility] Operating Room [address] [place] [address] Vaibhav Chester MD [address] [place], [place] [id number] (LEFT HIP ARTHROSCOPIC BURSECTOMY, POSSIBLE ABDUCTOR REPAIR) Scheduled Procedures Name Priority Associated Diagnoses Date/Ti me BURSECTOMY, HIP Trochanteric bursitis, left hip 06/12/2025 12:02 PM EDT documented as of this encounter Visit Diagnoses Not on filedocumented in this encounter Care Teams Government Sales Manager Relationship Specialty Start Date End Date Tyrell Magana MD [address] [address] PCP - General Family Medicine 11/15/23 documented as of this encounter
--- OUTSIDE RECORDS SUMMARY | 2025-06-10 10:30 | XMS_ITS | Encounter Summary ---
Author Organization [employer] ([place], [place], [place], [place]) Address [address] [place] [address] Care Team Providers Care Hereditary Cancer Program Coordinator Name Role Phone Tyrell Magana MD Primary Care Provider [phone]- [phone] Encounter Details Date Type Department Care Team (Late st Contact Info) Description 10/10/2019 Transcribed Document [facility] [place] Family Medicine [address] [place] [address] ProviderBen MD [address] [place] [address] 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 Tobacco Use Types [...] - Ben ProviderMD - 10/10/2019 12:22 PM LEISURE STUDIES PROFESSOR [facility] Main OR IntraOp Summary Primary Physician: JOMAR JENKINS MD Finalized Date/Time: 10/11/19 12:49:48 Pt. Name: CELINE MARKS /Sex: 1985 Female Med Rec #: [id number] Physician: JOMAR JENKINS MD Financial #: [id number] Pt. Type: O Room/Bed: /1 Admit/Disch: 10/10/19 09:16:00 - 10/10/19 15:22:00 Institution: [facility] IntraOp Case Attendance Entry 1 Entry 2 Entry 3 Case Attendee JOMAR JENKINS MD SHEWCRAFT, SUZANNE K, CHALKLEY, JUDSON E, SUPERINTENDENT PRESSURE, MANAGER CHEMISTRY -ANS Role Performed Surgeon/Proceduralist, MANAGER CHEMISTRY/Nurse Truck Headlight Assembler Anesthesiologist First Time In 10/10/19 12:05:00 10/10/19 12:05:00 10/10/19 12:05:00 Time Out 10/10/19 13:35:00 10/10/19 13:35:00 10/10/19 13:35:00 Procedure Extracorporeal Extracorporeal Extracorporeal Shockwave Shockwave Shockwave Lithotripsy(Left), Lithotripsy(Left), Lithotripsy(Left), Ureteral Stent Insertion Ureteral Stent Insertion Ureteral Stent Insertion Other Attendee SUPERVISIOR Superficial Wound JOMAR JENKINS MD Closed By: Last Modified By: Kiley Scott, Kiley Alexander, Kiley Alexander RN 10/10/19 13:16:04 10/10/19 13:38:32 10/10/19 12:54:41 Entry 4 Entry 5 Entry 6 Case Attendee REED MUNOZ, Chastity Villegas Madden, Jerrild Maintenance Worker Role Performed Grocery Clerk Checking, Second Scrub, First Questioned Documents Examiner Time In 10/10/19 12:05:00 10/10/19 12:05:00 10/10/19 12:05:00 Time Out 10/10/19 13:35:00 10/10/19 12:39:00 10/10/19 13:35:00 Procedure Extracorporeal Ureteral Stent Insertion Extracorporeal Shockwave Shockwave Lithotripsy(Left), Lithotripsy(Left), Ureteral Stent Insertion Ureteral Stent Insertion Other Attendee RELIEF Superficial Wound Closed By: Last Modified By: Kiley Scott, Kiley Alexander, Kiley Alexander RN 10/10/19 12:54:41 10/10/19 12:54:41 10/10/19 13:38:32 Entry 7 Entry 8 Case Attendee Kiley Scott JAMIE MONK APRN, MANAGER CHEMISTRY Role Performed Grocery Clerk Checking, First MANAGER CHEMISTRY/Nurse Truck Headlight Assembler Time In 10/10/19 12:45:00 10/10/19 12:05:00 Time Out 10/10/19 13:35:00 10/10/19 12:33:00 Procedure Extracorporeal Ureteral Stent Insertion Shockwave Lithotripsy(Left) Other Attendee Superficial Wound Closed By: Last Modified By: Kiley Scott RN Parker, Katherine, RN 10/10/19 13:38:32 10/10/19 13:16:04 [facility] IntraOp Case Attendance Audit 10/10/19 13:38:32 Pressroom Supervisor: DANY Modifier: PARKEK 1 <+> Time Out [...] <*> Procedure Ureteral Stent Insertion 10/10/19 13:16:04 Pressroom Supervisor: DANY Modifier: PARKEK 1 <*> Case Attendee JOMAR JENKINS MD 1 <*> Role Performed Surgeon/Proceduralist, First 1 <*> Time In 10/10/19 12:05:00 1 <*> Procedure Extracorporeal Shockwave Lithotripsy(Left), Ureteral Stent Insertion 1 <*> Superficial Wound Closed By: JOMAR JENKINS MD 2 <*> Case Attendee ALMA ROSA GARZA APRN, MANAGER CHEMISTRY 2 <*> Role Performed MANAGER CHEMISTRY/Nurse Truck Headlight Assembler 2 <*> Time In 10/10/19 12:05:00 2 <*> Procedure Extracorporeal Shockwave Lithotripsy(Left), Ureteral Stent Insertion 3 <*> Case Attendee KIMMY RILEY MD-ANS 3 <*> Role Performed Anesthesiologist 3 <*> Time In 10/10/19 12:05:00 3 <*> Procedure Extracorporeal Shockwave Lithotripsy(Left), Ureteral Stent Insertion 3 <*> Other Attendee SUPERVISIOR 4 <*> Case Attendee REED UMNOZ, RN 4 <*> Role Performed Grocery Clerk Checking, Second 4 <*> Time In 10/10/19 12:05:00 4 <*> Procedure Extracorporeal Shockwave Lithotripsy(Left), Ureteral Stent Insertion 4 <*> Other Attendee RELIEF 5 <*> Case Attendee Chastity Gray, Maintenance Worker 5 <*> Role Performed Scrub, First 5 <*> Time In 10/10/19 12:05:00 5 <*> Time Out 10/10/19 12:39:00 5 <*> Procedure Ureteral Stent Insertion 6 <*> Case Attendee Issa Perez 6 <*> Role Performed Questioned Documents Examiner 6 <*> Time In 10/10/19 12:05:00 6 <*> Procedure Extracorporeal Shockwave Lithotripsy(Left), Ureteral Stent Insertion 7 <*> Case Attendee Kiley Scott, LESLIE 7 <*> Role Performed Grocery Clerk Checking, First 7 <*> Time In 10/10/19 12:45:00 7 <*> Procedure Extracorporeal Shockwave Lithotripsy(Left) 8 <+> Case Attendee 8 <+> Role Performed 8 <*> Time In 10/10/19 12:05:00 8 <*> Time Out 10/10/19 13:03:00 8 <+> Procedure 10/10/19 13:08:18 Pressroom Supervisor: DANY Modifier: DAYN 1 <*> Procedure Extracorporeal Shockwave Lithotripsy(Left), Ureteral [...] Lithotripsy(Left) <+> 8 Time In 10/10/19 13:03:21 Pressroom Supervisor: DANY Modifier: PARKEK 1 <*> Procedure Extracorporeal [...] Extracorporeal Shockwave Lithotripsy(Left) <+> 8 Time Out [facility] IntraOp Case Times Entry 1 Patient In Room Time 10/10/19 12:05:00 Out Room Time 10/10/19 13:35:00 Anesthesia Start Time 10/10/19 12:05:00 Stop Time 10/10/19 13:35:00 Surgery / Procedure Times Start Time 10/10/19 12:22:00 Stop Time 10/10/19 13:29:00 Last Modified By: Kiley Scott RN 10/10/19 13:29:14 [facility] IntraOp Case Times Audit 10/10/19 13:38:31 Pressroom Supervisor: DANY Modifier: PARKEK <+> 1 Out Room Time <+> 1 Stop Time 10/10/19 13:29:14 Pressroom Supervisor: GERALDOEK Modifier: PARKEK <+> 1 Stop Time [facility] IntraOp Communication Entry 1 Communication To Family/Significant other Comment START OF PROCEDURES Communication By REED MUNOZ RN Date and Time 10/10/19 12:24:00 Last Modified By: Kiley Scott RN 10/10/19 12:55:34 [facility] IntraOp Departure from OR Entry 1 Integumentary Assessment Integumentary WDL Assessment WDL Transfer/Handoff Transfer to PACU Phase I Handoff Method Bedside/Face to face, Phone call Handoff Reported to LC [place] RN Post-op Transport Stretcher/Gurney Via Patient Transport ALMA ROSA GARZA, Accompanied by [place] JEROME, Kiley Scott RN Last Modified By: Kiley Scott RN 10/10/19 12:56:37 [facility] IntraOp Dressing and Packing Entry 1 Type Dressing Location OPSITE Wound Dressing Item Other Applied By JOMAR JENKINS MD Other Comments TEGADERM Last Modified By: Kiley Scott RN 10/10/19 12:57:30 [facility] IntraOp Fire Risk Assessment Entry 1 Fire [...] Modified By: Kiley Scott RN 10/10/19 12:57:49 [facility] IntraOp General Case Drive Tester 1 Case Information OR OR 19 [facility] Case Level 1 Room Verified Yes Wound Class II - Clean-Contaminated Specialty SN Urology Anesthesia Type General ASA Class 2 Diagnosis Preop Diagnosis LEFT RENAL STONE Postop Same As Preop Yes Postop Diagnosis LEFT RENAL STONE Last Modified By: Kiley Scott RN 10/10/19 12:58:28 [facility] IntraOp General Case Data Audit 10/10/19 13:26:41 Pressroom Supervisor: DANY Modifier: DANY 1 <*> Preop Diagnosis RIGHT RENAL STONE 1 <*> Postop Diagnosis RIGHT RENAL STONE [facility] IntraOp Implant Log Entry 1 Type Implant (Synthetic) Implant Log Implant Type Other Implant STENT URET BRAID + Identification [id number] Description Implant Quantity 1 Implant Site OPSITE Implant [id number] Identification Lot Number Implant [place] Identification Sci:Urology/Gynecology Chief Minister Name: Implant [id number] Identification Catalog Number Implant Size 6 FR X 24 CM Implant Has an Yes Expiration Date Tissue Implant Last Modified By: Kiley Scott RN 10/10/19 13:21:15 [facility] IntraOp Intraoperative Assessment Entry 1 Valid History / Yes Physical in Chart Preoperative Yes Checklist Reviewed/Evaluated Allergies Reviewed Yes Patient is Latex No Sensitive Isolation Not applicable Precautions Noted Level of WDL Consciousness (WDL = Alert, Oriented to Person, Place, and Time) Skin Assessment No Verified Present Upon IVs Arrival to OR Last Modified By: Kiley Scott RN 10/10/19 12:58:37 [facility] IntraOp Intraoperative Equipment Entry 1 Entry 2 Type Monitoring Equipment Equipment Equipment Other ID Number [id number] Setting Intraop Monitoring Electrocardiogram Three lead placement [...] Parker, Katherine, RN 10/10/19 12:59:21 10/10/19 12:59:21 [facility] IntraOp Medication Admin Entry 1 Entry 2 Medication/Irrigant Normal Saline 0.9% lidocaine 2% urojet 1000ml irrigation - 10ml jelly - [id number] Combo Med List Time Administered Route of Irrigation TOPICAL Administration Dose Dose 500 Unit of Measure ml ml Volume Administered By JOMAR JENKINS MD JOHNSON, JUSTIN DALE, MD Procedure Irrigation Irrigant Volume In Irrigant Volume Out Last Modified By: Kiley Scott RN Parker, Katherine, RN 10/10/19 13:02:41 10/10/19 13:02:41 [facility] IntraOp Patient Positioning Entry 1 Procedure Extracorporeal [...] Modified By: Kiley Scott RN 10/10/19 13:05:24 [facility] IntraOp Patient Positioning Audit 10/10/19 13:08:18 Pressroom Supervisor: DANY Modifier: PARKEK 1 <*> Procedure Extracorporeal Shockwave Lithotripsy(Left), Ureteral Stone Manipulation Laser, Ureteral Stent Insertion 10/10/19 13:05:24 Pressroom Supervisor: DANY Modifier: PARKEK 1 <*> Procedure Extracorporeal Shockwave Lithotripsy(Left), Ureteral Stone Manipulation Laser, Ureteral Stent Insertion 1 <+> Device Position 1 <*> Positioned By JOMAR JENKINS MD [facility] IntraOp Sign In Entry 1 Patient, Site, [...] Modified By: Kiley Scott RN 10/10/19 13:05:35 [facility] IntraOp Sign Out Entry 1 RN Confirmation [...] Modified By: Kiley Scott RN 10/10/19 13:05:55 [facility] IntraOp Sign Out Audit 10/10/19 13:26:48 Pressroom Supervisor: PARKEK Modifier: PARKEK <+> 1 RN Sign Out Signature Date/Time [facility] IntraOp Skin Prep Entry 1 Procedure Ureteral Stent Insertion Prescribed N/A Pre-Surgical Prep Completed Prep Area genitalia Intraop Prep Integumentary WDL Assessment WDL Prep Agents Betadine solution Prep by REED MUNOZ RN Hair Removal Methods No hair removal performed Last Modified By: Kiley Scott RN 10/10/19 13:06:37 [facility] IntraOp Skin Prep Audit 10/10/19 13:08:41 Pressroom Supervisor: GERALDOEK Modifier: PARKEK 1 <*> Procedure Ureteral Stent Insertion 10/10/19 13:08:19 Pressroom Supervisor: GERALDOEK Modifier: PARKEK 1 <*> Procedure Ureteral Stent Insertion [facility] IntraOp Surgical Procedures Entry 1 Entry 2 [...] II - Clean-Contaminated Last Modified By: Kiley Scott, Kiley Alexander RN 10/10/19 13:08:41 10/10/19 13:08:41 [facility] IntraOp Surgical Procedures Audit 10/10/19 13:29:51 Pressroom Supervisor: GERALDOEK Modifier: PARKEK 2 <*> Procedure Ureteral Stent Insertion 2 <+> Specialty 10/10/19 13:29:33 Pressroom Supervisor: GERALDOEK Modifier: PARKEK 1 <*> Procedure Extracorporeal Shockwave Lithotripsy 10/10/19 13:29:17 Pressroom Supervisor: GERALDOEK Modifier: PARKEK <+> 1 Stop <+> 2 Stop [facility] IntraOp Temp Regulation Devices Entry 1 Temp Regulation Temperature Warm blankets, Forced Regulation Device Air Warming device Temperature Upper body Regulation Site Temperature monitored per Regulation Comment anesthesia, madie hugger available Last Modified By: Kiley Scott RN 10/10/19 13:08:53 [facility] IntraOP Time Out Entry 1 Procedure to [...] Yes Labeled and Displayed Last Modified By: iKley Scott RN 10/10/19 13:10:34 Case Comments <None> [...] Description 06/12/2025 12:02 PM EDT Hospital Encounter [facility] Operating Room [address] [place] [address] Vaibhav Chester MD [address] [place] [address] 06/12/2025 12:02 PM EDT - 06/12/2025 1:49 PM EDT Surgery [facility] Operating Room [address] [place] [address] Vaibhav Chester MD [address] [place] [address] (LEFT HIP ARTHROSCOPIC BURSECTOMY, POSSIBLE ABDUCTOR REPAIR) Scheduled Procedures Name Priority Associated Diagnoses Date/Ti me BURSECTOMY, HIP Trochanteric bursitis, left hip 06/12/2025 12:02 PM EDT documented as of this encounter Visit Diagnoses Not on filedocumented in this encounter Care Teams Hereditary Cancer Program Coordinator Relationship Specialty Start Date End Date Tyrell Magana MD [address] [place] [address] [place] [address] PCP - General Family Medicine 11/15/23 documented as of this encounter
--- OUTSIDE RECORDS SUMMARY | 2025-06-10 10:30 | XMS_ITS ---
Author Organization Unknown Medications Medication Instructions Effective Dates (start - stop) Status pantoprazole 40 MG Delayed R elease Oral Tablet [id number]:00:00.000+00:0 0 - Completed pantoprazole 40 MG Delayed R elease Oral Tablet 9249-47-16M35:00:00.000+00:0 0 - Completed {21 (ethinyl estradiol 0.03 MG / norethindrone acetate 1.5 MG Oral Tablet) / 7 (ferrous fumarate 75 MG Oral Tablet) } Pack [] 0933-42-80O24:00:00.000+00:0 0 - Completed cyclobenzaprine hydrochlorid e 5 MG Oral Tablet 3989-67-88L44:00:00.000+00:0 0 - Completed - 8004-14-93J60:00 :00.000+00:0 0 - Completed cyclobenzaprine hydrochlorid e 5 MG Oral Tablet 7919-46-72F85:00:00.000+00:0 0 - Completed cyclobenzaprine hydrochlorid e 5 MG Oral Tablet 6057-26-00S16:00:00.000+00:0 0 - Completed {21 (ethinyl estradiol 0.03 MG / norethindrone acetate 1.5 MG Oral Tablet) / 7 (ferrous fumarate 75 MG Oral Tablet) } Pack [] 6060-17-61A91:00:00.000+00:0 0 - Completed cyclobenzaprine hydrochlorid e 5 MG Oral Tablet 2719-50-89K89:00:00.000+00:0 0 - Completed pantoprazole 40 MG Delayed R elease Oral Tablet 5438-84-75Z02:00:00.000+00:0 0 - Completed {21 (ethinyl estradiol 0.03 MG / norethindrone acetate 1.5 MG Oral Tablet) / 7 (ferrous fumarate 75 MG Oral Tablet) } Pack [[facility] ] 0339-94-11N52:00:00.000+00:0 0 - Completed {21 (ethinyl estradiol 0.03 MG / norethindrone acetate 1.5 MG Oral Tablet) / 7 (ferrous fumarate 75 MG Oral Tablet) } Pack [[facility] ] 1189-19-32N51:00:00.000+00:0 0 - Completed pantoprazole 40 MG Delayed R elease Oral Tablet 6992-70-12Y98:00:00.000+00:0 0 - Completed {21 (ethinyl estradiol 0.03 MG / norethindrone acetate 1.5 MG Oral Tablet) / 7 (ferrous fumarate 75 MG Oral Tablet) } Pack [[facility] ] 7687-00-48W76:00:00.000+00:0 0 - Completed cyclobenzaprine hydrochlorid e 5 MG Oral Tablet 7144-16-18D62:00:00.000+00:0 0 - Completed fluticasone propionate 0.05 MG/ACTUAT Metered Dose Nasal Moran 9968-65-82O19:00:00 .000+00:0 0 - Completed verapamil hydrochloride 120 MG Extended Release Oral Tablet 1471-96-16F88:00:00.000+0 0:0 0 - Completed sertraline 50 MG Oral Tablet 01-07-10T:00:00.000+00:0 0 - Completed ondansetron 4 MG Disintegrat ing Oral Tablet 1554-18-83L04:00:00.000+00:0 0 - Completed cyclobenzaprine hydrochlorid e 5 MG Oral Tablet 5130-43-89L49:00:00.000+00:0 0 - Completed metformin hydrochloride 500 MG Oral Tablet 6892-26-21G55:00:00.000+00:0 0 - Completed meloxicam 7.5 MG Oral Tablet 01-27-16T:00:00.000+00:0 0 - Completed metformin hydrochloride 500 MG Oral Tablet 5302-59-83Z42:00:00.000+00:0 0 - Completed meloxicam 7.5 MG Oral Tablet 01-07-25:00:00.000+00:0 0 - Completed metformin hydrochloride 500 MG Oral Tablet 8912-30-72X47:00:00.000+00:0 0 - Completed buspirone hydrochloride 7.5 MG Oral Tablet 4266-05-97G38:00:00.000+00:0 0 - Completed meloxicam 7.5 MG Oral Tablet 01-06-24:00:00.000+00:0 0 - Completed ondansetron 4 MG Disintegrat ing Oral Tablet 6094-00-21C70:00:00.000+00:0 0 - Completed sertraline 50 MG Oral Tablet 01-26-03:00:00.000+00:0 0 - Completed sertraline 50 MG Oral Tablet 01-31-14:00:00.000+00:0 0 - Completed cyclobenzaprine hydrochlorid e 5 MG Oral Tablet 1841-56-00F81:00:00.000+00:0 0 - Completed famotidine 40 MG Oral Tablet 01-08-30:00:00.000+00:0 0 - Completed ondansetron 4 MG Oral Tablet 01-28-15:00:00.000+00:0 0 - Completed meloxicam 7.5 MG Oral Tablet 02-01-13:00:00.000+00:0 0 - Completed lisinopril 10 MG Oral Tablet 01-27-10:00:00.000+00:0 0 - Completed lisinopril 10 MG Oral Tablet 01-09-19:00:00.000+00:0 0 - Completed {6 (azithromycin 250 MG Oral Tablet) } Pack 8079-12-40F05:00:00.000+00:0 0 - Completed famotidine 40 MG Oral [...] Completed metformin hydrochloride 500 MG Oral Tablet 8049-32-33Q88:00:00.000+00:0 0 - Completed metformin hydrochloride 500 MG Oral Tablet 2280-10-22N80:00:00.000+00:0 0 - Completed lisinopril 10 MG Oral Tablet 01-26-11:00:00.000+00:0 0 - Completed lisinopril 10 MG Oral Tablet 02-02-24:00:00.000+00:0 0 - Completed {6 (azithromycin 250 MG Oral Tablet) } Pack 7157-54-32Z06:00:00.000+00:0 0 - Completed 24 HR propranolol hydrochlor humera 60 MG Extended Release Oral Capsule 3861-87-41L67:00:00.0 00+00:0 0 - Completed buspirone hydrochloride 7.5 MG Oral Tablet 6061-59-21W83:00:00.000+00:0 0 - Completed buspirone hydrochloride 7.5 MG Oral Tablet 2982-89-39P16:00:00.000+00:0 0 - Completed zafirlukast 20 MG Oral Tablet 20-12-13:00:00.000+00:0 0 - Completed 24 HR propranolol hydrochlor humera 60 MG Extended Release Oral Capsule 9655-10-83H11:00:00.0 00+00:0 0 - Completed levocetirizine dihydrochlori de 5 MG Oral Tablet 1660-90-44K00:00:00.000+00:0 0 - Completed fluconazole 150 MG Oral Tablet 2 240-57-23E15:00:00.000+00:0 0 - Completed 24 HR propranolol hydrochlor humera 60 MG Extended Release Oral Capsule 8155-86-59U56:00:00.0 00+00:0 0 - Completed zafirlukast 20 MG Oral Tablet 19-06-18:00:00.000+00:0 0 - Completed rivaroxaban 20 MG Oral Table t [Xarelto] 6664-04-42A38:00:00.000+00:0 0 - Completed 24 HR propranolol hydrochlor humera 60 MG Extended Release Oral Capsule 5643-61-64I96:00:00.0 00+00:0 0 - Completed potassium citrate 15 MEQ Ext ended Release Oral Tablet 2575-25-20Q81:00:00.000+00:0 0 - Completed potassium citrate 15 MEQ Ext ended Release Oral Tablet 0860-16-83Q04:00:00.000+00:0 0 - Completed 24 HR propranolol hydrochlor humera 60 MG Extended Release Oral Capsule 5455-03-80T73:00:00.0 00+00:0 0 - Completed zafirlukast 20 MG Oral Tablet 20-03-18:00:00.000+00:0 0 - Completed zafirlukast 20 MG Oral Tablet 18-09-25:00:00.000+00:0 0 - Completed rivaroxaban 20 MG Oral Table t [Xarelto] 1749-45-18I24:00:00.000+00:0 0 - Completed buspirone hydrochloride 7.5 MG Oral Tablet 2277-48-42N30:00:00.000+00:0 0 - Completed fluconazole 150 MG Oral Tablet 2 265-58-34O19:00:00.000+00:0 0 - Completed potassium citrate 15 MEQ Ext ended Release Oral Tablet 5941-78-74D28:00:00.000+00:0 0 - Completed glycopyrrolate 1 MG Oral Tablet 3868-76-00A38:00:00.000+00:0 0 - Completed glycopyrrolate 1 MG Oral Tablet 8845-08-20M11:00:00.000+00:0 0 - Completed doxycycline hyclate 100 MG O ral Tablet 8466-09-89C57:00:00.000+00:0 0 - Completed levocetirizine dihydrochlori de 5 MG Oral Tablet 3988-14-72M29:00:00.000+00:0 0 - Completed levocetirizine dihydrochlori de 5 MG Oral Tablet 4728-20-82B80:00:00.000+00:0 0 - Completed glycopyrrolate 1 MG Oral Tablet 5447-17-82U60:00:00.000+00:0 0 - Completed - 4348-92-81E51:00 :00.000+00:0 0 - Completed levocetirizine dihydrochlori de 5 MG Oral Tablet 7640-38-77M95:00:00.000+00:0 0 - Completed glycopyrrolate 1 MG Oral Tablet 0664-05-62E34:00:00.000+00:0 0 - Completed Patient Care team information Name Category Status Period Participants - - Proposed period not known -
--- OUTSIDE RECORDS SUMMARY | 2025-06-10 10:31 | XMS_ITS | Encounter Summary ---
Author Organization [employer] ([place], [place], [place], [place]) Address [address] [place] [address] Care Team Providers Care Computer Installer Name Role Phone Tyrell Magana MD Primary Care Provider +1- [phone] Encounter Details Date Type Department Care Team (Late st Contact Info) Description 05/15/2021 Transcribed Document [facility] [address] ProviderBen MD [address] [place] [address] 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 Tobacco Use Types Packs/Day [...] Ben ProviderMD - 05/15/2021 7:[address] [facility] Main OR PostOp Summary Primary Physician: JOMAR JENKINS MD Finalized Date/Time: 05/15/21 10:50:17 Pt. Name: CELINE DC /Sex: 1985 Female Med Rec #: [id number] Physician: JOMAR JENKINS MD Financial #: [id number] Pt. Type: O Room/Bed: /11 Admit/Disch: 05/15/21 06:21:00 - Institution: [facility] Main OR PostOp Case Times Entry 1 In PACU II 05/15/21 09:25:00 Ready for PACU II 05/15/21 10:33:00 Discharge Discharge from PACU 05/15/21 10:33:00 II Last Modified By: ENIO DOS SANTOS RN 05/15/21 10:50:13 Finalized By: ENIO DOS SANTOS, RN Document Signatures Signed By: ENIO DOS SANTOS RN 05/15/21 10:50 Electronically signed by Segundo [facility] Conversion Coffee Roaster Cerner at 03/13/2023 7:20 PM CDT documented in this encounter Plan of Treatment Upcoming Encounters Date Type Department Care Team (Latest Contact Info) Description 06/12/2025 12:02 PM EDT Hospital Encounter [facility] Operating Room [address] [place] [address] Vaibhav Chester MD [address] [place] [address] 06/12/2025 12:02 PM EDT - 06/12/2025 1:49 PM EDT Surgery [facility] Operating Room [address] [place] [address] Vaibhav Chester MD [address] [place] [address] (LEFT HIP ARTHROSCOPIC BURSECTOMY, POSSIBLE ABDUCTOR REPAIR) Scheduled Procedures Name Priority Associated Diagnoses Date/Ti me BURSECTOMY, HIP Trochanteric bursitis, left hip 06/12/2025 12:02 PM EDT documented as of this encounter Visit Diagnoses Not on filedocumented in this encounter Care Teams Computer Installer Relationship Specialty Start Date End Date Tyrell Magana MD [address] [place] [address] [place] [address] PCP - General Family Medicine 11/15/23 documented as of this encounter
--- OUTSIDE RECORDS SUMMARY | 2025-06-10 10:31 | XMS_ITS | Clinical Summary ---
Author Organization [employer] ([place], [place], [place], [place]) Address [address] [place] [address] Care Team Providers Care Safety Equipment Testing Specialist Name Role Phone Tyrell Magana MD Primary Care Provider +1- [phone] Allergies Active Allergy Reactions Criticality Noted Date [...] Description 05/06/2025 12:59 PM EDT Anesthesia Event [facility] Surgery Department [address] [place] [address] Chery Gill CRNA Booker, Philip Craig, MD 05/06/2025 12:00 PM EDT - 05/06/2025 1:52 PM EDT Surgery [facility] Surgery Department [address] [place] [address] Justice Miller MD Diagnostic LAPAROSCOPY, ENDOMETRIAL ABLATION 05/06/2025 9:19 AM EDT - 05/06/2025 3:19 PM EDT Hospital Encounter [facility] Surgery Department [address] [place] [address] Justice Miller MD Excessive or frequent menstruation; Encounter for gynecological examination with abnormal finding; Excessive, frequent and irregular menstruation; Secondary dysmenorrhea Discharge Disposition: Home or Self Care 05/06/2025 Travel 04/30/2025 3:54 PM EDT - 04/30/2025 11:59 PM EDT Hospital Encounter [facility] Diagnostic Imaging [address] [place] [address] Justice Miller MD Discharge Disposition: Home or Self Care 04/30/2025 2:38 PM EDT - 04/30/2025 3:53 PM EDT Hospital Encounter [facility] Preadmission Testing [address] [place] [address] Justice Miller MD Pre-op testing (Primary Dx); [...] Date Surinder rded Speak language other than Maltese at home Not on file 12/16/2023 Want [...] Description 06/12/2025 12:02 PM EDT Hospital Encounter [facility] Operating Room [address] [place] [address] Vaibhav Chester MD [address] [place] [address] 06/12/2025 12:02 PM EDT - 06/12/2025 1:49 PM EDT Surgery [facility] Operating Room [address] [place] [address] Vaibhav Chester MD [address] [place] [address] (LEFT HIP ARTHROSCOPIC BURSECTOMY, POSSIBLE ABDUCTOR REPAIR) Scheduled Procedures Name Priority Associated Diagnoses Date/Ti me BURSECTOMY, HIP Trochanteric bursitis, left hip 06/12/2025 12:02 PM EDT Health Maintenance Due Date Last Done Comments Diabetic Kidney Health Evalu ation (KED) 1984 Diabetic Eye Exam 1994 Depression Screening (12+) 1996 HIV Screening 1999 Hepatitis C Screening 2002 Pneumococcal Vaccine: 0-49 Y ears (1 of 2 - PCV) 2003 Lipid Panel 2004 Pap Smear 2005 DTAP/TDAP/TD VACCINES (2 - T d or Tdap) 08/14/2008 08/14/1998 Breast Cancer Screening 2024 COVID-19 VACCINE ( - 2023-2 5 season) 2024 06/22/2022, 10/20/2021, 01/16/2021, Additional history exists Hemoglobin A1C 05/06/2025 Influenza Vaccine (#1) 2025 08/28/2017 Tobacco Cessation Counseling and Screening (12+) 05/06/2026 05/06/2025 Procedures Procedure Name Priority Date/Time Associated Diagnosis Comments NOVA GLUCOSE POC Routine 05/06/2025 2:12 PM EDT TISSUE EXAM [facility] AP Routine 05/06/2025 1:43 PM EDT Excessive or frequent menstruation Encounter for gynecological examination with abnormal finding Excessive, frequent and irregular menstruation Secondary dysmenorrhea ANESTHESIA INTUBATION Routine 05/06/2025 1:06 PM EDT [place] HYSTEROSCOPY ENDOMETRIAL ABLATION 05/06/2025 12:58 PM EDT Excessive or frequent menstruation Encounter for gynecological examination with abnormal finding Excessive, frequent and irregular menstruation Secondary dysmenorrhea Case Notes This case needs to be Robotic per TEJAS Love [place] LAPS ABD PRTM&OMENTUM DX W/WO SPEC BR/WA [...] Glucose, Nova Meter (05/06/2025 2:12 PM EDT) Pathologist [facility] POC-GLUCOSE 104 70 - 110 mg/dL 05/06/2025 2:13 PM EDT [facility] Comment: In the event of poor peripheral blood flow, venous or arterial blood should be used due to the potential of erroneous results. No action Require Acidizer Water Well [id number] 05/06/2025 2:13 PM EDT [facility] Blood WHOLE BLOOD / Unknown 05/06/2025 2:12 PM EDT 05/06/2025 2:13 PM EDT Narrative [facility] - 05/06/2025 2:13 PM EDT Acidizer Water Well ID is - [id number] Justice Miller MD POINT OF CARE TEST ORDERABLES Final Result [facility] [address] [phone] * Tissue Exam (05/06/2025 1:43 PM EDT) [facility] AP RESULT See Note: [facility] Comment: [facility] [address] [place] [address] or [phone] Heath Pruett M.D., Accreditation Manager PATIENT NAME LABORATORY NO. CELINE BAUTISTA. [id number] AGE SEX SSN CLIENT REF # [facility] 39 1985 F [id number] [facility] [employer] [place]END[place] [address] JUSTICE MILLER DATE COLLECTED DATE RECEIVED DATE [...] rendered by Ailyn Siddiqui M.D., Liyah at [email or web address] [facility], [address] [place] [address]. GROSS DESCRIPTION: Labeled endometrial curettings consists of multiple pieces of rocha-brown soft tissue measuring 3.0 x 2.5 x 0.6 cm in aggregate. Specimens are filtered and submitted entirely in 3 blocks. BKO REVIEWED, DIAGNOSED AND ELECTRONICALLY SIGNED BY: Ailyn Siddiqui M.D., F.C.A.P. CPT CODES: 85689 Tissue SPECIMEN FROM ENDOMETRIUM OBTAINED BY CURETTAGE / Unknown 05/06/2025 1:43 PM EDT Justice Miller MD PATHOLOGY/CYTOLOGY ORDERABLES Final Result Performing Organization Address City/State/[facility] Co de Phone Number [facility] [address] [place] [address] * AN SINGLE LUMEN INTUBATION (05/06/2025 1:06 [...] 1 Number of other approaches attempted: 0 [facility] ANESTHESIA ORDERABLES Final Result * EKG-SCANNED (05/06/2025) Narrative 05/06/2025 Ordered by an unspecified provider. us Default Scanning Provider SCAN ORDERS Final Result * X-ray chest PA and lateral (04/30/2025 4:00 PM EDT) Anatomical Region Laterality Modality Chest X-Ray 04/30/2025 5:32 PM EDT Impressions 04/30/2025 5:34 PM EDT Unremarkable two-view chest. Images reviewed, interpreted, dictated and electronically signed by Nithin Matamoros MD Voice steam plant control room operator technology (Capsule Teche) is used for the dictation of this note and sound-alike words might be erroneously placed despite reviewing this note for accuracy. Errors in dictation may reflect use of voice recognition software and not all errors in steam plant control room operator may have been detected prior to [...] electronically signed by Nithin Matamoros MD Voice steam plant control room operator technology (Power Scribe) is used for the dictation of this note and sound-alike words might be erroneously placed despite reviewing this note for accuracy. Errors in dictation may reflect use of voice recognition software and not all errors in steam plant control room operator may have been detected prior to signing. us Justice Miller MD IMG DIAGNOSTIC IMAGING ORDERA BLES Final Result * Screen, urine (04/30/2025 3:08 PM EDT) Pathologist [facility] Preg Test, Ur Negative Negative, Inconclusive 04/30/2025 3:26 PM EDT [facility] Urine 04/30/2025 3:08 PM EDT 04/30/2025 3:08 PM EDT Justice Miller MD URINE ORDERABLES Final Result Performing Organization Address City/State/[facility] Co de Phone Number [facility] [address] [place] [address] * CBC with automated diff (04/30/2025 3:07 PM EDT) [facility] WBC 9.2 3.9 - 10.0 K/ L [...] 3:07 PM EDT 04/30/2025 3:07 PM EDT [facility] - 04/30/2025 3:22 PM EDT [...] [facility] [address] [place] [employer] [address] [phone] * (ABNORMAL) Comprehensive metabolic panel (04/30/2025 3:07 [...] - 22 mg/dL 04/30/2025 3:32 PM EDT [facility] Creatinine [...] [facility] [address] [phone] * ECG 12 lead (04/30/2025 1:59 PM EDT) VENTRICULAR RATE EKG/MIN 82 BPM GE MUSE ATRIAL RATE (MCT) 82 BPM GE MUSE [place] Interval 170 ms GE MUSE QRS-INTERVAL (MSEC) 92 ms GE MUSE QT Interval 354 ms GE MUSE QTC Interval 413 ms GE MUSE P Brock 55 degrees GE MUSE R AXIS (MCT) 69 degrees GE MUSE T Wave Brock 65 degrees GE MUSE [place] Diagnosis Normal sinus rhythm Normal ECG Confirmed by Gustavo FITZGERALD SUZANNE ([id number]) on 04/30/2025 4:57:51 PM GE MUSE 04/30/2025 1:59 PM EDT 04/30/2025 4:57 PM EDT us Justice Miller MD ECG ORDERABLES Final Result GE MUSE from Last 3 Months Insurance BLUE CROSS/BLUE SHIELD Advance Directives For more information, please contact: [phone] * Full Code (Latest Code Status on File) Date Activated Date Inactivated Comments 11/17/2023 11:34 AM 11/17/2023 6:14 PM Care Teams Safety Equipment Testing Specialist Relationship Specialty Start Date End Date Tyrell Magana MD [address] [place] [address] PCP - General Family Medicine 11/15/23
--- OUTSIDE RECORDS SUMMARY | 2025-06-10 10:31 | XMS_ITS | Encounter Summary ---
Author Organization [employer] ([place], [place], [place], [place]) Address [address] [place] [address] Care Team Providers Care Bookmobile Clerk Name Role Phone Tyrell Magana MD Primary Care Provider +1- [phone] Encounter Details Date Type Department Care Team (Late st Contact Info) Description 05/15/2021 Transcribed Document [facility] Family Medicine [facility] [place] [address] ProviderBen MD [address] [place] [address] 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 Tobacco Use Types [...] : 1985 Associated Diagnoses: None Author: SIMIN STILES, ROUTING EQUIPMENT TENDER Chief Complaint R renal stone Review of [...] Facet Joint Syndrome, 0 Refill(s) Flonase: 1 [place], Nostrils Both, Daily, PRN: Allergies, 0 Refill(s) [...] 5 mg, PRN, Oral, BID Flonase 1 [place], PRN, Nostrils Both, Daily glycopyrrolate 1 mg [...] Problems Urinary tract infection / SNOMED CT 157275644 / Confirmed Sinusitis / SNOMED CT 80694734 / Confirmed Renal calculus / SNOMED CT 566977082 / Confirmed Migraine / SNOMED CT 75969032 / Confirmed Kidney stone / SNOMED CT 338187104 / Confirmed Insulin resistance / SNOMED CT 0416681142 / Confirmed High blood pressure / SNOMED CT 53870882 / Confirmed 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 kidney stone [...] EDT Height Source Measured Height Entry Format Warren Height/Length, NIGERIEN (ft) 0 ft Height/Length NIGERIEN 66 Inch CLINICALHEIGHT 167.64 cm [place] Body Weight 59 kg Weight Source Standing scale Weight Entry Format Warren Weight Taiwanese lb 229 lb Weight Taiwanese oz 8 oz CLINICALWEIGHT 104.32 kg Body [...] of motion, Normal strength. Integumentary: Warm, Dry, [place]. Neurologic: Alert, Oriented. Psychiatric: Cooperative, Appropriate mood [...] [facility] Operating Room [address] [place] [address] Vaibhav Chester MD [address] [place] [address] 06/12/2025 12:02 PM EDT - 06/12/2025 1:49 PM EDT Surgery [facility] Operating Room [address] [place] [address] Vaibhav Chester MD [address] [place] [address] (LEFT HIP ARTHROSCOPIC BURSECTOMY, POSSIBLE ABDUCTOR REPAIR) Scheduled Procedures Name Priority Associated Diagnoses Date/Ti me BURSECTOMY, HIP Trochanteric bursitis, left hip 06/12/2025 12:02 PM EDT documented as of this encounter Visit Diagnoses Not on filedocumented in this encounter Care Teams Bookmobile Clerk Relationship Specialty Start Date End Date Tyrell Magana MD [address] [place] [address] PCP - General Family Medicine 11/15/23 documented as of this encounter
--- OUTSIDE RECORDS SUMMARY | 2025-06-10 10:31 | XMS_ITS | Encounter Summary ---
Author Organization [email or web address] ([place], [place], [place], [place]) Address [address] [place] [address] Care Team Providers Care Business Services Clerk Name Role Phone Tyrell Magana MD Primary Care Provider +1- [phone] Encounter Details Date Type Department Care Team (Late st Contact Info) Description 05/15/2021 Transcribed Document [facility] [place] [facility] [place] [address] ProviderBen MD [address] [place] [address] 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 Tobacco Use Types [...] Conversion Note - Ben ProviderMD - 05/15/2021 9:47 AM CDT Patient Education [...] these instructions at home: Medicines ??? Take wwgf-lwn-xjvrxtn and prescription medicines only as told by [...] provider. Document Revised: 02/25/2020 Document Reviewed: 10/05/2017 [employer] Patient Education ? 2019 [employer]. Pharmacology General Anesthesia, Adult, Care After This [...] activities are safe for you. ??? Take hqby-sse-osixuzd and prescription medicines only as told by [...] provider. Document Revised: 11/17/2018 Document Reviewed: 06/30/2018 [employer] Patient Education ? 2020 [employer] Procedures Outpatient Surgery, Adult, Care After [...] and water are not available, use hand professor of astronomy. ? Change your dressing as told by [...] or a bad smell. Medicines ??? Take dshr-fhs-iczjmtn and prescription medicines only as told by [...] provider. Document Revised: 02/12/2019 Document Reviewed: 03/06/2017 [employer] Patient Education ? 2019 [employer] documented in this encounter Plan of Treatment Upcoming Encounters Date Type Department Care Team (Latest Contact Info) Description 06/12/2025 12:02 PM EDT Hospital Encounter [facility] Operating Room [address] [place] [address] Vaibhav Chester MD [address] [place] [address] 06/12/2025 12:02 PM EDT - 06/12/2025 1:49 PM EDT Surgery [facility] Operating Room [address] [place] [address] Vaibhav Chester MD [facility] [place] [address] (LEFT HIP ARTHROSCOPIC BURSECTOMY, POSSIBLE ABDUCTOR REPAIR) Scheduled Procedures Name Priority Associated Diagnoses Date/Ti me BURSECTOMY, HIP Trochanteric bursitis, left hip 06/12/2025 12:02 PM EDT documented as of this encounter Visit Diagnoses Not on filedocumented in this encounter Care Teams Business Services Clerk Relationship Specialty Start Date End Date Tyrell Magana MD [address] [place] [address] [place] [address] PCP - General Family Medicine 11/15/23 documented as of this encounter
--- OUTSIDE RECORDS SUMMARY | 2025-06-10 10:31 | XMS_ITS | Encounter Summary ---
Author Organization [email or web address] ([place], [place], [place], [place]) Address [address] [place] [address] Care Team Providers Care Civil Celebrant Name Role Phone Tyrell Magana MD Primary Care Provider +1- [phone] Encounter Details Date Type Department Care Team (Late st Contact Info) Description 05/15/2021 Transcribed Document [facility] [place] [facility] [place] [address] ProviderBen MD [address] [place] [address] 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 Tobacco Use Types [...] Conversion Note - Historical ProviderMD - 05/15/2021 10:30 AM CDT [facility] [place] [address] CELINE DC :1985 [...] Follow up appointment is scheduled at the [place] location for 05/28/21 at 1:45pm. Please arrive to this appointment at least 20 minutes early for scheduled [facility] X-Ray. Where: [address] [place] [address]- Medications What How Much When Instructions Next Dose cyclobenzaprine (Flexeril) 5 Milligram(s) Oral Two Times A Day as needed for Facet Joint Syndrome busPIRone (BuSpar) 7.5 Milligram(s) Oral Two Times A Day ethinyl estradiol-norethindrone (Junel 1.5/ 30 oral tablet) 1 Tablet(s) Oral Every Day fluticasone nasal (Flonase) 1 Leeds(s) Nostrils Both Every Day as needed for [...] and water are not available, use hand signal operator. ? Change your dressing as told by [...] or a bad smell. Medicines ??? Take jfdh-ccw-wkldkyr and prescription medicines only as told by [...] provider. Document Revised: 02/12/2019 Document Reviewed: 03/06/2017 [employer] Patient Education ?? 2020 [employer] General Anesthesia, Adult, Care After This [...] activities are safe for you. ??? Take pabc-kmr-dayaeru and prescription medicines only as told by [...] provider. Document Revised: 11/17/2018 Document Reviewed: 06/30/2018 [employer] Patient Education ?? 2020 [employer]. Lithotripsy, Care After This sheet gives you [...] these instructions at home: Medicines ??? Take zgif-osf-cjxxhds and prescription medicines only as told by [...] provider. Document Revised: 02/25/2020 Document Reviewed: 10/05/2017 [employer] Patient Education ?? 2020 [employer] Emergency Awareness and Preventative Care STROKE [...] Assistance with quitting is available by contacting 5-095-LOQX-NOW. This is a free resource providing counseling, [...] was given the opportunity to ask questions. Patient/Soil Scientist Name: Patient/Soil Scientist Signature: Relationship to Patient: Clinician/Hospital Soil Scientist Signature: Date: documented in this encounter Plan of Treatment Upcoming Encounters Date Type Department Care Team (Latest Contact Info) Description 06/12/2025 12:02 PM EDT Hospital Encounter [facility] Operating Room [address] [place] [address] Vaibhav Chester MD [address] [place] [address] 06/12/2025 12:02 PM EDT - 06/12/2025 1:49 PM EDT Surgery [facility] Operating Room [address] [place] [address] Vaibhav Chester MD [address] [place] [address] (LEFT HIP ARTHROSCOPIC BURSECTOMY, POSSIBLE ABDUCTOR REPAIR) Scheduled Procedures Name Priority Associated Diagnoses Date/Ti me BURSECTOMY, HIP Trochanteric bursitis, left hip 06/12/2025 12:02 PM EDT documented as of this encounter Visit Diagnoses Not on filedocumented in this encounter Care Teams Civil Celebrant Relationship Specialty Start Date End Date Tyrell Magana MD [address] [place] [address] PCP - General Family Medicine 11/15/23 documented as of this encounter
--- OUTSIDE RECORDS SUMMARY | 2025-06-10 10:31 | XMS_ITS | Encounter Summary ---
Author Organization [employer] ([place], [place], [place], [place]) Address [address] [place] [address] Care Team Providers Care Fishing Vessel Deckhand Name Role Phone Tyrell Magana MD Primary Care Provider +1- [phone] Encounter Details Date Type Department Care Team (Late st Contact Info) Description 05/15/2021 Transcribed Document [facility] [place] [facility] [place] [address] ProviderBen MD [address] [place] [address] 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 Tobacco Use Types [...] ProviderMD - 05/15/2021 7:56 AM CDT [facility] Main OR IntraOp Summary Primary Physician: JOMAR JENKINS MD Finalized Date/Time: 05/26/21 11:04:59 Pt. Name: CELINE DC /Sex: 1985 Female Med Rec #: [id number] Physician: JOMAR JENKINS MD Financial #: [id number] Pt. Type: O Room/Bed: Admit/Disch: 05/15/21 06:21:00 - 05/15/21 10:33:00 Institution: [facility] IntraOp Case Attendance Entry 1 Entry 2 Entry 3 Case Attendee JOMAR JENKINS MD Poff, Janie, RN Issa Perez Role Performed Surgeon/Proceduralist, Automation Application Engineer, First Consultant First Time In 05/15/21 07:37:00 05/15/21 07:37:00 [...] MONTIEL NA CELLAROSI-YORBA, MARIA, MD-ANS Role Performed MEDICAL COLLECTIONS SPECIALIST/Nurse Charcoal Burner Beehive Kiln Anesthesiologist of Record Time In 05/15/21 07:37:00 05/15/21 07:37:00 Time Out 05/15/21 08:47:00 05/15/21 08:47:00 Procedure Extracorporeal Extracorporeal Shockwave Shockwave Lithotripsy(Right) Lithotripsy(Right) Other Attendee Superficial Wound Closed By: Last Modified By: Maryan Suarez RN Poff, Janie, RN 05/15/21 08:47:25 05/15/21 08:47:59 [facility] IntraOp Case Attendance Audit 05/15/21 08:47:59 Presentation Team Member: GAYATHRI Modifier: POFFJAN 5 <+> Case Attendee 5 <*> Procedure Extracorporeal Shockwave Lithotripsy(Right) 05/15/21 08:47:25 Presentation Team Member: GAYATHRI Modifier: POFFJAN 1 <+> Time Out [...] Out 5 <*> Procedure Extracorporeal Shockwave Lithotripsy(Right) [facility] IntraOp Case Times Entry 1 Patient In Room Time 05/15/21 07:37:00 Out Room Time 05/15/21 08:47:00 Anesthesia Start Time 05/15/21 07:37:00 Stop Time 05/15/21 08:47:00 Surgery / Procedure Times Start Time 05/15/21 07:56:00 Stop Time 05/15/21 08:42:00 Last Modified By: Maryan Suarez RN 05/15/21 08:47:22 [facility] IntraOp Case Times Audit 05/15/21 08:47:22 Presentation Team Member: POFFJAN Modifier: POFFJAN <+> 1 Out Room Time <+> 1 Stop Time 05/15/21 08:42:50 Presentation Team Member: POFFJAN Modifier: POFFJAN <+> 1 Stop Time [facility] IntraOp Communication Entry 1 Communication To Family/Significant other Comment Procedure start Communication By Maryan Suarez RN Date and Time 05/15/21 08:00:00 Last Modified By: Maryan Suarez RN 05/15/21 08:14:19 [facility] IntraOp Delays Entry 1 Delay Reason Other Duration 7 Minute(s) Comment Surgeon arrived to sign consent and vikash patient at 0730 Last Modified By: Maryan Suarez RN 05/15/21 08:08:46 [facility] IntraOp Departure from OR Entry 1 Integumentary Assessment Integumentary WDL Assessment WDL Transfer/Handoff Transfer to PACU Phase I Handoff Method Phone call Post-op Transport Caridad/Robert Via Patient Transport DARA MONTIEL NA, Accompanied by Maryan Suarez RN Last Modified By: Maryan Suarez RN 05/15/21 08:14:46 [facility] IntraOp Fire Risk Assessment Entry 1 [...] Modified By: Maryan Suarez RN 05/15/21 08:11:41 [facility] IntraOp General Case Manager Human Capital 1 Case Information OR OR 19 [facility] Case Level 1 Room Verified Yes Wound Class II - Clean-Contaminated Specialty Urology Anesthesia Type General ASA Class 3 Diagnosis Preop Diagnosis Right renal calculus Postop Same As Preop Yes Postop Diagnosis Right renal calculus Last Modified By: Maryan Suarez RN 05/15/21 08:16:10 [facility] IntraOp Intraoperative Assessment Entry 1 Handoff Report Chastity Erazo, Nurse Received from Photonics Engineering Technician Handoff Method Bedside/Face to face, Online nursing summary Valid History / Yes Physical in Chart Preoperative Yes Checklist Reviewed/Evaluated Allergies Reviewed Yes Patient is Latex No Sensitive Isolation Not applicable Precautions Noted Level of WDL Consciousness (WDL = Alert, Oriented to Person, Place, and Time) Skin Assessment Yes Verified Present Upon IVs Arrival to OR Last Modified By: Maryan Suarez RN 05/15/21 08:13:19 [facility] IntraOp Intraoperative Equipment Entry 1 Type Monitoring Equipment Intraop Monitoring Electrocardiogram Five lead placement (ECG) Electrode Placement Blood Pressure Non-Invasive BP Device Source Antiembolic Devices Antiembolic Devices Sequential compression device, knee high Antiembolic Device Bilateral Location Antiembolic Device [id number] ID Number Scopes Photo/Video Documentation Photo No Video No Intraop Equipment Sequential compression Comment devices on and in operation prior to induction. Last Modified By: Maryan Suarez RN 05/15/21 08:16:40 [facility] IntraOp Patient Positioning Entry 1 Procedure [...] Cysto, Pillows Positioned By DARA MONTIEL NA, Madden, Jerrild, Maryan Suarez, RN, JOMAR JENKINS MD Position Verified Positioning Yes Verified by Anesthesia Positioning Yes Verified by Surgeon Last Modified By: Maryan Suarez RN 05/15/21 08:10:45 [facility] IntraOp Sign In Entry 1 Patient, [...] Modified By: Maryan Suarez RN 05/15/21 08:08:59 [facility] IntraOp Sign Out Entry 1 RN [...] Modified By: Maryan Suarez RN 05/15/21 08:47:36 [facility] IntraOp Sign Out Audit 05/15/21 08:47:36 Presentation Team Member: GAYATHRI Modifier: GAYATHRI <+> 1 RN Sign Out Signature Date/Time 05/15/21 08:17:56 Presentation Team Member: GAYATHRI Modifier: GAYATHRI 1 <*> OUTCOME STATEMENT: Absence of N/A observable signs or symptoms of radiation injury [facility] IntraOp Surgical Procedures Entry 1 Procedure Extracorporeal Shockwave Lithotripsy Modifiers Right Additional Right extracorporeal Procedure shockwave lithotripsy Description Primary Procedure Yes Primary Surgeon JOMAR JENKINS MD Start 05/15/21 07:56:00 Stop 05/15/21 08:42:00 Anesthesia Type General Specialty Urology Wound Class I - Clean Last Modified By: Maryan Suarez RN 05/15/21 08:47:30 [facility] IntraOp Surgical Procedures Audit 05/15/21 08:47:30 Presentation Team Member: GAYATHRI Modifier: GAYATHRI <+> 1 Stop [facility] IntraOp Temp Regulation Devices Entry 1 Temp Regulation Temperature Forced Air Warming Regulation Device device, Room temperature, Warm blankets Temperature 92346 Regulation Device Serial/Unit Number Temperature Upper body Regulation Site Temperature DARA MONTIEL, SYLVAIN Regulation Device Applied by Last Modified By: Maryan Suarez RN 05/15/21 08:17:31 [facility] IntraOP Time Out Entry 1 Procedure [...] Unfinalizing Freetext Reason for Unfinalizing 05/26/21 11:04 WATTSDR Correct Billing Electronically signed by Segundo [facility] Conversion Operation Specialist Cerner at 03/13/2023 6:58 PM CDT documented in this encounter Plan of Treatment Upcoming Encounters Date Type Department Care Team (Latest Contact Info) Description 06/12/2025 12:02 PM EDT Hospital Encounter [facility] Operating Room [address] [place] [address] Vaibhav Chester MD [facility] [place] [address] 06/12/2025 12:02 PM EDT - 06/12/2025 1:49 PM EDT Surgery [facility] Operating Room [address] [place] [address] Vaibhav Chester MD [address] [place] [address] (LEFT HIP ARTHROSCOPIC BURSECTOMY, POSSIBLE ABDUCTOR REPAIR) Scheduled Procedures Name Priority Associated Diagnoses Date/Ti me BURSECTOMY, HIP Trochanteric bursitis, left hip 06/12/2025 12:02 PM EDT documented as of this encounter Visit Diagnoses Not on filedocumented in this encounter Care Teams Fishing Vessel Deckhand Relationship Specialty Start Date End Date Tyrell Magana MD [address] [place] [address] [place] [address] PCP - General Family Medicine 11/15/23 documented as of this encounter
--- OUTSIDE RECORDS SUMMARY | 2025-06-10 10:31 | XMS_ITS | Encounter Summary ---
Author Organization [employer] ([place], [place], [place], [place]) Address [address] [place] [address] Care Team Providers Care Debridging Machine Operator Name Role Phone Tyrell Magana MD Primary Care Provider +1- [phone] Encounter Details Date Type Department Care Team (Late st Contact Info) Description 05/15/2021 Transcribed Document [facility] [place] [facility] [address] ProviderBen MD [address] [place] [address] 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 Tobacco Use Types Packs/Day [...] Conversion Note - Historical ProviderMD - 05/15/2021 8:37 AM CDT DATE OF [...] with instructions for outpatient followup with [facility]. /[id number] MD GERHARD Garcia/FLOWER / JMYAH / MODL /[id number] documented in this encounter Plan of Treatment Upcoming Encounters Date Type Department Care Team (Latest Contact Info) Description 06/12/2025 12:02 PM EDT Hospital Encounter [facility] Operating Room [address] [place] [address] Vaibhav Chester MD [address] [place] [address] 06/12/2025 12:02 PM EDT - 06/12/2025 1:49 PM EDT Surgery [facility] Operating Room [address] [place] [address] Vaibhav Chester MD [facility] [place] [address] (LEFT HIP ARTHROSCOPIC BURSECTOMY, POSSIBLE ABDUCTOR REPAIR) Scheduled Procedures Name Priority Associated Diagnoses Date/Ti me BURSECTOMY, HIP Trochanteric bursitis, left hip 06/12/2025 12:02 PM EDT documented as of this encounter Visit Diagnoses Not on filedocumented in this encounter Care Teams Debridging Machine Operator Relationship Specialty Start Date End Date Tyrell Magana MD [address] [place] [address] PCP - General Family Medicine 11/15/23 documented as of this encounter
--- OUTSIDE RECORDS SUMMARY | 2025-06-10 10:31 | XMS_ITS | Encounter Summary ---
Author Organization [employer] ([place], [place], [place], [place]) Address [address] [place] [address] Care Team Providers Care Spot Sprayer Name Role Phone Tyrell Magana MD Primary Care Provider +1- [phone] Encounter Details Date Type Department Care Team (Late st Contact Info) Description 05/15/2021 Transcribed Document [facility] [place] [facility] [place] [address] ProviderBen MD [address] [place] [address] 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 Tobacco Use Types [...] Ben ProviderMD - 05/15/2021 7:56 AM CDT [facility] Main OR PACU Summary Primary Physician: JOMAR JENKINS MD Finalized Date/Time: 05/15/21 09:30:35 Pt. Name: CELINE DC /Sex: 1985 Female Med Rec #: [id number] Physician: JOMAR JENKINS MD Financial #: [id number] Pt. Type: O Room/Bed: Admit/Disch: 05/15/21 06:21:00 - Institution: [facility] Main OR PACU I Case Times Entry 1 In PACU I 05/15/21 08:50:00 Ready for PACU 05/15/21 09:22:00 Discharge Discharge from PACU 05/15/21 09:22:00 I Last Modified By: Anjelica Cueto RN 05/15/21 09:29:46 Finalized By: Anjelica Cueto RN Document Signatures Signed By: Anjelica Cueto RN 05/15/21 09:30 Electronically signed by [facility] Conversion Irrigation System Operator Cerner at 03/13/2023 7:21 PM CDT documented in this encounter Plan of Treatment Upcoming Encounters Date Type Department Care Team (Latest Contact Info) Description 06/12/2025 12:02 PM EDT Hospital Encounter [facility] Operating Room [address] [place] [address] Vaibhav Chester MD [address] [place] [address] 06/12/2025 12:02 PM EDT - 06/12/2025 1:49 PM EDT Surgery [facility] Operating Room [address] [place] [address] Vaibhav Chester MD [address] [place] [address] (LEFT HIP ARTHROSCOPIC BURSECTOMY, POSSIBLE ABDUCTOR REPAIR) Scheduled Procedures Name Priority Associated Diagnoses Date/Ti me BURSECTOMY, HIP Trochanteric bursitis, left hip 06/12/2025 12:02 PM EDT documented as of this encounter Visit Diagnoses Not on filedocumented in this encounter Care Teams Spot Sprayer Relationship Specialty Start Date End Date Tyrell Magana MD [address] [facility] [address] PCP - General Family Medicine 11/15/23 documented as of this encounter
== END 2025-06-07 23:59 | disposition home or self-care (01) ==
LOC: LAB.DROPOF 06-10 10:25
PROVIDERS: PCP Nurse Practitioner Family; Visit Provider Nurse Practitioner Family
DX: R39.9 Unspecified symptoms and signs involving the genitourinary system (principal)
CPT/HCPCS: 87086

== ENCOUNTER 2025-06-26 12:42 | Outpatient (CLI) | payer BC, SELFPAY ==
--- OUTSIDE RECORDS SUMMARY | 2025-04-30 14:38 | XMS_ITS | Encounter Summary ---
Author Organization [employer] ([place], [place], [place], [place]) Address [address] [place] [address] Care Team Providers Care Catastrophe Claims Supervisor Name Role Phone Tyrell Magana MD Primary Care Provider [phone] Encounter Details Date Type Department Care Team (Latest Contact Info) Description 04/30/2025 2:38 PM EDT - 04/30/2025 3:53 PM EDT Hospital Encounter [facility] Preadmission Testing [address] [facility] [address] [place] [address] Dandy Duque MD [address] [facility] [address] [place] [address] Pre-op testing (Primary Dx); RLS (restless legs syndrome) Discharge Disposition: Home or Self Care 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 Tobacco Use Types Packs/Day Years Used Date Smoking Tobacco: Never Smokeless Tobacco: Never Alcohol Use Standard Drinks/Week Comments Not Currently 0 (1 standard drink = 0.6 oz pur e alcohol) RARELY Family and Community Support Answer Apolinar e Recorded Help with Day to Day Activities Not on file 12/16/2023 Feeling Lonely or Isolated Not on file 12/16 Educational Attainment Answer Date Surinder rded Speak language other than Faroese at home Not on file 12/16/2023 Want help with school or training Not on file 12/16/2023 Substance Use Answer Date Recorded Used prescription meds for non-medical reasons N ot on file 12/16/2023 Used illegal drugs past 12 months Not on file 12/16/2023 Comments Unknown Sex and Gender Information Value Date Recorded Sex Assigned at Female 2022 8:07 PM CDT Legal Sex Female 8:07 PM CDT Gender Identity Female 2022 8:07 PM CDT Sexual Orientation Not on file documented as of this encounter Last Filed Vital Signs Vital Sign Reading Time Taken Comments Blood Pressure 132/84 04/30/2025 2:50 PM EDT Pulse 92 04/30/2025 2:50 PM EDT Temperature 36.5 C (97.7 F) 04/30/2025 2:50 PM EDT Respiratory Rate 18 04/30/2025 2:50 PM EDT Oxygen Saturation 97% 04/30/2025 2:50 PM EDT Inhaled Oxygen Concentration - - Weight 117.9 kg (260 lb) 04/30/2025 2:50 PM EDT Height 167.6 cm (5' 6 ) 04/30/2025 2:50 PM EDT Body Mass Index 41.97 04/30/2025 2:50 PM EDT documented in this encounter Medications at Time of Discharge busPIRone (BUSPAR) 7.5 MG tablet Take 1 tablet (7.5 mg total) by mouth 2 (two) times daily. 10/29/2023 cetirizine (ZyrTEC) 10 MG tablet Take 1 tablet (10 mg total) by mouth daily. cholecalciferol (VITAMIN D3) 125 mcg (5,000 unit) tablet Take 1 tablet (5,000 Units total) by mouth daily. DULoxetine (CYMBALTA) 30 MG capsule Take 1 capsule (30 mg total) by mouth daily. famotidine (PEPCID) 40 MG tablet Take 1 tablet (40 mg total) by mouth daily. 10/29/2023 fluticasone propionate (FLONASE) 50 mcg/actuation nasal spray Administer 1 spray into each nostril daily. glycopyrrolate (RobinuL) 1 mg tablet 10/29/2023 meloxicam (MOBIC) 7.5 MG tablet TAKE 1 TABLET BY MOUTH EVERY DAY FOR ARTHRITIS 10/29/2023 metFORMIN (GLUCOPHAGE) 500 MG tablet Missing or Non-Formulary Medication PROBIOTIC. multivit with calcium,iron,min (MULTIVITAMIN-CA LCIUM AND IRON ORAL) 10/29/2023 pantoprazole (PROTONIX) 40 MG tablet Take 1 tablet (40 mg total) by mouth daily. potassium citrate (Urocit-K 15) 15 mEq TbER 10/29/2023 propranoloL (Inderal LA) 60 MG 24 hr capsule 03/24/2023 zafirlukast (Accolate) 20 MG tablet 10/29/2023 b complex vitamins tablet Take 1 tablet by mouth daily. 5 cyclobenzaprine (FLEXERIL) 5 MG tablet Take 1 tablet (5 mg total) by mouth 2 (two) times daily. 10/29/2023 5 hydroCHLOROthiaz humera (MICROZIDE) 12.5 mg capsule Take 1 capsule (12.5 mg total) by mouth daily. 5 levocetirizine (Xyzal) 5 MG tablet 10/29/2023 5 lisinopriL (PRINIVIL,ZESTRI L) 10 MG tablet Take 1 tablet (10 mg total) by mouth 3 (three) times daily. 10/29/2023 5 nitrofurantoin, macrocrystal-mon ohydrate, (MACROBID) 100 MG capsule Take 1 capsule (100 mg total) by mouth 2 (two) times daily. 14 capsule 11/17/2023 5 norethindrone-et hinyl estradiol-iron (Junel FE 1.5/30, 28,) 1.5 mg-30 mcg (21)/75 mg (7) per tablet 10/29/2023 5 phentermine (Adipex-P) 37.5 mg tablet 10/29/2023 5 rOPINIRole (REQUIP) 0.25 MG tabletIndication s:restless leg syndrome Take 4 tablets (1 mg total) by mouth daily. 10/29/2023 5 sertraline (ZOLOFT) 50 MG tablet Take 1 tablet (50 mg total) by mouth daily. 10/29/2023 5 documented as of this encounter H&P Notes * JASMINE Ignacio - 04/30/2025 3:00 PM EDT History & Physical Name: Celine Dc : 1985 Age: 39 y.o. SUBJECTIVE: Chief Complaint / Reason for Visit: preop exam HPI: Celine Dc is a 39 y.o. female who presents prior to Procedure Laterality Anesthesia ROBOTIC LAPAROSCOPY, ENDOMETRIAL ABLATION, HYSTEROSCOPY D&C N/A General ABLATION, ENDOMETRIUM N/A Due to Diagnosis Excessive or frequent menstruation Encounter for gynecological examination with abnormal finding Excessive, frequent and irregular menstruation Secondary dysmenorrhea ROS: + excessive menses HISTORY: Patient Active Problem List Diagnosis Date Noted Migraines 04/30/2025 RLS (restless legs syndrome) 04/30/2025 Morbid obesity (HCC) 11/17/2023 HTN (hypertension) CON (obstructive sleep apnea) GERD (gastroesophageal reflux disease) Past Surgical History: Procedure Laterality Date BLADDER SLING SURGERY FOR LEAKAGE KIDNEY STONE SURGERY X 8 LEFT WRIST SURGERY Left BENIGN TUMOR REMOVAL LITHOTRIPSY,EXTRACORPOREAL SHOCK WAVE (ESWL) Bilateral 11/17/2023 Procedure: BILATERAL ESWL; Surgeon: Hira Rider MD; Location: [facility]; Service: Urology; Laterality: Bilateral; ESWL CONF #: [id number] SPOKE TO ARUN SINUS SURGERY X 2 WISDOM TOOTH EXTRACTION ALLERGIES: Penicillin and Cephalexin 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 Tobacco Use Smoking status: Never Smokeless tobacco: Never Substance Use Topics Alcohol use: Not Currently Comment: RARELY No family history on file. Current Outpatient Medications on File Prior to Encounter Medication Sig Dispense Refill b complex vitamins tablet Take 1 tablet by mouth daily. (Patient not taking: Reported on 04/30/2025.) busPIRone (BUSPAR) 7.5 MG tablet Take 1 tablet (7.5 mg total) by mouth 2 (two) times daily. cetirizine (ZyrTEC) 10 MG tablet Take 1 tablet (10 mg total) by mouth daily. cholecalciferol (VITAMIN D3) 125 mcg (5,000 unit) tablet Take 1 tablet (5,000 Units total) by mouthdaily. cyclobenzaprine (FLEXERIL) 5 MG tablet Take 1 tablet (5 mg total) by mouth 2 (two) times daily. (Patient not taking: Reported on 04/30/2025.) DULoxetine (CYMBALTA) 30 MG capsule Take 1 capsule (30 mg total) by mouth daily. famotidine (PEPCID) 40 MG tablet Take 1 tablet (40 mg total) by mouth daily. fluticasone propionate (FLONASE) 50 mcg/actuation nasal spray Administer 1 spray into each nostril daily. glycopyrrolate (RobinuL) 1 mg tablet hydroCHLOROthiazide (MICROZIDE) 12.5 mg capsule Take 1 capsule (12.5 mg total) by mouth daily. levocetirizine (Xyzal) 5 MG tablet lisinopriL (PRINIVIL,ZESTRIL) 10 MG tablet Take 1 tablet (10 mg total) by mouth 3 (three) times daily. meloxicam (MOBIC) 7.5 MG tablet TAKE 1 TABLET BY MOUTH EVERY DAY FOR ARTHRITIS metFORMIN (GLUCOPHAGE) 500 MG tablet Missing or Non-Formulary Medication PROBIOTIC. multivit with calcium,iron,min (MULTIVITAMIN-CALCIUM AND IRON ORAL) nitrofurantoin, macrocrystal-monohydrate, (MACROBID) 100 MG capsule Take 1 capsule (100 mg total) by mouth 2 (two) times daily. (Patient not taking: Reported on 04/30/2025.) 14 capsule 0 norethindrone-ethinyl estradiol-iron (Junel FE ,) 1.5 mg-30 mcg (21)/75 mg (7) per tablet pantoprazole (PROTONIX) 40 MG tablet Take 1 tablet (40 mg total) by mouth daily. phentermine (Adipex-P) 37.5 mg tablet (Patient not taking: Reported on 04/30/2025.) potassium citrate (Urocit-K 15) 15 mEq TbER propranoloL (Inderal LA) 60 MG 24 hr capsule rOPINIRole (REQUIP) 0.25 MG tablet Take 4 tablets (1 mg total) by mouth daily. sertraline (ZOLOFT) 50 MG tablet Take 1 tablet (50 mg total) by mouth daily. (Patient not taking: Reported on 04/30/2025.) zafirlukast (Accolate) 20 MG tablet No current facility-administered medications on file prior to encounter. OBJECTIVE: Blood pressure 132/84, pulse 92, temperature 97.7 ??F (36.5 ??C), temperature source Tympanic, resp. rate 18, height 1.676 m (5' 6 ), weight 117.9 kg (260 lb), SpO2 97%. Physical Exam Vitals and nursing note reviewed. Constitutional: Appearance: Normal appearance. She is obese. HENT: Head: Normocephalic. Nose: Nose normal. Mouth/Throat: Mouth: Mucous membranes are moist. Eyes: Conjunctiva/sclera: Conjunctivae normal. Cardiovascular: Rate and Rhythm: Normal rate and regular rhythm. Heart sounds: No murmur heard. Pulmonary: Effort: Pulmonary effort is normal. Breath sounds: Normal breath sounds. Musculoskeletal: General: Normal range of motion. Neurological: General: No focal deficit present. Mental Status: She is alert and oriented to person, place, and time. Mental status is at baseline. Psychiatric: Mood and Affect: Mood normal. Behavior: Behavior normal. Thought Content: Thought content normal. Judgment: Judgment normal. LABORATORY Results for orders placed or performed during the hospital encounter of 04/30/25 CBC with automated diff Result Value Ref Range WBC 9.2 3.9 - 10.0 K/??L RBC 4.59 3.93 - 5.22 M/??L Hemoglobin 13.7 11.2 - 15.7 GM/DL Hematocrit 41.8 34.1 - 44.9 % MCV 91 79 - 95 fL MCH 29.8 25.6 - 32.2 pg MCHC 32.8 32.2 - 36.5 GM/DL RDW 14.3 11.6 - 14.4 % Platelets 345 163 - 369 K/CU MM MPV 9.4 9.4 - 12.4 fL % Neutros 52 34 - 71 % % Lymphs 37 19 - 53 % % Monos 8 4 - 13 % % Eos 2 1 - 7 % % Baso 0 0 - 1 % # Neutros 4.80 1.56 - 6.13 K/??L # Lymphs 3.39 1.18 - 3.74 K/??L # Monos 0.71 0.24 - 0.82 K/??L # Eos 0.20 0.04 - 0.54 K/??L # Baso 0.04 0.01 - 0.08 K/??L Immature Granulocytes-Relative 0.40 0.00 - 0.60 % # IG 0.04 0.00 - 0.05 K/uL Comprehensive metabolic panel Result Value Ref Range Sodium 138 136 - 146 meq/L Potassium 3.9 3.5 - 5.1 meq/L Chloride 102 102 - 112 meq/L CO2 28 21 - 32 meq/L Calcium 9.6 8.5 - 10.1 mg/dL Glucose 105 74 - 106 mg/dL BUN 11 7 - 22 mg/dL Creatinine 0.85 0.55 - 1.02 mg/dL BUN/Creatinine 13 8 - 20 Albumin 3.5 3.4 - 5.0 g/dL Alkaline Phosphatase 50 27 - 136 U/L ALT 54 12 - 78 U/L AST 46 (H) 5 - 37 U/L Total Bilirubin 0.2 0.2 - 1.3 mg/dL Protein, Total 7.0 6.4 - 8.2 gm/dL Anion Gap 12 9 - 20 A/G Ratio 1.0 (L) 1.1 - 2.5 Globulin 3.5 1.5 - 4.5 g/dL Osmolality Calc 275.4 mOsm/kg eGFR (mL/min/1.73m2) >60 >=60 mL/min/1.73m2 Screen, urine Result Value Ref Range Preg Test, Ur Negative Negative, Inconclusive ECG 12 lead Result Value Ref Range VENTRICULAR RATE EKG/MIN 82 BPM ATRIAL RATE (MCT) 82 BPM NC Interval 170 ms QRS-INTERVAL (MSEC) 92 ms QT Interval 354 ms QTC Interval 413 ms P [place] 55 degrees R AXIS (MCT) 69 degrees T Wave [place] 65 degrees [place] Diagnosis Normal sinus rhythm Normal ECG Confirmed by Gustavo FITZGERALD SUZANNE ([id number]) on 04/30/2025 4:57:51 PM CXR Narrative & Impression TWO-VIEW CHEST HISTORY: Preop respiratory clearance, shortness of breath, endometrial ablation. COMPARISON: None FINDINGS: Two views of the chest were performed. The heart is normal in size. The mediastinal and hilar contours are unremarkable. The lungs are clear. There is no evidence of pneumonia or edema. There are no pleural effusions. The bony thorax demonstrates no abnormalities. IMPRESSION: Unremarkable two-view chest. Images reviewed, interpreted, dictated and electronically signed by Nithin Matamoros MD Voice scroll machine operator technology (Sensorine) is used for the dictation of this note and sound-alike words might be erroneously placed despite reviewing this note for accuracy. Errors in dictation may reflect use of voice recognition software and not all errors in scroll machine operator may have been detected prior to signing. Exam Ended: 04/30/25 16:00 EDT Last Resulted: 04/30/25 17:34 EDT ASSESSMENT & PLAN: Active Problems: Morbid obesity (HCC) HTN (hypertension) CON (obstructive sleep apnea) GERD (gastroesophageal reflux disease) Migraines RLS (restless legs syndrome) Preop exam Excessive menstaration CON BMI 41.97 GERD -continue pepcid and protonix Migraines -uses propranolol HTN -hold lisinopril day of procedure -hold hctz Insulin resistance -hold metformin 48 hours Hyper hydrosis -continue robinul RLS -continue requip Allergies -continue accolate, zyrtec Anxiety -continue buspar -continue cymbalta -continue zoloft Vit D def, on supplemental Hx of renal stones -continue Rcri 1 EKG nsr Proceed pending labs and cxr Electronically signed by: Kiley Wood PA-C, 04/30/2025 at 3:13 PM Labs and chest x-ray reviewed as above and within acceptable limits Cosigned by Renato Zuniga MD at 05/06/2025 8:42 AM EDT documented in this encounter Procedure Notes * Deepa Goyal RN - 04/30/2025 3:00 PM EDTSummary: MEDICATION INSTRUCTIONS Medication List ASK your doctor about these medications Accolate 20 MG tablet Generic drug: zafirlukast Medication Adjustments for Surgery: Continue until night before surgery Notes to patient: DO NOT TAKE MORNING OF SURGERY Adipex-P 37.5 mg tablet Generic drug: phentermine Medication Adjustments for Surgery: Other (Comment) Notes to patient: NOT TAKING b complex vitamins tablet Notes to patient: STOP TODAY 04/30 busPIRone 7.5 MG tablet Commonly known as: BUSPAR Medication Adjustments for Surgery: Other (Comment) Notes to patient: CAN TAKE MORNING OF SURGERY WITH SMALL SIP OF WATER cetirizine 10 MG tablet Commonly known as: ZyrTEC Medication Adjustments for Surgery: Continue until night before surgery Notes to patient: DO NOT TAKE MORNING OF SURGERY cholecalciferol 125 mcg (5,000 unit) tablet Commonly known as: VITAMIN D3 Medication Adjustments for Surgery: Continue until night before surgery Notes to patient: DO NOT TAKE MORNING OF SURGERY cyclobenzaprine 5 MG tablet Commonly known as: FLEXERIL Medication Adjustments for Surgery: Continue until night before surgery Notes to patient: DO NOT TAKE MORNING OF SURGERY DULoxetine 30 MG capsule Commonly known as: CYMBALTA Medication Adjustments for Surgery: Continue until night before surgery Notes to patient: DO NOT TAKE MORNING OF SURGERY famotidine 40 MG tablet Commonly known as: PEPCID Medication Adjustments for Surgery: Continue until night before surgery Notes to patient: DO NOT TAKE MORNING OF SURGERY fluticasone propionate 50 mcg/actuation nasal spray Commonly known as: FLONASE Medication Adjustments for Surgery: Continue until night before surgery Notes to patient: DO NOT TAKE MORNING OF SURGERY hydroCHLOROthiazide 12.5 mg capsule Commonly known as: MICROZIDE Medication Adjustments for Surgery: Continue until night before surgery Notes to patient: DO NOT TAKE MORNING OF SURGERY Inderal LA 60 MG 24 hr capsule Generic drug: propranoloL Medication Adjustments for Surgery: Continue until night before surgery Notes to patient: DO NOT TAKE MORNING OF SURGERY 1.5/30 (28) 1.5 mg-30 mcg (21)/75 mg (7) per tablet Generic drug: norethindrone-ethinyl estradiol-iron Medication Adjustments for Surgery: Continue until night before surgery Notes to patient: DO NOT TAKE MORNING OF SURGERY lisinopriL 10 MG tablet Commonly known as: ZESTRIL Medication Adjustments for Surgery: Continue until night before surgery Notes to patient: DO NOT TAKE MORNING OF SURGERY meloxicam 7.5 MG tablet Commonly known as: MOBIC Medication Adjustments for Surgery: Continue until night before surgery Notes to patient: DO NOT TAKE MORNING OF SURGERY metFORMIN 500 MG tablet Commonly known as: GLUCOPHAGE Medication Adjustments for Surgery: Continue until night before surgery Notes to patient: DO NOT TAKE MORNING OF SURGERY Missing or Non-Formulary Medication Medication Adjustments for Surgery: Other (Comment) Notes to patient: PROBIOTIC - STOP TODAY 6/3 MULTIVITAMIN-CALCIUM AND IRON ORAL Medication Adjustments for Surgery: Other (Comment) Notes to patient: STOP TODAY 6/3 nitrofurantoin (macrocrystal-monohydrate) 100 MG capsule Commonly known as: MACROBID Take 1 capsule (100 mg total) by mouth 2 (two) times daily. Medication Adjustments for Surgery: Other (Comment) Notes to patient: NOT TAKING pantoprazole 40 MG tablet Commonly known as: PROTONIX Medication Adjustments for Surgery: Continue until night before surgery Notes to patient: DO NOT TAKE MORNING OF SURGERY RobinuL 1 mg tablet Generic drug: glycopyrrolate Medication Adjustments for Surgery: Continue until night before surgery Notes to patient: DO NOT TAKE MORNING OF SURGERY rOPINIRole 0.25 MG tablet Commonly known as: REQUIP Medication Adjustments for Surgery: Continue until night before surgery Notes to patient: DO NOT TAKE MORNING OF SURGERY sertraline 50 MG tablet Commonly known as: ZOLOFT Medication Adjustments for Surgery: Continue until night before surgery Notes to patient: DO NOT TAKE MORNING OF SURGERY Urocit-K 15 15 mEq Tber Generic drug: potassium citrate Medication Adjustments for Surgery: Continue until night before surgery Notes to patient: DO NOT TAKE MORNING OF SURGERY Xyzal 5 MG tablet Generic drug: levocetirizine Medication Adjustments for Surgery: Continue until night before surgery Notes to patient: DO NOT TAKE MORNING OF SURGERY Please stop the following over the counter medication 10 days prior to surgery. Nonsteroidal Anti-Inflammatory Drugs (NSAIDs) Examples: Motrin, Advil, Ibuprofen, Naproxen, Aleve All non-essential vitamins and supplements especially garlic, vitamin E, multivitamin, fish oil If you have questions about specific medication not mentioned please ask or call your surgeon. You may take Tylenol for pain unless allergic or contraindicated by your surgeon. PRE-OPERATIVE BATHING INSTRUCTIONS Put clean sheets on your bed the night before surgery. Wear clean pajamas the night before surgery. Take a shower with plain soap the night before AND morning of surgery. documented in this encounter Plan of Treatment Not on file documented as of this encounter Procedures Procedure Name Priority Date/Time Associated Diagnosis Comments XR CHEST PA AND LATERAL Routine 04/30/2025 4:00 PM EDT Pre-op testing SCREEN, URINE Routine 04/30/2025 3:08 PM EDT Pre-op testing CBC W/ AUTO DIFF Routine 04/30/2025 3:07 PM EDT Pre-op testing COMPREHENSIVE METABOLIC PANEL Routine 04/30/2025 3:07 PM EDT Pre-op testing [id number] 12-LEAD Routine 04/30/2025 1:59 PM EDT Pre-op testing documented in this encounter Results * X-ray chest PA and lateral (04/30/2025 4:00 PM EDT) Anatomical Region Laterality Modality Chest X-Ray 04/30/2025 5:32 PM EDT Impressions 04/30/2025 5:34 PM EDT Unremarkable two-view chest. Images reviewed, interpreted, dictated and electronically signed by Nithin Matamoros MD Voice scroll machine operator technology (Power Scribe) is used for the dictation of this note and sound-alike words might be erroneously placed despite reviewing this note for accuracy. Errors in dictation may reflect use of voice recognition software and not all errors in scroll machine operator may have been detected prior to signing. Narrative 04/30/2025 5:34 PM EDT TWO-VIEW CHEST HISTORY: Preop respiratory clearance, shortness of breath, endometrial ablation. COMPARISON: None FINDINGS: Two views of the chest were performed. The heart is normal in size. The mediastinal and hilar contours are unremarkable. The lungs are clear. There is no evidence of pneumonia or edema. There are no pleural effusions. The bony thorax demonstrates no abnormalities. Procedure Note Nithin Matamoros MD - 04/30/2025 TWO-VIEW CHEST HISTORY: Preop respiratory clearance, shortness of breath, endometrial ablation. COMPARISON: None FINDINGS: Two views of the chest were performed. The heart is normal in size. The mediastinal and hilar contours are unremarkable. The lungs are clear. There is no evidence of pneumonia or edema. There are no pleural effusions. The bony thorax demonstrates no abnormalities. IMPRESSION: Unremarkable two-view chest. Images reviewed, interpreted, dictated and electronically signed by Nithin Matamoros MD Voice scroll machine operator technology (Power Scribe) is used for the dictation of this note and sound-alike words might be erroneously placed despite reviewing this note for accuracy. Errors in dictation may reflect use of voice recognition software and not all errors in scroll machine operator may have been detected prior to signing. us Dandy Duque MD IMG DIAGNOSTIC IMAGING ORDERA BLES Final Result * Screen, urine (04/30/2025 3:08 PM EDT) Preg Test, Ur Negative Negative, Inconclusive 04/30/2025 3:26 PM EDT [facility] Urine 04/30/2025 3:08 PM EDT 04/30/2025 3:08 PM EDT us Dandy Duque MD URINE ORDERABLES Final Result Performing Organization Address City/State/[facility] Co de Phone Number [facility] [address] [place] [address] * (ABNORMAL) Comprehensive metabolic panel (04/30/2025 3:07 PM EDT) Sodium 138 136 - 146 meq/L 04/30/2025 3:32 PM EDT [facility] Potassium 3.9 3.5 - 5.1 meq/L 04/30/2025 3:32 PM EDT [facility] Chloride 102 102 - 112 meq/L 04/30/2025 3:32 PM EDT [facility] CO2 28 21 - 32 meq/L 04/30/2025 3:32 PM EDT [facility] Calcium 9.6 8.5 - 10.1 mg/dL 04/30/2025 3:32 PM EDT [facility] Glucose 105 74 - 106 mg/dL 04/30/2025 3:32 PM EDT [facility] BUN 11 7 - 22 mg/dL 04/30/2025 3:32 PM EDT [facility] Creatinine 0.85 0.55 - 1.02 mg/dL 04/30/2025 3:32 PM EDT [facility] BUN/Creatinine 13 8 - 20 04/30/2025 3:32 PM EDT [facility] Albumin 3.5 3.4 - 5.0 g/dL 04/30/2025 3:32 PM EDT [facility] Alkaline Phosphatase 50 27 - 136 U/L 04/30/2025 3:32 PM EDT [facility] ALT 54 12 - 78 U/L 04/30/2025 3:32 PM EDT [facility] AST 46(H) 5 - 37 U/L 04/30/2025 3:32 PM EDT [facility] Total Bilirubin 0.2 0.2 - 1.3 mg/dL 04/30/2025 3:32 PM EDT [facility] Protein, Total 7.0 6.4 - 8.2 gm/dL 04/30/2025 3:32 PM EDT [facility] Anion Gap 12 9 - 20 04/30/2025 3:32 PM EDT [facility] A/G Ratio 1.0(L) 1.1 - 2.5 04/30/2025 3:32 PM EDT [facility] Globulin 3.5 1.5 - 4.5 g/dL 04/30/2025 3:32 PM T [facility] Osmolality Calc 275.4 mOsm/kg 3:32 PM T [facility] eGFR (mL/min/1.73m2) >60 >=60 mL/min/1.7 3m2 04/30/2025 3:32 PM T [facility] Comment:ESTIMATED GFR IS NOT ACCURATE CREATININE CLEARANCE IN PREDICTING GLOMERULAR FILTRATION RATE. ESTIMATED GFR IS NOT APPLICABLE FOR DIALYSIS PATIENTS. Blood Venipuncture / Unknown 04/30/2025 3:07 PM EDT 04/30/2025 3:07 PM EDT us Dandy Duque MD LAB BLOOD ORDERABLES Final Re sult [facility] [address] [place] [address] * CBC with automated diff (04/30/2025 3:07 PM EDT) WBC 9.2 3.9 - 10.0 K/ L 04/30/2025 3:22 PM EDT [facility] RBC 4.59 3.93 - 5.22 M/ L 04/30/2025 3:22 PM EDT [facility] Hemoglobin 13.7 11.2 - 15.7 GM/DL 04/30/2025 3:22 PM EDT [facility] Hematocrit 41.8 34.1 - 44.9 % 04/30/2025 3:22 PM EDT [facility] MCV 91 79 - 95 fL 04/30/2025 3:22 PM EDT [facility] MCH 29.8 25.6 - 32.2 pg 04/30/2025 3:22 PM EDT [facility] MCHC 32.8 32.2 - 36.5 GM/DL 04/30/2025 3:22 PM EDT [facility] RDW 14.3 11.6 - 14.4 % 04/30/2025 3:22 PM EDT [facility] Platelets 345 163 - 369 K/CU MM 04/30/2025 3:22 PM EDT [facility] MPV 9.4 9.4 - 12.4 fL 04/30/2025 3:22 PM EDT [facility] % Neutros 52 34 - 71 % 04/30/2025 3:22 PM EDT [facility] % Lymphs 37 19 - 53 % 04/30/2025 3:22 PM EDT [facility] % Monos 8 4 - 13 % 04/30/2025 3:22 PM EDT [facility] % Eos 2 1 - 7 % 04/30/2025 3:22 PM EDT [facility] % Baso 0 0 - 1 % 04/30/2025 3:22 PM EDT [facility] # Neutros 4.80 1.56 - 6.13 K/ L 04/30/2025 3:22 PM EDT [facility] # Lymphs 3.39 1.18 - 3.74 K/ L 04/30/2025 3:22 PM EDT [facility] # Monos 0.71 0.24 - 0.82 K/ L 04/30/2025 3:22 PM EDT [facility] # Eos 0.20 0.04 - 0.54 K/ L 04/30/2025 3:22 PM EDT [facility] # Baso 0.04 0.01 - 0.08 K/ L 04/30/2025 3:22 PM EDT [facility] Immature Granulocytes-Re lative 0.40 0.00 - 0.60 % 04/30/2025 3:22 PM EDT [facility] # IG 0.04 0.00 - 0.05 K/uL 04/30/2025 3:22 PM EDT [facility] Blood Venipuncture / Unknown 04/30/2025 3:07 PM EDT 04/30/2025 3:07 PM EDT Narrative [facility] - 04/30/2025 3:22 PM EDT When CBC w/ Auto Diff is ordered the lab will add a Manual Differential as a quality check at no additional charge if: Lymphocytes greater than seventy five percent with normal or increased WBC Monocytes greater than Fifteen percent Basophil greater than four percent Bands >10% or several immature myeloids are seen on scan Blast? Flag noted Atypical Lymph flag noted Dandy Duque MD LAB BLOOD ORDERABLES Final Re sult [facility] [address] [place] [address] * ECG 12 lead (04/30/2025 1:59 PM EDT) VENTRICULAR RATE EKG/MIN 82 BPM GE MUSE ATRIAL RATE (MCT) 82 BPM GE MUSE NC Interval 170 ms GE MUSE QRS-INTERVAL (MSEC) 92 ms GE MUSE QT Interval 354 ms GE MUSE QTC Interval 413 ms GE MUSE P Dunning 55 degrees GE MUSE R AXIS (MCT) 69 degrees GE MUSE T Wave [place] 65 degrees GE MUSE [place] Diagnosis Normal sinus rhythm Normal ECG Confirmed by Gustavo FITZGERALD SUZANNE ([id number]) on 04/30/2025 4:57:51 PM GE MUSE 04/30/2025 1:59 PM EDT 04/30/2025 4:57 PM EDT us Dandy Duque MD ECG ORDERABLES Final Result GE MUSE documented in this encounter Visit Diagnoses Diagnosis Pre-op testing- Primary Unspecified pre-operative examination RLS (restless legs syndrome) Restless legs syndrome (RLS) CON (obstructive sleep apnea) Obstructive sleep apnea (adult) (pediatric) Morbid obesity (HCC) Morbid obesity HTN (hypertension) Unspecified essential hypertension GERD (gastroesophageal reflux disease) Esophageal reflux Migraines Migraine, unspecified, without mention of intractable migraine without mention of status migrainosus RLS (restless legs syndrome) Restless legs syndrome (RLS) documented in this encounter Care Teams Catastrophe Claims Supervisor Relationship Specialty Start Date End Date Tyrell Magana MD [address] [place] [address] PCP - General Family Medicine 11/15/23 documented as of this encounter
--- OUTSIDE RECORDS SUMMARY | 2025-04-30 15:54 | XMS_ITS | Encounter Summary ---
Author Organization [employer] ([place], [place], [place], [place]) Address [address] [place] [address] Care Team Providers Care Manager Project Name Role Phone Tyrell Magana MD Primary Care Provider [phone]- [phone] Encounter Details Date Type Department Care Team (Latest Contact Info) Description 04/30/2025 3:54 PM EDT - 04/30/2025 11:59 PM EDT Hospital Encounter [facility] [address] [place] [address] Dandy Duque MD [address] [facility][1] [address] [place] [address] Discharge Disposition: Home or Self Care Social [...] Date Surinder rded Speak language other than [place]uran at home Not on file 12/16/2023 Want [...] on file documented as of this encounter Medications at Time of Discharge [...] by mouth 2 (two) times daily. 10/29/2023 hydroCHLOROthiaz humera (MICROZIDE) 12.5 mg capsule [...] 10/29/2023 5 documented as of this encounter Plan of Treatment Not on file documented as of this encounter Procedures Procedure Name Priority Date/Time Associated Diagnosis Comments XR CHEST PA AND LATERAL Routine 04/30/2025 4:00 PM EDT Pre-op testing documented in this encounter Results * X-ray chest PA and lateral (04/30/2025 4:00 PM EDT) Anatomical Region Laterality Modality Chest X-Ray 04/30/2025 5:32 PM EDT Impressions 04/30/2025 5:34 PM EDT Unremarkable two-view chest. Images reviewed, interpreted, dictated and electronically signed by Nithin Matamoros MD Voice recording studio set up worker technology (Spoken[employer]ayere) is used for the dictation of this note and sound-alike words might be erroneously placed despite reviewing this note for accuracy. Errors in dictation may reflect use of voice recognition software and not all errors in recording studio set up worker may have been detected prior to signing. [...] electronically signed by Nithin Matamoros MD Voice recording studio set up worker technology (Power Scribe) is used for the dictation of this note and sound-alike words might be erroneously placed despite reviewing this note for accuracy. Errors in dictation may reflect use of voice recognition software and not all errors in recording studio set up worker may have been detected prior to signing. Dandy Duque MD [facility] Final Result documented in this encounter Visit Diagnoses Not on filedocumented in this encounter Care Teams Manager Project Relationship Specialty Start Date End Date Tyrell Magana MD [address] [place] [id number] PCP - General Family Medicine 11/15/23 documented as of this encounter
--- OUTSIDE RECORDS SUMMARY | 2025-05-06 09:19 | XMS_ITS | Encounter Summary ---
Author Organization [employer] ([place], [place], [place], [place]) Address [address] [place] [address] Care Team Providers Care Public Health Dietitian Name Role Phone Tyrell Magana MD Primary Care Provider [phone] Reason for Visit * Auth/Cert (Routine) Specialty Diagnoses / Procedures Referred By Bao bautista Referred To Contact Diagnoses Excessive or frequent menstruation Encounter for gynecological examination with abnormal finding Excessive, frequent and irregular menstruation Secondary dysmenorrhea N92.0 Z01.411 N92.1 N94.5 Procedures AK HYSTEROSCOPY ENDOMETRIAL ABLATION AK LAPS FULG/EXC OVARY VISCERA/PERITONEAL SURFACE ROBOTIC LAPAROSCOPY,RESECTION ENDOMETRIAL ABLATION, ENDOMETRIUM Justice Miller MD [address] [facility] [address] [place] [address] Phone: tel: fax: Referral ID Status Reason Start Date Expiration Date Visits Re quested Visits Authorized [id number] 03/14/2025 1 1 Encounter Details Date Type Department Care Team (Latest Contact Info) Description 05/06/2025 9:19 AM EDT - 05/06/2025 3:19 PM EDT Hospital Encounter [facility] Surgery Department [address] [place] [address] Justice Miller MD [address] [facility] [address] [place] [address] Excessive or frequent menstruation; Encounter for gynecological examination with abnormal finding; Excessive, frequent and irregular menstruation; Secondary dysmenorrhea Discharge Disposition: Home or Self Care Social [...] Date Surinder rded Speak language other than Citizen [place] at home Not on file 12/16/2023 Want help with school or training Not on file 12/16/2023 Substance Use Answer Date Recorded Used prescription meds for non-medical reasons N ot on file 12/16/2023 Used illegal drugs past 12 months Not on file 12/16/2023 Comments No Sex and Gender Information Value Date Recorded Sex Assigned at Female 2022 8:07 PM CDT Legal Sex Female 8:07 PM CDT Gender Identity Female 2022 8:07 PM CDT Sexual Orientation Not on file documented as of this encounter Last Filed Vital Signs Vital Sign Reading Time Taken Comments Blood Pressure 144/71 05/06/2025 2:50 PM EDT Pulse 94 05/06/2025 2:50 PM EDT Temperature 36.9 C (98.4 F) 05/06/2025 2:46 PM EDT Respiratory Rate 18 05/06/2025 2:50 PM EDT Oxygen Saturation 100% 05/06/2025 2:50 PM EDT Inhaled Oxygen Concentration - - Weight 119.9 kg (264 lb 6.4 oz) 025 10:06 AM EDT Height - - Body Mass Index 42.68 04/30/2025 2:50 PM EDT documented in this encounter Discharge Instructions * Discharge Instr - Other Orders* Marisa Hunter RN - 05/06/2025 2:32 PM EDT You have a scopolamine patch behind your ear that was placed 05/06 @ 11:19 AM. Remove it in 72 hours or earlier. Wash hands well after removal to avoid pupil dilation. You had an IV NSAID called Toradol at 2:05 PM. Wait at least 6-8 hours before taking a dose of OTC ibuprofen. You had 5 mg of oxycodone at 2:40 PM. You had a medication called Sugammadex in the operating room. This medication will make control ineffective for up to 7 days. * Attachments The following attachments cannot be sent through Care Everywhere. * General Anesthesia Adult Care After ([place]izen [place]) * Diagnostic Laparoscopy Care After ([place]) * Endometrial Ablation Care After ([place]) documented in this encounter Medications at Time [...] 03/24/2023 zafirlukast (Accolate) 20 MG tablet 10/29/2023 hydroCHLOROthiaz humera (MICROZIDE) 12.5 mg capsule Take 1 capsule (12.5 mg total) by mouth daily. 5 levocetirizine (Xyzal) 5 MG tablet 10/29/2023 5 lisinopriL (PRINIVIL,ZESTRI L) 10 MG tablet Take 1 tablet (10 mg total) by mouth 3 (three) times daily. 10/29/2023 5 norethindrone-et hinyl estradiol-iron (Junel FE 1.5/30, 28,) 1.5 mg-30 mcg (21)/75 mg (7) per tablet 10/29/2023 5 rOPINIRole (REQUIP) 0.25 MG tabletIndication s:restless leg syndrome Take 4 tablets (1 mg total) by mouth daily. 10/29/2023 5 documented as of this encounter H&P Notes * Justice Miller MD - 05/06/2025 12:52 PM EDT History of Present Illness History Of Present Illness Celine Marks is a 39 y.o. female presenting with menorrhagia, aub, pelvic pain. Past 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 She has a past medical history of Allergies, Anxiety, DDD (degenerative disc disease), Facet joint disease, History of left thyroidectomy, HTN (hypertension), Hyperhidrosis, Insulin resistance, Kidney stones, Migraines, CON (obstructive sleep apnea), and PONV (postoperative nausea and vomiting). Surgical History She has a past surgical history that includes lithotripsy,extracorporeal shock wave (eswl) (Bilateral, 11/17/2023); Kidney stone surgery; [place] tooth extraction; Sinus surgery; Colon surgery; and LEFT WRIST SURGERY (Left). 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 She reports that she has never smoked. She has never used smokeless tobacco. She reports that she does not currently use alcohol. She reports that she does not use drugs. Family History Her family history is not on file. Allergies Penicillin and Cephalexin Medications Current Outpatient Medications Medication Instructions b complex vitamins tablet 1 tablet, Daily busPIRone (BUSPAR) 7.5 MG tablet 1 tablet, 2 times daily cetirizine (ZYRTEC) 10 mg, Daily cholecalciferol (VITAMIN D3) 5,000 Units, Daily cyclobenzaprine (FLEXERIL) 5 MG tablet 1 tablet, 2 times daily DULoxetine (CYMBALTA) 30 mg, Daily famotidine (PEPCID) 40 MG tablet 1 tablet, Daily fluticasone propionate (FLONASE) 50 mcg/actuation nasal spray 1 spray, Daily glycopyrrolate (RobinuL) 1 mg tablet No dose, route, or frequency recorded. hydroCHLOROthiazide (MICROZIDE) 12.5 mg, Daily levocetirizine (Xyzal) 5 MG tablet No dose, route, or frequency recorded. lisinopriL (PRINIVIL,ZESTRIL) 10 MG tablet 1 tablet, 3 times daily meloxicam (MOBIC) 7.5 MG tablet TAKE 1 TABLET BY MOUTH EVERY DAY FOR ARTHRITIS metFORMIN (GLUCOPHAGE) 500 MG tablet No dose, route, or frequency recorded. Missing or Non-Formulary Medication PROBIOTIC multivit with calcium,iron,min (MULTIVITAMIN-CALCIUM AND IRON ORAL) No dose, route, or frequency recorded. nitrofurantoin, macrocrystal-monohydrate, (MACROBID) 100 MG capsule 100 mg, oral, 2 times daily norethindrone-ethinyl estradiol-iron (Junel FE 1.5/30, 28,) 1.5 mg-30 mcg (21)/75 mg (7) per tabletNo dose, route, or frequency recorded. pantoprazole (PROTONIX) 40 MG tablet 1 tablet, Daily phentermine (Adipex-P) 37.5 mg tablet No dose, route, or frequency recorded. potassium citrate (Urocit-K 15) 15 mEq TbER No dose, route, or frequency recorded. propranoloL (Inderal LA) 60 MG 24 hr capsule No dose, route, or frequency recorded. rOPINIRole (REQUIP) 1 mg, Daily sertraline (ZOLOFT) 50 MG tablet 1 tablet, Daily zafirlukast (Accolate) 20 MG tablet No dose, route, or frequency recorded. Review of Systems Review of Systems All other systems reviewed and are negative. Last Recorded Vitals Blood pressure (!) 157/97, pulse 113, temperature 97.2 ??F (36.2 ??C), temperature source Temporal Artery, resp. rate 20, weight 119.9 kg (264 lb 6.4 oz), last menstrual period 04/08/2025, SpO2 97%. Physical Exam Diagnostic Results No visits with results within 1 Day(s) from this visit. Latest known visit with results is: Hospital Outpatient Visit on 04/30/2025 Component Date Value Ref Range Status WBC 04/30/2025 9.2 3.9 - 10.0 K/??L Final RBC 04/30/2025 4.59 3.93 - 5.22 M/??L Final Hemoglobin 04/30/2025 13.7 11.2 - 15.7 GM/DL Final Hematocrit 04/30/2025 41.8 34.1 - 44.9 % Final MCV 04/30/2025 91 79 - 95 fL Final MCH 04/30/2025 29.8 25.6 - 32.2 pg Final MCHC 04/30/2025 32.8 32.2 - 36.5 GM/DL Final RDW 04/30/2025 14.3 11.6 - 14.4 % Final Platelets 04/30/2025 345 163 - 369 K/CU MM Final MPV 04/30/2025 9.4 9.4 - 12.4 fL Final % Neutros 04/30/2025 52 34 - 71 % Final % Lymphs 04/30/2025 37 19 - 53 % Final % Monos 04/30/2025 8 4 - 13 % Final % Eos 04/30/2025 2 1 - 7 % Final % Baso 04/30/2025 0 0 - 1 % Final # Neutros 04/30/2025 4.80 1.56 - 6.13 K/??L Final # Lymphs 04/30/2025 3.39 1.18 - 3.74 K/??L Final # Monos 04/30/2025 0.71 0.24 - 0.82 K/??L Final # Eos 04/30/2025 0.20 0.04 - 0.54 K/??L Final # Baso 04/30/2025 0.04 0.01 - 0.08 K/??L Final Immature Granulocytes-Relative 04/30/2025 0.40 0.00 - 0.60 % Final # IG 04/30/2025 0.04 0.00 - 0.05 K/uL Final Sodium 04/30/2025 138 136 - 146 meq/L Final Potassium 04/30/2025 3.9 3.5 - 5.1 meq/L Final Chloride 04/30/2025 102 102 - 112 meq/L Final CO2 04/30/2025 28 21 - 32 meq/L Final Calcium 04/30/2025 9.6 8.5 - 10.1 mg/dL Final Glucose 04/30/2025 105 74 - 106 mg/dL Final BUN 04/30/2025 11 7 - 22 mg/dL Final Creatinine 04/30/2025 0.85 0.55 - 1.02 mg/dL Final BUN/Creatinine 04/30/2025 13 8 - 20 Final Albumin 04/30/2025 3.5 3.4 - 5.0 g/dL Final Alkaline Phosphatase 04/30/2025 50 27 - 136 U/L Final ALT 04/30/2025 54 12 - 78 U/L Final AST 04/30/2025 46 (H) 5 - 37 U/L Final Total Bilirubin 04/30/2025 0.2 0.2 - 1.3 mg/dL Final Protein, Total 04/30/2025 7.0 6.4 - 8.2 gm/dL Final Anion Gap 04/30/2025 12 9 - 20 Final A/G Ratio 04/30/2025 1.0 (L) 1.1 - 2.5 Final Globulin 04/30/2025 3.5 1.5 - 4.5 g/dL Final Osmolality Calc 04/30/2025 275.4 mOsm/kg Final eGFR (mL/min/1.73m2) 04/30/2025 >60 >=60 mL/min/1.73m2 Final Preg Test, Ur 04/30/2025 Negative Negative, Inconclusive Final VENTRICULAR RATE EKG/MIN 04/30/2025 82 BPM Final ATRIAL RATE (MCT) 04/30/2025 82 BPM Final AK Interval 04/30/2025 170 ms Final QRS-INTERVAL (MSEC) 04/30/2025 92 ms Final QT Interval 04/30/2025 354 ms Final QTC Interval 04/30/2025 413 ms Final P [place] 04/30/2025 55 degrees Final R AXIS (MCT) 04/30/2025 69 degrees Final T Wave [place] 04/30/2025 65 degrees Final [place] Diagnosis 04/30/2025 Final Value:Normal sinus rhythm Normal ECG Confirmed by Gustavo FITZGERALD SUZANNE ([id number]) on 04/30/2025 4:57:51 PM X-ray chest PA and lateral Narrative: TWO-VIEW CHEST HISTORY: Preop respiratory clearance, shortness of breath, endometrial ablation. COMPARISON: None FINDINGS: Two views of the chest were performed. The heart is normal in size. The mediastinal and hilar contours are unremarkable. The lungs are clear. There is no evidence of pneumonia or edema. There are no pleural effusions. The bony thorax demonstrates no abnormalities. Impression: Unremarkable two-view chest. Images reviewed, interpreted, dictated and electronically signed by Nithin Matamoros MD Voice billboard poster helper technology ([employer]) is used for the dictation of this note and sound-alike words might be erroneously placed despite reviewing this note for accuracy. Errors in dictation may reflect use of voice recognition software and not all errors in billboard poster helper may have been detected prior to signing. Assessment & Plan AUB Pelvic pain Dysmenorrhea Bmi Laparoscopy Hsc d/c endometrial ablation Electronically signed by: Justice Miller MD, 05/06/2025 at 12:52 PM documented in this encounter OR Notes * Op Note - Justice Miller MD - 05/06/2025 2:53 PM EDT DATE OF PROCEDURE: 05/06/2025 PREOPERATIVE DIAGNOSES: Menorrhagia, pelvic pain. PROCEDURES PERFORMED: Laparoscopic-assisted laparoscopy with diagnosis of minimal endometriosis. Hysteroscopy, D and C, endometrial ablation. HEAD BAKER: Caesar Becker. ESTIMATED BLOOD LOSS: Minimal. COMPLICATIONS: None immediate. Please note the patient provided informed consent. We talked about all areas of morbidity and mortality. She accepted all risks wholeheartedly, and we proceeded with the case. All pros and cons were discussed. She did receive preoperative antibiotics and DVT prophylaxis. ANESTHESIA: IV sedation with general and local. DESCRIPTION OF PROCEDURE: The patient was given preoperative antibiotics and DVT prophylaxis. She was taken to the operative suite, placed in dorsal position in stirrups, prepped and draped in the usual fashion. EUA was performed. Sponge stick was placed in the vaginal cuff. Under sterile technique, using a Veress needle hanging drop technique, we inflated the abdomen and created pneumoperitoneum. Scope and trocar were placed under direct visualization. We had the robot ready for procedure. However, we did use a 5 mm scope to evaluate the pelvis and the uterus. The uterus appeared to be mid to anteverted positioned. Ovaries were free. There was no definitive endometriosis, however, some of the small petechia appearing, two small minimal areas that could be early endometriosis. The ovaries were free. The tubes were free. They were well visualized in the uterus due to the patient's BMI. I went down below and performed the secondary portion of the procedure. She did have a Butcher in place. The uterus was somewhat friable, and bivalved speculum was used to visualize the cervix. The uterus was sounded to 7 cm, and we carefully dilated the cervix in careful concise fashion, placed a hysteroscope, visualized intrauterine contents. Sharp curettage and polyp forceps were used to sample the endometrial lining. The NovaSure endometrial ablation system was used following the crop farmers's recommendations. The uterine cavity was tested before the procedure was begun. After the test was completed and passing, we proceeded to perform the ablation of the endometrium. This was done without any obvious complications. Then, the device was removed. I then placed a Kronner retractor intrauterine and then after I changed my gown and garb, went up again performing the laparoscopy, and evaluated the uterus, tubes, and ovaries. There did not appear to be any injury or any other pathology that was noted, though there was some adhesive disease on the right side of her small colon to the lateral side. At the end of the procedure, pneumoperitoneum was relieved. Wounds were then closed with Monocryl and Vicryl suture. The patient went to recovery room in satisfactory condition. She will be discharged home to follow up my office. Pain medications will be called in and antinausea medications as needed. If she has any problems, she is to call, and we are available for care 24 hours a day. /[id number] Justice Miller MD GV/AQ / GV / AQS /[id number] documented in this encounter Plan of Treatment Not on file documented as of this encounter Procedures Procedure Name Priority Date/Time Associated Diagnosis Comments NOVA GLUCOSE POC Routine 05/06/2025 2:12 PM EDT TISSUE EXAM ([place]) AP Routine 05/06/2025 1 :43 PM EDT Excessive or frequent menstruation Encounter for gynecological examination with abnormal finding Excessive, frequent and irregular menstruation Secondary dysmenorrhea AK HYSTEROSCOPY ENDOMETRIAL ABLATION 05/06/2025 12:58 PM EDT Excessive or frequent menstruation Encounter for gynecological examination with abnormal finding Excessive, frequent and irregular menstruation Secondary dysmenorrhea Case Notes This case needs to be Robotic per TEJAS Love AK LAPS ABD PRTM&OMENTUM DX W/WO SPEC BR/WA SPX 05/06/2025 12:58 PM EDT Excessive or frequent menstruation Encounter for gynecological examination with abnormal finding Excessive, frequent and irregular menstruation Secondary dysmenorrhea Case Notes This case needs to be Robotic per TEJAS Love EKG-SCANNED 05/06/2025 documented in this encounter Results * Glucose, Nova Meter (05/06/2025 2:12 PM EDT) POC-GLUCOSE 104 70 - 110 mg/dL 05/06/2025 2:13 PM EDT [facility] Comment: In the event of poor peripheral blood flow, venous or arterial blood should be used due to the potential of erroneous results. No action Require Doll Eye Setter [id number] 05/06/2025 2:13 PM EDT [facility] Blood WHOLE BLOOD / Unknown 05/06/2025 2:12 PM EDT 05/06/2025 2:13 PM EDT Narrative [facility] - 05/06/2025 2:13 PM EDT Doll Eye Setter ID is - [id number] Justice Miller MD POINT OF CARE TEST ORDERABLES Final Result [facility] [address] [facility] [address], [facility] [phone] * Tissue Exam (05/06/2025 1:43 PM EDT) AP RESULT See Note: [facility] Comment: [facility] [address] [place] [address] or [phone] Heath Pruett M.D., Refining Engineer PATIENT NAME LABORATORY NO. [address]KS. [id number] AGE SEX SSN CLIENT REF # [facility] 39 1985 F [id number] [address] [place] [employer] [place] REQUESTING Jalil. ATTENDING [place] [address] JUSTICE MILLER DATE COLLECTED DATE RECEIVED DATE REPORTED 05/06/2025 05/06/2025 05/07/2025 DIAGNOSIS: ENDOMETRIUM, CURETTINGS: Benign endometrium exhibiting changes of exogenous progestin effect Negative for atypical hyperplasia/malignancy CLINICAL HISTORY: Excessive and frequent menstruation with regular cycle, encounter for gynecological examination (general) (routine) with abnormal findings, excessive and frequent menstruation with irregular cycle, secondary dysmenorrhea SPECIMENS RECEIVED: ENDOMETRIUM, CURETTINGS MICROSCOPIC DESCRIPTION: Tissue blocks are prepared and slides are examined microscopically on all specimens. See diagnosis for details. Professional interpretation rendered by Ailyn Siddiqui M.D., F.C.A.P. at [facility] [employer], [address] [place] [address]. GROSS DESCRIPTION: Labeled endometrial curettings consists of multiple pieces of rocha-brown soft tissue measuring 3.0 x 2.5 x 0.6 cm in aggregate. Specimens are filtered and submitted entirely in 3 blocks. BKO REVIEWED, DIAGNOSED AND ELECTRONICALLY SIGNED BY: Ailyn Siddiqui M.D., Liyah CPT CODES: [id number] Tissue SPECIMEN FROM ENDOMETRIUM OBTAINED BY CURETTAGE / Unknown 05/06/2025 1:43 PM EDT us Justice Miller MD PATHOLOGY/CYTOLOGY ORDERABLES Final Result Performing Organization Address City/State/[facility] Co de Phone Number [facility] [address] [place] [address] * EKG-SCANNED (05/06/2025) Narrative 05/06/2025 Ordered by an unspecified provider. us Default Scanning Provider SCAN ORDERS Final Result documented in this encounter Visit Diagnoses Diagnosis Excessive or frequent menstruation Encounter for gynecological examination with abnormal finding Excessive, frequent and irregular menstruation Excessive or frequent menstruation Secondary dysmenorrhea Dysmenorrhea Diabetes mellitus, type 2 (HCC) Type II or unspecified type diabetes mellitus without mention of complication, not stated as uncontrolled documented in this encounter Administered Medications Inactive Administered Medications - up to 3 most recent administrations Medication Order MAR Action Action Date Dose Rate Site electrolyte-R (NORMOSOL-R) infusion intravenous, Continuous, Starting on Tue05/06/25 at 1000, Pre-op New Bag 05/06/2025 1:34 PM EDT 150 mL/hr 150 mL/hr New Bag 05/06/2025 11:19 AM EDT famotidine (PEPCID) tablet 20 mg 20 mg Once, oral, On Tue05/06/25 at 1000, For 1 dose, Pharmacist to renally dose if CrCl is less than 50 mL/min or on CRRT., Pre-op Given 05/06/2025 11:00 AM EDT 20 mg fentaNYL PF (SUBLIMAZE) injection 25 mcg 25 mcg Every 5 min PRN, intravenous, severe pain (7-10), First Line for pain moderate or greater, Starting on Tue05/06/25 at 1401, For 4 doses, Maximum cumulative dose 100 mcg. If maximum dose is reached, proceed to 2nd Line agent., PACU HYDROmorphone (DILAUDID) injection 0.5 mg 0.5 mg Every 10 min PRN, intravenous, severe pain (7-10), 2nd Line agent after max dose Fentanyl given if ordered., Starting on Tue05/06/25 at 1401, For 4 doses, Maximum cumulative dose 2 mg, PACU, PACU ondansetron (ZOFRAN) injection 4 mg 4 mg Every 15 min PRN, intravenous, nausea, Starting on Tue05/06/25 at 1401, For 2 doses, 1st line for nausea For IV push, give over 2 - 5 minutes., PACU oxyCODONE (ROXICODONE) immediate release tablet 5 mg 5 mg Once as needed, oral, moderate pain (4-6), severe pain (7-10), For patients going home if they have not received hydromorphone or morphine., Starting on Tue05/06/25 at 1401, For 1 dose, Look-alike/Sound-alike medication, PACU Given 05/06/2025 2:40 PM EDT 5 mg scopolamine (TRANSDERM-SCOP) patch 1 mg/72 hr 1.5 mg Once (1 patch), transdermal (scopolamine), Administer over 72 Hours, On Tue05/06/25 at 1030, For 1 dose Patch Applied 05/06/2025 11:19 AM EDT 1.5 mg Behind Right Ear documented in this encounter Active and Recently Administered Medications Times are shown in EDT. Scheduled Medication Order 05/04/2025 05/05/2025 05/06/2025 aztreonam (AZACTAM) 2 g in sodium chloride 0.9 % (NS) MBP IVPB 2 g Once, intravenous, at 200 mL/hr, On Tue05/06/25 at 1330, For 1 dose, Please choose an indication: Surgical Prophylaxis 1308 (Handoff - Prov ider: Sindy Arteaga RN)1310 (Stopped - Provider: Chery Gill CRNA)1440 (Not Given - Provider: Marisa Hunter RN - Reason: Dose previously given) clindamycin (CLEOCIN) IVPB 900 mg in dextrose 5 % 50 mL (premix) 900 mg Once, intravenous, Administer over 60 Minutes, On Tue05/06/25 at 1330, For 1 dose, Please choose an indication: Surgical Prophylaxis 1309 (Handoff - Prov ider: Sindy Arteaga RN)1310 (Stopped - Provider: Chery Gill CRNA)1440 (Not Given - Provider: Marisa Hunter RN - Reason: Dose previously given) famotidine (PEPCID) tablet 20 mg (COMPLETED) 20 mg Once, oral, On Tue05/06/25 at 1000, For 1 dose, Pharmacist to renally dose if CrCl is less than 50 mL/min or on CRRT., Pre-op 1100 (Given - Provid er: Sindy Arteaga RN) scopolamine (TRANSDERM-SCOP) patch 1 mg/72 hr 1.5 mg Once (1 patch), transdermal (scopolamine), Administer over 72 Hours, On Tue05/06/25 at 1030, For 1 dose 1119 (Patch Applied - Provider: Sindy Arteaga RN)1519 (Due: Patch Removed - Provider: Automatic Discharge Provider - Comment: Time automatically adjusted from order being discontinued) Continuous Medication Order 05/04/2025 05/05/2025 05/06/2025 electrolyte-R (NORMOSOL-R) infusion intravenous, Continuous, Starting on Tue05/06/25 at 1000, Pre-op 1119 (New Bag - Prov ider: Sindy Arteaga RN)1334 (New Bag - Provider: Chery Gill CRNA) PRN Medication Order 05/04/2025 05/05/2025 05/06/2025 fentaNYL PF (SUBLIMAZE) injection 25 mcg 25 mcg Every 5 min PRN, intravenous, severe pain (7-10), First Line for pain moderate or greater, Starting on Tue05/06/25 at 1401, For 4 doses, Maximum cumulative dose 100 mcg. If maximum dose is reached, proceed to 2nd Line agent., PACU HYDROmorphone (DILAUDID) injection 0.5 mg 0.5 mg Every 10 min PRN, intravenous, severe pain (7-10), 2nd Line agent after max dose Fentanyl given if ordered., Starting on Tue05/06/25 at 1401, For 4 doses, Maximum cumulative dose 2 mg, PACU, PACU lidocaine-epinephrine (XYLOCAINE W/EPI) 1 %-1:100,000 injection (CANCELED) As needed, Starting on Tue05/06/25 at 1331, Intra-op 1331 (Given - Provid er: Justice Miller MD) ondansetron (ZOFRAN) injection 4 mg 4 mg Every 15 min PRN, intravenous, nausea, Starting on Tue05/06/25 at 1401, For 2 doses, 1st line for nausea For IV push, give over 2 - 5 minutes., PACU oxyCODONE (ROXICODONE) immediate release tablet 5 mg (COMPLETED) 5 mg Once as needed, oral, moderate pain (4-6), severe pain (7-10), For patients going home if they have not received hydromorphone or morphine., Starting on Tue05/06/25 at 1401, For 1 dose, Look-alike/Sound-alike medication, PACU 1440 (Given - Provid er: Marisa Hunter RN) sodium chloride (NS) 0.9 % irrigation solution (CANCELED) As needed, Starting on Tue05/06/25 at 1332, Intra-op 1332 (Given - Provid er: Justice Miller MD) documented in this encounter Care Teams Public Health Dietitian Relationship Specialty Start Date End Date Tyrell Magana MD [address] [place] [address] PCP - General Family Medicine 11/15/23 documented as of this encounter
--- OUTSIDE RECORDS SUMMARY | 2025-05-06 12:00 | XMS_ITS | Encounter Summary ---
Author Organization [employer] ([place], [place], [place], [place]) Address [address] [place] [address] Care Team Providers Care Senior Software Quality Analyst Name Role Phone Tyrell Magana MD Primary Care Provider [phone]- [phone] Reason for Visit * Auth/Cert (Routine) Specialty Diagnoses / Procedures Referred By Bao bautista Referred To Contact Diagnoses Excessive or frequent menstruation Encounter for gynecological examination with abnormal finding Excessive, frequent and irregular menstruation Secondary dysmenorrhea N92.0 Z01.411 N92.1 N94.5 Procedures [place] HYSTEROSCOPY ENDOMETRIAL ABLATION [place] LAPS FULG/EXC OVARY VISCERA/PERITONEAL SURFACE ROBOTIC LAPAROSCOPY,RESECTION ENDOMETRIAL ABLATION, ENDOMETRIUM [place] Miller MD [address] [facility] [address] [place] [address] Phone: tel: fax: Referral ID Status Reason Start Date Expiration Date Visits Re quested Visits Authorized [id number] 03/14/2025 1 1 Encounter Details Date Type Department Care Team (Late st Contact Info) Description 05/06/2025 12:00 PM EDT - 05/06/2025 1:52 PM EDT Surgery [facility] Surgery Department [address] [place] [address] [place] Miller MD [address] [facility] [address] [place] [address] Diagnostic LAPAROSCOPY, ENDOMETRIAL ABLATION 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 Tobacco Use Types Packs/Day Years [...] Date Surinder rded Speak language other than Nepali at home Not on file 12/16/2023 Want [...] Sign Reading Time Taken Comments Blood Pressure 157/97 05/06/2025 10:06 AM EDT Pulse 113 05/06/2025 10:06 AM EDT Temperature 36.2 C (97.2 F) 05/06/2025 10:06 AM EDT Respiratory Rate 20 05/06/2025 10:0 6 AM EDT Oxygen Saturation 97% 05/06/2025 10: 06 AM EDT Inhaled Oxygen Concentration - - Weight [...] Everywhere. * General Anesthesia Adult Care After (Nepali) * Diagnostic Laparoscopy Care After (Nepali) * Endometrial Ablation Care After (Nepali) documented in this encounter Medications at Time [...] mcg (21)/75 mg (7) per tablet 10/29/2023 rOPINIRole (REQUIP) 0.25 MG tabletIndication s:restless leg [...] wave (eswl) (Bilateral, 11/17/2023); Kidney stone surgery; [place] tooth extraction; Sinus surgery; Colon surgery; and [...] ATRIAL RATE (MCT) 04/30/2025 82 BPM Final [place] Interval 04/30/2025 170 ms Final QRS-INTERVAL (MSEC) 04/30/2025 92 ms Final QT Interval 04/30/2025 354 ms Final QTC Interval 04/30/2025 413 ms Final P [place] 04/30/2025 55 degrees Final R AXIS (MCT) 04/30/2025 69 degrees Final T Wave [place] 04/30/2025 65 degrees Final [place] Diagnosis 04/30/2025 Final Value:Normal sinus rhythm Normal [...] electronically signed by Nithin Matamoros MD Voice jig bore tool maker technology (Power Scribe) is used for the dictation of this note and sound-alike words might be erroneously placed despite reviewing this note for accuracy. Errors in dictation may reflect use of voice recognition software and not all errors in jig bore tool maker may have been detected prior to signing. [...] endometriosis. Hysteroscopy, D and C, endometrial ablation. WEIGHT LOSS PHYSICIAN: Caesar Becker. ESTIMATED BLOOD LOSS: Minimal. COMPLICATIONS: [...] endometrial ablation system was used following the retail warehouse supervisor's recommendations. The uterine cavity was tested before [...] available for care 24 hours a day. /[id number] [place] Miller MD GV/AQ / GV / AQS /[id number] documented in this encounter Plan of Treatment Not on file documented as of this encounter Procedures Procedure Name Priority Date/Time Associated Diagnosis Comments NOVA GLUCOSE POC Routine 05/06/2025 2:12 PM EDT TISSUE EXAM ([place]) AP Routine 05/06/2025 1 :43 PM EDT Excessive or frequent menstruation Encounter for gynecological examination with abnormal finding Excessive, frequent and irregular menstruation Secondary dysmenorrhea [place] HYSTEROSCOPY ENDOMETRIAL ABLATION 05/06/2025 12:58 PM EDT Excessive or frequent menstruation Encounter for gynecological examination with abnormal finding Excessive, frequent and irregular menstruation Secondary dysmenorrhea Case Notes This case needs to be Robotic per TEJAS Love [place] LAPS ABD PRTM&OMENTUM DX W/WO SPEC BR/WA [...] - 110 mg/dL 05/06/2025 2:13 PM EDT [facility] Comment: In the event of poor peripheral blood flow, venous or arterial blood should be used due to the potential of erroneous results. No action Require Shucker [id number] 05/06/2025 2:13 PM EDT [facility] Blood WHOLE BLOOD / Unknown 05/06/2025 2:12 PM EDT 05/06/2025 2:13 PM EDT Narrative [facility] - 05/06/2025 2:13 PM EDT Shucker ID is - [id number] [place] Miller MD POINT OF CARE TEST ORDERABLES Final Result [facility] [address] [place] [address], [facility] [phone] * Tissue Exam (05/06/2025 1:43 PM EDT) AP RESULT See Note: [facility] Comment: [facility] [address] [place] [address] or [phone] Heath Pruett M.D., Internet Developer PATIENT NAME LABORATORY NO. [address] CEL[address] MARKS. [id number] AGE SEX SSN CLIENT REF # [facility] 39 1985 F [id number] [address] REQUESTING Gustavo [place] [address] JUSTICE MILLER DATE COLLECTED DATE RECEIVED DATE [...] rendered by Ailyn Siddiqui M.D., F.C.A.P. at [employer], [address] [place] [address]. GROSS DESCRIPTION: Labeled endometrial curettings consists of multiple pieces of rocha-brown soft tissue measuring 3.0 x 2.5 x 0.6 cm in aggregate. Specimens are filtered and submitted entirely in 3 blocks. BKO REVIEWED, DIAGNOSED AND ELECTRONICALLY SIGNED BY: Ailyn Siddiqui M.D., F.C.A.P. CPT CODES: [id number] Tissue SPECIMEN FROM ENDOMETRIUM OBTAINED BY CURETTAGE / Unknown 05/06/2025 1:43 PM EDT [place] Miller MD PATHOLOGY/CYTOLOGY ORDERABLES Final Result [facility] [address] [place] [address] * EKG-SCANNED (05/06/2025) Narrative 05/06/2025 Ordered by [...] mention of complication, not stated as uncontrolled Excessive or frequent menstruation Encounter for gynecological examination with abnormal finding Excessive, frequent and irregular menstruation Excessive or frequent menstruation Secondary dysmenorrhea Dysmenorrhea documented in this encounter Administered Medications Inactive [...] PACU lidocaine-epinephrine (XYLOCAINE W/EPI) 1 %-1:100,000 injection As needed, Starting on Tue05/06/25 at 1331, Intra-op Given 05/06/2025 1:31 PM EDT 6 mLs Abdominal Tissue ondansetron (ZOFRAN) injection 4 mg 4 mg [...] AM EDT 1.5 mg Behind Right Ear sodium chloride (NS) 0.9 % irrigation solution As needed, Starting on Tue05/06/25 at 1332, Intra-op Given 05/06/2025 1:32 PM EDT 1,000 mLs documented in this encounter Active and Recently [...] MD) documented in this encounter Care Teams Senior Software Quality Analyst Relationship Specialty Start Date End Date Tyrell Magana MD [address] [place] [address] [place] [address] PCP - General Family Medicine 11/15/23 documented as of this encounter
--- OUTSIDE RECORDS SUMMARY | 2025-05-06 12:59 | XMS_ITS | Encounter Summary ---
Author Organization [email or web address] ([place], [place], [place], [place]) Address [address] [place] [address] Care Team Providers Care Tire Repairer Name Role Phone Tyrell Magana MD Primary Care Provider +1- [phone] Reason for Visit * Auth/Cert (Routine) Specialty Diagnoses / Procedures Referred By Bao t Referred To Contact Diagnoses Excessive or frequent menstruation Encounter for gynecological examination with abnormal finding Excessive, frequent and irregular menstruation Secondary dysmenorrhea N92.0 Z01.411 N92.1 N94.5 Procedures [place] HYSTEROSCOPY ENDOMETRIAL ABLATION [place] LAPS FULG/EXC OVARY VISCERA/PERITONEAL SURFACE ROBOTIC LAPAROSCOPY,RESECTION ENDOMETRIAL ABLATION, ENDOMETRIUM Dandy Duque MD [address] [facility] [address] [place] [address] Phone: tel: fax: Referral ID Status Reason Start Date Expiration Date Visits Re quested Visits Authorized [id number] 03/14/2025 1 1 Encounter Details Date Type Department Care Team (Late st Contact Info) Description 05/06/2025 12:59 PM EDT Anesthesia Event [facility] Surgery Department [address] [place] [address] Chery Gill CRNA [address] [place] [address] Efren Mcfarland MD [address] [place] [address] Anesthesia Record Procedure Summary Procedure Name Responsible [...] Drains, and Airways Type Details Placement Removal Peripheral IV Placement Date: 08/22; Placement Time: [...] CRNA 05/06/25 1409 by Chery Gill CRNA Wound 05/06/25; 1326; Inci mercy; Abdomen; Not applicable; sites x 3; 06/12/25; 0956; Unknown 05/06/25 1326 by Roberto Carlos Aviles RN 06/12/25 0956 by Maia Arredondo RN Wound 05/06/25; 1326; Inci mercy; Perineum; Not applicable; mesh panty; 06/12/25; 0957; Unknown 05/06/25 1326 by Roberto Carlos Aviles RN 06/12/25 0957 by Maia Arredondo RN documented in this encounter 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 Tobacco [...] Date Surinder rded Speak language other than Persian at home Not on file 12/16/2023 Want [...] Procedure Summary Date: 05/06/25 Room / Location: [facility] OR OPERATING ROOM Anesthesia Start: 1259 Anesthesia Stop: [...] ENDOMETRIAL ABLATION Special Equipment ABLATION, ENDOMETRIUM Location: [facility] OR OPERATING ROOM Surgeons: Dandy Duque MD Relevant [...] discussed with patient who. Plan discussed with CRIB TENDER. documented in this encounter Plan of Treatment [...] mg documented in this encounter Care Teams Tire Repairer Relationship Specialty Start Date End Date Tyrell Magana MD [address] [place] [address] [place] [address] PCP - General Family Medicine 11/15/23 documented as of this encounter
--- OUTSIDE RECORDS SUMMARY | 2025-06-06 10:30 | XMS_ITS | Encounter Summary ---
Author Organization [facility] Address [address] [place] [address] Care Team Providers Care Manager Gas Name Role Phone Tyrell Magana MD Primary Care Provider [phone]- [phone] Reason for Referral * Durable Medical Equipment (Routine) - Authorized Specialty Diagnoses / Procedures Referred By Contac t Referred To Contact Diagnoses CON (obstructive sleep apnea) Procedures PAP Therapy Coreen Devi APRN [address] [place] [address] [place] [address] Phone: tel: fax: [facility] [address] [place] [address] Phone: tel: fax: Referral ID Status Reason Start Date Expiration Date V isits Requested Visits Authorized [id number] Authorized 06/06/2025 09/05/2026 1 1 Reason for Visit * Reason Comments Sleep Apnea Follow-up Encounter Details Date Type Department Care Team (Late st Contact Info) Description 06/06/2025 10:30 AM EDT Office Visit [facility] [address] [place] [address] Coreen Devi APRN [address] [place], [place] [id number] CON (obstructive sleep apnea) (Primary Dx) 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 Tobacco Use Types Packs/Day Years Used Date Smoking Tobacco: Never Passive Smoke Exposure: Never Smokeless Tobacco: Never Alcohol Use Standard Drinks/Week Comments Never 0 (1 standard drink = 0.6 oz pur e alcohol) Comments No Sex and Gender Information Value Date Recorded Sex Assigned at Female 06/02/2025 9:30 PM EDT Legal Sex Female 12:13 PM EDT Gender Identity Not on file Sexual Orientation Straight 06/02/2025 9: 30 PM EDT documented as of this encounter Last Filed Vital Signs Vital Sign Reading Time Taken Comments Blood Pressure 130/84 06/06/2025 10:46 AM EDT Pulse 89 06/06/2025 10:46 AM EDT Temperature - - Respiratory Rate - - Oxygen Saturation 97% 06/06/2025 10:46 AM EDT Inhaled Oxygen Concentration - - Weight 122 kg (270 lb) 06/06/2025 10:46 AM EDT Height 167.6 cm (5' 6 ) 06/06/2025 10:46 AM EDT Body Mass Index 43.58 06/06/2025 10:46 AM EDT documented in this encounter Progress Notes * Coreen Devi APRN - 06/06/2025 11:11 AM EDTAssociated Problem(s): CON (obstructive sleep apnea) Patient has a baseline AHI of 5. This is mild sleep apnea. Download shows good compliance and control with an AHI 1. Mask fit and airflow are comfortable. Patient denies any daytime sleepiness or fatigue. Patient is receiving benefit from PAP therapy. Plan to continue current treatment. Supply order sent to DME of patient choice. Follow-up in 1 year or sooner for any CON or PAP concerns. * Coreen Devi APRN - 06/06/2025 10:30 AM EDT Images from the original note were not included. Follow-Up Sleep Consult Date: 06/06/2025 Name: Celine Dao : 1985 PCP: Tyrell Magana MD Chief Complaint Patient presents with Sleep Apnea Follow-up Subjective History of Present Illness Celine Dc is a 40 y.o. female who presents today for follow-up on CON. Patient's she is doing overall very well. She states that she just got back from vacation. She states she wears her pap device faithfully. Mask fit and airflow are comfortable. Cardiology and sleep related problem list CON-PSG 01/23/22 baseline AHI 5 Current Settings: 8-13cm Current mask used is FFM Device Functioning Well: Yes Mask Fit Comfortable: Yes Air Flow Comfortable: Yes DME Helpful for Supplies: Yes Sleep is rested: Yes Device Download: The patient's relevant past medical, surgical, family, and social history reviewed and updated in elarm as appropriate. Past 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: Diagnosis Date Allergic Hypertension Kidney stone Migraines Type 2 diabetes mellitus Past Surgical History: Procedure Laterality Date EXTRACORPOREAL SHOCK WAVE LITHOTRIPSY (ESWL) Bilateral 04/30/2022 Procedure: EXTRACORPOREAL SHOCKWAVE LITHOTRIPSY BILATERAL; Surgeon: Lincoln Dey MD; Location: [facility]; Service: Urology; Laterality: Bilateral; KIDNEY STONE SURGERY SINUS SURGERY OB History No obstetric history on file. Allergies Allergen Reactions Keflex [Cephalexin] Other (See Comments) Loss of consciousness Penicillins Anaphylaxis Prior to Admission medications Medication Sig Start Date End Date Taking? Authorizing Provider busPIRone (BUSPAR) 7.5 MG tablet TAKE 1 TABLET BY MOUTH TWICE A DAY FOR ANXIETY Ben Quintanilla MD cyclobenzaprine (FLEXERIL) 5 MG tablet Take 1 tablet by mouth 2 (Two) Times a Day. Ben Quintanilla MD DULoxetine (CYMBALTA) 20 MG capsule Take 1 capsule by mouth Every 12 (Twelve) Hours. 03/07/24 Ben Quintanilla MD famotidine (PEPCID) 40 MG tablet Take 1 tablet by mouth Daily. Ben Quintanilla MD fluticasone (FLONASE) 50 MCG/ACT nasal spray fluticasone propionate 50 mcg/actuation nasal spray,suspension [place] 1 spray every day by intranasal route. Ben Quintanilla MD glycopyrrolate (ROBINUL) 1 MG tablet Take 3 tablets by mouth See Admin Instructions. take 2 tabletsby mouth in the morning and 1 in the evening 05/22/19 Ben Quintanilla MD 1.5-30 MG-MCG tablet Take 1 tablet by mouth Daily. 03/31/23 Ben Quintanilla MD lisinopril (PRINIVIL,ZESTRIL) 10 MG tablet Take 1 tablet by mouth Daily. Ben Quintanilla MD meloxicam (MOBIC) 7.5 MG tablet TAKE 1 TABLET BY MOUTH EVERY DAY FOR ARTHRITIS Ben Quintanilla MD metFORMIN ER (GLUCOPHAGE-XR) 500 MG 24 hr tablet TAKE 2 TABLETS BY MOUTH EVERY DAY WITH EVENING MEAL 07/16/19 Ben Quintanilla MD Multiple Vitamins-Minerals (MULTIVITAMIN WITH MINERALS) tablet Take 1 tablet by mouth. Ben Quintanilla MD pantoprazole (PROTONIX) 40 MG EC tablet Take 1 tablet by mouth Daily. Ben Quintanilla MD Potassium Citrate ER 15 MEQ (1620 MG) tablet controlled-release Take 1 tablet by mouth Every 12 (Twelve) Hours. 03/15/24 Ben Quintanilla MD rOPINIRole (REQUIP) 0.25 MG tablet Take 1 tablet by mouth Every Night. 04/10/24 Ben Quintanilla MD zafirlukast (ACCOLATE) 20 MG tablet Take 1 tablet by mouth 2 (Two) Times a Day. 03/20/19 Ben Quintanilla MD History reviewed. No pertinent family history. Objective Vital Signs: BP 130/84 Pulse 89 Ht 167.6 cm (66 ) Wt 122 kg (270 lb) SpO2 97% BMI 43.58 kg/m?? Physical Exam Constitutional: Appearance: Normal appearance. She is obese. Neurological: General: No focal deficit present. Mental Status: She is alert and oriented to person, place, and time. Psychiatric: Mood and Affect: Mood normal. Behavior: Behavior normal. Thought Content: Thought content normal. Judgment: Judgment normal. The following data was reviewed by: Coreen Devi APRN on 06/06/2025: 30-day download 05/06/25 to 06/04/25 I have reviewed and interpreted the data from the download. Assessment and Plan Diagnoses and all orders for this visit: 1. CON (obstructive sleep apnea) (Primary) Assessment & Plan: Patient has a baseline AHI of 5. This is mild sleep apnea. Download shows good compliance and control with an AHI 1. Mask fit and airflow are comfortable. Patient denies any daytime sleepiness or fatigue. Patient is receiving benefit from PAP therapy. Plan to continue current treatment. Supply order sent to DME of patient choice. Follow-up in 1 year or sooner for any CON or PAP concerns. Orders: - PAP Therapy Report if any new/changing symptoms immediately, Sleep risks reviewed (driving, medical, sleep , sedating agents), and Sleep hygiene discussed Follow Up Return in about 1 year (around 06/06/2026) for Yearly CON. Patient was given instructions and counseling regarding her condition or for health maintenance advice. Please see specific information pulled into the AVS if appropriate. documented in this encounter Plan of Treatment Upcoming Encounters Date Type Department Care Team (Late st Contact Info) Description 06/05/2026 10:30 AM EDT Office Visit [facility] [address] [address] Coreen Devi APRN [address] [place] [address] [place] [address] documented as of this encounter Visit Diagnoses Diagnosis CON (obstructive sleep apnea)- Primary Obstructive sleep apnea (adult) (pediatric) documented in this encounter Care Teams Manager Gas Relationship Specialty Start Date End Date Tyrell Magana MD [address] [place] [address] [place] [address] PCP - General Family Medicine 06/03/23 documented as of this encounter
--- OUTSIDE RECORDS SUMMARY | 2025-06-12 06:34 | XMS_ITS | Encounter Summary ---
Author Organization [employer] ([place], [place], [place], [place]) Address [address] [place] [address] Care Team Providers Care Product Development Engineer Name Role Phone Tyrell Magana MD Primary Care Provider [phone] Reason for Visit * Auth/Cert (Routine) Specialty Diagnoses / Procedures Referred By Bao bautista Referred To Contact Diagnoses Trochanteric bursitis, left hip SEE PRIMARY DX Procedures VT EXCISION TROCHANTERIC BURSA/CALCIFICATION BURSECTOMY, HIP [facility] Operating Room [address] [place] [address] Phone: tel: fax: [facility] Operating Room [address] [place] [address] Phone: tel: fax: Referral ID Status Reason Start Date Expiration Date Visits Re quested Visits Authorized [id number] 1 1 Encounter Details Date Type Department Care Team (Latest Contact Info) Description 06/12/2025 6:34 AM EDT - 06/12/2025 11:27 AM EDT Hospital Encounter [facility] Operating Room [address] [place] [address] Vaibhav Chester MD [address] [place] [address] Hip abductor tendinitis, left (Primary Dx) Discharge [...] Date Surinder rded Speak language other than Bhutanese at home Not on file 12/16/2023 Want [...] Care Everywhere. * Hip Arthroscopy Care After (Bhutanese) * General Anesthesia Adult Care After (Bhutanese) documented in this encounter Medications at Time of Discharge aspirin 81 MG EC tablet Take 1 tablet (81 mg total) by mouth daily for 14 days. 14 tablet 06/12/2025 busPIRone (BUSPAR) 7.5 MG tablet Take 1 [...] daily. zafirlukast (Accolate) 20 MG tablet 10/29/2023 ondansetron (ZOFRAN-ODT) 4 MG disintegrating tablet Take 1 tablet (4 mg total) by mouth every 4 (four) hours as needed for nausea or vomiting for up to 7 days. 20 tablet 06/12/2025 oxyCODONE (ROXICODONE) 5 MG immediate release tablet [...] wave (eswl) (Bilateral, 11/17/2023); Kidney stone surgery; [place] tooth extraction; Sinus surgery; Colon surgery; LEFT [...] 127 (H) 70 - 110 mg/dL Final Director Business 06/12/2025 [id number] Final X-ray chest PA and lateral Narrative: [...] electronically signed by Nithin Matamoros MD Voice quality tester technology (Power Scribe) is used for the dictation of this note and sound-alike words might be erroneously placed despite reviewing this note for accuracy. Errors in dictation may reflect use of voice recognition software and not all errors in quality tester may have been detected prior to signing. Assessment & Plan Trochanteric bursitis, left hip -to OR for scheduled procedure CON, CPAP HTN GERD DM II Obesity Migraines RLS Anxiety PONV documented in this encounter OR Notes * Op Note - Vaibhav Chester MD - 06/12/2025 9:43 AM EDT Date: 06/12/2025 Surgeon: Conor Chester M.D. Assistants: Inderjit Ovidio, C.S.A. The clinical nursing assistant was necessary for positioning, draping, retraction, drilling while I held the guide, and wound closure. The cafe assistant allowed the procedure be completed in [...] L Estimated Blood Loss: 10 ml Implants: Jamaal Iconix x2, Alphavent Indications for Procedure: Mr.s [...] GLUCOSE POC Routine 06/12/2025 9:49 AM EDT VT EXCISION TROCHANTERIC BURSA/CALCIFICATION 06/12/2025 8:21 AM EDT Trochanteric bursitis, left hip Case Notes IN 0630, 1h (R), ARTHREX, REGULAR OR TABLE NOVA GLUCOSE POC Routine 06/12/2025 7:21 AM EDT FS_MODEL_IP POCT , URINE Routine 06/12/2025 7:07 AM EDT documented in this encounter Results * (ABNORMAL) Glucose, Nova Meter (06/12/2025 10:58 AM EDT) POC-GLUCOSE 144(H) 70 - 110 mg/dL 06/12/2025 11:00 AM EDT [facility] Comment: In the event of poor peripheral blood flow, venous or arterial blood should be used due to the potential of erroneous results. Protocols Followed Director Business [id number] 06/12/2025 11:00 AM EDT [facility] Blood WHOLE BLOOD / Unknown 06/12/2025 10:58 AM EDT 06/12/2025 11:00 AM EDT Narrative [facility] - 06/12/2025 11:00 AM EDT Director Business ID is - [id number] us Vaibhav Chester MD POINT OF CARE TEST ORDERAB LES Final Result [facility] [address] [phone] * (ABNORMAL) Glucose, Nova Meter (06/12/2025 9:49 AM EDT) POC-GLUCOSE 140(H) 70 - 110 mg/dL 06/12/2025 9:50 AM EDT [facility] Comment: In the event of poor peripheral blood flow, venous or arterial blood should be used due to the potential of erroneous results. Notified Nurse RBV Director Business [id number] 06/12/2025 9:50 AM EDT [facility] Blood WHOLE BLOOD / Unknown 06/12/2025 9:49 AM EDT 06/12/2025 9:50 AM EDT Narrative [facility] - 06/12/2025 9:50 AM EDT Director Business ID is - [id number] us Vaibhav Chester MD POINT OF CARE TEST ORDERAB LES Final Result Performing Organization Address [facility] Co de Phone Number [facility] [address] [phone] * (ABNORMAL) Glucose, Nova Meter (06/12/2025 7:21 AM EDT) POC-GLUCOSE 127(H) 70 - 110 mg/dL 06/12/2025 7:23 AM EDT [facility] Comment: In the event of poor peripheral blood flow, venous or arterial blood should be used due to the potential of erroneous results. Notified Nurse RBV Director Business [id number] 06/12/2025 7:23 AM EDT [facility] Blood WHOLE BLOOD / Unknown 06/12/2025 7:21 AM EDT 06/12/2025 7:23 AM EDT Narrative [facility] - 06/12/2025 7:23 AM EDT Director Business ID is - [id number] us Vaibhav Chester MD POINT OF CARE TEST ORDERAB LES Final Result Performing Organization Address [facility]/ZIP Co de Phone Number [facility] [address] [phone] * POCT , urine (06/12/2025 7:07 AM [...] Pre-op documented in this encounter Care Teams Product Development Engineer Relationship Specialty Start Date End Date Tyrell Magana MD [address] [place] [address] [place] [address] PCP - General Family Medicine 11/15/23 documented as of this encounter
--- OUTSIDE RECORDS SUMMARY | 2025-06-12 08:21 | XMS_ITS | Encounter Summary ---
Author Organization [employer] ([place], [place], [place], [place]) Address [address] [place] [address] Care Team Providers Care Alterations Sewer Name Role Phone Tyrell Magana MD Primary Care Provider +1- [phone] Reason for Visit * Auth/Cert (Routine) Specialty Diagnoses / Procedures Referred By Bao bautista Referred To Contact Diagnoses Trochanteric bursitis, left hip SEE PRIMARY DX Procedures [place] EXCISION TROCHANTERIC BURSA/CALCIFICATION BURSECTOMY, HIP [facility] Operating Room [address] [place] [address] Phone: tel: fax: [facility] Operating Room [address] [place] [address] Phone: tel: fax: Referral ID Status Reason Start Date Expiration Date Visits Re quested Visits Authorized [id number] 1 1 Encounter Details Date Type Department Care Team (Late st Contact Info) Description 06/12/2025 8:21 AM EDT Anesthesia Event [facility] Operating Room [address] [place] [address] Valeri Phillips MD [address] [place], [place] [id number] Irma Reardon CRNA [address] [place], [place] [id number] Anesthesia Record Procedure Summary Procedure Name Responsible [...] (XYLOCAINE) injection 2% 100 m g Lidocaine ([id number] KIT) laryngotrac heal topical soln 4% 4 [...] Procedure Summary Date: 06/12/25 Room / Location: [facility] OR [facility] OPERATING ROOM Anesthesia Start: 820 Anesthesia Stop: [...] and nonlabored ventilation Hydration status: stable Color: Edmond Activity: Moves 4 extremities Inotropes/Vasopressors: N/A No [...] ARTHROSCOPIC BURSECTOMY, POSSIBLE ABDUCTOR REPAIR) (Left) Location: [facility] OR OPERATING ROOM Surgeons: Vaibhav Chester MD [...] HYSTEROSCOPY; Surgeon: Dandy Duque MD; Location: [facility]; 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 Plan discussed with REAL ESTATE SUBAGENT. documented in this encounter Plan of Treatment [...] Units documented in this encounter Care Teams Alterations Sewer Relationship Specialty Start Date End Date Tyrell Magana MD [address] [place] [address] PCP - General Family Medicine 11/15/23 documented as of this encounter
--- OUTSIDE RECORDS SUMMARY | 2025-06-12 09:32 | XMS_ITS | Encounter Summary ---
Author Organization [employer] ([place], [place], [place], [place]) Address [address] [place] [address] Care Team Providers Care Lamination Technician Name Role Phone Tyrell Magana MD Primary Care Provider +1- [phone] Reason for Visit * Auth/Cert (Routine) Specialty Diagnoses / Procedures Referred By Bao bautista Referred To Contact Diagnoses Trochanteric bursitis, left hip SEE PRIMARY DX Procedures [place] EXCISION TROCHANTERIC BURSA/CALCIFICATION BURSECTOMY, HIP [facility] Operating Room [address] [place] [address] Phone: tel: fax: [facility] Operating Room [address] [place] [address] Phone: tel: fax: Referral ID Status Reason Start Date Expiration Date Visits Re quested Visits Authorized [id number] 1 1 Encounter Details Date Type Department Care Team (Late st Contact Info) Description 06/12/2025 9:32 AM EDT - 06/12/2025 11:19 AM EDT Surgery [facility] Operating Room [address] [place] [address] Vaibhav Chester MD [address] [place] [address] (LEFT HIP ARTHROSCOPIC BURSECTOMY, POSSIBLE ABDUCTOR REPAIR) [...] Date Surinder rded Speak language other than Iraqi at home Not on file 12/16/2023 Want [...] Care Everywhere. * Hip Arthroscopy Care After (Iraqi) * General Anesthesia Adult Care After (Iraqi) documented in this encounter Medications at Time [...] wave (eswl) (Bilateral, 11/17/2023); Kidney stone surgery; [place] tooth extraction; Sinus surgery; Colon surgery; LEFT [...] 127 (H) 70 - 110 mg/dL Final Cork Sorter 06/12/2025 [id number] Final X-ray chest PA and lateral Narrative: [...] electronically signed by Nithin Matamoros MD Voice foxing cutting machine operator technology (Power Scribe) is used for the dictation of this note and sound-alike words might be erroneously placed despite reviewing this note for accuracy. Errors in dictation may reflect use of voice recognition software and not all errors in foxing cutting machine operator may have been detected prior to signing. Assessment & Plan Trochanteric bursitis, left hip -to OR for scheduled procedure CON, CPAP HTN GERD DM II Obesity Migraines RLS Anxiety PONV documented in this encounter OR Notes * Op Note - Vaibhav Chester MD - 06/12/2025 9:43 AM EDT Date: 06/12/2025 Surgeon: Conor Chester M.D. Assistants: Inderjit Nolan C.S.A. The car rental sales assistant was necessary for positioning, draping, retraction, drilling while I held the guide, and wound closure. The assistant professor in family studies allowed the procedure be completed in a [...] - 110 mg/dL 06/12/2025 11:00 AM EDT [facility] Comment: In the event of poor peripheral blood flow, venous or arterial blood should be used due to the potential of erroneous results. Protocols Followed Cork Sorter [id number] 06/12/2025 11:00 AM EDT [facility] Blood WHOLE BLOOD / Unknown 06/12/2025 10:58 AM EDT 06/12/2025 11:00 AM EDT Narrative [facility] - 06/12/2025 11:00 AM EDT Cork Sorter ID is - [id number] us Vaibhav Chester MD POINT OF CARE TEST ORDERAB LES Final Result [facility] [address] [phone] * (ABNORMAL) Glucose, Nova Meter (06/12/2025 9:49 AM EDT) POC-GLUCOSE 140(H) 70 - 110 mg/dL 06/12/2025 9:50 AM EDT [facility] Comment: In the event of poor peripheral blood flow, venous or arterial blood should be used due to the potential of erroneous results. Notified Nurse RBV Cork Sorter [id number] 06/12/2025 9:50 AM EDT [facility] Blood WHOLE BLOOD / Unknown 06/12/2025 9:49 AM EDT 06/12/2025 9:50 AM EDT Narrative [facility] - 06/12/2025 9:50 AM EDT Cork Sorter ID is - [id number] Vaibhav Chester MD POINT OF CARE TEST ORDERAB LES Final Result Performing Organization Address [facility] de Phone Number [facility] [address] [place] [address] * (ABNORMAL) Glucose, Nova Meter (06/12/2025 7:21 AM EDT) POC-GLUCOSE 127(H) 70 - 110 mg/dL 06/12/2025 7:23 AM EDT [facility] Comment: In the event of poor peripheral blood flow, venous or arterial blood should be used due to the potential of erroneous results. Notified Nurse RBV Cork Sorter [id number] 06/12/2025 7:23 AM EDT [facility] Blood WHOLE BLOOD / Unknown 06/12/2025 7:21 AM EDT 06/12/2025 7:23 AM EDT Narrative [facility] - 06/12/2025 7:23 AM EDT Cork Sorter ID is - [id number] us Vaibhav Chester MD POINT OF CARE TEST ORDERAB LES Final Result Performing Organization Address [facility] Co de Phone Number [facility] [address] [phone] * POCT , urine (06/12/2025 7:07 AM [...] Pre-op documented in this encounter Care Teams Lamination Technician Relationship Specialty Start Date End Date Tyrell Magana MD [address] [place] [address] PCP - General Family Medicine 11/15/23 documented as of this encounter
--- OUTSIDE RECORDS SUMMARY | 2025-06-26 12:44 | XMS_ITS | Encounter Summary ---
Author Organization [facility] Address [address] [place] [address] Care Team Providers Care Certified Ophthalmic Technologist Name Role Phone Dustin Gomez MD Primary Care Provider Unavailabl e Doctor, No Primary Care Provider Unavailabl e Reason for Visit * Reason Onset Date Comments Medications Refill 03/23/2011 Encounter Details Date Type Department Care Team (Late st Contact Info) Description 03/23/2011 Refill [facility] [address] [place] [address] Dustin Gomez MD 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 [...] on filedocumented in this encounter Care Teams Certified Ophthalmic Technologist Relationship Specialty Start Date End Date Dustin Gomez MD PCP - General 08/02/08 02/11/14 , [place] PCP - General Family Medicine 02/12/14 12/30/17 documented as of this encounter
--- OUTSIDE RECORDS SUMMARY | 2025-06-26 12:44 | XMS_ITS | Encounter Summary ---
Author Organization [facility] Address [address] [place] [address] Care Team Providers Care Farm Management Adviser Name Role Phone Tyrell Magana MD Primary Care Provider +1- [phone] Encounter Details Date Type Department Care Team (Late st Contact Info) Description 06/06/2025 Patient rounding ([facility] [facility] [address] [place] [address] Coreen Devi, HARNESS INSTALLER [address] [place], [place] [id number] 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 Tobacco Use Types Packs/Day Years [...] PM EDT documented as of this encounter Progress Notes * Avani Nguyen RegSched Rep - 06/06/2025 12:02 PM EDT ..My name is Betina Carreno and I am the Tv Production Assistant for [facility]. I would like to thank you for being a loyal patient. If you do not mind I would like to ask you a few questions about your recent visit with us. Please feel free to reply if you wish to provide us with feedback on your first visit with our practice. First, could you tell me what went well with your recent visit? Secondly, we are always looking for ways to make our patients' experiences even better. Do you haveany recommendations on ways we may improve? Finally, overall were you satisfied with your first visit to us as a [facility]? In the next few days, you will be receiving a Patient Experience Survey. Thank you for taking the time to answer a few questions today. I hope you have a good day. documented in this encounter Plan of Treatment Upcoming Encounters Date Type Department Care Team (Late st Contact Info) Description 06/05/2026 10:30 AM EDT Office Visit [facility] [address] [place] [address] Coreen Devi, HARNESS INSTALLER [address] [place] [address] documented as of this encounter Visit Diagnoses Not on filedocumented in this encounter Care Teams Farm Management Adviser Relationship Specialty Start Date End Date Tyrell Magana MD [address] [place] [address] PCP - General Family Medicine 06/03/23 documented as of this encounter
--- OUTSIDE RECORDS SUMMARY | 2025-06-26 12:44 | XMS_ITS | Encounter Summary ---
Author Organization [facility] Address [address] [place] [address] Care Team Providers Care Hand Laminator Name Role Phone Dustin Gomez MD Primary Care Provider Unavailabl e Doctor, No Primary Care Provider Unavailabl e Encounter Details Date Type Department Care Team (Latest Contact Info) Description 04/09/2010 Transcribe Orders [facility] [address] [place] [address] Dustin Gomez MD Hypopotassemia (Primary [...] POTASSIUM 3.4(L) 3.6 - 5.0 MMOL/L [facility] 04/09/2010 8:10 AM EDT 04/09/2010 11:51 AM EDT us Dsutin Gomez MD CHEMISTRY ORDERABLES Final Resul t [facility] [address] [facility] [place] [address] documented in this encounter Visit Diagnoses Diagnosis Hypopotassemia- Primary documented in this encounter Care Teams Hand Laminator Relationship Specialty Start Date End Date Dustin Gomez MD PCP - General 08/02/08 02/11/14 Vicki Villavicencio [place] PCP - General Family Medicine 02/12/14 12/30/17 documented as of this encounter
--- OUTSIDE RECORDS SUMMARY | 2025-06-26 12:44 | XMS_ITS | Encounter Summary ---
Author Organization [employer] ([place], [place], [place], [place]) Address [address] [place] [address] Care Team Providers Care Junior Estimator Name Role Phone Tyrell Magana MD Primary Care Provider +1- [phone] Encounter Details Date Type Department Care Team [...] Date Surinder rded Speak language other than Ivorian at home Not on file 12/16/2023 Want [...] filedocumented in this encounter Care Teams Junior Estimator Relationship Specialty Start Date End Date Tyrell Magana MD [address] [place] [address] [place] [address] PCP - General Family Medicine 11/15/23 documented as of this encounter
--- OUTSIDE RECORDS SUMMARY | 2025-06-26 12:44 | XMS_ITS | Referral Summary ---
Author Organization [employer] ([place], [place], [place], [place]) Address [address] [place] [address] Care Team Providers Care Pocket Closer Name Role Phone Tyrell Magana MD Primary Care Provider [phone]- [phone] Encounters Date Type Department Care Team Description 06/12/2025 Travel 06/12/2025 9:32 AM EDT - 06/12/2025 11:19 AM EDT Surgery [facility] Operating [facility] [address] [place] [address] Vaibhav Chester MD (LEFT HIP ARTHROSCOPIC BURSECTOMY, POSSIBLE ABDUCTOR REPAIR) 06/12/2025 8:21 AM EDT Anesthesia Event [facility] [address] [place] [address] Valeri Phillips MD Simpson, Kristen, [place] 06/12/2025 6:34 AM EDT - 06/12/2025 11:27 AM EDT Hospital Encounter [facility] [address] [place] [address] Vaibhav Chester MD Hip abductor tendinitis, left (Primary Dx) Discharge Disposition: Home or Self Care 05/06/2025 Travel 05/06/2025 12:00 PM EDT - 05/06/2025 1:52 PM EDT Surgery [facility] Surgery Department [address] [place] [address] Justice Miller MD Diagnostic LAPAROSCOPY, ENDOMETRIAL ABLATION 05/06/2025 12:59 PM EDT Anesthesia Event [facility] Surgery Department [address] [place] [address] Chery Gill CRNA Booker, Philip Craig, MD 05/06/2025 9:19 AM EDT - 05/06/2025 3:19 PM EDT Hospital Encounter [facility] Surgery Department [address] [place] [address] Justice Miller MD Excessive or frequent menstruation; Encounter for gynecological examination with abnormal finding; Excessive, frequent and irregular menstruation; Secondary dysmenorrhea Discharge Disposition: Home or Self Care 04/30/2025 3:54 PM EDT - 04/30/2025 11:59 PM EDT Hospital Encounter [facility] Diagnostic Imaging [address] [place] [address] Justice Miller MD Discharge Disposition: Home or Self Care 04/30/2025 Travel 04/30/2025 2:38 PM EDT - 04/30/2025 3:53 PM EDT Hospital Encounter [facility] Preadmission Testing [address] [facility] [address] [place] [address] Justice Miller MD Pre-op testing (Primary Dx); [...] (RobinuL) 1 mg tablet 10/29/20 23 Active meloxicam (MOBIC) 7.5 MG tablet TAKE 1 TABLET BY MOUTH EVERY DAY FOR ARTHRITIS 10/29/20 Active metFORMIN (GLUCOPHAGE) 500 MG tablet Active multivit with calcium,iron,min (MULTIVITAMIN-CALC IUM AND IRON ORAL) 10/29/20 Active pantoprazole (PROTONIX) 40 MG tablet Take 1 tablet (40 mg total) by mouth daily. Active potassium citrate (Urocit-K 15) 15 mEq TbER 10/29/20 Active propranoloL (Inderal LA) 60 MG 24 hr capsule 03/24/20 Active zafirlukast (Accolate) 20 MG tablet 10/29/20 Active DULoxetine (CYMBALTA) 30 MG capsule Take 1 capsule (30 mg total) by mouth daily. Active fluticasone propionate (FLONASE) 50 mcg/actuation nasal spray Administer 1 spray into each nostril daily. Active Missing or Non-Formulary Medication PROBIOTIC. Active cholecalciferol (VITAMIN D3) 125 mcg (5,000 unit) tablet Take 1 tablet (5,000 Units total) by mouth daily. Active cetirizine (ZyrTEC) 10 MG tablet Take 1 tablet (10 mg total) by mouth daily. Active lisinopriL (ZESTRIL) 40 MG tablet Take 1 tablet (40 mg total) by mouth daily. Active pregabalin (LYRICA) 75 MG capsule Take 1 capsule (75 mg total) by mouth 3 (three) times daily. Active rOPINIRole (REQUIP) 1 MG tablet Take 1 tablet (1 mg total) by mouth daily. Active aspirin 81 MG EC tablet Take 1 tablet (81 mg total) by mouth daily for 14 days. 14 tablet 06/12/20 025 Active levocetirizine (Xyzal) 5 MG tablet 10/29/20 025 Discontinu ed(Stop Taking at Discharge) lisinopriL (PRINIVIL,ZESTRIL) 10 MG tablet Take 1 tablet (10 mg total) by mouth 3 (three) times daily. 10/29/20 025 Discontinu ed(Stop Taking at Discharge) norethindrone-ethi nyl estradiol-iron (June FE .,) 1.5 mg-30 mcg (21)/75 mg (7) per tablet 10/29/20 025 Discontinu ed(Stop Taking at Discharge) rOPINIRole (REQUIP) 0.25 MG tabletIndications: restless leg syndrome Take 4 tablets (1 mg total) by mouth daily. 10/29/20 025 Discontinu ed(Stop Taking at Discharge) hydroCHLOROthiazid e (MICROZIDE) 12.5 mg capsule Take 1 capsule (12.5 mg total) by mouth daily. Discontinu ed(Stop Taking at Discharge) oxyCODONE (ROXICODONE) 5 MG immediate release tablet Take 1 tablet (5 mg total) by mouth every 6 (six) hours as needed for pain for up to 10 days Look-alike/S ound-alike medication. Max Daily Amount: 20 mg 20 tablet 06/12/20 025 ondansetron (ZOFRAN-ODT) 4 MG disintegrating tablet Take 1 tablet (4 mg total) by mouth every 4 (four) hours as needed for nausea or vomiting for up to 7 days. 20 tablet 06/12/20 025 Active Problems Problem Noted Date Diagnosed Date Diabetes mellitus, type 2 05/06/2025 Migraines 04/30/2025 RLS (restless legs syndrome) 04/30/2025 Morbid obesity 11/17/2023 HTN (hypertension) CON (obstructive sleep apnea) GERD (gastroesophageal reflux disease) PONV (postoperative nausea and vomiting) DDD (degenerative disc disease) 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 Tobacco Use Types Packs/Day [...] Date Surinder rded Speak language other than Guyanese at home Not on file 12/16/2023 Want [...] Mass Index 43.81 06/12/2025 6:00 AM EDT Plan of Treatment Not on file Medical Devices Implanted Type Area Sewer Repairer Device Identifier Shelf Expiration Date Model / Serial / Lot Warwick Knotilus 2.3mm [id number] - [id number] Implanted:Qty: 2 on 06/12/2025 by Vaibhav Chester MD at [facility] IMPLANTS Left: Hip TUNG:TUNG ENDOSCOPY 12/28/2029 [id number] / / [id number] Warwick Peek Knotless Sp 4.75mm [id number] - [id number] Implanted:Qty: 1 on 06/12/2025 by Vaibhav Chester MD at [facility] IMPLANTS Left: Hip TUNG:TUNG ENDOSCOPY 02/01/2027 [id number] / / [id number] Procedures Procedure Name Priority Date/Time Associated Diagnosis Comments NOVA GLUCOSE POC Routine 06/12/2025 10:58 AM EDT NOVA GLUCOSE POC Routine 06/12/2025 9:49 AM EDT ANESTHESIA INTUBATION Routine 06/12/2025 8:33 AM EDT IN EXCISION TROCHANTERIC BURSA/CALCIFICATION 06/12/2025 8:21 AM EDT Trochanteric bursitis, left hip Case Notes IN 0630, 1h (R), ARTHREX, REGULAR OR TABLE NOVA GLUCOSE POC Routine 06/12/2025 7:21 AM EDT FS_MODEL_IP POCT , URINE Routine 06/12/2025 7:07 AM EDT NOVA GLUCOSE POC Routine 05/06/2025 2:12 PM EDT TISSUE EXAM ([place] AR) AP Routine 05/06/2025 1 :43 PM EDT Excessive or frequent menstruation Encounter for gynecological examination with abnormal finding Excessive, frequent and irregular menstruation Secondary dysmenorrhea ANESTHESIA INTUBATION Routine 05/06/2025 1:06 PM EDT IN HYSTEROSCOPY ENDOMETRIAL ABLATION 05/06/2025 12:58 PM EDT Excessive or frequent menstruation Encounter for gynecological examination with abnormal finding Excessive, frequent and irregular menstruation Secondary dysmenorrhea Case Notes This case needs to be Robotic per TEJAS Love IN LAPS ABD PRTM&OMENTUM DX W/WO SPEC BR/WA [...] testing from Last 3 Months Results * (ABNORMAL) Glucose, Nova Meter (06/12/2025 10:58 AM EDT) Only the most recent of4 resultswithin the time period is included. POC-GLUCOSE 144(H) 70 - 110 mg/dL 06/12/2025 11:00 AM EDT [facility] Comment: In the event of poor peripheral blood flow, venous or arterial blood should be used due to the potential of erroneous results. Protocols Followed Inspector Outside Steam Distribution [id number] 06/12/2025 11:00 AM EDT [facility] Blood WHOLE BLOOD / Unknown 06/12/2025 10:58 AM EDT 06/12/2025 11:00 AM EDT Narrative [facility] - 06/12/2025 11:00 AM EDT Inspector Outside [employer] ID is - [id number] us Vaibhav Chester MD POINT OF CARE TEST ORDERAB LES Final Result [facility] [address] [place] [address] * AN SINGLE LUMEN INTUBATION (06/12/2025 8:33 [...] Bilateral BS and chest rise, ETCO2 confirmed Valeri Phillips MD ANESTHESIA ORDERABLES Brigida l Result * POCT , urine (06/12/2025 7:07 AM EDT) Pathologist [facility] POC, URINE HCG Negative Negative INTERNAL QC (VALID/INVALID) Valid Kit Lot Number [id number] Expiration Date 12-06-26 06/12/2025 7:07 AM EDT Valeri Phillips MD FS_MODEL_IP_POINT OF CARE TEST ENTER/EDIT ORDERABLES Final Result * Tissue Exam (05/06/2025 1:43 PM EDT) [facility] AP RESULT See Note: [facility] Comment: [facility] [address] [place] [address] or [phone] Heath Pruett M.D., Pipe Cutter PATIENT NAME LABORATORY NO. 170CELINE JEFFERS. [id number] AGE SEX SSN CLIENT REF # [facility] 39 1985 F [id number] [address] REQUESTING Gustavo ATTENDING [place] [address] JUSTICE MILLER DATE COLLECTED DATE RECEIVED DATE [...] rendered by Ailyn Siddiqui M.D., [employer], [facility], [address] [place] [address]. GROSS DESCRIPTION: Labeled endometrial curettings consists of multiple pieces of rocha-brown soft tissue measuring 3.0 x 2.5 x 0.6 cm in aggregate. Specimens are filtered and submitted entirely in 3 blocks. BKO REVIEWED, DIAGNOSED AND ELECTRONICALLY SIGNED BY: Ailyn Siddiqui M.D., Sandrine.Larry. CPT CODES: 69205 Tissue SPECIMEN FROM ENDOMETRIUM OBTAINED BY CURETTAGE / Unknown 05/06/2025 1:43 PM EDT Justice Miller MD PATHOLOGY/CYTOLOGY ORDERABLES Final Result [facility] [address] [place] [address] * AN SINGLE LUMEN INTUBATION (05/06/2025 1:06 [...] 1 Number of other approaches attempted: 0 [facility] ANESTHESIA ORDERABLES Final Result * EKG-SCANNED (05/06/2025) Narrative 05/06/2025 Ordered by an unspecified provider. Default Scanning Provider SCAN ORDERS Final Result * X-ray chest PA and lateral (04/30/2025 4:00 PM EDT) Anatomical Region Laterality Modality Chest X-Ray 04/30/2025 5:32 PM EDT Impressions 04/30/2025 5:34 PM EDT Unremarkable two-view chest. Images reviewed, interpreted, dictated and electronically signed by Nithin Matamoros MD Voice gin inspector technology (Tern) is used for the dictation of this note and sound-alike words might be erroneously placed despite reviewing this note for accuracy. Errors in dictation may reflect use of voice recognition software and not all errors in gin inspector may have been detected prior to [...] electronically signed by Nithin Matamoros MD Voice gin inspector technology (Tern) is used for the dictation of this note and sound-alike words might be erroneously placed despite reviewing this note for accuracy. Errors in dictation may reflect use of voice recognition software and not all errors in gin inspector may have been detected prior to signing. us Justice Miller MD IMG DIAGNOSTIC IMAGING ORDERA BLES Final Result * Screen, urine (04/30/2025 3:08 PM EDT) Preg Test, Ur Negative Negative, Inconclusive 04/30/2025 3:26 PM EDT [facility] Urine 04/30/2025 3:08 PM EDT 04/30/2025 3:08 PM EDT us Justice Miller MD URINE ORDERABLES Final Result Performing Organization Address City/State/RUST Co de Phone Number [facility] [address] [phone] * CBC with automated diff (04/30/2025 3:07 PM EDT) WBC 9.2 3.9 - 10.0 K/ L 04/30/2025 3:22 PM EDT [facility] RBC 4.59 3.93 - 5.22 M/ L 04/30/2025 3:22 PM EDT [facility] Hemoglobin 13.7 11.2 - 15.7 GM/DL 04/30/2025 3:22 PM EDT [facility] Hematocrit 41.8 34.1 - 44.9 % 04/30/2025 3:22 PM EDT [facility] MCV 91 79 - 95 fL 04/30/2025 3:22 PM EDT [facility] MCH 29.8 25.6 - 32.2 pg 04/30/2025 3:22 PM EDT [facility] MCHC 32.8 32.2 - 36.5 GM/DL 04/30/2025 3:22 PM EDT [facility] RDW 14.3 11.6 - 14.4 % 04/30/2025 3:22 PM EDT [facility] Platelets 345 163 - 369 K/CU MM 04/30/2025 3:22 PM EDT [facility] MPV 9.4 9.4 - 12.4 fL 04/30/2025 3:22 PM EDT [facility] % Neutros 52 34 - 71 % 04/30/2025 3:22 PM EDT [facility] % Lymphs 37 19 - 53 % 04/30/2025 3:22 PM EDT [facility] % Monos 8 4 - 13 % 04/30/2025 3:22 PM EDT [facility] % Eos 2 1 - 7 % 04/30/2025 3:22 PM EDT [facility] % Baso 0 0 - 1 % 04/30/2025 3:22 PM EDT [facility] # Neutros 4.80 1.56 - 6.13 K/ L 04/30/2025 3:22 PM EDT [facility] # Lymphs 3.39 1.18 - 3.74 K/ L 04/30/2025 3:22 PM EDT [facility] # Monos 0.71 0.24 - 0.82 K/ L 04/30/2025 3:22 PM EDT [facility] # Eos 0.20 0.04 - 0.54 K/ L 04/30/2025 3:22 PM EDT [facility] # Baso 0.04 0.01 - 0.08 K/ L 04/30/2025 3:22 PM EDT [facility] Immature Granulocytes-Re lative 0.40 0.00 - 0.60 % 04/30/2025 3:22 PM EDT [facility] # IG 0.04 0.00 - 0.05 K/uL 04/30/2025 3:22 PM EDT [facility] Blood Venipuncture / Unknown 04/30/2025 [...] MD LAB BLOOD ORDERABLES Final Re sult [facility] [address] [facility] [place] [address], [facility] [phone] * (ABNORMAL) Comprehensive metabolic panel (04/30/2025 3:07 PM EDT) Sodium 138 136 - 146 meq/L 04/30/2025 3:32 PM EDT [facility] Potassium 3.9 3.5 - 5.1 meq/L 04/30/2025 3:32 PM EDT [facility] Chloride 102 102 - 112 meq/L 04/30/2025 3:32 PM EDT [facility] CO2 28 21 - 32 meq/L 04/30/2025 3:32 PM EDT [facility] Calcium 9.6 8.5 - 10.1 mg/dL 04/30/2025 3:32 PM EDT [facility] Glucose 105 74 - 106 mg/dL 04/30/2025 3:32 PM EDT [facility] BUN 11 7 - 22 mg/dL 04/30/2025 3:32 PM EDT [facility] Creatinine 0.85 0.55 - 1.02 mg/dL 04/30/2025 3:32 PM EDT [facility] BUN/Creatinine 13 8 - 20 04/30/2025 3:32 PM EDT [facility] Albumin 3.5 3.4 - 5.0 g/dL 04/30/2025 3:32 PM EDT [facility] Alkaline Phosphatase 50 27 - 136 U/L 04/30/2025 3:32 PM EDT [facility] ALT 54 12 - 78 U/L 04/30/2025 3:32 PM EDT [facility] AST 46(H) 5 - 37 U/L 04/30/2025 3:32 PM EDT [facility] Total Bilirubin 0.2 0.2 - 1.3 mg/dL 04/30/2025 3:32 PM EDT [facility] Protein, Total 7.0 6.4 - 8.2 gm/dL 04/30/2025 3:32 PM EDT [facility] Anion Gap 12 9 - 20 04/30/2025 3:32 PM EDT [facility] A/G Ratio 1.0(L) 1.1 - 2.5 04/30/2025 3:32 PM EDT [facility] Globulin 3.5 1.5 - 4.5 g/dL 04/30/2025 3:32 PM EDT [facility] Osmolality Calc 275.4 mOsm/kg 3:32 PM EDT [facility] eGFR (mL/min/1.73m2) >60 >=60 mL/min/1.7 3m2 04/30/2025 3:32 PM EDT [facility] Comment:ESTIMATED GFR IS NOT ACCURATE CREATININE CLEARANCE IN PREDICTING GLOMERULAR FILTRATION RATE. ESTIMATED GFR IS NOT APPLICABLE FOR DIALYSIS PATIENTS. Blood Venipuncture / Unknown 04/30/2025 3:07 PM EDT 04/30/2025 3:07 PM EDT Justice Miller MD LAB BLOOD ORDERABLES Final Re sult [facility] [address] [place] [address] * ECG 12 lead (04/30/2025 1:59 PM EDT) VENTRICULAR RATE EKG/MIN 82 BPM GE MUSE ATRIAL RATE (MCT) 82 BPM GE MUSE IN Interval 170 ms GE MUSE QRS-INTERVAL (MSEC) 92 ms GE MUSE QT Interval 354 ms GE MUSE QTC Interval 413 ms GE MUSE P [place] 55 degrees GE MUSE R AXIS (MCT) 69 degrees GE MUSE T Wave [place] 65 degrees GE MUSE [place] Diagnosis Normal sinus rhythm Normal ECG Confirmed by Gustavo FITZGERALD SUZANNE ([id number]) on 04/30/2025 4:57:51 PM GE MUSE 04/30/2025 1:59 PM EDT 04/30/2025 4:57 PM EDT us Justice Miller MD ECG ORDERABLES Final Result [facility]AHRA GOODEN from Last 3 Months Insurance BLUE CROSS/BLUE SHIELD Advance Directives For more information, please contact: [phone] * Full Code (Latest Code Status on File) Date Activated Date Inactivated Comments 06/12/2025 6:02 AM 06/12/2025 12:28 PM * Full Code Date Activated Date Inactivated Comments 11/17/2023 11:34 AM 11/17/2023 6:14 PM Care Teams Pocket Closer Relationship Specialty Start Date End Date Tyrell Magana MD [address] [place] [address] PCP - General Family Medicine 11/15/23
--- OUTSIDE RECORDS SUMMARY | 2025-06-26 12:44 | XMS_ITS | Encounter Summary ---
Author Organization [facility] Address [address] [place] [address] Care Team Providers Care Supervisor Quilting Name Role Phone Tyrell Magana MD Primary Care Provider +1- [phone] Encounter Details Date Type Department Care Team (Latest Contact Info) Description 06/06/2025 Travel 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 Tobacco Use Types Packs/Day [...] PM EDT documented as of this encounter Plan of Treatment Upcoming Encounters Date Type Department Care Team (Late st Contact Info) Description 06/05/2026 10:30 AM EDT Office Visit [facility] [address] [place] [address] SeCoreen whitten, GEOTHERMAL OPERATIONS ENGINEER [address] [place] [address] [place] [address] documented as of this encounter Visit Diagnoses Not on filedocumented in this encounter Care Teams Supervisor Quilting Relationship Specialty Start Date End Date Tyrell Magana MD [address] [place] [address] PCP - General Family Medicine 06/03/23 documented as of this encounter
--- OUTSIDE RECORDS SUMMARY | 2025-06-26 12:44 | XMS_ITS | Clinical Summary ---
Author Organization [facility] Address [address] [place] [address] Care Team Providers Care Event Marketing Specialist Name Role Phone Unavailable Primary Care Provider [...] to complete this topic [place] [address] BLUE [facility]
--- OUTSIDE RECORDS SUMMARY | 2025-06-26 12:44 | XMS_ITS | Encounter Summary ---
Author Organization [facility] Address [address] [place] [address] Care Team Providers Care Registration Representative Name Role Phone Dustin Gomez MD Primary Care Provider Unavailabl e Doctor, Vicki Primary Care Provider Unavailabl e Reason for Visit * Reason Onset Date Comments Referral Status 04/16/2010 Encounter Details Date Type Department Care Team (Late st Contact Info) Description 04/16/2010 Telephone [facility] [address] [place] [address] Jesus Osborne APRN Referral Status [...] on filedocumented in this encounter Care Teams Registration Representative Relationship Specialty Start Date End Date Dustin Gomez MD PCP - General 08/02/08 02/11/14 , ELOISA Vides PCP - General Family Medicine 02/12/14 12/30/17 documented as of this encounter
--- OUTSIDE RECORDS SUMMARY | 2025-06-26 12:45 | XMS_ITS | Clinical Summary ---
Author Organization [facility] Address [address] [place] [address] Care Team Providers Care Business Analytics Specialist Name Role Phone Oriana Murcia Primary [...] Not on file Insurance ANTHEM Care Teams Business Analytics Specialist Relationship Specialty Start Date End Date Oriana Murcia PA [address] [place] [address] PCP - General 04/10/21
--- OUTSIDE RECORDS SUMMARY | 2025-06-26 12:45 | XMS_ITS | Encounter Summary ---
Author Organization [employer] ([place], [place], [place], [place]) Address [address] [place] [address] Care Team Providers Care Washing Machine Repairer Name Role Phone Tyrell Magana MD Primary Care Provider +1- [phone] Encounter Details Date Type Department Care Team [...] Date Surinder rded Speak language other than Bruneian at home Not on file 12/16/2023 Want [...] on filedocumented in this encounter Care Teams Washing Machine Repairer Relationship Specialty Start Date End Date Tyrell Magana MD [address] [place] [address] PCP - General Family Medicine 11/15/23 documented as of this encounter
--- OUTSIDE RECORDS SUMMARY | 2025-06-26 12:45 | XMS_ITS | Encounter Summary ---
Author Organization [facility] Address [address] [place] [address] Care Team Providers Care Auto Body Repairer Name Role Phone Dustin Gomez MD Primary Care Provider Unavailabl e Doctor, Vicki Primary Care Provider Unavailabl e Encounter Details Date Type Department Care Team (Late st Contact Info) Description 07/04/2009 Abstract Initial Department [address] [facility] [place] [address] [place], [place] 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 Tobacco Use Types Packs/Day [...] on filedocumented in this encounter Care Teams Auto Body Repairer Relationship Specialty Start Date End Date Dustin Gomez MD PCP - General 08/02/08 02/11/14 Doctor, ELOISA Vides PCP - General Family Medicine 02/12/14 12/30/17 documented as of this encounter
--- OUTSIDE RECORDS SUMMARY | 2025-06-26 12:46 | XMS_ITS | Encounter Summary ---
Author Organization [employer] ([place], [place], [place], [place]) Address [address] [place] [address] Care Team Providers Care Senior Gis Analyst Name Role Phone Tyrell Magana MD Primary Care Provider +1- [phone] Encounter Details Date Type Department Care Team (Late st Contact Info) Description 05/14/2021 Transcribed Document [facility] Family Medicine [place] [address] ProviderBen MD [address] [place] [address] 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 Tobacco Use Types [...] Source : Measured Height Entry Format : Freeborn Height, Feet : 0 ft(Converted to: 0 cm, 0 Inch) Height, Inches : 66 Inch(Converted to: 5 ft 6 Inch, 167.64 cm) Clinical Height : 167.64 cm Weight Source : Standing scale Weight Entry Format : Freeborn Clinical Dosing Weight : 104.32 kg Weight, Pounds : 229 lb Weight, Ounces : 8 oz Body Surface Area (BSA) : 2.12 m2 Body Mass Index : 37.1 kg/m2 (HI) [place] Body Weight : 59 kg Chastity Erazo, Nurse Paste Up Artist Apprentice - 05/15/2021 7:15 EDT Health Histories Smoking Status : Never (less than 100 in lifetime; none in last 30 days) Smokeless Tobacco Status : Never Implant/Device Type, Foil Cutter and Model : bladder sling Caesar Patten [...] Caesar Patten Rn - 05/14/2021 17:20 EDT [place] Suicide Severity Rating Scale (C-SSRS) CSSRS Past [...] 05/14/2021 17:20 EDT General Info Support Person/Patient Solar Lab Technician : Yes Support Person/Pt Rep Name : Jason Dc - Support Person/Pt Rep Contact Information : [phone] Want Family/Rep/Phys Notified of Admit : No Emergency Contact #1 : ` Emergency Contact #1 Phone Number : ` Emergency Contact #1 Relationship : ` Emergency Contact #2 : ` Emergency Contact #2 Phone Number : ` Emergency Contact #2 Relationship : ` Information Obtained From : Patient Primary Language : Bahraini Preferred Communication Mode : Verbal Communication Barrier : None Unified Communications Engineer Needed : No Caesar Patten Rn - [...] Level Score : 4 Chastity Erazo, Nurse Paste Up Artist Apprentice - 05/15/2021 7:15 EDT Hx of Obstructive Sleep Apnea Diagnosis : No Snore Loudly : Yes Tired, Fatigued, or Sleepy During Day : Yes Observed Stopping Breathing During Sleep : No Have/Are Being Treated for Hypertension : Yes Age over 50 Years Old : No Gender Male : No Caesar Patten Rn - 05/14/2021 17:20 EDT Electronically signed by Cesar Raymond Conversion Associate Of Science In Nursing Cerner at 03/13/2023 7:08 PM CDT documented in this encounter Plan of Treatment Not on file documented as of this encounter Visit Diagnoses Not on filedocumented in this encounter Care Teams Senior Gis Analyst Relationship Specialty Start Date End Date Tyrell Magana MD [address] [place] [address] PCP - General Family Medicine 11/15/23 documented as of this encounter
--- OUTSIDE RECORDS SUMMARY | 2025-06-26 12:46 | XMS_ITS | Encounter Summary ---
Author Organization [employer] ([place] Address [address] [place] [address] Care Team Providers Care Farrowing Worker Name Role Phone Tyrell Magana MD Primary Care Provider +1- [phone] Encounter Details Date Type Department Care Team (Late st Contact Info) Description 05/15/2021 Transcribed Document [facility] [place] Family Medicine [facility] [place] [address] ProviderBen MD [address] [place] [address] 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 Tobacco Use Types Packs/Day [...] with instructions for outpatient followup with [facility]. /[id number] Lincoln Dey MD JPatriciaJ/AQ / JDJ / MODL /[id number] documented in this encounter Plan of Treatment Not on file documented as of this encounter Visit Diagnoses Not on filedocumented in this encounter Care Teams Farrowing Worker Relationship Specialty Start Date End Date Tyrell Magana MD [address] [place] [address] PCP - General Family Medicine 11/15/23 documented as of this encounter
--- OUTSIDE RECORDS SUMMARY | 2025-06-26 12:46 | XMS_ITS | Clinical Summary ---
Author Organization [facility] Address [address] [place] [address] Care Team Providers Care Airplane Pilot Supervisor Name Role Phone Tyrell Magana MD Primary Care Provider +1- [phone] Allergies Active Allergy Reactions Criticality Noted Date Comments Cephalexin Other (See Comments) High 04/10/2017 Loss of consciousness Penicillins Anaphylaxis High 04/10/2017 Medications lisinopril (PRINIVIL,ZEST RIL) 10 MG tablet Take 1 tablet by mouth Daily. Active Multiple Vitamins-[place] als (MULTIVITAMIN WITH MINERALS) tablet Take 1 tablet by mouth. Active glycopyrrolate (ROBINUL) 1 MG tablet Take 3 tablets by mouth See Admin Instructions. take 2 tablets by mouth in the morning and 1 in the evening 1 9 Active zafirlukast (ACCOLATE) 20 MG tablet Take 1 tablet by mouth 2 (Two) Times a Day. 1 9 Active metFORMIN ER (GLUCOPHAGE-XR ) 500 MG 24 hr tablet TAKE 2 TABLETS BY MOUTH EVERY DAY WITH EVENING MEAL 0 9 Active fluticasone (FLONASE) 50 MCG/ACT nasal spray fluticasone propionate 50 mcg/actuation nasal spray,suspensio n Fithian 1 spray every day by intranasal route. Active pantoprazole (PROTONIX) 40 MG EC tablet Take 1 tablet by mouth Daily. Active famotidine (PEPCID) 40 MG tablet Take 1 tablet by mouth Daily. Active meloxicam (MOBIC) 7.5 MG tablet TAKE 1 TABLET BY MOUTH EVERY DAY FOR ARTHRITIS Active busPIRone (BUSPAR) 7.5 MG tablet TAKE 1 TABLET BY MOUTH TWICE A DAY FOR ANXIETY Active DULoxetine (CYMBALTA) 20 MG capsule Take 1 capsule by mouth Every 12 (Twelve) Hours. 4 Active rOPINIRole (REQUIP) 0.25 MG tablet Take 1 tablet by mouth Every Night. 4 Active Potassium Citrate ER 15 MEQ (1620 MG) tablet controlled-rel ease Take 1 tablet by mouth Every 12 (Twelve) Hours. 4 Active pregabalin (LYRICA) 75 MG capsule Take 1 capsule by mouth every night at bedtime. Active vitamin d 125 MCG (5000 UT) capsule Take 1 capsule by mouth Daily. Active cetirizine (ZyrTEC Allergy) 10 MG tablet Take 1 tablet by mouth Daily. Active propranolol LA (INDERAL LA) 60 MG 24 hr capsule Take 1 capsule by mouth Daily. Active cyclobenzaprin e (FLEXERIL) 5 MG tablet Take 1 tablet by mouth 2 (Two) Times a Day. 025 Discontinu ed(Histori dru Med - Therapy completed) .04/26 1.5-30 MG-MCG tablet Take 1 tablet by mouth Daily. 3 025 Discontinu ed(Histori dru Med - Therapy completed) Active Problems Problem Noted Date Diagnosed Date CON (obstructive sleep apnea) 06/03/2023 Assessment & Plan (06/06/2025 11:11 AM EDT): Patient has a baseline AHI of 5. This is mild sleep apnea. Download shows good compliance and control with an AHI 1. Mask fit and airflow are comfortable. Patient denies any daytime sleepiness or fatigue. Patient is receiving benefit from PAP therapy. Plan to continue current treatment. Supply order sent to [facility] of patient choice. Follow-up in 1 year or sooner for any CON or PAP concerns. Assessment & Plan (06/08/2024 10:56 AM EDT): Patient has a baseline AHI of 5. This is mild sleep apnea. Download shows good compliance and control with an AHI 1. Mask fit and airflow are comfortable. Patient denies any daytime sleepiness or fatigue. Patient is receiving benefit from PAP therapy. Plan to continue current treatment. Supply order sent to [facility] of patient choice. Hypertension Assessment & Plan (06/08/2024 10:58 AM EDT): Patient's blood pressure in the office today 140/80. Patient states that her blood pressure medication is managed by her PCP. Patient instructed to follow-up with PCP for medication adjustment. Patient to continue current blood pressure medications along with CPAP therapy. Untreated sleep apnea may potentiate hypertension. Encounters Date Type Department Care Team Description 06/06/2025 10:30 AM EDT Office Visit [facility] [address] [place] [address] Coreen Devi, JUSTUS CON (obstructive sleep apnea) (Primary Dx) 06/06/2025 Patient rounding ([facility] [facility] [address] [place] [address] Coreen Devi APRN 06/06/2025 Travel from Last 3 Months Family History Relation Name Status Comments Brother 1 Alive Father Alive Mother Sister 2 Alive 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 Tobacco Use Types Packs/Day Years Used Date Smoking Tobacco: Never Passive Smoke Exposure: Never Smokeless Tobacco: Never Tobacco Cessation:Counseling Given: No Alcohol Use Standard Drinks/Week Comments Never 0 (1 standard drink = 0.6 oz pur e alcohol) Comments No Sex and Gender Information Value Date Recorded Sex Assigned at Female 06/02/2025 9:30 PM EDT Legal Sex Female 12:13 PM EDT Gender Identity Not on file Sexual Orientation Straight 06/02/2025 9: 30 PM EDT Last Filed Vital Signs Vital Sign Reading Time Taken Comments Blood Pressure 130/84 06/06/2025 10:46 AM EDT Pulse 89 06/06/2025 10:46 AM EDT Temperature 36.7 C (98 F) 04/30/2022 3:00 PM EDT Respiratory Rate 18 04/30/2022 2:45 PM EDT Oxygen Saturation 97% 06/06/2025 10:46 AM EDT Inhaled Oxygen Concentration - - Weight 122 kg (270 lb) 06/06/2025 10:46 AM EDT Height 167.6 cm (5' 6 ) 06/06/2025 10:46 AM EDT Body Mass Index 43.58 06/06/2025 10:46 AM EDT Plan of Treatment Upcoming Encounters Date Type Department Care Team (Late st Contact Info) Description 06/05/2026 10:30 AM EDT Office Visit [facility] [address] [place] [address] Coreen Devi APRN [address] [place] [address] Health Maintenance Due Date Last Done Comments Annual Gynecologic Pelvic an d Breast Exam 1985 DIABETIC EYE EXAM 1994 DIABETIC FOOT EXAM 1994 URINE MICROALBUMIN-CREATININ E RATIO (uACR) 1994 Hepatitis B (2 of 3 - 3-dose series) 04/13/1999 03/16/1999 Pneumococcal Vaccine 0-49 (1 of 2 - PCV) 2003 PAP SMEAR 2005 TDAP/TD VACCINES (2 - Tdap) 08/14/2008 08/14/1998 ANNUAL PHYSICAL 04/10/2017 HEMOGLOBIN A1C 04/10/2017 HEPATITIS C SCREENING 04/10/2017 MAMMOGRAM 2024 COVID-19 Vaccine (6 - 2023-2 5 season) 2024 05/01/2024, 06/22/2022, 10/20/2021, Additional history exists INFLUENZA VACCINE 08/28/2025 09/14/2024, , 09/16/2022, Additional history exists Procedures Procedure Name Priority Date/Time Associated Diagnosis Comments SCANNED - PULMONARY RESULTS 06/06/2025 from Last 3 Months Results * Pulmonary Results Scan (06/06/2025) us Coreen Devi APRN PFT ORDERABLES Final Result from Last 3 Months Insurance [employer] Care Teams Airplane Pilot Supervisor Relationship Specialty Start Date End Date Tyrell Magana MD [address] [facility] [address] [place] [address] PCP - General Family Medicine 06/03/23
--- OUTSIDE RECORDS SUMMARY | 2025-06-26 12:46 | XMS_ITS | Encounter Summary ---
Author Organization [facility] Address [address] [place] [address] Care Team Providers Care Bolt Labeler Name Role Phone Dustin Gomez MD Primary Care Provider Unavailabl e Doctor, Vicki Primary Care Provider Unavailabl e Encounter Details Date Type Department Care Team (Late st Contact Info) Description 08/14/2007 Historical Encounter Global Leann Bond MD [address] [facility] [address] [place] [address] 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 Tobacco Use Types Packs/Day Years [...] on filedocumented in this encounter Care Teams Bolt Labeler Relationship Specialty Start Date End Date Dustin Gomez MD PCP - General 08/02/08 02/11/14 Vicki Villavicencio [place] PCP - General Family Medicine 02/12/14 12/30/17 documented as of this encounter
--- OUTSIDE RECORDS SUMMARY | 2025-06-26 12:46 | XMS_ITS | Encounter Summary ---
Author Organization [employer] ([place], [place], [place], [place]) Address [address] [place] [address] Care Team Providers Care Register Clerk Name Role Phone Tyrell Magana MD Primary Care Provider +1- [phone] Encounter Details Date Type Department Care Team (Late st Contact Info) Description 10/10/2019 Transcribed Document [facility] [place] [address] [place] [address] ProviderBen MD [address] [place] [address] 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 Tobacco Use Types [...] - Ben ProviderMD - 10/10/2019 12:22 PM POURER OFF [facility] Main OR IntraOp Summary Primary Physician: JOMAR JENKINS MD Finalized Date/Time: 10/11/19 12:49:48 Pt. Name: CELINE MARKS /Sex: 1985 Female Med Rec #: [id number] Physician: JOMAR JENKINS MD Financial #: [id number] Pt. Type: O Room/Bed: /1 Admit/Disch: 10/10/19 09:16:00 - 10/10/19 15:22:00 Institution: [facility] IntraOp Case Attendance Entry 1 Entry 2 Entry 3 Case Attendee JOMAR JENKINS MD SHEWCRAFT, SUZANNE K, CHALKLEY, JUDSON E, DUMPER, CLAY MILLER -ANS Role Performed Surgeon/Proceduralist, CLAY MILLER/Nurse Insulation Manager Anesthesiologist First Time In 10/10/19 12:05:00 10/10/19 [...] Attendee REED MUNOZ, Chastity Villegas Madden, Jerrild Steamfitter Apprentice Role Performed Hyperbaric Nurse, Second Scrub, First Auto Air Conditioning Installer Time In 10/10/19 12:05:00 10/10/19 12:05:00 10/10/19 [...] Case Attendee Kiley Scott JAMIE MONK APRN, CLAY MILLER Role Performed Hyperbaric Nurse, First CLAY MILLER/Nurse Insulation Manager Time In 10/10/19 12:45:00 10/10/19 12:05:00 Time Out 10/10/19 13:35:00 10/10/19 12:33:00 Procedure Extracorporeal Ureteral Stent Insertion Shockwave Lithotripsy(Left) Other Attendee Superficial Wound Closed By: Last Modified By: Kiley Scott RN Parker, Katherine, RN 10/10/19 13:38:32 10/10/19 13:16:04 [facility] IntraOp Case Attendance Audit 10/10/19 13:38:32 Manager Cancer: DANY Modifier: PARKEK 1 <+> Time Out [...] <*> Procedure Ureteral Stent Insertion 10/10/19 13:16:04 Manager Cancer: DANY Modifier: PARKEK 1 <*> Case Attendee JOMAR JENKINS MD 1 <*> Role Performed Surgeon/Proceduralist, First 1 <*> Time In 10/10/19 12:05:00 1 <*> Procedure Extracorporeal Shockwave Lithotripsy(Left), Ureteral Stent Insertion 1 <*> Superficial Wound Closed By: JOMAR JENKINS MD 2 <*> Case Attendee ALMA ROSA GARZA APRN, CLAY MILLER 2 <*> Role Performed CLAY MILLER/Nurse Insulation Manager 2 <*> Time In 10/10/19 12:05:00 2 <*> Procedure Extracorporeal Shockwave Lithotripsy(Left), Ureteral Stent Insertion 3 <*> Case Attendee KIMMY RILEY MD-ANS 3 <*> Role Performed Anesthesiologist 3 <*> Time In 10/10/19 12:05:00 3 <*> Procedure Extracorporeal Shockwave Lithotripsy(Left), Ureteral Stent Insertion 3 <*> Other Attendee SUPERVISIOR 4 <*> Case Attendee REED MUNOZ, RN 4 <*> Role Performed Hyperbaric Nurse, Second 4 <*> Time In 10/10/19 12:05:00 4 <*> Procedure Extracorporeal Shockwave Lithotripsy(Left), Ureteral Stent Insertion 4 <*> Other Attendee RELIEF 5 <*> Case Attendee Chastity Gray, Steamfitter Apprentice 5 <*> Role Performed Scrub, First 5 <*> Time In 10/10/19 12:05:00 5 <*> Time Out 10/10/19 12:39:00 5 <*> Procedure Ureteral Stent Insertion 6 <*> Case Attendee Issa Perez 6 <*> Role Performed Auto Air Conditioning Installer 6 <*> Time In 10/10/19 12:05:00 6 <*> Procedure Extracorporeal Shockwave Lithotripsy(Left), Ureteral Stent Insertion 7 <*> Case Attendee Kiley Scott, LESLIE 7 <*> Role Performed Hyperbaric Nurse, First 7 <*> Time In 10/10/19 12:45:00 7 <*> Procedure Extracorporeal Shockwave Lithotripsy(Left) 8 <+> Case Attendee 8 <+> Role Performed 8 <*> Time In 10/10/19 12:05:00 8 <*> Time Out 10/10/19 13:03:00 8 <+> Procedure 10/10/19 13:08:18 Manager Cancer: DANY Modifier: DANY 1 <*> Procedure Extracorporeal [...] Lithotripsy(Left) <+> 8 Time In 10/10/19 13:03:21 Manager Cancer: DANY Modifier: PARKEK 1 <*> Procedure Extracorporeal [...] Extracorporeal Shockwave Lithotripsy(Left) <+> 8 Time Out [facility] IntraOp Case Times Entry 1 Patient In Room Time 10/10/19 12:05:00 Out Room Time 10/10/19 13:35:00 Anesthesia Start Time 10/10/19 12:05:00 Stop Time 10/10/19 13:35:00 Surgery / Procedure Times Start Time 10/10/19 12:22:00 Stop Time 10/10/19 13:29:00 Last Modified By: Kiley Scott RN 10/10/19 13:29:14 [facility] IntraOp Case Times Audit 10/10/19 13:38:31 Manager Cancer: DANY Modifier: PARKEK <+> 1 Out Room Time <+> 1 Stop Time 10/10/19 13:29:14 Manager Cancer: GERALDOEK Modifier: PARKEK <+> 1 Stop Time [facility] IntraOp Communication Entry 1 Communication To Family/Significant other Comment START OF PROCEDURES Communication By REED MUNOZ RN Date and Time 10/10/19 12:24:00 Last Modified By: Kiley Scott RN 10/10/19 12:55:34 [facility] IntraOp Departure from OR Entry 1 Integumentary Assessment Integumentary WDL Assessment WDL Transfer/Handoff Transfer to PACU Phase I Handoff Method Bedside/Face to face, Phone call Handoff Reported to LC NORWOOD RN Post-op Transport Stretcher/Gurney Via Patient Transport ALMA ROSA GARZA, Accompanied by [place] JEROME, Kiley Scott RN Last Modified By: Kiley Scott RN 10/10/19 12:56:37 [facility] IntraOp Dressing and Packing Entry 1 Type Dressing Location OPSITE Wound Dressing Item Other Applied By JOMAR JENKINS MD Other Comments TEGADERM Last Modified By: Kiley Scott RN 10/10/19 12:57:30 [facility] IntraOp Fire Risk Assessment Entry 1 Fire [...] Modified By: Kiley Scott RN 10/10/19 12:57:49 [facility] IntraOp General Case Casino Gaming Inspector 1 Case Information OR OR 19 [facility] Case Level 1 Room Verified Yes Wound Class II - Clean-Contaminated Specialty SN Urology Anesthesia Type General ASA Class 2 Diagnosis Preop Diagnosis LEFT RENAL STONE Postop Same As Preop Yes Postop Diagnosis LEFT RENAL STONE Last Modified By: Kiley Scott RN 10/10/19 12:58:28 [facility] IntraOp General Case Data Audit 10/10/19 13:26:41 Manager Cancer: DANY Modifier: DANY 1 <*> Preop Diagnosis RIGHT RENAL STONE 1 <*> Postop Diagnosis RIGHT RENAL STONE [facility] IntraOp Implant Log Entry 1 Type Implant (Synthetic) Implant Log Implant Type Other Implant STENT URET BRAID + Identification [id number] Description Implant Quantity 1 Implant Site OPSITE Implant [id number] Identification Lot Number Implant [place] Identification Sci:Urology/Gynecology Coffee Shop Manager Name: Implant [id number] Identification Catalog Number Implant Size 6 FR X 24 CM Implant Has an Yes Expiration Date Tissue Implant Last Modified By: Kiley Scott RN 10/10/19 13:21:15 [facility] IntraOp Intraoperative Assessment Entry 1 Valid History / Yes Physical in Chart Preoperative Yes Checklist Reviewed/Evaluated Allergies Reviewed Yes Patient is Latex No Sensitive Isolation Not applicable Precautions Noted Level of WDL Consciousness (WDL = Alert, Oriented to Person, Place, and Time) Skin Assessment No Verified Present Upon IVs Arrival to OR Last Modified By: Kiley Scott RN 10/10/19 12:58:37 [facility] IntraOp Intraoperative Equipment Entry 1 Entry 2 Type Monitoring Equipment Equipment Equipment Other ID Number [id number] Setting Intraop Monitoring Electrocardiogram Three lead placement [...] Parker, Katherine, RN 10/10/19 12:59:21 10/10/19 12:59:21 [facility] IntraOp Medication Admin Entry 1 Entry 2 Medication/Irrigant Normal Saline 0.9% lidocaine 2% urojet 1000ml irrigation - 10ml jelly - [id number] Combo Med List Time Administered Route of Irrigation TOPICAL Administration Dose Dose 500 Unit of Measure ml ml Volume Administered By JOMAR JENKINS MD JOHNSON, JUSTIN DALE, MD Procedure Irrigation Irrigant Volume In Irrigant Volume Out Last Modified By: Kiley Scott RN Parker, Katherine, RN 10/10/19 13:02:41 10/10/19 13:02:41 [facility] IntraOp Patient Positioning Entry 1 Procedure Extracorporeal [...] Modified By: Kiley Scott RN 10/10/19 13:05:24 [facility] IntraOp Patient Positioning Audit 10/10/19 13:08:18 Manager Cancer: DANY Modifier: PARKEK 1 <*> Procedure Extracorporeal Shockwave Lithotripsy(Left), Ureteral Stone Manipulation Laser, Ureteral Stent Insertion 10/10/19 13:05:24 Manager Cancer: DANY Modifier: PARKEK 1 <*> Procedure Extracorporeal Shockwave Lithotripsy(Left), Ureteral Stone Manipulation Laser, Ureteral Stent Insertion 1 <+> Device Position 1 <*> Positioned By JOMAR JENKINS MD [facility] IntraOp Sign In Entry 1 Patient, Site, [...] Modified By: Kiley Scott RN 10/10/19 13:05:35 [facility] IntraOp Sign Out Entry 1 RN Confirmation [...] Modified By: Kiley Scott RN 10/10/19 13:05:55 [facility] IntraOp Sign Out Audit 10/10/19 13:26:48 Manager Cancer: PARKEK Modifier: PARKEK <+> 1 RN Sign Out Signature Date/Time [facility] IntraOp Skin Prep Entry 1 Procedure Ureteral Stent Insertion Prescribed N/A Pre-Surgical Prep Completed Prep Area genitalia Intraop Prep Integumentary WDL Assessment WDL Prep Agents Betadine solution Prep by REED MUNOZ RN Hair Removal Methods No hair removal performed Last Modified By: Kiley Scott RN 10/10/19 13:06:37 [facility] IntraOp Skin Prep Audit 10/10/19 13:08:41 Manager Cancer: GERALDOEK Modifier: PARKEK 1 <*> Procedure Ureteral Stent Insertion 10/10/19 13:08:19 Manager Cancer: GERALDOEK Modifier: PARKEK 1 <*> Procedure Ureteral Stent Insertion [facility] IntraOp Surgical Procedures Entry 1 Entry 2 [...] Kiley Alexander RN 10/10/19 13:08:41 10/10/19 13:08:41 [facility] IntraOp Surgical Procedures Audit 10/10/19 13:29:51 Manager Cancer: GERALDOEK Modifier: PARKEK 2 <*> Procedure Ureteral Stent Insertion 2 <+> Specialty 10/10/19 13:29:33 Manager Cancer: GERALDOEK Modifier: PARKEK 1 <*> Procedure Extracorporeal Shockwave Lithotripsy 10/10/19 13:29:17 Manager Cancer: GERALDOEK Modifier: PARKEK <+> 1 Stop <+> 2 Stop [facility] IntraOp Temp Regulation Devices Entry 1 Temp Regulation Temperature Warm blankets, Forced Regulation Device Air Warming device Temperature Upper body Regulation Site Temperature monitored per Regulation Comment anesthesia, madie hugger available Last Modified By: Kiley Scott RN 10/10/19 13:08:53 [facility] IntraOP Time Out Entry 1 Procedure to [...] for Unfinalizing 10/11/19 12:48 [id number] Correct Billing Electronically signed by Cesar Raymond Conversion Instructional Support Technician Cerner at 03/13/2023 7:18 PM CDT documented in this encounter Plan of Treatment Not on file documented as of this encounter Visit Diagnoses Not on filedocumented in this encounter Care Teams Register Clerk Relationship Specialty Start Date End Date Tyrell Magana MD [address] [place] [address] PCP - General Family Medicine 11/15/23 documented as of this encounter
--- OUTSIDE RECORDS SUMMARY | 2025-06-26 12:46 | XMS_ITS | Encounter Summary ---
Author Organization [employer] ([place], [place], [place]) Address [address] [place] [address] Care Team Providers Care Production Material Handler Name Role Phone Tyrell Magana MD Primary Care Provider +1- [phone] Encounter Details Date Type Department Care Team (Late st Contact Info) Description 10/10/2019 Transcribed Document [facility] [place] Family Medicine [facility] [place] [address] ProviderBen MD [address] [place] [address] 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 Tobacco Use Types [...] - Ben ProviderMD - 10/10/2019 3:14 PM WASHCLOTH FOLDER Patient Education Materials Follows: Ureteral Stent Implantation [...] including vitamins, herbs, eye drops, creams, and affc-xuu-rgbrbyh medicines. ??? Any problems you or family [...] these instructions at home: Medicines ??? Take eczu-vut-kvfzjbv and prescription medicines only as told by [...] 12/03/2008 Document Revised: 10/05/2017 Document Reviewed: 10/05/2017 [employer] Patient Education ? 2019 [employer]. Outpatient Surgery, Adult, Care After These instructions [...] and water are not available, use hand top closer. ? Change your dressing as told by [...] or a bad smell. Medicines ??? Take pujt-alw-oowrwcj and prescription medicines only as told by [...] 03/06/2017 Document Revised: 06/22/2018 Document Reviewed: 03/06/2017 [employer] Patient Education ? 2019 [employer]. documented in this encounter Plan of Treatment Not on file documented as of this encounter Visit Diagnoses Not on filedocumented in this encounter Care Teams Production Material Handler Relationship Specialty Start Date End Date Tyrell Magana MD [address] [place] [address] PCP - General Family Medicine 11/15/23 documented as of this encounter
--- OUTSIDE RECORDS SUMMARY | 2025-06-26 12:46 | XMS_ITS | Encounter Summary ---
Author Organization [employer] ([place], [place], [place], [place]) Address [address] [place] [address] Care Team Providers Care Cnc Service Technician Name Role Phone Tyrell Magana MD Primary Care Provider +1- [phone] Encounter Details Date Type Department Care Team (Late st Contact Info) Description 05/15/2021 Transcribed Document [facility] [place] [facility] [place] [address] ProviderBen MD [address] [place] [address] 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 Tobacco Use Types Packs/Day [...] Ben ProviderMD - 05/15/2021 7:56 AM CDT [facility] Main OR Preop Summary Primary Physician: JOMAR JENKINS MD Finalized Date/Time: 05/15/21 15:48:11 Pt. Name: CELINE DC /Sex: 1985 Female Med Rec #: [id number] Physician: JOMAR JENKINS MD Financial #: [id number] Pt. Type: O Room/Bed: /11 Admit/Disch: 05/15/21 06:21:00 - 05/15/21 10:33:00 Institution: [facility] PreOp Case Times Entry 1 In Preop 05/15/21 06:54:00 Ready for Holding n/a Room Patient Ready for 05/15/21 07:26:00 Surgery Patient Out of Preop 05/15/21 07:37:00 Patient Out of n/a Holding Room Last Modified By: Heather Lipscomb, RN 05/15/21 15:48:10 [facility] PreOp Case Times Audit 05/15/21 15:48:10 Jig Boring Machine Set Up Operator: [id number] Modifier: JUDITH <+> 1 Patient Out of Preop Finalized By: Heather Lipscomb, RN Document Signatures Signed By: Heather Lipscomb RN 05/15/21 15:48 documented in this encounter Plan of Treatment Not on file documented as of this encounter Visit Diagnoses Not on filedocumented in this encounter Care Teams Cnc Service Technician Relationship Specialty Start Date End Date Tyrell Magana MD [address] [place] [address] PCP - General Family Medicine 11/15/23 documented as of this encounter
--- OUTSIDE RECORDS SUMMARY | 2025-06-26 12:46 | XMS_ITS | Encounter Summary ---
Author Organization [employer] ([place], [place], [place], [place]) Address [address] [place] [address] Care Team Providers Care Commercial Plumber Name Role Phone Tyrell Magana MD Primary Care Provider +1- [phone] Encounter Details Date Type Department Care Team (Late st Contact Info) Description 10/10/2019 Transcribed Document [facility] [place] Family Medicine [address] [place] [address] ProviderBen MD [address] [place] [address] 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 Tobacco Use Types [...] - Historical ProviderMD - 10/10/2019 3:15 PM PEDIGREE RESEARCHER [facility] [place] [address] CELINE DC :1985 Visit [...] Appointment has been made JESICA SCHEDULED Where: [address] [place] [address] Purple Harry (1) Medications What How Much When Instructions Next Dose acetaminophen-hydrocodone (Florence 7.5 mg-325 mg oral tablet) 1 Tablet(s) Oral Every 6 Hours as needed for for pain Duration: 3 Day(s) Printed Prescription DULoxetine (Cymbalta 60 mg oral delayed release capsule) Oral Every Day DULoxetine (Cymbalta) 60 Milligram(s) Oral Every Day ethinyl estradiol-norethindrone (Taytulla 1 mg-20 mcg oral capsule) Oral Every Day fluticasone nasal (Childrens Flonase 50 mcg/ inh nasal spray) 1 [place](s) Nasal Every Day glycopyrrolate 1 Milligram(s) Oral [...] including vitamins, herbs, eye drops, creams, and nytk-iyd-refzhhy medicines. ??? Any problems you or family [...] 11/11/2001 Document Revised: 04/21/2017 Document Reviewed: 05/28/2016 [employer] Interactive Patient Education ?? 2019 [employer] Inc. Lithotripsy, Care After This sheet gives [...] these instructions at home: Medicines ??? Take peqj-bsq-ehsvkgs and prescription medicines only as told by [...] 12/03/2008 Document Revised: 10/05/2017 Document Reviewed: 10/05/2017 [employer] Interactive Patient Education ?? 2019 [employer] Inc. Outpatient Surgery, Adult, Care After These [...] and water are not available, use hand pizza chef. ? Change your dressing as told by [...] or a bad smell. Medicines ??? Take ycng-iys-mhxlbrk and prescription medicines only as told by [...] 03/06/2017 Document Revised: 06/22/2018 Document Reviewed: 03/06/2017 [employer] Interactive Patient Education ?? 2019 [employer]. acetaminophen and hydrocodone (a SEET a MIN oh fen and mya droe KOE done) Hycet, Lorcet, Florence, Verdrocet, Vicodin, Xodol, Zamicet What is the [...] may report side effects to FDA at 4-464-AMY-8739. What other drugs will affect acetaminophen and [...] affect acetaminophen and hydrocodone, including prescription and adyb-mzj-vucruhc medicines, vitamins, and herbal products. Not all [...] to ensure that the information provided by [employer]. ('Archive System[employer]') is accurate, up-to-date, and complete, but no guarantee is made to that effect. Drug information contained herein may be time sensitive. [employer] information has been compiled for use by healthcare practitioners and consumers in the [place] and therefore [employer] does not warrant that uses outside of the [place] are appropriate, unless specifically indicated otherwise. [employer]'s drug information does not endorse drugs, diagnose patients or recommend therapy. Global Locates drug information is an informational resource designed [...] effective or appropriate for any given patient. [employer] does not assume any responsibility for any aspect of healthcare administered with the aid of information [employer] provides. The information contained herein is not intended to cover all possible uses, directions, precautions, warnings, drug interactions, allergic reactions, or adverse effects. If you have questions about the drugs you are taking, check with your doctor, nurse or pharmacist. Copyright 9964-7805 [employer]. Version: 15.02. Revision Date: 10/02/2018. Emergency Awareness [...] Assistance with quitting is available by contacting 1-637-DJQP-NOW. This is a free resource providing counseling, [...] Vw: CR Abdomen 1 Vw Patient Name:CELINE CD I have received this information and was given the opportunity to ask questions. Patient/Cold Header Name: Patient/Cold Header Signature: Relationship to Patient: Clinician/Hospital Cold Header Signature: Date: documented in this encounter Plan of Treatment Not on file documented as of this encounter Visit Diagnoses Not on filedocumented in this encounter Care Teams Commercial Plumber Relationship Specialty Start Date End Date Tyrell Magana MD [address] [place] [facility] [address] [place] [id number] PCP - General Family Medicine 11/15/23 documented as of this encounter
--- OUTSIDE RECORDS SUMMARY | 2025-06-26 12:46 | XMS_ITS | Encounter Summary ---
Author Organization [employer] ([place], [place], [place], [place]) Address [address] [place] [address] Care Team Providers Care Report Programmer Name Role Phone Tyrell Magana MD Primary Care Provider +1- [phone] Encounter Details Date Type Department Care Team (Late st Contact Info) Description 10/10/2019 Transcribed Document [facility] [place] Family Medicine [address] [place] [address] ProviderBen MD [address] [place] [address] 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 Tobacco Use Types Packs/Day [...] - Historical ProviderMD - 10/10/2019 1:20 PM TIRE VULCANIZER DATE OF PROCEDURE: 10/10/2019 SURGEON: Lincoln Dey MD PREOPERATIVE DIAGNOSIS: Left ureteral stone. POSTOPERATIVE DIAGNOSIS: Left ureteral stone with stone manipulation to the renal pelvis. PROCEDURES PERFORMED: 1. Cystourethroscopy. 2. Left ureteral stent placement. 3. Left ureteral stone manipulation. 4. Left extracorporeal shock wave lithotripsy. ANESTHESIA: General. BLOOD LOSS: None. COMPLICATIONS: None. SPECIMENS: None. OPERATIVE FINDINGS: 1. A 6-Emirati x 24 cm stent placed with good [...] within the mid to proximal ureter. A 6-Emirati x 24 cm ureteral stent was used [...] with instruction for outpatient followup and KUB. /[id number] MD GERHARD Garcia/FLOWER / GERHARD / MODL /[id number] Electronically signed by Segundo, [facility] Julio Filling And Packing Supervisor Cerner at 03/13/2023 7:06 PM CDT documented in this encounter Plan of Treatment Not on file documented as of this encounter Visit Diagnoses Not on filedocumented in this encounter Care Teams Report Programmer Relationship Specialty Start Date End Date Tyrell Magana MD [address] [place] [address] [place] [address] PCP - General Family Medicine 11/15/23 documented as of this encounter
--- OUTSIDE RECORDS SUMMARY | 2025-06-26 12:46 | XMS_ITS | Encounter Summary ---
Author Organization [employer] ([place], [place], [place], [place]) Address [address] [place] [address] Care Team Providers Care Editor Sound Name Role Phone Tyrell Magana MD Primary Care Provider +1- [phone] Encounter Details Date Type Department Care Team (Late st Contact Info) Description 05/15/2021 Transcribed Document [facility] [place] Family Medicine [facility] [place] [address] ProviderBen MD [address] [place] [address] 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 Tobacco Use Types [...] Historical ProviderMD - 05/15/2021 10:[address] [facility] [place] [address] CELINE DC [...] Follow up appointment is scheduled at the [place] location for 05/28/21 at 1:45pm. Please arrive to this appointment at least 20 minutes early for scheduled KUB X-Ray. Where: [address] [place] [address]- Medications What How Much When Instructions Next Dose cyclobenzaprine (Flexeril) 5 Milligram(s) Oral Two Times A Day as needed for Facet Joint Syndrome busPIRone (BuSpar) 7.5 Milligram(s) Oral Two Times A Day ethinyl estradiol-norethindrone (Junel 1.5/ 30 oral tablet) 1 Tablet(s) Oral Every Day fluticasone nasal (Flonase) 1 [place](s) Nostrils Both Every Day as needed for [...] and water are not available, use hand casino cage manager. ? Change your dressing as told by [...] or a bad smell. Medicines ??? Take nkjw-eok-tjdnlja and prescription medicines only as told by [...] provider. Document Revised: 02/12/2019 Document Reviewed: 03/06/2017 [employer] Patient Education ?? 2020 [employer] Inc. General Anesthesia, Adult, Care After This [...] activities are safe for you. ??? Take msez-pty-dcexdvk and prescription medicines only as told by [...] provider. Document Revised: 11/17/2018 Document Reviewed: 06/30/2018 ElseContact At Once! Patient Education ?? 2020 Smart [employer]. Lithotripsy, Care After This sheet gives you [...] these instructions at home: Medicines ??? Take lfjn-zcd-zlumvyo and prescription medicines only as told by [...] provider. Document Revised: 02/25/2020 Document Reviewed: 10/05/2017 ElseContact At Once! Patient Education ?? 2020 [employer] Inc. Emergency Awareness and Preventative Care STROKE [...] Assistance with quitting is available by contacting 0-216-UQTC-NOW. This is a free resource providing counseling, [...] was given the opportunity to ask questions. Patient/Hse Coordinator Name: Patient/Hse Coordinator Signature: Relationship to Patient: Clinician/Hospital Hse Coordinator Signature: Date: Electronically signed by Segundo, [facility] Conversion Kieselguhr Regenerator Operator Cerner at 03/13/2023 7:03 PM CDT documented in this encounter Plan of Treatment Not on file documented as of this encounter Visit Diagnoses Not on filedocumented in this encounter Care Teams Editor Sound Relationship Specialty Start Date End Date Tyrell Magana MD [address] [place] [address] [place] [id number] PCP - General Family Medicine 11/15/23 documented as of this encounter
--- OUTSIDE RECORDS SUMMARY | 2025-06-26 12:46 | XMS_ITS | Encounter Summary ---
Author Organization [employer] ([place], [place], [place], [place]) Address [address] [place] [address] Care Team Providers Care Animation Artist Name Role Phone Tyrell Magana MD Primary Care Provider +1- [phone] Encounter Details Date Type Department Care Team (Late st Contact Info) Description 05/15/2021 Transcribed Document [facility] [place] Family Medicine [facility] [place] [address] ProviderBen MD [address] [place] [address] 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 Tobacco Use Types [...] Ben ProviderMD - 05/15/2021 7:56 AM CDT [facility] Main OR IntraOp Summary Primary Physician: JOMAR JENKINS MD Finalized Date/Time: 05/26/21 11:04:59 Pt. Name: CELINE DC /Sex: 1985 Female Med Rec #: [id number] Physician: JOMAR JENKINS MD Financial #: [id number] Pt. Type: O Room/Bed: Admit/Disch: 05/15/21 06:21:00 - 05/15/21 10:33:00 Institution: [facility] IntraOp Case Attendance Entry 1 Entry 2 Entry 3 Case Attendee JOMAR JENKINS MD Poff, Janie, RN Issa Perez Role Performed Surgeon/Proceduralist, Ela Teacher, First Vice President Of Development First Time In 05/15/21 07:37:00 05/15/21 07:37:00 [...] MONTIEL NA CELLAROSI-YORBA, MARIA, MD-ANS Role Performed THROUGH FREIGHT ENGINEER/Nurse Banking Officer Anesthesiologist of Record Time In 05/15/21 07:37:00 05/15/21 07:37:00 Time Out 05/15/21 08:47:00 05/15/21 08:47:00 Procedure Extracorporeal Extracorporeal Shockwave Shockwave Lithotripsy(Right) Lithotripsy(Right) Other Attendee Superficial Wound Closed By: Last Modified By: Maryan Suarez RN Poff, Janie, RN 05/15/21 08:47:25 05/15/21 08:47:59 [facility] IntraOp Case Attendance Audit 05/15/21 08:47:59 Surgery Aid: GAYATHRI Modifier: POFFJAN 5 <+> Case Attendee 5 <*> Procedure Extracorporeal Shockwave Lithotripsy(Right) 05/15/21 08:47:25 Surgery Aid: GAYATHRI Modifier: POFFJAN 1 <+> Time Out [...] Out 5 <*> Procedure Extracorporeal Shockwave Lithotripsy(Right) [facility] IntraOp Case Times Entry 1 Patient In Room Time 05/15/21 07:37:00 Out Room Time 05/15/21 08:47:00 Anesthesia Start Time 05/15/21 07:37:00 Stop Time 05/15/21 08:47:00 Surgery / Procedure Times Start Time 05/15/21 07:56:00 Stop Time 05/15/21 08:42:00 Last Modified By: Maryan Suarez RN 05/15/21 08:47:22 [facility] IntraOp Case Times Audit 05/15/21 08:47:22 Surgery Aid: POFFJAN Modifier: POFFJAN <+> 1 Out Room Time <+> 1 Stop Time 05/15/21 08:42:50 Surgery Aid: POFFJAN Modifier: POFFJAN <+> 1 Stop Time [facility] IntraOp Communication Entry 1 Communication To Family/Significant other Comment Procedure start Communication By Maryan Suarez RN Date and Time 05/15/21 08:00:00 Last Modified By: Maryan Suarez RN 05/15/21 08:14:19 [facility] IntraOp Delays Entry 1 Delay Reason Other Duration 7 Minute(s) Comment Surgeon arrived to sign consent and vikash patient at 0730 Last Modified By: Maryan Suarez RN 05/15/21 08:08:46 [facility] IntraOp Departure from OR Entry 1 Integumentary Assessment Integumentary WDL Assessment WDL Transfer/Handoff Transfer to PACU Phase I Handoff Method Phone call Post-op Transport Caridad/Robert Via Patient Transport DARA MONTIEL NA, Accompanied by Maryan Suarez RN Last Modified By: Maryan Suarez RN 05/15/21 08:14:46 [facility] IntraOp Fire Risk Assessment Entry [...] Modified By: Maryan Suarez RN 05/15/21 08:11:41 [facility] IntraOp General Case Tram Operator 1 Case Information OR OR 19 [facility] Case Level 1 Room Verified Yes Wound Class II - Clean-Contaminated Specialty Urology Anesthesia Type General ASA Class 3 Diagnosis Preop Diagnosis Right renal calculus Postop Same As Preop Yes Postop Diagnosis Right renal calculus Last Modified By: Maryan Suarez RN 05/15/21 08:16:10 [facility] IntraOp Intraoperative Assessment Entry 1 Handoff Report Chastity Erazo, Nurse Received from Rn Transfer Handoff Method Bedside/Face to face, Online nursing summary Valid History / Yes Physical in Chart Preoperative Yes Checklist Reviewed/Evaluated Allergies Reviewed Yes Patient is Latex No Sensitive Isolation Not applicable Precautions Noted Level of WDL Consciousness (WDL = Alert, Oriented to Person, Place, and Time) Skin Assessment Yes Verified Present Upon IVs Arrival to OR Last Modified By: Maryan Suarez RN 05/15/21 08:13:19 [facility] IntraOp Intraoperative Equipment Entry 1 Type Monitoring Equipment Intraop Monitoring Electrocardiogram Five lead placement (ECG) Electrode Placement Blood Pressure Non-Invasive BP Device Source Antiembolic Devices Antiembolic Devices Sequential compression device, knee high Antiembolic Device Bilateral Location Antiembolic Device [id number] ID Number Scopes Photo/Video Documentation Photo No Video No Intraop Equipment Sequential compression Comment devices on and in operation prior to induction. Last Modified By: Maryan Suarez RN 05/15/21 08:16:40 [facility] IntraOp Patient Positioning Entry 1 [...] MONTIEL NA, Madden, Jerrild, Maryan Suarez, RN, JMOAR JENKINS MD Position Verified Positioning Yes Verified by Anesthesia Positioning Yes Verified by Surgeon Last Modified By: Maryan Suarez RN 05/15/21 08:10:45 [facility] IntraOp Sign In Entry 1 [...] Warming Measures Yes Taken Last Modified By: Marayn Suarez RN 05/15/21 08:08:59 [facility] IntraOp Sign Out Entry 1 [...] Modified By: Maryan Suarez RN 05/15/21 08:47:36 [facility] IntraOp Sign Out Audit 05/15/21 08:47:36 Surgery Aid: GAYATHRI Modifier: GAYATHRI <+> 1 RN Sign Out Signature Date/Time 05/15/21 08:17:56 Surgery Aid: GAYATHRI Modifier: GAYATHRI 1 <*> OUTCOME STATEMENT: Absence of N/A observable signs or symptoms of radiation injury [facility] IntraOp Surgical Procedures Entry 1 Procedure Extracorporeal Shockwave Lithotripsy Modifiers Right Additional Right extracorporeal Procedure shockwave lithotripsy Description Primary Procedure Yes Primary Surgeon JOMAR JENKINS MD Start 05/15/21 07:56:00 Stop 05/15/21 08:42:00 Anesthesia Type General Specialty Urology Wound Class I - Clean Last Modified By: Maryan Suarez RN 05/15/21 08:47:30 [facility] IntraOp Surgical Procedures Audit 05/15/21 08:47:30 Surgery Aid: GAYATHRI Modifier: GAYATHRI <+> 1 Stop [facility] IntraOp Temp Regulation Devices Entry 1 Temp Regulation Temperature Forced Air Warming Regulation Device device, Room temperature, Warm blankets Temperature 63799 Regulation Device Serial/Unit Number Temperature Upper body Regulation Site Temperature DARA MONTIEL, SYLVAIN Regulation Device Applied by Last Modified By: Maryan Suarez RN 05/15/21 08:17:31 [facility] IntraOP Time Out Entry 1 [...] WATTSDR Correct Billing Electronically signed by Segundo [facility] Conversion Model Engine Mechanic Cerner at 03/13/2023 6:58 PM CDT documented in this encounter Plan of Treatment Not on file documented as of this encounter Visit Diagnoses Not on filedocumented in this encounter Care Teams Animation Artist Relationship Specialty Start Date End Date Tyrell Magana MD [address] [place] [address] [place] [address] PCP - General Family Medicine 11/15/23 documented as of this encounter
--- OUTSIDE RECORDS SUMMARY | 2025-06-26 12:46 | XMS_ITS | Encounter Summary ---
Author Organization [employer] ([place], [place], [place], [place]) Address [address] [place] [address] Care Team Providers Care Meteorology Teacher Name Role Phone Tyrell Magana MD Primary Care Provider +1- [phone] Encounter Details Date Type Department Care Team (Late st Contact Info) Description 10/09/[address] [facility] [place] Family Medicine [address] [place] [address] ProviderBen MD [address] [place] [address] 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 Tobacco Use Types [...] - Historical ProviderMD - 10/09/2019 6:09 PM LOGISTICS SUPERVISOR PAT Adult Entered On: 10/09/2019 18:11 EST Performed On: 10/09/2019 18:09 EST by Zainab Morales, LESLIE Pain Assessment Pain Assessment : Initial assessment Pain Scale Used : 0-10 Scale Location : Flank, left JILLIANGILBERTO RN - 10/10/2019 10:57 EST Height and Weight, Clinical Dosing Height Source : Measured Height Entry Format : Christian Height, Inches : 67 Inch(Converted to: 5 ft 7 Inch, 170.18 cm) Clinical Height : 170.18 cm Weight Source : Standing scale Weight Entry Format : Christian Clinical Dosing Weight : 101.36 kg Weight, Pounds : 223 lb Body Surface Area (BSA) : 2.12 m2 Body Mass Index : 35 kg/m2 (HI) Gilmer Body Weight : 61 kg GILBERTO WALSH [...] Zainab Morales RN - 10/09/2019 18:09 EST Apex Suicide Severity Rating Scale (C-SSRS) CSSRS Past [...] 10/09/2019 18:09 EST General Info Support Person/Patient Freight Sorter : Yes Support Person/Pt Rep Name : Moy [phone] Rajinder Family/Rep/Phys Notified of Admit : No Information Obtained From : Patient Primary Language : Pakistani Preferred Communication Mode : Verbal Communication Barrier [...] on filedocumented in this encounter Care Teams Meteorology Teacher Relationship Specialty Start Date End Date Tyrell Magana MD [address] [place] [address] [place] [address] PCP - General Family Medicine 11/15/23 documented as of this encounter
--- OUTSIDE RECORDS SUMMARY | 2025-06-26 12:46 | XMS_ITS | Encounter Summary ---
Author Organization [employer] ([place], [place], [place], [place]) Address [address] [place] [address] Care Team Providers Care Heater Room Helper Name Role Phone Tyrell Magana MD Primary Care Provider +1- [phone] Encounter Details Date Type Department Care Team (Late st Contact Info) Description 10/10/2019 Transcribed Document [facility] [place] [address] [place] [address] ProviderBen MD [address] [place] [address] 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 Tobacco Use Types [...] - Ben ProviderMD - 10/10/2019 12:22 PM EARLY CHILDHOOD TEACHER ASSISTANT [facility] Main OR PostOp Summary Primary Physician: JOMAR JENKINS MD Finalized Date/Time: 10/10/19 15:33:31 Pt. Name: CELINE DC /Sex: 1985 Female Med Rec #: [id number] Physician: JOMAR JENKINS MD Financial #: [id number] Pt. Type: O Room/Bed: /1 Admit/Disch: 10/10/19 09:16:00 - Institution: [facility] Main OR PostOp Case Times Entry 1 In PACU II 10/10/19 14:21:00 Ready for PACU II 10/10/19 15:05:00 Discharge Discharge from PACU 10/10/19 15:22:00 II Last Modified By: RENAY ROSSI RN 10/10/19 15:23:27 Finalized By: RENAY ROSSI, RN Document Signatures Signed By: RENAY ROSSI RN 10/10/19 15:33 Electronically signed by Segundo [facility] Conversion International Student Advisor Cerner at 03/13/2023 7:13 PM CDT documented in this encounter Plan of Treatment Not on file documented as of this encounter Visit Diagnoses Not on filedocumented in this encounter Care Teams Heater Room Helper Relationship Specialty Start Date End Date Tyrell Magana MD [address] [place] [address] [place] [address] PCP - General Family Medicine 11/15/23 documented as of this encounter
--- OUTSIDE RECORDS SUMMARY | 2025-06-26 12:46 | XMS_ITS | Encounter Summary ---
Author Organization [employer] ([place], [place], [place], [place]) Address [address] [place] [address] Care Team Providers Care Cadet Deck Name Role Phone Tyrell Magana MD Primary Care Provider +1- [phone] Encounter Details Date Type Department Care Team (Latest Contact Info) Description 06/12/2025 Travel 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 Tobacco Use Types Packs/Day [...] Date Surinder rded Speak language other than Malawian at home Not on file 12/16/2023 Want [...] on filedocumented in this encounter Care Teams Cadet Deck Relationship Specialty Start Date End Date Tyrell Magana MD [address] [place] [address] [place] [address] PCP - General Family Medicine 11/15/23 documented as of this encounter
--- OUTSIDE RECORDS SUMMARY | 2025-06-26 12:46 | XMS_ITS | Encounter Summary ---
Author Organization [facility] Address [address] [place] [address] Care Team Providers Care Sole Dyer Name Role Phone Dustin Gomez MD Primary Care Provider Unavailabl e Doctor, Vicki Primary Care Provider Unavailabl e Encounter Details Date Type Department Care Team (Late st Contact Info) Description 08/14/2007 Historical Encounter Global Leann Bond MD [address] [facility] [address] [place] [address] 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 Tobacco Use Types Packs/Day Years [...] on filedocumented in this encounter Care Teams Sole Dyer Relationship Specialty Start Date End Date Dustin Gomez MD PCP - General 08/02/08 02/11/14 Vicki Villavicencio [place] PCP - General Family Medicine 02/12/14 12/30/17 documented as of this encounter
--- OUTSIDE RECORDS SUMMARY | 2025-06-26 12:46 | XMS_ITS | Encounter Summary ---
Author Organization [employer] ([place], [place], [place], [place]) Address [address] [place] [address] Care Team Providers Care Biodiesel Process Control Technician Name Role Phone Tyrell Magana MD Primary Care Provider +1- [phone] Encounter Details Date Type Department Care Team (Late st Contact Info) Description 10/10/2019 Transcribed Document [facility] [place] Medicine [address] [place] [address] ProviderBen MD [address] [place] [address] 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 Tobacco Use Types [...] - Ben ProviderMD - 10/10/2019 12:15 PM SENIOR TECHNICAL SPECIALIST [facility] Main OR Preop Summary Primary Physician: JOMAR JENKINS MD Finalized Date/Time: 10/10/19 12:06:45 Pt. Name: CELINE DC /Sex: 1985 Female Med Rec #: [id number] Physician: JOMAR JENKINS MD Financial #: [id number] Pt. Type: O Room/Bed: /1 Admit/Disch: 10/10/19 09:16:00 - Institution: [facility] Pre Case Times Entry 1 In Preop 10/10/19 09:30:00 Ready for Holding n/a Room Patient Ready for 10/10/19 11:28:00 Surgery Patient Out of Preop 10/10/19 12:02:00 Patient Out of n/a Holding Room Last Modified By: Heather Lipscomb RN 10/10/19 12:06:44 Finalized By: Heather Lipscomb, RN Document Signatures Signed By: Heather Lipscomb RN 10/10/19 12:06 Electronically signed by [facility] Conversion Corporate Quality Assurance Manager Cerner at 03/13/2023 7:11 PM CDT documented in this encounter Plan of Treatment Not on file documented as of this encounter Visit Diagnoses Not on filedocumented in this encounter Care Teams Biodiesel Process Control Technician Relationship Specialty Start Date End Date Tyrell Magana MD [address] [place] [address] PCP - General Family Medicine 11/15/23 documented as of this encounter
--- OUTSIDE RECORDS SUMMARY | 2025-06-26 12:46 | XMS_ITS | Encounter Summary ---
Author Organization [facility] Address [address] [place] [address] Care Team Providers Care Yeast Supervisor Name Role Phone Dustin Gomez MD [...] on filedocumented in this encounter Care Teams Yeast Supervisor Relationship Specialty Start Date End Date Dustin Gomez MD PCP - General 08/02/08 02/11/14 [facility] [place] PCP - General Family Medicine 02/12/14 12/30/17 documented as of this encounter
--- OUTSIDE RECORDS SUMMARY | 2025-06-26 12:46 | XMS_ITS | Encounter Summary ---
Author Organization [facility] Address [address] [place] [address] Care Team Providers Care Security System Analyst Name Role Phone Dustin Gomez MD Primary [...] on filedocumented in this encounter Care Teams Security System Analyst Relationship Specialty Start Date End Date Dustin Gomez MD PCP - General 08/02/08 02/11/14 Vicki Villavicencio [place] PCP - General Family Medicine 02/12/14 12/30/17 documented as of this encounter
--- OUTSIDE RECORDS SUMMARY | 2025-06-26 12:46 | XMS_ITS | Encounter Summary ---
Author Organization [employer] ([place], [place], [place], [place]) Address [address] [place] [address] Care Team Providers Care Feed Research Aide Name Role Phone Tyrell Magana MD Primary Care Provider +1- [phone] Encounter Details Date Type Department Care Team (Late st Contact Info) Description 10/10/2019 Transcribed Document [facility] [place] [facility] [place] [address] ProviderBen MD [address] [place] [address] 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 Tobacco Use Types [...] - Historical ProviderMD - 10/10/2019 11:38 AM BENEFITS PROCESSOR Patient: CELINE DC Age: 34 years Sex: [...] Childrens Flonase 50 mcg/inh nasal spray: 1 [place], Nasal, Daily, 0 Refill(s) Cymbalta 60 mg [...] Childrens Flonase 50 mcg/inh nasal spray 1 [place], Nasal, Daily Cymbalta 60 mg, Oral, Daily [...] Problems Urinary tract infection / SNOMED CT 962127247 / Confirmed Sinusitis / SNOMED CT 99091093 / Confirmed Renal calculus / SNOMED CT 760586081 / Confirmed Migraine / SNOMED CT 27991297 / Confirmed Insulin resistance / SNOMED CT 4966437890 / Confirmed High blood pressure / SNOMED CT 81881388 / Confirmed 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 Integumentary: Warm, Dry, [place]. Neurologic: Alert, Oriented. Psychiatric: Cooperative, Appropriate mood [...] on filedocumented in this encounter Care Teams Feed Research Aide Relationship Specialty Start Date End Date Tyrell Magana MD [address] [place] [address] PCP - General Family Medicine 11/15/23 documented as of this encounter
--- OUTSIDE RECORDS SUMMARY | 2025-06-26 12:46 | XMS_ITS | Encounter Summary ---
Author Organization [employer] ([place], [place], [place], [place]) Address [address] [place] [address] Care Team Providers Care Supervisor Fleshing Name Role Phone yTrell Magana MD Primary Care Provider +1- [phone] Encounter Details Date Type Department Care Team (Late st Contact Info) Description 10/10/2019 Transcribed Document [facility] [place] [address] [place] [address] ProviderBen MD [address] [place] [address] 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 Tobacco Use Types [...] - Ben ProviderMD - 10/10/2019 12:22 PM DIRECTOR OF ALUMNI RELATIONS [facility] Main OR PACU Summary Primary Physician: JOMAR JENKINS MD Finalized Date/Time: 10/10/19 14:18:09 Pt. Name: CELINE DC /Sex: 1985 Female Med Rec #: [id number] Physician: JOMAR JENKINS MD Financial #: [id number] Pt. Type: O Room/Bed: /1 Admit/Disch: 10/10/19 09:16:00 - Institution: [facility] Main OR PACU I Case Times Entry 1 In PACU I 10/10/19 13:39:00 Ready for PACU 10/10/19 14:00:00 Discharge Discharge from PACU 10/10/19 14:20:00 I Last Modified By: Aisha Bone RN 10/10/19 14:17:55 [facility] Main OR PACU Acuity Entry 1 Start Time 10/10/19 14:00:00 Stop Time 10/10/19 14:20:00 Acuity Level [facility] PACU Acuity I Last Modified By: Aisha Bone RN 10/10/19 14:18:05 Finalized By: Aisha Bone RN Document Signatures Signed By: Aisha Bone RN 10/10/19 14:18 Electronically signed by [facility] Conversion Electric Power Line Examiner Cerner at 03/13/2023 7:13 PM CDT documented in this encounter Plan of Treatment Not on file documented as of this encounter Visit Diagnoses Not on filedocumented in this encounter Care Teams Supervisor Fleshing Relationship Specialty Start Date End Date Tyrell Magana MD [address] [place] [address] PCP - General Family Medicine 11/15/23 documented as of this encounter
--- OUTSIDE RECORDS SUMMARY | 2025-06-26 12:46 | XMS_ITS | Encounter Summary ---
Author Organization [employer] ([place], [place], [place], [place]) Address [address] [place] [address] Care Team Providers Care Market Research Coordinator Name Role Phone Tyrell Magana MD Primary Care Provider +1- [phone] Encounter Details Date Type Department Care Team (Late st Contact Info) Description 05/15/2021 Transcribed Document [facility] [place] Family Medicine [facility] [place] [address] ProviderBen MD [address] [place] [address] 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 Tobacco Use Types [...] these instructions at home: Medicines ??? Take roji-qax-nsossil and prescription medicines only as told by [...] provider. Document Revised: 02/25/2020 Document Reviewed: 10/05/2017 [employer] Patient Education ? 2019 [employer]. Pharmacology General Anesthesia, Adult, Care After This [...] activities are safe for you. ??? Take ksjg-iff-zkvtbob and prescription medicines only as told by [...] provider. Document Revised: 11/17/2018 Document Reviewed: 06/30/2018 [employer] Patient Education ? 2020 [employer] Procedures Outpatient Surgery, Adult, Care After [...] and water are not available, use hand retail selling specialist. ? Change your dressing as told by [...] or a bad smell. Medicines ??? Take kyvf-iln-crxrifv and prescription medicines only as told by [...] Reviewed: 03/06/2017 Elsevier Patient Education ? 2019 [employer] documented in this encounter Plan of Treatment Not on file documented as of this encounter Visit Diagnoses Not on filedocumented in this encounter Care Teams Market Research Coordinator Relationship Specialty Start Date End Date Tyrell Magana MD [address] [place] [address] PCP - General Family Medicine 11/15/23 documented as of this encounter
--- OUTSIDE RECORDS SUMMARY | 2025-06-26 12:46 | XMS_ITS | Encounter Summary ---
Author Organization [employer] ([place], [place], [place], [place]) Address [address] [place] [address] Care Team Providers Care Industrial/Organizational Psychologist Name Role Phone Tyrell Magana MD Primary Care Provider +1- [phone] Encounter Details Date Type Department Care Team (Late st Contact Info) Description 10/10/2019 Transcribed Document [facility] Family Medicine [facility] [place] [address] ProviderBen MD [address] [place] [address] 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 Tobacco Use Types [...] - Ben ProviderMD - 10/10/2019 12:50 PM DEAN OF WOMEN Patient: CELINE MARKS Age: 34 Years Sex: [...] on filedocumented in this encounter Care Teams Industrial/Organizational Psychologist Relationship Specialty Start Date End Date Tyrell Magana MD [address] [place] [address] PCP - General Family Medicine 11/15/23 documented as of this encounter
--- OUTSIDE RECORDS SUMMARY | 2025-06-26 12:46 | XMS_ITS | Encounter Summary ---
Author Organization [employer] ([place], [place], [place], [place]) Address [address] [place] [address] Care Team Providers Care Wash Tank Tender Name Role Phone Tyrell Magana MD Primary Care Provider +1- [phone] Encounter Details Date Type Department Care Team (Late st Contact Info) Description 05/15/2021 Transcribed Document [facility] [place] Family Medicine Replaced by [facility] [place] [address] ProviderBen MD [address] [place] [address] 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 Tobacco Use Types [...] 1985 Associated Diagnoses: None Author: SIMIN STILES, URGENT CARE PHYSICIAN Chief Complaint R renal stone Review of [...] Facet Joint Syndrome, 0 Refill(s) Flonase: 1 [place], Nostrils Both, Daily, PRN: Allergies, 0 Refill(s) [...] 5 mg, PRN, Oral, BID Flonase 1 [place], PRN, Nostrils Both, Daily glycopyrrolate 1 mg [...] Problems Urinary tract infection / SNOMED CT 708719353 / Confirmed Sinusitis / SNOMED CT 90928664 / Confirmed Renal calculus / SNOMED CT 934241517 / Confirmed Migraine / SNOMED CT 26132968 / Confirmed Kidney stone / SNOMED CT 835625666 / Confirmed Insulin resistance / SNOMED CT 1796722413 / Confirmed High blood pressure / SNOMED CT 90050432 / Confirmed Facet joint syndrome / SNOMED CT 720648211 / Confirmed DDD (degenerative disc disease), lumbosacral / SNOMED CT 422176781 / Confirmed At risk for sleep apnea / IMO 26354910 / Confirmed, Active Problems (10) At risk [...] ureteral stent (eg, Mccormick or double-J type) (81991) on 10/10/2019 at 34 Years. kidney stone [...] EDT Height Source Measured Height Entry Format [place] Height/Length, CYMRO (ft) 0 ft Height/Length CYMRO 66 Inch CLINICALHEIGHT 167.64 cm [place] Body Weight 59 kg Weight Source Standing scale Weight Entry Format [place] Weight [place] lb 229 lb Weight Hungarian oz 8 oz CLINICALWEIGHT 104.32 kg Body [...] of motion, Normal strength. Integumentary: Warm, Dry, [place]. Neurologic: Alert, Oriented. Psychiatric: Cooperative, Appropriate mood [...] on filedocumented in this encounter Care Teams Wash Tank Tender Relationship Specialty Start Date End Date Tyrell Magana MD [address] [place] [address] PCP - General Family Medicine 11/15/23 documented as of this encounter
--- OUTSIDE RECORDS SUMMARY | 2025-06-26 12:46 | XMS_ITS | Encounter Summary ---
Author Organization [employer] ([place], [place], [place], [place]) Address [address] [place] [address] Care Team Providers Care Client Care Manager Name Role Phone Tyrell Magana MD Primary Care Provider +1- [phone] Encounter Details Date Type Department Care Team (Late st Contact Info) Description 05/15/2021 Transcribed Document [facility] [place] Family Medicine [facility] [place] [address] ProviderBen MD [address] [place] [address] 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 Tobacco Use Types [...] Ben ProviderMD - 05/15/2021 7:56 AM CDT [facility] Main OR PACU Summary Primary Physician: JOMAR JENKINS MD Finalized Date/Time: 05/15/21 09:30:35 Pt. Name: CELINE DC /Sex: 1985 Female Med Rec #: [id number] Physician: JOMAR JENKINS MD Financial #: [id number] Pt. Type: O Room/Bed: Admit/Disch: 05/15/21 06:21:00 - Institution: [facility] Main OR PACU I Case Times Entry 1 In PACU I 05/15/21 08:50:00 Ready for PACU 05/15/21 09:22:00 Discharge Discharge from PACU 05/15/21 09:22:00 I Last Modified By: Anjelica Cueto RN 05/15/21 09:29:46 Finalized By: Anjelica Cueto RN Document Signatures Signed By: Anjelica Cueto RN 05/15/21 09:30 Electronically signed by [facility] Conversion Drawbench Operator Cerner at 03/13/2023 7:21 PM CDT documented in this encounter Plan of Treatment Not on file documented as of this encounter Visit Diagnoses Not on filedocumented in this encounter Care Teams Client Care Manager Relationship Specialty Start Date End Date Tyrell Magana MD [address] [place] [address] PCP - General Family Medicine 11/15/23 documented as of this encounter
--- OUTSIDE RECORDS SUMMARY | 2025-06-26 12:46 | XMS_ITS | Encounter Summary ---
Author Organization [employer] ([place], [place], [place], [place]) Address [address] [place] [address] Care Team Providers Care Qa Intern Name Role Phone Tyrell Magana MD Primary Care Provider +1- [phone] Encounter Details Date Type Department Care Team (Late st Contact Info) Description 05/15/2021 Transcribed Document [facility] [place] [facility] [place] [address] ProviderBen MD [address] [place] [address] 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 Tobacco Use Types Packs/Day [...] Ben ProviderMD - 05/15/2021 7:56 AM CDT [facility] Main OR PostOp Summary Primary Physician: JOMAR JENKINS MD Finalized Date/Time: 05/15/21 10:50:17 Pt. Name: CELINE DC /Sex: 1985 Female Med Rec #: [id number] Physician: JOMAR JENKINS MD Financial #: [id number] Pt. Type: O Room/Bed: /11 Admit/Disch: 05/15/21 06:21:00 - Institution: [facility] Main OR PostOp Case Times Entry 1 In PACU II 05/15/21 09:25:00 Ready for PACU II 05/15/21 10:33:00 Discharge Discharge from PACU 05/15/21 10:33:00 II Last Modified By: ENIO DOS SANTOS RN 05/15/21 10:50:13 Finalized By: ENIO DOS SANTOS RN Document Signatures Signed By: ENIO DOS SANTOS RN 05/15/21 10:50 Electronically signed by [facility] Conversion Ecology Teacher Cerner at 03/13/2023 7:20 PM CDT documented in this encounter Plan of Treatment Not on file documented as of this encounter Visit Diagnoses Not on filedocumented in this encounter Care Teams Qa Intern Relationship Specialty Start Date End Date Tyrell Magana MD [address] [place] [address] PCP - General Family Medicine 11/15/23 documented as of this encounter
--- OUTSIDE RECORDS SUMMARY | 2025-06-26 12:46 | XMS_ITS | Encounter Summary ---
Author Organization [facility] Address [address] [place] [address] Care Team Providers Care Senior Internet Sales Consultant Name Role Phone Oriana Murcia Primary Care Provider Encounter Details Date Type Department Care Team (Late st Contact Info) Description 12/13/2024 Lab Requisition [facility] [address] [place] [address] Kiel Alexander MD [address] [place] [address] Localized swelling, mass and lump, unspecified Social [...] EST) Case Report Sugical Pathology Consult Case: [id number] Authorizing Provider: Kiel Alexander MD Collected: 12/13/2024 1326 Ordering Location: [facility] Received: 12/13/2024 1327 Pathologist: Gaviota Crooks MD Specimen: Soft Tissue, [id number] 12/13/2024 4:12 PM EST [facility] Final Diagnosis SOFT TISSUE, LEFT DORSAL WRIST MASS, EXCISION (OUTSIDE SLIDES, COLLECTED 12/27/24): - LYMPH NODE AND FIBROADIPOSE TISSUE WITH NO SIGNIFICANT PATHOLOGIC ABNORMALITY. - NEGATIVE FOR MALIGNANCY IN SAMPLED TISSUE. 12/13/2024 4:12 PM EST [facility] at 1612 EST Clinical Information R22.9 - Localized swelling, mass and lump, unspecified [ICD-10-CM] 12/13/2024 4:12 PM EST [facility] Gross Description A. [id number] Received along with a corresponding pathology report from [facility] are 6 slides and 1 block labeled outside case: [id number] collected on 11/23/2024. 12/13/2024 4:12 PM EST [facility] Note: A resident was involved in the service. I attest I examined the relevant preparations for the specimens and confirmed the diagnosis or interpretation. 12/13/2024 4:12 PM EST [facility] Tissue Soft tissue / Unknown 12/13/2024 1:26 PM EST 12/13/2024 1:27 PM EST us Kiel Alexander MD LAB PATHOLOGY ORDERABLES Final Result [facility] [address] [place] [address] documented in this encounter Visit Diagnoses Diagnosis Localized swelling, mass and lump, unspecified documented in this encounter Care Teams Senior Internet Sales Consultant Relationship Specialty Start Date End Date Oriana Mucria PA [address] [place] [address] PCP - General 04/10/21 documented as of this encounter
--- OUTSIDE RECORDS SUMMARY | 2025-06-26 12:47 | XMS_ITS | Clinical Summary ---
Author Organization [employer] ([place], [place], [place], [place]) Address [address] [place] [address] Care Team Providers Care Ethylene Plant Helper Name Role Phone Tyrell Magana MD Primary Care Provider +1- [phone] Allergies Active Allergy Reactions Criticality Noted Date [...] calcium,iron,min (MULTIVITAMIN-CALC IUM AND IRON ORAL) 10/29/20 23 Active pantoprazole (PROTONIX) 40 MG tablet Take 1 tablet (40 mg total) by mouth daily. Active potassium citrate (Urocit-K 15) 15 mEq TbER 10/29/20 23 Active propranoloL (Inderal LA) 60 MG 24 hr capsule 03/24/20 23 Active zafirlukast (Accolate) 20 MG tablet 12/02/20 23 Active DULoxetine (CYMBALTA) 30 MG capsule Take [...] daily for 14 days. 14 tablet 06/12/20 Active levocetirizine (Xyzal) 5 MG tablet 10/29/20 Discontinu ed(Stop Taking at Discharge) lisinopriL (PRINIVIL,ZESTRIL) 10 MG tablet Take 1 tablet (10 mg total) by mouth 3 (three) times daily. 10/29/20 Discontinu ed(Stop Taking at Discharge) norethindrone-ethi nyl estradiol-iron (June,) 1.5 mg-30 mcg (21)/75 mg (7) per tablet 10/29/20 Discontinu ed(Stop Taking at Discharge) rOPINIRole (REQUIP) 0.25 MG tabletIndications: restless leg syndrome Take 4 tablets (1 mg total) by mouth daily. 10/29/20 Discontinu ed(Stop Taking at Discharge) hydroCHLOROthiazid e [...] Daily Amount: 20 mg 20 tablet 06/12/20 25 025 ondansetron (ZOFRAN-ODT) 4 MG disintegrating tablet Take 1 tablet (4 mg total) by mouth every 4 (four) hours as needed for nausea or vomiting for up to 7 days. 20 tablet 06/12/20 25 025 Active Problems Problem Noted Date Diagnosed Date Diabetes mellitus, type 2 05/06/2025 Migraines 04/30/2025 RLS (restless legs syndrome) 04/30/2025 Morbid obesity 11/17/2023 HTN (hypertension) CON (obstructive sleep apnea) GERD (gastroesophageal reflux disease) PONV (postoperative nausea and vomiting) DDD (degenerative disc disease) Encounters Date Type Department Care Team Description 06/12/2025 9:32 AM EDT - 06/12/2025 11:19 AM EDT Surgery [facility] Operating Room [address] [place] [address] Vaibhav Chester MD (LEFT HIP ARTHROSCOPIC BURSECTOMY, POSSIBLE ABDUCTOR REPAIR) 06/12/2025 8:21 AM EDT Anesthesia Event [facility] Operating Room [address] [place] [address] Valeri Phillips MD [place], Kristen, CRNA 06/12/2025 6:34 AM EDT - 06/12/2025 11:27 AM EDT Hospital Encounter [facility] Operating Room [address] [place] [address] Vaibhav Chester MD Hip abductor tendinitis, left (Primary Dx) Discharge Disposition: Home or Self Care 06/12/2025 Travel 05/06/2025 12:59 PM EDT Anesthesia Event [facility] Surgery Department [address] [place] [address] Chery Gill CRNA [place], Philip Craig, MD 05/06/2025 12:00 PM EDT - 05/06/2025 1:52 PM EDT Surgery [facility] Surgery Department [address] [place] [address] Justice Miller MD Diagnostic LAPAROSCOPY, ENDOMETRIAL ABLATION 05/06/2025 9:19 AM EDT - 05/06/2025 3:19 PM EDT Hospital Encounter [facility] Surgery Department [address] [place] [address] Justice Miller MD Excessive or frequent menstruation; Encounter for gynecological examination with abnormal finding; Excessive, frequent and irregular menstruation; Secondary dysmenorrhea Discharge Disposition: Home or Self Care 05/06/2025 Travel 04/30/2025 3:54 PM EDT - 04/30/2025 11:59 PM EDT Hospital Encounter [facility] Diagnostic Imaging [address] [place] [address] Justice Miller MD Discharge Disposition: Home or Self Care 04/30/2025 2:38 PM EDT - 04/30/2025 3:53 PM EDT Hospital Encounter [facility] Preadmission Testing [address] [facility] [address] [place] [address] Justice Miller MD Pre-op testing (Primary Dx); [...] Date Surinder rded Speak language other than Vietnamese at home Not on file 12/16/2023 Want [...] 06/12/2025 6:00 AM EDT Plan of Treatment Health Maintenance Due [...] 08/28/2017 Tobacco Cessation Counseling and Screening (12+) 06/12/2026 06/12/2025 Medical Devices Implanted Type Area Grain Mill Products Inspector Device Identifier Shelf Expiration Date Model / Serial / Lot [place] Georg[place] 2.3mm [id number] - [id number] Implanted:Qty: 2 on 06/12/2025 by Vaibhav Chester MD at [facility] IMPLANTS Left: Hip TUNG:TUNG ENDOSCOPY 12/28/2029 [id number] / / [id number] [place] Peek Knotless Sp 4.75mm [id number] - [id number] Implanted:Qty: 1 on 06/12/2025 by Vaibhav Chester MD at [facility] IMPLANTS Left: Hip TUNG:TUNG ENDOSCOPY 02/01/2027 [id number] / / [id number] Procedures Procedure Name Priority Date/Time Associated Diagnosis Comments NOVA GLUCOSE POC Routine 06/12/2025 10:58 AM EDT NOVA GLUCOSE POC Routine 06/12/2025 9:49 AM EDT ANESTHESIA INTUBATION Routine 06/12/2025 8:33 AM EDT DC EXCISION TROCHANTERIC BURSA/CALCIFICATION 06/12/2025 8:21 AM EDT [...] ANESTHESIA INTUBATION Routine 05/06/2025 1:06 PM EDT DC HYSTEROSCOPY ENDOMETRIAL ABLATION 05/06/2025 12:58 PM EDT Excessive or frequent menstruation Encounter for gynecological examination with abnormal finding Excessive, frequent and irregular menstruation Secondary dysmenorrhea Case Notes This case needs to be Robotic per TEJAS Love DC LAPS ABD PRTM&OMENTUM DX W/WO SPEC BR/WA SPX 05/06/2025 12:58 PM EDT Excessive or frequent menstruation Encounter for gynecological examination with abnormal finding Excessive, frequent and irregular menstruation Secondary dysmenorrhea Case Notes This case needs to be Robotic [facility]/06/2025 XR CHEST PA AND LATERAL [...] - 110 mg/dL 06/12/2025 11:00 AM EDT [facility] Comment: In the event of poor peripheral blood flow, venous or arterial blood should be used due to the potential of erroneous results. Protocols Followed Veterinary Dentist [id number] 06/12/2025 11:00 AM EDT [facility] Blood WHOLE BLOOD / Unknown 06/12/2025 10:58 AM EDT 06/12/2025 11:00 AM EDT Narrative [facility] - 06/12/2025 11:00 AM EDT Veterinary Dentist ID is - [id number] us Vaibhav Chester MD POINT OF CARE TEST ORDERAB LES Final Result [facility] [address] [place] [address] * AN SINGLE LUMEN INTUBATION (06/12/2025 8:33 AM EDT) Narrative Santi Rock CRNA - 06/12/2025 8:33 AM EDT Santi [...] CYTOLOGY LABORATORY Comment: [facility] [address] [place] [address] or [phone] Heath Pruett M.D., Drive In Teller PATIENT NAME LABORATORY NO. 170CELINE JEFFERS. [id number] AGE SEX SSN CLIENT REF # [facility] 40 1985 F [id number] [address] REQUESTING MTobin [place] [address] JUSTICE MILLER DATE COLLECTED DATE RECEIVED DATE [...] by Ailyn Siddiqui M.D., F.C.A.P. at [employer], [facility], [address] [place] [address]. GROSS DESCRIPTION: Labeled endometrial curettings consists of multiple pieces of rocha-brown soft tissue measuring 3.0 x 2.5 x 0.6 cm in aggregate. Specimens are filtered and submitted entirely in 3 blocks. BKO REVIEWED, DIAGNOSED AND ELECTRONICALLY SIGNED BY: Ailyn Siddiqui M.D., F.C.A.P. CPT CODES: [id number] Tissue SPECIMEN FROM ENDOMETRIUM OBTAINED BY CURETTAGE / Unknown 05/06/2025 1:43 PM EDT Justice Miller MD PATHOLOGY/CYTOLOGY ORDERABLES Final Result [facility] [address] [place] [address] * AN SINGLE LUMEN INTUBATION (05/06/2025 1:06 [...] electronically signed by Nithin Matamoros MD Voice boiler out technology (Power Scribe) is used for the dictation of this note and sound-alike words might be erroneously placed despite reviewing this note for accuracy. Errors in dictation may reflect use of voice recognition software and not all errors in boiler out may have been detected prior to signing. [...] electronically signed by Nithin Matamoros MD Voice boiler out technology (Power Xiantibe) is used for the dictation of this note and sound-alike words might be erroneously placed despite reviewing this note for accuracy. Errors in dictation may reflect use of voice recognition software and not all errors in boiler out may have been detected prior to signing. us Justice Miller MD IMG DIAGNOSTIC IMAGING ORDERA BLES Final Result * Screen, urine (04/30/2025 3:08 PM EDT) Preg Test, Ur Negative Negative, Inconclusive 04/30/2025 3:26 PM EDT [facility] Urine 04/30/2025 3:08 PM EDT 04/30/2025 3:08 PM EDT us Justice Miller MD URINE ORDERABLES Final Result [facility] [address] [place], [place] [address] [phone] * CBC with automated diff (04/30/2025 3:07 PM EDT) WBC 9.2 3.9 - 10.0 K/ L 04/30/2025 3:22 PM EDT [facility] RBC 4.59 3.93 - 5.22 M/ L 04/30/2025 3:22 PM EDT [facility] Hemoglobin 13.7 11.2 - 15.7 GM/DL 04/30/2025 3:22 PM EDT [facility] Hematocrit 41.8 34.1 - 44.9 % 04/30/2025 3:22 PM EDT [facility] MCV 91 79 - 95 fL 04/30/2025 3:22 PM EDT [facility] MCH 29.8 25.6 - 32.2 pg 04/30/2025 3:22 PM EDT [facility] MCHC 32.8 32.2 - 36.5 GM/DL 04/30/2025 3:22 PM EDT [facility] RDW 14.3 11.6 - 14.4 % 04/30/2025 3:22 PM EDT [facility] Platelets 345 163 - 369 K/CU MM 04/30/2025 3:22 PM EDT [facility] MPV 9.4 9.4 - 12.4 fL 04/30/2025 3:22 PM EDT [facility] % Neutros 52 34 - 71 % 04/30/2025 3:22 PM EDT [facility] % Lymphs 37 19 - 53 % 04/30/2025 3:22 PM EDT [facility] % Monos 8 4 - 13 % 04/30/2025 3:22 PM EDT [facility] % Eos 2 1 - 7 % 04/30/2025 3:22 PM EDT [facility] % Baso 0 0 - 1 % 04/30/2025 3:22 PM EDT [facility] # Neutros 4.80 1.56 - 6.13 K/ L 04/30/2025 3:22 PM EDT [facility] # Lymphs 3.39 1.18 - 3.74 K/ L 04/30/2025 3:22 PM EDT [facility] # Monos 0.71 0.24 - 0.82 K/ L 04/30/2025 3:22 PM EDT [facility] # Eos 0.20 0.04 - 0.54 K/ L 04/30/2025 3:22 PM EDT [facility] # Baso 0.04 0.01 - 0.08 K/ L 04/30/2025 3:22 PM EDT [facility] Immature Granulocytes-Re lative 0.40 0.00 - 0.60 % 04/30/2025 3:22 PM EDT [facility] # IG 0.04 0.00 - 0.05 K/uL 04/30/2025 3:22 PM EDT [facility] Blood Venipuncture / Unknown 04/30/2025 3:07 PM EDT 04/30/2025 3:07 PM EDT Narrative [facility] - 04/30/2025 3:22 PM EDT [...] MD LAB BLOOD ORDERABLES Final Re sult [facility] [address] [phone] * (ABNORMAL) Comprehensive metabolic panel (04/30/2025 3:07 PM EDT) Sodium 138 136 - 146 meq/L 04/30/2025 3:32 PM EDT [facility] Potassium 3.9 3.5 - 5.1 meq/L 04/30/2025 3:32 PM EDT [facility] Chloride 102 102 - 112 meq/L 04/30/2025 3:32 PM EDT [facility] CO2 28 21 - 32 meq/L 04/30/2025 3:32 PM EDT [facility] Calcium 9.6 8.5 - 10.1 mg/dL 04/30/2025 3:32 PM EDT [facility] Glucose 105 74 - 106 mg/dL 04/30/2025 3:32 PM [facility] BUN 11 7 - 22 mg/dL 04/30/2025 3:32 PM T [facility] Creatinine 0.85 0.55 - 1.02 mg/dL 04/30/2025 3:32 PM [facility] BUN/Creatinine 13 8 - 20 04/30/2025 3:32 PM T [facility] Albumin 3.5 3.4 - 5.0 g/dL 04/30/2025 3:32 PM [facility] Alkaline Phosphatase 50 27 - 136 U/L 04/30/2025 3:32 PM T [facility] ALT 54 12 - 78 U/L 04/30/2025 3:32 PM T [facility] AST 46(H) 5 - 37 [...] PM EDT 04/30/2025 3:07 PM EDT us Justice Miller MD LAB BLOOD ORDERABLES Final Re sult [facility] [address] [place] [id number] [phone] * ECG 12 lead (04/30/2025 1:59 PM EDT) VENTRICULAR RATE EKG/MIN 82 BPM GE MUSE ATRIAL RATE (MCT) 82 BPM GE MUSE DC Interval 170 ms GE MUSE QRS-INTERVAL (MSEC) 92 ms GE MUSE QT Interval 354 ms GE MUSE QTC Interval 413 ms GE MUSE P [place] 55 degrees GE MUSE R AXIS (MCT) 69 degrees GE MUSE T Wave [place] 65 degrees GE MUSE [place] Diagnosis Normal sinus rhythm Normal ECG Confirmed by Gustavo FITZGERALD SUZANNE ([id number]) on 04/30/2025 4:57:51 PM GE MUSE 04/30/2025 1:59 PM EDT 04/30/2025 4:57 PM EDT Justice Miller MD ECG ORDERABLES Final Result GE MUSE from Last 3 Months Insurance BLUE CROSS/BLUE SHIELD Advance Directives For more information, please contact: [phone] * Full Code (Latest Code Status on File) Date Activated Date Inactivated Comments 06/12/2025 6:02 AM 06/12/2025 12:28 PM * Full Code Date Activated Date Inactivated Comments 11/17/2023 11:34 AM 11/17/2023 6:14 PM Care Teams Ethylene Plant Helper Relationship Specialty Start Date End Date Tyrell Magana MD [address] [place] [address] [place] [id number] PCP - General Family Medicine 11/15/23
--- NOTE | 2025-06-26 13:00 | MM_ITS ---
PROCEDURE INFORMATION: Exam: MG Bilateral Screening 3D Mammography Exam date and time: 06/26/2025 1:03 PM Age: 40 years old Clinical indication: Screening exam. TECHNIQUE: Imaging protocol: Bilateral Screening tomosynthesis and 2D mammography including computer-aided detection (CAD) when performed. COMPARISON: MG MM DIG SCREENING MAMM BI W/CAD 06/13/2024 9:20 AM FINDINGS: MAMMOGRAPHY: Breast composition: There are scattered areas of fibroglandular density. Mass: No suspicious masses. Architectural distortion: None. Calcifications: No suspicious calcifications. Asymmetric density: None. Skin thickening: None. Axillary adenopathy: None. IMPRESSION: No mammographic evidence of malignancy. Annual screening is recommended unless otherwise clinically indicated. ASSESSMENT: BI-RADS Category 1: Negative.
== END 2025-06-26 23:59 | disposition home or self-care (01) ==
LOC: RAD 12:42
PROVIDERS: PCP Nurse Practitioner Family; Visit Provider Nurse Practitioner Family
DX: Z12.31 Encounter for screening mammogram for malignant neoplasm of breast (principal); R92.323 Mammographic fibroglandular density, bilateral breasts
CPT/HCPCS: 77063; 77067

== ENCOUNTER 2025-06-27 15:30 | Outpatient (RCR) | payer BC, SELFPAY | END 2025-06-27 23:59 | disposition home or self-care (01) | LOC: PT.CARL 15:30 | PROVIDERS: PCP Nurse Practitioner Family; Visit Provider Orthopaedic Surgery | DX: M70.62 Trochanteric bursitis, left hip (principal) | CPT/HCPCS: 97032; 97035; 97110; 97161 ==

== ENCOUNTER 2025-07-25 16:00 | Outpatient (RCR) | payer BC, SELFPAY | END 2025-07-25 23:59 | disposition home or self-care (01) | LOC: PT.CARL 16:00 | PROVIDERS: PCP Nurse Practitioner Family; Visit Provider Orthopaedic Surgery | DX: M72.2 Plantar fascial fibromatosis (principal) | CPT/HCPCS: 97014; 97032; 97035; 97110; 97140; 97164; 97530; G0283 ==

== ENCOUNTER 2025-08-01 11:27 | Outpatient (CLI) | payer BC, SELFPAY ==
--- OUTSIDE RECORDS SUMMARY | 2025-06-06 10:30 | XMS_ITS | Encounter Summary ---
Author Organization [facility] Address [address] [place] [address] Care Team Providers Care Division Human Resources Manager Name Role Phone Tyrell Magana MD Primary Care Provider +1- [phone] Reason for Referral * Durable Medical Equipment (Routine) - Authorized Specialty Diagnoses / Procedures Referred By Contac t Referred To Contact Diagnoses CON (obstructive sleep apnea) Procedures PAP Therapy Coreen Devi APRN [address] [place] [address] Phone: tel: fax: [facility] [address] [place] [address] Phone: tel: fax: Referral ID Status Reason Start Date Expiration Date V isits Requested Visits Authorized [id number] Authorized 06/06/2025 09/05/2026 1 1 Reason for Visit * Reason Comments Sleep Apnea Follow-up Encounter Details Date Type Department Care Team (Late st Contact Info) Description 06/06/2025 10:30 AM EDT Office Visit [facility] [address] [place] [address] Coreen Devi APRN [address] [place], [place] [id number] CON (obstructive sleep apnea) (Primary Dx) Social [...] and social history reviewed and updated in [place] as appropriate. Past 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: Diagnosis Date Allergic Hypertension Kidney stone Migraines Type 2 diabetes mellitus Past Surgical History: Procedure Laterality Date EXTRACORPOREAL SHOCK WAVE LITHOTRIPSY (ESWL) Bilateral 04/30/2022 Procedure: EXTRACORPOREAL SHOCKWAVE LITHOTRIPSY BILATERAL; Surgeon: Lincoln Dey MD; Location: [facility]; Service: Urology; Laterality: Bilateral; KIDNEY [...] spray fluticasone propionate 50 mcg/actuation nasal spray,suspension [place] 1 spray every day by intranasal route. [...] Description 06/05/2026 10:30 AM EDT Office Visit [facility] [address] [address] Coreen Devi APRN [address] [place] [address] documented as of this encounter Visit Diagnoses Diagnosis CON (obstructive sleep apnea)- Primary Obstructive sleep apnea (adult) (pediatric) documented in this encounter Care Teams Division Human Resources Manager Relationship Specialty Start Date End Date Tyrell Magana MD [address] [place] [address] PCP - General Family Medicine 06/03/23 documented as of this encounter
--- OUTSIDE RECORDS SUMMARY | 2025-06-12 06:34 | XMS_ITS | Encounter Summary ---
Author Organization [employer] ([place], [place], [place], [place]) Address [address] [place] [address] Care Team Providers Care Material Mixer Name Role Phone Tyrell Magana MD Primary Care Provider [phone] Reason for Visit * Auth/Cert (Routine) Specialty Diagnoses / Procedures Referred By Bao bautista Referred To Contact Diagnoses Trochanteric bursitis, left hip SEE PRIMARY DX Procedures WA EXCISION TROCHANTERIC BURSA/CALCIFICATION BURSECTOMY, HIP [facility] Operating [address] [place] [address] Phone: tel: fax: [facility] Operating [address] [place] [address] Phone: tel: fax: Referral ID Status Reason Start Date Expiration Date Visits Re quested Visits Authorized [id number] 1 1 Encounter Details Date Type Department Care Team (Latest Contact Info) Description 06/12/2025 6:34 AM EDT - 06/12/2025 11:27 AM EDT Hospital Encounter [facility] Operating [address] [place] [address] Vaibhav Chester MD [address] [place] [address] Hip abductor tendinitis, left (Primary Dx) Discharge Disposition: Home or Self Care Social [...] Date Surinder rded Speak language other than Samoan at home Not on file 12/16/2023 Want [...] Sign Reading Time Taken Comments Blood Pressure 114/79 06/12/2025 10:55 AM EDT Pulse 75 06/12/2025 10:55 AM EDT Temperature 36.4 C (97.5 F) 06/12/2025 10:55 AM EDT Respiratory Rate 18 06/12/2025 10:5 5 AM EDT Oxygen Saturation 95% 06/12/2025 10: 55 AM EDT Inhaled Oxygen Concentration - - Weight 123.1 kg (271 lb 6.4 oz) 06/12/2025 6:00 AM EDT Height 167.6 cm (5' 6 ) 06/12/2025 6:00 AM EDT Body Mass Index 43.81 06/12/2025 6:00 AM EDT documented in this encounter Discharge Instructions * Attachments The following attachments cannot be sent through Care Everywhere. * Hip Arthroscopy Care After (Samoan) * General Anesthesia Adult Care After (Samoan) documented in this encounter Medications at Time [...] daily. glycopyrrolate (RobinuL) 1 mg tablet 10/29/2023 lisinopriL (ZESTRIL) 40 MG tablet Take 1 tablet (40 mg total) by mouth daily. meloxicam (MOBIC) 7.5 MG tablet TAKE 1 TABLET BY MOUTH EVERY DAY FOR ARTHRITIS 10/29/2023 metFORMIN (GLUCOPHAGE) 500 MG tablet Missing or Non-Formulary Medication PROBIOTIC. multivit with calcium,iron,min (MULTIVITAMIN-CALCI UM AND IRON ORAL) 10/29/2023 pantoprazole (PROTONIX) 40 MG tablet Take 1 tablet (40 mg total) by mouth daily. potassium citrate (Urocit-K 15) 15 mEq TbER 10/29/2023 pregabalin (LYRICA) 75 MG capsule Take 1 capsule (75 mg total) by mouth 3 (three) times daily. propranoloL (Inderal LA) 60 MG 24 hr capsule 03/24/2023 rOPINIRole (REQUIP) 1 MG tablet Take 1 tablet (1 mg total) by mouth daily. zafirlukast (Accolate) 20 MG tablet 10/29/2023 aspirin 81 MG EC tablet Take 1 tablet (81 mg total) by mouth daily for 14 days. 14 tablet 06/12/2025 5 ondansetron (ZOFRAN-ODT) 4 MG disintegrating tablet Take 1 tablet (4 mg total) by mouth every 4 (four) hours as needed for nausea or vomiting for up to 7 days. 20 tablet 06/12/2025 5 oxyCODONE (ROXICODONE) 5 MG immediate release tablet Take 1 tablet (5 mg total) by mouth every 6 (six) hours as needed for pain for up to 10 days Look-alike/So und-alike medication. Max Daily Amount: 20 mg 20 tablet 06/12/2025 documented as of this encounter H&P Notes * Asha Maciel PA-C - 06/12/2025 8:13 AM EDT H&P History Of Present Illness Celine Dc is a 40 y.o. female Celine Dc with pertinent PMH of HTN, DM II, CON, GERD and trochanteric bursitis of left hip with hip abduction weakness and tight IT band. MRI results reveal partial tear of abductors. Patient has been conservatively managed but continues to have pain which is negatively impacting activities of daily living. This morning the patient denies any acute issues. No f/c/s. No cp, soa. Patient was evaluated by Dr. Chester and presents today for an elective left hip arthroscopic bursectomy, possible abductor repair. Past 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 She has a past medical history of Allergies, Anxiety, DDD (degenerative disc disease), Facet joint disease, History of left thyroidectomy, HTN (hypertension), Hyperhidrosis, Insulin resistance, Kidney stones, Migraines, CON (obstructive sleep apnea), and PONV (postoperative nausea and vomiting). Surgical History She has a past surgical history that includes lithotripsy,extracorporeal shock wave (eswl) (Bilateral, 11/17/2023); Kidney stone surgery; [place] tooth extraction; Sinus surgery; Colon surgery; LEFT WRIST SURGERY (Left); LAPAROSCOPY,DIAGNOSTIC (N/A, 05/06/2025); and HYSTEROSCOPY,ENDOMETRIAL ABLATION (). 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 She reports that she has never smoked. She has never used smokeless tobacco. She reports that she does not currently use alcohol. She reports that she does not use drugs. Family History Her family history is not on file. Allergies Penicillin and Cephalexin Medications Current Outpatient Medications Medication Instructions busPIRone (BUSPAR) 7.5 MG tablet 1 tablet, 2 times daily cetirizine (ZYRTEC) 10 mg, Daily cholecalciferol (VITAMIN D3) 5,000 Units, Daily DULoxetine (CYMBALTA) 30 mg, Daily famotidine (PEPCID) 40 MG tablet 1 tablet, Daily fluticasone propionate (FLONASE) 50 mcg/actuation nasal spray 1 spray, Daily glycopyrrolate (RobinuL) 1 mg tablet No dose, route, or frequency recorded. hydroCHLOROthiazide (MICROZIDE) 12.5 mg, Daily levocetirizine (Xyzal) 5 MG tablet No dose, route, or frequency recorded. lisinopriL (PRINIVIL,ZESTRIL) 10 MG tablet 1 tablet, 3 times daily lisinopriL (ZESTRIL) 40 MG tablet 1 tablet, Daily meloxicam (MOBIC) 7.5 MG tablet TAKE 1 TABLET BY MOUTH EVERY DAY FOR ARTHRITIS metFORMIN (GLUCOPHAGE) 500 MG tablet No dose, route, or frequency recorded. Missing or Non-Formulary Medication PROBIOTIC. multivit with calcium,iron,min (MULTIVITAMIN-CALCIUM AND IRON ORAL) No dose, route, or frequency recorded. norethindrone-ethinyl estradiol-iron (Junel FE 1.5/30, 28,) 1.5 mg-30 mcg (21)/75 mg (7) per tabletNo dose, route, or frequency recorded. pantoprazole (PROTONIX) 40 MG tablet 1 tablet, Daily potassium citrate (Urocit-K 15) 15 mEq TbER No dose, route, or frequency recorded. pregabalin (LYRICA) 75 mg, 3 times daily propranoloL (Inderal LA) 60 MG 24 hr capsule No dose, route, or frequency recorded. rOPINIRole (REQUIP) 1 mg, Daily rOPINIRole (REQUIP) 1 mg, Daily zafirlukast (Accolate) 20 MG tablet No dose, route, or frequency recorded. Review of Systems 14 point ROS completed and non-contributory except as listed above Physical Exam Blood pressure (!) 172/88, pulse 86, temperature 97.5 ??F (36.4 ??C), resp. rate (!) 96, height 1.676 m (5' 6 ), weight 123.1 kg (271 lb 6.4 oz), SpO2 98%. GEN: Alert, awake, NAD, obese HEENT: NCAT, no icterus, no thrush, nares patent, CV: S1S2, no murmur. No LE edema Resp: CTAB, NL Abd: Soft, NT, ND +BS Skin: no rashes on inspection and palpation. Ext: No LE edema. No joint edema, erythema. Neuro: A&O x 3, CN grossly intact Diagnostic Results Admission on 06/12/2025 Component Date Value Ref Range Status POC, URINE HCG 06/12/2025 Negative Negative Final INTERNAL QC (VALID/INVALID) 06/12/2025 Valid Final Kit Lot Number 06/12/2025 [id number] Final Expiration Date 06/12/2025 12-06-26 Final POC-GLUCOSE 06/12/2025 127 (H) 70 - 110 mg/dL Final Chuck Boner 06/12/2025 [id number] Final X-ray chest PA and lateral Narrative: TWO-VIEW [...] electronically signed by Nithin Matamoros MD Voice shipyard painter helper technology (Power Scribe) is used for the dictation of this note and sound-alike words might be erroneously placed despite reviewing this note for accuracy. Errors in dictation may reflect use of voice recognition software and not all errors in shipyard painter helper may have been detected prior to signing. Assessment & Plan Trochanteric bursitis, left hip -to OR for scheduled procedure CON, CPAP HTN GERD DM II Obesity Migraines RLS Anxiety PONV documented in this encounter OR Notes * Op Note - Vaibhav Chester MD - 06/12/2025 9:43 AM EDT Date: 06/12/2025 Surgeon: Conor Chester M.D. Assistants: Inderjit Ovidio, C.S.A. The engineer first assistant was necessary for positioning, draping, retraction, drilling while I held the guide, and wound closure. The costumer assistant allowed the procedure be completed in a safe and efficient manner. Preoperative Diagnosis: 1. Left hip trochanteric bursitis 2. Left hip gluteal tendon partial tear Postoperative Diagnoses: 1. Left hip trochanteric bursitis 2. Left hip gluteal tendon partial tear Procedures: 1. Left hip arthroscopic trochanteric bursectomy 2. Left hip arthroscopic gluteal tendon tear Anesthesia: General Antibiotics: Ancef 2g Specimens: None Complications: None Fluids: 1 L Estimated Blood Loss: 10 ml Implants: [employer] Iconix x2, Alphavent Indications for Procedure: Mr.s Dc is a 40 yo female with recalcitrant lateral left hip pain. She previously had steroid injections and physical therapy without improvement. On exam, her pain localized to the greater trochanter with weak hip abduction. Given her persistent pain despite conservat carlos measures, we discussed surgical intervention. The indications, alternatives, risks and benefitswere fully discussed. Description of Procedure: The patient was met in the preoperative holding area, operative extremitymarked, and all questions were answered. The patient was brought back to the operating room and induced under general anesthesia without complication. The patient was appropriately positioned with all bony prominences confirmed to be well-padded. The operative extremity was prepped and draped in usual sterile orthopedic fashion. A surgical timeout was performed confirming correct patient, site, and procedure. Two lateral portals were created. The IT band was split in line with crucifix lengthening. The bursa above and below the trochanter was excised completely using a shaver. The gluteal tendon was partially detached at the anterior corner of the trochanter. It was mobilized and debrided. In trans-tendon fashion, two anchors were placed anterior and posterior to the tear. The repair sutures were passed through opposite anchors and tightened securing the tendon. The sutures were then ron sdistally into an AlphaVent anchor creating more distal compression of the tendon. This provided excellent coverage of the greater trochanter and and the repair was confirmed secure on rotation of the hip. The wound was irrigated. Wound was closed with 3-0 Nylon. A sterile dressing was applied. All counts were correct. The patient was woken from anesthesia without complication and taken to the PACU in stable condition. Post-Op Plan: The patient will be partial weightbearing on the left lower extremity with crutches for assistance for 2 weeks then advance to full. Aspirin DVT prophylaxis. Begin physical therapy in 1week. Follow-up 2 weeks. documented in this encounter Plan of Treatment Not on file documented as of this encounter Procedures Procedure Name Priority Date/Time Associated Diagnosis Comments NOVA GLUCOSE POC Routine 06/12/2025 10:5 8 AM EDT NOVA GLUCOSE POC Routine 06/12/2025 9:49 AM EDT WA EXCISION TROCHANTERIC BURSA/CALCIFICATION 06/12/2025 8:21 AM EDT Trochanteric bursitis, left hip Case Notes IN 0630, 1h (R), ARTHREX, REGULAR OR TABLE NOVA GLUCOSE POC Routine 06/12/2025 7:21 AM EDT FS_MODEL_IP POCT , URINE Routine 06/12/2025 7:07 AM EDT documented in this encounter Results * (ABNORMAL) Glucose, Nova Meter (06/12/2025 10:58 AM EDT) POC-GLUCOSE 144(H) 70 - 110 mg/dL 06/12/2025 11:00 AM EDT [facility] Comment: In the event of poor peripheral blood flow, venous or arterial blood should be used due to the potential of erroneous results. Protocols Followed Chuck Boner [id number] 06/12/2025 11:00 AM EDT [facility] Blood WHOLE BLOOD / Unknown 06/12/2025 10:58 AM EDT 06/12/2025 11:00 AM EDT Narrative [facility] - 06/12/2025 11:00 AM EDT Chuck Boner ID is - [id number] us Vaibhav Chester MD POINT OF CARE TEST ORDERAB LES Final Result [facility] [address] [phone] * (ABNORMAL) Glucose, Nova Meter (06/12/2025 9:49 AM EDT) POC-GLUCOSE 140(H) 70 - 110 mg/dL 06/12/2025 9:50 AM EDT [facility] Comment: In the event of poor peripheral blood flow, venous or arterial blood should be used due to the potential of erroneous results. Notified Nurse RBV Chuck Boner [id number] 06/12/2025 9:50 AM EDT [facility] Blood WHOLE BLOOD / Unknown 06/12/2025 9:49 AM EDT 06/12/2025 9:50 AM EDT Narrative [facility] - 06/12/2025 9:50 AM EDT Chuck Boner ID is - [id number] us Vaibhav Chester MD POINT OF CARE TEST ORDERAB LES Final Result Performing Organization Address [facility] Co de Phone Number [facility] [address] [phone] * (ABNORMAL) Glucose, Nova Meter (06/12/2025 7:21 AM EDT) POC-GLUCOSE 127(H) 70 - 110 mg/dL 06/12/2025 7:23 AM EDT [facility] Comment: In the event of poor peripheral blood flow, venous or arterial blood should be used due to the potential of erroneous results. Notified Nurse RBV Chuck Boner [id number] 06/12/2025 7:23 AM EDT [facility] Blood WHOLE BLOOD / Unknown 06/12/2025 7:21 AM EDT 06/12/2025 7:23 AM EDT Narrative [facility] - 06/12/2025 7:23 AM EDT Chuck Boner ID is - [id number] us Vaibhav Chester MD POINT OF CARE TEST ORDERAB LES Final Result Performing Organization Address [facility]/ZIP Co de Phone Number [facility] [address] [phone] * POCT , urine (06/12/2025 7:07 AM EDT) POC, URINE HCG Negative Negative INTERNAL QC (VALID/INVALID) Valid Kit Lot Number [id number] Expiration Date 12-06-26 06/12/2025 7:07 AM EDT Valeri Phillips MD FS_MODEL_IP_POINT OF CARE TEST ENTER/EDIT ORDERABLES Final Result documented in this encounter Visit Diagnoses Diagnosis Hip abductor tendinitis, left- Primary PONV (postoperative nausea and vomiting) Nausea with vomiting DDD (degenerative disc disease) Degeneration of cervical intervertebral disc documented in this encounter Administered Medications Inactive Administered Medications - up to 3 most recent administrations Medication Order MAR Action Action Date Dose Rate Site acetaminophen (TYLENOL) tablet 1,000 mg 1,000 mg Once, oral, On Tue06/12/25 at 0730, For 1 dose, Give 2 hours prior to procedure, Pre-op Given 06/12/2025 7:19 AM EDT 1,000 mg fentaNYL PF (SUBLIMAZE) injection 25 mcg 25 mcg Every 5 min PRN, intravenous, First Line for pain moderate or greater, Starting on Tue06/12/25 at 0931, Maximum cumulative dose 100 mcg. If maximum dose is reached, proceed to 2nd Line agent., PACU hydrALAZINE (APRESOLINE) injection 10 mg 10 mg Once as needed, intravenous, high blood pressure (specify), SBP greater than 160, Starting on Tue06/12/25 at 0931, For 1 dose, Hold if SBP less than 140 mmHg, DBP less than 70 mmHg, or patient is on pressor. Look-alike/Sound-alike medication, PACU HYDROmorphone (DILAUDID) injection 0.5 mg 0.5 mg Every 10 min PRN, intravenous, severe pain (7-10), 2nd Line agent after max dose Fentanyl given if ordered., Starting on Tue06/12/25 at 0931, For 4 doses, Maximum cumulative dose 2 mg, PACU, PACU labetaloL (TRANDATE, NORMODYNE) injection 5 mg 5 mg Every 5 min PRN, intravenous, hypertension (sbp greater than 140), Starting on Tue06/12/25 at 0931, For 4 doses, Hold if SBP less than 140 mmHg, DBP less than 70 mmHg, or HR less than 60 bpm, PACU lactated Ringer's infusion 100 mL/hr Continuous, intravenous, Starting on Tue06/12/25 at 0730, Pre-op New Bag 06/12/2025 9:33 AM EDT 100 mL/ hr Continued by Anesthesia 06/12/2025 8:21 AM EDT 100 mL/hr New Bag 06/12/2025 7:22 AM EDT 100 mL/hr 100 mL/hr ondansetron (ZOFRAN) injection 4 mg 4 mg Once as needed, intravenous, nausea, vomiting, Starting on Tue06/12/25 at 0702, For 1 dose, For IV push, give over 2 - 5 minutes., Pre-op ondansetron (ZOFRAN) injection 4 mg 4 mg Every 15 min PRN, intravenous, nausea, Starting on Tue06/12/25 at 0931, For 2 doses, 1st line for nausea For IV push, give over 2 - 5 minutes., PACU Given 06/12/2025 10:11 AM EDT 4 mg oxyCODONE (ROXICODONE) immediate release tablet 5 mg 5 mg Once as needed, oral, moderate pain (4-6), severe pain (7-10), For patients going home if they have not received hydromorphone or morphine., Starting on Tue06/12/25 at 0931, For 1 dose, Look-alike/Sound-alike medication, PACU Given 06/12/2025 10:11 AM EDT 5 mg promethazine (PHENERGAN) 6.25 mg in sodium chloride 0.9 % (NS) 50 mL IVPB (Immediate Use Only) 6.25 mg Every 15 min PRN, intravenous, at 150 mL/hr, nausea, Starting on Tue06/12/25 at 0931, For 2 doses, 2nd line for nausea. Dilute in 10 mL NS and administer over 5 minutes , PACU scopolamine (TRANSDERM-SCOP) patch 1 mg/72 hr 1.5 mg Once (1 patch), transdermal (scopolamine), Administer over 72 Hours, On Tue06/12/25 at 0730, For 1 dose, Pre-op Given 06/12/2025 8:21 AM EDT 1 pa tch Patch Applied 06/12/2025 7:19 AM EDT 1.5 mg Behind Right Ear sodium chloride flush 10 mL 10 mL As needed, intravenous, line care, Starting on Tue06/12/25 at 0702, Every 8 hours and PRN to flush, Pre-op documented in this encounter Active and Recently Administered Medications Times are shown in EDT. Scheduled Medication Order 06/10/2025 06/11/2025 06/12/2025 acetaminophen (TYLENOL) tablet 1,000 mg (COMPLETED) 1,000 mg Once, oral, On Tue06/12/25 at 0730, For 1 dose, Give 2 hours prior to procedure, Pre-op 0719 (Given - Provid er: Emerald Sarkar RN) clindamycin (CLEOCIN) IVPB 900 mg in dextrose 5 % 50 mL (premix) (COMPLETED) 900 mg Once, intravenous, Administer over 60 Minutes, On Tue06/12/25 at 0730, For 1 dose, Administer within 60 minutes of incision., Pre-op, Please choose an indication: Surgical Prophylaxis 0835 (Given - Provid er: Santi Rock CRNA) scopolamine (TRANSDERM-SCOP) patch 1 mg/72 hr (COMPLETED) 1.5 mg Once (1 patch), transdermal (scopolamine), Administer over 72 Hours, On Tue06/12/25 at 0730, For 1 dose, Pre-op 0719 (Patch Applied - Provider: Emerald Sarkar RN)0821 (Given - Provider: Santi Rock CRNA - Comment: continued from preop.) tranexamic acid topical syringe 1,000 mg (COMPLETED) 1,000 mg Once, intra-articular, On Tue06/12/25 at 0730, For 1 dose, Administer immediately preop for surgical prophylaxis: Orthopedic, Pre-op 0835 (Given - Provid er: Santi Rock CRNA - Comment: slow IVP over 10 min)0949 (Anesthesia Volume Adjustment - Provider: Santi Rock CRNA) Continuous Medication Order 06/10/2025 06/11/2025 06/12/2025 lactated Ringer's infusion 100 mL/hr Continuous, intravenous, Starting on Tue06/12/25 at 0730, Pre-op 0722 (New Bag - Prov ider: Emerald Sarkar RN)0821 (Continued by Anesthesia - Provider: Santi Rock CRNA)0933 (New Bag - Provider: Santi Rock CRNA)0948 (Anesthesia Volume Adjustment - Provider: Santi Rock CRNA) PRN Medication Order 06/10/2025 06/11/2025 06/12/2025 BUPivacaine (PF) (MARCAINE) injection As needed, Starting on Tue06/12/25 at 0920, Intra-op 0920 (Given - Provid er: Vaibhav Chester MD - Comment: Local anesthetic - left hip) fentaNYL PF (SUBLIMAZE) injection 25 mcg 25 mcg Every 5 min PRN, intravenous, First Line for pain moderate or greater, Starting on Tue06/12/25 at 0931, Maximum cumulative dose 100 mcg. If maximum dose is reached, proceed to 2nd Line agent., PACU hydrALAZINE (APRESOLINE) injection 10 mg 10 mg Once as needed, intravenous, high blood pressure (specify), SBP greater than 160, Starting on Tue06/12/25 at 0931, For 1 dose, Hold if SBP less than 140 mmHg, DBP less than 70 mmHg, or patient is on pressor. Look-alike/Sound-alike medication, PACU HYDROmorphone (DILAUDID) injection 0.5 mg 0.5 mg Every 10 min PRN, intravenous, severe pain (7-10), 2nd Line agent after max dose Fentanyl given if ordered., Starting on Tue06/12/25 at 0931, For 4 doses, Maximum cumulative dose 2 mg, PACU, PACU labetaloL (TRANDATE, NORMODYNE) injection 5 mg 5 mg Every 5 min PRN, intravenous, hypertension (sbp greater than 140), Starting on Tue06/12/25 at 0931, For 4 doses, Hold if SBP less than 140 mmHg, DBP less than 70 mmHg, or HR less than 60 bpm, PACU ondansetron (ZOFRAN) injection 4 mg 4 mg Once as needed, intravenous, nausea, vomiting, Starting on Tue06/12/25 at 0702, For 1 dose, For IV push, give over 2 - 5 minutes., Pre-op ondansetron (ZOFRAN) injection 4 mg 4 mg Every 15 min PRN, intravenous, nausea, Starting on Tue06/12/25 at 0931, For 2 doses, 1st line for nausea For IV push, give over 2 - 5 minutes., PACU 1011 (Given - Provid er: Maia Arredondo, RN) oxyCODONE (ROXICODONE) immediate release tablet 5 mg (COMPLETED) 5 mg Once as needed, oral, moderate pain (4-6), severe pain (7-10), For patients going home if they have not received hydromorphone or morphine., Starting on Tue06/12/25 at 0931, For 1 dose, Look-alike/Sound-alike medication, PACU 1011 (Given - Provid er: Maia Arredondo RN) promethazine (PHENERGAN) 6.25 mg in sodium chloride 0.9 % (NS) 50 mL IVPB (Immediate Use Only) 6.25 mg Every 15 min PRN, intravenous, at 150 mL/hr, nausea, Starting on Tue06/12/25 at 0931, For 2 doses, 2nd line for nausea. Dilute in 10 mL NS and administer over 5 minutes , PACU sodium chloride flush 10 mL(Linked Group 1) 10 mL As needed, intravenous, line care, Starting on Tue06/12/25 at 0702, Every 8 hours and PRN to flush, Pre-op Linked Groups Order Group 1: Insert Peripheral IV (CANCELED) STAT, Once, On Tue06/12/25 at 0703, For 1 occurrence, Pre-op And Saline Lock IV (CANCELED) Routine, Once, On Tue06/12/25 at 0703, For 1 occurrence, Pre-op And sodium chloride flush 10 mLJump to med 10 mL As needed, intravenous, line care, Starting on Tue06/12/25 at 0702, Every 8 hours and PRN to flush, Pre-op documented in this encounter Care Teams Material Mixer Relationship Specialty Start Date End Date Tyrell Magana MD [address] [place] [id number] PCP - General Family Medicine 11/15/23 documented as of this encounter
--- OUTSIDE RECORDS SUMMARY | 2025-06-12 08:21 | XMS_ITS | Encounter Summary ---
Author Organization [employer] ([place], [place], [place], [place]) Address [address] [place] [address] Care Team Providers Care Sand Technician Name Role Phone Tyrell Magana MD Primary Care Provider [phone]- [phone] Reason for Visit * Auth/Cert (Routine) Specialty Diagnoses / Procedures Referred By Bao bautista Referred To Contact Diagnoses Trochanteric bursitis, left hip SEE PRIMARY DX Procedures [place] EXCISION TROCHANTERIC BURSA/CALCIFICATION BURSECTOMY, HIP [facility] Operating Room [address] [place] [address] Phone: tel: fax: [facility] Operating Room [address] [place] [address] Phone: tel: fax: Referral ID Status Reason Start Date Expiration Date Visits Re quested Visits Authorized [id number] 1 1 Encounter Details Date Type Department Care Team (Late st Contact Info) Description 06/12/2025 8:21 AM EDT Anesthesia Event [facility] Operating Room [address] [place] [address] Valeri Phillips MD [address], [place] [id number] Irma Reardon CRNA [address], [place] [id number] Anesthesia Record Procedure Summary Procedure Name Responsible Anesthesiologist Anesthesia Start Time Anesthesia Stop Time (LEFT HIP ARTHROSCOPIC BURSECTOMY, POSSIBLE ABDUCTOR REPAIR) (Left: Hip) Valeri Phillips MD 06/12/25 0821 06/12/25 0949 Events Date Time Event Comment 06/12/2025 0821 An Start Patient identif ied and chart reviewed. 0821 Pre-Induction Eval FDA anest hesia machine pre-use checkout completed. Patient status reassessed prior to start of anesthesia care. 0821 An Start Data Anesthesia mac abby and monitors checked. 0828 An Induction 0833 An Intubation 0845 Anesthesia Ready 0848 Quick Note Timeout complet ed with all team members prior to procedure start. Refer to intraop nursing record for most accurate time stamp 0900 Quick Note Magnesium stopp ed with ongoing hypotension. 1 gram infused 0938 An Extubation 0942 an stop data 0949 An Stop 0949 Handoff to Receiving I compl eted my handoff to the receiving clinician during which we: 1. Identified the patient. 2. Identified the responsible provider. 3. Reviewed the pertinent medical history. 4. Discussed the surgical course. 5. Reviewed intra-op anesthesia management and issues during anesthesia. 6. Set expectations for post-procedure period. 7. Allowed opportunity for questions and acknowledgement of understanding. Meds Name Total propofol (DIPRIVAN) infusion 10 mg/mL 21 2.5 mg phenylephrine (TEAGAN-SYNEPHRIN E) 20 mg in sodium chloride 0.9 % (NS) 250 mL infusion 495 mcg dexmedetomidine (PRECEDEX) injection 100 mcg/mL 10 mcg fentaNYL (SUBLIMAZE) 50 mcg/mL injection 100 mcg propofol (DIPRIVAN) injection 10 mg/mL b olus 200 mg lidocaine (XYLOCAINE) injection 2% 100 m g Lidocaine (HJOVUI-N-ARW KIT) laryngotrac heal topical soln 4% 4 mL rocuronium (ZEMURON) 100 mg/10 mL inject ion 30 mg phenylephrine (TEAGAN-SYNEPHRINE) injection 700 mcg ephedrine injection 50 mg/mL 25 mg dexamethasone (DECADRON) injection 4 mg/ mL 6 mg ondansetron (ZOFRAN) injection vial 4 mg glycopyrrolate (ROBINUL) injection 1 mg neostigmine (PROSTIGMINE) 1 mg/mL inject ion 5 mg magnesium sulfate injection 1 g clindamycin (CLEOCIN) IVPB 900 mg in dex trose 5 % 50 mL (premix) 900 mg scopolamine (TRANSDERM-SCOP) patch 1 mg/ 72 hr 1 patch tranexamic acid topical syringe 1,000 mg 1,000 mg vasopressin (VASOSTRICT) injection 4 Uni ts lactated Ringer's infusion 1,100 mL * Agents Name O2 N2O Air DESFLURANE * Blood No blood administrations on file. Lines, Drains, and Airways Type Details Placement Removal Wound 06/12/25; 0940; Inci mercy; Hip; Left; Surgical sites - left hip Xeroform, 4x4s, ABD pads, TP tape 06/12/25 0940 by Yee Martinez RN Wound 05/06/25; 1326; Inci mercy; Abdomen; Not applicable; sites x 3; 06/12/25; 0956; Unknown 05/06/25 1326 by Roberto Carlos Aviles RN 06/12/25 0956 by Maia Arredondo RN Wound 05/06/25; 1326; Inci mercy; Perineum; Not applicable; mesh panty; 06/12/25; 0957; Unknown 05/06/25 1326 by Roberto Carlos Aviles RN 06/12/25 0957 by Maia Arredondo RN Peripheral IV Placement Date: 05/28 05/22; Placement Time: 07; Size: 20 G; Orientation: Anterior, Left; Location: Forearm; Site Prep: Chlorhexidine ; Insertion attempts: 1; Securement Method: Taped; Removal Date: 06/12/25; Removal Time: 1126 06/12/25 07 by Emerald Sarkar RN 06/12/25 112 by Shira Siddiqui RN ETT Placement Date 06/12; Placement Time 08 (created via procedure documentation); Airway Size 7; Airway Cuffed Yes; Removal Date 06/12/25; Removal Time 0906/12/25 0833 by Santi Rock CRNA 06/12/25 09 by Santi Rock CRNA documented in this encounter 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 [...] Date Surinder rded Speak language other than Swedish at home Not on file 12/16/2023 Want [...] OR Notes * Anesthesia Postprocedure Evaluation - Santi Rock CRNA - 06/12/2025 9:52 AM EDT Patient: Celine Dc Procedure Summary Date: 06/12/25 Room / Location: [facility] OR [facility] OPERATING ROOM Anesthesia Start: 820 Anesthesia Stop: 948 Procedure: (LEFT HIP ARTHROSCOPIC BURSECTOMY, POSSIBLE ABDUCTOR REPAIR) (Left: Hip) Diagnosis: Trochanteric bursitis, left hip (SEE PRIMARY DX) Surgeons: Vaibhav Chester MD Responsible Provider: Valeri Phillips MD Anesthesia Type: general ASA Status: 3 Anesthesia Type: general Vitals Value Taken Time BP 118/58 06/12/25 0951 Temp 98.2 F 06/12/25 0952 Pulse 82 06/12/25 0951 Resp 14 06/12/25 0951 SpO2 95 % 06/12/25 0951 Vitals shown include unfiled device data. Ht 1.676 m (5' 6 ) Wt 123.1 kg (271 lb 6.4 oz) BMI 43.81 kg/m?? Anesthesia Post Evaluation Patient location during evaluation: PACU Patient participation: complete - patient participated Level of consciousness: awake Pain management: adequate Multimodal analgesia pain management approach Airway patency: patent Cardiovascular status: hemodynamically stable Respiratory status: face mask, spontaneous ventilation and nonlabored ventilation Hydration status: stable Color: [place] Activity: Moves 4 extremities Inotropes/Vasopressors: N/A No notable events documented. Santi Rock CRNA 06/12/2025 9:52 AM EDT * Anesthesia Procedure Notes - Santi Rock CRNA - 06/12/2025 8:41 AM EDT Associated Order(s): Intubation Intubation Authorized by: Valeri Phillips MD Performed by: Santi Rock CRNA Date/Time: 06/12/2025 8:33 AM Urgency: elective Indications and Patient Condition Indications for airway management: anesthesia and airway protection Spontaneous Ventilation: absent Sedation level: general anesthesia Preoxygenated: yes Patient position: sniffing Mask difficulty assessment: 2 - vent by mask + OA or adjuvant +/- NMBA Planned trial extubation: yes Final Airway Details Final airway type: endotracheal airway Endotracheal tube type: ETT Cuffed: yes Successful intubation technique: direct laryngoscopy Facilitating devices/methods: intubating stylet and anterior pressure/BURP Endotracheal tube insertion site: oral Blade: Yuniel Blade size: #4 ETT size (mm): 7.0 Cormack-Lehane Classification: grade I - full view of glottis Placement verified by: chest auscultation and capnometry Cuff volume (mL): 8 Measured from: lips ETT to lips (cm): 19 Number of attempts at approach: 1 Number of other approaches attempted: 0 Additional Comments Atraumatic Intubation. Lips, gums, and dentition unchanged and as preop. Bilateral BS and chest rise, ETCO2 confirmed * Anesthesia Preprocedure Evaluation - Trey Cortes MD - 06/12/2025 7:11 AM EDT Images from the original note were not included. Anesthesia Pre Evaluation Ms. Celine Dc is a 40 y.o. female being evaluated for the following: Date/Time: 06/12/25 0932 Procedure: (LEFT HIP ARTHROSCOPIC BURSECTOMY, POSSIBLE ABDUCTOR REPAIR) (Left) Location: [facility] OR OPERATING ROOM Surgeons: Vaibhav Chester MD Relevant Problems ANESTHESIA (+) CON (obstructive sleep apnea) (+) PONV (postoperative nausea and vomiting) CARDIOVASCULAR (+) HTN (hypertension) ENDOCRINE (+) Diabetes mellitus, type 2 (HCC) GASTROINTESTINAL (+) GERD (gastroesophageal reflux disease) /RENAL (within normal limits) NEURO/PSYCH (+) Migraines RESPIRATORY SYSTEM (within normal limits) Other (+) Morbid obesity (HCC) (+) RLS (restless legs syndrome) Current Outpatient Medications Medication Instructions busPIRone (BUSPAR) [...] tablet No dose, route, or frequency recorded. Allergies Allergen Reactions Penicillin Anaphylaxis Cephalexin Nausea And Vomiting Other reaction(s): Syncope Past Surgical History: Procedure Laterality Date BLADDER SLING SURGERY FOR LEAKAGE HYSTEROSCOPY,ENDOMETRIAL ABLATION 05/06/2025 Procedure: ABLATION, ENDOMETRIUM, WITH HYSTEROSCOPY; Surgeon: Dandy Duque MD; Location: [facility]; Service: Obstetrics & Gynecology (nurse practitioner per diem);; KIDNEY STONE SURGERY X 8 LAPAROSCOPY,DIAGNOSTIC N/A 05/06/2025 Procedure: Diagnostic LAPAROSCOPY, ENDOMETRIAL ABLATION; Surgeon: Dandy Duque MD; Location: [facility]; Service: Obstetrics & Gynecology (nurse practitioner per diem); Laterality: N/A; LEFT WRIST SURGERY Left BENIGN TUMOR REMOVAL LITHOTRIPSY,EXTRACORPOREAL SHOCK WAVE (ESWL) Bilateral 11/17/2023 Procedure: BILATERAL ESWL; Surgeon: Hira Rider MD; Location: [facility]; Service: Urology; Laterality: Bilateral; ESWL CONF #: [id number] SPOKE TO ARUN SINUS SURGERY X 2 WISDOM TOOTH EXTRACTION 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 Tobacco Use Smoking status: Never Smokeless tobacco: Never Substance Use Topics Alcohol use: Not Currently Comment: RARELY Clinical information reviewed: NPO Status Date of last liquid: 06/11/25 Time of last liquid: 2358 Date of last solid: 06/11/25 Time of last solid: 2358 Physical Exam Airway Mallampati: II TM distance: >3 FB Neck ROM: full Cardiovascular - normal exam Rhythm: regular Rate: normal Dental Pulmonary - normal exam Breath sounds clear to auscultation Abdominal (+) obese Anesthesia Plan ASA 3 Planned anesthetic: general Anesthesia Plan Factors- The patient is not a current smoker. Induction: intravenous Postoperative Plan- Postoperative administration of opioids is intended. Trial extubation is planned. Informed Consent- Anesthetic plan and risks discussed with patient and spouse. Plan discussed with CHARGE AUTHORIZER. documented in this encounter Plan of Treatment Not on file documented as of this encounter Procedures Procedure Name Priority Date/Time Associated Diagnosis Comments ANESTHESIA INTUBATION Routine 06/12/2025 8:33 AM EDT documented in this encounter Results * AN SINGLE LUMEN INTUBATION (06/12/2025 8:33 AM EDT) Santi Henderson CRNA - 06/12/2025 8:33 AM EDT Santi Rock CRNA 06/12/2025 8:45 AM Intubation Authorized by: Valeri Phillips MD Performed by: Santi Rock CRNA Date/Time: 06/12/2025 8:33 AM Urgency: elective Indications and Patient Condition Indications for airway management: anesthesia and airway protection Spontaneous Ventilation: absent Sedation level: general anesthesia Preoxygenated: yes Patient position: sniffing Mask difficulty assessment: 2 - vent by mask + OA or adjuvant +/- NMBA Planned trial extubation: yes Final Airway Details Final airway type: endotracheal airway Endotracheal tube type: ETT Cuffed: yes Successful intubation technique: direct laryngoscopy Facilitating devices/methods: intubating stylet and anterior pressure/BURP Endotracheal tube insertion site: oral Blade: Yuniel Blade size: #4 ETT size (mm): 7.0 Cormack-Lehane Classification: grade I - full view of glottis Placement verified by: chest auscultation and capnometry Cuff volume (mL): 8 Measured from: lips ETT to lips (cm): 19 Number of attempts at approach: 1 Number of other approaches attempted: 0 Additional Comments Atraumatic Intubation. Lips, gums, and dentition unchanged and as preop. Bilateral BS and chest rise, ETCO2 confirmed us Valeri Phillips MD ANESTHESIA ORDERABLES Brigida zapata Result documented in this encounter Visit Diagnoses Not on filedocumented in this encounter Administered Medications Inactive Administered Medications - up to 3 most recent administrations Medication Order MAR Action Action Date Dose Rate Site clindamycin (CLEOCIN) IVPB 900 mg in dextrose 5 % 50 mL (premix) 900 mg Once, intravenous, Administer over 60 Minutes, On Tue06/12/25 at 0730, For 1 dose, Administer within 60 minutes of incision., Pre-op, Please choose an indication: Surgical Prophylaxis Given 06/12/2025 8:35 AM EDT 900 mg dexAMETHasone (DECADRON) injection As needed, intravenous, Starting on Tue06/12/25 at 0828, Anesthesia Intra-op Given 06/12/2025 8:28 AM EDT 6 mg dexmedeTOMIDine (PRECEDEX) injection As needed, intravenous, Starting on Tue06/12/25 at 0828, Anesthesia Intra-op Given 06/12/2025 8:37 AM EDT 4 mcg Given 06/12/2025 8:28 AM EDT 6 mcg ePHEDrine sulfate injection As needed, intravenous, Starting on Tue06/12/25 at 0858, Anesthesia Intra-op Given 06/12/2025 9:04 AM EDT 10 mg Given 06/12/2025 9:02 AM EDT 5 mg Given 06/12/2025 8:58 AM EDT 10 mg fentaNYL PF (SUBLIMAZE) injection As needed, intravenous, Starting on Tue06/12/25 at 0828, Anesthesia Intra-op Given 06/12/2025 9:43 AM EDT 25 mcg Given 06/12/2025 8:28 AM EDT 75 mcg glycopyrrolate (ROBINUL) injection As needed, intravenous, Starting on Tue06/12/25 at 0920, Anesthesia Intra-op Given 06/12/2025 9:28 AM EDT 0.8 mg Given 06/12/2025 9:20 AM EDT 0.2 mg lactated Ringer's infusion 100 mL/hr Continuous, intravenous, Starting on Tue06/12/25 at 0730, Pre-op New Bag 06/12/2025 9:33 AM EDT 100 mL/hr Continued by Anesthesia 06/12/2025 8:21 AM EDT 100 mL/hr New Bag 06/12/2025 7:22 AM EDT 100 mL/hr 100 mL/hr lidocaine (LTA) 4 % solution As needed, laryngotracheal, Starting on Tue06/12/25 at 0832, Anesthesia Intra-op Given 06/12/2025 8:32 AM EDT 4 mLs lidocaine (XYLOCAINE) injection 2% As needed, intravenous, Starting on Tue06/12/25 at 0828, Anesthesia Intra-op Given 06/12/2025 8:28 AM EDT 100 mg magnesium sulfate 500 mg/mL (50 %) injection As needed, intravenous, Starting on Tue06/12/25 at 0840, Anesthesia Intra-op Given 06/12/2025 8:37 AM EDT 1 g neostigmine methylsulfate (PROSTIGMINE) injection As needed, intravenous, Starting on Tue06/12/25 at 0928, Anesthesia Intra-op Given 06/12/2025 9:28 AM EDT 5 mg ondansetron (ZOFRAN) injection As needed, intravenous, Starting on Tue06/12/25 at 0928, Anesthesia Intra-op Given 06/12/2025 9:28 AM EDT 4 mg phenylephrine (TEAGAN-SYNEPHRINE) 20 mg in sodium chloride 0.9 % (NS) 250 mL infusion Continuous PRN, intravenous, Starting on Tue06/12/25 at 0913, Anesthesia Intra-op Rate/Dose Change 06/12/2025 9:28 AM EDT 15 mcg/min 11.25 mL/hr Rate/Dose Change 06/12/2025 9:16 AM EDT 30 mcg/min 22.5 mL /hr New Bag 06/12/2025 9:13 AM EDT 20 mcg/min 15 mL/hr phenylephrine (TEAGAN-SYNEPHRINE) injection As needed, intravenous, Starting on Tue06/12/25 at 0845, Anesthesia Intra-op Given 06/12/2025 8:55 AM EDT 200 mcg Given 06/12/2025 8:51 AM EDT 100 mcg Given 06/12/2025 8:49 AM EDT 100 mcg propofol (DIPRIVAN) injection 10 mg/mL bolus As needed, intravenous, Starting on Tue06/12/25 at 0828, Anesthesia Intra-op Given 06/12/2025 8:31 AM EDT 50 mg Given 06/12/2025 8:29 AM EDT 30 mg Given 06/12/2025 8:28 AM EDT 120 mg propofoL (DIPRIVAN) injection Continuous PRN, intravenous, Starting on Tue06/12/25 at 0828, Anesthesia Intra-op Rate/Dose Change 06/12/2025 9:27 AM EDT 20 mcg/kg/min 12 mL/hr New Bag 06/12/2025 8:28 AM EDT 35 mcg/kg/min 21 mL/hr rocuronium (ZEMURON) injection As needed, intravenous, Starting on Tue06/12/25 at 0829, Anesthesia Intra-op Given 06/12/2025 8:29 AM EDT 20 mg Given 06/12/2025 8:28 AM EDT 10 mg scopolamine (TRANSDERM-SCOP) patch 1 mg/72 hr 1.5 mg Once (1 patch), transdermal (scopolamine), Administer over 72 Hours, On Tue06/12/25 at 0730, For 1 dose, Pre-op Given 06/12/2025 8:21 AM EDT 1 pa tch Patch Applied 06/12/2025 7:19 AM EDT 1.5 mg Behind Right Ear tranexamic acid topical syringe 1,000 mg 1,000 mg Once, intra-articular, On Tue06/12/25 at 0730, For 1 dose, Administer immediately preop for surgical prophylaxis: Orthopedic, Pre-op Given 06/12/2025 8:35 AM EDT 1,000 mg vasopressin (VASOSTRICT) injection As needed, buccal, Starting on Tue06/12/25 at 0910, Anesthesia Intra-op Given 06/12/2025 9:17 AM EDT 1 Units Given 06/12/2025 9:16 AM EDT 1 Units Given 06/12/2025 9:10 AM EDT 1 Units documented in this encounter Care Teams Sand Technician Relationship Specialty Start Date End Date Tyrell Magana MD [address] [place] [address] PCP - General Family Medicine 11/15/23 documented as of this encounter
--- OUTSIDE RECORDS SUMMARY | 2025-06-12 09:32 | XMS_ITS | Encounter Summary ---
Author Organization [employer] ([place], [place], [place], [place]) Address [address] [place] [address] Care Team Providers Care Intelligence Director Name Role Phone Tyrell Magana MD Primary Care Provider +1- [phone] Reason for Visit * Auth/Cert (Routine) Specialty Diagnoses / Procedures Referred By Bao bautista Referred To Contact Diagnoses Trochanteric bursitis, left hip SEE PRIMARY DX Procedures CT EXCISION TROCHANTERIC BURSA/CALCIFICATION BURSECTOMY, HIP [facility] Operating Room [address] [place] [address] Phone: tel: fax: [facility] Operating Room [address] [place] [address] Phone: tel: fax: Referral ID Status Reason Start Date Expiration Date Visits Re quested Visits Authorized [id number] 1 1 Encounter Details Date Type Department Care Team (Late st Contact Info) Description 06/12/2025 9:32 AM EDT - 06/12/2025 11:19 AM EDT Surgery [facility] Operating Room [address] [place] [address] Vaibhav Chester MD [address] [place] [address] (LEFT HIP ARTHROSCOPIC BURSECTOMY, POSSIBLE ABDUCTOR REPAIR) 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 Tobacco Use Types Packs/Day Years [...] Date Surinder rded Speak language other than Nauruan at home Not on file 12/16/2023 Want [...] Care Everywhere. * Hip Arthroscopy Care After (Nauruan) * General Anesthesia Adult Care After (Nauruan) documented in this encounter Medications at Time [...] wave (eswl) (Bilateral, 11/17/2023); Kidney stone surgery; [place] tooth extraction; Sinus surgery; Colon surgery; LEFT [...] 127 (H) 70 - 110 mg/dL Final Seal Mixing Operator 06/12/2025 [id number] Final X-ray chest PA and lateral Narrative: [...] electronically signed by Nithin Matamoros MD Voice operator prefinish technology (Power Scribe) is used for the dictation of this note and sound-alike words might be erroneously placed despite reviewing this note for accuracy. Errors in dictation may reflect use of voice recognition software and not all errors in operator prefinish may have been detected prior to signing. Assessment & Plan Trochanteric bursitis, left hip -to OR for scheduled procedure CON, CPAP HTN GERD DM II Obesity Migraines RLS Anxiety PONV documented in this encounter OR Notes * Op Note - Vaibhav Chester MD - 06/12/2025 9:43 AM EDT Date: 06/12/2025 Surgeon: Conor Chester M.D. Assistants: Inderjit Nolan C.S.A. The preschool teacher's assistant was necessary for positioning, draping, retraction, drilling while I held the guide, and wound closure. The printer assistant allowed the procedure be completed in [...] L Estimated Blood Loss: 10 ml Implants: [place] Iconix x2, Alphavent Indications for Procedure: Mr.s [...] GLUCOSE POC Routine 06/12/2025 9:[address] EXCISION TROCHANTERIC BURSA/CALCIFICATION 06/12/2025 8:21 AM EDT Trochanteric bursitis, left hip Case Notes IN 0630, 1h (R), ARTHREX, REGULAR OR TABLE NOVA GLUCOSE POC Routine 06/12/2025 7:21 AM EDT FS_MODEL_IP POCT , URINE Routine 06/12/2025 7:07 AM EDT documented in this encounter Results * (ABNORMAL) Glucose, Nova Meter (06/12/2025 10:58 AM EDT) POC-GLUCOSE 144(H) 70 - 110 mg/dL 06/12/2025 11:00 AM EDT [facility] Comment: In the event of poor peripheral blood flow, venous or arterial blood should be used due to the potential of erroneous results. Protocols Followed Seal Mixing Operator [id number] 06/12/2025 11:00 AM EDT [facility] Blood WHOLE BLOOD / Unknown 06/12/2025 10:58 AM EDT 06/12/2025 11:00 AM EDT Narrative [facility] - 06/12/2025 11:00 AM EDT Seal Mixing Operator ID is - [id number] us Vaibhav Chester MD POINT OF CARE TEST ORDERAB LES Final Result [facility] [address] [phone] * (ABNORMAL) Glucose, Nova Meter (06/12/2025 9:49 AM EDT) POC-GLUCOSE 140(H) 70 - 110 mg/dL 06/12/2025 9:50 AM EDT [facility] Comment: In the event of poor peripheral blood flow, venous or arterial blood should be used due to the potential of erroneous results. Notified Nurse RBV Seal Mixing Operator [id number] 06/12/2025 9:50 AM EDT [facility] Blood WHOLE BLOOD / Unknown 06/12/2025 9:49 AM EDT 06/12/2025 9:50 AM EDT Narrative [facility] - 06/12/2025 9:50 AM EDT Seal Mixing Operator ID is - [id number] Vaibhav Chester MD POINT OF CARE TEST ORDERAB LES Final Result Performing Organization Address [facility] de Phone Number [facility] [address] [place] [address] * (ABNORMAL) Glucose, Nova Meter (06/12/2025 7:21 AM EDT) POC-GLUCOSE 127(H) 70 - 110 mg/dL 06/12/2025 7:23 AM EDT [facility] Comment: In the event of poor peripheral blood flow, venous or arterial blood should be used due to the potential of erroneous results. Notified Nurse RBV Seal Mixing Operator [id number] 06/12/2025 7:23 AM EDT [facility] Blood WHOLE BLOOD / Unknown 06/12/2025 7:21 AM EDT 06/12/2025 7:23 AM EDT Narrative [facility] - 06/12/2025 7:23 AM EDT Seal Mixing Operator ID is - [id number] us Vaibhav Chester MD POINT OF CARE TEST ORDERAB LES Final Result Performing Organization Address [facility] Co de Phone Number [facility] [address] [phone] * POCT , urine (06/12/2025 7:07 AM [...] disc disease) Degeneration of cervical intervertebral disc Trochanteric bursitis, left hip documented in this encounter Administered Medications Inactive Administered Medications - up to 3 most recent administrations Medication Order MAR Action Action Date Dose Rate Site acetaminophen (TYLENOL) tablet 1,000 mg 1,000 mg Once, oral, On Tue06/12/25 at 0730, For 1 dose, Give 2 hours prior to procedure, Pre-op Given 06/12/2025 7:19 AM EDT 1,000 mg BUPivacaine (PF) (MARCAINE) injection As needed, Starting on Tue06/12/25 at 0920, Intra-op Given 06/12/2025 9:20 AM EDT 15 mLs fentaNYL PF (SUBLIMAZE) injection 25 mcg 25 [...] (Given - Provid er: Maia Arredondo RN) oxyCODONE (ROXICODONE) immediate release tablet 5 [...] Pre-op documented in this encounter Care Teams Intelligence Director Relationship Specialty Start Date End Date Tyrell Magana MD [address] [place] [address] PCP - General Family Medicine 11/15/23 documented as of this encounter
--- OUTSIDE RECORDS SUMMARY | 2025-08-05 09:28 | XMS_ITS | Referral Summary ---
Author Organization [employer] ([place], [place], [place], [place]) Address [address] [place] [address] Care Team Providers Care Contact Lens Curve Grinder Name Role Phone Tyrell Magana MD Primary Care Provider +1- [phone] Encounters Date Type Department Care Team Description 06/12/2025 Travel 06/12/2025 9:32 AM EDT - 06/12/2025 11:19 AM EDT Surgery [facility] Operating Room [address] [place] [address] Vaibhav Chester MD (LEFT HIP ARTHROSCOPIC BURSECTOMY, POSSIBLE ABDUCTOR REPAIR) 06/12/2025 8:21 AM EDT Anesthesia Event [facility] Operating Room [address] [place] [address] Valeri Phillips MD [place], Kristen, [place] 06/12/2025 6:34 AM EDT - 06/12/2025 11:27 AM EDT Hospital Encounter [facility] Operating Room [address] [place] [address] Vaibhav Chester MD Hip abductor tendinitis, left (Primary Dx) Discharge Disposition: Home or Self Care 05/06/2025 Travel 05/06/2025 12:00 PM EDT - 05/06/2025 1:52 PM EDT Surgery [facility] Surgery Department [address] [place] [address] Justice Miller MD Diagnostic LAPAROSCOPY, ENDOMETRIAL ABLATION 05/06/2025 12:59 PM EDT Anesthesia Event [facility] Surgery Department [address] [place] [address] Chery Gill CRNA Booker, Philip Craig, MD 05/06/2025 9:19 AM EDT - 05/06/2025 3:19 PM EDT Hospital Encounter [facility] Surgery Department [address] [place] [address] Justice Miller MD Excessive or frequent menstruation; Encounter for gynecological examination with abnormal finding; Excessive, frequent and irregular menstruation; Secondary dysmenorrhea Discharge Disposition: Home or Self Care from [...] glycopyrrolate (RobinuL) 1 mg tablet 3 Active meloxicam (MOBIC) 7.5 MG tablet TAKE 1 TABLET BY MOUTH EVERY DAY FOR ARTHRITIS 3 Active metFORMIN (GLUCOPHAGE) 500 MG tablet Active multivit with calcium,iron,mi n (MULTIVITAMIN-C ALCIUM AND IRON ORAL) 3 Active pantoprazole (PROTONIX) 40 MG tablet Take 1 tablet (40 mg total) by mouth daily. Active potassium citrate (Urocit-K 15) 15 mEq TbER 3 Active propranoloL (Inderal LA) 60 MG 24 hr capsule 3 Active zafirlukast (Accolate) 20 MG tablet [...] (1 mg total) by mouth daily. Active Active [...] rded Speak language other than Citizen [place] at home Not on file 12/16/2023 Want [...] on file Medical Devices Implanted Type Area Bobbin Sorter Device Identifier Shelf Expiration Date Model / Serial / Lot [place] Knotilus 2.3mm [id number] - [id number] Implanted:Qty: 2 on 06/12/2025 by Vaibhav Chester MD at [facility] IMPLANTS Left: Hip TUNG:TUNG ENDOSCOPY 12/28/2029 [id number] / / [id number] [place] Peek Knotless Sp 4.75mm [id number] - [id number] Implanted:Qty: 1 on 06/12/2025 by Vaibhav Chester MD at [facility] IMPLANTS Left: Hip TUNG:TUNG ENDOSCOPY 02/01/2027 [id number] / / [id number] Procedures Procedure Name Priority Date/Time Associated Diagnosis Comments NOVA GLUCOSE POC Routine 06/12/2025 10:5 8 AM EDT NOVA GLUCOSE POC Routine 06/12/2025 9:49 AM EDT ANESTHESIA INTUBATION Routine 06/12/2025 8:33 AM EDT MS EXCISION TROCHANTERIC BURSA/CALCIFICATION 06/12/2025 8:21 AM EDT [...] ANESTHESIA INTUBATION Routine 05/06/2025 1:06 PM EDT MS HYSTEROSCOPY ENDOMETRIAL ABLATION 05/06/2025 12:58 PM EDT Excessive or frequent menstruation Encounter for gynecological examination with abnormal finding Excessive, frequent and irregular menstruation Secondary dysmenorrhea Case Notes This case needs to be Robotic per TEJAS Love MS LAPS ABD PRTM&OMENTUM DX W/WO SPEC BR/WA SPX 05/06/2025 12:58 PM EDT Excessive or frequent menstruation Encounter for gynecological examination with abnormal finding Excessive, frequent and irregular menstruation Secondary dysmenorrhea Case Notes This case needs to be Robotic per TEJAS Love EKG-SCANNED 05/06/2025 from Last 3 Months Results * (ABNORMAL) Glucose, Nova Meter (06/12/2025 10:58 AM EDT) Only the most recent of4 resultswithin the time period is included. POC-GLUCOSE 144(H) 70 - 110 mg/dL 06/12/2025 11:00 AM EDT [facility] Comment: In the event of poor peripheral blood flow, venous or arterial blood should be used due to the potential of erroneous results. Protocols Followed Leaflet Or Newspaper Deliverer [id number] 06/12/2025 11:00 AM EDT [facility] Blood WHOLE BLOOD / Unknown 06/12/2025 10:58 AM EDT 06/12/2025 11:00 AM EDT Narrative [facility] - 06/12/2025 11:00 AM EDT Leaflet Or Newspaper Deliverer ID is - [id number] us Vaibhav Chester MD POINT OF CARE TEST ORDERAB LES Final Result [facility] [address] [place] [address], [facility] [phone] * AN SINGLE LUMEN INTUBATION (06/12/2025 8:33 [...] us Valeri Phillips MD ANESTHESIA ORDERABLES Brigida l [...] CYTOLOGY LABORATORY Comment: [facility] [address] [place] [address] or [phone] Heath Pruett M.D., Roll Tester PATIENT NAME LABORATORY NO. 170CELINE JEFFERS. [id number] AGE SEX SSN CLIENT REF # [place] [id number] 1985 F [id number] [address] REQUESTING MTobin [place] [address] JUSTICE MILLER DATE COLLECTED DATE RECEIVED DATE [...] rendered by Ailyn Siddiqui M.D., F.C.A.P. at [employer], [employer], [address] [place] [address]. GROSS DESCRIPTION: Labeled endometrial curettings consists of multiple pieces of rocha-brown soft tissue measuring 3.0 x 2.5 x 0.6 cm in aggregate. Specimens are filtered and submitted entirely in 3 blocks. BKO REVIEWED, DIAGNOSED AND ELECTRONICALLY SIGNED BY: Ailyn Siddiqui M.D., F.C.A.P. CPT CODES: [id number] Tissue SPECIMEN FROM ENDOMETRIUM OBTAINED BY CURETTAGE / Unknown 05/06/2025 1:43 PM EDT Justice Miller MD PATHOLOGY/CYTOLOGY ORDERABLES Final Result [facility] [address] [place] [address], [facility] * AN SINGLE LUMEN INTUBATION (05/06/2025 1:06 [...] Default Scanning Provider SCAN ORDERS Final Result from Last 3 Months Insurance BLUE CROSS/BLUE SHIELD Advance Directives For more information, please contact: [phone] * Full Code (Latest Code Status on File) Date Activated Date Inactivated Comments 06/12/2025 6:02 AM 06/12/2025 12:28 PM * Full Code Date Activated Date Inactivated Comments 11/17/2023 11:34 AM 11/17/2023 6:14 PM Care Teams Contact Lens Curve Grinder Relationship Specialty Start Date End Date Tyrell Magana MD [address] [place] [address] [place] [address] PCP - General Family Medicine 11/15/23
--- OUTSIDE RECORDS SUMMARY | 2025-08-05 09:28 | XMS_ITS | Encounter Summary ---
Author Organization [facility] Address [address] [place] [address] Care Team Providers Care Manager Mall Name Role Phone Dustin Gomez MD Primary Care Provider Unavailabl e Doctor, Vicki Primary Care Provider Unavailabl e Encounter Details Date Type Department Care Team (Late st Contact Info) Description 07/04/2009 Abstract Initial Department [address] [facility] [place] [address] [place], [place] 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 Tobacco Use Types Packs/Day [...] filedocumented in this encounter Care Teams Manager Mall Relationship Specialty Start Date End Date Dustin Gomez MD PCP - General 08/02/08 02/11/14 Doctor, ELOISA Vides PCP - General Family Medicine 02/12/14 12/30/17 documented as of this encounter
--- OUTSIDE RECORDS SUMMARY | 2025-08-05 09:28 | XMS_ITS | Clinical Summary ---
Author Organization [facility] Address [address] [place] [address] Care Team Providers Care Soaker Meat Name Role Phone Tyrell Magana MD Primary Care Provider +1- [phone] Allergies Active Allergy Reactions Criticality Noted Date Comments Cephalexin Other (See Comments) High 04/10/2017 Loss of consciousness Penicillins Anaphylaxis High 04/10/2017 Medications lisinopril (PRINIVIL,ZESTR IL) 10 MG tablet Take 1 tablet by mouth Daily. Active Multiple Vitamins-Minera ls (MULTIVITAMIN WITH MINERALS) tablet Take 1 tablet by mouth. Active glycopyrrolate (ROBINUL) 1 MG tablet Take 3 tablets by mouth See Admin Instructions. take 2 tablets by mouth in the morning and 1 in the evening 1 9 Active zafirlukast (ACCOLATE) 20 MG tablet Take 1 tablet by mouth 2 (Two) Times a Day. 1 9 Active metFORMIN ER (GLUCOPHAGE-XR) 500 MG 24 hr tablet TAKE 2 TABLETS BY MOUTH EVERY DAY WITH EVENING MEAL 0 9 Active fluticasone (FLONASE) 50 MCG/ACT nasal spray fluticasone propionate 50 mcg/actuation nasal spray,suspension [place] 1 spray every day by intranasal route. [...] Citrate ER 15 MEQ (1620 MG) tablet controlled-rele ase Take 1 tablet by mouth Every 12 [...] Take 1 capsule by mouth Daily. Active Active Problems Problem Noted Date Diagnosed [...] order sent to DME of patient choice. Hypertension Assessment & Plan [...] Description 06/06/2025 10:30 AM EDT Office Visit [facility] [address] [place] [phone] Coreen Devi APRN CON (obstructive sleep apnea) (Primary Dx) 06/06/2025 Patient rounding ([facility] only) [facility] [address] [facility] [place] [phone] Coreen Devi APRN 06/06/2025 Travel from Last [...] Description 06/05/2026 10:30 AM EDT Office Visit [facility] [address] [place] [phone] Coreen Devi APRN [address] [place] [address] [place] [address] Health Maintenance Due Date Last Done Comments [...] C SCREENING 04/10/2017 MAMMOGRAM 2024 COVID-19 Vaccine ( - 2024-2 6 season) 2025 05/01/2024, 06/22/2022, 10/20/2021, Additional history exists INFLUENZA VACCINE 08/28/2025 09/14/2024, , 09/16/2022, Additional history exists Procedures Procedure Name Priority Date/Time Associated Diagnosis Comments SCANNED - PULMONARY RESULTS 06/06/2025 from Last 3 Months Results * Pulmonary Results Scan (06/06/2025) Coreen Devi DIRECTOR OF RETAIL ANALYTICS PFT ORDERABLES Final Result from Last 3 Months Insurance EMPLOYEE Care Teams Soaker Meat Relationship Specialty Start Date End Date Tyrell Magana MD [address] [place] [id number] PCP - General Family Medicine 06/03/23
--- OUTSIDE RECORDS SUMMARY | 2025-08-05 09:28 | XMS_ITS | Encounter Summary ---
Author Organization [facility] Address [address] [place] [address] Care Team Providers Care Leverman Name Role Phone Dustin Gomez MD Primary Care Provider Unavailabl e Doctor, Vicki Primary Care Provider Unavailabl e Encounter Details Date Type Department Care Team (Late st Contact Info) Description 08/14/2007 Historical Encounter Global Leann Bond MD [address] [facility] [place] [address] 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 Tobacco Use Types Packs/Day Years [...] on filedocumented in this encounter Care Teams Leverman Relationship Specialty Start Date End Date Dustin Gomez MD PCP - General 08/02/08 02/11/14 Vicki Villavicencio [place] PCP - General Family Medicine 02/12/14 12/30/17 documented as of this encounter
--- OUTSIDE RECORDS SUMMARY | 2025-08-05 09:28 | XMS_ITS | Encounter Summary ---
Author Organization [facility] Address [address] [place] [address] Care Team Providers Care Lead Investigator Name Role Phone Dustin Gomez MD Primary Care Provider Unavailabl e Doctor, Vicki Primary Care Provider Unavailabl e Reason for Visit * Reason Onset Date Comments Referral Status 04/16/2010 Encounter Details Date Type Department Care Team (Late st Contact Info) Description 04/16/2010 Telephone [facility] [address] [place] [address] eJsus Osborne APRN Referral Status 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 Tobacco [...] on filedocumented in this encounter Care Teams Lead Investigator Relationship Specialty Start Date End Date Dustin Gomez MD PCP - General 08/02/08 02/11/14 , ELOISA Vides PCP - General Family Medicine 02/12/14 12/30/17 documented as of this encounter
--- OUTSIDE RECORDS SUMMARY | 2025-08-05 09:28 | XMS_ITS | Encounter Summary ---
Author Organization [facility] Address [address] [place] [address] Care Team Providers Care Scenic Arts Supervisor Name Role Phone Tyrell Magana MD Primary Care Provider +1- [phone] Encounter Details Date Type Department Care Team (Late st Contact Info) Description 06/06/2025 Patient rounding ([facility] [facility] [address] [place] [address] Coreen Devi, WASHROOM CLEANER [address] [place], [place] [id number] 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 Tobacco Use Types Packs/Day Years [...] is Betina Carreno and I am the Body Trimmer for [facility]. I would like to thank [...] your first visit to us as a [facility]? In the next few days, you will be receiving a Patient Experience Survey. Thank you for taking the time to answer a few questions today. I hope you have a good day. documented in this encounter Plan of Treatment Upcoming Encounters Date Type Department Care Team (Late st Contact Info) Description 06/05/2026 10:30 AM EDT Office Visit [facility] [address] [place] [address] Coreen Devi, WASHROOM CLEANER [address] [place] [address] [place] [address] documented as of this encounter Visit Diagnoses Not on filedocumented in this encounter Care Teams Scenic Arts Supervisor Relationship Specialty Start Date End Date Tyrell Magana MD [address] [place] [address] [place] [address] PCP - General Family Medicine 06/03/23 documented as of this encounter
--- OUTSIDE RECORDS SUMMARY | 2025-08-05 09:28 | XMS_ITS | Encounter Summary ---
Author Organization [facility] Address [address] [place] [address] Care Team Providers Care Dial Refinisher Name Role Phone Dustin Gomez MD Primary Care Provider Unavailabl e Doctor, No Primary Care Provider Unavailabl e Encounter Details Date Type Department Care Team (Latest Contact Info) Description 04/09/2010 Transcribe Orders [facility] [address] [place] [address] Dustin Gomez MD Hypopotassemia (Primary [...] EDT) POTASSIUM 3.4(L) 3.6 - 5.0 MMOL/L [facility] 04/09/2010 8:10 AM EDT 04/09/2010 11:51 AM EDT us Dustin Gomez MD CHEMISTRY ORDERABLES Final Resul t [facility] [address] [facility] [place] [facility] [address] documented in this encounter Visit Diagnoses Diagnosis Hypopotassemia- Primary documented in this encounter Care Teams Dial Refinisher Relationship Specialty Start Date End Date Dustin Gomez MD PCP - General 08/02/08 02/11/14 Vicki Villavicencio [place] PCP - General Family Medicine 02/12/14 12/30/17 documented as of this encounter
--- OUTSIDE RECORDS SUMMARY | 2025-08-05 09:28 | XMS_ITS | Encounter Summary ---
Author Organization [employer] ([place], [place], [place], [place]) Address [address] [place] [address] Care Team Providers Care C Engineer Name Role Phone Tyrell Magana MD Primary Care Provider +1- [phone] Encounter Details Date Type Department Care Team (Late st Contact Info) Description 10/10/2019 Transcribed Document [facility] Family Medicine [facility] [place] [address] ProviderBen MD [address] [place] [address] 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 Tobacco Use Types [...] - Ben ProviderMD - 10/10/2019 12:50 PM HOSPICE RN Patient: CELINE MARKS Age: 34 Years Sex: [...] on filedocumented in this encounter Care Teams C Engineer Relationship Specialty Start Date End Date Tyrell Magana MD [address] [place] [address] [place] [address] PCP - General Family Medicine 11/15/23 documented as of this encounter
--- OUTSIDE RECORDS SUMMARY | 2025-08-05 09:28 | XMS_ITS | Encounter Summary ---
Author Organization [employer] ([place], [place], [place], [place]) Address [address] [place] [address] Care Team Providers Care Locks Inspector Name Role Phone Tyrell Magana MD Primary Care Provider +1- [phone] Encounter Details Date Type Department Care Team (Late st Contact Info) Description 10/10/2019 Transcribed Document [facility] Family Medicine [address] [place] [address] ProviderBen MD [address] [place] [address] 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 Tobacco Use Types [...] - Ben ProviderMD - 10/10/2019 12:15 PM SUPERVISOR HOME RESTORATION SERVICE [facility] Main OR Preop Summary Primary Physician: JOMAR JENKINS MD Finalized Date/Time: 10/10/19 12:06:45 Pt. Name: CELINE DC /Sex: 1985 Female Med Rec #: [id number] Physician: JOMAR JENKINS MD Financial #: [id number] Pt. Type: O Room/Bed: /1 Admit/Disch: 10/10/19 09:16:00 - Institution: [facility] Pre Case Times Entry 1 In Preop 10/10/19 09:30:00 Ready for Holding n/a Room Patient Ready for 10/10/19 11:28:00 Surgery Patient Out of Preop 10/10/19 12:02:00 Patient Out of n/a Holding Room Last Modified By: Heather Lipscomb RN 10/10/19 12:06:44 Finalized By: Heather Lipscomb, RN Document Signatures Signed By: Heather Lipscomb RN 10/10/19 12:06 Electronically signed by [facility] Conversion Cathode Ray Tube Salvage Processor Cerner at 03/13/2023 7:11 PM CDT documented in this encounter Plan of Treatment Not on file documented as of this encounter Visit Diagnoses Not on filedocumented in this encounter Care Teams Locks Inspector Relationship Specialty Start Date End Date Tyrell Magana MD [address] [place] [address] [place] [address] PCP - General Family Medicine 11/15/23 documented as of this encounter
--- OUTSIDE RECORDS SUMMARY | 2025-08-05 09:28 | XMS_ITS | Encounter Summary ---
Author Organization [facility] Address [address] [place] [address] Care Team Providers Care Rn Telemetry Name Role Phone Dustin Gomez MD Primary Care Provider Unavailabl e Doctor, No Primary Care Provider Unavailabl e Reason for Visit * Reason Onset Date Comments Medications Refill 03/23/2011 Encounter Details Date Type Department Care Team (Late st Contact Info) Description 03/23/2011 Refill [facility] [address] [place] [address] Dustin Gomez MD 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 [...] on filedocumented in this encounter Care Teams Rn Telemetry Relationship Specialty Start Date End Date Dustin Gomez MD PCP - General 08/02/08 02/11/14 , ELOISA Vides PCP - General Family Medicine 02/12/14 12/30/17 documented as of this encounter
--- OUTSIDE RECORDS SUMMARY | 2025-08-05 09:28 | XMS_ITS | Clinical Summary ---
Author Organization [facility] Address [address] [place] [address] Care Team Providers Care Regulatory Affairs Manager Name Role Phone Unavailable Primary Care Provider [...] patient's age to complete this topic Insurance [place] [address] [facility]
--- OUTSIDE RECORDS SUMMARY | 2025-08-05 09:28 | XMS_ITS | Clinical Summary ---
Author Organization [facility] Address [address] [place] [address] Care Team Providers Care Retail Store Associate Name Role Phone Oriana Murcia Primary Care [...] Not on file Insurance ANTHEM Care Teams Retail Store Associate Relationship Specialty Start Date End Date Oriana Murcia PA [address] [place] [address] [place] [address] PCP - General 04/10/21
--- OUTSIDE RECORDS SUMMARY | 2025-08-05 09:28 | XMS_ITS | Encounter Summary ---
Author Organization [facility] Address [address] [place] [address] Care Team Providers Care Second Cook And Baker Name Role Phone Tyrell Magana MD Primary Care Provider +1- [phone] Encounter Details Date Type Department Care Team [...] Description 06/05/2026 10:30 AM EDT Office Visit [facility] [address] [place] [address] SeCoreen whitten, TAVERN KEEPER [address] [place] [address] documented as of this encounter Visit Diagnoses Not on filedocumented in this encounter Care Teams Second Cook And Baker Relationship Specialty Start Date End Date Tyrell Magana MD [address] [place] [address] [place] [address] PCP - General Family Medicine 06/03/23 documented as of this encounter
--- OUTSIDE RECORDS SUMMARY | 2025-08-05 09:29 | XMS_ITS | Encounter Summary ---
Author Organization [employer] ([place], [place], [place], [place]) Address [address] [place] [address] Care Team Providers Care Exhaust And Muffler Repairer Name Role Phone Tyrell Magana MD Primary Care Provider +1- [phone] Encounter Details Date Type Department Care Team (Late st Contact Info) Description 05/15/2021 Transcribed Document [facility] Family [place] [address] ProviderBen MD [address] [place] [address] 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 Tobacco Use Types Packs/Day [...] Ben ProviderMD - 05/15/2021 7:56 AM CDT [facility] Main OR PostOp Summary Primary Physician: JOMAR JENKINS MD Finalized Date/Time: 05/15/21 10:50:17 Pt. Name: CELINE DC /Sex: 1985 Female Med Rec #: [id number] Physician: JOMAR JENKINS MD Financial #: [id number] Pt. Type: O Room/Bed: /11 Admit/Disch: 05/15/21 06:21:00 - Institution: [facility] Main OR PostOp Case Times Entry 1 In PACU II 05/15/21 09:25:00 Ready for PACU II 05/15/21 10:33:00 Discharge Discharge from PACU 05/15/21 10:33:00 II Last Modified By: ENIO DOS SANTOS RN 05/15/21 10:50:13 Finalized By: ENIO DOS SANTOS RN Document Signatures Signed By: ENIO DOS SANTOS RN 05/15/21 10:50 Electronically signed by Segundo [facility] Conversion Electronic Engineering Technician Cerner at 03/13/2023 7:20 PM CDT documented in this encounter Plan of Treatment Not on file documented as of this encounter Visit Diagnoses Not on filedocumented in this encounter Care Teams Exhaust And Muffler Repairer Relationship Specialty Start Date End Date Tyrell Magana MD [address] [place] [address] PCP - General Family Medicine 11/15/23 documented as of this encounter
--- OUTSIDE RECORDS SUMMARY | 2025-08-05 09:29 | XMS_ITS | Encounter Summary ---
Author Organization [employer] ([place], [place], [place], [place]) Address [address] [place] [address] Care Team Providers Care Regional Forester Name Role Phone Tyrell Magana MD Primary Care Provider +1- [phone] Encounter Details Date Type Department Care Team (Late st Contact Info) Description 10/10/2019 Transcribed Document [facility] Family Medicine [facility] [place] [address] ProviderBen MD [address] [place] [address] 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 Tobacco Use Types [...] - Ben ProviderMD - 10/10/2019 3:14 PM ELECTROMECHANICAL ASSEMBLY TECHNICIAN Patient Education Materials Follows: Ureteral Stent Implantation [...] including vitamins, herbs, eye drops, creams, and wwja-igu-yljftvp medicines. ??? Any problems you or family [...] these instructions at home: Medicines ??? Take uftt-flj-nbygjpv and prescription medicines only as told by [...] 12/03/2008 Document Revised: 10/05/2017 Document Reviewed: 10/05/2017 [employer] Interactive Patient Education ? 2019 [employer]. Outpatient Surgery, Adult, Care After These instructions [...] and water are not available, use hand 8th grade teacher. ? Change your dressing as told by [...] or a bad smell. Medicines ??? Take exlb-lly-tfvqsbr and prescription medicines only as told by [...] 03/06/2017 Document Revised: 06/22/2018 Document Reviewed: 03/06/2017 [employer] Interactive Patient Education ? 2019 [employer]. documented in this encounter Plan of Treatment Not on file documented as of this encounter Visit Diagnoses Not on filedocumented in this encounter Care Teams Regional Forester Relationship Specialty Start Date End Date Tyrell Magana MD [address] [place] [address] PCP - General Family Medicine 11/15/23 documented as of this encounter
--- OUTSIDE RECORDS SUMMARY | 2025-08-05 09:29 | XMS_ITS | Encounter Summary ---
Author Organization [employer] ([place], [place], [place], [place]) Address [address] [place] [address] Care Team Providers Care Windows System Admin Name Role Phone Tyrell Magana MD Primary Care Provider +1- [phone] Encounter Details Date Type Department Care Team (Late st Contact Info) Description 10/10/2019 Transcribed Document [facility] Family Medicine [address] [place] [address] ProviderBen MD [address] [place] [address] 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 Tobacco Use Types [...] - Historical ProviderMD - 10/10/2019 3:15 PM ROUNDHOUSE WORKER [facility] [place] [address] [place] DC :1985 [...] Appointment has been made JESICA SCHEDULED Where: [address] [place] [address] [place] (1) Medications What How Much When Instructions Next Dose acetaminophen-hydrocodone (Poseyville 7.5 mg-325 mg oral tablet) 1 Tablet(s) Oral Every 6 Hours as needed for for pain Duration: 3 Day(s) Printed Prescription DULoxetine (Cymbalta 60 mg oral delayed release capsule) Oral Every Day DULoxetine (Cymbalta) 60 Milligram(s) Oral Every Day ethinyl estradiol-norethindrone (Taytulla 1 mg-20 mcg oral capsule) Oral Every Day fluticasone nasal (Childrens Flonase 50 mcg/ inh nasal spray) 1 [place](s) Nasal Every Day glycopyrrolate 1 Milligram(s) Oral [...] including vitamins, herbs, eye drops, creams, and fbls-lhn-wqybkey medicines. ??? Any problems you or family [...] 11/11/2001 Document Revised: 04/21/2017 Document Reviewed: 05/28/2016 [employer] Interactive Patient Education ?? 2019 [employer]. Lithotripsy, Care After This sheet gives [...] these instructions at home: Medicines ??? Take kpuu-qeg-ajgzyjo and prescription medicines only as told by [...] 12/03/2008 Document Revised: 10/05/2017 Document Reviewed: 10/05/2017 [employer] Interactive Patient Education ?? 2019 [employer]. Outpatient Surgery, Adult, Care After These [...] and water are not available, use hand serging machine operator. ? Change your dressing as told [...] or a bad smell. Medicines ??? Take cxbp-pri-xahsppq and prescription medicines only as told by [...] 03/06/2017 Document Revised: 06/22/2018 Document Reviewed: 03/06/2017 [employer] Interactive Patient Education ?? 2019 [employer]. acetaminophen and hydrocodone (a SEET a MIN oh fen and mya droe KOE done) Hycet, Lorcet, Poseyville, Verdrocet, Vicodin, Xodol, Zamicet What is the [...] may report side effects to FDA at 1-757-FZF-6052. What other drugs will affect acetaminophen and [...] affect acetaminophen and hydrocodone, including prescription and yirn-lnx-aosrxnq medicines, vitamins, and herbal products. Not all [...] to ensure that the information provided by [employer]. ('YourPOV.TVtum') is accurate, up-to-date, and complete, but no guarantee is made to that effect. Drug information contained herein may be time sensitive. [employer] information has been compiled for use by healthcare practitioners and consumers in the [place] and therefore [employer] does not warrant that uses outside of the [place] are appropriate, unless specifically indicated otherwise. [employer]'s drug information does not endorse drugs, diagnose patients or recommend therapy. [employer] drug information is an informational resource designed [...] effective or appropriate for any given patient. [employer] does not assume any responsibility for any aspect of healthcare administered with the aid of information [employer] provides. The information contained herein is not intended to cover all possible uses, directions, precautions, warnings, drug interactions, allergic reactions, or adverse effects. If you have questions about the drugs you are taking, check with your doctor, nurse or pharmacist. Copyright 8940-6691 [employer]. Version: 15.02. Revision Date: 10/02/2018. Emergency Awareness [...] Assistance with quitting is available by contacting 4-833-GIFG-NOW. This is a free resource providing counseling, [...] was given the opportunity to ask questions. Patient/Journey Lineman Name: Patient/Journey Lineman Signature: Relationship to Patient: Clinician/Hospital Journey Lineman Signature: Date: documented in this encounter Plan of Treatment Not on file documented as of this encounter Visit Diagnoses Not on filedocumented in this encounter Care Teams Windows System Admin Relationship Specialty Start Date End Date Tyrell Magana MD [address] [facility] [address] [place] [id number] PCP - General Family Medicine 11/15/23 documented as of this encounter
--- OUTSIDE RECORDS SUMMARY | 2025-08-05 09:29 | XMS_ITS | Encounter Summary ---
Author Organization [employer] ([place], [place], [place], [place]) Address [address] [place] [address] Care Team Providers Care Local Tanker Truck Driver Name Role Phone Tyrell Magana MD Primary Care Provider +1- [phone] Encounter Details Date Type Department Care Team (Late st Contact Info) Description 05/14/2021 Transcribed Document [facility] [place] [facility] [place] [address] ProviderBen MD [address] [place] [address] 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 Tobacco Use Types [...] Source : Measured Height Entry Format : Whitman Height, Feet : 0 ft(Converted to: 0 cm, 0 Inch) Height, Inches : 66 Inch(Converted to: 5 ft 6 Inch, 167.64 cm) Clinical Height : 167.64 cm Weight Source : Standing scale Weight Entry Format : Whitman Clinical Dosing Weight : 104.32 kg Weight, Pounds : 229 lb Weight, Ounces : 8 oz Body Surface Area (BSA) : 2.12 m2 Body Mass Index : 37.1 kg/m2 (HI) [place] Body Weight : 59 kg Chastity Erazo, Nurse Customer Advocacy Manager - 05/15/2021 7:15 EDT Health Histories Smoking Status : Never (less than 100 in lifetime; none in last 30 days) Smokeless Tobacco Status : Never Implant/Device Type, Ballroom Dance Instructor and Model : bladder sling Caesar Patten [...] Caesar Patten Rn - 05/14/2021 17:20 EDT Grant Suicide Severity Rating Scale (C-SSRS) CSSRS Past [...] 05/14/2021 17:20 EDT General Info Support Person/Patient Health Manager : Yes Support Person/Pt Rep Name : Jason Dc - Support Person/Pt Rep Contact Information : [phone] Want Family/Rep/Phys Notified of Admit : No Emergency Contact #1 : ` Emergency Contact #1 Phone Number : ` Emergency Contact #1 Relationship : ` Emergency Contact #2 : ` Emergency Contact #2 Phone Number : ` Emergency Contact #2 Relationship : ` Information Obtained From : Patient Primary Language : Micronesian Preferred Communication Mode : Verbal Communication Barrier : None Brand Director Needed : No Caesar Patten Rn - 05/14/2021 17:20 EDT Oprter Scale Porter Sensory Perception : No impairment [...] Level Score : 4 Chastity Erazo, Nurse Customer Advocacy Manager - 05/15/2021 7:15 EDT Hx of Obstructive [...] on filedocumented in this encounter Care Teams Local Tanker Truck Driver Relationship Specialty Start Date End Date Tyrell Magana MD [address] [place] [address] PCP - General Family Medicine 11/15/23 documented as of this encounter
--- OUTSIDE RECORDS SUMMARY | 2025-08-05 09:29 | XMS_ITS | Encounter Summary ---
Author Organization [employer] ([place], [place], [place], [place]) Address [address] [place] [address] Care Team Providers Care Snuff Grinder Name Role Phone Tyrell Magana MD Primary Care Provider +1- [phone] Encounter Details Date Type Department Care Team (Late st Contact Info) Description 05/15/2021 Transcribed Document [facility] [place] [facility] [place] [address] ProviderBen MD [address] [place] [address] 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 Tobacco Use Types [...] Historical ProviderMD - 05/15/2021 10:30 AM CDT [facility] [place] [address] [place] DC :1985 Visit [...] Follow up appointment is scheduled at the [place] location for 05/28/21 at 1:45pm. Please arrive to this appointment at least 20 minutes early for scheduled KUB X-Ray. Where: [address] [place] [address]- Medications What How Much When Instructions Next Dose cyclobenzaprine (Flexeril) 5 Milligram(s) Oral Two Times A Day as needed for Facet Joint Syndrome busPIRone (BuSpar) 7.5 Milligram(s) Oral Two Times A Day ethinyl estradiol-norethindrone (Junel 1.5/ 30 oral tablet) 1 Tablet(s) Oral Every Day fluticasone nasal (Flonase) 1 [place](s) Nostrils Both Every Day as needed for [...] and water are not available, use hand handstitching machine collar feller. ? Change your dressing as told by [...] or a bad smell. Medicines ??? Take ucvr-baz-axyfuco and prescription medicines only as told by [...] provider. Document Revised: 02/12/2019 Document Reviewed: 03/06/2017 [employer] Patient Education ?? 2020 [employer]. General Anesthesia, Adult, Care After This [...] activities are safe for you. ??? Take lszn-nth-rhmvbnu and prescription medicines only as told by [...] provider. Document Revised: 11/17/2018 Document Reviewed: 06/30/2018 [email or web address] Patient Education ?? 2020 [employer]. Lithotripsy, Care After This sheet gives you [...] these instructions at home: Medicines ??? Take mbrf-ywy-gklzcck and prescription medicines only as told by [...] provider. Document Revised: 02/25/2020 Document Reviewed: 10/05/2017 [email or web address] Patient Education ?? 2020 [employer]. Emergency Awareness and Preventative Care STROKE [...] Assistance with quitting is available by contacting 9-410-HJBP-NOW. This is a free resource providing counseling, [...] was given the opportunity to ask questions. Patient/Supply Manager Name: Patient/Supply Manager Signature: Relationship to Patient: Clinician/Hospital Supply Manager Signature: Date: Electronically signed by Segundo, [facility] Conversion Forest Landscape Ecology Professor Cerner at 03/13/2023 7:03 PM CDT documented in this encounter Plan of Treatment Not on file documented as of this encounter Visit Diagnoses Not on filedocumented in this encounter Care Teams Snuff Grinder Relationship Specialty Start Date End Date Tyrell Magana MD [address] [place] [id number] PCP - General Family Medicine 11/15/23 documented as of this encounter
--- OUTSIDE RECORDS SUMMARY | 2025-08-05 09:29 | XMS_ITS | Encounter Summary ---
Author Organization [employer] ([place], [place], [place], [place]) Address [address] [place] [address] Care Team Providers Care Director Of Enterprise Architecture Name Role Phone Tyrell Magana MD Primary Care Provider +1- [phone] Encounter Details Date Type Department Care Team (Late st Contact Info) Description 05/15/2021 Transcribed Document [facility] [place] [address] ProviderBen MD [address] [place] [address] 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 Tobacco Use Types Packs/Day [...] with instructions for outpatient followup with KUB. /[id number] Lincoln Dey MD JPatriciaJ/AQ / JDJ / MODL /[id number] documented in this encounter Plan of Treatment Not on file documented as of this encounter Visit Diagnoses Not on filedocumented in this encounter Care Teams Director Of Enterprise Architecture Relationship Specialty Start Date End Date Tyrell Magana MD [address] [place] [address] PCP - General Family Medicine 11/15/23 documented as of this encounter
--- OUTSIDE RECORDS SUMMARY | 2025-08-05 09:29 | XMS_ITS | Encounter Summary ---
Author Organization [employer] ([place], [place], [place], [place]) Address [address] [place] [address] Care Team Providers Care Fitness Coach Name Role Phone Tyrell Magana MD Primary Care Provider +1- [phone] Encounter Details Date Type Department Care Team (Late st Contact Info) Description 05/15/2021 Transcribed Document [facility] [place] [facility] [place] [address] ProviderBen MD [address] [place] [address] 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 Tobacco Use Types [...] these instructions at home: Medicines ??? Take ctbh-yib-ybwwaee and prescription medicines only as told by [...] provider. Document Revised: 02/25/2020 Document Reviewed: 10/05/2017 Dr [employer] Patient Education ? 2019 [employer]. Pharmacology General Anesthesia, Adult, Care After This [...] activities are safe for you. ??? Take elpx-fza-msxessl and prescription medicines only as told by [...] provider. Document Revised: 11/17/2018 Document Reviewed: 06/30/2018 [employer] Patient Education ? 2020 Dr Lal [employer] Procedures Outpatient Surgery, Adult, Care After [...] and water are not available, use hand correctional officer sergeant. ? Change your dressing as told by [...] or a bad smell. Medicines ??? Take wjeq-ndr-ivamcyk and prescription medicines only as told by [...] Reviewed: 03/06/2017 [employer] Patient Education ? 2019 Dr Lal [employer] documented in this encounter Plan of Treatment Not on file documented as of this encounter Visit Diagnoses Not on filedocumented in this encounter Care Teams Fitness Coach Relationship Specialty Start Date End Date Tyrell Magana MD [address] [place] [address] PCP - General Family Medicine 11/15/23 documented as of this encounter
--- OUTSIDE RECORDS SUMMARY | 2025-08-05 09:29 | XMS_ITS | Encounter Summary ---
Author Organization [facility] Address [address] [place] [address] Care Team Providers Care Ruby On Rails Web Developer Name Role Phone Oriana Murica Primary Care Provider Encounter Details Date Type Department Care Team (Late st Contact Info) Description 12/13/2024 Lab Requisition [facility] [address] [place] [address] Kiel Alexander MD [address] [place] [address] Localized swelling, mass and lump, unspecified Social [...] EST) Case Report Sugical Pathology Consult Case: [id number] Authorizing Provider: Kiel Alexander MD Collected: 12/13/2024 1326 Ordering Location: [facility] Received: 12/13/2024 1327 Pathologist: Gaviota Crooks MD Specimen: Soft Tissue, [id number] 12/13/2024 4:12 PM EST [facility] Final Diagnosis SOFT TISSUE, LEFT DORSAL WRIST MASS, EXCISION (OUTSIDE SLIDES, COLLECTED 12/27/24): - LYMPH NODE AND FIBROADIPOSE TISSUE WITH NO SIGNIFICANT PATHOLOGIC ABNORMALITY. - NEGATIVE FOR MALIGNANCY IN SAMPLED TISSUE. 12/13/2024 4:12 PM EST [facility] at 1612 EST Clinical Information R22.9 - Localized swelling, mass and lump, unspecified [ICD-10-CM] 12/13/2024 4:12 PM EST [facility] Gross Description A. [id number] Received along with a corresponding pathology report from [facility] are 6 slides and 1 block labeled outside case: [id number] collected on 11/23/2024. 12/13/2024 4:12 PM EST [facility] Note: A resident was involved in the service. I attest I examined the relevant preparations for the specimens and confirmed the diagnosis or interpretation. 12/13/2024 4:12 PM EST [facility] Tissue Soft tissue / Unknown 12/13/2024 1:26 PM EST 12/13/2024 1:27 PM EST us Kiel Alexander MD LAB PATHOLOGY ORDERABLES Final Result [facility] [address] [place] [address] documented in this encounter Visit Diagnoses Diagnosis Localized swelling, mass and lump, unspecified documented in this encounter Care Teams Ruby On Rails Web Developer Relationship Specialty Start Date End Date Oriana Murcia PA [address] [place] [address] PCP - General 04/10/21 documented as of this encounter
--- OUTSIDE RECORDS SUMMARY | 2025-08-05 09:29 | XMS_ITS | Encounter Summary ---
Author Organization [employer] ([place], [place], [place], [place]) Address [address] [place] [address] Care Team Providers Care Credit Card Specialist Name Role Phone Tyrell Magana MD Primary Care Provider +1- [phone] Encounter Details Date Type Department Care Team (Late st Contact Info) Description 10/10/2019 Transcribed Document [facility] [place] [facility] [place] [address] ProviderBen MD [address] [place] [address] 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 Tobacco Use Types [...] - Historical ProviderMD - 10/10/2019 11:38 AM JET BLADE POLISHER Patient: CELINE DC Age: 34 years Sex: [...] Childrens Flonase 50 mcg/inh nasal spray: 1 [place], Nasal, Daily, 0 Refill(s) Cymbalta 60 mg [...] Childrens Flonase 50 mcg/inh nasal spray 1 [place], Nasal, Daily Cymbalta 60 mg, Oral, Daily [...] Problems Urinary tract infection / SNOMED CT 534579143 / Confirmed Sinusitis / SNOMED CT 51715726 / Confirmed Renal calculus / SNOMED CT 791895685 / Confirmed Migraine / SNOMED CT 45007306 / Confirmed Insulin resistance / SNOMED CT 7718239732 / Confirmed High blood pressure / SNOMED CT 18254024 / Confirmed 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 Integumentary: Warm, Dry, [place]. Neurologic: Alert, Oriented. Psychiatric: Cooperative, Appropriate mood [...] on filedocumented in this encounter Care Teams Credit Card Specialist Relationship Specialty Start Date End Date Tyrell Magana MD [address] [place] [address] PCP - General Family Medicine 11/15/23 documented as of this encounter
--- OUTSIDE RECORDS SUMMARY | 2025-08-05 09:29 | XMS_ITS | Encounter Summary ---
Author Organization [facility] Address [address] [place] [address] Care Team Providers Care Cmm Inspector Name Role Phone Dustin Gomez MD Primary [...] on filedocumented in this encounter Care Teams Cmm Inspector Relationship Specialty Start Date End Date Dustin Gomez MD PCP - General 08/02/08 02/11/14 Vicki Villavicencio [place] PCP - General Family Medicine 02/12/14 12/30/17 documented as of this encounter
--- OUTSIDE RECORDS SUMMARY | 2025-08-05 09:29 | XMS_ITS | Encounter Summary ---
Author Organization [employer] ([place], [place], [place], [place]) Address [address] [place] [address] Care Team Providers Care Copra Sampler Name Role Phone Tyrell Magana MD Primary Care Provider +1- [phone] Encounter Details Date Type Department Care Team (Late st Contact Info) Description 10/09/2019 Transcribed Document [facility] [place] [address] [place] [address] ProviderBen MD [address] [place] [address] 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 Tobacco Use Types [...] - Historical ProviderMD - 10/09/2019 6:09 PM PHONOGRAPH CARTRIDGE ASSEMBLER PAT Adult Entered On: 10/09/2019 18:11 EST Performed On: 10/09/2019 18:09 EST by Zainab Morales, LESLIE Pain Assessment Pain Assessment : Initial assessment Pain Scale Used : 0-10 Scale Location : Flank, left JILLIANGILBERTO RN - 10/10/2019 10:57 EST Height and Weight, Clinical Dosing Height Source : Measured Height Entry Format : [place] Height, Inches : 67 Inch(Converted to: 5 ft 7 Inch, 170.18 cm) Clinical Height : 170.18 cm Weight Source : Standing scale Weight Entry Format : [place] Clinical Dosing Weight : 101.36 kg Weight, Pounds : 223 lb Body Surface Area (BSA) : 2.12 m2 Body Mass Index : 35 kg/m2 (HI) [place] Body Weight : 61 kg GILBERTO WALSH [...] Zainab Morales RN - 10/09/2019 18:09 EST [place] Suicide Severity Rating Scale (C-SSRS) CSSRS Past [...] 10/09/2019 18:09 EST General Info Support Person/Patient Vibrator Operator : Yes Support Person/Pt Rep Name : Moy [phone] Rajinder Family/Rep/Phys Notified of Admit : No Information Obtained From : Patient Primary Language : Salvadorean Preferred Communication Mode : Verbal Communication Barrier [...] on filedocumented in this encounter Care Teams Copra Sampler Relationship Specialty Start Date End Date Tyrell Magana MD [address] [place] [address] PCP - General Family Medicine 11/15/23 documented as of this encounter
--- OUTSIDE RECORDS SUMMARY | 2025-08-05 09:29 | XMS_ITS | Encounter Summary ---
Author Organization [facility] Address [address] [place] [address] Care Team Providers Care Flight Crew Scheduler Name Role Phone Dustin Gomez MD Primary Care Provider Unavailabl e Doctor, Vicki Primary Care Provider Unavailabl e Encounter Details Date Type Department Care Team (Late st Contact Info) Description 08/14/2007 Historical Encounter Global Leann Bond MD [address] [facility] [place] [address] 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 Tobacco Use Types [...] on filedocumented in this encounter Care Teams Flight Crew Scheduler Relationship Specialty Start Date End Date Dustin Gomez MD PCP - General 08/02/08 02/11/14 Vicki Villavicencio [place] PCP - General Family Medicine 02/12/14 12/30/17 documented as of this encounter
--- OUTSIDE RECORDS SUMMARY | 2025-08-05 09:29 | XMS_ITS | Encounter Summary ---
Author Organization [employer] ([place], [place], [place], [place]) Address [address] [place] [address] Care Team Providers Care Marketing Copywriter Name Role Phone Tyrell Magana MD Primary Care Provider +1- [phone] Encounter Details Date Type Department Care Team [...] Date Surinder rded Speak language other than Venezuelan at home Not on file 12/16/2023 Want [...] on filedocumented in this encounter Care Teams Marketing Copywriter Relationship Specialty Start Date End Date Tyrell Magana MD [address] [place] [address] PCP - General Family Medicine 11/15/23 documented as of this encounter
--- OUTSIDE RECORDS SUMMARY | 2025-08-05 09:29 | XMS_ITS | Clinical Summary ---
Author Organization [employer] ([place], [place], [place], [place]) Address [address] [place] [address] Care Team Providers Care Managing Jeweler Name Role Phone Tyrell Magana MD Primary Care Provider +1- [phone] Allergies Active Allergy Reactions Criticality Noted Date [...] 3 Active zafirlukast (Accolate) 20 MG tablet Active DULoxetine (CYMBALTA) 30 MG capsule Take [...] EDT - 06/12/2025 11:19 AM EDT Surgery [facility] Operating Room [address] [place] [address] Vabihav Chester MD (LEFT HIP ARTHROSCOPIC BURSECTOMY, POSSIBLE ABDUCTOR REPAIR) 06/12/2025 8:21 AM EDT Anesthesia Event [facility] Operating Room [address] [place] [address] Valeri Phillips MD Simpson, Kristen, CRNA 06/12/2025 6:34 AM EDT - 06/12/2025 11:27 AM EDT Hospital Encounter [facility] Operating Room [address] [place] [address] Vaibhav Chester MD Hip abductor tendinitis, left (Primary Dx) Discharge Disposition: Home or Self Care 06/12/2025 Travel 05/06/2025 12:59 PM EDT Anesthesia Event [facility] Surgery Department [address] [place] [address] Chery Gill CRNA Booker, Philip Craig, MD 05/06/2025 12:00 PM EDT - 05/06/2025 1:52 PM EDT Surgery [facility] Surgery Department [address] [place] [address] Justice Miller MD Diagnostic LAPAROSCOPY, ENDOMETRIAL ABLATION 05/06/2025 9:19 AM EDT - 05/06/2025 3:19 PM EDT Hospital Encounter [facility] Surgery Department [address] [place] [address] Justice Miller MD Excessive or frequent menstruation; Encounter for gynecological examination with abnormal finding; Excessive, frequent and irregular menstruation; Secondary dysmenorrhea Discharge Disposition: Home or Self Care 05/06/2025 Travel from Last 3 Months 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 [...] Date Surinder rded Speak language other than Taiwanese at home Not on file 12/16/2023 Want [...] Tdap) 08/14/2008 08/14/1998 Breast Cancer Screening 2024 Hemoglobin A1C 05/06/2025 COVID-19 VACCINE ( - 2024-2 6 season) 2025 06/22/2022, 10/20/2021, 01/16/2021, Additional history exists Influenza Vaccine (#1) 2025 08/28/2017 Tobacco Cessation Counseling and Screening (12+) 06/12/2026 06/12/2025 Medical Devices Implanted Type Area Bicycle Repairman Device Identifier Shelf Expiration Date Model / Serial / Lot [place] Knotilus 2.3mm [id number] - [id number] Implanted:Qty: 2 on 06/12/2025 by Vaibhav Chester MD at [facility] IMPLANTS Left: Hip TUNG:TUNG ENDOSCOPY 12/28/2029 [id number] / / [id number] [place] Peek Knotless Sp 4.75mm [id number] - [id number] Implanted:Qty: 1 on 06/12/2025 by Vaibhav Chester MD at [facility] IMPLANTS Left: Hip TUNG:TUNG ENDOSCOPY 02/01/2027 [id number] / / [id number] Procedures Procedure Name Priority Date/Time Associated Diagnosis Comments NOVA GLUCOSE POC Routine 06/12/2025 10:5 8 AM EDT NOVA GLUCOSE POC Routine 06/12/2025 9:49 AM EDT ANESTHESIA INTUBATION Routine 06/12/2025 8:33 AM EDT NJ EXCISION TROCHANTERIC BURSA/CALCIFICATION 06/12/2025 8:21 AM EDT [...] ANESTHESIA INTUBATION Routine 05/06/2025 1:06 PM EDT NJ HYSTEROSCOPY ENDOMETRIAL ABLATION 05/06/2025 12:58 PM EDT Excessive or frequent menstruation Encounter for gynecological examination with abnormal finding Excessive, frequent and irregular menstruation Secondary dysmenorrhea Case Notes This case needs to be Robotic per TEJAS Love [place] LAPS ABD PRTM&OMENTUM DX W/WO SPEC BR/WA [...] - 110 mg/dL 06/12/2025 11:00 AM EDT [facility] Comment: In the event of poor peripheral blood flow, venous or arterial blood should be used due to the potential of erroneous results. Protocols Followed Dairy Feed Mixing Operator [id number] 06/12/2025 11:00 AM EDT [facility] Blood WHOLE BLOOD / Unknown 06/12/2025 10:58 AM EDT 06/12/2025 11:00 AM EDT Narrative [facility] - 06/12/2025 11:00 AM EDT Dairy Feed Mixing Operator ID is - [id number] us Vaibhav Chester MD POINT OF CARE TEST ORDERAB LES Final Result Performing Organization Address City/State/[facility] Co de Phone Number [facility] [address] [place] [address] * AN SINGLE LUMEN INTUBATION (06/12/2025 8:33 [...] Tissue Exam (05/06/2025 1:43 PM EDT) Pathologist [facility] AP RESULT See Note: [facility] Comment: [facility] [address] [place] [address] or [phone] Heath Pruett M.D., Puzzle Assembler PATIENT NAME LABORATORY NO. CELINE BAUTISTA. [id number] AGE SEX SSN CLIENT REF # [place] [id number] 1985 F [id number] [address] REQUESTING Gustavo [place] [address] JUSTICE MILLER DATE COLLECTED DATE RECEIVED DATE [...] rendered by Ailyn Siddiqui M.D., Liyah at [facility], [address] [place] [address]. GROSS DESCRIPTION: Labeled endometrial curettings consists of multiple pieces of rocha-brown soft tissue measuring 3.0 x 2.5 x 0.6 cm in aggregate. Specimens are filtered and submitted entirely in 3 blocks. BKO REVIEWED, DIAGNOSED AND ELECTRONICALLY SIGNED BY: Ailyn Siddiqui M.D., Liyah CPT CODES: [id number] Tissue SPECIMEN FROM ENDOMETRIUM OBTAINED BY CURETTAGE / Unknown 05/06/2025 1:43 PM EDT Justice Miller MD PATHOLOGY/CYTOLOGY ORDERABLES Final Result Performing Organization Address City/State/[facility] Co de Phone Number [facility] [address] [place] [address] * AN SINGLE LUMEN INTUBATION (05/06/2025 1:06 [...] 1 Number of other approaches attempted: 0 [facility] ANESTHESIA ORDERABLES Final Result * EKG-SCANNED (05/06/2025) Narrative 05/06/2025 Ordered by an unspecified provider. Default Scanning Provider SCAN ORDERS Final Result from Last 3 Months Insurance BLUE CROSS/BLUE SHIELD Advance Directives For more information, please contact: [phone] * Full Code (Latest Code Status on File) Date Activated Date Inactivated Comments 06/12/2025 6:02 AM 06/12/2025 12:28 PM * Full Code Date Activated Date Inactivated Comments 11/17/2023 11:34 AM 11/17/2023 6:14 PM Care Teams Managing Jeweler Relationship Specialty Start Date End Date Tyrell Magana MD [address] [place] [address] PCP - General Family Medicine 11/15/23
--- OUTSIDE RECORDS SUMMARY | 2025-08-05 09:29 | XMS_ITS | Encounter Summary ---
Author Organization [email or web address] ([place], [place], [place], [place]) Address [address] [place] [address] Care Team Providers Care Laminating Machine Operator Helper Name Role Phone Tyrell Magana MD Primary Care Provider +1- [phone] Encounter Details Date Type Department Care Team (Late st Contact Info) Description 10/10/2019 Transcribed Document [facility] [place] Family Medicine [address] [place] [address] ProviderBen MD [address] [place] [address] 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 Tobacco Use Types Packs/Day [...] - Historical ProviderMD - 10/10/2019 1:20 PM ASSOCIATE TEACHER DATE OF PROCEDURE: 10/10/2019 SURGEON: Lincoln Dey MD PREOPERATIVE DIAGNOSIS: Left ureteral stone. POSTOPERATIVE DIAGNOSIS: Left ureteral stone with stone manipulation to the renal pelvis. PROCEDURES PERFORMED: 1. Cystourethroscopy. 2. Left ureteral stent placement. 3. Left ureteral stone manipulation. 4. Left extracorporeal shock wave lithotripsy. ANESTHESIA: General. BLOOD LOSS: None. COMPLICATIONS: None. SPECIMENS: None. OPERATIVE FINDINGS: 1. A 6-Greenlandic x 24 cm stent placed with good [...] within the mid to proximal ureter. A 6-Greenlandic x 24 cm ureteral stent was used [...] with instruction for outpatient followup and KUB. /[id number] MD GERHARD Garcia/FLOWER / GERHARD / MODL /[id number] Electronically signed by Segundo, [facility] Julio Solid Waste Disposal Manager Cerner at 03/13/2023 7:06 PM CDT documented in this encounter Plan of Treatment Not on file documented as of this encounter Visit Diagnoses Not on filedocumented in this encounter Care Teams Laminating Machine Operator Helper Relationship Specialty Start Date End Date Tyrell Magana MD [address] [place] [address] PCP - General Family Medicine 11/15/23 documented as of this encounter
--- OUTSIDE RECORDS SUMMARY | 2025-08-05 09:29 | XMS_ITS | Encounter Summary ---
Author Organization [employer] ([place], [place], [place], [place]) Address [address] [place] [address] Care Team Providers Care Intravenous Therapy Nurse Name Role Phone Tyrell Magana MD Primary Care Provider +1- [phone] Encounter Details Date Type Department Care Team (Late st Contact Info) Description 10/10/2019 Transcribed Document [facility] [place] [address] [place] [address] ProviderBen MD [address] [place] [address] 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 Tobacco Use Types [...] - Ben ProviderMD - 10/10/2019 12:22 PM SCRAP MATERIALS BUYER [facility] Main OR IntraOp Summary Primary Physician: JOMAR JENKINS MD Finalized Date/Time: 10/11/19 12:49:48 Pt. Name: CELINE MARKS /Sex: 1985 Female Med Rec #: [id number] Physician: JOMAR JENKINS MD Financial #: [id number] Pt. Type: O Room/Bed: /1 Admit/Disch: 10/10/19 09:16:00 - 10/10/19 15:22:00 Institution: [facility] IntraOp Case Attendance Entry 1 Entry 2 Entry 3 Case Attendee JOMAR JENKINS MD SHEWCRAFT, SUZANNE K, CHALKLEY, JUDSON E, WATER POLLUTION SCIENTIST, CORRECTIONAL MAINTENANCE TECHNICIAN -ANS Role Performed Surgeon/Proceduralist, CORRECTIONAL MAINTENANCE TECHNICIAN/Nurse Director Employment Anesthesiologist First Time In 10/10/19 12:05:00 10/10/19 [...] Attendee REED MUNOZ, Chastity Villegas Madden, Jerrild Integrative Medicine Physician Role Performed Division Sales Manager, Second Scrub, First Manual Equipment Mechanic Time In 10/10/19 12:05:00 10/10/19 12:05:00 10/10/19 [...] Case Attendee Kiley Scott JAMIE MONK APRN, CORRECTIONAL MAINTENANCE TECHNICIAN Role Performed Division Sales Manager, First CORRECTIONAL MAINTENANCE TECHNICIAN/Nurse Director Employment Time In 10/10/19 12:45:00 10/10/19 12:05:00 Time Out 10/10/19 13:35:00 10/10/19 12:33:00 Procedure Extracorporeal Ureteral Stent Insertion Shockwave Lithotripsy(Left) Other Attendee Superficial Wound Closed By: Last Modified By: Kiley Scott RN Parker, Katherine, RN 10/10/19 13:38:32 10/10/19 13:16:04 [facility] IntraOp Case Attendance Audit 10/10/19 13:38:32 Production Painter: DANY Modifier: PARKEK 1 <+> Time Out [...] <*> Procedure Ureteral Stent Insertion 10/10/19 13:16:04 Production Painter: DANY Modifier: PARKEK 1 <*> Case Attendee JOMAR JENKINS MD 1 <*> Role Performed Surgeon/Proceduralist, First 1 <*> Time In 10/10/19 12:05:00 1 <*> Procedure Extracorporeal Shockwave Lithotripsy(Left), Ureteral Stent Insertion 1 <*> Superficial Wound Closed By: JOMAR JENKINS MD 2 <*> Case Attendee ALMA ROSA GARZA APRN, CORRECTIONAL MAINTENANCE TECHNICIAN 2 <*> Role Performed CORRECTIONAL MAINTENANCE TECHNICIAN/Nurse Director Employment 2 <*> Time In 10/10/19 12:05:00 2 <*> Procedure Extracorporeal Shockwave Lithotripsy(Left), Ureteral Stent Insertion 3 <*> Case Attendee KIMMY RILEY MD-ANS 3 <*> Role Performed Anesthesiologist 3 <*> Time In 10/10/19 12:05:00 3 <*> Procedure Extracorporeal Shockwave Lithotripsy(Left), Ureteral Stent Insertion 3 <*> Other Attendee SUPERVISIOR 4 <*> Case Attendee REED MUNOZ, RN 4 <*> Role Performed Division Sales Manager, Second 4 <*> Time In 10/10/19 12:05:00 4 <*> Procedure Extracorporeal Shockwave Lithotripsy(Left), Ureteral Stent Insertion 4 <*> Other Attendee RELIEF 5 <*> Case Attendee Chastity Gray, Integrative Medicine Physician 5 <*> Role Performed Scrub, First 5 <*> Time In 10/10/19 12:05:00 5 <*> Time Out 10/10/19 12:39:00 5 <*> Procedure Ureteral Stent Insertion 6 <*> Case Attendee Issa Perez 6 <*> Role Performed Manual Equipment Mechanic 6 <*> Time In 10/10/19 12:05:00 6 <*> Procedure Extracorporeal Shockwave Lithotripsy(Left), Ureteral Stent Insertion 7 <*> Case Attendee Kiley Scott, LESLIE 7 <*> Role Performed Division Sales Manager, First 7 <*> Time In 10/10/19 12:45:00 7 <*> Procedure Extracorporeal Shockwave Lithotripsy(Left) 8 <+> Case Attendee 8 <+> Role Performed 8 <*> Time In 10/10/19 12:05:00 8 <*> Time Out 10/10/19 13:03:00 8 <+> Procedure 10/10/19 13:08:18 Production Painter: DANY Modifier: DANY 1 <*> Procedure Extracorporeal [...] Lithotripsy(Left) <+> 8 Time In 10/10/19 13:03:21 Production Painter: DANY Modifier: PARKEK 1 <*> Procedure Extracorporeal [...] Extracorporeal Shockwave Lithotripsy(Left) <+> 8 Time Out [facility] IntraOp Case Times Entry 1 Patient In Room Time 10/10/19 12:05:00 Out Room Time 10/10/19 13:35:00 Anesthesia Start Time 10/10/19 12:05:00 Stop Time 10/10/19 13:35:00 Surgery / Procedure Times Start Time 10/10/19 12:22:00 Stop Time 10/10/19 13:29:00 Last Modified By: Kiley Scott RN 10/10/19 13:29:14 [facility] IntraOp Case Times Audit 10/10/19 13:38:31 Production Painter: DANY Modifier: PARKEK <+> 1 Out Room Time <+> 1 Stop Time 10/10/19 13:29:14 Production Painter: GERALDOEK Modifier: PARKEK <+> 1 Stop Time [facility] IntraOp Communication Entry 1 Communication To Family/Significant other Comment START OF PROCEDURES Communication By REED MUNOZ RN Date and Time 10/10/19 12:24:00 Last Modified By: Kiley Scott RN 10/10/19 12:55:34 [facility] IntraOp Departure from OR Entry 1 Integumentary Assessment Integumentary WDL Assessment WDL Transfer/Handoff Transfer to PACU Phase I Handoff Method Bedside/Face to face, Phone call Handoff Reported to LC NORWOOD RN Post-op Transport Stretcher/Gurney Via Patient Transport ALMA ROSA GARZA, Accompanied by [place] JEROME, Kiley Scott RN Last Modified By: Kiley Scott RN 10/10/19 12:56:37 [facility] IntraOp Dressing and Packing Entry 1 Type Dressing Location OPSITE Wound Dressing Item Other Applied By JOMAR JENKINS MD Other Comments TEGADERM Last Modified By: Kiley Scott RN 10/10/19 12:57:30 [facility] IntraOp Fire Risk Assessment Entry 1 Fire [...] Modified By: Kiley Scott RN 10/10/19 12:57:49 [facility] IntraOp General Case Superintendent Ammunition Storage 1 Case Information OR OR 19 [facility] Case Level 1 Room Verified Yes Wound Class II - Clean-Contaminated Specialty SN Urology Anesthesia Type General ASA Class 2 Diagnosis Preop Diagnosis LEFT RENAL STONE Postop Same As Preop Yes Postop Diagnosis LEFT RENAL STONE Last Modified By: Kiley Scott RN 10/10/19 12:58:28 [facility] IntraOp General Case Data Audit 10/10/19 13:26:41 Production Painter: DANY Modifier: DANY 1 <*> Preop Diagnosis RIGHT RENAL STONE 1 <*> Postop Diagnosis RIGHT RENAL STONE [facility] IntraOp Implant Log Entry 1 Type Implant (Synthetic) Implant Log Implant Type Other Implant STENT URET BRAID + Identification [id number] Description Implant Quantity 1 Implant Site OPSITE Implant [id number] Identification Lot Number Implant [place] Identification Sci:Urology/Gynecology System Architect Name: Implant [id number] Identification Catalog Number Implant Size 6 FR X 24 CM Implant Has an Yes Expiration Date Tissue Implant Last Modified By: Kiley Scott RN 10/10/19 13:21:15 [facility] IntraOp Intraoperative Assessment Entry 1 Valid History / Yes Physical in Chart Preoperative Yes Checklist Reviewed/Evaluated Allergies Reviewed Yes Patient is Latex No Sensitive Isolation Not applicable Precautions Noted Level of WDL Consciousness (WDL = Alert, Oriented to Person, Place, and Time) Skin Assessment No Verified Present Upon IVs Arrival to OR Last Modified By: Kiley Scott RN 10/10/19 12:58:37 [facility] IntraOp Intraoperative Equipment Entry 1 Entry 2 Type Monitoring Equipment Equipment Equipment Other ID Number [id number] Setting Intraop Monitoring Electrocardiogram Three lead placement [...] Parker, Katherine, RN 10/10/19 12:59:21 10/10/19 12:59:21 [facility] IntraOp Medication Admin Entry 1 Entry 2 Medication/Irrigant Normal Saline 0.9% lidocaine 2% urojet 1000ml irrigation - 10ml jelly - [id number] Combo Med List Time Administered Route of Irrigation TOPICAL Administration Dose Dose 500 Unit of Measure ml ml Volume Administered By JOMAR JENKINS MD JOHNSON, JUSTIN DALE, MD Procedure Irrigation Irrigant Volume In Irrigant Volume Out Last Modified By: Kiley Scott RN Parker, Katherine, RN 10/10/19 13:02:41 10/10/19 13:02:41 [facility] IntraOp Patient Positioning Entry 1 Procedure Extracorporeal [...] Modified By: Kiley Scott RN 10/10/19 13:05:24 [facility] IntraOp Patient Positioning Audit 10/10/19 13:08:18 Production Painter: DANY Modifier: PARKEK 1 <*> Procedure Extracorporeal Shockwave Lithotripsy(Left), Ureteral Stone Manipulation Laser, Ureteral Stent Insertion 10/10/19 13:05:24 Production Painter: DANY Modifier: PARKEK 1 <*> Procedure Extracorporeal Shockwave Lithotripsy(Left), Ureteral Stone Manipulation Laser, Ureteral Stent Insertion 1 <+> Device Position 1 <*> Positioned By JOMAR JENKINS MD [facility] IntraOp Sign In Entry 1 Patient, Site, [...] Modified By: Kiley Scott RN 10/10/19 13:05:35 [facility] IntraOp Sign Out Entry 1 RN Confirmation [...] Modified By: Kiley Scott RN 10/10/19 13:05:55 [facility] IntraOp Sign Out Audit 10/10/19 13:26:48 Production Painter: PARKEK Modifier: PARKEK <+> 1 RN Sign Out Signature Date/Time [facility] IntraOp Skin Prep Entry 1 Procedure Ureteral Stent Insertion Prescribed N/A Pre-Surgical Prep Completed Prep Area genitalia Intraop Prep Integumentary WDL Assessment WDL Prep Agents Betadine solution Prep by REED MUNOZ RN Hair Removal Methods No hair removal performed Last Modified By: Kiley Scott RN 10/10/19 13:06:37 [facility] IntraOp Skin Prep Audit 10/10/19 13:08:41 Production Painter: GERALDOEK Modifier: PARKEK 1 <*> Procedure Ureteral Stent Insertion 10/10/19 13:08:19 Production Painter: GERALDOEK Modifier: PARKEK 1 <*> Procedure Ureteral Stent Insertion [facility] IntraOp Surgical Procedures Entry 1 Entry 2 [...] Kiley Alexander RN 10/10/19 13:08:41 10/10/19 13:08:41 [facility] IntraOp Surgical Procedures Audit 10/10/19 13:29:51 Production Painter: GERALDOEK Modifier: PARKEK 2 <*> Procedure Ureteral Stent Insertion 2 <+> Specialty 10/10/19 13:29:33 Production Painter: GERALDOEK Modifier: PARKEK 1 <*> Procedure Extracorporeal Shockwave Lithotripsy 10/10/19 13:29:17 Production Painter: GERALDOEK Modifier: PARKEK <+> 1 Stop <+> 2 Stop [facility] IntraOp Temp Regulation Devices Entry 1 Temp Regulation Temperature Warm blankets, Forced Regulation Device Air Warming device Temperature Upper body Regulation Site Temperature monitored per Regulation Comment anesthesia, madie hugger available Last Modified By: Kiley Scott RN 10/10/19 13:08:53 [facility] IntraOP Time Out Entry 1 Procedure to [...] on filedocumented in this encounter Care Teams Intravenous Therapy Nurse Relationship Specialty Start Date End Date Tyrell Magana MD [address] [place] [address] PCP - General Family Medicine 11/15/23 documented as of this encounter
--- OUTSIDE RECORDS SUMMARY | 2025-08-05 09:29 | XMS_ITS | Encounter Summary ---
Author Organization [employer] ([place], [place], [place], [place]) Address [address] [place] [address] Care Team Providers Care Director Business Development Name Role Phone Tyrell Magana MD Primary Care Provider +1- [phone] Encounter Details Date Type Department Care Team (Late st Contact Info) Description 05/15/2021 Transcribed Document [facility] [place] [facility] [place] [address] ProviderBen MD [address] [place] [address] 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 Tobacco Use Types Packs/Day [...] Ben ProviderMD - 05/15/2021 7:56 AM CDT [facility] Main OR IntraOp Summary Primary Physician: JOMAR JENKINS MD Finalized Date/Time: 05/26/21 11:04:59 Pt. Name: CELINE DC /Sex: 1985 Female Med Rec #: [id number] Physician: JOMAR JENKINS MD Financial #: [id number] Pt. Type: O Room/Bed: Admit/Disch: 05/15/21 06:21:00 - 05/15/21 10:33:00 Institution: [facility] IntraOp Case Attendance Entry 1 Entry 2 Entry 3 Case Attendee JOMAR JENKINS MD Poff, Janie, RN Issa Perez Role Performed Surgeon/Proceduralist, Tool Engineer, First Traffic Clerk First Time In 05/15/21 07:37:00 05/15/21 07:37:00 [...] MONTIEL NA CELLAROSI-YORBA, MARIA, MD-ANS Role Performed PILLAR MAN/Nurse Organ Fixer Anesthesiologist of Record Time In 05/15/21 07:37:00 05/15/21 07:37:00 Time Out 05/15/21 08:47:00 05/15/21 08:47:00 Procedure Extracorporeal Extracorporeal Shockwave Shockwave Lithotripsy(Right) Lithotripsy(Right) Other Attendee Superficial Wound Closed By: Last Modified By: Maryan Suarez RN Poff, Janie, RN 05/15/21 08:47:25 05/15/21 08:47:59 [facility] IntraOp Case Attendance Audit 05/15/21 08:47:59 Inspector Balance Wheel Motion: GAYATHRI Modifier: POFFJAN 5 <+> Case Attendee 5 <*> Procedure Extracorporeal Shockwave Lithotripsy(Right) 05/15/21 08:47:25 Inspector Balance Wheel Motion: GAYATHRI Modifier: POFFJAN 1 <+> Time Out [...] Out 5 <*> Procedure Extracorporeal Shockwave Lithotripsy(Right) [facility] IntraOp Case Times Entry 1 Patient In Room Time 05/15/21 07:37:00 Out Room Time 05/15/21 08:47:00 Anesthesia Start Time 05/15/21 07:37:00 Stop Time 05/15/21 08:47:00 Surgery / Procedure Times Start Time 05/15/21 07:56:00 Stop Time 05/15/21 08:42:00 Last Modified By: Maryan Suarez RN 05/15/21 08:47:22 [facility] IntraOp Case Times Audit 05/15/21 08:47:22 Inspector Balance Wheel Motion: POFFJAN Modifier: POFFJAN <+> 1 Out Room Time <+> 1 Stop Time 05/15/21 08:42:50 Inspector Balance Wheel Motion: POFFJAN Modifier: POFFJAN <+> 1 Stop Time [facility] IntraOp Communication Entry 1 Communication To Family/Significant other Comment Procedure start Communication By Maryan Suarez RN Date and Time 05/15/21 08:00:00 Last Modified By: Maryan Suarez RN 05/15/21 08:14:19 [facility] IntraOp Delays Entry 1 Delay Reason Other Duration 7 Minute(s) Comment Surgeon arrived to sign consent and vikash patient at 0730 Last Modified By: Maryan Suarez RN 05/15/21 08:08:46 [facility] IntraOp Departure from OR Entry 1 Integumentary Assessment Integumentary WDL Assessment WDL Transfer/Handoff Transfer to PACU Phase I Handoff Method Phone call Post-op Transport Caridad/Robert Via Patient Transport DARA MONTIEL NA, Accompanied by Maryan Suarez RN Last Modified By: Maryan Suarez RN 05/15/21 08:14:46 [facility] IntraOp Fire Risk Assessment Entry 1 Fire [...] Modified By: Maryan Suarez RN 05/15/21 08:11:41 [facility] IntraOp General Case Bottle Filler 1 Case Information OR OR 19 [facility] Case Level 1 Room Verified Yes Wound Class II - Clean-Contaminated Specialty Urology Anesthesia Type General ASA Class 3 Diagnosis Preop Diagnosis Right renal calculus Postop Same As Preop Yes Postop Diagnosis Right renal calculus Last Modified By: Maryan Suarez RN 05/15/21 08:16:10 [facility] IntraOp Intraoperative Assessment Entry 1 Handoff Report Chastity Erazo, Nurse Received from Bottled Beverage Inspector Handoff Method Bedside/Face to face, Online nursing summary Valid History / Yes Physical in Chart Preoperative Yes Checklist Reviewed/Evaluated Allergies Reviewed Yes Patient is Latex No Sensitive Isolation Not applicable Precautions Noted Level of WDL Consciousness (WDL = Alert, Oriented to Person, Place, and Time) Skin Assessment Yes Verified Present Upon IVs Arrival to OR Last Modified By: Maryan Suarez RN 05/15/21 08:13:19 [facility] IntraOp Intraoperative Equipment Entry 1 Type Monitoring Equipment Intraop Monitoring Electrocardiogram Five lead placement (ECG) Electrode Placement Blood Pressure Non-Invasive BP Device Source Antiembolic Devices Antiembolic Devices Sequential compression device, knee high Antiembolic Device Bilateral Location Antiembolic Device [id number] ID Number Scopes Photo/Video Documentation Photo No Video No Intraop Equipment Sequential compression Comment devices on and in operation prior to induction. Last Modified By: Maryan Suarez RN 05/15/21 08:16:40 [facility] IntraOp Patient Positioning Entry 1 Procedure Extracorporeal [...] Modified By: Maryan Suarez RN 05/15/21 08:10:45 [facility] IntraOp Sign In Entry 1 Patient, Site, [...] Modified By: Maryan Suarez RN 05/15/21 08:08:59 [facility] IntraOp Sign Out Entry 1 RN Confirmation [...] Modified By: Maryan Suarez RN 05/15/21 08:47:36 [facility] IntraOp Sign Out Audit 05/15/21 08:47:36 Inspector Balance Wheel Motion: GAYATHRI Modifier: GAYATHRI <+> 1 RN Sign Out Signature Date/Time 05/15/21 08:17:56 Inspector Balance Wheel Motion: GAYATHRI Modifier: GAYATHRI 1 <*> OUTCOME STATEMENT: Absence of N/A observable signs or symptoms of radiation injury [facility] IntraOp Surgical Procedures Entry 1 Procedure Extracorporeal Shockwave Lithotripsy Modifiers Right Additional Right extracorporeal Procedure shockwave lithotripsy Description Primary Procedure Yes Primary Surgeon JOMAR JENKINS MD Start 05/15/21 07:56:00 Stop 05/15/21 08:42:00 Anesthesia Type General Specialty Urology Wound Class I - Clean Last Modified By: Maryan Suarez RN 05/15/21 08:47:30 [facility] IntraOp Surgical Procedures Audit 05/15/21 08:47:30 Inspector Balance Wheel Motion: GAYATHRI Modifier: GAYATHRI <+> 1 Stop [facility] IntraOp Temp Regulation Devices Entry 1 Temp Regulation Temperature Forced Air Warming Regulation Device device, Room temperature, Warm blankets Temperature 16116 Regulation Device Serial/Unit Number Temperature Upper body Regulation Site Temperature DARA MONTIEL, SYLVAIN Regulation Device Applied by Last Modified By: Maryan Suarez RN 05/15/21 08:17:31 [facility] IntraOP Time Out Entry 1 Procedure to [...] WATTSDR Correct Billing Electronically signed by [facility] Conversion Microfilm Machine Operator Cerner at 03/13/2023 6:58 PM CDT documented in this encounter Plan of Treatment Not on file documented as of this encounter Visit Diagnoses Not on filedocumented in this encounter Care Teams Director Business Development Relationship Specialty Start Date End Date Tyrell Magana MD [address] [place] [address] PCP - General Family Medicine 11/15/23 documented as of this encounter
--- OUTSIDE RECORDS SUMMARY | 2025-08-05 09:29 | XMS_ITS | Encounter Summary ---
Author Organization [facility] Address [address] [place] [address] Care Team Providers Care Music Therapy Specialist Name Role Phone Dustin Gomez MD Primary [...] on filedocumented in this encounter Care Teams Music Therapy Specialist Relationship Specialty Start Date End Date Dustin Gomez MD PCP - General 08/02/08 02/11/14 Vicki Villavicencio [place] PCP - General Family Medicine 02/12/14 12/30/17 documented as of this encounter
--- OUTSIDE RECORDS SUMMARY | 2025-08-05 09:29 | XMS_ITS | Encounter Summary ---
Author Organization [employer] ([place], [place], [place], [place]) Address [address] [place] [address] Care Team Providers Care [place] Name Role Phone Tyrell Magana MD Primary Care Provider +1- [phone] Encounter Details Date Type Department Care Team (Late st Contact Info) Description 10/10/2019 Transcribed Document [facility] [place] [address] [place] [address] ProviderBen MD [address] [place] [address] 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 Tobacco Use Types [...] - Ben ProviderMD - 10/10/2019 12:22 PM BRAIDER SETTER [facility] Main OR PostOp Summary Primary Physician: JOMAR JENKINS MD Finalized Date/Time: 10/10/19 15:33:31 Pt. Name: CELINE DC /Sex: 1985 Female Med Rec #: [id number] Physician: JOMAR JENKINS MD Financial #: [id number] Pt. Type: O Room/Bed: /1 Admit/Disch: 10/10/19 [...] RN 10/10/19 15:33 Electronically signed by Segundo [facility] Conversion Cost And Sales Record Supervisor Cerner at 03/13/2023 7:13 PM CDT documented in this encounter Plan of Treatment Not on file documented as of this encounter Visit Diagnoses Not on filedocumented in this encounter Care Teams [place] Relationship Specialty Start Date End Date Tyrell Magana MD [address] [place] [address] PCP - General Family Medicine 11/15/23 documented as of this encounter
--- OUTSIDE RECORDS SUMMARY | 2025-08-05 09:29 | XMS_ITS | Encounter Summary ---
Author Organization [employer] ([place], [place], [place], [place]) Address [address] [place] [address] Care Team Providers Care Montessori Program Director Name Role Phone Tyrell Magana MD Primary Care Provider +1- [phone] Encounter Details Date Type Department Care Team (Late st Contact Info) Description 10/10/2019 Transcribed Document [facility] [place] [address] [place] [address] ProviderBen MD [address] [place] [address] 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 Tobacco Use Types [...] - Ben ProviderMD - 10/10/2019 12:22 PM FLAT IRONER [facility] Main OR PACU Summary Primary Physician: JOMAR JENKINS MD Finalized Date/Time: 10/10/19 14:18:09 Pt. Name: CELINE DC /Sex: 1985 Female Med Rec #: [id number] Physician: JOMAR JENKINS MD Financial #: [id number] Pt. Type: O Room/Bed: /1 Admit/Disch: 10/10/19 09:16:00 - Institution: [facility] Main OR PACU I Case Times Entry 1 In PACU I 10/10/19 13:39:00 Ready for PACU 10/10/19 14:00:00 Discharge Discharge from PACU 10/10/19 14:20:00 I Last Modified By: Aisha Bone RN 10/10/19 14:17:55 [facility] Main OR PACU Acuity Entry 1 Start Time 10/10/19 14:00:00 Stop Time 10/10/19 14:20:00 Acuity Level [facility] PACU Acuity I Last Modified By: Aisha Bone RN 10/10/19 14:18:05 Finalized By: Aisha Bone RN Document Signatures Signed By: Aisha Bone RN 10/10/19 14:18 Electronically signed by [facility] Conversion Production Expert Cerner at 03/13/2023 7:13 PM CDT documented in this encounter Plan of Treatment Not on file documented as of this encounter Visit Diagnoses Not on filedocumented in this encounter Care Teams Montessori Program Director Relationship Specialty Start Date End Date Tyrell Magana MD [address] [place] [address] PCP - General Family Medicine 11/15/23 documented as of this encounter
--- OUTSIDE RECORDS SUMMARY | 2025-08-05 09:29 | XMS_ITS | Encounter Summary ---
Author Organization [employer] ([place], [place], [place], [place]) Address [address] [place] [address] Care Team Providers Care Reformatory Attendant Name Role Phone Tyrell Magana MD Primary Care Provider +1- [phone] Encounter Details Date Type Department Care Team (Late st Contact Info) Description 05/15/2021 Transcribed Document [facility] [place] [facility] [place] [address] ProviderBen MD [address] [place] [address] 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 Tobacco Use Types Packs/Day [...] Ben ProviderMD - 05/15/2021 7:56 AM CDT [facility] Main OR PACU Summary Primary Physician: JOMAR JENKINS MD Finalized Date/Time: 05/15/21 09:30:35 Pt. Name: CELINE DC /Sex: 1985 Female Med Rec #: [id number] Physician: JOMAR JENKINS MD Financial #: [id number] Pt. Type: O Room/Bed: Admit/Disch: 05/15/21 06:21:00 - Institution: [facility] Main OR PACU I Case Times Entry 1 In PACU I 05/15/21 08:50:00 Ready for PACU 05/15/21 09:22:00 Discharge Discharge from PACU 05/15/21 09:22:00 I Last Modified By: Anjelica Cueto RN 05/15/21 09:29:46 Finalized By: Anjelica Cueto RN Document Signatures Signed By: Anjelica Cueto RN 05/15/21 09:30 Electronically signed by [facility] Conversion Veterinary Surgery Technologist Cerner at 03/13/2023 7:21 PM CDT documented in this encounter Plan of Treatment Not on file documented as of this encounter Visit Diagnoses Not on filedocumented in this encounter Care Teams Reformatory Attendant Relationship Specialty Start Date End Date Tyrell Magana MD [address] [place] [address] PCP - General Family Medicine 11/15/23 documented as of this encounter
--- OUTSIDE RECORDS SUMMARY | 2025-08-05 09:29 | XMS_ITS | Encounter Summary ---
Author Organization [employer] ([place], [place], [place], [place]) Address [address] [place] [address] Care Team Providers Care Infection Control Preventionist Name Role Phone Tyrell Magana MD Primary Care Provider [phone]- [phone] Encounter Details Date Type Department Care Team (Late st Contact Info) Description 05/15/2021 Transcribed Document [facility] Family [place] [facility] [place] [address] ProviderBen MD [address] [place] [id number] 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 Tobacco Use Types Packs/Day [...] Ben ProviderMD - 05/15/2021 7:56 AM CDT [facility] Main OR Preop Summary Primary Physician: JOMAR JENKINS MD Finalized Date/Time: 05/15/21 15:48:11 Pt. Name: CELINE DC /Sex: 1985 Female Med Rec #: [id number] Physician: JOMAR JENKINS MD Financial #: [id number] Pt. Type: O Room/Bed: /11 Admit/Disch: 05/15/21 06:21:00 - 05/15/21 10:33:00 Institution: [facility] PreOp Case Times Entry 1 In Preop 05/15/21 06:54:00 Ready for Holding n/a Room Patient Ready for 05/15/21 07:26:00 Surgery Patient Out of Preop 05/15/21 07:37:00 Patient Out of n/a Holding Room Last Modified By: Heather Lipscomb, RN 05/15/21 15:48:10 [facility] PreOp Case Times Audit 05/15/21 15:48:10 Cytopathologist: [id number] Modifier: JUDITH <+> 1 Patient Out of Preop Finalized By: Heather Lipscomb, RN Document Signatures Signed By: Heather Lipscomb RN 05/15/21 15:48 documented in this encounter Plan of Treatment Not on file documented as of this encounter Visit Diagnoses Not on filedocumented in this encounter Care Teams Infection Control Preventionist Relationship Specialty Start Date End Date Tyrell Magana MD [address] [place] [id number] PCP - General Family Medicine 11/15/23 documented as of this encounter
--- OUTSIDE RECORDS SUMMARY | 2025-08-05 09:29 | XMS_ITS | Encounter Summary ---
Author Organization [employer] ([place], [place], [place], [place]) Address [address] [place] [address] Care Team Providers Care Supervisor Stone Name Role Phone Tyrell Magana MD Primary Care Provider [phone]- [phone] Encounter Details Date Type Department Care Team (Late st Contact Info) Description 05/15/2021 Transcribed Document [facility] Family Medicine [facility] [place] [address] ProviderBen MD [address] [place] [address] 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 Tobacco Use Types [...] 1985 Associated Diagnoses: None Author: SIMIN STILES, CHIEF SECURITY OFFICER Chief Complaint R renal stone Review of [...] Facet Joint Syndrome, 0 Refill(s) Flonase: 1 [place], Nostrils Both, Daily, PRN: Allergies, 0 Refill(s) [...] 5 mg, PRN, Oral, BID Flonase 1 [place], PRN, Nostrils Both, Daily glycopyrrolate 1 mg [...] Problems Urinary tract infection / SNOMED CT 255805133 / Confirmed Sinusitis / SNOMED CT 16750716 / Confirmed Renal calculus / SNOMED CT 058519531 / Confirmed Migraine / SNOMED CT 33042008 / Confirmed Kidney stone / SNOMED CT 893314207 / Confirmed Insulin resistance / SNOMED CT 5794714133 / Confirmed High blood pressure / SNOMED CT 87773866 / Confirmed 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 kidney stone [...] EDT Height Source Measured Height Entry Format [place] Height/Length, SRI LANKAN (ft) 0 ft Height/Length SRI LANKAN 66 Inch CLINICALHEIGHT 167.64 cm [place] Body Weight 59 kg Weight Source Standing scale Weight Entry Format [place] Weight [place] lb 229 lb Weight [place] oz 8 oz CLINICALWEIGHT 104.32 kg Body [...] of motion, Normal strength. Integumentary: Warm, Dry, [place]. Neurologic: Alert, Oriented. Psychiatric: Cooperative, Appropriate mood [...] filedocumented in this encounter Care Teams Supervisor Stone Relationship Specialty Start Date End Date Tyrell Magana MD [address] [place] [address] PCP - General Family Medicine 11/15/23 documented as of this encounter
== END 2025-08-01 23:59 ==
LOC: LAB.DROPOF 08-05 09:23
PROVIDERS: PCP Family Medicine; Visit Provider Family Medicine
DX: N39.0 Urinary tract infection, site not specified (principal)
CPT/HCPCS: 87086

== ENCOUNTER 2025-08-20 16:00 | Outpatient (RCR) | payer BC, SELFPAY | END 2025-08-27 10:45 | disposition home or self-care (01) | LOC: PT.CARL 16:00 | PROVIDERS: PCP Nurse Practitioner Family; Visit Provider Orthopaedic Surgery | DX: M72.2 Plantar fascial fibromatosis (principal) | CPT/HCPCS: 20560; 97032; 97110; 97112; 97140; 97530 ==